=== PATIENT | female | born 1960 | race African-American/Black ===

== ENCOUNTER 2016-10-30 14:44 | Inpatient (IN) | payer OTHER ==
[~2016-10-30] VITALS: Ht 162.6 cm; Wt 70.9 kg
[~2016-10-30 14:44] MED LIST: ALPR0.5T6 PO; AMLO10TA2 PO; CALC667C6 PO; CALC667T3 PO; CARV12.52 PO; DIVA250T4 PO; DIVA500T17 PO; GABA-586 PO; HYDR-2869 PO; LAMO25TA PO; LEVO125T5 PO; NICO1PAT21 TP; OLAN10TA7 PO; ONDA4TAB10 SL; OXYC10TA PO; OXYC10TA57 PO; RISP4TAB2 PO; SERT100T PO; SEVE800T PO; SIMV40TA3 PO
--- NOTE | 2016-10-30 15:25 | PHYS DOC ---
Past Medical History Past Medical History: Diabetes-Type II, High Cholesterol, Hypertension, Hypothyroid, Hepatitis, Renal Disease, Renal Failure, Schizophrenia Additional Past Medical Histor: HEP C, CHRONIC BACK/HIP PAIN, DRUG SEEKING BEHAVIOR, PCP Past Surgical History: Cholecystectomy, Hysterectomy Additional Past Surgical Histo: R ARM Fistula, back surgery Alcohol Use: None Drug Use: Cocaine, Phencyclidine Adult General Chief Complaint Chief Complaint: ABDOMINAL PAIN HPI HPI 25-year-old female presenting to the emergency department today with abdominal pain in the left lower quadrant. She also reports missing dialysis on Sunday. Her pain is sharp intermittent and not associated with nausea or vomiting. She denies fevers or chills. She last ate approximately 10 AM. She reports having a bowel movement today that was formed. She denies chest pain or shortness of breath. The pain radiates to her left leg. Review of systems is negative for chest pain shortness of breath nausea vomiting fevers or chills. All other review of systems is negative unless otherwise noted in history of present illness. Review of Systems Review of Systems SEE ABOVE. Current Medications Current Medications Current Medications Medications (Trade) Dose Ordered Sig/Zayda Start Time Stop Time Status Last Admin Dose Admin Acetaminophen (Tylenol) 650 mg PRN Q6HRS PRN 10/30/16 19:30 UNV Acetaminophen/ Hydrocodone Bitart (Lortab 5/325) 1 tab PRN Q4HRS PRN 10/30/16 19:30 10/30/16 19:46 1 TAB Alprazolam (Xanax) 0.5 mg PRN Q8HRS PRN 10/30/16 19:30 10/30/16 22:05 0.5 MG Aspirin (Children'S Aspirin) 324 mg 1X ONCE 10/30/16 17:00 10/30/16 17:01 DC 10/30/16 17:05 324 MG Non-Formulary Medication 1 tab PRN BID PRN 10/30/16 19:30 10/30/16 19:34 DC Ondansetron HCl (Zofran) 4 mg PRN Q6HRS PRN 10/30/16 19:30 Allergies Allergies Allergies Coded Allergies Type Severity Reaction Last Updated Verified tramadol Adverse Reaction Intermediate VOMITING 04/05/16 Yes Physical Exam Physical Exam Constitutional: Well developed, well nourished, no acute distress, non-toxic appearance. HENT: Normocephalic, atraumatic, bilateral external ears normal, oropharynx moist, no oral exudates, nose normal. [] Eyes: PERRLA, EOMI, conjunctiva normal, no discharge. [] Neck: Normal range of motion, no tenderness, supple, no stridor. Cardiovascular:Heart rate regular rhythm, no murmur [] Lungs & Thorax: Bilateral breath sounds clear to auscultation [] Abdomen: Soft mild tenderness in left lower quadrant without rebound tenderness or guarding present. Skin: Warm, dry, no erythema, no rash. [] Back: No tenderness, no CVA tenderness. Extremities: No tenderness, no cyanosis, no clubbing, ROM intact, no edema. [] Neurologic: Alert and oriented X 3, normal motor function, normal sensory function, no focal deficits noted. Psychologic: Affect normal, judgement normal, mood normal. Current Patient Data Vital Signs Vital Signs Date Time Temp Pulse Resp B/P Pulse Ox O2 Delivery O2 Flow Rate FiO2 10/30/16 19:30 78 18 151/73 98 Room Air 10/30/16 15:00 98.3 98.3 Lab Values Laboratory Tests Test 10/30/16 16:10 10/30/16 16:25 10/30/16 17:20 White Blood Count 5.7x10^3/uL (4.0-11.0) Red Blood Count 2.61x10^6/uL (3.50-5.40) L Hemoglobin 7.4g/dL (12.0-15.5) L Hematocrit 22.7% (36.0-47.0) L Mean Corpuscular Volume 87fL (79-100) Mean Corpuscular Hemoglobin 28pg (25-35) Mean Corpuscular Hemoglobin Concent 33g/dL (31-37) Red Cell Distribution Width 16.6% (11.5-14.5) H Platelet Count 136x10^3/uL (140-400) L Neutrophils (%) (Auto) 65% (31-73) Lymphocytes (%) (Auto) 18% (24-48) L Monocytes (%) (Auto) 14% (0-9) H Eosinophils (%) (Auto) 2% (0-3) Basophils (%) (Auto) 1% (0-3) Neutrophils # (Auto) 3.7x10^3uL (1.8-7.7) Lymphocytes # (Auto) 1.0x10^3/uL (1.0-4.8) Monocytes # (Auto) 0.8x10^3/uL (0.0-1.1) Eosinophils # (Auto) 0.1x10^3/uL (0.0-0.7) Basophils # (Auto) 0.0x10^3/uL (0.0-0.2) Sodium Level 141mmol/L (136-145) Potassium Level 5.1mmol/L (3.5-5.1) Chloride Level 102mmol/L (98-107) Carbon Dioxide Level 24mmol/L (21-32) Anion Gap 15 (6-14) H Blood Urea Nitrogen 74mg/dL (7-20) H Creatinine 9.7mg/dL (0.6-1.0) H Estimated GFR (Cockcroft-Gault) 5.1 Glucose Level 90mg/dL (70-99) Lactic Acid Level 0.4mmol/L (0.4-2.0) Calcium Level 8.6mg/dL (8.5-10.1) Total Bilirubin 0.5mg/dL (0.2-1.0) Direct Bilirubin 0.2mg/dL (0.0-0.2) Aspartate Amino Transferase (AST) 37U/L (15-37) Alanine Aminotransferase (ALT) 25U/L (14-59) Alkaline Phosphatase 111U/L (46-116) Troponin I Quantitative 0.371ng/mL (0.000-0.055) VY-Exm-V-Type Natriuretic Peptide > 31232bb/mL (0-124) H Total Protein 6.8g/dL (6.4-8.2) Albumin 3.0g/dL (3.4-5.0) L Lipase 151U/L (73-393) POC Urine HCG, Qualitative Hcg negative (Negative) Urine Collection Type Unknown Urine Color Yellow Urine Clarity Cloudy Urine pH 8.0 Urine Specific [place] 1.015 Urine Protein >=300mg/dL (NEG-TRACE) Urine Glucose (UA) 100mg/dL (NEG) Urine Ketones (Stick) Negativemg/dL (NEG) Urine Blood Small (NEG) Urine Nitrite Negative (NEG) Urine Bilirubin Negative (NEG) Urine Urobilinogen Dipstick 0.2mg/dL (0.2 mg/dL) Urine Leukocyte Esterase Negative (NEG) Urine RBC Occ/HPF (0-2) Urine WBC 1-4/HPF (0-4) Urine Squamous Epithelial Cells Many/LPF Urine Bacteria Moderate/HPF (0-FEW) Urine Yeast Present/HPF Laboratory Tests 10/30/16 16:10 Laboratory Tests 10/30/16 16:10 EKG EKG [] Radiology/Procedures Radiology/Procedures [] Course & Med Decision Making Course & Med Decision Making Pertinent Labs and Imaging studies reviewed. (See chart for details) [] 55-year-old female presenting to the emergency department today with abdominal pain and after missing dialysis on Sunday. Initially the patient's vital signs afebrile normal heart rate. Mild hypertension present. Saturating well on room air. Pertinent physical exam showed mild tenderness in the left lower quadrant. IV established, blood work obtained, CT the abdomen pelvis performed. Troponin positive. ProBNP significantly elevated likely secondary to not being dialyzed on Sunday. Lactic acid within normal limits. CBC shows anemia of 7.4 down approximately 1. from previous. Urinalysis shows moderate bacteria with many squamous cells contaminated probably. Given the patient's anemia lack of dialysis and significant abdominal pain. The patient was admitted for further evaluation workup and care. Dragon Disclaimer Dragon Disclaimer This electronic medical record was generated, in whole or in part, using a voice recognition dictation system. Departure Departure Impression: Primary Impression: Abdominal pain Additional Impression: ESRD (end stage renal disease) Disposition: ADMITTED INPATIENT Condition: STABLE Referrals: NO PCP (PCP) ROLA STACY MD Patient Instructions: Abdominal Pain Problem Qualifiers ARIANNA ALLEN MD Oct 30, 2016 15:25
--- NOTE | 2016-10-30 15:33 | RAD ---
Portable chest, 10/30/2016: History: Weakness, difficulty urinating Comparison is made to a study from 04/23/2016. The heart is generally enlarged. The pulmonary vascularity is within normal limits. No pulmonary consolidation is seen. There is no evidence of pleural fluid. IMPRESSION: Moderate unchanged cardiomegaly.
--- NOTE | 2016-10-30 15:54 | RAD ---
Indication abdominal pain and flank pain. The study is limited. No IV or gastrointestinal contrast was administered. No prior CT imaging of the abdomen or pelvis is available. There are pleural-parenchymal changes at the lung bases probably reflecting scar. There is diffuse soft tissue swelling suggesting a systemic process such as anasarca. There is some generalized cardiomegaly. A focal mass lesion is not seen in the liver or spleen. The pancreas is grossly normal. There is some soft tissue prominence surrounding the aorta. It is uncertain whether these represents unopacified bowel loops or adenopathy. Multiple surgical clips are seen in the retroperitoneum. The circle kidneys are very small. There is no suggested hydronephrosis. Acute finding in the abdomen is not seen. There is some diastases of the rectus muscles at the level of the umbilicus. Significant plaquing is noted associated with the abdominal aorta. There is a small to moderate amount of free fluid in the pelvis. No definite acute finding is not seen. IMPRESSION: Probable pleural-parenchymal scarring at the lung bases. [place] kidneys are very small. Clinical correlation advised. Retroperitoneal adenopathy versus unopacified bowel loops. Suggested anasarca. Moderate amount of free fluid in the pelvis. No definite acute finding seen in the abdomen or pelvis PQRS Compliance Statement: One or more of the following individualized dose reduction techniques were utilized for this examination: 1. Automated exposure control 2. Adjustment of the mA and/or kV according to patient size 3. Use of iterative reconstruction technique
--- NOTE | 2016-10-30 16:15 | EKG ---
[facility] [address] [place] [address] Test Date: 2016-10-30 Test Time: 15:47:15 Pat Name: BUDDY GUERRA Department: Room: Gender: F Container Washer: : 1960 Requested By: ARIANNA ALLEN Order Number: [id number] Reading MD: Tien Turcios Measurements Intervals [place] Rate: 75 P: 51 ID: [id number] QRS: -43 QRSD: 118 T: 18 QT: 442 QTc: 497 Interpretive Statements SINUS RHYTHM LEFT ATRIAL ABNORMALITY ABNORMAL LEFT AXIS DEVIATION LEFT ANTERIOR FASCICULAR BLOCK INCOMPLETE RIGHT BUNDLE BRANCH BLOCK QRS(T) CONTOUR ABNORMALITY CONSIDER ANTEROSEPTAL MYOCARDIAL DAMAGE PROLONGED QT ABNORMAL ECG Electronically Signed On 11-13-2016 15:26:52 CDT by Tien Turcios
[2016-10-30 16:31] LABS: BASO % 1 % (0-3); EOS % 2 % (0-3); HEMATOCRIT 22.7 % (36.0-47.0); HEMOGLOBIN 7.4 g/dL (12.0-15.5); LYMPH % 18 % (24-48); MEAN CORPUSCULAR HEMOGLOBIN 28 pg (25-35); MEAN CORPUSCULAR HGB CONC 33 g/dL (31-37); MEAN CORPUSCULAR VOLUME 87 fL (79-100); MONO % 14 % (0-9); NEUT % 65 % (31-73); PLATELET COUNT 136 x10^3/uL (140-400); RED BLOOD COUNT 2.61 x10^6/uL (3.50-5.40); RED CELL DISTRIBUTION WIDTH 16.6 % (11.5-14.5); WHITE BLOOD COUNT 5.7 x10^3/uL (4.0-11.0)
[2016-10-30 16:42] LABS: CALCIUM 8.6 mg/dL (8.5-10.1); CREATININE 9.7 mg/dL (0.6-1.0); GFR 5.1; POTASSIUM 5.1 mmol/L (3.5-5.1)
[2016-10-30 16:49] LABS: DIRECT BILIRUBIN 0.2 mg/dL (0.0-0.2); TOTAL BILIRUBIN 0.5 mg/dL (0.2-1.0); TOTAL PROTEIN 6.8 g/dL (6.4-8.2)
[2016-10-30] MEDS ORDERED: ASPIRIN 81 MG TAB.CHEW PO ONE (17:00)
[2016-10-30 17:38] LABS: BILIRUBIN,URINE NEGATIVE (NEG); GLUCOSE,URINE 100 mg/dL (NEG); NITRITE,URINE NEGATIVE (NEG); PROTEIN,URINE >=300 mg/dL (NEG-TRACE); UROBILINOGEN,URINE 0.2 mg/dL (0.2 mg/dL)
[2016-10-30 17:48] LABS: BACTERIA,URINE MODERATE /HPF (0-FEW); RBC,URINE OCC /HPF (0-2); SQUAMOUS EPITHELIAL CELL,UR MANY /LPF; YEAST,URINE PRESENT /HPF
[2016-10-30] MEDS ORDERED: ACETAMINOPHEN 325 MG TABLET. PO PRN (19:30)
[2016-10-30] MEDS ORDERED: NON FORMULARY ITEM (Oxycodone Hcl 1 TAB) PO PRN (19:30)
[2016-10-30] MEDS ORDERED: hydrALAZINE 20 MG/ML VIAL. IVP PRN (19:45)
[2016-10-30] MEDS: HYDROCODONE/APAP 5/325MG TABLET. PO PRN (19:46)
--- NOTE | 2016-10-30 19:48 | PDOC1 ---
History and Physical Date of Admission Date of Admission 10/30/16 Identification/Chief Complaint Chief Complaint LLQ pain Problems: Source Source: Chart review, Patient History of Present Illness History of Present Illness HPI HPI 55-year-old female presenting to the emergency department today with abdominal pain in the left lower quadrant. 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 Very uncompliant to her HD, missed her HD again last Sat, and signed AMA to [facility] before and nobody would like to take her. She said she started to have LLQ abd pain from yesterday, with some nausea, no vomiting, usually has constipation last time was today, normal to her. She said she was in [facility] last week for gib , got EGD found she has stomach bleeding. She also said she has rectal bleeding yesterday. denies fever, chills, cough, sob, chest pain. CT found some free pelvic fluid, otherwise unremarkable. Past Medical History Cardiovascular: HTN Pulmonary: No pertinent hx CENTRAL NERVOUS SYSTEM: Carpal Tunnel Syndrome GI: No pertinent hx Heme/Onc: Anemia NOS Renal/: Chronic renal failure Endocrine: No pertinent hx, Diabetes, Hyperparathyroidism Past Surgical History Past Surgical History: No pertinent history Family History Family History: No Significant Social History Smoke: 1 pack per day ALCOHOL: none Drugs: None Current Problem List Problem List Problems Medical Problems: (1) Abdominal pain Status: Acute Current Medications Current Medications Current Medications Medications (Trade) Dose Ordered Sig/Zayda Start Time Stop Time Status Last Admin Dose Admin Acetaminophen (Tylenol) 650 mg PRN Q6HRS PRN 10/30/16 19:45 Acetaminophen/ Hydrocodone Bitart (Lortab 5/325) 1 tab PRN Q4HRS PRN 10/30/16 19:30 Alprazolam (Xanax) 0.5 mg PRN Q8HRS PRN 10/30/16 19:30 Amlodipine Besylate (Norvasc) 10 mg DAILY 10/31/16 09:00 UNV Aspirin (Children'S Aspirin) 324 mg 1X ONCE 10/30/16 17:00 10/30/16 17:01 DC 10/30/16 17:05 324 MG Calcium Acetate (Phoslo) 667 mg TIDWMEALS 10/31/16 08:00 UNV Carvedilol (Coreg) 12.5 mg BIDWMEALS 10/31/16 08:00 UNV Divalproex Sodium (Depakote) 250 mg TID 10/30/16 21:00 UNV Gabapentin (Neurontin) 300 mg DAILY 10/31/16 09:00 UNV Heparin Sodium (Porcine) 5,000 unit Q8HRS 10/30/16 22:00 UNV Hydralazine HCl (Apresoline) 10 mg PRN Q5MIN PRN 10/30/16 19:45 UNV Lamotrigine (LaMICtal) 25 mg DAILY 10/31/16 09:00 UNV Levothyroxine Sodium (Synthroid) 125 mcg DAILYAC 10/31/16 07:30 UNV Nicotine (Nicoderm Cq 21mg) 1 patch DAILY 10/31/16 09:00 UNV Non-Formulary Medication 800 mg TIDWMEALS 10/31/16 08:00 UNV Ondansetron HCl (Zofran) 4 mg PRN Q6HRS PRN 10/30/16 19:30 Simvastatin (Zocor) 40 mg HS 10/30/16 21:00 UNV Allergies Allergies Allergies Coded Allergies Type Severity Reaction Last Updated Verified tramadol Adverse Reaction Intermediate VOMITING 04/05/16 Yes ROS Review of System CONSTITUTIONAL: No fever or chills EYES: No recent changes SKIN: No rash or itching CARDIOVASCULAR: No chest pain, syncope, palpitations, or edema RESPIRATORY: No SOB or cough GASTROINTESTINAL: No nausea, vomiting or abdominal pain NEUROLOGICAL: No headaches or weakness ENDOCRINE: No cold or heat intolerance GENITOURINARY: No urgency or frequency of urination MUSCULOSKELETAL: No back pain or joint pain LYMPHATICS: No enlarged lymph nodes PSYCHIATRIC: No anxiety or depression Physical Exam Physical Exam GEN.: No apparent distress. Alert and oriented. HEENT: Head is normocephalic, atraumatic NECK: Supple. LUNGS: Clear to auscultation. HEART: RRR, S1, S2 present. Peripheral pulses intact ABDOMEN: Soft, Positive bowel sounds. mild epigastric and LLQ tenderness EXTREMITIES: Without any cyanosis. NEUROLOGIC: Normal speech, normal tone PSYCHIATRIC: Normal affect, normal mood. SKIN: No ulcerations Vitals Vitals Vital Signs Date Time Temp Pulse Resp B/P Pulse Ox O2 Delivery O2 Flow Rate FiO2 10/30/16 18:30 80 18 149/74 98 Room Air 10/30/16 15:00 98.3 98.3 Labs Labs Laboratory Tests Test 10/30/16 16:10 10/30/16 16:25 10/30/16 17:20 White Blood Count 5.7x10^3/uL (4.0-11.0) Red Blood Count 2.61x10^6/uL (3.50-5.40) Hemoglobin 7.4g/dL (12.0-15.5) Hematocrit 22.7% (36.0-47.0) Mean Corpuscular Volume 87fL (79-100) Mean Corpuscular Hemoglobin 28pg (25-35) Mean Corpuscular Hemoglobin Concent 33g/dL (31-37) Red Cell Distribution Width 16.6% (11.5-14.5) Platelet Count 136x10^3/uL (140-400) Neutrophils (%) (Auto) 65% (31-73) Lymphocytes (%) (Auto) 18% (24-48) Monocytes (%) (Auto) 14% (0-9) Eosinophils (%) (Auto) 2% (0-3) Basophils (%) (Auto) 1% (0-3) Neutrophils # (Auto) 3.7x10^3uL (1.8-7.7) Lymphocytes # (Auto) 1.0x10^3/uL (1.0-4.8) Monocytes # (Auto) 0.8x10^3/uL (0.0-1.1) Eosinophils # (Auto) 0.1x10^3/uL (0.0-0.7) Basophils # (Auto) 0.0x10^3/uL (0.0-0.2) Sodium Level 141mmol/L (136-145) Potassium Level 5.1mmol/L (3.5-5.1) Chloride Level 102mmol/L (98-107) Carbon Dioxide Level 24mmol/L (21-32) Anion Gap 15 (6-14) Blood Urea Nitrogen 74mg/dL (7-20) Creatinine 9.7mg/dL (0.6-1.0) Estimated GFR (Cockcroft-Gault) 5.1 Glucose Level 90mg/dL (70-99) Lactic Acid Level 0.4mmol/L (0.4-2.0) Calcium Level 8.6mg/dL (8.5-10.1) Total Bilirubin 0.5mg/dL (0.2-1.0) Direct Bilirubin 0.2mg/dL (0.0-0.2) Aspartate Amino Transf (AST/SGOT) 37U/L (15-37) Alanine Aminotransferase (ALT/SGPT) 25U/L (14-59) Alkaline Phosphatase 111U/L (46-116) Troponin I Quantitative 0.371ng/mL (0.000-0.055) UT-Jpo-R-Type Natriuretic Peptide > 39024uc/mL (0-124) Total Protein 6.8g/dL (6.4-8.2) Albumin 3.0g/dL (3.4-5.0) Lipase 151U/L (73-393) Bedside Urine HCG, Qualitative Hcg negative (Negative) Urine Collection Type Unknown Urine Color Yellow Urine Clarity Cloudy Urine pH 8.0 Urine Specific [place] 1.015 Urine Protein >=300mg/dL (NEG-TRACE) Urine Glucose (UA) 100mg/dL (NEG) Urine Ketones (Stick) Negativemg/dL (NEG) Urine Blood Small (NEG) Urine Nitrite Negative (NEG) Urine Bilirubin Negative (NEG) Urine Urobilinogen Dipstick 0.2mg/dL (0.2 mg/dL) Urine Leukocyte Esterase Negative (NEG) Urine RBC Occ/HPF (0-2) Urine WBC 1-4/HPF (0-4) Urine Squamous Epithelial Cells Many/LPF Urine Bacteria Moderate/HPF (0-FEW) Urine Yeast Present/HPF Laboratory Tests Test 10/30/16 16:10 10/30/16 16:25 10/30/16 17:20 White Blood Count 5.7x10^3/uL (4.0-11.0) Red Blood Count 2.61x10^6/uL (3.50-5.40) Hemoglobin 7.4g/dL (12.0-15.5) Hematocrit 22.7% (36.0-47.0) Mean Corpuscular Volume 87fL (79-100) Mean Corpuscular Hemoglobin 28pg (25-35) Mean Corpuscular Hemoglobin Concent 33g/dL (31-37) Red Cell Distribution Width 16.6% (11.5-14.5) Platelet Count 136x10^3/uL (140-400) Neutrophils (%) (Auto) 65% (31-73) Lymphocytes (%) (Auto) 18% (24-48) Monocytes (%) (Auto) 14% (0-9) Eosinophils (%) (Auto) 2% (0-3) Basophils (%) (Auto) 1% (0-3) Neutrophils # (Auto) 3.7x10^3uL (1.8-7.7) Lymphocytes # (Auto) 1.0x10^3/uL (1.0-4.8) Monocytes # (Auto) 0.8x10^3/uL (0.0-1.1) Eosinophils # (Auto) 0.1x10^3/uL (0.0-0.7) Basophils # (Auto) 0.0x10^3/uL (0.0-0.2) Sodium Level 141mmol/L (136-145) Potassium Level 5.1mmol/L (3.5-5.1) Chloride Level 102mmol/L (98-107) Carbon Dioxide Level 24mmol/L (21-32) Anion Gap 15 (6-14) Blood Urea Nitrogen 74mg/dL (7-20) Creatinine 9.7mg/dL (0.6-1.0) Estimated GFR (Cockcroft-Gault) 5.1 Glucose Level 90mg/dL (70-99) Lactic Acid Level 0.4mmol/L (0.4-2.0) Calcium Level 8.6mg/dL (8.5-10.1) Total Bilirubin 0.5mg/dL (0.2-1.0) Direct Bilirubin 0.2mg/dL (0.0-0.2) Aspartate Amino Transf (AST/SGOT) 37U/L (15-37) Alanine Aminotransferase (ALT/SGPT) 25U/L (14-59) Alkaline Phosphatase 111U/L (46-116) Troponin I Quantitative 0.371ng/mL (0.000-0.055) GY-Jqa-W-Type Natriuretic Peptide > 64241jp/mL (0-124) Total Protein 6.8g/dL (6.4-8.2) Albumin 3.0g/dL (3.4-5.0) Lipase 151U/L (73-393) Bedside Urine HCG, Qualitative Hcg negative (Negative) Urine Collection Type Unknown Urine Color Yellow Urine Clarity Cloudy Urine pH 8.0 Urine Specific [place] 1.015 Urine Protein >=300mg/dL (NEG-TRACE) Urine Glucose (UA) 100mg/dL (NEG) Urine Ketones (Stick) Negativemg/dL (NEG) Urine Blood Small (NEG) Urine Nitrite Negative (NEG) Urine Bilirubin Negative (NEG) Urine Urobilinogen Dipstick 0.2mg/dL (0.2 mg/dL) Urine Leukocyte Esterase Negative (NEG) Urine RBC Occ/HPF (0-2) Urine WBC 1-4/HPF (0-4) Urine Squamous Epithelial Cells Many/LPF Urine Bacteria Moderate/HPF (0-FEW) Urine Yeast Present/HPF VTE Prophylaxis Ordered VTE Prophylaxis Devices: Yes VTE Pharmacological Prophylaxi: Yes Assessment/Plan Assessment/Plan 1. abd pain, with chronic constipation likely 2. ESRD on HD 3. Type 2 diabetes 4. High cholesterol 5. Hypertension 6. Hypothyroidism 7. Hepatitis C 8. h/o PCP Abuse 9. Chronic back and hip pain 10. acute on chronic anemia, with ESRD, recent GIB 11. NON compliance 12. H/O Schizophrenia, suicidal idea 13. HOMELESS plan: 1. renal, gi consult 2. cont home meds 3, need HD tmr 4. sw for homeless pt wants to be dced tmr, since she has an appt with pcp in . gi ppx TIFFANIE JASON MD Oct 30, 2016 19:48
[2016-10-30 21:10] VITALS: BP 142/76
[2016-10-30] MEDS: HEPARIN PF for SUB-Q USE 5,000 UNIT/0.5 ML VIAL. SQ SCH (22:00)
[2016-10-30] MEDS: DIVALPROEX DELAYED RELEASE 250 MG TABLET.DR. PO SCH (22:04)
[2016-10-30] MEDS: OLANZAPINE 5 MG TABLET. PO SCH (22:05)
[2016-10-30] MEDS: ALPRAZOLAM 0.5 MG TABLET PO PRN (22:05)
[2016-10-30] MEDS: ATORVASTATIN CALCIUM 20 MG TABLET PO SCH (22:05)
[2016-10-30] MEDS: HYDRALAZINE 50 MG TABLET PO SCH (22:07)
[2016-10-30 23:00] VITALS: BP 147/65
--- NOTE | 2016-10-31 00:06 | ACF ---
Admission Forms Criteria ABDOMINAL PAIN Clinical Indications for Admission to Inpatient Care (Place 'X' for any and all applicable criteria): Admission is indicated for ANY ONE of the following(1)(2)(3)(4)(5): [ X]I. Inpatient admission required rather than observation care (Also use Abdominal Pain: Observation Care, as appropriate) because of ANY ONE of the following: [ ]a) Severe pain requiring acute inpatient management [ ]b) Identification of etiology/finding that requires inpatient care (eg, aortic dissection, free air) [ ]c) Absent bowel sounds with complete ileus(6) [ ]d) Suspected toxic megacolon [ ]e) Severe electrolyte abnormalities requiring inpatient care [ ]f) High fever or infection requiring inpatient admission as indicated by ANY ONE of following(7)(8): [ ] i) Appropriate outpatient or observational care antimicrobial treatment unavailable, not effective, or not feasible [ ] ii) Documented bacteremia [ ] iii) Temperature > 104.9 degrees F (oral) [ ] iv) T >103.1 F (oral) or < 96.8 F(rectal) that does not respond to all emergency treatment measures [ ]g) Signs of intestinal obstruction [B] [ ]h) Hemodynamic instability [ ]i) IV fluid to replace significant ongoing losses (greater than 3 L/m2 per day) (12)(13) [ ]j) Percutaneous or open drainage (eg, abscess, biliary tract ) procedures [ ]k) Parenteral nutrition regimen that must be implemented on inpatient basis [ X]l) Other condition,treatment or monitoring requiring inpatient admission. [ ]II. Peritoneal signs present [ ]III. Surgery needed that cannot be performed on an ambulatory basis. [ ]IV. Evaluation requires patient to not eat or drink for extended period ( eg, more than 24 hours). [ ]V. Contraindications and/or Inappropriate clinical situations for Observational Care in patients with abdominal pain, when ANY ONE of the following is required: [ ]a) Thorough evaluation is required to prevent catastrophic events due to delays in diagnosing (e.g.Mesenteric ischemia) 1,3 [ ]b) Patient with severe pathology or with chronic symptoms unlikely to improve in the ED stay (3) [ ]. General contraindications and/or Inappropriate clinical situations for Observational Care in patients with abdominal pain, when ANY ONE of the following is required: [ ]a) Prediction of prolongation of LOS based on ANY ONE of the following may be considered as a contraindication for observational care 2, 3, 4, 5, 6, 7, 8, 9, 10, 11 [ ]i) Age > 65 yrs. [ ]ii) Patient arriving by ambulance [ ]iii) Patient with high acuity [ ]iv) Patient requiring vital sign monitoring [ ]v) Patient on IV medication [ ]b) Systolic blood pressures 180mmHg 3,12 [ ]c) Patient with altered mental status including delirium and other alteration of consciousness, (3) [ ]d) Patient whose discharge disposition will be to a senior care home or rehabilitation home should not be managed in Emergency Department Observation Unit. CMS rule requires 3 days hospital stay before such placement.3,13 [ ]e) Patient with failure to thrive due to broad array of etiologies 3,16,17 [ ]f) Inability to ambulate 3,14 Extended stay beyond goal length of stay may be needed for(2)(3): [ ]a) Persistent abdominal pain with suspected intra-abdominal process [ ]b) Diagnosed condition requiring continued stay (e.g., pancreatitis, complicated diverticulitis) [ ]c) Surgery (e.g., colectomy) The original [facility] content created by [employer] has been revised. The portions of the content which have been revised are identified through the use of italic text or in bold, and [facility] has neither reviewed nor approved the modified material.All other unmodified content is copyright [employer] [facility]. Please see references footnoted in the original [facility] edition 2016 Admission Criteria Met?: Yes ADRIEL ALONSO Oct 31, 2016 00:06
[2016-10-31] MEDS: HYDROCODONE/APAP 5/325MG TABLET. PO PRN ×4 (00:13→19:26)
[2016-10-31 03:00] VITALS: BP 133/70
[2016-10-31 04:28] LABS: BASO % 1 % (0-3); EOS % 2 % (0-3); HEMATOCRIT 21.7 % (36.0-47.0); HEMOGLOBIN 7.1 g/dL (12.0-15.5); LYMPH # 1.3 x10^3/uL (1.0-4.8); LYMPH % 25 % (24-48); MEAN CORPUSCULAR HEMOGLOBIN 29 pg (25-35); MEAN CORPUSCULAR HGB CONC 33 g/dL (31-37); MEAN CORPUSCULAR VOLUME 88 fL (79-100); MONO % 14 % (0-9); NEUT % 59 % (31-73); PLATELET COUNT 127 x10^3/uL (140-400); RED BLOOD COUNT 2.48 x10^6/uL (3.50-5.40); RED CELL DISTRIBUTION WIDTH 16.7 % (11.5-14.5); WHITE BLOOD COUNT 5.3 x10^3/uL (4.0-11.0)
[2016-10-31 04:51] LABS: CALCIUM 8.4 mg/dL (8.5-10.1); CREATININE 10.8 mg/dL (0.6-1.0); GFR 4.5; POTASSIUM 5.2 mmol/L (3.5-5.1)
[2016-10-31 04:54] LABS: % SAT IRON 12 % (15-34); IRON,SERUM 38 ug/dL (50-170)
[2016-10-31 04:55] LABS: ALBUMIN 2.7 g/dL (3.4-5.0); PHOSPHORUS 7.2 mg/dL (2.6-4.7)
[2016-10-31] MEDS: HEPARIN PF for SUB-Q USE 5,000 UNIT/0.5 ML VIAL. SQ SCH ×3 (06:00→21:12)
[2016-10-31 07:00] VITALS: BP 137/81
[2016-10-31] MEDS ORDERED: CALCIUM ACETATE 667 MG CAPSULE PO SCH (08:00)
[2016-10-31] MEDS: SERTRALINE 50 MG TABLET. PO SCH (08:43)
[2016-10-31] MEDS: PANTOPRAZOLE 40 MG TABLET. PO SCH (08:44)
[2016-10-31] MEDS: DIVALPROEX DELAYED RELEASE 250 MG TABLET.DR. PO SCH ×3 (08:44→21:11)
[2016-10-31] MEDS: SEVELAMER CARBONATE 800 MG TABLET. PO SCH ×3 (08:44→17:00)
[2016-10-31] MEDS: LEVOTHYROXINE 125 MCG TABLET PO SCH (08:44)
[2016-10-31] MEDS: lamoTRIgine 25 MG TABLET. PO SCH (08:44)
[2016-10-31] MEDS: risperiDONE 1 MG TABLET. PO SCH (08:44)
[2016-10-31] MEDS: CARVEDILOL 12.5 MG TABLET PO SCH ×2 (08:45→17:00)
[2016-10-31] MEDS: NICOTINE 21MG PATCH. TD SCH (08:46)
[2016-10-31] MEDS: GABAPENTIN 300 MG CAPSULE. PO SCH (08:46)
[2016-10-31] MEDS: AMLODIPINE BESYLATE 10 MG TABLET PO SCH (09:00)
[2016-10-31] MEDS: HYDRALAZINE 50 MG TABLET PO SCH ×4 (09:00→21:11)
--- NOTE | 2016-10-31 09:57 | PDOC2 ---
GI CONSULT Reason For Consult: Abd pain HPI: HPI: 56 y/o female evaluated in the ER for LLQ pain and missed dialysis (on 10/28). PMH significant for polysubstance abuse (recent tox screen at [facility] + cocaine) and non-compliance. Recent GI eval at [facility] (admitted for suicidal ideation, h/ o substance abuse) for intermittent black stools and anemia (Hgb 6.7). EGD by Dr. Andersen on 10/22/16 showed normal esophagus, antral gastritis (path w/ reactive gastropathy), duodenal nodules (path: benign duodenal mucosa w/ reactive and hyperplastic mucosal changes), and duodenal angioma obliterated w/ cautery. Note is made also of EGD by Dr. Lizarraga which showed grade 1 esophagitis , moderate amount of retained food, [id number] cratered ulcer in the antrum (H. pylori negative), and normal small bowel. Another EGD by Dr. Moran from 2010 which revealed grade IV esophagitis, hypertrophic gastric folds, and duodenitis. Was also scoped by Dr. Case in 2007; EGD then revealed mild antral gastritis and colonoscopy showed uncomplicated internal hemorrhoids. [place] [facility] [place] tells me LLQ pain began about 1 day ago w/o precipitating events. She feels this may be due to constipation. Last BM yesterday, normal pattern of 1 stool daily w/ feeling of incomplete evacuation. Recently saw some "light red blood" in one stool. Denies melena. Unclear if she is taking iron as recently recommended at [facility]. No NSAID use. Denies change in appetite but reports a 60 pound weight loss within the past year. For heartburn, she is currently taking Protonix Q a.m. which improves symptoms. Did have some nausea the other day w/o vomiting. Additional h/o Hep C x 15 years w/o treatment. Asks for more pain medication this morning, also asks if she can DC today. Labs significant for Hgb 7.4 (now 7.1), plt 127, BUN 86, Cr 10.8, BNP >92159, and low iron. PMH: PMH: anxiety/depression, substance abuse, schizophrenia, hallucinations, HTN, GERD, Hep C, anemia, DM, ESRD on HD, hypothyroidism, arthritis, cholecystectomy, uterine cancer s/p hysterectomy Social History: Smoke: <1 pack per day ALCOHOL: none Drugs: Other (PCP, cocaine) ROS: GEN: Denies fevers, chills, sweats HEENT: Denies blurred vision, sore throat CV: Denies chest pain RESP: Denies shortness of air, cough GI: Per HPI : Denies hematuria, dysuria ENDO: +weight loss NEURO: Denies confusion, dizziness MSK: Denies weakness, joint pain/swelling SKIN: Denies jaundice, pruritus VItals: Vitals: Vital Signs Date Time Temp Pulse Resp B/P Pulse Ox O2 Delivery O2 Flow Rate FiO2 10/31/16 08:45 65 137/81 10/31/16 07:00 98.1 17 97 Room Air 98.1 Labs: Labs: Laboratory Tests Test 10/30/16 16:10 10/30/16 16:25 10/30/16 17:20 10/30/16 21:20 White Blood Count 5.7x10^3/uL (4.0-11.0) Red Blood Count 2.61x10^6/uL (3.50-5.40) Hemoglobin 7.4g/dL (12.0-15.5) Hematocrit 22.7% (36.0-47.0) Mean Corpuscular Volume 87fL (79-100) Mean Corpuscular Hemoglobin 28pg (25-35) Mean Corpuscular Hemoglobin Concent 33g/dL (31-37) Red Cell Distribution Width 16.6% (11.5-14.5) Platelet Count 136x10^3/uL (140-400) Neutrophils (%) (Auto) 65% (31-73) Lymphocytes (%) (Auto) 18% (24-48) Monocytes (%) (Auto) 14% (0-9) Eosinophils (%) (Auto) 2% (0-3) Basophils (%) (Auto) 1% (0-3) Neutrophils # (Auto) 3.7x10^3uL (1.8-7.7) Lymphocytes # (Auto) 1.0x10^3/uL (1.0-4.8) Monocytes # (Auto) 0.8x10^3/uL (0.0-1.1) Eosinophils # (Auto) 0.1x10^3/uL (0.0-0.7) Basophils # (Auto) 0.0x10^3/uL (0.0-0.2) Sodium Level 141mmol/L (136-145) Potassium Level 5.1mmol/L (3.5-5.1) Chloride Level 102mmol/L (98-107) Carbon Dioxide Level 24mmol/L (21-32) Anion Gap 15 (6-14) Blood Urea Nitrogen 74mg/dL (7-20) Creatinine 9.7mg/dL (0.6-1.0) Estimated GFR (Cockcroft-Gault) 5.1 Glucose Level 90mg/dL (70-99) Lactic Acid Level 0.4mmol/L (0.4-2.0) Calcium Level 8.6mg/dL (8.5-10.1) Total Bilirubin 0.5mg/dL (0.2-1.0) Direct Bilirubin 0.2mg/dL (0.0-0.2) Aspartate Amino Transf (AST/SGOT) 37U/L (15-37) Alanine Aminotransferase (ALT/SGPT) 25U/L (14-59) Alkaline Phosphatase 111U/L (46-116) Troponin I Quantitative 0.371ng/mL (0.000-0.055) OL-Mhn-D-Type Natriuretic Peptide > 92692aa/mL (0-124) Total Protein 6.8g/dL (6.4-8.2) Albumin 3.0g/dL (3.4-5.0) Lipase 151U/L (73-393) Bedside Urine HCG, Qualitative Hcg negative (Negative) Urine Collection Type Unknown Urine Color Yellow Urine Clarity Cloudy Urine pH 8.0 Urine Specific Tanner 1.015 Urine Protein >=300mg/dL (NEG-TRACE) Urine Glucose (UA) 100mg/dL (NEG) Urine Ketones (Stick) Negativemg/dL (NEG) Urine Blood Small (NEG) Urine Nitrite Negative (NEG) Urine Bilirubin Negative (NEG) Urine Urobilinogen Dipstick 0.2mg/dL (0.2 mg/dL) Urine Leukocyte Esterase Negative (NEG) Urine RBC Occ/HPF (0-2) Urine WBC 1-4/HPF (0-4) Urine Squamous Epithelial Cells Many/LPF Urine Bacteria Moderate/HPF (0-FEW) Urine Yeast Present/HPF Glucose (Fingerstick) 186mg/dL (70-99) Test 10/31/16 03:35 10/31/16 07:51 White Blood Count 5.3x10^3/uL (4.0-11.0) Red Blood Count 2.48x10^6/uL (3.50-5.40) Hemoglobin 7.1g/dL (12.0-15.5) Hematocrit 21.7% (36.0-47.0) Mean Corpuscular Volume 88fL (79-100) Mean Corpuscular Hemoglobin 29pg (25-35) Mean Corpuscular Hemoglobin Concent 33g/dL (31-37) Red Cell Distribution Width 16.7% (11.5-14.5) Platelet Count 127x10^3/uL (140-400) Neutrophils (%) (Auto) 59% (31-73) Lymphocytes (%) (Auto) 25% (24-48) Monocytes (%) (Auto) 14% (0-9) Eosinophils (%) (Auto) 2% (0-3) Basophils (%) (Auto) 1% (0-3) Neutrophils # (Auto) 3.1x10^3uL (1.8-7.7) Lymphocytes # (Auto) 1.3x10^3/uL (1.0-4.8) Monocytes # (Auto) 0.8x10^3/uL (0.0-1.1) Eosinophils # (Auto) 0.1x10^3/uL (0.0-0.7) Basophils # (Auto) 0.0x10^3/uL (0.0-0.2) Sodium Level 140mmol/L (136-145) Potassium Level 5.2mmol/L (3.5-5.1) Chloride Level 101mmol/L (98-107) Carbon Dioxide Level 24mmol/L (21-32) Anion Gap 15 (6-14) Blood Urea Nitrogen 86mg/dL (7-20) Creatinine 10.8mg/dL (0.6-1.0) Estimated GFR (Cockcroft-Gault) 4.5 Glucose Level 170mg/dL (70-99) Calcium Level 8.4mg/dL (8.5-10.1) Phosphorus Level 7.2mg/dL (2.6-4.7) Iron Level 38ug/dL (50-170) Total Iron Binding Capacity 323ug/dL (250-450) Iron Saturation 12% (15-34) Ferritin 91ng/mL (8-252) Albumin 2.7g/dL (3.4-5.0) Glucose (Fingerstick) 142mg/dL (70-99) Allergies: Coded Allergies: tramadol (Verified Adverse Reaction, Intermediate, VOMITING, 04/05/16) Medications: Current Medications Medications (Trade) Dose Ordered Sig/Zayda Route PRN Reason Start Time Stop Time Status Last Admin Dose Admin Aspirin (Children'S Aspirin) 324 mg 1X ONCE PO 10/30/16 17:00 10/30/16 17:01 DC 10/30/16 17:05 Alprazolam (Xanax) 0.5 mg PRN Q8HRS PRN PO ANXIETY / AGITATION 10/30/16 19:30 10/30/16 22:05 Calcium Acetate (Phoslo) 667 mg TIDWMEALS PO 10/31/16 08:00 10/31/16 08:43 Carvedilol (Coreg) 12.5 mg BIDWMEALS PO 10/31/16 08:00 10/31/16 08:45 Divalproex Sodium (Depakote) 250 mg TID PO 10/30/16 21:00 10/31/16 08:44 Gabapentin (Neurontin) 300 mg DAILY PO 10/31/16 09:00 10/31/16 08:46 Hydralazine HCl (Apresoline) 50 mg QID PO 10/30/16 21:00 10/30/16 22:07 Lamotrigine (LaMICtal) 25 mg DAILY PO 10/31/16 09:00 10/31/16 08:44 Levothyroxine Sodium (Synthroid) 125 mcg DAILY07 PO 10/31/16 07:00 10/31/16 08:44 Nicotine (Nicoderm Cq 21mg) 1 patch DAILY TD 10/31/16 09:00 10/31/16 08:46 Atorvastatin Calcium (Lipitor) 20 mg QHS PO 10/30/16 22:00 10/30/16 22:05 Olanzapine (Zyprexa) 10 mg QHS PO 10/30/16 21:30 10/30/16 22:05 Risperidone (Risperdal) 4 mg DAILY PO 10/31/16 09:00 10/31/16 08:44 Sertraline HCl (Zoloft) 200 mg DAILY PO 10/31/16 09:00 10/31/16 08:43 Sevelamer Carbonate (Renvela) 800 mg TIDWMEALS PO 10/31/16 08:00 10/31/16 08:44 Acetaminophen/ Hydrocodone Bitart (Lortab 5/325) 1 tab PRN Q4HRS PRN PO MILD PAIN 10/30/16 19:30 10/31/16 04:45 Pantoprazole Sodium (Protonix) 40 mg DAILYAC PO 10/31/16 07:30 10/31/16 08:44 Imaging: Imaging: CT A/P w/o contrast 10/30/16 IMPRESSION: Probable pleural-parenchymal scarring at the lung bases. [place] kidneys are very small. Clinical correlation advised. Retroperitoneal adenopathy versus unopacified bowel loops. Suggested anasarca. Moderate amount of free fluid in the pelvis. No definite acute finding seen in the abdomen or pelvis. CXR 10/30/16 IMPRESSION: Moderate unchanged cardiomegaly. PE: GEN: NAD HEENT: Atraumatic, PERRL LUNGS: CTAB anteriorly HEART: RRR +murm ABD: NABS, soft, LLQ tenderness, epigastric and RUQ tenderness EXTREMITY: No edema SKIN: No rashes, no jaundice NEURO/PSYCH: A & O 3 A/P: A/P: Abd pain -LLQ by history, more so in upper abd on exam HAYES -no current bleeding -?on iron GERD, h/o PUD -h/o erosive esophagitis, normal esophagus on recent EGD -h/o gastric ulcer in 2011 (H. pylori negative), no ulcers on recent EGD -on PPI QD, no NSAID use H/o duodenal angioma -recent EGD and cautery @ [facility] Constipation -describes feeling of incomplete evacuation ESRD on HD -missed dialysis over the weekend CRC screen -can document in 2007 w/ internal hemorrhoids only Hep C -no treatment -- Difficult w/ non-compliance. GI-hamlin, would continue PPI and iron. Will add Miralax for constipation. Not a candidate for Hep C treatment. ARNAUD KITCHEN Oct 31, 2016 09:57
[2016-10-31 10:42] VITALS: BP 123/71
[2016-10-31] MEDS ORDERED: MAGNESIUM SULFATE 2GM 50 ML IV PRN (10:45)
[2016-10-31] MEDS ORDERED: POLYETHYLENE GLYCOL 3350 17 GM PACKET. PO PRN (10:45)
--- NOTE | 2016-10-31 10:49 | PDOC2 ---
CONSULT Date of Consult Date of Consult DATE: 10/31/16 TIME: 10:39 Reason for Consult Reason for Consult: ESRD Referring Physician Referring Physician: Dr Schaefer Identification/Chief Complaint Chief Complaint Missed HD Problems: Source Source: Chart review, Patient History of Present Illness Reason for Visit: as dictated Past Medical History Cardiovascular: HTN Pulmonary: No pertinent hx CENTRAL NERVOUS SYSTEM: Carpal Tunnel Syndrome GI: No pertinent hx Heme/Onc: Anemia NOS Musculoskeletal: Stiffness Renal/: Chronic renal failure Endocrine: No pertinent hx, Diabetes, Hyperparathyroidism Past Surgical History Past Surgical History: No pertinent history Family History Family History: No Significant Social History <1 pack per day ALCOHOL: none Drugs: Other (PCP, cocaine) Lives: Homeless Current Problem List Problem List Problems Medical Problems: (1) Abdominal pain Status: Acute (2) ESRD (end stage renal disease) Status: Acute Current Medications Current Medications Current Medications Aspirin (Children'S Aspirin) 324 mg 1X ONCE PO Last administered on 10/30/16 17:05; Start 10/30/16 at 17:00; Stop 10/30/16 at 17:01; Status DC Alprazolam (Xanax) 0.5 mg PRN Q8HRS PRN PO ANXIETY / AGITATION Last administered on 10/30/16 22:05; Start 10/30/16 at 19:30 Amlodipine Besylate (Norvasc) 10 mg DAILY PO ; Start 10/31/16 at 09:00 Calcium Acetate (Phoslo) 667 mg TIDWMEALS PO Last administered on 10/31/16 08: 43; Start 10/31/16 at 08:00 Carvedilol (Coreg) 12.5 mg BIDWMEALS PO Last administered on 10/31/16 08:45; Start 10/31/16 at 08:00 Divalproex Sodium (Depakote) 250 mg TID PO Last administered on 10/31/16 08:44 ; Start 10/30/16 at 21:00 Gabapentin (Neurontin) 300 mg DAILY PO Last administered on 10/31/16 08:46; Start 10/31/16 at 09:00 Hydralazine HCl (Apresoline) 50 mg QID PO Last administered on 10/30/16 22:07 ; Start 10/30/16 at 21:00 Lamotrigine (LaMICtal) 25 mg DAILY PO Last administered on 10/31/16 08:44; Start 10/31/16 at 09:00 Levothyroxine Sodium (Synthroid) 125 mcg DAILY07 PO Last administered on 08:44; Start 10/31/16 at 07:00 Nicotine (Nicoderm Cq 21mg) 1 patch DAILY TD Last administered on 10/31/16 08: 46; Start 10/31/16 at 09:00 Atorvastatin Calcium (Lipitor) 20 mg QHS PO Last administered on 10/30/16 22: 05; Start 10/30/16 at 22:00 Olanzapine (Zyprexa) 10 mg QHS PO Last administered on 10/30/16 22:05; Start 10/30/16 at 21:30 Non-Formulary Medication 1 tab PRN BID PRN PO Severe pain; Start 10/30/16 at 19 :30; Stop 10/30/16 at 19:34; Status DC Risperidone (Risperdal) 4 mg DAILY PO Last administered on 10/31/16 08:44; Start 10/31/16 at 09:00 Sertraline HCl (Zoloft) 200 mg DAILY PO Last administered on 10/31/16 08:43; Start 10/31/16 at 09:00 Sevelamer Carbonate (Renvela) 800 mg TIDWMEALS PO Last administered on 08:44; Start 10/31/16 at 08:00 Ondansetron HCl (Zofran) 4 mg PRN Q6HRS PRN IV NAUSEA/VOMITING; Start 10/30/16 at 19:30 Acetaminophen/ Hydrocodone Bitart (Lortab 5/325) 1 tab PRN Q4HRS PRN PO MILD PAIN Last administered on 10/31/16 04:45; Start 10/30/16 at 19:30 Acetaminophen (Tylenol) 650 mg PRN Q6HRS PRN PO MILD PAIN / TEMP; Start at 19:30; Status UNV Heparin Sodium (Porcine) 5,000 unit Q8HRS SQ ; Start 10/30/16 at 22:00 Acetaminophen (Tylenol) 650 mg PRN Q6HRS PRN PO FEVER; Start 10/30/16 at 19:45 Hydralazine HCl (Apresoline) 10 mg PRN Q5MIN PRN IVP ELEVATED BP, SEE COMMENTS ; Start 10/30/16 at 19:45 Pantoprazole Sodium (Protonix) 40 mg DAILYAC PO Last administered on 10/31/16t 08:44; Start 10/31/16 at 07:30 Ferrous Sulfate 300 mg BIDWMEALS PO ; Start 10/31/16 at 10:00 Polyethylene Glycol (miraLAX PACKET) 17 gm DAILY PO ; Start 10/31/16 at 12:00 Active Scripts Active Alprazolam 0.5 Mg Tablet 0.5 Mg PO Q8HRS PRN Oxycodone Hcl 10 Mg Tablet 1 Tab PO PRN BID PRN Olanzapine Odt (Olanzapine) 10 Mg Tab.rapdis 10 Mg PO QHS Lamotrigine 25 Mg Tablet 25 Mg PO DAILY 30 Days Zoloft (Sertraline Hcl) 100 Mg Tablet 200 Mg PO DAILY Risperidone 4 Mg Tablet 4 Mg PO DAILY Zofran Odt (Ondansetron) 4 Mg Tab.rapdis 1 Tab SL Q8HRS Reported NICODERM CQ 21mg (Nicotine) 1 Each Patch.td24 1 Patch TP DAILY Depakote (Divalproex Sodium) 250 Mg Tablet.dr 250 Mg PO TID Amlodipine Besylate 10 Mg Tablet 10 Mg PO DAILY Hydralazine Hcl 50 Mg Tablet 50 Mg PO QID Renagel (Sevelamer Hcl) 800 Mg Tablet 800 Mg PO TIDWMEALS Simvastatin 40 Mg Tablet 40 Mg PO HS Levothyroxine Sodium 125 Mcg Tablet 125 Mcg PO DAILYAC Gabapentin 300 Mg Capsule 300 Mg PO DAILY Phoslo (Calcium Acetate) 667 Mg Capsule 667 Mg PO TIDWMEALS Carvedilol 12.5 Mg Tablet 12.5 Mg PO BIDWMEALS Allergies Allergies: Coded Allergies: tramadol (Verified Adverse Reaction, Intermediate, VOMITING, 04/05/16) ROS Review of System GEN: non Fevers no Chills EYES: no Visual Complaints ENT: no EN Drainage no Hearing deficiets CVS: no Orthopnea no CP RESP: no SOB no SAMPSON GI: no Nausea no Vomiting + Constipation + abd discomfort : no Dysuria no Urgency HEME: no easy bruising no Palp Ly Nodes NEURO no Focal Weakness no Sz + BOWIE PSYCH: no Suicidal Ideation + Depression SKIN: no Rashes ENDO: no Polyuria or Polydipsia no Hot/Cold Intolerance MU SK: no Arthraigia no Myalgia Physical Exam Physical Exam General Appearance: Awake Alert Oriented x 2 In no Distress Eyes: VIsion Unchanged Conjunctiva Normal EN: No EN Drainage Mucous Memb. moist Neck: no JVD no JVP Supple no Thyromegaly CVS: S1 S2 soft Murmur No Gallop No Rub no Edema Resp: no Rales no Rhonchi no Acc. Muscle use GI: BAS +ve NO Bruit Non Tender Non Distended : no CVA tenderness; no Suprapubic Tenderness SKIN: no Rashes Breast Exam deferred Mu.Sk: Adequate ROM no Muscle Atrophy Heme: Unable to palpate Obvious LAD no palp Splenomegaly NEURO: Good Strength and Tone Cranial Nerves II - XII grossly intact Psych: + Depressed no Active hallucination Vital Signs Vital Signs Date Time Temp Pulse Resp B/P Pulse Ox O2 Delivery O2 Flow Rate FiO2 10/31/16 09:32 Room Air 10/31/16 08:45 65 137/81 10/31/16 07:00 98.1 17 97 98.1 Assessment & Plan ESRD: Dialysis as below F 180 NR 3.5 Hrs 2 K 2.5 Ca 140 Na 35 HC03 Qb 350 + Qd 500+ Heparin 0 Units Uf to dry weight as tolerated May give 25-50 gms of 25% Albumin if needed to maintain Hemodynamic stability Treatment plan reviewed and discussed with inspector clip on sunglasses ^K - HD today Constipation - Miralax Anemia: Epogen as ordered, Appears Fe Def too so will be loaded. I believe she rarely goes to OP HD and so probably does not get much EPO or IV Fe . HTN: Current BP meds reviewed. See orders for changes. ^Phos - Ct Current binder regimne and alter dose based on trend an PO intake SW to help with Placement. Labs Labs Laboratory Tests Test 10/30/16 16:10 10/30/16 16:25 10/30/16 17:20 10/30/16 21:20 White Blood Count 5.7x10^3/uL (4.0-11.0) Red Blood Count 2.61x10^6/uL (3.50-5.40) Hemoglobin 7.4g/dL (12.0-15.5) Hematocrit 22.7% (36.0-47.0) Mean Corpuscular Volume 87fL (79-100) Mean Corpuscular Hemoglobin 28pg (25-35) Mean Corpuscular Hemoglobin Concent 33g/dL (31-37) Red Cell Distribution Width 16.6% (11.5-14.5) Platelet Count 136x10^3/uL (140-400) Neutrophils (%) (Auto) 65% (31-73) Lymphocytes (%) (Auto) 18% (24-48) Monocytes (%) (Auto) 14% (0-9) Eosinophils (%) (Auto) 2% (0-3) Basophils (%) (Auto) 1% (0-3) Neutrophils # (Auto) 3.7x10^3uL (1.8-7.7) Lymphocytes # (Auto) 1.0x10^3/uL (1.0-4.8) Monocytes # (Auto) 0.8x10^3/uL (0.0-1.1) Eosinophils # (Auto) 0.1x10^3/uL (0.0-0.7) Basophils # (Auto) 0.0x10^3/uL (0.0-0.2) Sodium Level 141mmol/L (136-145) Potassium Level 5.1mmol/L (3.5-5.1) Chloride Level 102mmol/L (98-107) Carbon Dioxide Level 24mmol/L (21-32) Anion Gap 15 (6-14) Blood Urea Nitrogen 74mg/dL (7-20) Creatinine 9.7mg/dL (0.6-1.0) Estimated GFR (Cockcroft-Gault) 5.1 Glucose Level 90mg/dL (70-99) Lactic Acid Level 0.4mmol/L (0.4-2.0) Calcium Level 8.6mg/dL (8.5-10.1) Total Bilirubin 0.5mg/dL (0.2-1.0) Direct Bilirubin 0.2mg/dL (0.0-0.2) Aspartate Amino Transf (AST/SGOT) 37U/L (15-37) Alanine Aminotransferase (ALT/SGPT) 25U/L (14-59) Alkaline Phosphatase 111U/L (46-116) Troponin I Quantitative 0.371ng/mL (0.000-0.055) TT-Ywg-[id number]-Type Natriuretic Peptide > 09744nd/mL (0-124) Total Protein 6.8g/dL (6.4-8.2) Albumin 3.0g/dL (3.4-5.0) Lipase 151U/L (73-393) Bedside Urine HCG, Qualitative Hcg negative (Negative) Urine Collection Type Unknown Urine Color Yellow Urine Clarity Cloudy Urine pH 8.0 Urine Specific [place] 1.015 Urine Protein >=300mg/dL (NEG-TRACE) Urine Glucose (UA) 100mg/dL (NEG) Urine Ketones (Stick) Negativemg/dL (NEG) Urine Blood Small (NEG) Urine Nitrite Negative (NEG) Urine Bilirubin Negative (NEG) Urine Urobilinogen Dipstick 0.2mg/dL (0.2 mg/dL) Urine Leukocyte Esterase Negative (NEG) Urine RBC Occ/HPF (0-2) Urine WBC 1-4/HPF (0-4) Urine Squamous Epithelial Cells Many/LPF Urine Bacteria Moderate/HPF (0-FEW) Urine Yeast Present/HPF Glucose (Fingerstick) 186mg/dL (70-99) Test 10/31/16 03:35 10/31/16 07:51 White Blood Count 5.3x10^3/uL (4.0-11.0) Red Blood Count 2.48x10^6/uL (3.50-5.40) Hemoglobin 7.1g/dL (12.0-15.5) Hematocrit 21.7% (36.0-47.0) Mean Corpuscular Volume 88fL (79-100) Mean Corpuscular Hemoglobin 29pg (25-35) Mean Corpuscular Hemoglobin Concent 33g/dL (31-37) Red Cell Distribution Width 16.7% (11.5-14.5) Platelet Count 127x10^3/uL (140-400) Neutrophils (%) (Auto) 59% (31-73) Lymphocytes (%) (Auto) 25% (24-48) Monocytes (%) (Auto) 14% (0-9) Eosinophils (%) (Auto) 2% (0-3) Basophils (%) (Auto) 1% (0-3) Neutrophils # (Auto) 3.1x10^3uL (1.8-7.7) Lymphocytes # (Auto) 1.3x10^3/uL (1.0-4.8) Monocytes # (Auto) 0.8x10^3/uL (0.0-1.1) Eosinophils # (Auto) 0.1x10^3/uL (0.0-0.7) Basophils # (Auto) 0.0x10^3/uL (0.0-0.2) Sodium Level 140mmol/L (136-145) Potassium Level 5.2mmol/L (3.5-5.1) Chloride Level 101mmol/L (98-107) Carbon Dioxide Level 24mmol/L (21-32) Anion Gap 15 (6-14) Blood Urea Nitrogen 86mg/dL (7-20) Creatinine 10.8mg/dL (0.6-1.0) Estimated GFR (Cockcroft-Gault) 4.5 Glucose Level 170mg/dL (70-99) Calcium Level 8.4mg/dL (8.5-10.1) Phosphorus Level 7.2mg/dL (2.6-4.7) Iron Level 38ug/dL (50-170) Total Iron Binding Capacity 323ug/dL (250-450) Iron Saturation 12% (15-34) Ferritin 91ng/mL (8-252) Albumin 2.7g/dL (3.4-5.0) Glucose (Fingerstick) 142mg/dL (70-99) Laboratory Tests Test 10/30/16 16:10 10/30/16 16:25 10/30/16 17:20 10/30/16 21:20 White Blood Count 5.7x10^3/uL (4.0-11.0) Red Blood Count 2.61x10^6/uL (3.50-5.40) Hemoglobin 7.4g/dL (12.0-15.5) Hematocrit 22.7% (36.0-47.0) Mean Corpuscular Volume 87fL (79-100) Mean Corpuscular Hemoglobin 28pg (25-35) Mean Corpuscular Hemoglobin Concent 33g/dL (31-37) Red Cell Distribution Width 16.6% (11.5-14.5) Platelet Count 136x10^3/uL (140-400) Neutrophils (%) (Auto) 65% (31-73) Lymphocytes (%) (Auto) 18% (24-48) Monocytes (%) (Auto) 14% (0-9) Eosinophils (%) (Auto) 2% (0-3) Basophils (%) (Auto) 1% (0-3) Neutrophils # (Auto) 3.7x10^3uL (1.8-7.7) Lymphocytes # (Auto) 1.0x10^3/uL (1.0-4.8) Monocytes # (Auto) 0.8x10^3/uL (0.0-1.1) Eosinophils # (Auto) 0.1x10^3/uL (0.0-0.7) Basophils # (Auto) 0.0x10^3/uL (0.0-0.2) Sodium Level 141mmol/L (136-145) Potassium Level 5.1mmol/L (3.5-5.1) Chloride Level 102mmol/L (98-107) Carbon Dioxide Level 24mmol/L (21-32) Anion Gap 15 (6-14) Blood Urea Nitrogen 74mg/dL (7-20) Creatinine 9.7mg/dL (0.6-1.0) Estimated GFR (Cockcroft-Gault) 5.1 Glucose Level 90mg/dL (70-99) Lactic Acid Level 0.4mmol/L (0.4-2.0) Calcium Level 8.6mg/dL (8.5-10.1) Total Bilirubin 0.5mg/dL (0.2-1.0) Direct Bilirubin 0.2mg/dL (0.0-0.2) Aspartate Amino Transf (AST/SGOT) 37U/L (15-37) Alanine Aminotransferase (ALT/SGPT) 25U/L (14-59) Alkaline Phosphatase 111U/L (46-116) Troponin I Quantitative 0.371ng/mL (0.000-0.055) NR-Ajs-O-Type Natriuretic Peptide > 60775mh/mL (0-124) Total Protein 6.8g/dL (6.4-8.2) Albumin 3.0g/dL (3.4-5.0) Lipase 151U/L (73-393) Bedside Urine HCG, Qualitative Hcg negative (Negative) Urine Collection Type Unknown Urine Color Yellow Urine Clarity Cloudy Urine pH 8.0 Urine Specific [place] 1.015 Urine Protein >=300mg/dL (NEG-TRACE) Urine Glucose (UA) 100mg/dL (NEG) Urine Ketones (Stick) Negativemg/dL (NEG) Urine Blood Small (NEG) Urine Nitrite Negative (NEG) Urine Bilirubin Negative (NEG) Urine Urobilinogen Dipstick 0.2mg/dL (0.2 mg/dL) Urine Leukocyte Esterase Negative (NEG) Urine RBC Occ/HPF (0-2) Urine WBC 1-4/HPF (0-4) Urine Squamous Epithelial Cells Many/LPF Urine Bacteria Moderate/HPF (0-FEW) Urine Yeast Present/HPF Glucose (Fingerstick) 186mg/dL (70-99) Test 10/31/16 03:35 10/31/16 07:51 White Blood Count 5.3x10^3/uL (4.0-11.0) Red Blood Count 2.48x10^6/uL (3.50-5.40) Hemoglobin 7.1g/dL (12.0-15.5) Hematocrit 21.7% (36.0-47.0) Mean Corpuscular Volume 88fL (79-100) Mean Corpuscular Hemoglobin 29pg (25-35) Mean Corpuscular Hemoglobin Concent 33g/dL (31-37) Red Cell Distribution Width 16.7% (11.5-14.5) Platelet Count 127x10^3/uL (140-400) Neutrophils (%) (Auto) 59% (31-73) Lymphocytes (%) (Auto) 25% (24-48) Monocytes (%) (Auto) 14% (0-9) Eosinophils (%) (Auto) 2% (0-3) Basophils (%) (Auto) 1% (0-3) Neutrophils # (Auto) 3.1x10^3uL (1.8-7.7) Lymphocytes # (Auto) 1.3x10^3/uL (1.0-4.8) Monocytes # (Auto) 0.8x10^3/uL (0.0-1.1) Eosinophils # (Auto) 0.1x10^3/uL (0.0-0.7) Basophils # (Auto) 0.0x10^3/uL (0.0-0.2) Sodium Level 140mmol/L (136-145) Potassium Level 5.2mmol/L (3.5-5.1) Chloride Level 101mmol/L (98-107) Carbon Dioxide Level 24mmol/L (21-32) Anion Gap 15 (6-14) Blood Urea Nitrogen 86mg/dL (7-20) Creatinine 10.8mg/dL (0.6-1.0) Estimated GFR (Cockcroft-Gault) 4.5 Glucose Level 170mg/dL (70-99) Calcium Level 8.4mg/dL (8.5-10.1) Phosphorus Level 7.2mg/dL (2.6-4.7) Iron Level 38ug/dL (50-170) Total Iron Binding Capacity 323ug/dL (250-450) Iron Saturation 12% (15-34) Ferritin 91ng/mL (8-252) Albumin 2.7g/dL (3.4-5.0) Glucose (Fingerstick) 142mg/dL (70-99) Images Images The study is limited. No IV or gastrointestinal contrast was administered. No prior CT imaging of the abdomen or pelvis is available. There are pleural-parenchymal changes at the lung bases probably reflecting scar. There is diffuse soft tissue swelling suggesting a systemic process such as anasarca. There is some generalized cardiomegaly. A focal mass lesion is not seen in the liver or spleen. The pancreas is grossly normal. There is some soft tissue prominence surrounding the aorta. It is uncertain whether these represents unopacified bowel loops or adenopathy. Multiple surgical clips are seen in the retroperitoneum. [place] kidneys are very small. There is no suggested hydronephrosis. Acute finding in the abdomen is not seen. There is some diastases of the rectus muscles at the level of the umbilicus. Significant plaquing is noted associated with the abdominal aorta. There is a small to moderate amount of free fluid in the pelvis. No definite acute finding is not seen. IMPRESSION: Probable pleural-parenchymal scarring at the lung bases. [place] kidneys are very small. Clinical correlation advised. Retroperitoneal adenopathy versus unopacified bowel loops. Suggested anasarca. Moderate amount of free fluid in the pelvis. No definite acute finding seen in the abdomen or pelvis SHYANNE TYLER MD Oct 31, 2016 10:49
[2016-10-31] MEDS: POLYETHYLENE GLYCOL 3350 17 GM PACKET. PO SCH (10:50)
[2016-10-31] MEDS: FERROUS SULFATE ORAL 300 MG/5 ML SOLUTION. PO SCH ×2 (10:50→17:00)
[2016-10-31 11:20] LABS: VITAMIN-B12 690 pg/mL (247-911)
[2016-10-31 11:23] LABS: FOLATE > 20.00 ng/ml (3.2-20.0)
[2016-10-31] MEDS: CALCIUM ACETATE 667 MG CAPSULE PO SCH ×2 (12:09→17:00)
[2016-10-31 15:00] VITALS: BP 118/68
[2016-10-31] MEDS ORDERED: IV NORMAL SALINE 1000ML BAG 1,000 ML IV PRN ×2 (16:46)
[2016-10-31] MEDS ORDERED: ALBUMIN HUMAN 25% 200 ML IV PRN (17:00)
[2016-10-31] MEDS ORDERED: DIALYSIS PATIENT. MC PRN (17:00)
[2016-10-31] MEDS ORDERED: ACETAMINOPHEN 500 MG TABLET PO PRN (17:00)
[2016-10-31] MEDS ORDERED: DIPHENHYDRAMINE 50 MG/ML VIAL IV PRN ×2 (17:00)
[2016-10-31] MEDS: ALPRAZOLAM 0.5 MG TABLET PO PRN (21:11)
[2016-10-31] MEDS: ATORVASTATIN CALCIUM 20 MG TABLET PO SCH (21:11)
[2016-10-31] MEDS: OLANZAPINE 5 MG TABLET. PO SCH (21:11)
--- NOTE | 2016-10-31 22:02 | PDOC ---
PROGRESS NOTES Chief Complaint Chief Complaint 1. abd pain, acute on chronic 2. ESRD on HD 3. Type 2 diabetes 4. High cholesterol 5. Hypertension 6. Hypothyroidism 7. Hepatitis C 8. h/o PCP Abuse 9. Chronic back and hip pain 10. acute on chronic anemia, with ESRD, recent GIB 11. NON compliance 12. H/O Schizophrenia, suicidal idea 13. Homelessness 14. constipation History of Present Illness History of Present Illness pt unable to DC due to arrival sched at homeless [facility]term and HD started at 1630 today Dc in AM Vitals Vitals Vital Signs Date Time Temp Pulse Resp B/P Pulse Ox O2 Delivery O2 Flow Rate FiO2 10/31/16 21:11 77 138/72 10/31/16 20:04 Room Air 10/31/16 19:26 97 10/31/16 15:00 98.1 18 98.1 Physical Exam General: Alert, Oriented X3, Cooperative Heart: Regular rate Lungs: Clear Abdomen: Normal bowel sounds Extremities: No clubbing Skin: No significant lesion Labs LABS Laboratory Tests Test 10/31/16 03:35 10/31/16 03:55 10/31/16 04:50 10/31/16 07:51 White Blood Count 5.3x10^3/uL (4.0-11.0) Red Blood Count 2.48x10^6/uL (3.50-5.40) Hemoglobin 7.1g/dL (12.0-15.5) Hematocrit 21.7% (36.0-47.0) Mean Corpuscular Volume 88fL (79-100) Mean Corpuscular Hemoglobin 29pg (25-35) Mean Corpuscular Hemoglobin Concent 33g/dL (31-37) Red Cell Distribution Width 16.7% (11.5-14.5) Platelet Count 127x10^3/uL (140-400) Neutrophils (%) (Auto) 59% (31-73) Lymphocytes (%) (Auto) 25% (24-48) Monocytes (%) (Auto) 14% (0-9) Eosinophils (%) (Auto) 2% (0-3) Basophils (%) (Auto) 1% (0-3) Neutrophils # (Auto) 3.1x10^3uL (1.8-7.7) Lymphocytes # (Auto) 1.3x10^3/uL (1.0-4.8) Monocytes # (Auto) 0.8x10^3/uL (0.0-1.1) Eosinophils # (Auto) 0.1x10^3/uL (0.0-0.7) Basophils # (Auto) 0.0x10^3/uL (0.0-0.2) Sodium Level 140mmol/L (136-145) Potassium Level 5.2mmol/L (3.5-5.1) Chloride Level 101mmol/L (98-107) Carbon Dioxide Level 24mmol/L (21-32) Anion Gap 15 (6-14) Blood Urea Nitrogen 86mg/dL (7-20) Creatinine 10.8mg/dL (0.6-1.0) Estimated GFR (Cockcroft-Gault) 4.5 Glucose Level 170mg/dL (70-99) Calcium Level 8.4mg/dL (8.5-10.1) Phosphorus Level 7.2mg/dL (2.6-4.7) Iron Level 38ug/dL (50-170) Total Iron Binding Capacity 323ug/dL (250-450) Iron Saturation 12% (15-34) Ferritin 91ng/mL (8-252) Albumin 2.7g/dL (3.4-5.0) Vitamin B12 Level 690pg/mL (247-911) Serum Folate > 20.00ng/ml (3.2-20.0) Nasal Screen MRSA (PCR) Negative (Negative) Glucose (Fingerstick) 142mg/dL (70-99) Test 10/31/16 10:38 Glucose (Fingerstick) 166mg/dL (70-99) Assessment and Plan Assessmemt and Plan Problems Medical Problems: (1) Abdominal pain Status: Acute (2) ESRD (end stage renal disease) Status: Acute Problems: Comment Review of Relevant I have reviewed the following items hemal (where applicable) has been applied. Labs Laboratory Tests Test 10/30/16 16:10 10/30/16 16:25 10/30/16 17:20 10/30/16 21:20 White Blood Count 5.7x10^3/uL (4.0-11.0) Red Blood Count 2.61x10^6/uL (3.50-5.40) Hemoglobin 7.4g/dL (12.0-15.5) Hematocrit 22.7% (36.0-47.0) Mean Corpuscular Volume 87fL (79-100) Mean Corpuscular Hemoglobin 28pg (25-35) Mean Corpuscular Hemoglobin Concent 33g/dL (31-37) Red Cell Distribution Width 16.6% (11.5-14.5) Platelet Count 136x10^3/uL (140-400) Neutrophils (%) (Auto) 65% (31-73) Lymphocytes (%) (Auto) 18% (24-48) Monocytes (%) (Auto) 14% (0-9) Eosinophils (%) (Auto) 2% (0-3) Basophils (%) (Auto) 1% (0-3) Neutrophils # (Auto) 3.7x10^3uL (1.8-7.7) Lymphocytes # (Auto) 1.0x10^3/uL (1.0-4.8) Monocytes # (Auto) 0.8x10^3/uL (0.0-1.1) Eosinophils # (Auto) 0.1x10^3/uL (0.0-0.7) Basophils # (Auto) 0.0x10^3/uL (0.0-0.2) Sodium Level 141mmol/L (136-145) Potassium Level 5.1mmol/L (3.5-5.1) Chloride Level 102mmol/L (98-107) Carbon Dioxide Level 24mmol/L (21-32) Anion Gap 15 (6-14) Blood Urea Nitrogen 74mg/dL (7-20) Creatinine 9.7mg/dL (0.6-1.0) Estimated GFR (Cockcroft-Gault) 5.1 Glucose Level 90mg/dL (70-99) Lactic Acid Level 0.4mmol/L (0.4-2.0) Calcium Level 8.6mg/dL (8.5-10.1) Total Bilirubin 0.5mg/dL (0.2-1.0) Direct Bilirubin 0.2mg/dL (0.0-0.2) Aspartate Amino Transf (AST/SGOT) 37U/L (15-37) Alanine Aminotransferase (ALT/SGPT) 25U/L (14-59) Alkaline Phosphatase 111U/L (46-116) Troponin I Quantitative 0.371ng/mL (0.000-0.055) ZH-Wcw-T-Type Natriuretic Peptide > 01896ps/mL (0-124) Total Protein 6.8g/dL (6.4-8.2) Albumin 3.0g/dL (3.4-5.0) Lipase 151U/L (73-393) Bedside Urine HCG, Qualitative Hcg negative (Negative) Urine Collection Type Unknown Urine Color Yellow Urine Clarity Cloudy Urine pH 8.0 Urine Specific [place] 1.015 Urine Protein >=300mg/dL (NEG-TRACE) Urine Glucose (UA) 100mg/dL (NEG) Urine Ketones (Stick) Negativemg/dL (NEG) Urine Blood Small (NEG) Urine Nitrite Negative (NEG) Urine Bilirubin Negative (NEG) Urine Urobilinogen Dipstick 0.2mg/dL (0.2 mg/dL) Urine Leukocyte Esterase Negative (NEG) Urine RBC Occ/HPF (0-2) Urine WBC 1-4/HPF (0-4) Urine Squamous Epithelial Cells Many/LPF Urine Bacteria Moderate/HPF (0-FEW) Urine Yeast Present/HPF Glucose (Fingerstick) 186mg/dL (70-99) Test 10/31/16 03:35 10/31/16 03:55 10/31/16 04:50 10/31/16 07:51 White Blood Count 5.3x10^3/uL (4.0-11.0) Red Blood Count 2.48x10^6/uL (3.50-5.40) Hemoglobin 7.1g/dL (12.0-15.5) Hematocrit 21.7% (36.0-47.0) Mean Corpuscular Volume 88fL (79-100) Mean Corpuscular Hemoglobin 29pg (25-35) Mean Corpuscular Hemoglobin Concent 33g/dL (31-37) Red Cell Distribution Width 16.7% (11.5-14.5) Platelet Count 127x10^3/uL (140-400) Neutrophils (%) (Auto) 59% (31-73) Lymphocytes (%) (Auto) 25% (24-48) Monocytes (%) (Auto) 14% (0-9) Eosinophils (%) (Auto) 2% (0-3) Basophils (%) (Auto) 1% (0-3) Neutrophils # (Auto) 3.1x10^3uL (1.8-7.7) Lymphocytes # (Auto) 1.3x10^3/uL (1.0-4.8) Monocytes # (Auto) 0.8x10^3/uL (0.0-1.1) Eosinophils # (Auto) 0.1x10^3/uL (0.0-0.7) Basophils # (Auto) 0.0x10^3/uL (0.0-0.2) Sodium Level 140mmol/L (136-145) Potassium Level 5.2mmol/L (3.5-5.1) Chloride Level 101mmol/L (98-107) Carbon Dioxide Level 24mmol/L (21-32) Anion Gap 15 (6-14) Blood Urea Nitrogen 86mg/dL (7-20) Creatinine 10.8mg/dL (0.6-1.0) Estimated GFR (Cockcroft-Gault) 4.5 Glucose Level 170mg/dL (70-99) Calcium Level 8.4mg/dL (8.5-10.1) Phosphorus Level 7.2mg/dL (2.6-4.7) Iron Level 38ug/dL (50-170) Total Iron Binding Capacity 323ug/dL (250-450) Iron Saturation 12% (15-34) Ferritin 91ng/mL (8-252) Albumin 2.7g/dL (3.4-5.0) Vitamin B12 Level 690pg/mL (247-911) Serum Folate > 20.00ng/ml (3.2-20.0) Nasal Screen MRSA (PCR) Negative (Negative) Glucose (Fingerstick) 142mg/dL (70-99) Test 10/31/16 10:38 Glucose (Fingerstick) 166mg/dL (70-99) Laboratory Tests Test 10/31/16 03:35 10/31/16 03:55 10/31/16 04:50 10/31/16 07:51 White Blood Count 5.3x10^3/uL (4.0-11.0) Red Blood Count 2.48x10^6/uL (3.50-5.40) Hemoglobin 7.1g/dL (12.0-15.5) Hematocrit 21.7% (36.0-47.0) Mean Corpuscular Volume 88fL (79-100) Mean Corpuscular Hemoglobin 29pg (25-35) Mean Corpuscular Hemoglobin Concent 33g/dL (31-37) Red Cell Distribution Width 16.7% (11.5-14.5) Platelet Count 127x10^3/uL (140-400) Neutrophils (%) (Auto) 59% (31-73) Lymphocytes (%) (Auto) 25% (24-48) Monocytes (%) (Auto) 14% (0-9) Eosinophils (%) (Auto) 2% (0-3) Basophils (%) (Auto) 1% (0-3) Neutrophils # (Auto) 3.1x10^3uL (1.8-7.7) Lymphocytes # (Auto) 1.3x10^3/uL (1.0-4.8) Monocytes # (Auto) 0.8x10^3/uL (0.0-1.1) Eosinophils # (Auto) 0.1x10^3/uL (0.0-0.7) Basophils # (Auto) 0.0x10^3/uL (0.0-0.2) Sodium Level 140mmol/L (136-145) Potassium Level 5.2mmol/L (3.5-5.1) Chloride Level 101mmol/L (98-107) Carbon Dioxide Level 24mmol/L (21-32) Anion Gap 15 (6-14) Blood Urea Nitrogen 86mg/dL (7-20) Creatinine 10.8mg/dL (0.6-1.0) Estimated GFR (Cockcroft-Gault) 4.5 Glucose Level 170mg/dL (70-99) Calcium Level 8.4mg/dL (8.5-10.1) Phosphorus Level 7.2mg/dL (2.6-4.7) Iron Level 38ug/dL (50-170) Total Iron Binding Capacity 323ug/dL (250-450) Iron Saturation 12% (15-34) Ferritin 91ng/mL (8-252) Albumin 2.7g/dL (3.4-5.0) Vitamin B12 Level 690pg/mL (247-911) Serum Folate > 20.00ng/ml (3.2-20.0) Nasal Screen MRSA (PCR) Negative (Negative) Glucose (Fingerstick) 142mg/dL (70-99) Test 10/31/16 10:38 Glucose (Fingerstick) 166mg/dL (70-99) Medications Current Medications Aspirin (Children'S Aspirin) 324 mg 1X ONCE PO Last administered on 10/30/16 17:05; Start 10/30/16 at 17:00; Stop 10/30/16 at 17:01; Status DC Alprazolam (Xanax) 0.5 mg PRN Q8HRS PRN PO ANXIETY / AGITATION Last administered on 10/31/16 21:11; Start 10/30/16 at 19:30 Amlodipine Besylate (Norvasc) 10 mg DAILY PO ; Start 10/31/16 at 09:00 Calcium Acetate (Phoslo) 667 mg TIDWMEALS PO Last administered on 10/31/16 08: 43; Start 10/31/16 at 08:00; Stop 10/31/16 at 10:52; Status DC Carvedilol (Coreg) 12.5 mg BIDWMEALS PO Last administered on 10/31/16 08:45; Start 10/31/16 at 08:00 Divalproex Sodium (Depakote) 250 mg TID PO Last administered on 10/31/16 21:11 ; Start 10/30/16 at 21:00 Gabapentin (Neurontin) 300 mg DAILY PO Last administered on 10/31/16 08:46; Start 10/31/16 at 09:00 Hydralazine HCl (Apresoline) 50 mg QID PO Last administered on 10/31/16 21:11 ; Start 10/30/16 at 21:00 Lamotrigine (LaMICtal) 25 mg DAILY PO Last administered on 10/31/16 08:44; Start 10/31/16 at 09:00 Levothyroxine Sodium (Synthroid) 125 mcg DAILY07 PO Last administered on 08:44; Start 10/31/16 at 07:00 Nicotine (Nicoderm Cq 21mg) 1 patch DAILY TD Last administered on 10/31/16 08: 46; Start 10/31/16 at 09:00 Atorvastatin Calcium (Lipitor) 20 mg QHS PO Last administered on 10/31/16 21: 11; Start 10/30/16 at 22:00 Olanzapine (Zyprexa) 10 mg QHS PO Last administered on 10/31/16 21:11; Start 10/30/16 at 21:30 Non-Formulary Medication 1 tab PRN BID PRN PO Severe pain; Start 10/30/16 at 19 :30; Stop 10/30/16 at 19:34; Status DC Risperidone (Risperdal) 4 mg DAILY PO Last administered on 10/31/16 08:44; Start 10/31/16 at 09:00 Sertraline HCl (Zoloft) 200 mg DAILY PO Last administered on 10/31/16 08:43; Start 10/31/16 at 09:00 Sevelamer Carbonate (Renvela) 800 mg TIDWMEALS PO Last administered on 12:09; Start 10/31/16 at 08:00 Ondansetron HCl (Zofran) 4 mg PRN Q6HRS PRN IV NAUSEA/VOMITING; Start 10/30/16 at 19:30 Acetaminophen/ Hydrocodone Bitart (Lortab 5/325) 1 tab PRN Q4HRS PRN PO MILD PAIN Last administered on 10/31/16 19:26; Start 10/30/16 at 19:30 Acetaminophen (Tylenol) 650 mg PRN Q6HRS PRN PO MILD PAIN / TEMP; Start at 19:30; Status UNV Heparin Sodium (Porcine) 5,000 unit Q8HRS SQ Last administered on 10/31/16 15: 32; Start 10/30/16 at 22:00 Acetaminophen (Tylenol) 650 mg PRN Q6HRS PRN PO FEVER; Start 10/30/16 at 19:45 Hydralazine HCl (Apresoline) 10 mg PRN Q5MIN PRN IVP ELEVATED BP, SEE COMMENTS ; Start 10/30/16 at 19:45 Pantoprazole Sodium (Protonix) 40 mg DAILYAC PO Last administered on 10/31/16 08:44; Start 10/31/16 at 07:30 Ferrous Sulfate 300 mg BIDWMEALS PO Last administered on 10/31/16 10:50; Start 10/31/16 at 10:00 Polyethylene Glycol 17 gm 17 gm DAILY PO Last administered on 10/31/16t 10:50; Start 10/31/16 at 12:00 Magnesium Sulfate/ Dextrose 50 ml @ 25 mls/hr PRN DAILY PRN IV for Mag < 1.7 on am labs; Start 10/31/16 at 10:45 Iron Sucrose/ Sodium Chloride (Venofer/Iv Sodium Chloride 0.9% 100ml) 110 ml @ 55 mls/hr 3X/WEEK IV ; Start 11/01/16 at 09:00; Stop 11/10/16 at 10:59 Polyethylene Glycol (miraLAX PACKET) 17 gm PRN DAILY PRN PO CONSTIPATION; Start 10/31/16 at 10:45 Calcium Acetate 2001 mg 2,001 mg TIDWMEALS PO Last administered on 10/31/16t 12 :09; Start 10/31/16 at 12:00 Sodium Chloride 1,000 ml @ 1,000 mls/hr Q1H PRN IV hypotension; Start 10/31/16 at 16:46; Stop 10/31/16 at 22:45 Albumin Human (Albuminar) 200 ml @ 200 mls/hr 1X PRN PRN IV Hypotension; Start 10/31/16 at 17:00; Stop 10/31/16 at 22:59 Acetaminophen (Tylenol) 500 mg 1X PRN PRN PO MILD PAIN / TEMP; Start 10/31/16 at 17:00; Stop 11/01/16 at 16:59 Diphenhydramine HCl (Benadryl) 25 mg 1X PRN PRN IV ITCHING; Start 10/31/16 at 17:00; Stop 11/01/16 at 16:59 Diphenhydramine HCl 25 mg 25 mg 1X PRN PRN IV ITCHING; Start 10/31/16 at 17:00 ; Stop 11/01/16 at 16:59 Sodium Chloride (Iv Sodium Chloride 0.9% 1000ml Bag) 1,000 ml @ 400 mls/hr Q2H30M PRN IV PATENCY; Start 10/31/16 at 16:46; Stop 11/01/16 at 04:45 Info (PHARMACY MONITORING -- do not chart) 1 each PRN DAILY PRN MC SEE COMMENTS ; Start 10/31/16 at 17:00 Active Scripts Active Alprazolam 0.5 Mg Tablet 0.5 Mg PO Q8HRS PRN Oxycodone Hcl 10 Mg Tablet 1 Tab PO PRN BID PRN Olanzapine Odt (Olanzapine) 10 Mg Tab.rapdis 10 Mg PO QHS Lamotrigine 25 Mg Tablet 25 Mg PO DAILY 30 Days Zoloft (Sertraline Hcl) 100 Mg Tablet 200 Mg PO DAILY Risperidone 4 Mg Tablet 4 Mg PO DAILY Zofran Odt (Ondansetron) 4 Mg Tab.rapdis 1 Tab SL Q8HRS Reported NICODERM CQ 21mg (Nicotine) 1 Each Patch.td24 1 Patch TP DAILY Depakote (Divalproex Sodium) 250 Mg Tablet.dr 250 Mg PO TID Amlodipine Besylate 10 Mg Tablet 10 Mg PO DAILY Hydralazine Hcl 50 Mg Tablet 50 Mg PO QID Renagel (Sevelamer Hcl) 800 Mg Tablet 800 Mg PO TIDWMEALS Simvastatin 40 Mg Tablet 40 Mg PO HS Levothyroxine Sodium 125 Mcg Tablet 125 Mcg PO DAILYAC Gabapentin 300 Mg Capsule 300 Mg PO DAILY Phoslo (Calcium Acetate) 667 Mg Capsule 667 Mg PO TIDWMEALS Carvedilol 12.5 Mg Tablet 12.5 Mg PO BIDWMEALS Vitals/I & O Vital Sign - Last 24 Hours 10/30/16 10/30/16 10/31/16 10/31/16 22:07 23:00 00:13 03:00 Temp 98.0 98.2 98.0 98.2 Pulse 73 69 71 Resp 20 18 B/P 142/76 147/65 133/70 Pulse Ox 94 98 96 O2 Delivery Room Air 10/31/16 10/31/16 10/31/16 10/31/16 04:45 05:45 07:00 08:00 Temp 98.1 98.1 Pulse 65 Resp 20 20 17 B/P 137/81 Pulse Ox 98 98 97 O2 Delivery Room Air Room Air Room Air 10/31/16 10/31/16 10/31/16 10/31/16 08:45 09:32 10:42 10:50 Temp 98.0 98.0 Pulse 65 61 Resp 14 B/P 137/81 123/71 O2 Delivery Room Air Room Air Room Air 10/31/16 10/31/16 10/31/16 10/31/16 12:00 15:00 19:26 20:04 Temp 98.1 98.1 Pulse 62 Resp 18 B/P 118/68 Pulse Ox 97 97 O2 Delivery Room Air Room Air Room Air Room Air 10/31/16 21:11 Pulse 77 B/P 138/72 Intake and Output 10/30/16 10/30/16 10/31/16 15:00 23:00 07:00 Intake Total 180 ml Balance 180 ml BRAYAN TAYLOR MD Oct 31, 2016 22:02
--- NOTE | 2016-10-31 22:51 | CONS ---
DATE OF CONSULTATION: PRIMARY PHYSICIAN: Dr. Larose REASON FOR CONSULTATION: ESRD dialysis, missed dialysis. HISTORY OF PRESENT ILLNESS: The patient is a 56-year-old -Citizen Of [place] female who is noted to be homeless by her own admission. She also often has transportation issues to get back and forth to dialysis due to the same. As a result of this, she missed her dialysis on Sunday. She presented to the ER with complaints of abdominal pain. She did undergo a CT which is nonrevealing for any obvious problems other than some free pelvic fluid. She has been evaluated by GI. Also, she does have issues with constipation by her own admission. In the setting her potassium was noted to be 5.2 today and we were asked to see her for dialysis needs. She usually dialyzes Sunday, and Saturdays at [facility] under the care of ____/Dr. Elizondo. For rest of the details, please see electronic renal consult note. SHYANNE TYLER MD DR: JUDE/mic JOB#: [id number] / [id number]
[2016-10-31 23:23] VITALS: BP 138/72
[2016-11-01] VITALS (11 sets, daily range): BP systolic 119–151; BP diastolic 60–76
[2016-11-01 05:49] LABS: ALBUMIN 2.6 g/dL (3.4-5.0); CALCIUM 8.3 mg/dL (8.5-10.1); CREATININE 6.3 mg/dL (0.6-1.0); GFR 8.4; PHOSPHORUS 4.6 mg/dL (2.6-4.7); POTASSIUM 4.3 mmol/L (3.5-5.1)
[2016-11-01] MEDS: LEVOTHYROXINE 125 MCG TABLET PO SCH (05:55)
[2016-11-01] MEDS: HEPARIN PF for SUB-Q USE 5,000 UNIT/0.5 ML VIAL. SQ SCH ×3 (05:55→21:52)
[2016-11-01] MEDS: ALPRAZOLAM 0.5 MG TABLET PO PRN ×2 (06:00→21:50)
[2016-11-01] MEDS: HYDROCODONE/APAP 5/325MG TABLET. PO PRN ×4 (06:01→21:50)
[2016-11-01] MEDS: POLYETHYLENE GLYCOL 3350 17 GM PACKET. PO SCH (08:19)
[2016-11-01] MEDS: FERROUS SULFATE ORAL 300 MG/5 ML SOLUTION. PO SCH ×2 (08:20→17:44)
[2016-11-01] MEDS: SERTRALINE 50 MG TABLET. PO SCH (08:20)
[2016-11-01] MEDS: GABAPENTIN 300 MG CAPSULE. PO SCH (08:20)
[2016-11-01] MEDS: NICOTINE 21MG PATCH. TD SCH (08:20)
[2016-11-01] MEDS: risperiDONE 1 MG TABLET. PO SCH (08:20)
[2016-11-01] MEDS: SEVELAMER CARBONATE 800 MG TABLET. PO SCH ×3 (08:20→17:42)
[2016-11-01] MEDS: DIVALPROEX DELAYED RELEASE 250 MG TABLET.DR. PO SCH ×3 (08:21→21:49)
[2016-11-01] MEDS: AMLODIPINE BESYLATE 10 MG TABLET PO SCH (08:21)
[2016-11-01] MEDS: lamoTRIgine 25 MG TABLET. PO SCH (08:21)
[2016-11-01] MEDS: PANTOPRAZOLE 40 MG TABLET. PO SCH (08:21)
[2016-11-01] MEDS: CALCIUM ACETATE 667 MG CAPSULE PO SCH ×3 (08:21→17:42)
[2016-11-01] MEDS: DOCUSATE SODIUM 100 MG CAPSULE PO SCH (08:21)
[2016-11-01] MEDS: CARVEDILOL 12.5 MG TABLET PO SCH ×2 (08:21→17:42)
[2016-11-01] MEDS: HYDRALAZINE 50 MG TABLET PO SCH ×4 (08:22→21:50)
[2016-11-01] MEDS: IRON SUCROSE COMPLEX 200 MG in IV NORMAL SALINE 100ML 100 ML IV SCH (10:14)
--- NOTE | 2016-11-01 10:31 | PDOC ---
Objective: Objective: Per RN - possible DC today after receives iron infusion. Vital Signs: Vital Signs Date Time Temp Pulse Resp B/P Pulse Ox O2 Delivery O2 Flow Rate FiO2 11/01/16 10:13 Room Air 11/01/16 08:22 82 151/74 11/01/16 07:01 96 11/01/16 07:00 97.6 16 97.6 Labs: Laboratory Tests Test 10/31/16 10:38 11/01/16 04:49 Glucose (Fingerstick) 166mg/dL Hemoglobin 6.8g/dL Sodium Level 143mmol/L Potassium Level 4.3mmol/L Chloride Level 102mmol/L Carbon Dioxide Level 30mmol/L Anion Gap 11 Blood Urea Nitrogen 43mg/dL Creatinine 6.3mg/dL Estimated GFR (Cockcroft-Gault) 8.4 Glucose Level 179mg/dL Calcium Level 8.3mg/dL Phosphorus Level 4.6mg/dL Magnesium Level 1.8mg/dL Albumin 2.6g/dL PE: GEN: NAD, sitting on edge of bed LUNGS: CTAB HEART: RRR ABD: S/ND/NT NEURO/PSYCH: A & O 3 A/P: HAYES -Hgb down a bit today, to receive IV iron -can document colonoscopy 2007 w/ internal hemorrhoids -ESRD on HD GERD, h/o PUD, h/o duodenal angioma -s/p cautery/EGD last week @ [facility] -on PPI, no NSAIDs Hep C -no treatment -- Continue PPI and iron indefinitely. ARNAUD KITCHEN Nov 01, 2016 10:31
[2016-11-01] MEDS ORDERED: FENTANYL PF 100 MCG/2 ML VIAL. IV ONE (11:15)
[2016-11-01] MEDS ORDERED: OXYC-323 PO (14:03)
--- NOTE | 2016-11-01 14:03 | PDOC ---
PROGRESS NOTES Chief Complaint Chief Complaint 1. abd pain, acute on chronic 2. ESRD on HD 3. Type 2 diabetes 4. High cholesterol 5. Hypertension 6. Hypothyroidism 7. Hepatitis C 8. h/o PCP Abuse 9. Chronic back and hip pain 10. acute on chronic anemia, with ESRD, recent GIB 11. NON compliance 12. H/O Schizophrenia, suicidal idea 13. Homelessness 14. constipation History of Present Illness History of Present Illness 1b u PRBC try to DC after pain present but stable no change Vitals Vitals Vital Signs Date Time Temp Pulse Resp B/P Pulse Ox O2 Delivery O2 Flow Rate FiO2 11/01/16 13:45 98.3 70 13 121/60 98.3 11/01/16 12:47 Room Air 11/01/16 11:00 98 Physical Exam General: Alert, Oriented X3, Cooperative Heart: Regular rate Lungs: Clear Abdomen: Normal bowel sounds Extremities: No clubbing Skin: No rashes, No significant lesion Labs LABS Laboratory Tests Test 11/01/16 04:49 Hemoglobin 6.8g/dL (12.0-15.5) Sodium Level 143mmol/L (136-145) Potassium Level 4.3mmol/L (3.5-5.1) Chloride Level 102mmol/L (98-107) Carbon Dioxide Level 30mmol/L (21-32) Anion Gap 11 (6-14) Blood Urea Nitrogen 43mg/dL (7-20) Creatinine 6.3mg/dL (0.6-1.0) Estimated GFR (Cockcroft-Gault) 8.4 Glucose Level 179mg/dL (70-99) Calcium Level 8.3mg/dL (8.5-10.1) Phosphorus Level 4.6mg/dL (2.6-4.7) Magnesium Level 1.8mg/dL (1.8-2.4) Albumin 2.6g/dL (3.4-5.0) Review of Systems Review of Systems no .v.d Assessment and Plan Assessmemt and Plan Problems Medical Problems: (1) Abdominal pain Status: Acute (2) ESRD (end stage renal disease) Status: Acute Problems: Comment Review of Relevant I have reviewed the following items heaml (where applicable) has been applied. Labs Laboratory Tests Test 10/30/16 16:10 10/30/16 16:25 10/30/16 17:20 10/30/16 21:20 White Blood Count 5.7x10^3/uL (4.0-11.0) Red Blood Count 2.61x10^6/uL (3.50-5.40) Hemoglobin 7.4g/dL (12.0-15.5) Hematocrit 22.7% (36.0-47.0) Mean Corpuscular Volume 87fL (79-100) Mean Corpuscular Hemoglobin 28pg (25-35) Mean Corpuscular Hemoglobin Concent 33g/dL (31-37) Red Cell Distribution Width 16.6% (11.5-14.5) Platelet Count 136x10^3/uL (140-400) Neutrophils (%) (Auto) 65% (31-73) Lymphocytes (%) (Auto) 18% (24-48) Monocytes (%) (Auto) 14% (0-9) Eosinophils (%) (Auto) 2% (0-3) Basophils (%) (Auto) 1% (0-3) Neutrophils # (Auto) 3.7x10^3uL (1.8-7.7) Lymphocytes # (Auto) 1.0x10^3/uL (1.0-4.8) Monocytes # (Auto) 0.8x10^3/uL (0.0-1.1) Eosinophils # (Auto) 0.1x10^3/uL (0.0-0.7) Basophils # (Auto) 0.0x10^3/uL (0.0-0.2) Sodium Level 141mmol/L (136-145) Potassium Level 5.1mmol/L (3.5-5.1) Chloride Level 102mmol/L (98-107) Carbon Dioxide Level 24mmol/L (21-32) Anion Gap 15 (6-14) Blood Urea Nitrogen 74mg/dL (7-20) Creatinine 9.7mg/dL (0.6-1.0) Estimated GFR (Cockcroft-Gault) 5.1 Glucose Level 90mg/dL (70-99) Lactic Acid Level 0.4mmol/L (0.4-2.0) Calcium Level 8.6mg/dL (8.5-10.1) Total Bilirubin 0.5mg/dL (0.2-1.0) Direct Bilirubin 0.2mg/dL (0.0-0.2) Aspartate Amino Transf (AST/SGOT) 37U/L (15-37) Alanine Aminotransferase (ALT/SGPT) 25U/L (14-59) Alkaline Phosphatase 111U/L (46-116) Troponin I Quantitative 0.371ng/mL (0.000-0.055) LB-Nzn-X-Type Natriuretic Peptide > 69924gq/mL (0-124) Total Protein 6.8g/dL (6.4-8.2) Albumin 3.0g/dL (3.4-5.0) Lipase 151U/L (73-393) Bedside Urine HCG, Qualitative Hcg negative (Negative) Urine Collection Type Unknown Urine Color Yellow Urine Clarity Cloudy Urine pH 8.0 Urine Specific [place] 1.015 Urine Protein >=300mg/dL (NEG-TRACE) Urine Glucose (UA) 100mg/dL (NEG) Urine Ketones (Stick) Negativemg/dL (NEG) Urine Blood Small (NEG) Urine Nitrite Negative (NEG) Urine Bilirubin Negative (NEG) Urine Urobilinogen Dipstick 0.2mg/dL (0.2 mg/dL) Urine Leukocyte Esterase Negative (NEG) Urine RBC Occ/HPF (0-2) Urine WBC 1-4/HPF (0-4) Urine Squamous Epithelial Cells Many/LPF Urine Bacteria Moderate/HPF (0-FEW) Urine Yeast Present/HPF Glucose (Fingerstick) 186mg/dL (70-99) Test 10/31/16 03:35 10/31/16 03:55 10/31/16 04:50 10/31/16 07:51 White Blood Count 5.3x10^3/uL (4.0-11.0) Red Blood Count 2.48x10^6/uL (3.50-5.40) Hemoglobin 7.1g/dL (12.0-15.5) Hematocrit 21.7% (36.0-47.0) Mean Corpuscular Volume 88fL (79-100) Mean Corpuscular Hemoglobin 29pg (25-35) Mean Corpuscular Hemoglobin Concent 33g/dL (31-37) Red Cell Distribution Width 16.7% (11.5-14.5) Platelet Count 127x10^3/uL (140-400) Neutrophils (%) (Auto) 59% (31-73) Lymphocytes (%) (Auto) 25% (24-48) Monocytes (%) (Auto) 14% (0-9) Eosinophils (%) (Auto) 2% (0-3) Basophils (%) (Auto) 1% (0-3) Neutrophils # (Auto) 3.1x10^3uL (1.8-7.7) Lymphocytes # (Auto) 1.3x10^3/uL (1.0-4.8) Monocytes # (Auto) 0.8x10^3/uL (0.0-1.1) Eosinophils # (Auto) 0.1x10^3/uL (0.0-0.7) Basophils # (Auto) 0.0x10^3/uL (0.0-0.2) Sodium Level 140mmol/L (136-145) Potassium Level 5.2mmol/L (3.5-5.1) Chloride Level 101mmol/L (98-107) Carbon Dioxide Level 24mmol/L (21-32) Anion Gap 15 (6-14) Blood Urea Nitrogen 86mg/dL (7-20) Creatinine 10.8mg/dL (0.6-1.0) Estimated GFR (Cockcroft-Gault) 4.5 Glucose Level 170mg/dL (70-99) Calcium Level 8.4mg/dL (8.5-10.1) Phosphorus Level 7.2mg/dL (2.6-4.7) Iron Level 38ug/dL (50-170) Total Iron Binding Capacity 323ug/dL (250-450) Iron Saturation 12% (15-34) Ferritin 91ng/mL (8-252) Albumin 2.7g/dL (3.4-5.0) Vitamin B12 Level 690pg/mL (247-911) Serum Folate > 20.00ng/ml (3.2-20.0) Nasal Screen MRSA (PCR) Negative (Negative) Glucose (Fingerstick) 142mg/dL (70-99) Test 10/31/16 10:38 11/01/16 04:49 Glucose (Fingerstick) 166mg/dL (70-99) Hemoglobin 6.8g/dL (12.0-15.5) Sodium Level 143mmol/L (136-145) Potassium Level 4.3mmol/L (3.5-5.1) Chloride Level 102mmol/L (98-107) Carbon Dioxide Level 30mmol/L (21-32) Anion Gap 11 (6-14) Blood Urea Nitrogen 43mg/dL (7-20) Creatinine 6.3mg/dL (0.6-1.0) Estimated GFR (Cockcroft-Gault) 8.4 Glucose Level 179mg/dL (70-99) Calcium Level 8.3mg/dL (8.5-10.1) Phosphorus Level 4.6mg/dL (2.6-4.7) Magnesium Level 1.8mg/dL (1.8-2.4) Albumin 2.6g/dL (3.4-5.0) Laboratory Tests Test 11/01/16 04:49 Hemoglobin 6.8g/dL (12.0-15.5) Sodium Level 143mmol/L (136-145) Potassium Level 4.3mmol/L (3.5-5.1) Chloride Level 102mmol/L (98-107) Carbon Dioxide Level 30mmol/L (21-32) Anion Gap 11 (6-14) Blood Urea Nitrogen 43mg/dL (7-20) Creatinine 6.3mg/dL (0.6-1.0) Estimated GFR (Cockcroft-Gault) 8.4 Glucose Level 179mg/dL (70-99) Calcium Level 8.3mg/dL (8.5-10.1) Phosphorus Level 4.6mg/dL (2.6-4.7) Magnesium Level 1.8mg/dL (1.8-2.4) Albumin 2.6g/dL (3.4-5.0) Medications Current Medications Aspirin (Children'S Aspirin) 324 mg 1X ONCE PO Last administered on 10/30/16 17:05; Start 10/30/16 at 17:00; Stop 10/30/16 at 17:01; Status DC Alprazolam (Xanax) 0.5 mg PRN Q8HRS PRN PO ANXIETY / AGITATION Last administered on 11/01/16 06:00; Start 10/30/16 at 19:30 Amlodipine Besylate (Norvasc) 10 mg DAILY PO Last administered on 11/01/16 08: 21; Start 10/31/16 at 09:00 Calcium Acetate (Phoslo) 667 mg TIDWMEALS PO Last administered on 10/31/16 08: 43; Start 10/31/16 at 08:00; Stop 10/31/16 at 10:52; Status DC Carvedilol (Coreg) 12.5 mg BIDWMEALS PO Last administered on 11/01/16 08:21; Start 10/31/16 at 08:00 Divalproex Sodium (Depakote) 250 mg TID PO Last administered on 11/01/16 08:21 ; Start 10/30/16 at 21:00 Gabapentin (Neurontin) 300 mg DAILY PO Last administered on 11/01/16 08:20; Start 10/31/16 at 09:00 Hydralazine HCl (Apresoline) 50 mg QID PO Last administered on 11/01/16 12:17 ; Start 10/30/16 at 21:00 Lamotrigine (LaMICtal) 25 mg DAILY PO Last administered on 11/01/16 08:21; Start 10/31/16 at 09:00 Levothyroxine Sodium (Synthroid) 125 mcg DAILY07 PO Last administered on 05:55; Start 10/31/16 at 07:00 Nicotine (Nicoderm Cq 21mg) 1 patch DAILY TD Last administered on 11/01/16 08: 20; Start 10/31/16 at 09:00 Atorvastatin Calcium (Lipitor) 20 mg QHS PO Last administered on 10/31/16 21: 11; Start 10/30/16 at 22:00 Olanzapine (Zyprexa) 10 mg QHS PO Last administered on 10/31/16 21:11; Start 10/30/16 at 21:30 Non-Formulary Medication 1 tab PRN BID PRN PO Severe pain; Start 10/30/16 at 19 :30; Stop 10/30/16 at 19:34; Status DC Risperidone (Risperdal) 4 mg DAILY PO Last administered on 11/01/16 08:20; Start 10/31/16 at 09:00 Sertraline HCl (Zoloft) 200 mg DAILY PO Last administered on 11/01/16 08:20; Start 10/31/16 at 09:00 Sevelamer Carbonate (Renvela) 800 mg TIDWMEALS PO Last administered on 12:17; Start 10/31/16 at 08:00 Ondansetron HCl (Zofran) 4 mg PRN Q6HRS PRN IV NAUSEA/VOMITING; Start 10/30/16 at 19:30 Acetaminophen/ Hydrocodone Bitart (Lortab 5/325) 1 tab PRN Q4HRS PRN PO MILD PAIN Last administered on 11/01/16 10:13; Start 10/30/16 at 19:30 Acetaminophen (Tylenol) 650 mg PRN Q6HRS PRN PO MILD PAIN / TEMP; Start at 19:30; Status UNV Heparin Sodium (Porcine) 5,000 unit Q8HRS SQ Last administered on 10/31/16 15: 32; Start 10/30/16 at 22:00 Acetaminophen (Tylenol) 650 mg PRN Q6HRS PRN PO FEVER; Start 10/30/16 at 19:45 Hydralazine HCl (Apresoline) 10 mg PRN Q5MIN PRN IVP ELEVATED BP, SEE COMMENTS ; Start 10/30/16 at 19:45 Pantoprazole Sodium (Protonix) 40 mg DAILYAC PO Last administered on 11/01/16 08:21; Start 10/31/16 at 07:30 Ferrous Sulfate 300 mg BIDWMEALS PO Last administered on 11/01/16 08:20; Start 10/31/16 at 10:00 Polyethylene Glycol 17 gm 17 gm DAILY PO Last administered on 11/01/16 08:19; Start 10/31/16 at 12:00 Magnesium Sulfate/ Dextrose 50 ml @ 25 mls/hr PRN DAILY PRN IV for Mag < 1.7 on am labs; Start 10/31/16 at 10:45 Iron Sucrose/ Sodium Chloride (Venofer/Iv Sodium Chloride 0.9% 100ml) 110 ml @ 55 mls/hr 3X/WEEK IV Last administered on 11/01/16 10:14; Start 11/01/16 at 09 :00; Stop 11/10/16 at 10:59 Polyethylene Glycol (miraLAX PACKET) 17 gm PRN DAILY PRN PO CONSTIPATION; Start 10/31/16 at 10:45 Calcium Acetate 2001 mg 2,001 mg TIDWMEALS PO Last administered on 11/01/16 12 :17; Start 10/31/16 at 12:00 Sodium Chloride 1,000 ml @ 1,000 mls/hr Q1H PRN IV hypotension; Start 10/31/16 at 16:46; Stop 10/31/16 at 22:45; Status DC Albumin Human (Albuminar) 200 ml @ 200 mls/hr 1X PRN PRN IV Hypotension; Start 10/31/16 at 17:00; Stop 10/31/16 at 22:59; Status DC Acetaminophen (Tylenol) 500 mg 1X PRN PRN PO MILD PAIN / TEMP; Start 10/31/16 at 17:00; Stop 11/01/16 at 16:59 Diphenhydramine HCl (Benadryl) 25 mg 1X PRN PRN IV ITCHING; Start 10/31/16 at 17:00; Stop 11/01/16 at 16:59 Diphenhydramine HCl 25 mg 25 mg 1X PRN PRN IV ITCHING; Start 10/31/16 at 17:00 ; Stop 11/01/16 at 16:59 Sodium Chloride (Iv Sodium Chloride 0.9% 1000ml Bag) 1,000 ml @ 400 mls/hr Q2H30M PRN IV PATENCY; Start 10/31/16 at 16:46; Stop 11/01/16 at 04:45; Status DC Info (PHARMACY MONITORING -- do not chart) 1 each PRN DAILY PRN MC SEE COMMENTS ; Start 10/31/16 at 17:00 Docusate Sodium (Colace) 100 mg DAILY PO Last administered on 11/01/16 08:21; Start 11/01/16 at 09:00 Fentanyl Citrate (Fentanyl 2ml Vial) 50 mcg 1X ONCE IV Last administered on 11:14; Start 11/01/16 at 11:15; Stop 11/01/16 at 11:16; Status DC Active Scripts Active Alprazolam 0.5 Mg Tablet 0.5 Mg PO Q8HRS PRN Oxycodone Hcl 10 Mg Tablet 1 Tab PO PRN BID PRN Olanzapine Odt (Olanzapine) 10 Mg Tab.rapdis 10 Mg PO QHS Lamotrigine 25 Mg Tablet 25 Mg PO DAILY 30 Days Zoloft (Sertraline Hcl) 100 Mg Tablet 200 Mg PO DAILY Risperidone 4 Mg Tablet 4 Mg PO DAILY Zofran Odt (Ondansetron) 4 Mg Tab.rapdis 1 Tab SL Q8HRS Reported NICODERM CQ 21mg (Nicotine) 1 Each Patch.td24 1 Patch TP DAILY Depakote (Divalproex Sodium) 250 Mg Tablet.dr 250 Mg PO TID Amlodipine Besylate 10 Mg Tablet 10 Mg PO DAILY Hydralazine Hcl 50 Mg Tablet 50 Mg PO QID Renagel (Sevelamer Hcl) 800 Mg Tablet 800 Mg PO TIDWMEALS Simvastatin 40 Mg Tablet 40 Mg PO HS Levothyroxine Sodium 125 Mcg Tablet 125 Mcg PO DAILYAC Gabapentin 300 Mg Capsule 300 Mg PO DAILY Phoslo (Calcium Acetate) 667 Mg Capsule 667 Mg PO TIDWMEALS Carvedilol 12.5 Mg Tablet 12.5 Mg PO BIDWMEALS Vitals/I & O Vital Sign - Last 24 Hours 10/31/16 10/31/16 10/31/16 10/31/16 15:00 19:26 20:04 21:11 Temp 98.1 98.1 Pulse 62 77 Resp 18 B/P 118/68 138/72 Pulse Ox 97 97 O2 Delivery Room Air Room Air Room Air 10/31/16 11/01/16 11/01/16 11/01/16 23:23 02:50 06:01 07:00 Temp 98.0 97.6 98.0 97.6 Pulse 77 82 Resp 20 18 16 B/P 138/72 151/74 Pulse Ox 96 96 98 O2 Delivery Room Air Room Air Room Air 11/01/16 11/01/16 11/01/16 11/01/16 07:01 07:45 08:21 08:21 Pulse 82 82 B/P 151/74 151/74 Pulse Ox 96 O2 Delivery Room Air 11/01/16 11/01/16 11/01/16 11/01/16 08:22 10:13 11:00 11:14 Temp 97.8 97.8 Pulse 82 71 Resp 16 B/P 151/74 125/63 Pulse Ox 98 O2 Delivery Room Air Room Air Room Air 11/01/16 11/01/16 11/01/16 11/01/16 11:14 12:17 12:47 13:30 Temp 98.0 98.0 Pulse 71 68 Resp 14 B/P 125/63 134/69 O2 Delivery Room Air Room Air 11/01/16 13:45 Temp 98.3 98.3 Pulse 70 Resp 13 B/P 121/60 Intake and Output 10/31/16 10/31/16 11/01/16 15:00 23:00 07:00 Intake Total 510 ml 206 ml 360 ml Balance 510 ml 206 ml 360 ml BRAYAN TAYLOR MD Nov 01, 2016 14:02
--- NOTE | 2016-11-01 14:37 | PDOC ---
SUBJECTIVE ROS ESRD Denies new comcplaitns CVS: no Orthopnea, no CP RESP: no SOB, no SAMPSON GI: no Nausea, no Vomiting : no Dysuria, no Urgency OBJECTIVE Vital Signs Vital Signs Date Time Temp Pulse Resp B/P Pulse Ox O2 Delivery O2 Flow Rate FiO2 11/01/16 14:30 98.3 72 16 132/66 98.3 11/01/16 12:47 Room Air 11/01/16 11:00 98 I & 0 Intake and Output 11/01/16 07:00 Intake Total 1076 ml Balance 1076 ml Intake Oral 1076 ml PHYSICAL EXAM Physical Exam GEN: Awake, Oriented x 3, In no distress EYES: Vision Unchanged, Conjunctiva Normal EN: No EN Drainage, Mucous Membranes moist NECK: no JVD, no JVP, Supple, no Thyromegaly CVS: S1S2, + Murmur, No Gallop, No Rub,no Edema RESP: no Rales, no Rhonchi,no Acc. Muscle Use GI: BS + ve, NO Bruit, Non Tender, Non Distended : no CVA tenderness, no Suprapubic Tenderness DIAGNOSIS/ASSESSMENT Assessment & Plan ESRD: Current fluid and E-lyte status does not necessitate emergent need for dialysis. Will re-evaluate for dialysis in the am and continue on TTSat schedule. ANEMIA; Aranap as ordered, Transfuse as ongoing ^K - now resolved HTN: Current BP meds as reviewed. See orders for changes. Hyperphos - nwo better Homeless ness - contributing to HD non-compliance - SW to assess ICE PICA - suspect due to Fe def state - IV Fe as ordered Discussed Plan of Care with pt at bedside Problems: COMMENT/RELEVANT DATA Meds Current Medications Medications (Trade) Dose Ordered Sig/Zayda Start Time Stop Time Status Last Admin Dose Admin Acetaminophen (Tylenol) 500 mg 1X PRN PRN 10/31/16 17:00 11/01/16 16:59 Acetaminophen/ Hydrocodone Bitart (Lortab 5/325) 1 tab PRN Q4HRS PRN 10/30/16 19:30 11/01/16 10:13 1 TAB Albumin Human (Albuminar) 200 ml @ 200 mls/hr 1X PRN PRN 10/31/16 17:00 10/31/16 22:59 DC Alprazolam (Xanax) 0.5 mg PRN Q8HRS PRN 10/30/16 19:30 11/01/16 06:00 0.5 MG Amlodipine Besylate (Norvasc) 10 mg DAILY 10/31/16 09:00 11/01/16 08:21 10 MG Aspirin (Children'S Aspirin) 324 mg 1X ONCE 10/30/16 17:00 10/30/16 17:01 DC 10/30/16 17:05 324 MG Atorvastatin Calcium (Lipitor) 20 mg QHS 10/30/16 22:00 10/31/16 21:11 20 MG Calcium Acetate (Phoslo) 667 mg TIDWMEALS 10/31/16 08:00 10/31/16 10:52 DC 10/31/16 08:43 667 MG Calcium Acetate 2001 mg 2,001 mg TIDWMEALS 10/31/16 12:00 11/01/16 12:17 2,001 MG Carvedilol (Coreg) 12.5 mg BIDWMEALS 10/31/16 08:00 11/01/16 08:21 12.5 MG Diphenhydramine HCl (Benadryl) 25 mg 1X PRN PRN 10/31/16 17:00 11/01/16 16:59 Diphenhydramine HCl 25 mg 25 mg 1X PRN PRN 10/31/16 17:00 11/01/16 16:59 Divalproex Sodium (Depakote) 250 mg TID 10/30/16 21:00 11/01/16 14:28 250 MG Docusate Sodium (Colace) 100 mg DAILY 11/01/16 09:00 11/01/16 08:21 100 MG Fentanyl Citrate (Fentanyl 2ml Vial) 50 mcg 1X ONCE 11/01/16 11:15 11/01/16 11:16 DC 11/01/16 11:14 50 MCG Ferrous Sulfate 300 mg BIDWMEALS 10/31/16 10:00 11/01/16 08:20 300 MG Gabapentin (Neurontin) 300 mg DAILY 10/31/16 09:00 11/01/16 08:20 300 MG Heparin Sodium (Porcine) 5,000 unit Q8HRS 10/30/16 22:00 10/31/16 15:32 5,000 UNIT Hydralazine HCl (Apresoline) 10 mg PRN Q5MIN PRN 10/30/16 19:45 Info (PHARMACY MONITORING -- do not chart) 1 each PRN DAILY PRN 10/31/16 17:00 Iron Sucrose/ Sodium Chloride (Venofer/Iv Sodium Chloride 0.9% 100ml) 110 ml @ 55 mls/hr 3X/WEEK 11/01/16 09:00 11/10/16 10:59 11/01/16 10:14 55 MLS/HR Lamotrigine (LaMICtal) 25 mg DAILY 10/31/16 09:00 11/01/16 08:21 25 MG Levothyroxine Sodium (Synthroid) 125 mcg DAILY07 10/31/16 07:00 11/01/16 05:55 125 MCG Magnesium Sulfate/ Dextrose 50 ml @ 25 mls/hr PRN DAILY PRN 10/31/16 10:45 Nicotine (Nicoderm Cq 21mg) 1 patch DAILY 10/31/16 09:00 11/01/16 08:20 1 PATCH Non-Formulary Medication 1 tab PRN BID PRN 10/30/16 19:30 10/30/16 19:34 DC Olanzapine (Zyprexa) 10 mg QHS 10/30/16 21:30 10/31/16 21:11 10 MG Ondansetron HCl (Zofran) 4 mg PRN Q6HRS PRN 10/30/16 19:30 Pantoprazole Sodium (Protonix) 40 mg DAILYAC 10/31/16 07:30 11/01/16 08:21 40 MG Polyethylene Glycol (miraLAX PACKET) 17 gm PRN DAILY PRN 10/31/16 10:45 Polyethylene Glycol 17 gm 17 gm DAILY 10/31/16 12:00 11/01/16 08:19 17 GM Risperidone (Risperdal) 4 mg DAILY 10/31/16 09:00 11/01/16 08:20 4 MG Sertraline HCl (Zoloft) 200 mg DAILY 10/31/16 09:00 11/01/16 08:20 200 MG Sevelamer Carbonate (Renvela) 800 mg TIDWMEALS 10/31/16 08:00 11/01/16 12:17 800 MG Sodium Chloride (Iv Sodium Chloride 0.9% 1000ml Bag) 1,000 ml @ 400 mls/hr Q2H30M PRN 10/31/16 16:46 11/01/16 04:45 DC Lab Laboratory Tests Test 11/01/16 04:49 Hemoglobin 6.8g/dL (12.0-15.5) Sodium Level 143mmol/L (136-145) Potassium Level 4.3mmol/L (3.5-5.1) Chloride Level 102mmol/L (98-107) Carbon Dioxide Level 30mmol/L (21-32) Anion Gap 11 (6-14) Blood Urea Nitrogen 43mg/dL (7-20) Creatinine 6.3mg/dL (0.6-1.0) Estimated GFR (Cockcroft-Gault) 8.4 Glucose Level 179mg/dL (70-99) Calcium Level 8.3mg/dL (8.5-10.1) Phosphorus Level 4.6mg/dL (2.6-4.7) Magnesium Level 1.8mg/dL (1.8-2.4) Albumin 2.6g/dL (3.4-5.0) SHYANNE TYLER MD Nov 01, 2016 14:37
[2016-11-01] MEDS: OLANZAPINE 5 MG TABLET. PO SCH (21:49)
[2016-11-01] MEDS: ATORVASTATIN CALCIUM 20 MG TABLET PO SCH (21:49)
[2016-11-02] VITALS (14 sets, daily range): BP systolic 124–159; BP diastolic 47–70
[2016-11-02 04:09] LABS: ALBUMIN 2.4 g/dL (3.4-5.0); CALCIUM 8.7 mg/dL (8.5-10.1); CREATININE 7.7 mg/dL (0.6-1.0); GFR 6.6; POTASSIUM 4.6 mmol/L (3.5-5.1)
[2016-11-02] MEDS: HEPARIN PF for SUB-Q USE 5,000 UNIT/0.5 ML VIAL. SQ SCH ×3 (06:00→21:19)
[2016-11-02] MEDS: HYDROCODONE/APAP 5/325MG TABLET. PO PRN ×3 (06:24→21:14)
[2016-11-02] MEDS: LEVOTHYROXINE 125 MCG TABLET PO SCH (06:24)
[2016-11-02] MEDS: PANTOPRAZOLE 40 MG TABLET. PO SCH (07:30)
[2016-11-02] MEDS ORDERED: IV NORMAL SALINE 1000ML BAG 1,000 ML IV PRN ×2 (07:39)
[2016-11-02] MEDS ORDERED: DIALYSIS PATIENT. MC PRN (07:45)
[2016-11-02] MEDS ORDERED: DIPHENHYDRAMINE 50 MG/ML VIAL IV PRN (07:45)
[2016-11-02] MEDS ORDERED: LABETALOL 20 MG/4 ML DISP.SYRIN. IVP PRN (07:45)
[2016-11-02] MEDS ORDERED: ACETAMINOPHEN 500 MG TABLET PO PRN (07:45)
[2016-11-02] MEDS: SEVELAMER CARBONATE 800 MG TABLET. PO SCH ×3 (08:00→17:46)
[2016-11-02] MEDS: CALCIUM ACETATE 667 MG CAPSULE PO SCH ×3 (08:00→17:45)
[2016-11-02] MEDS: DIPHENHYDRAMINE 50 MG/ML VIAL IV PRN ×2 (08:27→15:55)
[2016-11-02] MEDS: ALPRAZOLAM 0.5 MG TABLET PO PRN ×2 (08:41→17:46)
[2016-11-02] MEDS: POLYETHYLENE GLYCOL 3350 17 GM PACKET. PO SCH (09:00)
[2016-11-02] MEDS: HYDRALAZINE 50 MG TABLET PO SCH ×4 (09:00→21:13)
--- NOTE | 2016-11-02 09:21 | PDOC ---
Dialysis Progress Note Dialysis Note Dialysis Note Seen on Hemodialysis, tolerating treatment Well Vitals on Hemodialysis: 147/74 68 100.4 this am; 98.5 at HD General Appearance: Awake: Alert Oriented x 2-3 Neck: No JVD or JVP Chest: CTA [place] Heart: S1 S2 Abdomen - Soft NTND Extremities - No Edema ESRD ARF: Dialysis as below F 180 NR 3.5 Hrs 2 K 2.5 Ca 140 Na 35 HC03 Qb 350 + Qd 500+ Heparin 0 Units Uf 3-4 Kgs or to dry weight as tolerated (pt wants 5 kg so will try) Transfuse PRCBC's on HD if needed May give 25-50 gms of 25% Albumin if needed to maintain Hemodynamic stability Treatment plan reviewed and discussed with research specialist [ ] Vitals Vital Signs Vital Signs Date Time Temp Pulse Resp B/P Pulse Ox O2 Delivery O2 Flow Rate FiO2 11/02/16 07:50 100.4 74 18 141/69 98 Room Air 100.4 Labs Last Labs Laboratory Tests Test 10/31/16 10:38 11/01/16 04:49 11/02/16 03:30 Glucose (Fingerstick) 166mg/dL (70-99) Hemoglobin 6.8g/dL (12.0-15.5) Sodium Level 143mmol/L (136-145) 141mmol/L (136-145) Potassium Level 4.3mmol/L (3.5-5.1) 4.6mmol/L (3.5-5.1) Chloride Level 102mmol/L (98-107) 102mmol/L (98-107) Carbon Dioxide Level 30mmol/L (21-32) 29mmol/L (21-32) Anion Gap 11 (6-14) 10 (6-14) Blood Urea Nitrogen 43mg/dL (7-20) 73mg/dL (7-20) Creatinine 6.3mg/dL (0.6-1.0) 7.7mg/dL (0.6-1.0) Estimated GFR (Cockcroft-Gault) 8.4 6.6 Glucose Level 179mg/dL (70-99) 114mg/dL (70-99) Calcium Level 8.3mg/dL (8.5-10.1) 8.7mg/dL (8.5-10.1) Phosphorus Level 4.6mg/dL (2.6-4.7) 4.0mg/dL (2.6-4.7) Magnesium Level 1.8mg/dL (1.8-2.4) 1.8mg/dL (1.8-2.4) Albumin 2.6g/dL (3.4-5.0) 2.4g/dL (3.4-5.0) Laboratory Tests Test 11/02/16 03:30 Sodium Level 141mmol/L (136-145) Potassium Level 4.6mmol/L (3.5-5.1) Chloride Level 102mmol/L (98-107) Carbon Dioxide Level 29mmol/L (21-32) Anion Gap 10 (6-14) Blood Urea Nitrogen 73mg/dL (7-20) Creatinine 7.7mg/dL (0.6-1.0) Estimated GFR (Cockcroft-Gault) 6.6 Glucose Level 114mg/dL (70-99) Calcium Level 8.7mg/dL (8.5-10.1) Phosphorus Level 4.0mg/dL (2.6-4.7) Magnesium Level 1.8mg/dL (1.8-2.4) Albumin 2.4g/dL (3.4-5.0) Assessment Assessment Problems Medical Problems: (1) Abdominal pain Status: Acute (2) ESRD (end stage renal disease) Status: Acute Problems: Plan Plan of Care Problems Medical Problems: (1) Abdominal pain Status: Acute (2) ESRD (end stage renal disease) Status: Acute SHYANNE TYLER MD Nov 02, 2016 09:21
--- NOTE | 2016-11-02 12:28 | PDOC ---
Infectious Disease Note Vital Sign Vital Signs Vital Signs Date Time Temp Pulse Resp B/P Pulse Ox O2 Delivery O2 Flow Rate FiO2 11/02/16 08:00 Room Air 11/02/16 07:50 100.4 74 18 141/69 98 100.4 Labs Lab Laboratory Tests Test 11/02/16 03:30 11/02/16 09:55 Sodium Level 141mmol/L (136-145) Potassium Level 4.6mmol/L (3.5-5.1) Chloride Level 102mmol/L (98-107) Carbon Dioxide Level 29mmol/L (21-32) Anion Gap 10 (6-14) Blood Urea Nitrogen 73mg/dL (7-20) Creatinine 7.7mg/dL (0.6-1.0) Estimated GFR (Cockcroft-Gault) 6.6 Glucose Level 114mg/dL (70-99) Calcium Level 8.7mg/dL (8.5-10.1) Phosphorus Level 4.0mg/dL (2.6-4.7) Magnesium Level 1.8mg/dL (1.8-2.4) Albumin 2.4g/dL (3.4-5.0) Hemoglobin 6.4g/dL (12.0-15.5) Objective Assessment Fever Left flank/groin pain ESRD Homeless Plan Plan of Care culture [facility] and [facility] supportive care JULIA TYLER MD Nov 02, 2016 12:28
[2016-11-02] MEDS: ACETAMINOPHEN 325 MG TABLET. PO PRN ×2 (12:58→18:08)
--- NOTE | 2016-11-02 13:53 | CONS ---
DATE OF CONSULTATION: 11/02/2016 REQUESTING PHYSICIAN: Dr. Schaefer. REASON FOR CONSULTATION: Fever. HISTORY OF PRESENT ILLNESS: This is a 56-year-old -[place] female. She says she is homeless who came in with left groin pain that has been going on for 3 days. The patient says she has not had any trauma, denies any urinary symptoms. She does get small amount of urine every day. She has had some nausea. No vomiting. No diarrhea. She has had running fever today 100.4, hence the consult. The patient is not on any antibiotics. The patient denies any headache, visual symptoms, chest pain or shortness of breath. PAST MEDICAL HISTORY: Positive for end-stage renal disease on hemodialysis. The patient has gastroesophageal reflux disease, hypertension, anemia and carpal tunnel syndrome. SOCIAL HISTORY: Negative for alcohol use or drug use. The patient does smoke. ALLERGIES: LISTED ALLERGIC TO TRAMADOL. CURRENT MEDICATIONS: Reviewed. The patient is not on any antibiotics. REVIEW OF SYSTEMS: As per HPI, all other systems reviewed are negative. PHYSICAL EXAMINATION: GENERAL: Alert, oriented female, not in distress. VITAL SIGNS: Stable. T-max 100.4. HEENT: Both pupils are round and reacting. No conjunctival lesion, no lesion in the mouth. NECK: Supple, no JVP. No lymphadenopathy. LUNGS: Clear. HEART: S1, S2 regular. ABDOMEN: Benign. EXTREMITIES: No edema or cyanosis. SKIN: Unremarkable. The patient's hip movements are normal. There is no tenderness locally as well as into the left lower quadrant. NEUROLOGIC: The patient is neurologically intact. LABORATORY DATA: White count is 5.3, hemoglobin down to 6.4, platelets are 127,000. BUN 73, creatinine 7.7. Urinalysis was actually ____ negative for any infection. MRSA screen negative. Abdominal CT did not reveal any acute changes. Chest x-ray was unremarkable other than cardiomegaly. 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 IMPRESSION: 1. Low-grade fever. It is unclear etiology. There is no obvious source of infection. 2. End-stage renal disease, on hemodialysis. 3. Hypertension. 4. Being homeless that will increase the risk of sudden interaction like tuberculosis or Bartonella things like that. We will get blood cultures done, supportive care, might consider starting vancomycin and Zosyn since she has been febrile after 3 days being in the hospital and we will continue to follow. If she continues to have fever, we will continue to do more workup. Thank you very much, Dr. Schaefer for giving me the opportunity to participate in this patient's care. JULIA TYLER MD DR: EMMIE/mic JOB#: [id number] / [id number]
[2016-11-02] MEDS: DIVALPROEX DELAYED RELEASE 250 MG TABLET.DR. PO SCH ×3 (14:00→21:13)
--- NOTE | 2016-11-02 14:14 | PDOC ---
Subjective: Subjective: Brown stool today. LLQ pain, asks for Fentanyl. Objective: Objective: Per RN - to transfuse another 2 units. Some pain. No bleeding. Vital Signs: Vital Signs Date Time Temp Pulse Resp B/P Pulse Ox O2 Delivery O2 Flow Rate FiO2 11/02/16 08:00 Room Air 11/02/16 07:50 100.4 74 18 141/69 98 100.4 Labs: Laboratory Tests Test 11/02/16 03:30 11/02/16 09:55 Sodium Level 141mmol/L Potassium Level 4.6mmol/L Chloride Level 102mmol/L Carbon Dioxide Level 29mmol/L Anion Gap 10 Blood Urea Nitrogen 73mg/dL Creatinine 7.7mg/dL Estimated GFR (Cockcroft-Gault) 6.6 Glucose Level 114mg/dL Calcium Level 8.7mg/dL Phosphorus Level 4.0mg/dL Magnesium Level 1.8mg/dL Albumin 2.4g/dL Hemoglobin 6.4g/dL PE: GEN: NAD, eating lunch LUNGS: clear anteriorly HEART: RRR ABD: NABS, S/ND, vaguely tender LLQ to left hip NEURO/PSYCH: A & O 3 A/P: HAYES -Hgb still in 6s to transfuse again -colonoscopy 2007 w/ internal hemorrhoids -ESRD on HD GERD, h/o PUD, h/o duodenal angioma -s/p cautery/EGD last week @ [facility] -on PPI Hep C -no treatment -- Continue PPI and iron. ARNAUD KITCHEN Nov 02, 2016 14:14
[2016-11-02] MEDS: FERROUS SULFATE ORAL 300 MG/5 ML SOLUTION. PO SCH ×2 (14:42→17:45)
[2016-11-02] MEDS: SERTRALINE 50 MG TABLET. PO SCH (14:42)
[2016-11-02] MEDS: risperiDONE 1 MG TABLET. PO SCH (14:43)
[2016-11-02] MEDS: AMLODIPINE BESYLATE 10 MG TABLET PO SCH (14:43)
[2016-11-02] MEDS: lamoTRIgine 25 MG TABLET. PO SCH (14:43)
[2016-11-02] MEDS: DOCUSATE SODIUM 100 MG CAPSULE PO SCH (14:43)
[2016-11-02] MEDS: CARVEDILOL 12.5 MG TABLET PO SCH ×2 (14:44→17:47)
[2016-11-02] MEDS: GABAPENTIN 300 MG CAPSULE. PO SCH (14:44)
[2016-11-02] MEDS: NICOTINE 21MG PATCH. TD SCH (14:44)
--- NOTE | 2016-11-02 15:35 | PDOC ---
PROGRESS NOTES Chief Complaint Chief Complaint anemia, refractory to PRBC 1. abd pain, acute on chronic 2. ESRD on HD 3. Type 2 diabetes 4. High cholesterol 5. Hypertension 6. Hypothyroidism 7. Hepatitis C 8. h/o PCP Abuse 9. Chronic back and hip pain 10. acute on chronic anemia, with ESRD, recent GIB 11. NON compliance 12. H/O Schizophrenia, suicidal idea 13. Homelessness 14. constipation History of Present Illness History of Present Illness 1b u PRBC did not help HGb still anemic today pain present but stable, LLQ no change Vitals Vitals Vital Signs Date Time Temp Pulse Resp B/P Pulse Ox O2 Delivery O2 Flow Rate FiO2 11/02/16 14:46 98.6 68 16 124/55 98.6 11/02/16 08:00 Room Air 11/02/16 07:50 98 Physical Exam General: Alert, Oriented X3, Cooperative Heart: Regular rate Lungs: Clear Abdomen: Normal bowel sounds, Soft, No tenderness, Other (pain not worsened unless she uses her abd muscles) Extremities: No clubbing Skin: No rashes, No significant lesion Labs LABS Laboratory Tests Test 11/02/16 03:30 11/02/16 09:55 Sodium Level 141mmol/L (136-145) Potassium Level 4.6mmol/L (3.5-5.1) Chloride Level 102mmol/L (98-107) Carbon Dioxide Level 29mmol/L (21-32) Anion Gap 10 (6-14) Blood Urea Nitrogen 73mg/dL (7-20) Creatinine 7.7mg/dL (0.6-1.0) Estimated GFR (Cockcroft-Gault) 6.6 Glucose Level 114mg/dL (70-99) Calcium Level 8.7mg/dL (8.5-10.1) Phosphorus Level 4.0mg/dL (2.6-4.7) Magnesium Level 1.8mg/dL (1.8-2.4) Albumin 2.4g/dL (3.4-5.0) Hemoglobin 6.4g/dL (12.0-15.5) Review of Systems Review of Systems LLQ pain, Assessment and Plan Assessmemt and Plan Problems Medical Problems: (1) Abdominal pain Status: Acute (2) ESRD (end stage renal disease) Status: Acute Problems: Comment Review of Relevant I have reviewed the following items hemal (where applicable) has been applied. Labs Laboratory Tests Test 11/01/16 04:49 11/02/16 03:30 11/02/16 09:55 Hemoglobin 6.8g/dL (12.0-15.5) 6.4g/dL (12.0-15.5) Sodium Level 143mmol/L (136-145) 141mmol/L (136-145) Potassium Level 4.3mmol/L (3.5-5.1) 4.6mmol/L (3.5-5.1) Chloride Level 102mmol/L (98-107) 102mmol/L (98-107) Carbon Dioxide Level 30mmol/L (21-32) 29mmol/L (21-32) Anion Gap 11 (6-14) 10 (6-14) Blood Urea Nitrogen 43mg/dL (7-20) 73mg/dL (7-20) Creatinine 6.3mg/dL (0.6-1.0) 7.7mg/dL (0.6-1.0) Estimated GFR (Cockcroft-Gault) 8.4 6.6 Glucose Level 179mg/dL (70-99) 114mg/dL (70-99) Calcium Level 8.3mg/dL (8.5-10.1) 8.7mg/dL (8.5-10.1) Phosphorus Level 4.6mg/dL (2.6-4.7) 4.0mg/dL (2.6-4.7) Magnesium Level 1.8mg/dL (1.8-2.4) 1.8mg/dL (1.8-2.4) Albumin 2.6g/dL (3.4-5.0) 2.4g/dL (3.4-5.0) Laboratory Tests Test 11/02/16 03:30 11/02/16 09:55 Sodium Level 141mmol/L (136-145) Potassium Level 4.6mmol/L (3.5-5.1) Chloride Level 102mmol/L (98-107) Carbon Dioxide Level 29mmol/L (21-32) Anion Gap 10 (6-14) Blood Urea Nitrogen 73mg/dL (7-20) Creatinine 7.7mg/dL (0.6-1.0) Estimated GFR (Cockcroft-Gault) 6.6 Glucose Level 114mg/dL (70-99) Calcium Level 8.7mg/dL (8.5-10.1) Phosphorus Level 4.0mg/dL (2.6-4.7) Magnesium Level 1.8mg/dL (1.8-2.4) Albumin 2.4g/dL (3.4-5.0) Hemoglobin 6.4g/dL (12.0-15.5) Microbiology 10/30/16 Urine Culture - Final, Complete 10/30/16 Urine Culture Result 1 (CHRISTOPH) - Final, Complete 10/30/16 Urine Culture Result 2 (CHRISTOPH) - Final, Complete Medications Current Medications Aspirin (Children'S Aspirin) 324 mg 1X ONCE PO Last administered on 10/30/16 17:05; Start 10/30/16 at 17:00; Stop 10/30/16 at 17:01; Status DC Alprazolam (Xanax) 0.5 mg PRN Q8HRS PRN PO ANXIETY / AGITATION Last administered on 11/02/16 08:41; Start 10/30/16 at 19:30 Amlodipine Besylate (Norvasc) 10 mg DAILY PO Last administered on 11/02/16 14: 43; Start 10/31/16 at 09:00 Calcium Acetate (Phoslo) 667 mg TIDWMEALS PO Last administered on 10/31/16 08: 43; Start 10/31/16 at 08:00; Stop 10/31/16 at 10:52; Status DC Carvedilol (Coreg) 12.5 mg BIDWMEALS PO Last administered on 11/02/16 14:44; Start 10/31/16 at 08:00 Divalproex Sodium (Depakote) 250 mg TID PO Last administered on 11/02/16 14:43 ; Start 10/30/16 at 21:00 Gabapentin (Neurontin) 300 mg DAILY PO Last administered on 11/02/16 14:44; Start 10/31/16 at 09:00 Hydralazine HCl (Apresoline) 50 mg QID PO Last administered on 11/02/16 14:43 ; Start 10/30/16 at 21:00 Lamotrigine (LaMICtal) 25 mg DAILY PO Last administered on 11/02/16 14:43; Start 10/31/16 at 09:00 Levothyroxine Sodium (Synthroid) 125 mcg DAILY07 PO Last administered on 06:24; Start 10/31/16 at 07:00 Nicotine (Nicoderm Cq 21mg) 1 patch DAILY TD Last administered on 11/02/16 14: 44; Start 10/31/16 at 09:00 Atorvastatin Calcium (Lipitor) 20 mg QHS PO Last administered on 11/01/16 21: 49; Start 10/30/16 at 22:00 Olanzapine (Zyprexa) 10 mg QHS PO Last administered on 11/01/16 21:49; Start 10/30/16 at 21:30 Non-Formulary Medication 1 tab PRN BID PRN PO Severe pain; Start 10/30/16 at 19 :30; Stop 10/30/16 at 19:34; Status DC Risperidone (Risperdal) 4 mg DAILY PO Last administered on 11/02/16 14:43; Start 10/31/16 at 09:00 Sertraline HCl (Zoloft) 200 mg DAILY PO Last administered on 11/02/16 14:42; Start 10/31/16 at 09:00 Sevelamer Carbonate (Renvela) 800 mg TIDWMEALS PO Last administered on 17:42; Start 10/31/16 at 08:00 Ondansetron HCl (Zofran) 4 mg PRN Q6HRS PRN IV NAUSEA/VOMITING; Start 10/30/16 at 19:30 Acetaminophen/ Hydrocodone Bitart (Lortab 5/325) 1 tab PRN Q4HRS PRN PO MILD PAIN Last administered on 11/02/16 06:24; Start 10/30/16 at 19:30 Acetaminophen (Tylenol) 650 mg PRN Q6HRS PRN PO MILD PAIN / TEMP; Start at 19:30; Status UNV Heparin Sodium (Porcine) 5,000 unit Q8HRS SQ Last administered on 11/02/16 14: 00; Start 10/30/16 at 22:00 Acetaminophen (Tylenol) 650 mg PRN Q6HRS PRN PO FEVER Last administered on 11/02 12:58; Start 10/30/16 at 19:45 Hydralazine HCl (Apresoline) 10 mg PRN Q5MIN PRN IVP ELEVATED BP, SEE COMMENTS ; Start 10/30/16 at 19:45 Pantoprazole Sodium (Protonix) 40 mg DAILYAC PO Last administered on 11/01/16 08:21; Start 10/31/16 at 07:30 Ferrous Sulfate 300 mg BIDWMEALS PO Last administered on 11/02/16 14:42; Start 10/31/16 at 10:00 Polyethylene Glycol 17 gm 17 gm DAILY PO Last administered on 11/02/16 09:00; Start 10/31/16 at 12:00 Magnesium Sulfate/ Dextrose 50 ml @ 25 mls/hr PRN DAILY PRN IV for Mag < 1.7 on am labs; Start 10/31/16 at 10:45 Iron Sucrose/ Sodium Chloride (Venofer/Iv Sodium Chloride 0.9% 100ml) 110 ml @ 55 mls/hr 3X/WEEK IV Last administered on 11/01/16 10:14; Start 11/01/16 at 09 :00; Stop 11/10/16 at 10:59 Polyethylene Glycol (miraLAX PACKET) 17 gm PRN DAILY PRN PO CONSTIPATION; Start 10/31/16 at 10:45 Calcium Acetate 2001 mg 2,001 mg TIDWMEALS PO Last administered on 11/01/16 17 :42; Start 10/31/16 at 12:00 Sodium Chloride 1,000 ml @ 1,000 mls/hr Q1H PRN IV hypotension; Start 10/31/16 at 16:46; Stop 10/31/16 at 22:45; Status DC Albumin Human (Albuminar) 200 ml @ 200 mls/hr 1X PRN PRN IV Hypotension; Start 10/31/16 at 17:00; Stop 10/31/16 at 22:59; Status DC Acetaminophen (Tylenol) 500 mg 1X PRN PRN PO MILD PAIN / TEMP; Start 10/31/16 at 17:00; Stop 11/01/16 at 16:59; Status DC Diphenhydramine HCl (Benadryl) 25 mg 1X PRN PRN IV ITCHING; Start 10/31/16 at 17:00; Stop 11/01/16 at 16:59; Status DC Diphenhydramine HCl 25 mg 25 mg 1X PRN PRN IV ITCHING; Start 10/31/16 at 17:00 ; Stop 11/01/16 at 16:59; Status DC Sodium Chloride (Iv Sodium Chloride 0.9% 1000ml Bag) 1,000 ml @ 400 mls/hr Q2H30M PRN IV PATENCY; Start 10/31/16 at 16:46; Stop 11/01/16 at 04:45; Status DC Info (PHARMACY MONITORING -- do not chart) 1 each PRN DAILY PRN MC SEE COMMENTS ; Start 10/31/16 at 17:00 Docusate Sodium (Colace) 100 mg DAILY PO Last administered on 11/02/16 14:43; Start 11/01/16 at 09:00 Fentanyl Citrate 50 mcg 50 mcg 1X ONCE IV Last administered on 11/01/16 11:14 ; Start 11/01/16 at 11:15; Stop 11/01/16 at 11:16; Status DC Sodium Chloride (Iv Sodium Chloride 0.9% 1000ml Bag) 1,000 ml @ 1,000 mls/hr Q1H PRN IV hypotension; Start 11/02/16 at 07:39; Stop 11/02/16 at 13:38; Status DC Acetaminophen (Tylenol) 500 mg 1X PRN PRN PO MILD PAIN / TEMP; Start 11/02/16 at 07:45; Stop 11/03/16 at 07:44 Diphenhydramine HCl (Benadryl) 25 mg 1X PRN PRN IV ITCHING Last administered on 11/02/16 08:27; Start 11/02/16 at 07:45; Stop 11/03/16 at 07:44 Diphenhydramine HCl (Benadryl) 25 mg 1X PRN PRN IV ITCHING Last administered on 11/02/16 08:41; Start 11/02/16 at 07:45; Stop 11/03/16 at 07:44 Labetalol HCl 10 mg 10 mg PRN Q1HR PRN IVP SBP > 180; Start 11/02/16 at 07:45; Stop 11/03/16 at 07:44 Sodium Chloride (Iv Sodium Chloride 0.9% 1000ml Bag) 1,000 ml @ 400 mls/hr Q2H30M PRN IV PATENCY; Start 11/02/16 at 07:39; Stop 11/02/16 at 19:38 Info (PHARMACY MONITORING -- do not chart) 1 each PRN DAILY PRN MC SEE COMMENTS ; Start 11/02/16 at 07:45; Stop 11/02/16 at 07:51; Status DC Calcium Carbonate/ Glycine (Tums) 500 mg PRN AFTMEALHC PRN PO INDIGESTION; Start 11/02/16 at 15:15 Active Scripts Active Percocet 5-325 Mg Tablet (Oxycodone/Acetaminophen) 1 Each Tablet 1 Tab PO QID PRN Alprazolam 0.5 Mg Tablet 0.5 Mg PO Q8HRS PRN Oxycodone Hcl 10 Mg Tablet 1 Tab PO PRN BID PRN Olanzapine Odt (Olanzapine) 10 Mg Tab.rapdis 10 Mg PO QHS Lamotrigine 25 Mg Tablet 25 Mg PO DAILY 30 Days Zoloft (Sertraline Hcl) 100 Mg Tablet 200 Mg PO DAILY Risperidone 4 Mg Tablet 4 Mg PO DAILY Zofran Odt (Ondansetron) 4 Mg Tab.rapdis 1 Tab SL Q8HRS Reported NICODERM CQ 21mg (Nicotine) 1 Each Patch.td24 1 Patch TP DAILY Depakote (Divalproex Sodium) 250 Mg Tablet.dr 250 Mg PO TID Amlodipine Besylate 10 Mg Tablet 10 Mg PO DAILY Hydralazine Hcl 50 Mg Tablet 50 Mg PO QID Renagel (Sevelamer Hcl) 800 Mg Tablet 800 Mg PO TIDWMEALS Simvastatin 40 Mg Tablet 40 Mg PO HS Levothyroxine Sodium 125 Mcg Tablet 125 Mcg PO DAILYAC Gabapentin 300 Mg Capsule 300 Mg PO DAILY Phoslo (Calcium Acetate) 667 Mg Capsule 667 Mg PO TIDWMEALS Carvedilol 12.5 Mg Tablet 12.5 Mg PO BIDWMEALS Vitals/I & O Vital Sign - Last 24 Hours 11/01/16 11/01/16 11/01/16 11/01/16 15:45 16:06 16:35 17:32 Temp 98.1 98.4 97.8 98.1 98.4 97.8 Pulse 76 72 77 Resp 16 16 B/P 129/71 138/71 144/76 O2 Delivery Room Air Room Air 11/01/16 11/01/16 11/01/16 11/01/16 17:42 17:44 19:00 20:00 Temp 98.4 98.4 Pulse 77 77 73 Resp 18 B/P 144/76 144/76 119/62 Pulse Ox 98 O2 Delivery Room Air Room Air 11/01/16 11/01/16 11/01/16 11/02/16 21:50 21:50 23:00 06:24 Temp 99.5 99.5 Pulse 73 76 Resp 18 18 B/P 119/62 137/61 Pulse Ox 96 98 O2 Delivery Room Air Room Air Room Air 11/02/16 11/02/16 11/02/16 11/02/16 07:39 07:50 08:00 14:30 Temp 100.4 99.3 100.4 99.3 Pulse 74 75 Resp 18 18 14 B/P 141/69 136/52 Pulse Ox 98 98 O2 Delivery Room Air Room Air Room Air 11/02/16 11/02/16 11/02/16 11/02/16 14:43 14:43 14:44 14:46 Temp 98.6 98.6 Pulse 75 75 75 68 Resp 16 B/P 136/52 136/52 136/52 124/55 Intake and Output 11/01/16 11/01/16 11/02/16 15:00 23:00 07:00 Intake Total 350 ml 1500 ml Output Total 50 ml Balance 350 ml 1500 ml -50 ml BRAYAN TAYLOR MD Nov 02, 2016 15:35
[2016-11-02] MEDS: LIDOCAINE (700MG/PATCH) PATCH. TD SCH (17:47)
[2016-11-02] MEDS ORDERED: VANCOMYCIN 1.75 GM in IV NORMAL SALINE 500ML BAG 500 ML IV ONE (18:30)
[2016-11-02] MEDS: VANCOMYCIN PER PHARMACY MC PRN (18:31)
[2016-11-02] MEDS: PIPERACILLIN/TAZOBACTAM 2.25 GM in IV NORMAL SALINE 50ML 50 ML IV SCH ×2 (19:46→23:38)
[2016-11-02] MEDS: ATORVASTATIN CALCIUM 20 MG TABLET PO SCH (21:13)
[2016-11-02] MEDS: OLANZAPINE 5 MG TABLET. PO SCH (21:13)
[2016-11-03] MEDS: ALPRAZOLAM 0.5 MG TABLET PO PRN ×2 (02:29→11:35)
[2016-11-03] MEDS: DIPHENHYDRAMINE HCL 25 MG CAPSULE PO PRN ×2 (02:29→15:42)
[2016-11-03] MEDS: HYDROCODONE/APAP 5/325MG TABLET. PO PRN ×3 (02:30→19:07)
[2016-11-03 05:19] LABS: BASO % 1 % (0-3); EOS % 2 % (0-3); HEMATOCRIT 22.4 % (36.0-47.0); HEMOGLOBIN 7.4 g/dL (12.0-15.5); LYMPH # 1.1 x10^3/uL (1.0-4.8); LYMPH % 22 % (24-48); MEAN CORPUSCULAR HEMOGLOBIN 28 pg (25-35); MEAN CORPUSCULAR HGB CONC 33 g/dL (31-37); MEAN CORPUSCULAR VOLUME 86 fL (79-100); MONO % 19 % (0-9); NEUT % 56 % (31-73); PLATELET COUNT 119 x10^3/uL (140-400); RED CELL DISTRIBUTION WIDTH 16.3 % (11.5-14.5); WHITE BLOOD COUNT 5.1 x10^3/uL (4.0-11.0)
[2016-11-03 05:40] LABS: ALBUMIN 2.3 g/dL (3.4-5.0); CALCIUM 8.6 mg/dL (8.5-10.1); CREATININE 5.1 mg/dL (0.6-1.0); GFR 10.7; PHOSPHORUS 2.6 mg/dL (2.6-4.7); POTASSIUM 3.9 mmol/L (3.5-5.1)
[2016-11-03] MEDS: HEPARIN PF for SUB-Q USE 5,000 UNIT/0.5 ML VIAL. SQ SCH ×3 (05:47→21:44)
[2016-11-03] MEDS: LEVOTHYROXINE 125 MCG TABLET PO SCH (05:47)
[2016-11-03] MEDS: PIPERACILLIN/TAZOBACTAM 2.25 GM in IV NORMAL SALINE 50ML 50 ML IV SCH ×3 (05:47→21:42)
[2016-11-03 07:00] VITALS: BP 151/67
[2016-11-03 07:33] LABS: % EOS 3 % (0-5)
[2016-11-03 07:34] LABS: ANISOCYTOSIS PRESENT; PLT ESTIMATE DECREASED (ADEQUATE)
[2016-11-03] MEDS: CALCIUM ACETATE 667 MG CAPSULE PO SCH ×3 (08:31→19:07)
[2016-11-03] MEDS: DOCUSATE SODIUM 100 MG CAPSULE PO SCH (08:31)
[2016-11-03] MEDS: SERTRALINE 50 MG TABLET. PO SCH (08:32)
[2016-11-03] MEDS: DIVALPROEX DELAYED RELEASE 250 MG TABLET.DR. PO SCH ×3 (08:32→21:41)
[2016-11-03] MEDS: CARVEDILOL 12.5 MG TABLET PO SCH ×2 (08:33→19:06)
[2016-11-03] MEDS: risperiDONE 1 MG TABLET. PO SCH (08:33)
[2016-11-03] MEDS: PANTOPRAZOLE 40 MG TABLET. PO SCH (08:33)
[2016-11-03] MEDS: SEVELAMER CARBONATE 800 MG TABLET. PO SCH ×3 (08:34→19:06)
[2016-11-03] MEDS: GABAPENTIN 300 MG CAPSULE. PO SCH (08:34)
[2016-11-03] MEDS: HYDRALAZINE 50 MG TABLET PO SCH ×4 (08:35→21:41)
[2016-11-03] MEDS: AMLODIPINE BESYLATE 10 MG TABLET PO SCH (08:35)
[2016-11-03] MEDS: lamoTRIgine 25 MG TABLET. PO SCH (08:35)
[2016-11-03] MEDS: NICOTINE 21MG PATCH. TD SCH (08:36)
[2016-11-03] MEDS: FERROUS SULFATE ORAL 300 MG/5 ML SOLUTION. PO SCH (08:36)
[2016-11-03] MEDS: POLYETHYLENE GLYCOL 3350 17 GM PACKET. PO SCH (08:37)
[2016-11-03] MEDS: LIDOCAINE (700MG/PATCH) PATCH. TD SCH (08:38)
[2016-11-03] MEDS: IRON SUCROSE COMPLEX 200 MG in IV NORMAL SALINE 100ML 100 ML IV SCH (09:13)
--- NOTE | 2016-11-03 10:30 | PDOC ---
SUBJECTIVE ROS ESRD c/o Subj SOB today CVS: no Orthopnea, no CP RESP: min SOB, no SAMPSON GI: no Nausea, no Vomiting : no Dysuria, no Urgency OBJECTIVE Vital Signs Vital Signs Date Time Temp Pulse Resp B/P Pulse Ox O2 Delivery O2 Flow Rate FiO2 11/03/16 08:35 72 151/67 11/03/16 07:00 98.7 18 96 Room Air 98.7 I & 0 Intake and Output 11/03/16 07:00 Intake Total 1375 ml Balance 1375 ml Intake Oral 1300 ml Blood Product IV Normal Saline Flush 75 ml PHYSICAL EXAM Physical Exam GEN: Awake, Oriented x 3, In no distress EYES: Vision Unchanged, Conjunctiva Normal EN: No EN Drainage, Mucous Membranes moist NECK: no JVD, no JVP, Supple, no Thyromegaly CVS: S1S2, + Murmur, No Gallop, No Rub,no Edema RESP: no Rales, no Rhonchi,no Acc. Muscle Use GI: BS + ve, NO Bruit, Non Tender, Non Distended : no CVA tenderness, no Suprapubic Tenderness DIAGNOSIS/ASSESSMENT Assessment & Plan ESRD: Pt with subj SOB and wishes to have HD today. Dialysis as below F 180 NR 3.0 Hrs 3 K 2.5 Ca 140 Na 30 HC03 Qb 350 + Qd 500+ Heparin 0 Units Uf 3-4 Kgs or to dry weight as tolerated May give 25-50 gms of 25% Albumin if needed to maintain Hemodynamic stability Treatment plan reviewed and discussed with lobby concierge ANEMIA; Aranesp as ordered, Transfuse with next HD as needed if hgb < 7 HTN: reval after Uf on HD. Current BP meds as reviewed. See orders for changes. Low Mag - IV Mag as ordered Discussed Plan of Care with pt at bedside Problems: COMMENT/RELEVANT DATA Meds Current Medications Medications (Trade) Dose Ordered Sig/Zayda Start Time Stop Time Status Last Admin Dose Admin Acetaminophen (Tylenol) 500 mg 1X PRN PRN 11/02/16 07:45 11/03/16 07:44 DC Acetaminophen/ Hydrocodone Bitart (Lortab 5/325) 1 tab PRN Q4HRS PRN 10/30/16 19:30 11/03/16 02:30 1 TAB Albumin Human (Albuminar) 200 ml @ 200 mls/hr 1X PRN PRN 10/31/16 17:00 10/31/16 22:59 DC Alprazolam (Xanax) 0.5 mg PRN Q8HRS PRN 10/30/16 19:30 11/03/16 02:29 0.5 MG Amlodipine Besylate (Norvasc) 10 mg DAILY 10/31/16 09:00 11/03/16 08:35 10 MG Aspirin (Children'S Aspirin) 324 mg 1X ONCE 10/30/16 17:00 10/30/16 17:01 DC 10/30/16 17:05 324 MG Atorvastatin Calcium (Lipitor) 20 mg QHS 10/30/16 22:00 11/02/16 21:13 20 MG Calcium Acetate (Phoslo) 667 mg TIDWMEALS 10/31/16 08:00 10/31/16 10:52 DC 10/31/16 08:43 667 MG Calcium Acetate 2001 mg 2,001 mg TIDWMEALS 10/31/16 12:00 11/03/16 08:31 2,001 MG Calcium Carbonate/ Glycine (Tums) 500 mg PRN AFTMEALHC PRN 11/02/16 15:15 Carvedilol (Coreg) 12.5 mg BIDWMEALS 10/31/16 08:00 11/03/16 08:33 12.5 MG Diphenhydramine HCl (Benadryl) 25 mg PRN Q6HRS PRN 11/03/16 02:00 11/03/16 02:29 25 MG Divalproex Sodium (Depakote) 250 mg TID 10/30/16 21:00 11/03/16 08:32 250 MG Docusate Sodium (Colace) 100 mg DAILY 11/01/16 09:00 11/03/16 08:31 100 MG Fentanyl Citrate (Fentanyl 2ml Vial) 50 mcg 1X ONCE 11/01/16 11:15 11/01/16 11:16 DC 11/01/16 11:14 50 MCG Ferrous Sulfate 300 mg BIDWMEALS 10/31/16 10:00 11/03/16 08:36 300 MG Gabapentin (Neurontin) 300 mg DAILY 10/31/16 09:00 11/03/16 08:34 300 MG Heparin Sodium (Porcine) 5,000 unit Q8HRS 10/30/16 22:00 11/02/16 14:00 5,000 UNIT Hydralazine HCl (Apresoline) 10 mg PRN Q5MIN PRN 10/30/16 19:45 Info (PHARMACY MONITORING -- do not chart) 1 each PRN DAILY PRN 11/02/16 07:45 11/02/16 07:51 DC Iron Sucrose/ Sodium Chloride (Venofer/Iv Sodium Chloride 0.9% 100ml) 110 ml @ 55 mls/hr 3X/WEEK 11/01/16 09:00 11/10/16 10:59 11/03/16 09:13 55 MLS/HR Labetalol HCl 10 mg 10 mg PRN Q1HR PRN 11/02/16 07:45 11/03/16 07:44 DC Lamotrigine (LaMICtal) 25 mg DAILY 10/31/16 09:00 11/03/16 08:35 25 MG Levothyroxine Sodium (Synthroid) 125 mcg DAILY07 10/31/16 07:00 11/03/16 05:47 125 MCG Lidocaine (Lidoderm) 1 patch DAILY 11/02/16 15:45 11/03/16 08:38 1 PATCH Magnesium Sulfate/ Dextrose 50 ml @ 25 mls/hr PRN DAILY PRN 10/31/16 10:45 Nicotine (Nicoderm Cq 21mg) 1 patch DAILY 10/31/16 09:00 11/03/16 08:36 1 PATCH Non-Formulary Medication 1 tab PRN BID PRN 10/30/16 19:30 10/30/16 19:34 DC Olanzapine (Zyprexa) 10 mg QHS 10/30/16 21:30 11/02/16 21:13 10 MG Ondansetron HCl (Zofran) 4 mg PRN Q6HRS PRN 10/30/16 19:30 Pantoprazole Sodium (Protonix) 40 mg DAILYAC 10/31/16 07:30 11/03/16 08:33 40 MG Piperacillin Sod/ Tazobactam Sod 2.25 gm/Sodium Chloride 50 ml @ 100 mls/hr Q8HRS 11/02/16 18:30 11/03/16 05:47 100 MLS/HR Polyethylene Glycol (miraLAX PACKET) 17 gm PRN DAILY PRN 10/31/16 10:45 Polyethylene Glycol 17 gm 17 gm DAILY 10/31/16 12:00 11/03/16 08:37 17 GM Risperidone (Risperdal) 4 mg DAILY 10/31/16 09:00 11/03/16 08:33 4 MG Sertraline HCl (Zoloft) 200 mg DAILY 10/31/16 09:00 11/03/16 08:32 200 MG Sevelamer Carbonate (Renvela) 800 mg TIDWMEALS 10/31/16 08:00 11/03/16 08:34 800 MG Sodium Chloride (Iv Sodium Chloride 0.9% 1000ml Bag) 1,000 ml @ 400 mls/hr Q2H30M PRN 11/02/16 07:39 11/02/16 19:38 DC Vancomycin HCl 1 each 1X ONCE 11/04/16 06:00 11/04/16 06:01 Vancomycin HCl 1 each 1 each PRN DAILY PRN 11/02/16 18:30 11/02/16 18:31 1 EACH Vancomycin HCl/ Sodium Chloride (Iv Sodium Chloride 0.9% 500ml Bag) 500 ml @ 250 mls/hr 1X ONCE 11/02/16 18:30 11/02/16 20:29 DC 11/02/16 21:12 250 MLS/HR Lab Laboratory Tests Test 11/03/16 04:30 White Blood Count 5.1x10^3/uL (4.0-11.0) Red Blood Count 2.60x10^6/uL (3.50-5.40) Hemoglobin 7.4g/dL (12.0-15.5) Hematocrit 22.4% (36.0-47.0) Mean Corpuscular Volume 86fL (79-100) Mean Corpuscular Hemoglobin 28pg (25-35) Mean Corpuscular Hemoglobin Concent 33g/dL (31-37) Red Cell Distribution Width 16.3% (11.5-14.5) Platelet Count 119x10^3/uL (140-400) Neutrophils (%) (Auto) 56% (31-73) Lymphocytes (%) (Auto) 22% (24-48) Monocytes (%) (Auto) 19% (0-9) Eosinophils (%) (Auto) 2% (0-3) Basophils (%) (Auto) 1% (0-3) Neutrophils # (Auto) 2.9x10^3uL (1.8-7.7) Lymphocytes # (Auto) 1.1x10^3/uL (1.0-4.8) Monocytes # (Auto) 1.0x10^3/uL (0.0-1.1) Eosinophils # (Auto) 0.1x10^3/uL (0.0-0.7) Basophils # (Auto) 0.0x10^3/uL (0.0-0.2) Segmented Neutrophils % 58% (35-66) Lymphocytes % 25% (24-48) Monocytes % 14% (0-10) Eosinophils % 3% (0-5) Platelet Estimate Decreased (ADEQUATE) Anisocytosis Present Sodium Level 140mmol/L (136-145) Potassium Level 3.9mmol/L (3.5-5.1) Chloride Level 102mmol/L (98-107) Carbon Dioxide Level 31mmol/L (21-32) Anion Gap 7 (6-14) Blood Urea Nitrogen 59mg/dL (7-20) Creatinine 5.1mg/dL (0.6-1.0) Estimated GFR (Cockcroft-Gault) 10.7 Glucose Level 207mg/dL (70-99) Calcium Level 8.6mg/dL (8.5-10.1) Phosphorus Level 2.6mg/dL (2.6-4.7) Magnesium Level 1.6mg/dL (1.8-2.4) Albumin 2.3g/dL (3.4-5.0) SHYANNE TYLER MD Nov 03, 2016 10:30
--- NOTE | 2016-11-03 10:52 | PDOC ---
Infectious Disease Note Subjective Subjective feeling ok ROS ROS GEN: Denies fevers, chills, sweats HEENT: Denies blurred vision, sore throat CV: Denies chest pain RESP: Denies shortness of air, cough GI: Denies n/v/d NEURO: Denies confusion, dizziness MSK: Denies weakness, joint pain/swelling Vital Sign Vital Signs Vital Signs Date Time Temp Pulse Resp B/P Pulse Ox O2 Delivery O2 Flow Rate FiO2 11/03/16 08:35 72 151/67 11/03/16 08:00 Room Air 11/03/16 07:00 98.7 18 96 98.7 Physical Exam PHYSICAL EXAM GENERAL: NAD, Alert HEENT: PERRL, OC/OP NECK: Supple, no JVD, no LN LUNGS: Clear HEART: S1S2, no gallop, no murmur ABD: Soft, NT, no organomegaly, no rebound EXT: No edema, no cyanosis NITROCELLULOSE MAKER: Alert, oriented x 3, no focal neurologic deficit SKIN: No rash IV: ok Labs Lab Laboratory Tests Test 11/03/16 04:30 White Blood Count 5.1x10^3/uL (4.0-11.0) Red Blood Count 2.60x10^6/uL (3.50-5.40) Hemoglobin 7.4g/dL (12.0-15.5) Hematocrit 22.4% (36.0-47.0) Mean Corpuscular Volume 86fL (79-100) Mean Corpuscular Hemoglobin 28pg (25-35) Mean Corpuscular Hemoglobin Concent 33g/dL (31-37) Red Cell Distribution Width 16.3% (11.5-14.5) Platelet Count 119x10^3/uL (140-400) Neutrophils (%) (Auto) 56% (31-73) Lymphocytes (%) (Auto) 22% (24-48) Monocytes (%) (Auto) 19% (0-9) Eosinophils (%) (Auto) 2% (0-3) Basophils (%) (Auto) 1% (0-3) Neutrophils # (Auto) 2.9x10^3uL (1.8-7.7) Lymphocytes # (Auto) 1.1x10^3/uL (1.0-4.8) Monocytes # (Auto) 1.0x10^3/uL (0.0-1.1) Eosinophils # (Auto) 0.1x10^3/uL (0.0-0.7) Basophils # (Auto) 0.0x10^3/uL (0.0-0.2) Segmented Neutrophils % 58% (35-66) Lymphocytes % 25% (24-48) Monocytes % 14% (0-10) Eosinophils % 3% (0-5) Platelet Estimate Decreased (ADEQUATE) Anisocytosis Present Sodium Level 140mmol/L (136-145) Potassium Level 3.9mmol/L (3.5-5.1) Chloride Level 102mmol/L (98-107) Carbon Dioxide Level 31mmol/L (21-32) Anion Gap 7 (6-14) Blood Urea Nitrogen 59mg/dL (7-20) Creatinine 5.1mg/dL (0.6-1.0) Estimated GFR (Cockcroft-Gault) 10.7 Glucose Level 207mg/dL (70-99) Calcium Level 8.6mg/dL (8.5-10.1) Phosphorus Level 2.6mg/dL (2.6-4.7) Magnesium Level 1.6mg/dL (1.8-2.4) Albumin 2.3g/dL (3.4-5.0) Objective Assessment Fever Left flank/groin pain ESRD Homeless Plan Plan of Care culture vanc and byronn supportive care JULIA TYLER MD Nov 03, 2016 10:52
[2016-11-03 11:06] VITALS: BP 145/69
[2016-11-03] MEDS: VANCOMYCIN PER PHARMACY MC PRN (12:14)
--- NOTE | 2016-11-03 12:50 | PDOC ---
Subjective: Subjective: "I'm in pain." Left hip/leg. Worse w/ movement. Eating okay. No bleeding. Asks for pain meds. Objective: Vital Signs: Vital Signs Date Time Temp Pulse Resp B/P Pulse Ox O2 Delivery O2 Flow Rate FiO2 11/03/16 11:36 Room Air 11/03/16 11:06 98.2 67 18 145/69 100 98.2 Labs: Laboratory Tests Test 11/03/16 04:30 White Blood Count 5.1x10^3/uL Red Blood Count 2.60x10^6/uL Hemoglobin 7.4g/dL Hematocrit 22.4% Mean Corpuscular Volume 86fL Mean Corpuscular Hemoglobin 28pg Mean Corpuscular Hemoglobin Concent 33g/dL Red Cell Distribution Width 16.3% Platelet Count 119x10^3/uL Neutrophils (%) (Auto) 56% Lymphocytes (%) (Auto) 22% Monocytes (%) (Auto) 19% Eosinophils (%) (Auto) 2% Basophils (%) (Auto) 1% Neutrophils # (Auto) 2.9x10^3uL Lymphocytes # (Auto) 1.1x10^3/uL Monocytes # (Auto) 1.0x10^3/uL Eosinophils # (Auto) 0.1x10^3/uL Basophils # (Auto) 0.0x10^3/uL Segmented Neutrophils % 58% Lymphocytes % 25% Monocytes % 14% Eosinophils % 3% Platelet Estimate Decreased Anisocytosis Present Sodium Level 140mmol/L Potassium Level 3.9mmol/L Chloride Level 102mmol/L Carbon Dioxide Level 31mmol/L Anion Gap 7 Blood Urea Nitrogen 59mg/dL Creatinine 5.1mg/dL Estimated GFR (Cockcroft-Gault) 10.7 Glucose Level 207mg/dL Calcium Level 8.6mg/dL Phosphorus Level 2.6mg/dL Magnesium Level 1.6mg/dL Albumin 2.3g/dL PE: GEN: NAd LUNGS: CTAB HEART: RRR ABD: NABS, S/ND/NT NEURO/PSYCH: A & O 3 A/P: HAYES -Hgb improved s/p transfusions -colonoscopy 2007 w/ internal hemorrhoids -ESRD on HD, also h/o Hep C GERD, h/o PUD, h/o duodenal angioma -s/p cautery/EGD last week @ [facility] -on PPI, iron -- Continue same per GI. ARNAUD KITCHEN Nov 03, 2016 12:50
--- NOTE | 2016-11-03 12:51 | PDOC ---
PROGRESS NOTES Chief Complaint Chief Complaint anemia, recurrent 1. abd pain, acute on chronic 2. ESRD on HD 3. Type 2 diabetes 4. High cholesterol 5. Hypertension 6. Hypothyroidism 7. Hepatitis C 8. h/o multisubstance Abuse 9. Chronic back and hip pain 10. acute on chronic anemia, with ESRD, recent GIB 11. NON compliance 12. H/O Schizophrenia, suicidal idea 13. Homelessness 14. constipation History of Present Illness History of Present Illness hgb better today, up 1 g/dl, 2 u given yesterday pain present but stable, LLQ out and trying to eat (items off renal diet) and trying to get out to smoke no change Vitals Vitals Vital Signs Date Time Temp Pulse Resp B/P Pulse Ox O2 Delivery O2 Flow Rate FiO2 11/03/16 11:36 Room Air 11/03/16 11:06 98.2 67 18 145/69 100 98.2 Physical Exam General: Alert, Oriented X3, Cooperative, No acute distress Heart: Regular rate Lungs: Clear Abdomen: Normal bowel sounds, Soft, No tenderness, Other (pain not worsened unless she uses her abd muscles) Extremities: No clubbing Skin: No rashes, No significant lesion Labs LABS Laboratory Tests Test 11/03/16 04:30 White Blood Count 5.1x10^3/uL (4.0-11.0) Red Blood Count 2.60x10^6/uL (3.50-5.40) Hemoglobin 7.4g/dL (12.0-15.5) Hematocrit 22.4% (36.0-47.0) Mean Corpuscular Volume 86fL (79-100) Mean Corpuscular Hemoglobin 28pg (25-35) Mean Corpuscular Hemoglobin Concent 33g/dL (31-37) Red Cell Distribution Width 16.3% (11.5-14.5) Platelet Count 119x10^3/uL (140-400) Neutrophils (%) (Auto) 56% (31-73) Lymphocytes (%) (Auto) 22% (24-48) Monocytes (%) (Auto) 19% (0-9) Eosinophils (%) (Auto) 2% (0-3) Basophils (%) (Auto) 1% (0-3) Neutrophils # (Auto) 2.9x10^3uL (1.8-7.7) Lymphocytes # (Auto) 1.1x10^3/uL (1.0-4.8) Monocytes # (Auto) 1.0x10^3/uL (0.0-1.1) Eosinophils # (Auto) 0.1x10^3/uL (0.0-0.7) Basophils # (Auto) 0.0x10^3/uL (0.0-0.2) Segmented Neutrophils % 58% (35-66) Lymphocytes % 25% (24-48) Monocytes % 14% (0-10) Eosinophils % 3% (0-5) Platelet Estimate Decreased (ADEQUATE) Anisocytosis Present Sodium Level 140mmol/L (136-145) Potassium Level 3.9mmol/L (3.5-5.1) Chloride Level 102mmol/L (98-107) Carbon Dioxide Level 31mmol/L (21-32) Anion Gap 7 (6-14) Blood Urea Nitrogen 59mg/dL (7-20) Creatinine 5.1mg/dL (0.6-1.0) Estimated GFR (Cockcroft-Gault) 10.7 Glucose Level 207mg/dL (70-99) Calcium Level 8.6mg/dL (8.5-10.1) Phosphorus Level 2.6mg/dL (2.6-4.7) Magnesium Level 1.6mg/dL (1.8-2.4) Albumin 2.3g/dL (3.4-5.0) Review of Systems Review of Systems nausea left lower abd pain no stool Assessment and Plan Assessmemt and Plan Problems Medical Problems: (1) Abdominal pain Status: Acute (2) ESRD (end stage renal disease) Status: Acute Problems: Comment Review of Relevant I have reviewed the following items hemal (where applicable) has been applied. Labs Laboratory Tests Test 11/02/16 03:30 11/02/16 09:55 11/03/16 04:30 Sodium Level 141mmol/L (136-145) 140mmol/L (136-145) Potassium Level 4.6mmol/L (3.5-5.1) 3.9mmol/L (3.5-5.1) Chloride Level 102mmol/L (98-107) 102mmol/L (98-107) Carbon Dioxide Level 29mmol/L (21-32) 31mmol/L (21-32) Anion Gap 10 (6-14) 7 (6-14) Blood Urea Nitrogen 73mg/dL (7-20) 59mg/dL (7-20) Creatinine 7.7mg/dL (0.6-1.0) 5.1mg/dL (0.6-1.0) Estimated GFR (Cockcroft-Gault) 6.6 10.7 Glucose Level 114mg/dL (70-99) 207mg/dL (70-99) Calcium Level 8.7mg/dL (8.5-10.1) 8.6mg/dL (8.5-10.1) Phosphorus Level 4.0mg/dL (2.6-4.7) 2.6mg/dL (2.6-4.7) Magnesium Level 1.8mg/dL (1.8-2.4) 1.6mg/dL (1.8-2.4) Albumin 2.4g/dL (3.4-5.0) 2.3g/dL (3.4-5.0) Hemoglobin 6.4g/dL (12.0-15.5) 7.4g/dL (12.0-15.5) White Blood Count 5.1x10^3/uL (4.0-11.0) Red Blood Count 2.60x10^6/uL (3.50-5.40) Hematocrit 22.4% (36.0-47.0) Mean Corpuscular Volume 86fL (79-100) Mean Corpuscular Hemoglobin 28pg (25-35) Mean Corpuscular Hemoglobin Concent 33g/dL (31-37) Red Cell Distribution Width 16.3% (11.5-14.5) Platelet Count 119x10^3/uL (140-400) Neutrophils (%) (Auto) 56% (31-73) Lymphocytes (%) (Auto) 22% (24-48) Monocytes (%) (Auto) 19% (0-9) Eosinophils (%) (Auto) 2% (0-3) Basophils (%) (Auto) 1% (0-3) Neutrophils # (Auto) 2.9x10^3uL (1.8-7.7) Lymphocytes # (Auto) 1.1x10^3/uL (1.0-4.8) Monocytes # (Auto) 1.0x10^3/uL (0.0-1.1) Eosinophils # (Auto) 0.1x10^3/uL (0.0-0.7) Basophils # (Auto) 0.0x10^3/uL (0.0-0.2) Segmented Neutrophils % 58% (35-66) Lymphocytes % 25% (24-48) Monocytes % 14% (0-10) Eosinophils % 3% (0-5) Platelet Estimate Decreased (ADEQUATE) Anisocytosis Present Laboratory Tests Test 11/03/16 04:30 White Blood Count 5.1x10^3/uL (4.0-11.0) Red Blood Count 2.60x10^6/uL (3.50-5.40) Hemoglobin 7.4g/dL (12.0-15.5) Hematocrit 22.4% (36.0-47.0) Mean Corpuscular Volume 86fL (79-100) Mean Corpuscular Hemoglobin 28pg (25-35) Mean Corpuscular Hemoglobin Concent 33g/dL (31-37) Red Cell Distribution Width 16.3% (11.5-14.5) Platelet Count 119x10^3/uL (140-400) Neutrophils (%) (Auto) 56% (31-73) Lymphocytes (%) (Auto) 22% (24-48) Monocytes (%) (Auto) 19% (0-9) Eosinophils (%) (Auto) 2% (0-3) Basophils (%) (Auto) 1% (0-3) Neutrophils # (Auto) 2.9x10^3uL (1.8-7.7) Lymphocytes # (Auto) 1.1x10^3/uL (1.0-4.8) Monocytes # (Auto) 1.0x10^3/uL (0.0-1.1) Eosinophils # (Auto) 0.1x10^3/uL (0.0-0.7) Basophils # (Auto) 0.0x10^3/uL (0.0-0.2) Segmented Neutrophils % 58% (35-66) Lymphocytes % 25% (24-48) Monocytes % 14% (0-10) Eosinophils % 3% (0-5) Platelet Estimate Decreased (ADEQUATE) Anisocytosis Present Sodium Level 140mmol/L (136-145) Potassium Level 3.9mmol/L (3.5-5.1) Chloride Level 102mmol/L (98-107) Carbon Dioxide Level 31mmol/L (21-32) Anion Gap 7 (6-14) Blood Urea Nitrogen 59mg/dL (7-20) Creatinine 5.1mg/dL (0.6-1.0) Estimated GFR (Cockcroft-Gault) 10.7 Glucose Level 207mg/dL (70-99) Calcium Level 8.6mg/dL (8.5-10.1) Phosphorus Level 2.6mg/dL (2.6-4.7) Magnesium Level 1.6mg/dL (1.8-2.4) Albumin 2.3g/dL (3.4-5.0) Microbiology 11/02/16 Blood Culture - Preliminary, Resulted NO GROWTH AFTER 1 DAY 10/30/16 Urine Culture - Final, Complete 10/30/16 Urine Culture Result 1 (CHRISTOPH) - Final, Complete 10/30/16 Urine Culture Result 2 (CHRISTOPH) - Final, Complete Medications Current Medications Aspirin (Children'S Aspirin) 324 mg 1X ONCE PO Last administered on 10/30/16 17:05; Start 10/30/16 at 17:00; Stop 10/30/16 at 17:01; Status DC Alprazolam (Xanax) 0.5 mg PRN Q8HRS PRN PO ANXIETY / AGITATION Last administered on 11/03/16 11:35; Start 10/30/16 at 19:30 Amlodipine Besylate (Norvasc) 10 mg DAILY PO Last administered on 11/03/16 08: 35; Start 10/31/16 at 09:00 Calcium Acetate (Phoslo) 667 mg TIDWMEALS PO Last administered on 10/31/16 08: 43; Start 10/31/16 at 08:00; Stop 10/31/16 at 10:52; Status DC Carvedilol (Coreg) 12.5 mg BIDWMEALS PO Last administered on 11/03/16 08:33; Start 10/31/16 at 08:00 Divalproex Sodium (Depakote) 250 mg TID PO Last administered on 11/03/16 08:32 ; Start 10/30/16 at 21:00 Gabapentin (Neurontin) 300 mg DAILY PO Last administered on 11/03/16 08:34; Start 10/31/16 at 09:00 Hydralazine HCl (Apresoline) 50 mg QID PO Last administered on 11/03/16 08:35 ; Start 10/30/16 at 21:00 Lamotrigine (LaMICtal) 25 mg DAILY PO Last administered on 11/03/16 08:35; Start 10/31/16 at 09:00 Levothyroxine Sodium (Synthroid) 125 mcg DAILY07 PO Last administered on 05:47; Start 10/31/16 at 07:00 Nicotine (Nicoderm Cq 21mg) 1 patch DAILY TD Last administered on 11/03/16 08: 36; Start 10/31/16 at 09:00 Atorvastatin Calcium (Lipitor) 20 mg QHS PO Last administered on 11/02/16 21: 13; Start 10/30/16 at 22:00 Olanzapine (Zyprexa) 10 mg QHS PO Last administered on 11/02/16 21:13; Start 10/30/16 at 21:30 Non-Formulary Medication 1 tab PRN BID PRN PO Severe pain; Start 10/30/16 at 19 :30; Stop 10/30/16 at 19:34; Status DC Risperidone (Risperdal) 4 mg DAILY PO Last administered on 11/03/16 08:33; Start 10/31/16 at 09:00 Sertraline HCl (Zoloft) 200 mg DAILY PO Last administered on 11/03/16 08:32; Start 10/31/16 at 09:00 Sevelamer Carbonate (Renvela) 800 mg TIDWMEALS PO Last administered on 11:35; Start 10/31/16 at 08:00 Ondansetron HCl (Zofran) 4 mg PRN Q6HRS PRN IV NAUSEA/VOMITING; Start 10/30/16 at 19:30 Acetaminophen/ Hydrocodone Bitart (Lortab 5/325) 1 tab PRN Q4HRS PRN PO MILD PAIN Last administered on 11/03/16 11:36; Start 10/30/16 at 19:30 Acetaminophen (Tylenol) 650 mg PRN Q6HRS PRN PO MILD PAIN / TEMP; Start at 19:30; Status UNV Heparin Sodium (Porcine) 5,000 unit Q8HRS SQ Last administered on 11/02/16 14: 00; Start 10/30/16 at 22:00 Acetaminophen (Tylenol) 650 mg PRN Q6HRS PRN PO FEVER Last administered on 11/02 18:08; Start 10/30/16 at 19:45 Hydralazine HCl (Apresoline) 10 mg PRN Q5MIN PRN IVP ELEVATED BP, SEE COMMENTS ; Start 10/30/16 at 19:45 Pantoprazole Sodium (Protonix) 40 mg DAILYAC PO Last administered on 11/03/16 08:33; Start 10/31/16 at 07:30 Ferrous Sulfate 300 mg BIDWMEALS PO Last administered on 11/03/16 08:36; Start 10/31/16 at 10:00; Stop 11/03/16 at 10:32; Status DC Polyethylene Glycol 17 gm 17 gm DAILY PO Last administered on 11/03/16 08:37; Start 10/31/16 at 12:00 Magnesium Sulfate/ Dextrose 50 ml @ 25 mls/hr PRN DAILY PRN IV for Mag < 1.7 on am labs; Start 10/31/16 at 10:45 Iron Sucrose/ Sodium Chloride (Venofer/Iv Sodium Chloride 0.9% 100ml) 110 ml @ 55 mls/hr 3X/WEEK IV Last administered on 11/03/16 09:13; Start 11/01/16 at 09 :00; Stop 11/10/16 at 10:59 Polyethylene Glycol (miraLAX PACKET) 17 gm PRN DAILY PRN PO CONSTIPATION; Start 10/31/16 at 10:45 Calcium Acetate 2001 mg 2,001 mg TIDWMEALS PO Last administered on 11/03/16 11 :36; Start 10/31/16 at 12:00 Sodium Chloride 1,000 ml @ 1,000 mls/hr Q1H PRN IV hypotension; Start 10/31/16 at 16:46; Stop 10/31/16 at 22:45; Status DC Albumin Human (Albuminar) 200 ml @ 200 mls/hr 1X PRN PRN IV Hypotension; Start 10/31/16 at 17:00; Stop 10/31/16 at 22:59; Status DC Acetaminophen (Tylenol) 500 mg 1X PRN PRN PO MILD PAIN / TEMP; Start 10/31/16 at 17:00; Stop 11/01/16 at 16:59; Status DC Diphenhydramine HCl (Benadryl) 25 mg 1X PRN PRN IV ITCHING; Start 10/31/16 at 17:00; Stop 11/01/16 at 16:59; Status DC Diphenhydramine HCl 25 mg 25 mg 1X PRN PRN IV ITCHING; Start 10/31/16 at 17:00 ; Stop 11/01/16 at 16:59; Status DC Sodium Chloride (Iv Sodium Chloride 0.9% 1000ml Bag) 1,000 ml @ 400 mls/hr Q2H30M PRN IV PATENCY; Start 10/31/16 at 16:46; Stop 11/01/16 at 04:45; Status DC Info (PHARMACY MONITORING -- do not chart) 1 each PRN DAILY PRN MC SEE COMMENTS ; Start 10/31/16 at 17:00 Docusate Sodium (Colace) 100 mg DAILY PO Last administered on 11/03/16 08:31; Start 11/01/16 at 09:00 Fentanyl Citrate 50 mcg 50 mcg 1X ONCE IV Last administered on 11/01/16 11:14 ; Start 11/01/16 at 11:15; Stop 11/01/16 at 11:16; Status DC Sodium Chloride (Iv Sodium Chloride 0.9% 1000ml Bag) 1,000 ml @ 1,000 mls/hr Q1H PRN IV hypotension; Start 11/02/16 at 07:39; Stop 11/02/16 at 13:38; Status DC Acetaminophen (Tylenol) 500 mg 1X PRN PRN PO MILD PAIN / TEMP; Start 11/02/16 at 07:45; Stop 11/03/16 at 07:44; Status DC Diphenhydramine HCl (Benadryl) 25 mg 1X PRN PRN IV ITCHING Last administered on 11/02/16 15:55; Start 11/02/16 at 07:45; Stop 11/03/16 at 07:44; Status DC Diphenhydramine HCl (Benadryl) 25 mg 1X PRN PRN IV ITCHING Last administered on 11/02/16 08:41; Start 11/02/16 at 07:45; Stop 11/03/16 at 07:44; Status DC Labetalol HCl 10 mg 10 mg PRN Q1HR PRN IVP SBP > 180; Start 11/02/16 at 07:45; Stop 11/03/16 at 07:44; Status DC Sodium Chloride (Iv Sodium Chloride 0.9% 1000ml Bag) 1,000 ml @ 400 mls/hr Q2H30M PRN IV PATENCY; Start 11/02/16 at 07:39; Stop 11/02/16 at 19:38; Status DC Info (PHARMACY MONITORING -- do not chart) 1 each PRN DAILY PRN MC SEE COMMENTS ; Start 11/02/16 at 07:45; Stop 11/02/16 at 07:51; Status DC Calcium Carbonate/ Glycine (Tums) 500 mg PRN AFTMEALHC PRN PO INDIGESTION; Start 11/02/16 at 15:15 Lidocaine (Lidoderm) 1 patch DAILY TD Last administered on 11/03/16 08:38; Start 11/02/16 at 15:45 Vancomycin HCl 1 each 1 each PRN DAILY PRN MC SEE COMMENTS Last administered on 11/03/16 12:14; Start 11/02/16 at 18:30 Piperacillin Sod/ Tazobactam Sod 2.25 gm/Sodium Chloride 50 ml @ 100 mls/hr Q8HRS IV Last administered on 11/03/16 05:47; Start 11/02/16 at 18:30 Vancomycin HCl/ Sodium Chloride (Iv Sodium Chloride 0.9% 500ml Bag) 500 ml @ 250 mls/hr 1X ONCE IV Last administered on 11/02/16 21:12; Start 11/02/16 at 18:30; Stop 11/02/16 at 20:29; Status DC Vancomycin HCl 1 each 1X ONCE MC ; Start 11/04/16 at 06:00; Stop 11/04/16 at 06 :01 Diphenhydramine HCl (Benadryl) 25 mg PRN Q6HRS PRN PO ITCHING Last administered on 11/03/16 02:29; Start 11/03/16 at 02:00 Darbepoetin Sourav (Aranesp) 60 mcg WEEKLYHS SQ ; Start 11/03/16 at 21:00 Active Scripts Active Percocet 5-325 Mg Tablet (Oxycodone/Acetaminophen) 1 Each Tablet 1 Tab PO QID PRN Alprazolam 0.5 Mg Tablet 0.5 Mg PO Q8HRS PRN Oxycodone Hcl 10 Mg Tablet 1 Tab PO PRN BID PRN Olanzapine Odt (Olanzapine) 10 Mg Tab.rapdis 10 Mg PO QHS Lamotrigine 25 Mg Tablet 25 Mg PO DAILY 30 Days Zoloft (Sertraline Hcl) 100 Mg Tablet 200 Mg PO DAILY Risperidone 4 Mg Tablet 4 Mg PO DAILY Zofran Odt (Ondansetron) 4 Mg Tab.rapdis 1 Tab SL Q8HRS Reported NICODERM CQ 21mg (Nicotine) 1 Each Patch.td24 1 Patch TP DAILY Depakote (Divalproex Sodium) 250 Mg Tablet.dr 250 Mg PO TID Amlodipine Besylate 10 Mg Tablet 10 Mg PO DAILY Hydralazine Hcl 50 Mg Tablet 50 Mg PO QID Renagel (Sevelamer Hcl) 800 Mg Tablet 800 Mg PO TIDWMEALS Simvastatin 40 Mg Tablet 40 Mg PO HS Levothyroxine Sodium 125 Mcg Tablet 125 Mcg PO DAILYAC Gabapentin 300 Mg Capsule 300 Mg PO DAILY Phoslo (Calcium Acetate) 667 Mg Capsule 667 Mg PO TIDWMEALS Carvedilol 12.5 Mg Tablet 12.5 Mg PO BIDWMEALS Vitals/I & O Vital Sign - Last 24 Hours 11/02/16 11/02/16 11/02/16 11/02/16 14:30 14:43 14:43 14:44 Temp 99.3 99.3 Pulse 75 75 75 75 Resp 14 B/P 136/52 136/52 136/52 136/52 11/02/16 11/02/16 11/02/16 11/02/16 14:46 14:50 15:50 15:56 Temp 98.6 98.6 99.5 98.6 98.6 99.5 Pulse 68 71 74 Resp 16 16 18 B/P 124/55 124/55 155/47 Pulse Ox 99 O2 Delivery Room Air Room Air 11/02/16 11/02/16 11/02/16 11/02/16 16:52 17:40 17:46 17:47 Temp 99.7 98.8 99.7 98.8 Pulse 72 76 76 76 Resp 16 16 B/P 139/61 145/57 145/57 145/57 11/02/16 11/02/16 11/02/16 11/02/16 18:45 18:57 18:58 19:00 Temp 99.5 100.6 100.6 97.6 99.5 100.6 100.6 97.6 Pulse 77 72 72 73 Resp 16 16 16 18 B/P 152/66 147/57 147/57 146/67 Pulse Ox 98 O2 Delivery Room Air 11/02/16 11/02/16 11/02/16 11/02/16 20:00 20:00 21:00 21:13 Temp 99.8 99.6 99.8 99.6 Pulse 74 73 74 Resp 20 20 B/P 143/63 131/58 143/63 O2 Delivery Room Air 11/02/16 11/02/16 11/02/16 11/03/16 21:14 22:13 23:13 02:30 Temp 97.9 97.9 Pulse 72 Resp 20 18 18 B/P 159/70 Pulse Ox 98 96 96 O2 Delivery Room Air Room Air Room Air 11/03/16 11/03/16 11/03/16 11/03/16 03:12 04:49 07:00 08:00 Temp 98.7 98.7 Pulse 72 Resp 18 B/P 151/67 Pulse Ox 96 96 O2 Delivery Room Air Room Air Room Air Room Air 11/03/16 11/03/16 11/03/16 11/03/16 08:33 08:35 08:35 11:06 Temp 98.2 98.2 Pulse 72 72 72 67 Resp 18 B/P 151/67 151/67 151/67 145/69 Pulse Ox 100 O2 Delivery Room Air 11/03/16 11:36 O2 Delivery Room Air Intake and Output 11/02/16 11/02/16 11/03/16 15:00 23:00 07:00 Intake Total 420 ml 595 ml 360 ml Balance 420 ml 595 ml 360 ml BRAYAN TAYLOR MD Nov 03, 2016 12:51
[2016-11-03] MEDS: ONDANSETRON PF 4 MG/2 ML VIAL. IV PRN (15:00)
[2016-11-03 19:00] VITALS: BP 124/59
[2016-11-03] MEDS: OLANZAPINE 5 MG TABLET. PO SCH (21:40)
[2016-11-03] MEDS: ATORVASTATIN CALCIUM 20 MG TABLET PO SCH (21:41)
[2016-11-03] MEDS: DARBEPOETIN ALFA 60 MCG/0.3 ML DISP.SYRIN. SQ SCH (21:42)
[2016-11-03 22:41] VITALS: BP 121/63
[2016-11-04] VITALS (9 sets, daily range): BP systolic 121–162; BP diastolic 46–87
[2016-11-04] MEDS: ALPRAZOLAM 0.5 MG TABLET PO PRN ×3 (02:08→21:09)
[2016-11-04] MEDS: HYDROCODONE/APAP 5/325MG TABLET. PO PRN ×4 (02:09→18:10)
[2016-11-04 05:49] LABS: RED BLOOD COUNT 2.34 x10^6/uL (3.50-5.40); RED CELL DISTRIBUTION WIDTH 16.6 % (11.5-14.5); WHITE BLOOD COUNT 6.1 x10^3/uL (4.0-11.0)
[2016-11-04 05:59] LABS: HEMATOCRIT 19.9 % (36.0-47.0); HEMOGLOBIN 6.7 g/dL (12.0-15.5)
[2016-11-04 06:00] LABS: ALBUMIN 2.3 g/dL (3.4-5.0); CALCIUM 8.8 mg/dL (8.5-10.1); CREATININE 4.5 mg/dL (0.6-1.0); GFR 12.3; PHOSPHORUS 2.1 mg/dL (2.6-4.7)
[2016-11-04] MEDS ORDERED: VANCOMYCIN RANDOM LEVEL. MC ONE (06:00)
[2016-11-04 06:01] LABS: POTASSIUM 5.3 mmol/L (3.5-5.1)
[2016-11-04] MEDS: HEPARIN PF for SUB-Q USE 5,000 UNIT/0.5 ML VIAL. SQ SCH (06:17)
[2016-11-04] MEDS ORDERED: IV NORMAL SALINE 1000ML BAG 1,000 ML IV PRN (06:23)
[2016-11-04] MEDS ORDERED: CLONIDINE HCL 0.1 MG TABLET PO PRN (06:30)
[2016-11-04] MEDS ORDERED: DIPHENHYDRAMINE 50 MG/ML VIAL IV PRN ×2 (06:30)
[2016-11-04] MEDS ORDERED: ACETAMINOPHEN 500 MG TABLET PO PRN (06:30)
[2016-11-04] MEDS ORDERED: LABETALOL 20 MG/4 ML DISP.SYRIN. IVP PRN (06:30)
[2016-11-04] MEDS ORDERED: ALBUMIN HUMAN 25% 200 ML IV PRN (06:30)
[2016-11-04] MEDS ORDERED: DIALYSIS PATIENT. MC PRN (06:30)
[2016-11-04] MEDS: DOCUSATE SODIUM 100 MG CAPSULE PO SCH (09:00)
[2016-11-04] MEDS: CALCIUM ACETATE 667 MG CAPSULE PO SCH ×3 (11:01→17:13)
[2016-11-04] MEDS: CARVEDILOL 12.5 MG TABLET PO SCH ×2 (11:01→17:14)
[2016-11-04] MEDS: GABAPENTIN 300 MG CAPSULE. PO SCH (11:01)
[2016-11-04] MEDS: PANTOPRAZOLE 40 MG TABLET. PO SCH (11:02)
[2016-11-04] MEDS: SERTRALINE 50 MG TABLET. PO SCH (11:02)
[2016-11-04] MEDS: NICOTINE 21MG PATCH. TD SCH (11:03)
[2016-11-04] MEDS: HYDRALAZINE 50 MG TABLET PO SCH ×4 (11:03→21:15)
[2016-11-04] MEDS: risperiDONE 1 MG TABLET. PO SCH (11:04)
[2016-11-04] MEDS: LIDOCAINE (700MG/PATCH) PATCH. TD SCH (11:04)
[2016-11-04] MEDS: lamoTRIgine 25 MG TABLET. PO SCH (11:04)
[2016-11-04] MEDS: SEVELAMER CARBONATE 800 MG TABLET. PO SCH ×3 (11:04→17:13)
--- NOTE | 2016-11-04 11:04 | PDOC ---
PROGRESS NOTES Subjective Subjective SEEN IN FOLLOW UP OF ESRD Objective Objective Vital Signs Date Time Temp Pulse Resp B/P Pulse Ox O2 Delivery O2 Flow Rate FiO2 11/04/16 09:57 98 Room Air 11/04/16 08:52 98.3 65 18 146/78 98.3 Intake and Output 11/04/16 07:00 Intake Total 1265 ml Balance 1265 ml Intake Oral 1055 ml IV Total 210 ml Physical Exam Abdomen: Normal bowel sounds, Soft, No tenderness, No hepatosplenomegaly, No masses Heart: Regular rate, Normal S1, Normal S2, No murmurs, Gallops Extremities: No clubbing, No cyanosis, No edema, Normal pulses, No tenderness/ swelling General: Alert, Oriented X3, Cooperative, No acute distress Lungs: Clear to auscultation, Normal air movement Diagnosis RENAL FAILURE: ESRD Assessment Assessment Problems Medical Problems: (1) Abdominal pain Status: Acute (2) ESRD (end stage renal disease) Status: Acute Plan Plan of Care DIALYSIS TODAY AND TOLERATED WELL Comment Review of Relevant I have reviewed the following items hemal (where applicable) has been applied. Labs Laboratory Tests Test 11/03/16 04:30 11/04/16 05:30 White Blood Count 5.1x10^3/uL (4.0-11.0) 6.1x10^3/uL (4.0-11.0) Red Blood Count 2.60x10^6/uL (3.50-5.40) 2.34x10^6/uL (3.50-5.40) Hemoglobin 7.4g/dL (12.0-15.5) 6.7g/dL (12.0-15.5) Hematocrit 22.4% (36.0-47.0) 19.9% (36.0-47.0) Mean Corpuscular Volume 86fL (79-100) 85fL (79-100) Mean Corpuscular Hemoglobin 28pg (25-35) 29pg (25-35) Mean Corpuscular Hemoglobin Concent 33g/dL (31-37) 34g/dL (31-37) Red Cell Distribution Width 16.3% (11.5-14.5) 16.6% (11.5-14.5) Platelet Count 119x10^3/uL (140-400) 132x10^3/uL (140-400) Neutrophils (%) (Auto) 56% (31-73) Lymphocytes (%) (Auto) 22% (24-48) Monocytes (%) (Auto) 19% (0-9) Eosinophils (%) (Auto) 2% (0-3) Basophils (%) (Auto) 1% (0-3) Neutrophils # (Auto) 2.9x10^3uL (1.8-7.7) Lymphocytes # (Auto) 1.1x10^3/uL (1.0-4.8) Monocytes # (Auto) 1.0x10^3/uL (0.0-1.1) Eosinophils # (Auto) 0.1x10^3/uL (0.0-0.7) Basophils # (Auto) 0.0x10^3/uL (0.0-0.2) Segmented Neutrophils % 58% (35-66) Lymphocytes % 25% (24-48) Monocytes % 14% (0-10) Eosinophils % 3% (0-5) Platelet Estimate Decreased (ADEQUATE) Anisocytosis Present Sodium Level 140mmol/L (136-145) 142mmol/L (136-145) Potassium Level 3.9mmol/L (3.5-5.1) 5.3mmol/L (3.5-5.1) Chloride Level 102mmol/L (98-107) 103mmol/L (98-107) Carbon Dioxide Level 31mmol/L (21-32) 32mmol/L (21-32) Anion Gap 7 (6-14) 7 (6-14) Blood Urea Nitrogen 59mg/dL (7-20) 63mg/dL (7-20) Creatinine 5.1mg/dL (0.6-1.0) 4.5mg/dL (0.6-1.0) Estimated GFR (Cockcroft-Gault) 10.7 12.3 Glucose Level 207mg/dL (70-99) 134mg/dL (70-99) Calcium Level 8.6mg/dL (8.5-10.1) 8.8mg/dL (8.5-10.1) Phosphorus Level 2.6mg/dL (2.6-4.7) 2.1mg/dL (2.6-4.7) Magnesium Level 1.6mg/dL (1.8-2.4) 1.9mg/dL (1.8-2.4) Albumin 2.3g/dL (3.4-5.0) 2.3g/dL (3.4-5.0) Random Vancomycin Level 17.3mcg/mL Laboratory Tests Test 11/04/16 05:30 White Blood Count 6.1x10^3/uL (4.0-11.0) Red Blood Count 2.34x10^6/uL (3.50-5.40) Hemoglobin 6.7g/dL (12.0-15.5) Hematocrit 19.9% (36.0-47.0) Mean Corpuscular Volume 85fL (79-100) Mean Corpuscular Hemoglobin 29pg (25-35) Mean Corpuscular Hemoglobin Concent 34g/dL (31-37) Red Cell Distribution Width 16.6% (11.5-14.5) Platelet Count 132x10^3/uL (140-400) Sodium Level 142mmol/L (136-145) Potassium Level 5.3mmol/L (3.5-5.1) Chloride Level 103mmol/L (98-107) Carbon Dioxide Level 32mmol/L (21-32) Anion Gap 7 (6-14) Blood Urea Nitrogen 63mg/dL (7-20) Creatinine 4.5mg/dL (0.6-1.0) Estimated GFR (Cockcroft-Gault) 12.3 Glucose Level 134mg/dL (70-99) Calcium Level 8.8mg/dL (8.5-10.1) Phosphorus Level 2.1mg/dL (2.6-4.7) Magnesium Level 1.9mg/dL (1.8-2.4) Albumin 2.3g/dL (3.4-5.0) Random Vancomycin Level 17.3mcg/mL Microbiology 11/02/16 Blood Culture - Preliminary, Resulted NO GROWTH AFTER 2 DAYS 10/30/16 Urine Culture - Final, Complete 10/30/16 Urine Culture Result 1 (CHRISTOPH) - Final, Complete 10/30/16 Urine Culture Result 2 (CHRISTOPH) - Final, Complete Medications Current Medications Aspirin (Children'S Aspirin) 324 mg 1X ONCE PO Last administered on 10/30/16 17:05; Start 10/30/16 at 17:00; Stop 10/30/16 at 17:01; Status DC Alprazolam (Xanax) 0.5 mg PRN Q8HRS PRN PO ANXIETY / AGITATION Last administered on 11/04/16 09:57; Start 10/30/16 at 19:30 Amlodipine Besylate (Norvasc) 10 mg DAILY PO Last administered on 11/03/16 08: 35; Start 10/31/16 at 09:00 Calcium Acetate (Phoslo) 667 mg TIDWMEALS PO Last administered on 10/31/16 08: 43; Start 10/31/16 at 08:00; Stop 10/31/16 at 10:52; Status DC Carvedilol (Coreg) 12.5 mg BIDWMEALS PO Last administered on 11/03/16 19:06; Start 10/31/16 at 08:00 Divalproex Sodium (Depakote) 250 mg TID PO Last administered on 11/03/16 21:41 ; Start 10/30/16 at 21:00 Gabapentin (Neurontin) 300 mg DAILY PO Last administered on 11/03/16 08:34; Start 10/31/16 at 09:00 Hydralazine HCl (Apresoline) 50 mg QID PO Last administered on 11/03/16 21:41 ; Start 10/30/16 at 21:00 Lamotrigine (LaMICtal) 25 mg DAILY PO Last administered on 11/03/16 08:35; Start 10/31/16 at 09:00 Levothyroxine Sodium (Synthroid) 125 mcg DAILY07 PO Last administered on 05:47; Start 10/31/16 at 07:00 Nicotine (Nicoderm Cq 21mg) 1 patch DAILY TD Last administered on 11/03/16 08: 36; Start 10/31/16 at 09:00 Atorvastatin Calcium (Lipitor) 20 mg QHS PO Last administered on 11/03/16 21: 41; Start 10/30/16 at 22:00 Olanzapine (Zyprexa) 10 mg QHS PO Last administered on 11/03/16 21:40; Start 10/30/16 at 21:30 Non-Formulary Medication 1 tab PRN BID PRN PO Severe pain; Start 10/30/16 at 19 :30; Stop 10/30/16 at 19:34; Status DC Risperidone (Risperdal) 4 mg DAILY PO Last administered on 11/03/16 08:33; Start 10/31/16 at 09:00 Sertraline HCl (Zoloft) 200 mg DAILY PO Last administered on 11/03/16 08:32; Start 10/31/16 at 09:00 Sevelamer Carbonate (Renvela) 800 mg TIDWMEALS PO Last administered on 19:06; Start 10/31/16 at 08:00 Ondansetron HCl (Zofran) 4 mg PRN Q6HRS PRN IV NAUSEA/VOMITING Last administered on 11/03/16 15:00; Start 10/30/16 at 19:30 Acetaminophen/ Hydrocodone Bitart (Lortab 5/325) 1 tab PRN Q4HRS PRN PO MILD PAIN Last administered on 11/04/16 09:57; Start 10/30/16 at 19:30 Acetaminophen (Tylenol) 650 mg PRN Q6HRS PRN PO MILD PAIN / TEMP; Start at 19:30; Status UNV Heparin Sodium (Porcine) 5,000 unit Q8HRS SQ Last administered on 11/02/16 14: 00; Start 10/30/16 at 22:00; Stop 11/04/16 at 08:43; Status DC Acetaminophen (Tylenol) 650 mg PRN Q6HRS PRN PO FEVER Last administered on 11/02 18:08; Start 10/30/16 at 19:45 Hydralazine HCl (Apresoline) 10 mg PRN Q5MIN PRN IVP ELEVATED BP, SEE COMMENTS ; Start 10/30/16 at 19:45 Pantoprazole Sodium (Protonix) 40 mg DAILYAC PO Last administered on 11/03/16 08:33; Start 10/31/16 at 07:30 Ferrous Sulfate 300 mg BIDWMEALS PO Last administered on 11/03/16 08:36; Start 10/31/16 at 10:00; Stop 11/03/16 at 10:32; Status DC Polyethylene Glycol 17 gm 17 gm DAILY PO Last administered on 11/03/16 08:37; Start 10/31/16 at 12:00 Magnesium Sulfate/ Dextrose 50 ml @ 25 mls/hr PRN DAILY PRN IV for Mag < 1.7 on am labs; Start 10/31/16 at 10:45 Iron Sucrose/ Sodium Chloride (Venofer/Iv Sodium Chloride 0.9% 100ml) 110 ml @ 55 mls/hr 3X/WEEK IV Last administered on 11/03/16 09:13; Start 11/01/16 at 09 :00; Stop 11/10/16 at 10:59 Polyethylene Glycol (miraLAX PACKET) 17 gm PRN DAILY PRN PO CONSTIPATION; Start 10/31/16 at 10:45 Calcium Acetate 2001 mg 2,001 mg TIDWMEALS PO Last administered on 11/03/16 19 :07; Start 10/31/16 at 12:00 Sodium Chloride 1,000 ml @ 1,000 mls/hr Q1H PRN IV hypotension; Start 10/31/16 at 16:46; Stop 10/31/16 at 22:45; Status DC Albumin Human (Albuminar) 200 ml @ 200 mls/hr 1X PRN PRN IV Hypotension; Start 10/31/16 at 17:00; Stop 10/31/16 at 22:59; Status DC Acetaminophen (Tylenol) 500 mg 1X PRN PRN PO MILD PAIN / TEMP; Start 10/31/16 at 17:00; Stop 11/01/16 at 16:59; Status DC Diphenhydramine HCl (Benadryl) 25 mg 1X PRN PRN IV ITCHING; Start 10/31/16 at 17:00; Stop 11/01/16 at 16:59; Status DC Diphenhydramine HCl 25 mg 25 mg 1X PRN PRN IV ITCHING; Start 10/31/16 at 17:00 ; Stop 11/01/16 at 16:59; Status DC Sodium Chloride (Iv Sodium Chloride 0.9% 1000ml Bag) 1,000 ml @ 400 mls/hr Q2H30M PRN IV PATENCY; Start 10/31/16 at 16:46; Stop 11/01/16 at 04:45; Status DC Info (PHARMACY MONITORING -- do not chart) 1 each PRN DAILY PRN MC SEE COMMENTS ; Start 10/31/16 at 17:00 Docusate Sodium (Colace) 100 mg DAILY PO Last administered on 11/03/16 08:31; Start 11/01/16 at 09:00 Fentanyl Citrate 50 mcg 50 mcg 1X ONCE IV Last administered on 11/01/16 11:14 ; Start 11/01/16 at 11:15; Stop 11/01/16 at 11:16; Status DC Sodium Chloride (Iv Sodium Chloride 0.9% 1000ml Bag) 1,000 ml @ 1,000 mls/hr Q1H PRN IV hypotension; Start 11/02/16 at 07:39; Stop 11/02/16 at 13:38; Status DC Acetaminophen (Tylenol) 500 mg 1X PRN PRN PO MILD PAIN / TEMP; Start 11/02/16 at 07:45; Stop 11/03/16 at 07:44; Status DC Diphenhydramine HCl (Benadryl) 25 mg 1X PRN PRN IV ITCHING Last administered on 11/02/16 15:55; Start 11/02/16 at 07:45; Stop 11/03/16 at 07:44; Status DC Diphenhydramine HCl (Benadryl) 25 mg 1X PRN PRN IV ITCHING Last administered on 11/02/16 08:41; Start 11/02/16 at 07:45; Stop 11/03/16 at 07:44; Status DC Labetalol HCl 10 mg 10 mg PRN Q1HR PRN IVP SBP > 180; Start 11/02/16 at 07:45; Stop 11/03/16 at 07:44; Status DC Sodium Chloride (Iv Sodium Chloride 0.9% 1000ml Bag) 1,000 ml @ 400 mls/hr Q2H30M PRN IV PATENCY; Start 11/02/16 at 07:39; Stop 11/02/16 at 19:38; Status DC Info (PHARMACY MONITORING -- do not chart) 1 each PRN DAILY PRN MC SEE COMMENTS ; Start 11/02/16 at 07:45; Stop 11/02/16 at 07:51; Status DC Calcium Carbonate/ Glycine (Tums) 500 mg PRN AFTMEALHC PRN PO INDIGESTION; Start 11/02/16 at 15:15 Lidocaine (Lidoderm) 1 patch DAILY TD Last administered on 11/03/16 08:38; Start 11/02/16 at 15:45 Vancomycin HCl 1 each 1 each PRN DAILY PRN MC SEE COMMENTS Last administered on 11/03/16 12:14; Start 11/02/16 at 18:30 Piperacillin Sod/ Tazobactam Sod 2.25 gm/Sodium Chloride 50 ml @ 100 mls/hr Q8HRS IV Last administered on 11/03/16 21:42; Start 11/02/16 at 18:30 Vancomycin HCl/ Sodium Chloride (Iv Sodium Chloride 0.9% 500ml Bag) 500 ml @ 250 mls/hr 1X ONCE IV Last administered on 11/02/16 21:12; Start 11/02/16 at 18:30; Stop 11/02/16 at 20:29; Status DC Vancomycin HCl 1 each 1X ONCE MC Last administered on 11/04/16 06:00; Start 11/04/16 at 06:00; Stop 11/04/16 at 06:01; Status DC Diphenhydramine HCl (Benadryl) 25 mg PRN Q6HRS PRN PO ITCHING Last administered on 11/03/16 15:42; Start 11/03/16 at 02:00 Darbepoetin Sourav 60 mcg 60 mcg WEEKLYHS SQ Last administered on 11/03/16 21:42 ; Start 11/03/16 at 21:00 Sodium Chloride 1,000 ml @ 1,000 mls/hr Q1H PRN IV hypotension; Start 11/04/16 at 06:23; Stop 11/04/16 at 12:22 Albumin Human (Albuminar) 200 ml @ 200 mls/hr 1X PRN PRN IV Hypotension; Start 11/04/16 at 06:30; Stop 11/04/16 at 12:29 Acetaminophen (Tylenol) 500 mg 1X PRN PRN PO MILD PAIN / TEMP; Start 11/04/16 at 06:30; Stop 11/05/16 at 06:29 Diphenhydramine HCl (Benadryl) 25 mg 1X PRN PRN IV ITCHING Last administered on 11/04/16 06:57; Start 11/04/16 at 06:30; Stop 11/05/16 at 06:29 Diphenhydramine HCl (Benadryl) 25 mg 1X PRN PRN IV ITCHING; Start 11/04/16 at 06:30; Stop 11/05/16 at 06:29 Labetalol HCl (Normodyne) 10 mg PRN Q1HR PRN IVP SBP > 180; Start 11/04/16 at 06:30; Stop 11/05/16 at 06:29 Clonidine HCl (Catapres) 0.1 mg 1X PRN PRN PO SBP > 180; Start 11/04/16 at 06: 30; Stop 11/05/16 at 06:29 Info (PHARMACY MONITORING -- do not chart) 1 each PRN DAILY PRN MC SEE COMMENTS ; Start 11/04/16 at 06:30 Active Scripts Active Percocet 5-325 Mg Tablet (Oxycodone/Acetaminophen) 1 Each Tablet 1 Tab PO QID PRN Alprazolam 0.5 Mg Tablet 0.5 Mg PO Q8HRS PRN Oxycodone Hcl 10 Mg Tablet 1 Tab PO PRN BID PRN Olanzapine Odt (Olanzapine) 10 Mg Tab.rapdis 10 Mg PO QHS Lamotrigine 25 Mg Tablet 25 Mg PO DAILY 30 Days Zoloft (Sertraline Hcl) 100 Mg Tablet 200 Mg PO DAILY Risperidone 4 Mg Tablet 4 Mg PO DAILY Zofran Odt (Ondansetron) 4 Mg Tab.rapdis 1 Tab SL Q8HRS Reported NICODERM CQ 21mg (Nicotine) 1 Each Patch.td24 1 Patch TP DAILY Depakote (Divalproex Sodium) 250 Mg Tablet.dr 250 Mg PO TID Amlodipine Besylate 10 Mg Tablet 10 Mg PO DAILY Hydralazine Hcl 50 Mg Tablet 50 Mg PO QID Renagel (Sevelamer Hcl) 800 Mg Tablet 800 Mg PO TIDWMEALS Simvastatin 40 Mg Tablet 40 Mg PO HS Levothyroxine Sodium 125 Mcg Tablet 125 Mcg PO DAILYAC Gabapentin 300 Mg Capsule 300 Mg PO DAILY Phoslo (Calcium Acetate) 667 Mg Capsule 667 Mg PO TIDWMEALS Carvedilol 12.5 Mg Tablet 12.5 Mg PO BIDWMEALS Vitals/I & O Vital Sign - Last 24 Hours 11/03/16 11/03/16 11/03/16 11/03/16 11:06 11:36 19:00 19:06 Temp 98.2 98.1 98.2 98.1 Pulse 67 65 67 Resp 18 18 B/P 145/69 124/59 145/69 Pulse Ox 100 95 O2 Delivery Room Air Room Air Room Air 11/03/16 11/03/16 11/03/16 11/03/16 19:06 19:07 21:40 21:41 Pulse 67 67 B/P 145/69 145/69 O2 Delivery Room Air Room Air 11/03/16 11/04/16 11/04/16 11/04/16 22:41 02:09 03:00 03:10 Temp 98.5 98.0 98.5 98.0 Pulse 67 72 Resp 18 20 18 20 B/P 121/63 128/87 Pulse Ox 96 98 O2 Delivery Room Air Room Air Room Air Room Air 11/04/16 11/04/16 11/04/16 11/04/16 08:18 08:30 08:45 08:52 Temp 97.9 97.8 97.9 98.3 97.9 97.8 97.9 98.3 Pulse 65 63 68 65 Resp B/P 137/64 136/68 162/76 146/78 11/04/16 09:57 Pulse Ox 98 O2 Delivery Room Air Intake and Output 11/03/16 11/03/16 11/04/16 15:00 23:00 07:00 Intake Total 110 ml 850 ml 305 ml Balance 110 ml 850 ml 305 ml ROLA FRANKLIN MD Nov 04, 2016 11:04
[2016-11-04] MEDS: AMLODIPINE BESYLATE 10 MG TABLET PO SCH (11:05)
[2016-11-04] MEDS: POLYETHYLENE GLYCOL 3350 17 GM PACKET. PO SCH (11:05)
[2016-11-04] MEDS: LEVOTHYROXINE 125 MCG TABLET PO SCH (11:05)
--- NOTE | 2016-11-04 11:11 | PDOC ---
Infectious Disease Note Subjective Subjective c/o abdominal pain and nausea. Denies vomiting, diarrhea or constipation No fever last 24 hours ROS ROS GEN: Denies chills, sweats CV: Denies chest pain RESP: Denies shortness of air, cough Vital Sign Vital Signs Vital Signs Date Time Temp Pulse Resp B/P Pulse Ox O2 Delivery O2 Flow Rate FiO2 11/04/16 11:05 65 146/78 11/04/16 09:57 98 Room Air 11/04/16 08:52 98.3 18 98.3 Physical Exam PHYSICAL EXAM GENERAL: Propped up in bed, finishing dialyzing, NAD HEENT: OC/OP clear LUNGS: Clear HEART: S1S2, + murmur ABD: Soft, NT EXT: No edema, no cyanosis. RUE AV fistula TECHNICAL RECRUITER: Alert, oriented x 3, no focal neurologic deficit SKIN: No rash IV: ok Labs Lab Laboratory Tests Test 11/04/16 05:30 White Blood Count 6.1x10^3/uL (4.0-11.0) Red Blood Count 2.34x10^6/uL (3.50-5.40) Hemoglobin 6.7g/dL (12.0-15.5) Hematocrit 19.9% (36.0-47.0) Mean Corpuscular Volume 85fL (79-100) Mean Corpuscular Hemoglobin 29pg (25-35) Mean Corpuscular Hemoglobin Concent 34g/dL (31-37) Red Cell Distribution Width 16.6% (11.5-14.5) Platelet Count 132x10^3/uL (140-400) Sodium Level 142mmol/L (136-145) Potassium Level 5.3mmol/L (3.5-5.1) Chloride Level 103mmol/L (98-107) Carbon Dioxide Level 32mmol/L (21-32) Anion Gap 7 (6-14) Blood Urea Nitrogen 63mg/dL (7-20) Creatinine 4.5mg/dL (0.6-1.0) Estimated GFR (Cockcroft-Gault) 12.3 Glucose Level 134mg/dL (70-99) Calcium Level 8.8mg/dL (8.5-10.1) Phosphorus Level 2.1mg/dL (2.6-4.7) Magnesium Level 1.9mg/dL (1.8-2.4) Albumin 2.3g/dL (3.4-5.0) Random Vancomycin Level 17.3mcg/mL Micro BLOOD CULTURE Preliminary NO GROWTH AFTER 2 DAYS URINE CULTURE RES 1 Final Yeast isolated. Mixed urogenital seth Objective Assessment Fever. better Left flank/groin pain ESRD/HD Homeless Anemia Plan Plan of Care vanc and Zosyn supportive care Patient seen and examined. Chart reviewed in detail. Case d/w WORLD GEOGRAPHY TEACHER.Agree with above plan MICHELLE WALL APRN Nov 04, 2016 11:11 CASPER PRUETT MD Nov 04, 2016 16:06
[2016-11-04] MEDS: PIPERACILLIN/TAZOBACTAM 2.25 GM in IV NORMAL SALINE 50ML 50 ML IV SCH ×3 (11:19→22:09)
[2016-11-04] MEDS: DIVALPROEX DELAYED RELEASE 250 MG TABLET.DR. PO SCH ×3 (11:19→21:09)
[2016-11-04] MEDS: ONDANSETRON PF 4 MG/2 ML VIAL. IV PRN ×2 (12:35→18:11)
--- NOTE | 2016-11-04 12:38 | PDOC ---
PROGRESS NOTES Chief Complaint Chief Complaint anemia, recurrent 1. abd pain, acute on chronic 2. ESRD on HD 3. Type 2 diabetes 4. High cholesterol 5. Hypertension 6. Hypothyroidism 7. Hepatitis C 8. h/o multisubstance Abuse 9. Chronic back and hip pain 10. acute on chronic anemia, with ESRD, recent GIB 11. NON compliance 12. H/O Schizophrenia, suicidal idea 13. Homelessness 14. constipation plan: 1. fu with renal for HD 2. fu with GI. 1u PRBC today again. total 4u PRBC this admission may need EGD, defer to GI cont other meds dc heparin History of Present Illness History of Present Illness dark stool for another 2 days, Hb <7 AGain pain present but stable, LLQ out and trying to eat (items off renal diet) and trying to get out to smoke Vitals Vitals Vital Signs Date Time Temp Pulse Resp B/P Pulse Ox O2 Delivery O2 Flow Rate FiO2 11/04/16 11:05 65 146/78 11/04/16 10:57 98 Room Air 11/04/16 08:52 98.3 18 98.3 Physical Exam General: Alert, Oriented X3, Cooperative, No acute distress Heart: Regular rate, Normal S1, Normal S2, No murmurs, Gallops Lungs: Clear Abdomen: Normal bowel sounds, Soft, No tenderness, No hepatosplenomegaly, No masses Extremities: No clubbing, No cyanosis, No edema, Normal pulses, No tenderness/ swelling Skin: No rashes, No significant lesion Labs LABS Laboratory Tests Test 11/04/16 05:30 White Blood Count 6.1x10^3/uL (4.0-11.0) Red Blood Count 2.34x10^6/uL (3.50-5.40) Hemoglobin 6.7g/dL (12.0-15.5) Hematocrit 19.9% (36.0-47.0) Mean Corpuscular Volume 85fL (79-100) Mean Corpuscular Hemoglobin 29pg (25-35) Mean Corpuscular Hemoglobin Concent 34g/dL (31-37) Red Cell Distribution Width 16.6% (11.5-14.5) Platelet Count 132x10^3/uL (140-400) Sodium Level 142mmol/L (136-145) Potassium Level 5.3mmol/L (3.5-5.1) Chloride Level 103mmol/L (98-107) Carbon Dioxide Level 32mmol/L (21-32) Anion Gap 7 (6-14) Blood Urea Nitrogen 63mg/dL (7-20) Creatinine 4.5mg/dL (0.6-1.0) Estimated GFR (Cockcroft-Gault) 12.3 Glucose Level 134mg/dL (70-99) Calcium Level 8.8mg/dL (8.5-10.1) Phosphorus Level 2.1mg/dL (2.6-4.7) Magnesium Level 1.9mg/dL (1.8-2.4) Albumin 2.3g/dL (3.4-5.0) Random Vancomycin Level 17.3mcg/mL Review of Systems Review of Systems no fever, chills, sob or chest pain Assessment and Plan Assessmemt and Plan Problems Medical Problems: (1) Abdominal pain Status: Acute (2) ESRD (end stage renal disease) Status: Acute Problems: Comment Review of Relevant I have reviewed the following items hemal (where applicable) has been applied. Labs Laboratory Tests Test 11/03/16 04:30 11/04/16 05:30 White Blood Count 5.1x10^3/uL (4.0-11.0) 6.1x10^3/uL (4.0-11.0) Red Blood Count 2.60x10^6/uL (3.50-5.40) 2.34x10^6/uL (3.50-5.40) Hemoglobin 7.4g/dL (12.0-15.5) 6.7g/dL (12.0-15.5) Hematocrit 22.4% (36.0-47.0) 19.9% (36.0-47.0) Mean Corpuscular Volume 86fL (79-100) 85fL (79-100) Mean Corpuscular Hemoglobin 28pg (25-35) 29pg (25-35) Mean Corpuscular Hemoglobin Concent 33g/dL (31-37) 34g/dL (31-37) Red Cell Distribution Width 16.3% (11.5-14.5) 16.6% (11.5-14.5) Platelet Count 119x10^3/uL (140-400) 132x10^3/uL (140-400) Neutrophils (%) (Auto) 56% (31-73) Lymphocytes (%) (Auto) 22% (24-48) Monocytes (%) (Auto) 19% (0-9) Eosinophils (%) (Auto) 2% (0-3) Basophils (%) (Auto) 1% (0-3) Neutrophils # (Auto) 2.9x10^3uL (1.8-7.7) Lymphocytes # (Auto) 1.1x10^3/uL (1.0-4.8) Monocytes # (Auto) 1.0x10^3/uL (0.0-1.1) Eosinophils # (Auto) 0.1x10^3/uL (0.0-0.7) Basophils # (Auto) 0.0x10^3/uL (0.0-0.2) Segmented Neutrophils % 58% (35-66) Lymphocytes % 25% (24-48) Monocytes % 14% (0-10) Eosinophils % 3% (0-5) Platelet Estimate Decreased (ADEQUATE) Anisocytosis Present Sodium Level 140mmol/L (136-145) 142mmol/L (136-145) Potassium Level 3.9mmol/L (3.5-5.1) 5.3mmol/L (3.5-5.1) Chloride Level 102mmol/L (98-107) 103mmol/L (98-107) Carbon Dioxide Level 31mmol/L (21-32) 32mmol/L (21-32) Anion Gap 7 (6-14) 7 (6-14) Blood Urea Nitrogen 59mg/dL (7-20) 63mg/dL (7-20) Creatinine 5.1mg/dL (0.6-1.0) 4.5mg/dL (0.6-1.0) Estimated GFR (Cockcroft-Gault) 10.7 12.3 Glucose Level 207mg/dL (70-99) 134mg/dL (70-99) Calcium Level 8.6mg/dL (8.5-10.1) 8.8mg/dL (8.5-10.1) Phosphorus Level 2.6mg/dL (2.6-4.7) 2.1mg/dL (2.6-4.7) Magnesium Level 1.6mg/dL (1.8-2.4) 1.9mg/dL (1.8-2.4) Albumin 2.3g/dL (3.4-5.0) 2.3g/dL (3.4-5.0) Random Vancomycin Level 17.3mcg/mL Laboratory Tests Test 11/04/16 05:30 White Blood Count 6.1x10^3/uL (4.0-11.0) Red Blood Count 2.34x10^6/uL (3.50-5.40) Hemoglobin 6.7g/dL (12.0-15.5) Hematocrit 19.9% (36.0-47.0) Mean Corpuscular Volume 85fL (79-100) Mean Corpuscular Hemoglobin 29pg (25-35) Mean Corpuscular Hemoglobin Concent 34g/dL (31-37) Red Cell Distribution Width 16.6% (11.5-14.5) Platelet Count 132x10^3/uL (140-400) Sodium Level 142mmol/L (136-145) Potassium Level 5.3mmol/L (3.5-5.1) Chloride Level 103mmol/L (98-107) Carbon Dioxide Level 32mmol/L (21-32) Anion Gap 7 (6-14) Blood Urea Nitrogen 63mg/dL (7-20) Creatinine 4.5mg/dL (0.6-1.0) Estimated GFR (Cockcroft-Gault) 12.3 Glucose Level 134mg/dL (70-99) Calcium Level 8.8mg/dL (8.5-10.1) Phosphorus Level 2.1mg/dL (2.6-4.7) Magnesium Level 1.9mg/dL (1.8-2.4) Albumin 2.3g/dL (3.4-5.0) Random Vancomycin Level 17.3mcg/mL Microbiology 11/02/16 Blood Culture - Preliminary, Resulted NO GROWTH AFTER 2 DAYS 10/30/16 Urine Culture - Final, Complete 10/30/16 Urine Culture Result 1 (CHRISTOPH) - Final, Complete 10/30/16 Urine Culture Result 2 (CHRISTOPH) - Final, Complete Medications Current Medications Aspirin (Children'S Aspirin) 324 mg 1X ONCE PO Last administered on 10/30/16 17:05; Start 10/30/16 at 17:00; Stop 10/30/16 at 17:01; Status DC Alprazolam (Xanax) 0.5 mg PRN Q8HRS PRN PO ANXIETY / AGITATION Last administered on 11/04/16 09:57; Start 10/30/16 at 19:30 Amlodipine Besylate (Norvasc) 10 mg DAILY PO Last administered on 11/04/16 11: 05; Start 10/31/16 at 09:00 Calcium Acetate (Phoslo) 667 mg TIDWMEALS PO Last administered on 10/31/16 08: 43; Start 10/31/16 at 08:00; Stop 10/31/16 at 10:52; Status DC Carvedilol (Coreg) 12.5 mg BIDWMEALS PO Last administered on 11/04/16 11:01; Start 10/31/16 at 08:00 Divalproex Sodium (Depakote) 250 mg TID PO Last administered on 11/04/16 11:19 ; Start 10/30/16 at 21:00 Gabapentin (Neurontin) 300 mg DAILY PO Last administered on 11/04/16 11:01; Start 10/31/16 at 09:00 Hydralazine HCl (Apresoline) 50 mg QID PO Last administered on 11/04/16 11:03 ; Start 10/30/16 at 21:00 Lamotrigine (LaMICtal) 25 mg DAILY PO Last administered on 11/04/16 11:04; Start 10/31/16 at 09:00 Levothyroxine Sodium (Synthroid) 125 mcg DAILY07 PO Last administered on 11:05; Start 10/31/16 at 07:00 Nicotine (Nicoderm Cq 21mg) 1 patch DAILY TD Last administered on 11/04/16 11: 03; Start 10/31/16 at 09:00 Atorvastatin Calcium (Lipitor) 20 mg QHS PO Last administered on 11/03/16 21: 41; Start 10/30/16 at 22:00 Olanzapine (Zyprexa) 10 mg QHS PO Last administered on 11/03/16 21:40; Start 10/30/16 at 21:30 Non-Formulary Medication 1 tab PRN BID PRN PO Severe pain; Start 10/30/16 at 19 :30; Stop 10/30/16 at 19:34; Status DC Risperidone (Risperdal) 4 mg DAILY PO Last administered on 11/04/16 11:04; Start 10/31/16 at 09:00 Sertraline HCl (Zoloft) 200 mg DAILY PO Last administered on 11/04/16 11:02; Start 10/31/16 at 09:00 Sevelamer Carbonate (Renvela) 800 mg TIDWMEALS PO Last administered on 11:04; Start 10/31/16 at 08:00 Ondansetron HCl (Zofran) 4 mg PRN Q6HRS PRN IV NAUSEA/VOMITING Last administered on 11/03/16 15:00; Start 10/30/16 at 19:30 Acetaminophen/ Hydrocodone Bitart (Lortab 5/325) 1 tab PRN Q4HRS PRN PO MILD PAIN Last administered on 11/04/16 09:57; Start 10/30/16 at 19:30 Acetaminophen (Tylenol) 650 mg PRN Q6HRS PRN PO MILD PAIN / TEMP; Start at 19:30; Status UNV Heparin Sodium (Porcine) 5,000 unit Q8HRS SQ Last administered on 11/02/16 14: 00; Start 10/30/16 at 22:00; Stop 11/04/16 at 08:43; Status DC Acetaminophen (Tylenol) 650 mg PRN Q6HRS PRN PO FEVER Last administered on 11/02 18:08; Start 10/30/16 at 19:45 Hydralazine HCl (Apresoline) 10 mg PRN Q5MIN PRN IVP ELEVATED BP, SEE COMMENTS ; Start 10/30/16 at 19:45 Pantoprazole Sodium (Protonix) 40 mg DAILYAC PO Last administered on 11/04/16 11:02; Start 10/31/16 at 07:30 Ferrous Sulfate 300 mg BIDWMEALS PO Last administered on 11/03/16 08:36; Start 10/31/16 at 10:00; Stop 11/03/16 at 10:32; Status DC Polyethylene Glycol 17 gm 17 gm DAILY PO Last administered on 11/04/16 11:05; Start 10/31/16 at 12:00 Magnesium Sulfate/ Dextrose 50 ml @ 25 mls/hr PRN DAILY PRN IV for Mag < 1.7 on am labs; Start 10/31/16 at 10:45 Iron Sucrose/ Sodium Chloride (Venofer/Iv Sodium Chloride 0.9% 100ml) 110 ml @ 55 mls/hr 3X/WEEK IV Last administered on 11/03/16 09:13; Start 11/01/16 at 09 :00; Stop 11/10/16 at 10:59 Polyethylene Glycol (miraLAX PACKET) 17 gm PRN DAILY PRN PO CONSTIPATION; Start 10/31/16 at 10:45 Calcium Acetate 2001 mg 2,001 mg TIDWMEALS PO Last administered on 11/04/16 11 :01; Start 10/31/16 at 12:00 Sodium Chloride 1,000 ml @ 1,000 mls/hr Q1H PRN IV hypotension; Start 10/31/16 at 16:46; Stop 10/31/16 at 22:45; Status DC Albumin Human (Albuminar) 200 ml @ 200 mls/hr 1X PRN PRN IV Hypotension; Start 10/31/16 at 17:00; Stop 10/31/16 at 22:59; Status DC Acetaminophen (Tylenol) 500 mg 1X PRN PRN PO MILD PAIN / TEMP; Start 10/31/16 at 17:00; Stop 11/01/16 at 16:59; Status DC Diphenhydramine HCl (Benadryl) 25 mg 1X PRN PRN IV ITCHING; Start 10/31/16 at 17:00; Stop 11/01/16 at 16:59; Status DC Diphenhydramine HCl 25 mg 25 mg 1X PRN PRN IV ITCHING; Start 10/31/16 at 17:00 ; Stop 11/01/16 at 16:59; Status DC Sodium Chloride (Iv Sodium Chloride 0.9% 1000ml Bag) 1,000 ml @ 400 mls/hr Q2H30M PRN IV PATENCY; Start 10/31/16 at 16:46; Stop 11/01/16 at 04:45; Status DC Info (PHARMACY MONITORING -- do not chart) 1 each PRN DAILY PRN MC SEE COMMENTS ; Start 10/31/16 at 17:00 Docusate Sodium (Colace) 100 mg DAILY PO Last administered on 11/04/16 09:00; Start 11/01/16 at 09:00 Fentanyl Citrate 50 mcg 50 mcg 1X ONCE IV Last administered on 11/01/16 11:14 ; Start 11/01/16 at 11:15; Stop 11/01/16 at 11:16; Status DC Sodium Chloride (Iv Sodium Chloride 0.9% 1000ml Bag) 1,000 ml @ 1,000 mls/hr Q1H PRN IV hypotension; Start 11/02/16 at 07:39; Stop 11/02/16 at 13:38; Status DC Acetaminophen (Tylenol) 500 mg 1X PRN PRN PO MILD PAIN / TEMP; Start 11/02/16 at 07:45; Stop 11/03/16 at 07:44; Status DC Diphenhydramine HCl (Benadryl) 25 mg 1X PRN PRN IV ITCHING Last administered on 11/02/16 15:55; Start 11/02/16 at 07:45; Stop 11/03/16 at 07:44; Status DC Diphenhydramine HCl (Benadryl) 25 mg 1X PRN PRN IV ITCHING Last administered on 11/02/16 08:41; Start 11/02/16 at 07:45; Stop 11/03/16 at 07:44; Status DC Labetalol HCl 10 mg 10 mg PRN Q1HR PRN IVP SBP > 180; Start 11/02/16 at 07:45; Stop 11/03/16 at 07:44; Status DC Sodium Chloride (Iv Sodium Chloride 0.9% 1000ml Bag) 1,000 ml @ 400 mls/hr Q2H30M PRN IV PATENCY; Start 11/02/16 at 07:39; Stop 11/02/16 at 19:38; Status DC Info (PHARMACY MONITORING -- do not chart) 1 each PRN DAILY PRN MC SEE COMMENTS ; Start 11/02/16 at 07:45; Stop 11/02/16 at 07:51; Status DC Calcium Carbonate/ Glycine (Tums) 500 mg PRN AFTMEALHC PRN PO INDIGESTION; Start 11/02/16 at 15:15 Lidocaine (Lidoderm) 1 patch DAILY TD Last administered on 11/04/16 11:04; Start 11/02/16 at 15:45 Vancomycin HCl 1 each 1 each PRN DAILY PRN MC SEE COMMENTS Last administered on 11/03/16 12:14; Start 11/02/16 at 18:30 Piperacillin Sod/ Tazobactam Sod 2.25 gm/Sodium Chloride 50 ml @ 100 mls/hr Q8HRS IV Last administered on 11/04/16 11:19; Start 11/02/16 at 18:30 Vancomycin HCl/ Sodium Chloride (Iv Sodium Chloride 0.9% 500ml Bag) 500 ml @ 250 mls/hr 1X ONCE IV Last administered on 11/02/16 21:12; Start 11/02/16 at 18:30; Stop 11/02/16 at 20:29; Status DC Vancomycin HCl 1 each 1X ONCE MC Last administered on 11/04/16 06:00; Start 11/04/16 at 06:00; Stop 11/04/16 at 06:01; Status DC Diphenhydramine HCl (Benadryl) 25 mg PRN Q6HRS PRN PO ITCHING Last administered on 11/03/16 15:42; Start 11/03/16 at 02:00 Darbepoetin Sourav 60 mcg 60 mcg WEEKLYHS SQ Last administered on 11/03/16 21:42 ; Start 11/03/16 at 21:00 Sodium Chloride 1,000 ml @ 1,000 mls/hr Q1H PRN IV hypotension; Start 11/04/16 at 06:23; Stop 11/04/16 at 12:22; Status DC Albumin Human (Albuminar) 200 ml @ 200 mls/hr 1X PRN PRN IV Hypotension; Start 11/04/16 at 06:30; Stop 11/04/16 at 12:29; Status DC Acetaminophen (Tylenol) 500 mg 1X PRN PRN PO MILD PAIN / TEMP; Start 11/04/16 at 06:30; Stop 11/05/16 at 06:29 Diphenhydramine HCl (Benadryl) 25 mg 1X PRN PRN IV ITCHING Last administered on 11/04/16 06:57; Start 11/04/16 at 06:30; Stop 11/05/16 at 06:29 Diphenhydramine HCl (Benadryl) 25 mg 1X PRN PRN IV ITCHING; Start 11/04/16 at 06:30; Stop 11/05/16 at 06:29 Labetalol HCl (Normodyne) 10 mg PRN Q1HR PRN IVP SBP > 180; Start 11/04/16 at 06:30; Stop 11/05/16 at 06:29 Clonidine HCl (Catapres) 0.1 mg 1X PRN PRN PO SBP > 180; Start 11/04/16 at 06: 30; Stop 11/05/16 at 06:29 Info (PHARMACY MONITORING -- do not chart) 1 each PRN DAILY PRN MC SEE COMMENTS ; Start 11/04/16 at 06:30 Active Scripts Active Percocet 5-325 Mg Tablet (Oxycodone/Acetaminophen) 1 Each Tablet 1 Tab PO QID PRN Alprazolam 0.5 Mg Tablet 0.5 Mg PO Q8HRS PRN Oxycodone Hcl 10 Mg Tablet 1 Tab PO PRN BID PRN Olanzapine Odt (Olanzapine) 10 Mg Tab.rapdis 10 Mg PO QHS Lamotrigine 25 Mg Tablet 25 Mg PO DAILY 30 Days Zoloft (Sertraline Hcl) 100 Mg Tablet 200 Mg PO DAILY Risperidone 4 Mg Tablet 4 Mg PO DAILY Zofran Odt (Ondansetron) 4 Mg Tab.rapdis 1 Tab SL Q8HRS Reported NICODERM CQ 21mg (Nicotine) 1 Each Patch.td24 1 Patch TP DAILY Depakote (Divalproex Sodium) 250 Mg Tablet.dr 250 Mg PO TID Amlodipine Besylate 10 Mg Tablet 10 Mg PO DAILY Hydralazine Hcl 50 Mg Tablet 50 Mg PO QID Renagel (Sevelamer Hcl) 800 Mg Tablet 800 Mg PO TIDWMEALS Simvastatin 40 Mg Tablet 40 Mg PO HS Levothyroxine Sodium 125 Mcg Tablet 125 Mcg PO DAILYAC Gabapentin 300 Mg Capsule 300 Mg PO DAILY Phoslo (Calcium Acetate) 667 Mg Capsule 667 Mg PO TIDWMEALS Carvedilol 12.5 Mg Tablet 12.5 Mg PO BIDWMEALS Vitals/I & O Vital Sign - Last 24 Hours 11/03/16 11/03/16 11/03/16 11/03/16 19:00 19:06 19:06 19:07 Temp 98.1 98.1 Pulse 65 67 67 Resp 18 B/P 124/59 145/69 145/69 Pulse Ox 95 O2 Delivery Room Air Room Air 11/03/16 11/03/16 11/03/16 11/04/16 21:40 21:41 22:41 02:09 Temp 98.5 98.5 Pulse 67 67 Resp 18 20 B/P 145/69 121/63 Pulse Ox 96 O2 Delivery Room Air Room Air Room Air 11/04/16 11/04/16 11/04/16 11/04/16 03:00 03:10 08:00 08:18 Temp 98.0 97.9 98.0 97.9 Pulse 72 65 Resp 18 20 18 B/P 128/87 137/64 Pulse Ox 98 O2 Delivery Room Air Room Air 11/04/16 11/04/16 11/04/16 11/04/16 08:30 08:45 08:52 09:57 Temp 97.8 97.9 98.3 97.8 97.9 98.3 Pulse 63 68 65 Resp 20 18 B/P 136/68 162/76 146/78 Pulse Ox 98 O2 Delivery Room Air 11/04/16 11/04/16 11/04/16 11/04/16 10:57 11:01 11:03 11:05 Pulse 65 65 65 B/P 146/78 146/78 146/78 Pulse Ox 98 O2 Delivery Room Air Intake and Output 11/03/16 11/03/16 11/04/16 15:00 23:00 07:00 Intake Total 110 ml 850 ml 305 ml Balance 110 ml 850 ml 305 ml TIFFANIE JASON MD Nov 04, 2016 12:38
[2016-11-04] MEDS: VANCOMYCIN PER PHARMACY MC PRN (14:19)
[2016-11-04] MEDS ORDERED: VANCOMYCIN 500 MG in IV NORMAL SALINE 100ML 100 ML IV SCH (16:00)
[2016-11-04] MEDS: ATORVASTATIN CALCIUM 20 MG TABLET PO SCH (21:09)
[2016-11-04] MEDS: OLANZAPINE 5 MG TABLET. PO SCH (21:10)
[2016-11-04] MEDS: DIPHENHYDRAMINE HCL 25 MG CAPSULE PO PRN (22:08)
[2016-11-05] VITALS (11 sets, daily range): BP systolic 120–145; BP diastolic 64–84
[2016-11-05] MEDS: HYDROCODONE/APAP 5/325MG TABLET. PO PRN ×2 (00:14→09:17)
[2016-11-05] MEDS: ONDANSETRON PF 4 MG/2 ML VIAL. IV PRN ×3 (00:17→20:25)
[2016-11-05 05:53] LABS: ALBUMIN 2.3 g/dL (3.4-5.0); CALCIUM 8.6 mg/dL (8.5-10.1); CREATININE 3.9 mg/dL (0.6-1.0); GFR 14.5; PHOSPHORUS 2.4 mg/dL (2.6-4.7); POTASSIUM 4.5 mmol/L (3.5-5.1)
[2016-11-05] MEDS: PIPERACILLIN/TAZOBACTAM 2.25 GM in IV NORMAL SALINE 50ML 50 ML IV SCH ×3 (06:31→21:45)
[2016-11-05 06:37] LABS: BASO % 1 % (0-3); EOS % 2 % (0-3); LYMPH # 1.6 x10^3/uL (1.0-4.8); LYMPH % 24 % (24-48); MEAN CORPUSCULAR HEMOGLOBIN 29 pg (25-35); MEAN CORPUSCULAR HGB CONC 33 g/dL (31-37); MEAN CORPUSCULAR VOLUME 89 fL (79-100); MONO % 16 % (0-9); NEUT % 58 % (31-73); PLATELET COUNT 130 x10^3/uL (140-400); RED BLOOD COUNT 2.23 x10^6/uL (3.50-5.40); WHITE BLOOD COUNT 6.7 x10^3/uL (4.0-11.0)
[2016-11-05 06:47] LABS: HEMATOCRIT 19.7 % (36.0-47.0); HEMOGLOBIN 6.5 g/dL (12.0-15.5)
[2016-11-05] MEDS: LIDOCAINE (700MG/PATCH) PATCH. TD SCH (08:30)
[2016-11-05] MEDS: POLYETHYLENE GLYCOL 3350 17 GM PACKET. PO SCH (08:31)
[2016-11-05] MEDS: lamoTRIgine 25 MG TABLET. PO SCH (08:31)
[2016-11-05] MEDS: NICOTINE 21MG PATCH. TD SCH (08:31)
[2016-11-05] MEDS: SERTRALINE 50 MG TABLET. PO SCH (08:31)
[2016-11-05] MEDS: AMLODIPINE BESYLATE 10 MG TABLET PO SCH (08:32)
[2016-11-05] MEDS: DOCUSATE SODIUM 100 MG CAPSULE PO SCH (08:32)
[2016-11-05] MEDS: HYDRALAZINE 50 MG TABLET PO SCH ×4 (08:32→20:25)
[2016-11-05] MEDS: GABAPENTIN 300 MG CAPSULE. PO SCH (08:33)
[2016-11-05] MEDS: CALCIUM ACETATE 667 MG CAPSULE PO SCH ×3 (08:33→17:21)
[2016-11-05] MEDS: PANTOPRAZOLE 40 MG TABLET. PO SCH (08:33)
[2016-11-05] MEDS: DIVALPROEX DELAYED RELEASE 250 MG TABLET.DR. PO SCH ×3 (08:33→20:26)
[2016-11-05] MEDS: SEVELAMER CARBONATE 800 MG TABLET. PO SCH ×3 (08:33→17:21)
[2016-11-05] MEDS: CARVEDILOL 12.5 MG TABLET PO SCH ×2 (08:34→17:21)
[2016-11-05] MEDS: LEVOTHYROXINE 125 MCG TABLET PO SCH (08:34)
[2016-11-05] MEDS: risperiDONE 1 MG TABLET. PO SCH (08:34)
[2016-11-05] MEDS: ALPRAZOLAM 0.5 MG TABLET PO PRN ×2 (09:17→20:25)
--- NOTE | 2016-11-05 09:32 | PDOC ---
Infectious Disease Note Subjective Subjective c/o LLQ abdominal pain + diarrhea ow Denies nausea, vomiting No fever last 24 hours ROS ROS GEN: Denies fevers, chills, sweats CV: Denies chest pain RESP: Denies shortness of air, cough Vital Sign Vital Signs Vital Signs Date Time Temp Pulse Resp B/P Pulse Ox O2 Delivery O2 Flow Rate FiO2 11/05/16 09:17 100 Room Air 11/05/16 08:34 68 138/74 11/05/16 03:18 98.6 20 98.6 Physical Exam PHYSICAL EXAM GENERAL: Propped up in bed, NAD HEENT: OC/OP clear LUNGS: Clear HEART: S1S2, + murmur ABD: Soft, NT EXT: No edema, no cyanosis. RUE AV fistula FERRY OPERATOR: Alert, oriented x 3, no focal neurologic deficit SKIN: No rash Labs Lab Laboratory Tests Test 11/05/16 04:33 White Blood Count 6.7x10^3/uL (4.0-11.0) Red Blood Count 2.23x10^6/uL (3.50-5.40) Hemoglobin 6.5g/dL (12.0-15.5) Hematocrit 19.7% (36.0-47.0) Mean Corpuscular Volume 89fL (79-100) Mean Corpuscular Hemoglobin 29pg (25-35) Mean Corpuscular Hemoglobin Concent 33g/dL (31-37) Red Cell Distribution Width 16.0% (11.5-14.5) Platelet Count 130x10^3/uL (140-400) Neutrophils (%) (Auto) 58% (31-73) Lymphocytes (%) (Auto) 24% (24-48) Monocytes (%) (Auto) 16% (0-9) Eosinophils (%) (Auto) 2% (0-3) Basophils (%) (Auto) 1% (0-3) Neutrophils # (Auto) 3.9x10^3uL (1.8-7.7) Lymphocytes # (Auto) 1.6x10^3/uL (1.0-4.8) Monocytes # (Auto) 1.1x10^3/uL (0.0-1.1) Eosinophils # (Auto) 0.1x10^3/uL (0.0-0.7) Basophils # (Auto) 0.0x10^3/uL (0.0-0.2) Sodium Level 140mmol/L (136-145) Potassium Level 4.5mmol/L (3.5-5.1) Chloride Level 103mmol/L (98-107) Carbon Dioxide Level 29mmol/L (21-32) Anion Gap 8 (6-14) Blood Urea Nitrogen 61mg/dL (7-20) Creatinine 3.9mg/dL (0.6-1.0) Estimated GFR (Cockcroft-Gault) 14.5 Glucose Level 132mg/dL (70-99) Calcium Level 8.6mg/dL (8.5-10.1) Phosphorus Level 2.4mg/dL (2.6-4.7) Magnesium Level 1.8mg/dL (1.8-2.4) Albumin 2.3g/dL (3.4-5.0) Micro BLOOD CULTURE Preliminary NO GROWTH AFTER 2 DAYS URINE CULTURE RES 1 Final Yeast isolated. Mixed urogenital seth Objective Assessment Fever. better Left flank/groin pain ESRD/HD Homeless Anemia Plan Plan of Care [facility] supportive care Patient seen and examined. Chart reviewed. Case discussed with FIG BAR MACHINE OPERATOR. CT result viewed. Agree with above plan. MICHELLE WALL APRN Nov 05, 2016 09:31 CASPER PRUETT MD Nov 05, 2016 16:02
--- NOTE | 2016-11-05 11:54 | PDOC ---
PROGRESS NOTES Chief Complaint Chief Complaint anemia, recurrent 1. abd pain, acute on chronic 2. ESRD on HD 3. Type 2 diabetes 4. High cholesterol 5. Hypertension 6. Hypothyroidism 7. Hepatitis C 8. h/o multisubstance Abuse 9. Chronic back and hip pain 10. acute on chronic anemia, with ESRD, recent GIB 11. NON compliance 12. H/O Schizophrenia, suicidal idea 13. Homelessness 14. constipation plan: 1. fu with renal for HD 2. fu with GI. 1u PRBC today again. total 5u PRBC this admission may need EGD, defer to GI cont other meds dc heparin slightly increase pain meds History of Present Illness History of Present Illness dark stool for another 3 days, Hb <7 AGain, not responding to transfusion pain present but stable, LLQ, c/p pain meds not work (as she always dose0 out and trying to eat (items off renal diet) and trying to get out to smoke Vitals Vitals Vital Signs Date Time Temp Pulse Resp B/P Pulse Ox O2 Delivery O2 Flow Rate FiO2 11/05/16 09:17 100 Room Air 11/05/16 08:34 68 138/74 11/05/16 03:18 98.6 20 98.6 Physical Exam General: Alert, Oriented X3, Cooperative, No acute distress Heart: Regular rate, Normal S1, Normal S2, No murmurs, Gallops Lungs: Clear Abdomen: Normal bowel sounds, Soft, No tenderness, No hepatosplenomegaly, No masses Extremities: No clubbing, No cyanosis, No edema, Normal pulses, No tenderness/ swelling Skin: No rashes, No significant lesion Labs LABS Laboratory Tests Test 11/05/16 04:33 White Blood Count 6.7x10^3/uL (4.0-11.0) Red Blood Count 2.23x10^6/uL (3.50-5.40) Hemoglobin 6.5g/dL (12.0-15.5) Hematocrit 19.7% (36.0-47.0) Mean Corpuscular Volume 89fL (79-100) Mean Corpuscular Hemoglobin 29pg (25-35) Mean Corpuscular Hemoglobin Concent 33g/dL (31-37) Red Cell Distribution Width 16.0% (11.5-14.5) Platelet Count 130x10^3/uL (140-400) Neutrophils (%) (Auto) 58% (31-73) Lymphocytes (%) (Auto) 24% (24-48) Monocytes (%) (Auto) 16% (0-9) Eosinophils (%) (Auto) 2% (0-3) Basophils (%) (Auto) 1% (0-3) Neutrophils # (Auto) 3.9x10^3uL (1.8-7.7) Lymphocytes # (Auto) 1.6x10^3/uL (1.0-4.8) Monocytes # (Auto) 1.1x10^3/uL (0.0-1.1) Eosinophils # (Auto) 0.1x10^3/uL (0.0-0.7) Basophils # (Auto) 0.0x10^3/uL (0.0-0.2) Sodium Level 140mmol/L (136-145) Potassium Level 4.5mmol/L (3.5-5.1) Chloride Level 103mmol/L (98-107) Carbon Dioxide Level 29mmol/L (21-32) Anion Gap 8 (6-14) Blood Urea Nitrogen 61mg/dL (7-20) Creatinine 3.9mg/dL (0.6-1.0) Estimated GFR (Cockcroft-Gault) 14.5 Glucose Level 132mg/dL (70-99) Calcium Level 8.6mg/dL (8.5-10.1) Phosphorus Level 2.4mg/dL (2.6-4.7) Magnesium Level 1.8mg/dL (1.8-2.4) Albumin 2.3g/dL (3.4-5.0) Review of Systems Review of Systems no fever, chills, sob or chest pain Assessment and Plan Assessmemt and Plan Problems Medical Problems: (1) Abdominal pain Status: Acute (2) ESRD (end stage renal disease) Status: Acute Problems: Comment Review of Relevant I have reviewed the following items hemal (where applicable) has been applied. Labs Laboratory Tests Test 11/04/16 05:30 11/05/16 04:33 White Blood Count 6.1x10^3/uL (4.0-11.0) 6.7x10^3/uL (4.0-11.0) Red Blood Count 2.34x10^6/uL (3.50-5.40) 2.23x10^6/uL (3.50-5.40) Hemoglobin 6.7g/dL (12.0-15.5) 6.5g/dL (12.0-15.5) Hematocrit 19.9% (36.0-47.0) 19.7% (36.0-47.0) Mean Corpuscular Volume 85fL (79-100) 89fL (79-100) Mean Corpuscular Hemoglobin 29pg (25-35) 29pg (25-35) Mean Corpuscular Hemoglobin Concent 34g/dL (31-37) 33g/dL (31-37) Red Cell Distribution Width 16.6% (11.5-14.5) 16.0% (11.5-14.5) Platelet Count 132x10^3/uL (140-400) 130x10^3/uL (140-400) Sodium Level 142mmol/L (136-145) 140mmol/L (136-145) Potassium Level 5.3mmol/L (3.5-5.1) 4.5mmol/L (3.5-5.1) Chloride Level 103mmol/L (98-107) 103mmol/L (98-107) Carbon Dioxide Level 32mmol/L (21-32) 29mmol/L (21-32) Anion Gap 7 (6-14) 8 (6-14) Blood Urea Nitrogen 63mg/dL (7-20) 61mg/dL (7-20) Creatinine 4.5mg/dL (0.6-1.0) 3.9mg/dL (0.6-1.0) Estimated GFR (Cockcroft-Gault) 12.3 14.5 Glucose Level 134mg/dL (70-99) 132mg/dL (70-99) Calcium Level 8.8mg/dL (8.5-10.1) 8.6mg/dL (8.5-10.1) Phosphorus Level 2.1mg/dL (2.6-4.7) 2.4mg/dL (2.6-4.7) Magnesium Level 1.9mg/dL (1.8-2.4) 1.8mg/dL (1.8-2.4) Albumin 2.3g/dL (3.4-5.0) 2.3g/dL (3.4-5.0) Random Vancomycin Level 17.3mcg/mL Neutrophils (%) (Auto) 58% (31-73) Lymphocytes (%) (Auto) 24% (24-48) Monocytes (%) (Auto) 16% (0-9) Eosinophils (%) (Auto) 2% (0-3) Basophils (%) (Auto) 1% (0-3) Neutrophils # (Auto) 3.9x10^3uL (1.8-7.7) Lymphocytes # (Auto) 1.6x10^3/uL (1.0-4.8) Monocytes # (Auto) 1.1x10^3/uL (0.0-1.1) Eosinophils # (Auto) 0.1x10^3/uL (0.0-0.7) Basophils # (Auto) 0.0x10^3/uL (0.0-0.2) Laboratory Tests Test 11/05/16 04:33 White Blood Count 6.7x10^3/uL (4.0-11.0) Red Blood Count 2.23x10^6/uL (3.50-5.40) Hemoglobin 6.5g/dL (12.0-15.5) Hematocrit 19.7% (36.0-47.0) Mean Corpuscular Volume 89fL (79-100) Mean Corpuscular Hemoglobin 29pg (25-35) Mean Corpuscular Hemoglobin Concent 33g/dL (31-37) Red Cell Distribution Width 16.0% (11.5-14.5) Platelet Count 130x10^3/uL (140-400) Neutrophils (%) (Auto) 58% (31-73) Lymphocytes (%) (Auto) 24% (24-48) Monocytes (%) (Auto) 16% (0-9) Eosinophils (%) (Auto) 2% (0-3) Basophils (%) (Auto) 1% (0-3) Neutrophils # (Auto) 3.9x10^3uL (1.8-7.7) Lymphocytes # (Auto) 1.6x10^3/uL (1.0-4.8) Monocytes # (Auto) 1.1x10^3/uL (0.0-1.1) Eosinophils # (Auto) 0.1x10^3/uL (0.0-0.7) Basophils # (Auto) 0.0x10^3/uL (0.0-0.2) Sodium Level 140mmol/L (136-145) Potassium Level 4.5mmol/L (3.5-5.1) Chloride Level 103mmol/L (98-107) Carbon Dioxide Level 29mmol/L (21-32) Anion Gap 8 (6-14) Blood Urea Nitrogen 61mg/dL (7-20) Creatinine 3.9mg/dL (0.6-1.0) Estimated GFR (Cockcroft-Gault) 14.5 Glucose Level 132mg/dL (70-99) Calcium Level 8.6mg/dL (8.5-10.1) Phosphorus Level 2.4mg/dL (2.6-4.7) Magnesium Level 1.8mg/dL (1.8-2.4) Albumin 2.3g/dL (3.4-5.0) Microbiology 11/02/16 Blood Culture - Preliminary, Resulted NO GROWTH AFTER 3 DAYS 10/30/16 Urine Culture - Final, Complete 10/30/16 Urine Culture Result 1 (CHRISTOPH) - Final, Complete 10/30/16 Urine Culture Result 2 (CHRISTOPH) - Final, Complete Medications Current Medications Aspirin (Children'S Aspirin) 324 mg 1X ONCE PO Last administered on 10/30/16 17:05; Start 10/30/16 at 17:00; Stop 10/30/16 at 17:01; Status DC Alprazolam (Xanax) 0.5 mg PRN Q8HRS PRN PO ANXIETY / AGITATION Last administered on 11/05/16 09:17; Start 10/30/16 at 19:30 Amlodipine Besylate (Norvasc) 10 mg DAILY PO Last administered on 11/05/16 08: 32; Start 10/31/16 at 09:00 Calcium Acetate (Phoslo) 667 mg TIDWMEALS PO Last administered on 10/31/16 08: 43; Start 10/31/16 at 08:00; Stop 10/31/16 at 10:52; Status DC Carvedilol (Coreg) 12.5 mg BIDWMEALS PO Last administered on 11/05/16 08:34; Start 10/31/16 at 08:00 Divalproex Sodium (Depakote) 250 mg TID PO Last administered on 11/05/16 08:33 ; Start 10/30/16 at 21:00 Gabapentin (Neurontin) 300 mg DAILY PO Last administered on 11/05/16 08:33; Start 10/31/16 at 09:00 Hydralazine HCl (Apresoline) 50 mg QID PO Last administered on 11/05/16 08:32 ; Start 10/30/16 at 21:00 Lamotrigine (LaMICtal) 25 mg DAILY PO Last administered on 11/05/16 08:31; Start 10/31/16 at 09:00 Levothyroxine Sodium (Synthroid) 125 mcg DAILY07 PO Last administered on 08:34; Start 10/31/16 at 07:00 Nicotine (Nicoderm Cq 21mg) 1 patch DAILY TD Last administered on 11/05/16 08: 31; Start 10/31/16 at 09:00 Atorvastatin Calcium (Lipitor) 20 mg QHS PO Last administered on 11/04/16 21: 09; Start 10/30/16 at 22:00 Olanzapine (Zyprexa) 10 mg QHS PO Last administered on 11/04/16 21:10; Start 10/30/16 at 21:30 Non-Formulary Medication 1 tab PRN BID PRN PO Severe pain; Start 10/30/16 at 19 :30; Stop 10/30/16 at 19:34; Status DC Risperidone (Risperdal) 4 mg DAILY PO Last administered on 11/05/16 08:34; Start 10/31/16 at 09:00 Sertraline HCl (Zoloft) 200 mg DAILY PO Last administered on 11/05/16 08:31; Start 10/31/16 at 09:00 Sevelamer Carbonate (Renvela) 800 mg TIDWMEALS PO Last administered on 08:33; Start 10/31/16 at 08:00 Ondansetron HCl (Zofran) 4 mg PRN Q6HRS PRN IV NAUSEA/VOMITING Last administered on 11/05/16 00:17; Start 10/30/16 at 19:30 Acetaminophen/ Hydrocodone Bitart (Lortab 5/325) 1 tab PRN Q4HRS PRN PO MILD PAIN Last administered on 11/05/16 09:17; Start 10/30/16 at 19:30; Stop at 09:29; Status DC Acetaminophen (Tylenol) 650 mg PRN Q6HRS PRN PO MILD PAIN / TEMP; Start at 19:30; Status UNV Heparin Sodium (Porcine) 5,000 unit Q8HRS SQ Last administered on 11/02/16 14: 00; Start 10/30/16 at 22:00; Stop 11/04/16 at 08:43; Status DC Acetaminophen (Tylenol) 650 mg PRN Q6HRS PRN PO FEVER Last administered on 11/02 18:08; Start 10/30/16 at 19:45 Hydralazine HCl (Apresoline) 10 mg PRN Q5MIN PRN IVP ELEVATED BP, SEE COMMENTS ; Start 10/30/16 at 19:45 Pantoprazole Sodium (Protonix) 40 mg DAILYAC PO Last administered on 11/05/16 08:33; Start 10/31/16 at 07:30 Ferrous Sulfate 300 mg BIDWMEALS PO Last administered on 11/03/16 08:36; Start 10/31/16 at 10:00; Stop 11/03/16 at 10:32; Status DC Polyethylene Glycol 17 gm 17 gm DAILY PO Last administered on 11/05/16 08:31; Start 10/31/16 at 12:00 Magnesium Sulfate/ Dextrose 50 ml @ 25 mls/hr PRN DAILY PRN IV for Mag < 1.7 on am labs; Start 10/31/16 at 10:45 Iron Sucrose/ Sodium Chloride (Venofer/Iv Sodium Chloride 0.9% 100ml) 110 ml @ 55 mls/hr 3X/WEEK IV Last administered on 11/03/16 09:13; Start 11/01/16 at 09 :00; Stop 11/10/16 at 10:59 Polyethylene Glycol (miraLAX PACKET) 17 gm PRN DAILY PRN PO CONSTIPATION; Start 10/31/16 at 10:45 Calcium Acetate 2001 mg 2,001 mg TIDWMEALS PO Last administered on 11/05/16 08 :33; Start 10/31/16 at 12:00 Sodium Chloride 1,000 ml @ 1,000 mls/hr Q1H PRN IV hypotension; Start 10/31/16 at 16:46; Stop 10/31/16 at 22:45; Status DC Albumin Human (Albuminar) 200 ml @ 200 mls/hr 1X PRN PRN IV Hypotension; Start 10/31/16 at 17:00; Stop 10/31/16 at 22:59; Status DC Acetaminophen (Tylenol) 500 mg 1X PRN PRN PO MILD PAIN / TEMP; Start 10/31/16 at 17:00; Stop 11/01/16 at 16:59; Status DC Diphenhydramine HCl (Benadryl) 25 mg 1X PRN PRN IV ITCHING; Start 10/31/16 at 17:00; Stop 11/01/16 at 16:59; Status DC Diphenhydramine HCl 25 mg 25 mg 1X PRN PRN IV ITCHING; Start 10/31/16 at 17:00 ; Stop 11/01/16 at 16:59; Status DC Sodium Chloride (Iv Sodium Chloride 0.9% 1000ml Bag) 1,000 ml @ 400 mls/hr Q2H30M PRN IV PATENCY; Start 10/31/16 at 16:46; Stop 11/01/16 at 04:45; Status DC Info (PHARMACY MONITORING -- do not chart) 1 each PRN DAILY PRN MC SEE COMMENTS ; Start 10/31/16 at 17:00; Stop 11/04/16 at 13:14; Status DC Docusate Sodium (Colace) 100 mg DAILY PO Last administered on 11/05/16 08:32; Start 11/01/16 at 09:00 Fentanyl Citrate 50 mcg 50 mcg 1X ONCE IV Last administered on 11/01/16 11:14 ; Start 11/01/16 at 11:15; Stop 11/01/16 at 11:16; Status DC Sodium Chloride (Iv Sodium Chloride 0.9% 1000ml Bag) 1,000 ml @ 1,000 mls/hr Q1H PRN IV hypotension; Start 11/02/16 at 07:39; Stop 11/02/16 at 13:38; Status DC Acetaminophen (Tylenol) 500 mg 1X PRN PRN PO MILD PAIN / TEMP; Start 11/02/16 at 07:45; Stop 11/03/16 at 07:44; Status DC Diphenhydramine HCl (Benadryl) 25 mg 1X PRN PRN IV ITCHING Last administered on 11/02/16 15:55; Start 11/02/16 at 07:45; Stop 11/03/16 at 07:44; Status DC Diphenhydramine HCl (Benadryl) 25 mg 1X PRN PRN IV ITCHING Last administered on 11/02/16 08:41; Start 11/02/16 at 07:45; Stop 11/03/16 at 07:44; Status DC Labetalol HCl 10 mg 10 mg PRN Q1HR PRN IVP SBP > 180; Start 11/02/16 at 07:45; Stop 11/03/16 at 07:44; Status DC Sodium Chloride (Iv Sodium Chloride 0.9% 1000ml Bag) 1,000 ml @ 400 mls/hr Q2H30M PRN IV PATENCY; Start 11/02/16 at 07:39; Stop 11/02/16 at 19:38; Status DC Info (PHARMACY MONITORING -- do not chart) 1 each PRN DAILY PRN MC SEE COMMENTS ; Start 11/02/16 at 07:45; Stop 11/02/16 at 07:51; Status DC Calcium Carbonate/ Glycine (Tums) 500 mg PRN AFTMEALHC PRN PO INDIGESTION; Start 11/02/16 at 15:15 Lidocaine (Lidoderm) 1 patch DAILY TD Last administered on 11/05/16 08:30; Start 11/02/16 at 15:45 Vancomycin HCl 1 each 1 each PRN DAILY PRN MC SEE COMMENTS Last administered on 11/04/16 14:19; Start 11/02/16 at 18:30 Piperacillin Sod/ Tazobactam Sod 2.25 gm/Sodium Chloride 50 ml @ 100 mls/hr Q8HRS IV Last administered on 11/05/16 06:31; Start 11/02/16 at 18:30 Vancomycin HCl/ Sodium Chloride (Iv Sodium Chloride 0.9% 500ml Bag) 500 ml @ 250 mls/hr 1X ONCE IV Last administered on 11/02/16 21:12; Start 11/02/16 at 18:30; Stop 11/02/16 at 20:29; Status DC Vancomycin HCl 1 each 1X ONCE MC Last administered on 11/04/16 06:00; Start 11/04/16 at 06:00; Stop 11/04/16 at 06:01; Status DC Diphenhydramine HCl (Benadryl) 25 mg PRN Q6HRS PRN PO ITCHING Last administered on 11/04/16 22:08; Start 11/03/16 at 02:00 Darbepoetin Sourav 60 mcg 60 mcg [id number] SQ Last administered on 11/03/16 21:42 ; Start 11/03/16 at 21:00 Sodium Chloride 1,000 ml @ 1,000 mls/hr Q1H PRN IV hypotension; Start 11/04/16 at 06:23; Stop 11/04/16 at 12:22; Status DC Albumin Human (Albuminar) 200 ml @ 200 mls/hr 1X PRN PRN IV Hypotension; Start 11/04/16 at 06:30; Stop 11/04/16 at 12:29; Status DC Acetaminophen (Tylenol) 500 mg 1X PRN PRN PO MILD PAIN / TEMP; Start 11/04/16 at 06:30; Stop 11/05/16 at 06:29; Status DC Diphenhydramine HCl (Benadryl) 25 mg 1X PRN PRN IV ITCHING Last administered on 11/04/16 06:57; Start 11/04/16 at 06:30; Stop 11/05/16 at 06:29; Status DC Diphenhydramine HCl (Benadryl) 25 mg 1X PRN PRN IV ITCHING; Start 11/04/16 at 06:30; Stop 11/05/16 at 06:29; Status DC Labetalol HCl (Normodyne) 10 mg PRN Q1HR PRN IVP SBP > 180; Start 11/04/16 at 06:30; Stop 11/05/16 at 06:29; Status DC Clonidine HCl (Catapres) 0.1 mg 1X PRN PRN PO SBP > 180; Start 11/04/16 at 06: 30; Stop 11/05/16 at 06:29; Status DC Info 1 each 1 each PRN DAILY PRN MC SEE COMMENTS; Start 11/04/16 at 06:30 Vancomycin HCl/ Sodium Chloride (Iv Sodium Chloride 0.9% 100ml) 100 ml @ 100 mls/hr QTUTHSA IV Last administered on 11/04/16t 16:08; Start 11/04/16 at 16:00 Acetaminophen/ Hydrocodone Bitart (Lortab 7.5/325) 1 tab PRN Q6HRS PRN PO PAIN ; Start 11/05/16 at 09:30 Morphine Sulfate 1 mg PRN Q4HRS PRN IV PAIN; Start 11/05/16 at 09:30 Active Scripts Active Percocet 5-325 Mg Tablet (Oxycodone/Acetaminophen) 1 Each Tablet 1 Tab PO QID PRN Alprazolam 0.5 Mg Tablet 0.5 Mg PO Q8HRS PRN Oxycodone Hcl 10 Mg Tablet 1 Tab PO PRN BID PRN Olanzapine Odt (Olanzapine) 10 Mg Tab.rapdis 10 Mg PO QHS Lamotrigine 25 Mg Tablet 25 Mg PO DAILY 30 Days Zoloft (Sertraline Hcl) 100 Mg Tablet 200 Mg PO DAILY Risperidone 4 Mg Tablet 4 Mg PO DAILY Zofran Odt (Ondansetron) 4 Mg Tab.rapdis 1 Tab SL Q8HRS Reported NICODERM CQ 21mg (Nicotine) 1 Each Patch.td24 1 Patch TP DAILY Depakote (Divalproex Sodium) 250 Mg Tablet.dr 250 Mg PO TID Amlodipine Besylate 10 Mg Tablet 10 Mg PO DAILY Hydralazine Hcl 50 Mg Tablet 50 Mg PO QID Renagel (Sevelamer Hcl) 800 Mg Tablet 800 Mg PO TIDWMEALS Simvastatin 40 Mg Tablet 40 Mg PO HS Levothyroxine Sodium 125 Mcg Tablet 125 Mcg PO DAILYAC Gabapentin 300 Mg Capsule 300 Mg PO DAILY Phoslo (Calcium Acetate) 667 Mg Capsule 667 Mg PO TIDWMEALS Carvedilol 12.5 Mg Tablet 12.5 Mg PO BIDWMEALS Vitals/I & O Vital Sign - Last 24 Hours 11/04/16 11/04/16 11/04/16 11/04/16 14:19 14:20 15:00 17:13 Temp 98.8 98.8 Pulse 65 71 71 Resp 17 B/P 146/78 141/69 141/69 Pulse Ox 99 97 O2 Delivery Room Air Room Air 3/25/17 11/04/16 11/04/16 11/04/16 17:14 18:10 19:00 20:00 Temp 98.8 98.8 Pulse 71 76 Resp 20 B/P 141/69 121/46 Pulse Ox 97 98 O2 Delivery Room Air Room Air Room Air 11/04/16 11/04/16 11/05/16 11/05/16 21:15 23:00 00:14 01:14 Temp 98.2 98.2 Pulse 72 72 Resp 20 18 18 B/P 144/66 136/69 Pulse Ox 99 99 100 O2 Delivery Room Air Room Air Room Air 11/05/16 11/05/16 11/05/16 11/05/16 03:18 08:32 08:32 08:34 Temp 98.6 98.6 Pulse 68 68 68 68 Resp 20 B/P 138/74 138/74 138/74 138/74 Pulse Ox 100 O2 Delivery Room Air 11/05/16 09:17 Pulse Ox 100 O2 Delivery Room Air Intake and Output 11/04/16 11/04/16 11/05/16 15:00 23:00 07:00 Intake Total 540 ml 950 ml 360 ml Balance 540 ml 950 ml 360 ml TIFFANIE JASON MD Nov 05, 2016 11:54
[2016-11-05] MEDS: MORPHINE SULFATE 2 MG/ML DISP.SYRIN. IV PRN ×2 (12:57→19:31)
[2016-11-05] MEDS: HYDROCODONE/APAP 7.5/325MG TABLET. PO PRN (17:22)
[2016-11-05] MEDS: OLANZAPINE 5 MG TABLET. PO SCH (20:26)
[2016-11-05] MEDS: ATORVASTATIN CALCIUM 20 MG TABLET PO SCH (20:26)
--- NOTE | 2016-11-05 21:33 | PDOC ---
Provider Note Provider Note RENAL F/U : TAMY Doing OK No new issues reported. Resting. VSS Afberile Lungs : Non labored CVS :RRR ESRD CPM INEZ MORELOS MD Nov 05, 2016 21:33
[2016-11-06] VITALS (11 sets, daily range): BP systolic 117–150; BP diastolic 59–76
[2016-11-06] MEDS: HYDROCODONE/APAP 7.5/325MG TABLET. PO PRN ×3 (00:23→16:29)
[2016-11-06] MEDS: MORPHINE SULFATE 2 MG/ML DISP.SYRIN. IV PRN ×4 (01:18→18:06)
[2016-11-06 05:54] LABS: BASO % 0 % (0-3); EOS % 2 % (0-3); LYMPH # 1.8 x10^3/uL (1.0-4.8); LYMPH % 24 % (24-48); MEAN CORPUSCULAR HEMOGLOBIN 30 pg (25-35); MEAN CORPUSCULAR HGB CONC 34 g/dL (31-37); MEAN CORPUSCULAR VOLUME 88 fL (79-100); MONO % 14 % (0-9); NEUT % 60 % (31-73); PLATELET COUNT 144 x10^3/uL (140-400); RED BLOOD COUNT 2.22 x10^6/uL (3.50-5.40); RED CELL DISTRIBUTION WIDTH 15.9 % (11.5-14.5); WHITE BLOOD COUNT 7.6 x10^3/uL (4.0-11.0)
[2016-11-06] MEDS: PIPERACILLIN/TAZOBACTAM 2.25 GM in IV NORMAL SALINE 50ML 50 ML IV SCH (05:54)
[2016-11-06] MEDS: LEVOTHYROXINE 125 MCG TABLET PO SCH (05:54)
[2016-11-06] MEDS: PANTOPRAZOLE 40 MG TABLET. PO SCH (05:54)
[2016-11-06 05:57] LABS: ALBUMIN 2.5 g/dL (3.4-5.0); CALCIUM 9.1 mg/dL (8.5-10.1); CREATININE 5.9 mg/dL (0.6-1.0); PHOSPHORUS 3.3 mg/dL (2.6-4.7); POTASSIUM 5.2 mmol/L (3.5-5.1)
[2016-11-06 06:11] LABS: HEMOGLOBIN 6.7 g/dL (12.0-15.5)
[2016-11-06 06:12] LABS: HEMATOCRIT 19.9 % (36.0-47.0)
[2016-11-06 06:46] LABS: NEG OBC FOB NEG; POS OBC FOB POS
[2016-11-06] MEDS: ONDANSETRON PF 4 MG/2 ML VIAL. IV PRN (07:59)
[2016-11-06] MEDS: POLYETHYLENE GLYCOL 3350 17 GM PACKET. PO SCH (09:00)
[2016-11-06] MEDS: DOCUSATE SODIUM 100 MG CAPSULE PO SCH (09:00)
[2016-11-06] MEDS: CALCIUM ACETATE 667 MG CAPSULE PO SCH ×3 (09:35→16:30)
[2016-11-06] MEDS: LIDOCAINE (700MG/PATCH) PATCH. TD SCH (09:39)
[2016-11-06] MEDS: NICOTINE 21MG PATCH. TD SCH (09:41)
[2016-11-06] MEDS: ALPRAZOLAM 0.5 MG TABLET PO PRN ×2 (09:42→21:19)
[2016-11-06] MEDS: SERTRALINE 50 MG TABLET. PO SCH (09:42)
[2016-11-06] MEDS: GABAPENTIN 300 MG CAPSULE. PO SCH (09:42)
[2016-11-06] MEDS: lamoTRIgine 25 MG TABLET. PO SCH (09:43)
[2016-11-06] MEDS: risperiDONE 1 MG TABLET. PO SCH (09:43)
[2016-11-06] MEDS: DIVALPROEX DELAYED RELEASE 250 MG TABLET.DR. PO SCH ×3 (09:43→21:19)
[2016-11-06] MEDS: SEVELAMER CARBONATE 800 MG TABLET. PO SCH ×3 (09:43→16:30)
[2016-11-06] MEDS: AMLODIPINE BESYLATE 10 MG TABLET PO SCH (10:02)
[2016-11-06] MEDS: HYDRALAZINE 50 MG TABLET PO SCH ×4 (10:03→21:20)
[2016-11-06] MEDS: CARVEDILOL 12.5 MG TABLET PO SCH ×2 (10:03→16:33)
[2016-11-06] MEDS: IRON SUCROSE COMPLEX 200 MG in IV NORMAL SALINE 100ML 100 ML IV SCH (10:04)
--- NOTE | 2016-11-06 11:04 | PDOC ---
PROGRESS NOTES Chief Complaint Chief Complaint anemia, recurrent 1. abdominal pain, acute on chronic 2. ESRD on HD 3. Type 2 diabetes 4. High cholesterol 5. Hypertension 6. Hypothyroidism 7. Hepatitis C 8. h/o multisubstance Abuse 9. Chronic back and hip pain 10. Acute on chronic anemia, with ESRD, recent GIB 11. NON compliance 12. H/O Schizophrenia, suicidal idea 13. Homelessness 14. constipation Plan Drop in hemoglobin despite blood transfusion , Possible EGD in AM HD in am NPO, non compliance with recommendations Prognosis poor labs reviewed, History of Present Illness History of Present Illness no bloody diarrhea no fever Vitals Vitals Vital Signs Date Time Temp Pulse Resp B/P Pulse Ox O2 Delivery O2 Flow Rate FiO2 11/06/16 10:26 97.9 69 14 150/76 98 Room Air 97.9 Physical Exam General: Alert, Oriented X3, Cooperative, No acute distress Heart: Regular rate, Normal S1, Normal S2, No murmurs, Gallops Lungs: Clear Abdomen: Normal bowel sounds, Soft, No tenderness, No hepatosplenomegaly, No masses Extremities: No clubbing, No cyanosis, No edema, Normal pulses, No tenderness/ swelling Skin: No rashes, No significant lesion Labs LABS Laboratory Tests Test 11/06/16 05:00 11/06/16 05:05 Stool Occult Blood Positive (NEG) White Blood Count 7.6x10^3/uL (4.0-11.0) Red Blood Count 2.22x10^6/uL (3.50-5.40) Hemoglobin 6.7g/dL (12.0-15.5) Hematocrit 19.9% (36.0-47.0) Mean Corpuscular Volume 88fL (79-100) Mean Corpuscular Hemoglobin 30pg (25-35) Mean Corpuscular Hemoglobin Concent 34g/dL (31-37) Red Cell Distribution Width 15.9% (11.5-14.5) Platelet Count 144x10^3/uL (140-400) Neutrophils (%) (Auto) 60% (31-73) Lymphocytes (%) (Auto) 24% (24-48) Monocytes (%) (Auto) 14% (0-9) Eosinophils (%) (Auto) 2% (0-3) Basophils (%) (Auto) 0% (0-3) Neutrophils # (Auto) 4.5x10^3uL (1.8-7.7) Lymphocytes # (Auto) 1.8x10^3/uL (1.0-4.8) Monocytes # (Auto) 1.0x10^3/uL (0.0-1.1) Eosinophils # (Auto) 0.2x10^3/uL (0.0-0.7) Basophils # (Auto) 0.0x10^3/uL (0.0-0.2) Sodium Level 138mmol/L (136-145) Potassium Level 5.2mmol/L (3.5-5.1) Chloride Level 101mmol/L (98-107) Carbon Dioxide Level 27mmol/L (21-32) Anion Gap 10 (6-14) Blood Urea Nitrogen 100mg/dL (7-20) Creatinine 5.9mg/dL (0.6-1.0) Estimated GFR (Cockcroft-Gault) 9.0 Glucose Level 134mg/dL (70-99) Calcium Level 9.1mg/dL (8.5-10.1) Phosphorus Level 3.3mg/dL (2.6-4.7) Albumin 2.5g/dL (3.4-5.0) Assessment and Plan Assessmemt and Plan Problems Medical Problems: (1) Abdominal pain Status: Acute (2) ESRD (end stage renal disease) Status: Acute Problems: Comment Review of Relevant I have reviewed the following items hemal (where applicable) has been applied. Labs Laboratory Tests Test 11/05/16 04:33 11/06/16 05:00 11/06/16 05:05 White Blood Count 6.7x10^3/uL (4.0-11.0) 7.6x10^3/uL (4.0-11.0) Red Blood Count 2.23x10^6/uL (3.50-5.40) 2.22x10^6/uL (3.50-5.40) Hemoglobin 6.5g/dL (12.0-15.5) 6.7g/dL (12.0-15.5) Hematocrit 19.7% (36.0-47.0) 19.9% (36.0-47.0) Mean Corpuscular Volume 89fL (79-100) 88fL (79-100) Mean Corpuscular Hemoglobin 29pg (25-35) 30pg (25-35) Mean Corpuscular Hemoglobin Concent 33g/dL (31-37) 34g/dL (31-37) Red Cell Distribution Width 16.0% (11.5-14.5) 15.9% (11.5-14.5) Platelet Count 130x10^3/uL (140-400) 144x10^3/uL (140-400) Neutrophils (%) (Auto) 58% (31-73) 60% (31-73) Lymphocytes (%) (Auto) 24% (24-48) 24% (24-48) Monocytes (%) (Auto) 16% (0-9) 14% (0-9) Eosinophils (%) (Auto) 2% (0-3) 2% (0-3) Basophils (%) (Auto) 1% (0-3) 0% (0-3) Neutrophils # (Auto) 3.9x10^3uL (1.8-7.7) 4.5x10^3uL (1.8-7.7) Lymphocytes # (Auto) 1.6x10^3/uL (1.0-4.8) 1.8x10^3/uL (1.0-4.8) Monocytes # (Auto) 1.1x10^3/uL (0.0-1.1) 1.0x10^3/uL (0.0-1.1) Eosinophils # (Auto) 0.1x10^3/uL (0.0-0.7) 0.2x10^3/uL (0.0-0.7) Basophils # (Auto) 0.0x10^3/uL (0.0-0.2) 0.0x10^3/uL (0.0-0.2) Sodium Level 140mmol/L (136-145) 138mmol/L (136-145) Potassium Level 4.5mmol/L (3.5-5.1) 5.2mmol/L (3.5-5.1) Chloride Level 103mmol/L (98-107) 101mmol/L (98-107) Carbon Dioxide Level 29mmol/L (21-32) 27mmol/L (21-32) Anion Gap 8 (6-14) 10 (6-14) Blood Urea Nitrogen 61mg/dL (7-20) 100mg/dL (7-20) Creatinine 3.9mg/dL (0.6-1.0) 5.9mg/dL (0.6-1.0) Estimated GFR (Cockcroft-Gault) 14.5 9.0 Glucose Level 132mg/dL (70-99) 134mg/dL (70-99) Calcium Level 8.6mg/dL (8.5-10.1) 9.1mg/dL (8.5-10.1) Phosphorus Level 2.4mg/dL (2.6-4.7) 3.3mg/dL (2.6-4.7) Magnesium Level 1.8mg/dL (1.8-2.4) Albumin 2.3g/dL (3.4-5.0) 2.5g/dL (3.4-5.0) Stool Occult Blood Positive (NEG) Laboratory Tests Test 11/06/16 05:00 11/06/16 05:05 Stool Occult Blood Positive (NEG) White Blood Count 7.6x10^3/uL (4.0-11.0) Red Blood Count 2.22x10^6/uL (3.50-5.40) Hemoglobin 6.7g/dL (12.0-15.5) Hematocrit 19.9% (36.0-47.0) Mean Corpuscular Volume 88fL (79-100) Mean Corpuscular Hemoglobin 30pg (25-35) Mean Corpuscular Hemoglobin Concent 34g/dL (31-37) Red Cell Distribution Width 15.9% (11.5-14.5) Platelet Count 144x10^3/uL (140-400) Neutrophils (%) (Auto) 60% (31-73) Lymphocytes (%) (Auto) 24% (24-48) Monocytes (%) (Auto) 14% (0-9) Eosinophils (%) (Auto) 2% (0-3) Basophils (%) (Auto) 0% (0-3) Neutrophils # (Auto) 4.5x10^3uL (1.8-7.7) Lymphocytes # (Auto) 1.8x10^3/uL (1.0-4.8) Monocytes # (Auto) 1.0x10^3/uL (0.0-1.1) Eosinophils # (Auto) 0.2x10^3/uL (0.0-0.7) Basophils # (Auto) 0.0x10^3/uL (0.0-0.2) Sodium Level 138mmol/L (136-145) Potassium Level 5.2mmol/L (3.5-5.1) Chloride Level 101mmol/L (98-107) Carbon Dioxide Level 27mmol/L (21-32) Anion Gap 10 (6-14) Blood Urea Nitrogen 100mg/dL (7-20) Creatinine 5.9mg/dL (0.6-1.0) Estimated GFR (Cockcroft-Gault) 9.0 Glucose Level 134mg/dL (70-99) Calcium Level 9.1mg/dL (8.5-10.1) Phosphorus Level 3.3mg/dL (2.6-4.7) Albumin 2.5g/dL (3.4-5.0) Microbiology 11/02/16 Blood Culture - Preliminary, Resulted NO GROWTH AFTER 4 DAYS 10/30/16 Urine Culture - Final, Complete 10/30/16 Urine Culture Result 1 (CHRISTOPH) - Final, Complete 10/30/16 Urine Culture Result 2 (CHRISTOPH) - Final, Complete Medications Current Medications Aspirin (Children'S Aspirin) 324 mg 1X ONCE PO Last administered on 10/30/16 17:05; Start 10/30/16 at 17:00; Stop 10/30/16 at 17:01; Status DC Alprazolam (Xanax) 0.5 mg PRN Q8HRS PRN PO ANXIETY / AGITATION Last administered on 11/06/16 09:42; Start 10/30/16 at 19:30 Amlodipine Besylate (Norvasc) 10 mg DAILY PO Last administered on 11/06/16 10: 02; Start 10/31/16 at 09:00 Calcium Acetate (Phoslo) 667 mg TIDWMEALS PO Last administered on 10/31/16 08: 43; Start 10/31/16 at 08:00; Stop 10/31/16 at 10:52; Status DC Carvedilol (Coreg) 12.5 mg BIDWMEALS PO Last administered on 11/06/16 10:03; Start 10/31/16 at 08:00 Divalproex Sodium (Depakote) 250 mg TID PO Last administered on 11/06/16 09:43 ; Start 10/30/16 at 21:00 Gabapentin (Neurontin) 300 mg DAILY PO Last administered on 11/06/16 09:42; Start 10/31/16 at 09:00 Hydralazine HCl (Apresoline) 50 mg QID PO Last administered on 11/06/16 10:03 ; Start 10/30/16 at 21:00 Lamotrigine (LaMICtal) 25 mg DAILY PO Last administered on 11/06/16 09:43; Start 10/31/16 at 09:00 Levothyroxine Sodium (Synthroid) 125 mcg DAILY07 PO Last administered on 05:54; Start 10/31/16 at 07:00 Nicotine (Nicoderm Cq 21mg) 1 patch DAILY TD Last administered on 11/06/16 09: 41; Start 10/31/16 at 09:00 Atorvastatin Calcium (Lipitor) 20 mg QHS PO Last administered on 11/05/16 20: 26; Start 10/30/16 at 22:00 Olanzapine (Zyprexa) 10 mg QHS PO Last administered on 11/05/16 20:26; Start 10/30/16 at 21:30 Non-Formulary Medication 1 tab PRN BID PRN PO Severe pain; Start 10/30/16 at 19 :30; Stop 10/30/16 at 19:34; Status DC Risperidone (Risperdal) 4 mg DAILY PO Last administered on 11/06/16 09:43; Start 10/31/16 at 09:00 Sertraline HCl (Zoloft) 200 mg DAILY PO Last administered on 11/06/16 09:42; Start 10/31/16 at 09:00 Sevelamer Carbonate (Renvela) 800 mg TIDWMEALS PO Last administered on 09:43; Start 10/31/16 at 08:00 Ondansetron HCl (Zofran) 4 mg PRN Q6HRS PRN IV NAUSEA/VOMITING Last administered on 11/06/16 07:59; Start 10/30/16 at 19:30 Acetaminophen/ Hydrocodone Bitart (Lortab 5/325) 1 tab PRN Q4HRS PRN PO MILD PAIN Last administered on 11/05/16 09:17; Start 10/30/16 at 19:30; Stop at 09:29; Status DC Acetaminophen (Tylenol) 650 mg PRN Q6HRS PRN PO MILD PAIN / TEMP; Start at 19:30; Status UNV Heparin Sodium (Porcine) 5,000 unit Q8HRS SQ Last administered on 11/02/16 14: 00; Start 10/30/16 at 22:00; Stop 11/04/16 at 08:43; Status DC Acetaminophen (Tylenol) 650 mg PRN Q6HRS PRN PO FEVER Last administered on 11/02 18:08; Start 10/30/16 at 19:45 Hydralazine HCl (Apresoline) 10 mg PRN Q5MIN PRN IVP ELEVATED BP, SEE COMMENTS ; Start 10/30/16 at 19:45 Pantoprazole Sodium (Protonix) 40 mg DAILYAC PO Last administered on 11/06/16 05:54; Start 10/31/16 at 07:30 Ferrous Sulfate 300 mg BIDWMEALS PO Last administered on 11/03/16 08:36; Start 10/31/16 at 10:00; Stop 11/03/16 at 10:32; Status DC Polyethylene Glycol 17 gm 17 gm DAILY PO Last administered on 11/05/16 08:31; Start 10/31/16 at 12:00 Magnesium Sulfate/ Dextrose 50 ml @ 25 mls/hr PRN DAILY PRN IV for Mag < 1.7 on am labs; Start 10/31/16 at 10:45 Iron Sucrose/ Sodium Chloride (Venofer/Iv Sodium Chloride 0.9% 100ml) 110 ml @ 55 mls/hr 3X/WEEK IV Last administered on 11/06/16 10:04; Start 11/01/16 at 09 :00; Stop 11/10/16 at 10:59 Polyethylene Glycol (miraLAX PACKET) 17 gm PRN DAILY PRN PO CONSTIPATION; Start 10/31/16 at 10:45 Calcium Acetate 2001 mg 2,001 mg TIDWMEALS PO Last administered on 11/06/16 09 :35; Start 10/31/16 at 12:00 Sodium Chloride 1,000 ml @ 1,000 mls/hr Q1H PRN IV hypotension; Start 10/31/16 at 16:46; Stop 10/31/16 at 22:45; Status DC Albumin Human (Albuminar) 200 ml @ 200 mls/hr 1X PRN PRN IV Hypotension; Start 10/31/16 at 17:00; Stop 10/31/16 at 22:59; Status DC Acetaminophen (Tylenol) 500 mg 1X PRN PRN PO MILD PAIN / TEMP; Start 10/31/16 at 17:00; Stop 11/01/16 at 16:59; Status DC Diphenhydramine HCl (Benadryl) 25 mg 1X PRN PRN IV ITCHING; Start 10/31/16 at 17:00; Stop 11/01/16 at 16:59; Status DC Diphenhydramine HCl 25 mg 25 mg 1X PRN PRN IV ITCHING; Start 10/31/16 at 17:00 ; Stop 11/01/16 at 16:59; Status DC Sodium Chloride (Iv Sodium Chloride 0.9% 1000ml Bag) 1,000 ml @ 400 mls/hr Q2H30M PRN IV PATENCY; Start 10/31/16 at 16:46; Stop 11/01/16 at 04:45; Status DC Info (PHARMACY MONITORING -- do not chart) 1 each PRN DAILY PRN MC SEE COMMENTS ; Start 10/31/16 at 17:00; Stop 11/04/16 at 13:14; Status DC Docusate Sodium (Colace) 100 mg DAILY PO Last administered on 11/05/16 08:32; Start 11/01/16 at 09:00 Fentanyl Citrate 50 mcg 50 mcg 1X ONCE IV Last administered on 11/01/16 11:14 ; Start 11/01/16 at 11:15; Stop 11/01/16 at 11:16; Status DC Sodium Chloride (Iv Sodium Chloride 0.9% 1000ml Bag) 1,000 ml @ 1,000 mls/hr Q1H PRN IV hypotension; Start 11/02/16 at 07:39; Stop 11/02/16 at 13:38; Status DC Acetaminophen (Tylenol) 500 mg 1X PRN PRN PO MILD PAIN / TEMP; Start 11/02/16 at 07:45; Stop 11/03/16 at 07:44; Status DC Diphenhydramine HCl (Benadryl) 25 mg 1X PRN PRN IV ITCHING Last administered on 11/02/16 15:55; Start 11/02/16 at 07:45; Stop 11/03/16 at 07:44; Status DC Diphenhydramine HCl (Benadryl) 25 mg 1X PRN PRN IV ITCHING Last administered on 11/02/16 08:41; Start 11/02/16 at 07:45; Stop 11/03/16 at 07:44; Status DC Labetalol HCl 10 mg 10 mg PRN Q1HR PRN IVP SBP > 180; Start 11/02/16 at 07:45; Stop 11/03/16 at 07:44; Status DC Sodium Chloride (Iv Sodium Chloride 0.9% 1000ml Bag) 1,000 ml @ 400 mls/hr Q2H30M PRN IV PATENCY; Start 11/02/16 at 07:39; Stop 11/02/16 at 19:38; Status DC Info (PHARMACY MONITORING -- do not chart) 1 each PRN DAILY PRN MC SEE COMMENTS ; Start 11/02/16 at 07:45; Stop 11/02/16 at 07:51; Status DC Calcium Carbonate/ Glycine (Tums) 500 mg PRN AFTMEALHC PRN PO INDIGESTION; Start 11/02/16 at 15:15 Lidocaine (Lidoderm) 1 patch DAILY TD Last administered on 11/06/16 09:39; Start 11/02/16 at 15:45 Vancomycin HCl 1 each 1 each PRN DAILY PRN MC SEE COMMENTS Last administered on 11/04/16 14:19; Start 11/02/16 at 18:30 Piperacillin Sod/ Tazobactam Sod 2.25 gm/Sodium Chloride 50 ml @ 100 mls/hr Q8HRS IV Last administered on 11/06/16 05:54; Start 11/02/16 at 18:30 Vancomycin HCl/ Sodium Chloride (Iv Sodium Chloride 0.9% 500ml Bag) 500 ml @ 250 mls/hr 1X ONCE IV Last administered on 11/02/16 21:12; Start 11/02/16 at 18:30; Stop 11/02/16 at 20:29; Status DC Vancomycin HCl 1 each 1X ONCE MC Last administered on 11/04/16 06:00; Start 11/04/16 at 06:00; Stop 11/04/16 at 06:01; Status DC Diphenhydramine HCl (Benadryl) 25 mg PRN Q6HRS PRN PO ITCHING Last administered on 11/04/16 22:08; Start 11/03/16 at 02:00 Darbepoetin Sourav 60 mcg 60 mcg WEEKLYHS SQ Last administered on 11/03/16 21:42 ; Start 11/03/16 at 21:00 Sodium Chloride 1,000 ml @ 1,000 mls/hr Q1H PRN IV hypotension; Start 11/04/16 at 06:23; Stop 11/04/16 at 12:22; Status DC Albumin Human (Albuminar) 200 ml @ 200 mls/hr 1X PRN PRN IV Hypotension; Start 11/04/16 at 06:30; Stop 11/04/16 at 12:29; Status DC Acetaminophen (Tylenol) 500 mg 1X PRN PRN PO MILD PAIN / TEMP; Start 11/04/16 at 06:30; Stop 11/05/16 at 06:29; Status DC Diphenhydramine HCl (Benadryl) 25 mg 1X PRN PRN IV ITCHING Last administered on 11/04/16 06:57; Start 11/04/16 at 06:30; Stop 11/05/16 at 06:29; Status DC Diphenhydramine HCl (Benadryl) 25 mg 1X PRN PRN IV ITCHING; Start 11/04/16 at 06:30; Stop 11/05/16 at 06:29; Status DC Labetalol HCl (Normodyne) 10 mg PRN Q1HR PRN IVP SBP > 180; Start 11/04/16 at 06:30; Stop 11/05/16 at 06:29; Status DC Clonidine HCl (Catapres) 0.1 mg 1X PRN PRN PO SBP > 180; Start 11/04/16 at 06: 30; Stop 11/05/16 at 06:29; Status DC Info 1 each 1 each PRN DAILY PRN MC SEE COMMENTS; Start 11/04/16 at 06:30 Vancomycin HCl/ Sodium Chloride (Iv Sodium Chloride 0.9% 100ml) 100 ml @ 100 mls/hr QTUTHSA IV Last administered on 11/04/16 16:08; Start 11/04/16 at 16:00 Acetaminophen/ Hydrocodone Bitart (Lortab 7.5/325) 1 tab PRN Q6HRS PRN PO PAIN Last administered on 11/06/16 07:58; Start 11/05/16 at 09:30 Morphine Sulfate 1 mg PRN Q4HRS PRN IV PAIN Last administered on 11/06/16 05: 54; Start 11/05/16 at 09:30 Active Scripts Active Percocet 5-325 Mg Tablet (Oxycodone/Acetaminophen) 1 Each Tablet 1 Tab PO QID PRN Alprazolam 0.5 Mg Tablet 0.5 Mg PO Q8HRS PRN Oxycodone Hcl 10 Mg Tablet 1 Tab PO PRN BID PRN Olanzapine Odt (Olanzapine) 10 Mg Tab.rapdis 10 Mg PO QHS Lamotrigine 25 Mg Tablet 25 Mg PO DAILY 30 Days Zoloft (Sertraline Hcl) 100 Mg Tablet 200 Mg PO DAILY Risperidone 4 Mg Tablet 4 Mg PO DAILY Zofran Odt (Ondansetron) 4 Mg Tab.rapdis 1 Tab SL Q8HRS Reported NICODERM CQ 21mg (Nicotine) 1 Each Patch.td24 1 Patch TP DAILY Depakote (Divalproex Sodium) 250 Mg Tablet.dr 250 Mg PO TID Amlodipine Besylate 10 Mg Tablet 10 Mg PO DAILY Hydralazine Hcl 50 Mg Tablet 50 Mg PO QID Renagel (Sevelamer Hcl) 800 Mg Tablet 800 Mg PO TIDWMEALS Simvastatin 40 Mg Tablet 40 Mg PO HS Levothyroxine Sodium 125 Mcg Tablet 125 Mcg PO DAILYAC Gabapentin 300 Mg Capsule 300 Mg PO DAILY Phoslo (Calcium Acetate) 667 Mg Capsule 667 Mg PO TIDWMEALS Carvedilol 12.5 Mg Tablet 12.5 Mg PO BIDWMEALS Vitals/I & O Vital Sign - Last 24 Hours 11/05/16 11/05/16 11/05/16 11/05/16 12:34 12:54 12:57 13:11 Temp 98.0 97.5 98.0 97.5 Pulse 81 71 68 Resp 20 20 B/P 137/72 137/72 145/64 Pulse Ox 98 O2 Delivery Room Air 11/05/16 11/05/16 11/05/16 11/05/16 13:27 14:20 15:00 15:29 Temp 98.1 98.1 98.1 98.1 98.1 98.1 Pulse 67 67 64 Resp 18 20 B/P 145/66 145/66 135/64 Pulse Ox 98 98 O2 Delivery Room Air 11/05/16 11/05/16 11/05/16 11/05/16 16:36 17:21 17:21 17:22 Temp 99.3 99.3 Pulse 71 71 71 Resp 20 B/P 137/70 137/70 137/70 Pulse Ox 98 98 O2 Delivery Room Air Room Air 11/05/16 11/05/16 11/05/16 11/05/16 19:00 19:31 20:25 20:25 Temp 98.2 98.2 Pulse 70 70 Resp 20 20 B/P 137/71 137/71 Pulse Ox 98 O2 Delivery Room Air Room Air Room Air 11/05/16 11/06/16 11/06/16 11/06/16 23:00 00:23 01:18 03:04 Temp 98.2 98.0 98.2 98.0 Pulse 67 68 Resp 20 16 20 20 B/P 130/68 133/73 Pulse Ox 95 96 95 O2 Delivery Room Air Room Air Room Air Room Air 11/06/16 11/06/16 11/06/16 11/06/16 05:54 06:30 07:00 07:58 Temp 98.5 98.5 Pulse 75 Resp 20 20 16 B/P 134/71 Pulse Ox 100 100 O2 Delivery Room Air Room Air Room Air Room Air 11/06/16 11/06/16 11/06/16 11/06/16 08:00 08:58 10:02 10:03 Pulse 73 73 Resp 18 B/P 166/73 166/73 Pulse Ox 100 O2 Delivery Room Air Room Air 11/06/16 11/06/16 10:03 10:26 Temp 97.9 97.9 Pulse 73 69 Resp 14 B/P 166/73 150/76 Pulse Ox 98 O2 Delivery Room Air Intake and Output 11/05/16 11/05/16 11/06/16 15:00 23:00 07:00 Intake Total 529 ml 1188 ml 530 ml Balance 529 ml 1188 ml 530 ml BRANDI JARA MD Nov 06, 2016 11:04
--- NOTE | 2016-11-06 11:30 | PDOC ---
Infectious Disease Note Subjective Subjective better ROS ROS GEN: Denies fevers, chills, sweats HEENT: Denies blurred vision, sore throat CV: Denies chest pain RESP: Denies shortness of air, cough GI: Denies n/v/d NEURO: Denies confusion, dizziness MSK: Denies weakness, joint pain/swelling Vital Sign Vital Signs Vital Signs Date Time Temp Pulse Resp B/P Pulse Ox O2 Delivery O2 Flow Rate FiO2 11/06/16 10:26 97.9 69 14 150/76 98 Room Air 97.9 Physical Exam PHYSICAL EXAM GENERAL: NAD, Alert HEENT: PERRL, OC/OP NECK: Supple, no JVD, no LN LUNGS: Clear HEART: S1S2, no gallop, no murmur ABD: Soft, NT, no organomegaly, no rebound EXT: No edema, no cyanosis COMBAT SYSTEMS ENGINEER: Alert, oriented x 3, no focal neurologic deficit SKIN: No rash IV: ok Labs Lab Laboratory Tests Test 11/06/16 05:00 11/06/16 05:05 Stool Occult Blood Positive (NEG) White Blood Count 7.6x10^3/uL (4.0-11.0) Red Blood Count 2.22x10^6/uL (3.50-5.40) Hemoglobin 6.7g/dL (12.0-15.5) Hematocrit 19.9% (36.0-47.0) Mean Corpuscular Volume 88fL (79-100) Mean Corpuscular Hemoglobin 30pg (25-35) Mean Corpuscular Hemoglobin Concent 34g/dL (31-37) Red Cell Distribution Width 15.9% (11.5-14.5) Platelet Count 144x10^3/uL (140-400) Neutrophils (%) (Auto) 60% (31-73) Lymphocytes (%) (Auto) 24% (24-48) Monocytes (%) (Auto) 14% (0-9) Eosinophils (%) (Auto) 2% (0-3) Basophils (%) (Auto) 0% (0-3) Neutrophils # (Auto) 4.5x10^3uL (1.8-7.7) Lymphocytes # (Auto) 1.8x10^3/uL (1.0-4.8) Monocytes # (Auto) 1.0x10^3/uL (0.0-1.1) Eosinophils # (Auto) 0.2x10^3/uL (0.0-0.7) Basophils # (Auto) 0.0x10^3/uL (0.0-0.2) Sodium Level 138mmol/L (136-145) Potassium Level 5.2mmol/L (3.5-5.1) Chloride Level 101mmol/L (98-107) Carbon Dioxide Level 27mmol/L (21-32) Anion Gap 10 (6-14) Blood Urea Nitrogen 100mg/dL (7-20) Creatinine 5.9mg/dL (0.6-1.0) Estimated GFR (Cockcroft-Gault) 9.0 Glucose Level 134mg/dL (70-99) Calcium Level 9.1mg/dL (8.5-10.1) Phosphorus Level 3.3mg/dL (2.6-4.7) Albumin 2.5g/dL (3.4-5.0) Objective Assessment Fever Left flank/groin pain ESRD Homeless Plan Plan of Care d/c vanc and Renata supportive care d/c home JULIA Bernabe MD Nov 06, 2016 11:30
--- NOTE | 2016-11-06 11:59 | PDOC ---
Renal-Progress Notes Subjective Notes Notes NOTHING NEW History of Present Illness Hx of present illness STABLE Vitals Vitals Vital Signs Date Time Temp Pulse Resp B/P Pulse Ox O2 Delivery O2 Flow Rate FiO2 11/06/16 10:26 97.9 69 14 150/76 98 Room Air 97.9 Weight Weight [ ] I.O. Intake and Output Intake and Output 11/06/16 07:00 Intake Total 2247 ml Balance 2247 ml Intake Oral 1160 ml IV Total 100 ml Blood Product 329 ml Blood Product IV Normal Saline Flush 658 ml # Bowel Movements 1 Labs Labs Laboratory Tests Test 11/06/16 05:00 11/06/16 05:05 Stool Occult Blood Positive (NEG) White Blood Count 7.6x10^3/uL (4.0-11.0) Red Blood Count 2.22x10^6/uL (3.50-5.40) Hemoglobin 6.7g/dL (12.0-15.5) Hematocrit 19.9% (36.0-47.0) Mean Corpuscular Volume 88fL (79-100) Mean Corpuscular Hemoglobin 30pg (25-35) Mean Corpuscular Hemoglobin Concent 34g/dL (31-37) Red Cell Distribution Width 15.9% (11.5-14.5) Platelet Count 144x10^3/uL (140-400) Neutrophils (%) (Auto) 60% (31-73) Lymphocytes (%) (Auto) 24% (24-48) Monocytes (%) (Auto) 14% (0-9) Eosinophils (%) (Auto) 2% (0-3) Basophils (%) (Auto) 0% (0-3) Neutrophils # (Auto) 4.5x10^3uL (1.8-7.7) Lymphocytes # (Auto) 1.8x10^3/uL (1.0-4.8) Monocytes # (Auto) 1.0x10^3/uL (0.0-1.1) Eosinophils # (Auto) 0.2x10^3/uL (0.0-0.7) Basophils # (Auto) 0.0x10^3/uL (0.0-0.2) Sodium Level 138mmol/L (136-145) Potassium Level 5.2mmol/L (3.5-5.1) Chloride Level 101mmol/L (98-107) Carbon Dioxide Level 27mmol/L (21-32) Anion Gap 10 (6-14) Blood Urea Nitrogen 100mg/dL (7-20) Creatinine 5.9mg/dL (0.6-1.0) Estimated GFR (Cockcroft-Gault) 9.0 Glucose Level 134mg/dL (70-99) Calcium Level 9.1mg/dL (8.5-10.1) Phosphorus Level 3.3mg/dL (2.6-4.7) Albumin 2.5g/dL (3.4-5.0) Micro Micro Microbiology 11/02/16 Blood Culture - Preliminary, Resulted NO GROWTH AFTER 4 DAYS 10/30/16 Urine Culture - Final, Complete 10/30/16 Urine Culture Result 1 (CHRISTOPH) - Final, Complete 10/30/16 Urine Culture Result 2 (CHRISTOPH) - Final, Complete Review of Systems Constitutional: yes: no symptom reported Physical Exam General Appearance: no apparent distress Skin: warm Respiratory: bilateral CTA Genitourinary: bladder flat Extremities: pulses present Neurology: alert Musculoskeletal: Stiffness Assessment Assessment IMP ESRD ANEMIA ABD PAIN NON COMPLIANCE PLAN HD TOMORROW GI EVAL AND TX CONT ARANESP WILL FOLLOW YASMIN LEONARDO MD Nov 06, 2016 11:59
--- NOTE | 2016-11-06 13:59 | PDOC ---
Subjective: Subjective: Hip and back pain. Believes starting having dark stools over the weekend. Eating well. Objective: Objective: Per RN - stools are black w/ clots, to transfuse another unit pRBCs. Vital Signs: Vital Signs Date Time Temp Pulse Resp B/P Pulse Ox O2 Delivery O2 Flow Rate FiO2 11/06/16 13:50 97.9 71 16 140/64 97.9 11/06/16 13:07 98 Room Air Labs: Laboratory Tests Test 11/06/16 05:00 11/06/16 05:05 Stool Occult Blood Positive White Blood Count 7.6x10^3/uL Red Blood Count 2.22x10^6/uL Hemoglobin 6.7g/dL Hematocrit 19.9% Mean Corpuscular Volume 88fL Mean Corpuscular Hemoglobin 30pg Mean Corpuscular Hemoglobin Concent 34g/dL Red Cell Distribution Width 15.9% Platelet Count 144x10^3/uL Neutrophils (%) (Auto) 60% Lymphocytes (%) (Auto) 24% Monocytes (%) (Auto) 14% Eosinophils (%) (Auto) 2% Basophils (%) (Auto) 0% Neutrophils # (Auto) 4.5x10^3uL Lymphocytes # (Auto) 1.8x10^3/uL Monocytes # (Auto) 1.0x10^3/uL Eosinophils # (Auto) 0.2x10^3/uL Basophils # (Auto) 0.0x10^3/uL Sodium Level 138mmol/L Potassium Level 5.2mmol/L Chloride Level 101mmol/L Carbon Dioxide Level 27mmol/L Anion Gap 10 Blood Urea Nitrogen 100mg/dL Creatinine 5.9mg/dL Estimated GFR (Cockcroft-Gault) 9.0 Glucose Level 134mg/dL Calcium Level 9.1mg/dL Phosphorus Level 3.3mg/dL Albumin 2.5g/dL PE: GEN: NAD LUNGS: CTAB HEART: RRR ABD: NABS, S/ND/NT NEURO/PSYCH: A & O 3 A/P: HAYES, hemoccult positive/dark stool -Hgb in 6s, still requiring transfusions -colonoscopy 2007 w/ internal hemorrhoids -ESRD on HD (BUN/Cr elevated) GERD, h/o PUD, h/o duodenal angioma -s/p cautery/EGD <2 weeks ago @ [facility] -on PO PPI, IV iron Hep C -- Will review w/ Dr. Lora. ARNAUD KITCHEN Nov 06, 2016 13:59
[2016-11-06] MEDS ORDERED: ALPRAZOLAM 0.5 MG TABLET. ONE (20:33)
[2016-11-06] MEDS: ATORVASTATIN CALCIUM 20 MG TABLET PO SCH (21:19)
[2016-11-06] MEDS: OLANZAPINE 5 MG TABLET. PO SCH (21:19)
[2016-11-07] VITALS (7 sets, daily range): BP systolic 100–152; BP diastolic 55–79
[2016-11-07] MEDS: MORPHINE SULFATE 2 MG/ML DISP.SYRIN. IV PRN ×5 (00:26→20:31)
[2016-11-07] MEDS: ONDANSETRON PF 4 MG/2 ML VIAL. IV PRN (05:38)
[2016-11-07 06:46] LABS: BASO # 0.1 x10^3/uL (0.0-0.2); BASO % 1 % (0-3); EOS % 1 % (0-3); LYMPH # 1.6 x10^3/uL (1.0-4.8); LYMPH % 16 % (24-48); MEAN CORPUSCULAR HEMOGLOBIN 29 pg (25-35); MEAN CORPUSCULAR HGB CONC 33 g/dL (31-37); MEAN CORPUSCULAR VOLUME 88 fL (79-100); MONO % 13 % (0-9); NEUT % 69 % (31-73); PLATELET COUNT 136 x10^3/uL (140-400); RED BLOOD COUNT 2.14 x10^6/uL (3.50-5.40); RED CELL DISTRIBUTION WIDTH 16.9 % (11.5-14.5); WHITE BLOOD COUNT 9.9 x10^3/uL (4.0-11.0)
[2016-11-07 06:54] LABS: HEMATOCRIT 18.9 % (36.0-47.0); HEMOGLOBIN 6.3 g/dL (12.0-15.5)
[2016-11-07] MEDS: LEVOTHYROXINE 125 MCG TABLET PO SCH (07:00)
[2016-11-07 07:09] LABS: ALBUMIN 2.4 g/dL (3.4-5.0); CALCIUM 9.2 mg/dL (8.5-10.1); CREATININE 7.5 mg/dL (0.6-1.0); GFR 6.8; PHOSPHORUS 3.7 mg/dL (2.6-4.7)
[2016-11-07] MEDS: PANTOPRAZOLE 40 MG TABLET. PO SCH (07:30)
[2016-11-07] MEDS: CARVEDILOL 12.5 MG TABLET PO SCH ×2 (08:00→17:33)
[2016-11-07] MEDS: SEVELAMER CARBONATE 800 MG TABLET. PO SCH ×3 (08:00→15:54)
[2016-11-07] MEDS: CALCIUM ACETATE 667 MG CAPSULE PO SCH ×3 (08:00→15:54)
--- NOTE | 2016-11-07 08:05 | PDOC ---
PROGRESS NOTES Chief Complaint Chief Complaint anemia, recurrent 1. Abdominal pain, acute on chronic 2. ESRD on HD 3. Type 2 diabetes 4. High cholesterol 5. Hypertension 6. Hypothyroidism 7. Hepatitis C 8. h/o multisubstance Abuse 9. Chronic back and hip pain 10. Acute on chronic anemia, with ESRD, recent GIB 11. NON compliance 12. H/O Schizophrenia, suicidal idea 13. Homelessness 14. constipation Plan Drop in hemoglobin despite blood transfusion , Possible EGD today s/p 6 units of PRBC HD per nephrology Hematology consulted. History of Present Illness History of Present Illness no bloody diarrhea no fever Vitals Vitals Vital Signs Date Time Temp Pulse Resp B/P Pulse Ox O2 Delivery O2 Flow Rate FiO2 11/07/16 07:15 98.2 75 18 126/65 97 Room Air 98.2 Physical Exam General: Alert, Oriented X3, Cooperative, No acute distress Heart: Regular rate, Normal S1, Normal S2, No murmurs, Gallops Lungs: Clear Abdomen: Normal bowel sounds, Soft, No tenderness, No hepatosplenomegaly, No masses Extremities: No clubbing, No cyanosis, No edema, Normal pulses, No tenderness/ swelling Skin: No rashes, No significant lesion Labs LABS Laboratory Tests Test 11/07/16 06:30 White Blood Count 9.9x10^3/uL (4.0-11.0) Red Blood Count 2.14x10^6/uL (3.50-5.40) Hemoglobin 6.3g/dL (12.0-15.5) Hematocrit 18.9% (36.0-47.0) Mean Corpuscular Volume 88fL (79-100) Mean Corpuscular Hemoglobin 29pg (25-35) Mean Corpuscular Hemoglobin Concent 33g/dL (31-37) Red Cell Distribution Width 16.9% (11.5-14.5) Platelet Count 136x10^3/uL (140-400) Neutrophils (%) (Auto) 69% (31-73) Lymphocytes (%) (Auto) 16% (24-48) Monocytes (%) (Auto) 13% (0-9) Eosinophils (%) (Auto) 1% (0-3) Basophils (%) (Auto) 1% (0-3) Neutrophils # (Auto) 6.8x10^3uL (1.8-7.7) Lymphocytes # (Auto) 1.6x10^3/uL (1.0-4.8) Monocytes # (Auto) 1.3x10^3/uL (0.0-1.1) Eosinophils # (Auto) 0.1x10^3/uL (0.0-0.7) Basophils # (Auto) 0.1x10^3/uL (0.0-0.2) Sodium Level 135mmol/L (136-145) Potassium Level 6.0mmol/L (3.5-5.1) Chloride Level 98mmol/L (98-107) Carbon Dioxide Level 23mmol/L (21-32) Anion Gap 14 (6-14) Blood Urea Nitrogen 135mg/dL (7-20) Creatinine 7.5mg/dL (0.6-1.0) Estimated GFR (Cockcroft-Gault) 6.8 Glucose Level 158mg/dL (70-99) Calcium Level 9.2mg/dL (8.5-10.1) Phosphorus Level 3.7mg/dL (2.6-4.7) Albumin 2.4g/dL (3.4-5.0) Assessment and Plan Assessmemt and Plan Problems Medical Problems: (1) Abdominal pain Status: Acute (2) ESRD (end stage renal disease) Status: Acute Problems: Comment Review of Relevant I have reviewed the following items hemal (where applicable) has been applied. Labs Laboratory Tests Test 11/06/16 05:00 11/06/16 05:05 11/07/16 06:30 Stool Occult Blood Positive (NEG) White Blood Count 7.6x10^3/uL (4.0-11.0) 9.9x10^3/uL (4.0-11.0) Red Blood Count 2.22x10^6/uL (3.50-5.40) 2.14x10^6/uL (3.50-5.40) Hemoglobin 6.7g/dL (12.0-15.5) 6.3g/dL (12.0-15.5) Hematocrit 19.9% (36.0-47.0) 18.9% (36.0-47.0) Mean Corpuscular Volume 88fL (79-100) 88fL (79-100) Mean Corpuscular Hemoglobin 30pg (25-35) 29pg (25-35) Mean Corpuscular Hemoglobin Concent 34g/dL (31-37) 33g/dL (31-37) Red Cell Distribution Width 15.9% (11.5-14.5) 16.9% (11.5-14.5) Platelet Count 144x10^3/uL (140-400) 136x10^3/uL (140-400) Neutrophils (%) (Auto) 60% (31-73) 69% (31-73) Lymphocytes (%) (Auto) 24% (24-48) 16% (24-48) Monocytes (%) (Auto) 14% (0-9) 13% (0-9) Eosinophils (%) (Auto) 2% (0-3) 1% (0-3) Basophils (%) (Auto) 0% (0-3) 1% (0-3) Neutrophils # (Auto) 4.5x10^3uL (1.8-7.7) 6.8x10^3uL (1.8-7.7) Lymphocytes # (Auto) 1.8x10^3/uL (1.0-4.8) 1.6x10^3/uL (1.0-4.8) Monocytes # (Auto) 1.0x10^3/uL (0.0-1.1) 1.3x10^3/uL (0.0-1.1) Eosinophils # (Auto) 0.2x10^3/uL (0.0-0.7) 0.1x10^3/uL (0.0-0.7) Basophils # (Auto) 0.0x10^3/uL (0.0-0.2) 0.1x10^3/uL (0.0-0.2) Sodium Level 138mmol/L (136-145) 135mmol/L (136-145) Potassium Level 5.2mmol/L (3.5-5.1) 6.0mmol/L (3.5-5.1) Chloride Level 101mmol/L (98-107) 98mmol/L (98-107) Carbon Dioxide Level 27mmol/L (21-32) 23mmol/L (21-32) Anion Gap 10 (6-14) 14 (6-14) Blood Urea Nitrogen 100mg/dL (7-20) 135mg/dL (7-20) Creatinine 5.9mg/dL (0.6-1.0) 7.5mg/dL (0.6-1.0) Estimated GFR (Cockcroft-Gault) 9.0 6.8 Glucose Level 134mg/dL (70-99) 158mg/dL (70-99) Calcium Level 9.1mg/dL (8.5-10.1) 9.2mg/dL (8.5-10.1) Phosphorus Level 3.3mg/dL (2.6-4.7) 3.7mg/dL (2.6-4.7) Albumin 2.5g/dL (3.4-5.0) 2.4g/dL (3.4-5.0) Laboratory Tests Test 11/07/16 06:30 White Blood Count 9.9x10^3/uL (4.0-11.0) Red Blood Count 2.14x10^6/uL (3.50-5.40) Hemoglobin 6.3g/dL (12.0-15.5) Hematocrit 18.9% (36.0-47.0) Mean Corpuscular Volume 88fL (79-100) Mean Corpuscular Hemoglobin 29pg (25-35) Mean Corpuscular Hemoglobin Concent 33g/dL (31-37) Red Cell Distribution Width 16.9% (11.5-14.5) Platelet Count 136x10^3/uL (140-400) Neutrophils (%) (Auto) 69% (31-73) Lymphocytes (%) (Auto) 16% (24-48) Monocytes (%) (Auto) 13% (0-9) Eosinophils (%) (Auto) 1% (0-3) Basophils (%) (Auto) 1% (0-3) Neutrophils # (Auto) 6.8x10^3uL (1.8-7.7) Lymphocytes # (Auto) 1.6x10^3/uL (1.0-4.8) Monocytes # (Auto) 1.3x10^3/uL (0.0-1.1) Eosinophils # (Auto) 0.1x10^3/uL (0.0-0.7) Basophils # (Auto) 0.1x10^3/uL (0.0-0.2) Sodium Level 135mmol/L (136-145) Potassium Level 6.0mmol/L (3.5-5.1) Chloride Level 98mmol/L (98-107) Carbon Dioxide Level 23mmol/L (21-32) Anion Gap 14 (6-14) Blood Urea Nitrogen 135mg/dL (7-20) Creatinine 7.5mg/dL (0.6-1.0) Estimated GFR (Cockcroft-Gault) 6.8 Glucose Level 158mg/dL (70-99) Calcium Level 9.2mg/dL (8.5-10.1) Phosphorus Level 3.7mg/dL (2.6-4.7) Albumin 2.4g/dL (3.4-5.0) Microbiology 11/02/16 Blood Culture - Preliminary, Resulted NO GROWTH AFTER 4 DAYS 10/30/16 Urine Culture - Final, Complete 10/30/16 Urine Culture Result 1 (CHRISTOPH) - Final, Complete 10/30/16 Urine Culture Result 2 (CHRISTOPH) - Final, Complete Medications Current Medications Aspirin (Children'S Aspirin) 324 mg 1X ONCE PO Last administered on 10/30/16 17:05; Start 10/30/16 at 17:00; Stop 10/30/16 at 17:01; Status DC Alprazolam (Xanax) 0.5 mg PRN Q8HRS PRN PO ANXIETY / AGITATION Last administered on 11/06/16 21:19; Start 10/30/16 at 19:30 Amlodipine Besylate (Norvasc) 10 mg DAILY PO Last administered on 11/06/16 10: 02; Start 10/31/16 at 09:00 Calcium Acetate (Phoslo) 667 mg TIDWMEALS PO Last administered on 10/31/16 08: 43; Start 10/31/16 at 08:00; Stop 10/31/16 at 10:52; Status DC Carvedilol (Coreg) 12.5 mg BIDWMEALS PO Last administered on 11/06/16 16:33; Start 10/31/16 at 08:00 Divalproex Sodium (Depakote) 250 mg TID PO Last administered on 11/06/16 21:19 ; Start 10/30/16 at 21:00 Gabapentin (Neurontin) 300 mg DAILY PO Last administered on 11/06/16 09:42; Start 10/31/16 at 09:00 Hydralazine HCl (Apresoline) 50 mg QID PO Last administered on 11/06/16 21:20 ; Start 10/30/16 at 21:00 Lamotrigine (LaMICtal) 25 mg DAILY PO Last administered on 11/06/16 09:43; Start 10/31/16 at 09:00 Levothyroxine Sodium (Synthroid) 125 mcg DAILY07 PO Last administered on 05:54; Start 10/31/16 at 07:00 Nicotine (Nicoderm Cq 21mg) 1 patch DAILY TD Last administered on 11/06/16 09: 41; Start 10/31/16 at 09:00 Atorvastatin Calcium (Lipitor) 20 mg QHS PO Last administered on 11/06/16 21: 19; Start 10/30/16 at 22:00 Olanzapine (Zyprexa) 10 mg QHS PO Last administered on 11/06/16 21:19; Start 10/30/16 at 21:30 Non-Formulary Medication 1 tab PRN BID PRN PO Severe pain; Start 10/30/16 at 19 :30; Stop 10/30/16 at 19:34; Status DC Risperidone (Risperdal) 4 mg DAILY PO Last administered on 11/06/16 09:43; Start 10/31/16 at 09:00 Sertraline HCl (Zoloft) 200 mg DAILY PO Last administered on 11/06/16 09:42; Start 10/31/16 at 09:00 Sevelamer Carbonate (Renvela) 800 mg TIDWMEALS PO Last administered on 16:30; Start 10/31/16 at 08:00 Ondansetron HCl (Zofran) 4 mg PRN Q6HRS PRN IV NAUSEA/VOMITING Last administered on 11/07/16 05:38; Start 10/30/16 at 19:30 Acetaminophen/ Hydrocodone Bitart (Lortab 5/325) 1 tab PRN Q4HRS PRN PO MILD PAIN Last administered on 11/05/16 09:17; Start 10/30/16 at 19:30; Stop at 09:29; Status DC Acetaminophen (Tylenol) 650 mg PRN Q6HRS PRN PO MILD PAIN / TEMP; Start at 19:30; Status UNV Heparin Sodium (Porcine) 5,000 unit Q8HRS SQ Last administered on 11/02/16 14: 00; Start 10/30/16 at 22:00; Stop 11/04/16 at 08:43; Status DC Acetaminophen (Tylenol) 650 mg PRN Q6HRS PRN PO FEVER Last administered on 11/02 18:08; Start 10/30/16 at 19:45 Hydralazine HCl (Apresoline) 10 mg PRN Q5MIN PRN IVP ELEVATED BP, SEE COMMENTS ; Start 10/30/16 at 19:45 Pantoprazole Sodium (Protonix) 40 mg DAILYAC PO Last administered on 11/06/16 05:54; Start 10/31/16 at 07:30 Ferrous Sulfate 300 mg BIDWMEALS PO Last administered on 11/03/16 08:36; Start 10/31/16 at 10:00; Stop 11/03/16 at 10:32; Status DC Polyethylene Glycol 17 gm 17 gm DAILY PO Last administered on 11/05/16 08:31; Start 10/31/16 at 12:00 Magnesium Sulfate/ Dextrose 50 ml @ 25 mls/hr PRN DAILY PRN IV for Mag < 1.7 on am labs; Start 10/31/16 at 10:45 Iron Sucrose/ Sodium Chloride (Venofer/Iv Sodium Chloride 0.9% 100ml) 110 ml @ 55 mls/hr 3X/WEEK IV Last administered on 11/06/16 10:04; Start 11/01/16 at 09 :00; Stop 11/10/16 at 10:59 Polyethylene Glycol (miraLAX PACKET) 17 gm PRN DAILY PRN PO CONSTIPATION; Start 10/31/16 at 10:45 Calcium Acetate 2001 mg 2,001 mg TIDWMEALS PO Last administered on 11/06/16 16 :30; Start 10/31/16 at 12:00 Sodium Chloride 1,000 ml @ 1,000 mls/hr Q1H PRN IV hypotension; Start 10/31/16 at 16:46; Stop 10/31/16 at 22:45; Status DC Albumin Human (Albuminar) 200 ml @ 200 mls/hr 1X PRN PRN IV Hypotension; Start 10/31/16 at 17:00; Stop 10/31/16 at 22:59; Status DC Acetaminophen (Tylenol) 500 mg 1X PRN PRN PO MILD PAIN / TEMP; Start 10/31/16 at 17:00; Stop 11/01/16 at 16:59; Status DC Diphenhydramine HCl (Benadryl) 25 mg 1X PRN PRN IV ITCHING; Start 10/31/16 at 17:00; Stop 11/01/16 at 16:59; Status DC Diphenhydramine HCl 25 mg 25 mg 1X PRN PRN IV ITCHING; Start 10/31/16 at 17:00 ; Stop 11/01/16 at 16:59; Status DC Sodium Chloride (Iv Sodium Chloride 0.9% 1000ml Bag) 1,000 ml @ 400 mls/hr Q2H30M PRN IV PATENCY; Start 10/31/16 at 16:46; Stop 11/01/16 at 04:45; Status DC Info (PHARMACY MONITORING -- do not chart) 1 each PRN DAILY PRN MC SEE COMMENTS ; Start 10/31/16 at 17:00; Stop 11/04/16 at 13:14; Status DC Docusate Sodium (Colace) 100 mg DAILY PO Last administered on 11/05/16t 08:32; Start 11/01/16 at 09:00; Stop 11/06/16 at 14:07; Status DC Fentanyl Citrate 50 mcg 50 mcg 1X ONCE IV Last administered on 11/01/16t 11:14 ; Start 11/01/16 at 11:15; Stop 11/01/16 at 11:16; Status DC Sodium Chloride (Iv Sodium Chloride 0.9% 1000ml Bag) 1,000 ml @ 1,000 mls/hr Q1H PRN IV hypotension; Start 11/02/16 at 07:39; Stop 11/02/16 at 13:38; Status DC Acetaminophen (Tylenol) 500 mg 1X PRN PRN PO MILD PAIN / TEMP; Start 11/02/16 at 07:45; Stop 11/03/16 at 07:44; Status DC Diphenhydramine HCl (Benadryl) 25 mg 1X PRN PRN IV ITCHING Last administered on 11/02/16 15:55; Start 11/02/16 at 07:45; Stop 11/03/16 at 07:44; Status DC Diphenhydramine HCl (Benadryl) 25 mg 1X PRN PRN IV ITCHING Last administered on 11/02/16 08:41; Start 11/02/16 at 07:45; Stop 11/03/16 at 07:44; Status DC Labetalol HCl 10 mg 10 mg PRN Q1HR PRN IVP SBP > 180; Start 11/02/16 at 07:45; Stop 11/03/16 at 07:44; Status DC Sodium Chloride (Iv Sodium Chloride 0.9% 1000ml Bag) 1,000 ml @ 400 mls/hr Q2H30M PRN IV PATENCY; Start 11/02/16 at 07:39; Stop 11/02/16 at 19:38; Status DC Info (PHARMACY MONITORING -- do not chart) 1 each PRN DAILY PRN MC SEE COMMENTS ; Start 11/02/16 at 07:45; Stop 11/02/16 at 07:51; Status DC Calcium Carbonate/ Glycine (Tums) 500 mg PRN AFTMEALHC PRN PO INDIGESTION; Start 11/02/16 at 15:15 Lidocaine (Lidoderm) 1 patch DAILY TD Last administered on 11/06/16 09:39; Start 11/02/16 at 15:45 Vancomycin HCl 1 each 1 each PRN DAILY PRN MC SEE COMMENTS Last administered on 11/04/16 14:19; Start 11/02/16 at 18:30; Stop 11/06/16 at 11:31; Status DC Piperacillin Sod/ Tazobactam Sod 2.25 gm/Sodium Chloride 50 ml @ 100 mls/hr Q8HRS IV Last administered on 11/06/16 05:54; Start 11/02/16 at 18:30; Stop at 11:31; Status DC Vancomycin HCl/ Sodium Chloride (Iv Sodium Chloride 0.9% 500ml Bag) 500 ml @ 250 mls/hr 1X ONCE IV Last administered on 11/02/16 21:12; Start 11/02/16 at 18:30; Stop 11/02/16 at 20:29; Status DC Vancomycin HCl 1 each 1X ONCE MC Last administered on 11/04/16 06:00; Start 11/04/16 at 06:00; Stop 11/04/16 at 06:01; Status DC Diphenhydramine HCl (Benadryl) 25 mg PRN Q6HRS PRN PO ITCHING Last administered on 11/04/16 22:08; Start 11/03/16 at 02:00 Darbepoetin Sourav 60 mcg 60 mcg WEEKLYHS SQ Last administered on 11/03/16 21:42 ; Start 11/03/16 at 21:00 Sodium Chloride 1,000 ml @ 1,000 mls/hr Q1H PRN IV hypotension; Start 11/04/16 at 06:23; Stop 11/04/16 at 12:22; Status DC Albumin Human (Albuminar) 200 ml @ 200 mls/hr 1X PRN PRN IV Hypotension; Start 11/04/16 at 06:30; Stop 11/04/16 at 12:29; Status DC Acetaminophen (Tylenol) 500 mg 1X PRN PRN PO MILD PAIN / TEMP; Start 11/04/16 at 06:30; Stop 11/05/16 at 06:29; Status DC Diphenhydramine HCl (Benadryl) 25 mg 1X PRN PRN IV ITCHING Last administered on 11/04/16 06:57; Start 11/04/16 at 06:30; Stop 11/05/16 at 06:29; Status DC Diphenhydramine HCl (Benadryl) 25 mg 1X PRN PRN IV ITCHING; Start 11/04/16 at 06:30; Stop 11/05/16 at 06:29; Status DC Labetalol HCl (Normodyne) 10 mg PRN Q1HR PRN IVP SBP > 180; Start 11/04/16 at 06:30; Stop 11/05/16 at 06:29; Status DC Clonidine HCl (Catapres) 0.1 mg 1X PRN PRN PO SBP > 180; Start 11/04/16 at 06: 30; Stop 11/05/16 at 06:29; Status DC Info 1 each 1 each PRN DAILY PRN MC SEE COMMENTS; Start 11/04/16 at 06:30 Vancomycin HCl/ Sodium Chloride (Iv Sodium Chloride 0.9% 100ml) 100 ml @ 100 mls/hr QTUTHSA IV Last administered on 11/04/16 16:08; Start 11/04/16 at 16:00 ; Stop 11/06/16 at 11:31; Status DC Acetaminophen/ Hydrocodone Bitart (Lortab 7.5/325) 1 tab PRN Q6HRS PRN PO PAIN Last administered on 11/06/16 16:29; Start 11/05/16 at 09:30 Morphine Sulfate 1 mg PRN Q4HRS PRN IV PAIN Last administered on 11/07/16 05: 51; Start 11/05/16 at 09:30 Docusate Sodium (Colace) 100 mg DAILY PO ; Start 11/07/16 at 09:00 Alprazolam (Xanax) 0.5 mg STK-MED ONCE .ROUTE ; Start 11/06/16 at 20:33; Stop at 20:34; Status DC Active Scripts Active Percocet 5-325 Mg Tablet (Oxycodone/Acetaminophen) 1 Each Tablet 1 Tab PO QID PRN Alprazolam 0.5 Mg Tablet 0.5 Mg PO Q8HRS PRN Oxycodone Hcl 10 Mg Tablet 1 Tab PO PRN BID PRN Olanzapine Odt (Olanzapine) 10 Mg Tab.rapdis 10 Mg PO QHS Lamotrigine 25 Mg Tablet 25 Mg PO DAILY 30 Days Zoloft (Sertraline Hcl) 100 Mg Tablet 200 Mg PO DAILY Risperidone 4 Mg Tablet 4 Mg PO DAILY Zofran Odt (Ondansetron) 4 Mg Tab.rapdis 1 Tab SL Q8HRS Reported NICODERM CQ 21mg (Nicotine) 1 Each Patch.td24 1 Patch TP DAILY Depakote (Divalproex Sodium) 250 Mg Tablet.dr 250 Mg PO TID Amlodipine Besylate 10 Mg Tablet 10 Mg PO DAILY Hydralazine Hcl 50 Mg Tablet 50 Mg PO QID Renagel (Sevelamer Hcl) 800 Mg Tablet 800 Mg PO TIDWMEALS Simvastatin 40 Mg Tablet 40 Mg PO HS Levothyroxine Sodium 125 Mcg Tablet 125 Mcg PO DAILYAC Gabapentin 300 Mg Capsule 300 Mg PO DAILY Phoslo (Calcium Acetate) 667 Mg Capsule 667 Mg PO TIDWMEALS Carvedilol 12.5 Mg Tablet 12.5 Mg PO BIDWMEALS Vitals/I & O Vital Sign - Last 24 Hours 11/06/16 11/06/16 11/06/16 11/06/16 08:58 10:02 10:03 10:03 Pulse 73 73 73 Resp 18 B/P 166/73 166/73 166/73 11/06/16 11/06/16 11/06/16 11/06/16 10:26 12:37 13:18 13:50 Temp 97.9 97.9 97.9 97.9 Pulse 69 75 71 Resp 14 16 B/P 150/76 144/63 140/64 Pulse Ox 98 98 O2 Delivery Room Air Room Air 11/06/16 11/06/16 11/06/16 11/06/16 14:05 15:05 15:06 16:05 Temp 97.7 97.4 98.4 97.2 97.7 97.4 98.4 97.2 Pulse 70 67 69 68 Resp 16 17 16 B/P 137/61 117/59 121/63 133/72 Pulse Ox 96 O2 Delivery Room Air 11/06/16 11/06/16 11/06/16 11/06/16 16:24 16:29 16:30 16:33 Temp 97.2 97.2 Pulse 67 67 67 Resp 16 B/P 128/66 128/66 128/66 Pulse Ox 96 O2 Delivery Room Air 11/06/16 11/06/16 11/06/16 11/06/16 17:29 18:06 18:36 19:40 Temp 98.2 98.2 Pulse 68 Resp 20 B/P 125/66 Pulse Ox 96 96 96 96 O2 Delivery Room Air Room Air Room Air 11/06/16 11/06/16 11/06/16 11/07/16 20:00 21:20 22:40 00:26 Temp 98.0 98.0 Pulse 67 67 Resp 20 B/P 150/64 150/64 Pulse Ox 95 95 O2 Delivery Room Air Room Air Room Air 11/07/16 11/07/16 11/07/16 05:51 06:21 07:15 Temp 98.2 98.2 Pulse 75 Resp 18 B/P 126/65 Pulse Ox 97 O2 Delivery Room Air Room Air Room Air Intake and Output 311/06/16 11/07/16 15:00 23:00 07:00 Intake Total 150 ml Balance 150 ml BRANDI JARA MD Nov 07, 2016 08:05
[2016-11-07] MEDS ORDERED: IV NORMAL SALINE 1000ML BAG 1,000 ML IV PRN ×2 (08:23)
[2016-11-07] MEDS ORDERED: DIALYSIS PATIENT. MC PRN (08:30)
[2016-11-07] MEDS: HYDRALAZINE 50 MG TABLET PO SCH ×4 (08:49→20:30)
[2016-11-07] MEDS: DOCUSATE SODIUM 100 MG CAPSULE. PO SCH (08:50)
[2016-11-07] MEDS: DIVALPROEX DELAYED RELEASE 250 MG TABLET.DR. PO SCH ×3 (08:51→20:30)
[2016-11-07] MEDS: risperiDONE 1 MG TABLET. PO SCH (08:52)
[2016-11-07] MEDS: lamoTRIgine 25 MG TABLET. PO SCH (08:52)
[2016-11-07] MEDS: AMLODIPINE BESYLATE 10 MG TABLET PO SCH ×2 (08:52→11:39)
[2016-11-07] MEDS: POLYETHYLENE GLYCOL 3350 17 GM PACKET. PO SCH (08:52)
[2016-11-07] MEDS: GABAPENTIN 300 MG CAPSULE. PO SCH (08:52)
[2016-11-07] MEDS: NICOTINE 21MG PATCH. TD SCH (09:00)
[2016-11-07] MEDS ORDERED: IRON SUCROSE COMPLEX 500 MG in IV NORMAL SALINE 250ML 250 ML IV ONE (09:00)
[2016-11-07] MEDS: SERTRALINE 50 MG TABLET. PO SCH (09:00)
[2016-11-07] MEDS: LIDOCAINE (700MG/PATCH) PATCH. TD SCH (09:00)
--- NOTE | 2016-11-07 09:13 | PDOC ---
Provider Note Provider Note Heme consult dictated- [id number] Acute on chronic anemia s/p 5 units blood Recent GI bleed Iron deficiency CKD on HD, Aranesp Polysubstance abuse Untreated Hep C Anemia likely multifactorial with certainly large component of iron deficiency, blood loss Added larger dose Venofer Will follow EGD Hgb electrophoresis, haptoglobin, coomb's also added. CLIFFORD LOUISE DO Nov 07, 2016 09:13
--- NOTE | 2016-11-07 09:35 | PDOC ---
Infectious Disease Note Subjective Subjective still GI bleed ROS ROS GEN: Denies fevers, chills, sweats HEENT: Denies blurred vision, sore throat CV: Denies chest pain RESP: Denies shortness of air, cough GI: Denies n/v/d NEURO: Denies confusion, dizziness MSK: Denies weakness, joint pain/swelling Vital Sign Vital Signs Vital Signs Date Time Temp Pulse Resp B/P Pulse Ox O2 Delivery O2 Flow Rate FiO2 11/07/16 09:10 98.7 73 16 148/79 98.7 11/07/16 07:15 97 Room Air Physical Exam PHYSICAL EXAM GENERAL: NAD, Alert HEENT: PERRL, OC/OP NECK: Supple, no JVD, no LN LUNGS: Clear HEART: S1S2, no gallop, no murmur ABD: Soft, NT, no organomegaly, no rebound EXT: No edema, no cyanosis SNOWBOARD DESIGNER: Alert, oriented x 3, no focal neurologic deficit SKIN: No rash IV: ok Labs Lab Laboratory Tests Test 11/07/16 06:30 White Blood Count 9.9x10^3/uL (4.0-11.0) Red Blood Count 2.14x10^6/uL (3.50-5.40) Hemoglobin 6.3g/dL (12.0-15.5) Hematocrit 18.9% (36.0-47.0) Mean Corpuscular Volume 88fL (79-100) Mean Corpuscular Hemoglobin 29pg (25-35) Mean Corpuscular Hemoglobin Concent 33g/dL (31-37) Red Cell Distribution Width 16.9% (11.5-14.5) Platelet Count 136x10^3/uL (140-400) Neutrophils (%) (Auto) 69% (31-73) Lymphocytes (%) (Auto) 16% (24-48) Monocytes (%) (Auto) 13% (0-9) Eosinophils (%) (Auto) 1% (0-3) Basophils (%) (Auto) 1% (0-3) Neutrophils # (Auto) 6.8x10^3uL (1.8-7.7) Lymphocytes # (Auto) 1.6x10^3/uL (1.0-4.8) Monocytes # (Auto) 1.3x10^3/uL (0.0-1.1) Eosinophils # (Auto) 0.1x10^3/uL (0.0-0.7) Basophils # (Auto) 0.1x10^3/uL (0.0-0.2) Sodium Level 135mmol/L (136-145) Potassium Level 6.0mmol/L (3.5-5.1) Chloride Level 98mmol/L (98-107) Carbon Dioxide Level 23mmol/L (21-32) Anion Gap 14 (6-14) Blood Urea Nitrogen 135mg/dL (7-20) Creatinine 7.5mg/dL (0.6-1.0) Estimated GFR (Cockcroft-Gault) 6.8 Glucose Level 158mg/dL (70-99) Calcium Level 9.2mg/dL (8.5-10.1) Phosphorus Level 3.7mg/dL (2.6-4.7) Albumin 2.4g/dL (3.4-5.0) Objective Assessment Fever Left flank/groin pain ESRD Homeless Plan Plan of Care EGD today supportive care JULIA TYLER MD Nov 07, 2016 09:35
--- NOTE | 2016-11-07 11:23 | PDOC ---
Renal-Progress Notes Subjective Notes Notes C/O OF DRY LIPS History of Present Illness Hx of present illness STABLE Vitals Vitals Vital Signs Date Time Temp Pulse Resp B/P Pulse Ox O2 Delivery O2 Flow Rate FiO2 11/07/16 10:06 97.6 72 16 150/74 97.6 11/07/16 07:15 97 Room Air Weight Weight [ ] I.O. Intake and Output Intake and Output 11/07/16 07:00 Intake Total 150 ml Balance 150 ml Intake Oral 100 ml Blood Product IV Normal Saline Flush 50 ml Labs Labs Laboratory Tests Test 11/07/16 06:30 White Blood Count 9.9x10^3/uL (4.0-11.0) Red Blood Count 2.14x10^6/uL (3.50-5.40) Hemoglobin 6.3g/dL (12.0-15.5) Hematocrit 18.9% (36.0-47.0) Mean Corpuscular Volume 88fL (79-100) Mean Corpuscular Hemoglobin 29pg (25-35) Mean Corpuscular Hemoglobin Concent 33g/dL (31-37) Red Cell Distribution Width 16.9% (11.5-14.5) Platelet Count 136x10^3/uL (140-400) Neutrophils (%) (Auto) 69% (31-73) Lymphocytes (%) (Auto) 16% (24-48) Monocytes (%) (Auto) 13% (0-9) Eosinophils (%) (Auto) 1% (0-3) Basophils (%) (Auto) 1% (0-3) Neutrophils # (Auto) 6.8x10^3uL (1.8-7.7) Lymphocytes # (Auto) 1.6x10^3/uL (1.0-4.8) Monocytes # (Auto) 1.3x10^3/uL (0.0-1.1) Eosinophils # (Auto) 0.1x10^3/uL (0.0-0.7) Basophils # (Auto) 0.1x10^3/uL (0.0-0.2) Sodium Level 135mmol/L (136-145) Potassium Level 6.0mmol/L (3.5-5.1) Chloride Level 98mmol/L (98-107) Carbon Dioxide Level 23mmol/L (21-32) Anion Gap 14 (6-14) Blood Urea Nitrogen 135mg/dL (7-20) Creatinine 7.5mg/dL (0.6-1.0) Estimated GFR (Cockcroft-Gault) 6.8 Glucose Level 158mg/dL (70-99) Calcium Level 9.2mg/dL (8.5-10.1) Phosphorus Level 3.7mg/dL (2.6-4.7) Albumin 2.4g/dL (3.4-5.0) Thyroid Stimulating Hormone (TSH) 2.666uIU/mL (0.358-3.74) Micro Micro Microbiology 11/02/16 Blood Culture - Final, Complete NO GROWTH AFTER 5 DAYS 10/30/16 Urine Culture - Final, Complete 10/30/16 Urine Culture Result 1 (CHRISTOPH) - Final, Complete 10/30/16 Urine Culture Result 2 (CHRISTOPH) - Final, Complete Review of Systems Constitutional: yes: no symptom reported Physical Exam General Appearance: no apparent distress Skin: warm Respiratory: bilateral CTA Genitourinary: bladder flat Extremities: pulses present Neurology: alert Musculoskeletal: Stiffness Assessment Assessment IMP ESRD ANEMIA ABD PAIN NON COMPLIANCE PLAN HD TODAY UF TO DW PRBC TODAY WITH HD CONT ARANESP WILL FOLLOW YASMIN LEONARDO MD Nov 07, 2016 11:23
--- NOTE | 2016-11-07 11:45 | CONS ---
DATE OF CONSULTATION: 11/07/2016 REFERRING PROVIDER: Dr. Barrera. REASON FOR CONSULTATION: Ongoing anemia. HISTORY OF PRESENT ILLNESS: The patient is a 56-year-old female who has been admitted to the hospital on the with a history of left lower quadrant bleeding and recent GI bleeding at an outside hospital. Per review of GI notes, she had an EGD completed at [facility] last week, which did show some evidence of bleeding, gastritis and her hemoglobin was 6.7. She continued to have rectal bleeding and her fecal occult blood test has been positive. Here, she has been transfused 5 units of blood, but continues to have a hemoglobin around 6.5. Despite this, her iron levels are very low. She has multiple comorbidities, which could also be contributing as below. Repeat EGD is planned for later today. Her medical care is complicated by a strong history of noncompliance and homelessness. PAST MEDICAL HISTORY: Hypertension, end-stage renal disease on dialysis with repeatedly missed appointment, diabetes, hyperparathyroidism, hypothyroidism, hyperlipidemia, untreated hepatitis C, polysubstance abuse, schizophrenia, suicidal ideation and uterine cancer. PAST SURGICAL HISTORY: Dialysis fistula, hysterectomy. FAMILY HISTORY: Unknown to the patient. SOCIAL HISTORY: Smokes 1 pack per day. Homeless per chart review, history of polysubstance abuse per chart review. ALLERGIES: TRAMADOL. CURRENT MEDICATIONS: Morphine, Lortab, Aranesp, Benadryl, Tums, Venofer 200 mg 3 times a week with dialysis, PhosLo, MiraLax, Zoloft, Risperdal, Nicoderm, Lamictal, Neurontin, Norvasc, sevelamer, Coreg, pantoprazole, Synthroid, atorvastatin, Zyprexa, hydralazine, Tylenol, Zofran, Xanax. REVIEW OF SYSTEMS: Ten point review of systems completed, but somewhat limited. She does state that she has some shortness of breath and a new cough. She also reported dark stools. Otherwise, unremarkable. PHYSICAL EXAMINATION: VITAL SIGNS: Temperature 98.2, pulse 75, respiratory rate 18, blood pressure 126/65, 97% O2 on room air. GENERAL: She is alert and oriented, but appears very fatigued. She gives very minimal answers to questions. HEENT: No scleral icterus. Mucous membranes are dry. CARDIOVASCULAR: Heart is regular in rhythm and rate. LUNGS: Clear to auscultation bilaterally. ABDOMEN: Soft, nontender. EXTREMITIES: 1+ edema bilateral lower extremities. NEUROLOGIC: No focal deficits. IMAGING and LABORATORY DATA: Hemoglobin remains around 6.5. It is 6.3 today. Review of the medical record here shows that she has had some hemoglobin as high 10 in the past 2 years. Iron studies are low, platelets 136, B12 and folic acid have been normal. Fecal occult blood test is positive. ASSESSMENT AND PLAN: The patient is a 56-year-old female with the following medical problems: 1. Acute on chronic anemia with obvious iron deficiency anemia and a reported history of recent gastrointestinal bleed. Gastroenterology is following and planning to do a repeat EGD this afternoon. She has been receiving Venofer 200 mg 3 times a week with dialysis. With her recent bleeding and low iron levels, I suspect her iron deficiency is really quite profound. I am going to give her another boost of 500 mg of Venofer today. I have also added on haptoglobin and Bo test to see if there is any hemolytic component. Additionally, I have ordered a hemoglobin electrophoresis to see if there may be some inherited causes that could worsen her chronic anemia. 2. Recent gastrointestinal bleed with ongoing melena. EGD is planned today. 3. End-stage renal disease, on dialysis with repeated noncompliance. She is getting dialysis currently. Aranesp has been ordered by the auto club safety program coordinator. 4. Untreated hepatitis C could also worsen her blood counts. 5. Polysubstance abuse. Also, could worsen her blood counts. Thank you for this consultation. I will continue to follow along. CLIFFORD LOUISE DO DR: Ty JOB#: [id number] / [id number]
[2016-11-07] MEDS ORDERED: PROPOFOL 20 ML IV ONE (13:22)
--- NOTE | 2016-11-07 14:11 | PDOC4 ---
PROCEDURE Procedure EGD/BICAP Indication: HAYES, frequently needing transfusions. H/o UGI angiodysplasiae. Meds: per anesthesia. Findings: E--irregular Z-line c/w some degree of reflux. G--some amount of retained food. A few scattered angiodysplasiae in antrum and along greater curve, BICAP'd. D--a few small angiodysplasiae in second portion, also BICAP'd. Tolerated well. IMP: Mild reflux. Angidysplasiae in stomach and duodenum; some BICAP'd. Presence of these in UGI tract, though, strongly correlates with other lesions in the more distal small bowel. Today's treatment will probably not solve her ongoing issues. REC: Resume diet and med. Chronic iron supplementation/"marrow stimulator". Transfuse prn. Thanks. ROLA DREW MD Nov 07, 2016 14:11
[2016-11-07 17:20] LABS: HAPTOGLOBIN 66 mg/dL (34-200)
[2016-11-07] MEDS: CALCIUM CARBONATE 500 MG TAB.CHEW PO PRN (17:31)
[2016-11-07] MEDS: HYDROCODONE/APAP 7.5/325MG TABLET. PO PRN (17:32)
[2016-11-07] MEDS: ALPRAZOLAM 0.5 MG TABLET. PO PRN (17:41)
[2016-11-07] MEDS: OLANZAPINE 5 MG TABLET. PO SCH (20:30)
[2016-11-07] MEDS: ATORVASTATIN CALCIUM 20 MG TABLET PO SCH (20:30)
[2016-11-08] VITALS (11 sets, daily range): BP systolic 120–163; BP diastolic 59–72
[2016-11-08] MEDS: MORPHINE SULFATE 2 MG/ML DISP.SYRIN. IV PRN ×5 (02:31→21:34)
[2016-11-08] MEDS: HYDROCODONE/APAP 7.5/325MG TABLET. PO PRN ×3 (05:17→21:33)
[2016-11-08] MEDS: LEVOTHYROXINE 125 MCG TABLET PO SCH (05:34)
[2016-11-08] MEDS ORDERED: IRON SUCROSE COMPLEX 500 MG in IV NORMAL SALINE 250ML 250 ML IV ONE (06:30)
[2016-11-08] MEDS: NICOTINE 21MG PATCH. TD SCH (07:51)
[2016-11-08] MEDS: CALCIUM ACETATE 667 MG CAPSULE PO SCH ×3 (07:51→17:01)
[2016-11-08] MEDS: SEVELAMER CARBONATE 800 MG TABLET. PO SCH ×3 (07:52→17:01)
[2016-11-08] MEDS: risperiDONE 1 MG TABLET. PO SCH (07:52)
[2016-11-08] MEDS: SERTRALINE 50 MG TABLET. PO SCH (07:52)
[2016-11-08] MEDS: DIVALPROEX DELAYED RELEASE 250 MG TABLET.DR. PO SCH ×3 (07:57→21:33)
[2016-11-08] MEDS: HYDRALAZINE 50 MG TABLET PO SCH ×4 (07:57→21:33)
[2016-11-08] MEDS: PANTOPRAZOLE 40 MG TABLET. PO SCH (07:57)
[2016-11-08] MEDS: GABAPENTIN 300 MG CAPSULE. PO SCH (07:57)
[2016-11-08] MEDS: AMLODIPINE BESYLATE 10 MG TABLET PO SCH (07:58)
[2016-11-08] MEDS: CARVEDILOL 12.5 MG TABLET PO SCH ×2 (07:58→17:01)
[2016-11-08] MEDS: lamoTRIgine 25 MG TABLET. PO SCH (07:58)
[2016-11-08] MEDS: DOCUSATE SODIUM 100 MG CAPSULE. PO SCH (07:59)
[2016-11-08 08:52] LABS: RED BLOOD COUNT 2.17 x10^6/uL (3.50-5.40); WHITE BLOOD COUNT 8.9 x10^3/uL (4.0-11.0)
[2016-11-08] MEDS: LIDOCAINE (700MG/PATCH) PATCH. TD SCH (09:00)
[2016-11-08] MEDS: POLYETHYLENE GLYCOL 3350 17 GM PACKET. PO SCH (09:00)
[2016-11-08] MEDS: IRON SUCROSE COMPLEX 200 MG in IV NORMAL SALINE 100ML 100 ML IV SCH (09:00)
[2016-11-08 09:01] LABS: HEMATOCRIT 19.1 % (36.0-47.0); HEMOGLOBIN 6.4 g/dL (12.0-15.5)
[2016-11-08] MEDS ORDERED: ACETAMINOPHEN 325 MG TABLET. PO PRN (09:15)
--- NOTE | 2016-11-08 09:20 | PDOC ---
Subjective: Subjective: Onc f/u- Anemia No changes EGD yesterday- Angiodysplasia, likely also in small bowel. Hgb unchanged Receiving iron, aranesp Objective: Vital Signs: Vital Signs Date Time Temp Pulse Resp B/P Pulse Ox O2 Delivery O2 Flow Rate FiO2 11/08/16 08:06 15 Room Air 11/08/16 07:58 75 141/65 11/08/16 07:32 98.0 98 98.0 11/08/16 06:17 4.0 Physical Exam: Heart: Regular rate Extremities: No edema General: Other (resting comfortably) Lungs: Normal air movement Labs/Imaging: Hgb still 6.4 EGD reviewed as above Hapto, TSH WNL Electrophoresis pending Assessment/Plan A/P: 1. Acute on chronic anemia with obvious iron deficiency anemia and ongoing gastrointestinal bleed due to angiodysplasia s/p EGD 11/07. CKD, Hep C could also be contributing. - Giving her Venofer 500 mg again today, total 1000 mg bolus given in addition to 200 mg 3x/wk she is on with HD. Also on Aranesp with HD. - Hgb electrophoresis ordered to see if she has any hemoglobinopathies which could also lower her baseline - No evidence of hemolysis - 1 unit again ordered today, no meter changes records clerk last few days - Checking fibrinogen, INR again today 2. Angiodysplasia causing GI bleeding - Would octreotide be helpful? Doubt we can keep up with her needs by iron supplementation alone. 3. End-stage renal disease, on dialysis 4. Untreated hepatitis C 5. Reported Polysubstance abuse. CLIFFORD LOUISE DO Nov 08, 2016 09:20
--- NOTE | 2016-11-08 09:48 | PDOC ---
Infectious Disease Note Subjective Subjective still GI bleed ROS ROS GEN: Denies fevers, chills, sweats HEENT: Denies blurred vision, sore throat CV: Denies chest pain RESP: Denies shortness of air, cough GI: Denies n/v/d NEURO: Denies confusion, dizziness MSK: Denies weakness, joint pain/swelling Vital Sign Vital Signs Vital Signs Date Time Temp Pulse Resp B/P Pulse Ox O2 Delivery O2 Flow Rate FiO2 11/08/16 08:36 98 Room Air 11/08/16 08:06 15 11/08/16 07:58 75 141/65 11/08/16 07:32 98.0 98.0 11/08/16 06:17 4.0 Physical Exam PHYSICAL EXAM GENERAL: NAD, Alert HEENT: PERRL, OC/OP NECK: Supple, no JVD, no LN LUNGS: Clear HEART: S1S2, no gallop, no murmur ABD: Soft, NT, no organomegaly, no rebound EXT: No edema, no cyanosis [employer]ER: Alert, oriented x 3, no focal neurologic deficit SKIN: No rash IV: ok Labs Lab Laboratory Tests Test 11/08/16 08:35 White Blood Count 8.9x10^3/uL (4.0-11.0) Red Blood Count 2.17x10^6/uL (3.50-5.40) Hemoglobin 6.4g/dL (12.0-15.5) Hematocrit 19.1% (36.0-47.0) Mean Corpuscular Volume 88fL (79-100) Mean Corpuscular Hemoglobin 30pg (25-35) Mean Corpuscular Hemoglobin Concent 34g/dL (31-37) Red Cell Distribution Width 16.0% (11.5-14.5) Platelet Count 138x10^3/uL (140-400) Objective Assessment Fever Left flank/groin pain ESRD Homeless Plan Plan of Care no antibiotics will s/o , call if questions supportive care JULIA TYLER MD Nov 08, 2016 09:48
--- NOTE | 2016-11-08 10:04 | PDOC ---
PROGRESS NOTES Chief Complaint Chief Complaint anemia, recurrent 1. Abdominal pain, acute on chronic resolved. 2. ESRD on HD 3. Type 2 diabetes 4. High cholesterol 5. Hypertension 6. Hypothyroidism 7. Hepatitis C 8. h/o multisubstance Abuse 9. Chronic back and hip pain 10. Acute on chronic anemia, with ESRD, GI angiodysplasia, 11. Non compliance 12. H/O Schizophrenia, suicidal idea 13. Homelessness Plan Drop in hemoglobin despite blood transfusion , Possible EGD s/p 7 units of PRBC HD per nephrology IV Venofer GI and oncology following. DC planning based on subspecialty input History of Present Illness History of Present Illness no bloody diarrhea no fever Vitals Vitals Vital Signs Date Time Temp Pulse Resp B/P Pulse Ox O2 Delivery O2 Flow Rate FiO2 11/08/16 08:36 98 Room Air 11/08/16 08:06 15 11/08/16 07:58 75 141/65 11/08/16 07:32 98.0 98.0 11/08/16 06:17 4.0 Physical Exam General: Alert, Oriented X3, Other (resting comfortably) Heart: Regular rate Lungs: Clear Abdomen: Normal bowel sounds, Soft, No tenderness, No hepatosplenomegaly, No masses Extremities: No edema Skin: No rashes, No significant lesion Labs LABS Laboratory Tests Test 11/08/16 08:35 White Blood Count 8.9x10^3/uL (4.0-11.0) Red Blood Count 2.17x10^6/uL (3.50-5.40) Hemoglobin 6.4g/dL (12.0-15.5) Hematocrit 19.1% (36.0-47.0) Mean Corpuscular Volume 88fL (79-100) Mean Corpuscular Hemoglobin 30pg (25-35) Mean Corpuscular Hemoglobin Concent 34g/dL (31-37) Red Cell Distribution Width 16.0% (11.5-14.5) Platelet Count 138x10^3/uL (140-400) Assessment and Plan Assessmemt and Plan Problems Medical Problems: (1) Abdominal pain Status: Acute (2) ESRD (end stage renal disease) Status: Acute Problems: Comment Review of Relevant I have reviewed the following items hemal (where applicable) has been applied. Labs Laboratory Tests Test 11/07/16 06:30 11/08/16 08:35 White Blood Count 9.9x10^3/uL (4.0-11.0) 8.9x10^3/uL (4.0-11.0) Red Blood Count 2.14x10^6/uL (3.50-5.40) 2.17x10^6/uL (3.50-5.40) Hemoglobin 6.3g/dL (12.0-15.5) 6.4g/dL (12.0-15.5) Hematocrit 18.9% (36.0-47.0) 19.1% (36.0-47.0) Mean Corpuscular Volume 88fL (79-100) 88fL (79-100) Mean Corpuscular Hemoglobin 29pg (25-35) 30pg (25-35) Mean Corpuscular Hemoglobin Concent 33g/dL (31-37) 34g/dL (31-37) Red Cell Distribution Width 16.9% (11.5-14.5) 16.0% (11.5-14.5) Platelet Count 136x10^3/uL (140-400) 138x10^3/uL (140-400) Neutrophils (%) (Auto) 69% (31-73) Lymphocytes (%) (Auto) 16% (24-48) Monocytes (%) (Auto) 13% (0-9) Eosinophils (%) (Auto) 1% (0-3) Basophils (%) (Auto) 1% (0-3) Neutrophils # (Auto) 6.8x10^3uL (1.8-7.7) Lymphocytes # (Auto) 1.6x10^3/uL (1.0-4.8) Monocytes # (Auto) 1.3x10^3/uL (0.0-1.1) Eosinophils # (Auto) 0.1x10^3/uL (0.0-0.7) Basophils # (Auto) 0.1x10^3/uL (0.0-0.2) Haptoglobin 66mg/dL (34-200) Sodium Level 135mmol/L (136-145) Potassium Level 6.0mmol/L (3.5-5.1) Chloride Level 98mmol/L (98-107) Carbon Dioxide Level 23mmol/L (21-32) Anion Gap 14 (6-14) Blood Urea Nitrogen 135mg/dL (7-20) Creatinine 7.5mg/dL (0.6-1.0) Estimated GFR (Cockcroft-Gault) 6.8 Glucose Level 158mg/dL (70-99) Calcium Level 9.2mg/dL (8.5-10.1) Phosphorus Level 3.7mg/dL (2.6-4.7) Albumin 2.4g/dL (3.4-5.0) Thyroid Stimulating Hormone (TSH) 2.666uIU/mL (0.358-3.74) Laboratory Tests Test 11/08/16 08:35 White Blood Count 8.9x10^3/uL (4.0-11.0) Red Blood Count 2.17x10^6/uL (3.50-5.40) Hemoglobin 6.4g/dL (12.0-15.5) Hematocrit 19.1% (36.0-47.0) Mean Corpuscular Volume 88fL (79-100) Mean Corpuscular Hemoglobin 30pg (25-35) Mean Corpuscular Hemoglobin Concent 34g/dL (31-37) Red Cell Distribution Width 16.0% (11.5-14.5) Platelet Count 138x10^3/uL (140-400) Microbiology 11/02/16 Blood Culture - Final, Complete NO GROWTH AFTER 5 DAYS 10/30/16 Urine Culture - Final, Complete 10/30/16 Urine Culture Result 1 (CHRISTOPH) - Final, Complete 10/30/16 Urine Culture Result 2 (CHRISTOPH) - Final, Complete Medications Current Medications Aspirin (Children'S Aspirin) 324 mg 1X ONCE PO Last administered on 10/30/16 17:05; Start 10/30/16 at 17:00; Stop 10/30/16 at 17:01; Status DC Alprazolam (Xanax) 0.5 mg PRN Q8HRS PRN PO ANXIETY / AGITATION Last administered on 11/06/16 21:19; Start 10/30/16 at 19:30; Stop 11/07/16 at 13:38 ; Status DC Amlodipine Besylate (Norvasc) 10 mg DAILY PO Last administered on 11/08/16 07: 58; Start 10/31/16 at 09:00 Calcium Acetate (Phoslo) 667 mg TIDWMEALS PO Last administered on 10/31/16 08: 43; Start 10/31/16 at 08:00; Stop 10/31/16 at 10:52; Status DC Carvedilol (Coreg) 12.5 mg BIDWMEALS PO Last administered on 11/08/16 07:58; Start 10/31/16 at 08:00 Divalproex Sodium (Depakote) 250 mg TID PO Last administered on 11/08/16 07:57 ; Start 10/30/16 at 21:00 Gabapentin (Neurontin) 300 mg DAILY PO Last administered on 11/08/16 07:57; Start 10/31/16 at 09:00 Hydralazine HCl (Apresoline) 50 mg QID PO Last administered on 11/08/16 07:57 ; Start 10/30/16 at 21:00 Lamotrigine (LaMICtal) 25 mg DAILY PO Last administered on 11/08/16 07:58; Start 10/31/16 at 09:00 Levothyroxine Sodium (Synthroid) 125 mcg DAILY07 PO Last administered on 05:34; Start 10/31/16 at 07:00 Nicotine (Nicoderm Cq 21mg) 1 patch DAILY TD Last administered on 11/08/16 07: 51; Start 10/31/16 at 09:00 Atorvastatin Calcium (Lipitor) 20 mg QHS PO Last administered on 11/07/16 20: 30; Start 10/30/16 at 22:00 Olanzapine (Zyprexa) 10 mg QHS PO Last administered on 11/07/16 20:30; Start 10/30/16 at 21:30 Non-Formulary Medication 1 tab PRN BID PRN PO Severe pain; Start 10/30/16 at 19 :30; Stop 10/30/16 at 19:34; Status DC Risperidone (Risperdal) 4 mg DAILY PO Last administered on 11/08/16 07:52; Start 10/31/16 at 09:00 Sertraline HCl (Zoloft) 200 mg DAILY PO Last administered on 11/08/16 07:52; Start 10/31/16 at 09:00 Sevelamer Carbonate (Renvela) 800 mg TIDWMEALS PO Last administered on 07:52; Start 10/31/16 at 08:00 Ondansetron HCl (Zofran) 4 mg PRN Q6HRS PRN IV NAUSEA/VOMITING Last administered on 11/07/16 05:38; Start 10/30/16 at 19:30 Acetaminophen/ Hydrocodone Bitart (Lortab 5/325) 1 tab PRN Q4HRS PRN PO MILD PAIN Last administered on 11/05/16 09:17; Start 10/30/16 at 19:30; Stop at 09:29; Status DC Acetaminophen (Tylenol) 650 mg PRN Q6HRS PRN PO MILD PAIN / TEMP; Start at 19:30; Status UNV Heparin Sodium (Porcine) 5,000 unit Q8HRS SQ Last administered on 11/02/16 14: 00; Start 10/30/16 at 22:00; Stop 11/04/16 at 08:43; Status DC Acetaminophen (Tylenol) 650 mg PRN Q6HRS PRN PO FEVER Last administered on 11/02 18:08; Start 10/30/16 at 19:45 Hydralazine HCl (Apresoline) 10 mg PRN Q5MIN PRN IVP ELEVATED BP, SEE COMMENTS ; Start 10/30/16 at 19:45 Pantoprazole Sodium (Protonix) 40 mg DAILYAC PO Last administered on 11/08/16 07:57; Start 10/31/16 at 07:30 Ferrous Sulfate 300 mg BIDWMEALS PO Last administered on 11/03/16 08:36; Start 10/31/16 at 10:00; Stop 11/03/16 at 10:32; Status DC Polyethylene Glycol 17 gm 17 gm DAILY PO Last administered on 11/05/16 08:31; Start 10/31/16 at 12:00 Magnesium Sulfate/ Dextrose 50 ml @ 25 mls/hr PRN DAILY PRN IV for Mag < 1.7 on am labs; Start 10/31/16 at 10:45 Iron Sucrose/ Sodium Chloride (Venofer/Iv Sodium Chloride 0.9% 100ml) 110 ml @ 55 mls/hr 3X/WEEK IV Last administered on 11/06/16 10:04; Start 11/01/16 at 09 :00; Stop 11/10/16 at 10:59 Polyethylene Glycol (miraLAX PACKET) 17 gm PRN DAILY PRN PO CONSTIPATION; Start 10/31/16 at 10:45 Calcium Acetate 2001 mg 2,001 mg TIDWMEALS PO Last administered on 11/08/16 07 :51; Start 10/31/16 at 12:00 Sodium Chloride 1,000 ml @ 1,000 mls/hr Q1H PRN IV hypotension; Start 10/31/16 at 16:46; Stop 10/31/16 at 22:45; Status DC Albumin Human (Albuminar) 200 ml @ 200 mls/hr 1X PRN PRN IV Hypotension; Start 10/31/16 at 17:00; Stop 10/31/16 at 22:59; Status DC Acetaminophen (Tylenol) 500 mg 1X PRN PRN PO MILD PAIN / TEMP; Start 10/31/16 at 17:00; Stop 11/01/16 at 16:59; Status DC Diphenhydramine HCl (Benadryl) 25 mg 1X PRN PRN IV ITCHING; Start 10/31/16 at 17:00; Stop 11/01/16 at 16:59; Status DC Diphenhydramine HCl 25 mg 25 mg 1X PRN PRN IV ITCHING; Start 10/31/16 at 17:00 ; Stop 11/01/16 at 16:59; Status DC Sodium Chloride (Iv Sodium Chloride 0.9% 1000ml Bag) 1,000 ml @ 400 mls/hr Q2H30M PRN IV PATENCY; Start 10/31/16 at 16:46; Stop 11/01/16 at 04:45; Status DC Info (PHARMACY MONITORING -- do not chart) 1 each PRN DAILY PRN MC SEE COMMENTS ; Start 10/31/16 at 17:00; Stop 11/04/16 at 13:14; Status DC Docusate Sodium (Colace) 100 mg DAILY PO Last administered on 11/05/16 08:32; Start 11/01/16 at 09:00; Stop 11/06/16 at 14:07; Status DC Fentanyl Citrate 50 mcg 50 mcg 1X ONCE IV Last administered on 11/01/16 11:14 ; Start 11/01/16 at 11:15; Stop 11/01/16 at 11:16; Status DC Sodium Chloride (Iv Sodium Chloride 0.9% 1000ml Bag) 1,000 ml @ 1,000 mls/hr Q1H PRN IV hypotension; Start 11/02/16 at 07:39; Stop 11/02/16 at 13:38; Status DC Acetaminophen (Tylenol) 500 mg 1X PRN PRN PO MILD PAIN / TEMP; Start 11/02/16 at 07:45; Stop 11/03/16 at 07:44; Status DC Diphenhydramine HCl (Benadryl) 25 mg 1X PRN PRN IV ITCHING Last administered on 11/02/16 15:55; Start 11/02/16 at 07:45; Stop 11/03/16 at 07:44; Status DC Diphenhydramine HCl (Benadryl) 25 mg 1X PRN PRN IV ITCHING Last administered on 11/02/16 08:41; Start 11/02/16 at 07:45; Stop 11/03/16 at 07:44; Status DC Labetalol HCl 10 mg 10 mg PRN Q1HR PRN IVP SBP > 180; Start 11/02/16 at 07:45; Stop 11/03/16 at 07:44; Status DC Sodium Chloride (Iv Sodium Chloride 0.9% 1000ml Bag) 1,000 ml @ 400 mls/hr Q2H30M PRN IV PATENCY; Start 11/02/16 at 07:39; Stop 11/02/16 at 19:38; Status DC Info (PHARMACY MONITORING -- do not chart) 1 each PRN DAILY PRN MC SEE COMMENTS ; Start 11/02/16 at 07:45; Stop 11/02/16 at 07:51; Status DC Calcium Carbonate/ Glycine (Tums) 500 mg PRN AFTMEALHC PRN PO INDIGESTION Last administered on 11/07/16 17:31; Start 11/02/16 at 15:15 Lidocaine (Lidoderm) 1 patch DAILY TD Last administered on 11/06/16 09:39; Start 11/02/16 at 15:45 Vancomycin HCl 1 each 1 each PRN DAILY PRN MC SEE COMMENTS Last administered on 11/04/16 14:19; Start 11/02/16 at 18:30; Stop 11/06/16 at 11:31; Status DC Piperacillin Sod/ Tazobactam Sod 2.25 gm/Sodium Chloride 50 ml @ 100 mls/hr Q8HRS IV Last administered on 11/06/16 05:54; Start 11/02/16 at 18:30; Stop at 11:31; Status DC Vancomycin HCl/ Sodium Chloride (Iv Sodium Chloride 0.9% 500ml Bag) 500 ml @ 250 mls/hr 1X ONCE IV Last administered on 11/02/16 21:12; Start 11/02/16 at 18:30; Stop 11/02/16 at 20:29; Status DC Vancomycin HCl 1 each 1X ONCE MC Last administered on 11/04/16 06:00; Start 11/04/16 at 06:00; Stop 11/04/16 at 06:01; Status DC Diphenhydramine HCl (Benadryl) 25 mg PRN Q6HRS PRN PO ITCHING Last administered on 11/04/16 22:08; Start 11/03/16 at 02:00 Darbepoetin Sourav 60 mcg 60 mcg WEEKLYHS SQ Last administered on 11/03/16 21:42 ; Start 11/03/16 at 21:00 Sodium Chloride 1,000 ml @ 1,000 mls/hr Q1H PRN IV hypotension; Start 11/04/16 at 06:23; Stop 11/04/16 at 12:22; Status DC Albumin Human (Albuminar) 200 ml @ 200 mls/hr 1X PRN PRN IV Hypotension; Start 11/04/16 at 06:30; Stop 11/04/16 at 12:29; Status DC Acetaminophen (Tylenol) 500 mg 1X PRN PRN PO MILD PAIN / TEMP; Start 11/04/16 at 06:30; Stop 11/05/16 at 06:29; Status DC Diphenhydramine HCl (Benadryl) 25 mg 1X PRN PRN IV ITCHING Last administered on 11/04/16 06:57; Start 11/04/16 at 06:30; Stop 11/05/16 at 06:29; Status DC Diphenhydramine HCl (Benadryl) 25 mg 1X PRN PRN IV ITCHING; Start 11/04/16 at 06:30; Stop 11/05/16 at 06:29; Status DC Labetalol HCl (Normodyne) 10 mg PRN Q1HR PRN IVP SBP > 180; Start 11/04/16 at 06:30; Stop 11/05/16 at 06:29; Status DC Clonidine HCl (Catapres) 0.1 mg 1X PRN PRN PO SBP > 180; Start 11/04/16 at 06: 30; Stop 11/05/16 at 06:29; Status DC Info 1 each 1 each PRN DAILY PRN MC SEE COMMENTS; Start 11/04/16 at 06:30 Vancomycin HCl/ Sodium Chloride (Iv Sodium Chloride 0.9% 100ml) 100 ml @ 100 mls/hr QTUTHSA IV Last administered on 11/04/16 16:08; Start 11/04/16 at 16:00 ; Stop 11/06/16 at 11:31; Status DC Acetaminophen/ Hydrocodone Bitart (Lortab 7.5/325) 1 tab PRN Q6HRS PRN PO PAIN Last administered on 11/08/16 05:17; Start 11/05/16 at 09:30 Morphine Sulfate 1 mg PRN Q4HRS PRN IV PAIN Last administered on 11/08/16 08: 06; Start 11/05/16 at 09:30 Docusate Sodium (Colace) 100 mg DAILY PO Last administered on 11/08/16 07:59; Start 11/07/16 at 09:00 Alprazolam 0.5 mg 0.5 mg STK-MED ONCE .ROUTE Last administered on 11/07/16 20: 31; Start 11/06/16 at 20:33; Stop 11/06/16 at 20:34; Status DC Sodium Chloride 1,000 ml @ 1,000 mls/hr Q1H PRN IV hypotension; Start 11/07/16 at 08:23; Stop 11/07/16 at 14:22; Status DC Sodium Chloride (Iv Sodium Chloride 0.9% 1000ml Bag) 1,000 ml @ 400 mls/hr Q2H30M PRN IV PATENCY; Start 11/07/16 at 08:23; Stop 11/07/16 at 20:22; Status DC Info 1 each 1 each PRN DAILY PRN MC SEE COMMENTS; Start 11/07/16 at 08:30; Stop 11/07/16 at 13:47; Status DC Iron Sucrose 500 mg/Sodium Chloride 275 ml @ 78.571 mls/ hr 1X ONCE IV ; Start 11/07/16 at 09:00; Stop 11/07/16 at 12:29; Status DC Propofol (Diprivan) 20 ml @ As Directed STK-MED ONCE IV ; Start 11/07/16 at 13: 22; Stop 11/07/16 at 13:23; Status DC Alprazolam 0.5 mg 0.5 mg PRN Q8HRS PRN PO ANXIETY / AGITATION Last administered on 11/07/16 17:41; Start 11/07/16 at 13:45 Iron Sucrose/ Sodium Chloride (Venofer/Iv Sodium Chloride 0.9% 250ml) 275 ml @ 78.571 mls/ hr 1X ONCE IV Last administered on 11/08/16 06:30; Start at 06:30; Stop 11/08/16 at 09:59; Status DC Acetaminophen (Tylenol) 650 mg 1X PRN PRN PO PRN prior to blood transfusion; Start 11/08/16 at 09:15; Stop 11/09/16 at 09:14 Active Scripts Active Percocet 5-325 Mg Tablet (Oxycodone/Acetaminophen) 1 Each Tablet 1 Tab PO QID PRN Alprazolam 0.5 Mg Tablet 0.5 Mg PO Q8HRS PRN Oxycodone Hcl 10 Mg Tablet 1 Tab PO PRN BID PRN Olanzapine Odt (Olanzapine) 10 Mg Tab.rapdis 10 Mg PO QHS Lamotrigine 25 Mg Tablet 25 Mg PO DAILY 30 Days Zoloft (Sertraline Hcl) 100 Mg Tablet 200 Mg PO DAILY Risperidone 4 Mg Tablet 4 Mg PO DAILY Zofran Odt (Ondansetron) 4 Mg Tab.rapdis 1 Tab SL Q8HRS Reported NICODERM CQ 21mg (Nicotine) 1 Each Patch.td24 1 Patch TP DAILY Depakote (Divalproex Sodium) 250 Mg Tablet.dr 250 Mg PO TID Amlodipine Besylate 10 Mg Tablet 10 Mg PO DAILY Hydralazine Hcl 50 Mg Tablet 50 Mg PO QID Renagel (Sevelamer Hcl) 800 Mg Tablet 800 Mg PO TIDWMEALS Simvastatin 40 Mg Tablet 40 Mg PO HS Levothyroxine Sodium 125 Mcg Tablet 125 Mcg PO DAILYAC Gabapentin 300 Mg Capsule 300 Mg PO DAILY Phoslo (Calcium Acetate) 667 Mg Capsule 667 Mg PO TIDWMEALS Carvedilol 12.5 Mg Tablet 12.5 Mg PO BIDWMEALS Vitals/I & O Vital Sign - Last 24 Hours 11/07/16 11/07/16 11/07/16 11/07/16 10:06 11:33 11:39 11:40 Temp 97.6 98.6 97.6 98.6 Pulse 72 74 74 Resp 16 18 B/P 150/74 152/66 152/66 Pulse Ox 97 95 O2 Delivery Room Air Room Air 11/07/16 11/07/16 11/07/16 11/07/16 12:52 12:54 13:51 14:05 Temp 98.6 99.5 98.6 99.5 Pulse 76 92 81 Resp 16 20 20 B/P 188/93 152/68 Pulse Ox 100 100 98 O2 Delivery Room Air Nasal Cannula Room Air O2 Flow Rate 4.0 11/07/16 11/07/16 11/07/16 11/07/16 15:15 15:56 17:32 17:32 Temp 99.0 99.0 Pulse 69 77 Resp 20 B/P 148/75 156/75 Pulse Ox 96 96 96 O2 Delivery Room Air Room Air Room Air 11/07/16 11/07/16 11/07/16 11/07/16 17:33 19:00 20:00 20:30 Temp 98.8 98.8 Pulse 77 78 78 Resp 16 B/P 156/75 135/67 135/67 Pulse Ox 95 O2 Delivery Room Air Room Air 11/07/16 11/07/16 11/08/16 11/08/16 20:31 22:51 02:31 03:00 Temp 97.9 98.6 97.9 98.6 Pulse 75 72 Resp 18 16 16 B/P 100/55 131/60 Pulse Ox 92 92 97 O2 Delivery Room Air Room Air Room Air Room Air O2 Flow Rate 4.0 11/08/16 11/08/16 11/08/16 11/08/16 03:30 05:17 06:17 07:32 Temp 98.0 98.0 Pulse 75 Resp 18 18 18 18 B/P 141/65 Pulse Ox 92 92 98 O2 Delivery Room Air Room Air Room Air O2 Flow Rate 4.0 4.0 4.0 11/08/16 11/08/16 11/08/16 11/08/16 07:57 07:58 07:58 08:06 Pulse 75 75 75 Resp 15 B/P 141/65 141/65 141/65 O2 Delivery Room Air 11/08/16 08:36 Pulse Ox 98 O2 Delivery Room Air Intake and Output 11/07/16 11/07/16 11/08/16 15:00 23:00 07:00 Intake Total 1250 ml 0 ml 240 ml Balance 1250 ml 0 ml 240 ml BRANDI JARA MD Nov 08, 2016 10:04
--- NOTE | 2016-11-08 10:15 | PDOC ---
G I PROGRESS NOTE Subjective Feeling so-so. Says ate some today. Physical Exam Lungs clear anteriorly. RRR Abdomen soft, not distended nor particularly tender today. Review of Relevant I have reviewed the following items hemal (where applicable) has been applied. Labs Laboratory Tests Test 11/07/16 06:30 11/08/16 08:35 White Blood Count 9.9x10^3/uL (4.0-11.0) 8.9x10^3/uL (4.0-11.0) Red Blood Count 2.14x10^6/uL (3.50-5.40) 2.17x10^6/uL (3.50-5.40) Hemoglobin 6.3g/dL (12.0-15.5) 6.4g/dL (12.0-15.5) Hematocrit 18.9% (36.0-47.0) 19.1% (36.0-47.0) Mean Corpuscular Volume 88fL (79-100) 88fL (79-100) Mean Corpuscular Hemoglobin 29pg (25-35) 30pg (25-35) Mean Corpuscular Hemoglobin Concent 33g/dL (31-37) 34g/dL (31-37) Red Cell Distribution Width 16.9% (11.5-14.5) 16.0% (11.5-14.5) Platelet Count 136x10^3/uL (140-400) 138x10^3/uL (140-400) Neutrophils (%) (Auto) 69% (31-73) Lymphocytes (%) (Auto) 16% (24-48) Monocytes (%) (Auto) 13% (0-9) Eosinophils (%) (Auto) 1% (0-3) Basophils (%) (Auto) 1% (0-3) Neutrophils # (Auto) 6.8x10^3uL (1.8-7.7) Lymphocytes # (Auto) 1.6x10^3/uL (1.0-4.8) Monocytes # (Auto) 1.3x10^3/uL (0.0-1.1) Eosinophils # (Auto) 0.1x10^3/uL (0.0-0.7) Basophils # (Auto) 0.1x10^3/uL (0.0-0.2) Haptoglobin 66mg/dL (34-200) Sodium Level 135mmol/L (136-145) Potassium Level 6.0mmol/L (3.5-5.1) Chloride Level 98mmol/L (98-107) Carbon Dioxide Level 23mmol/L (21-32) Anion Gap 14 (6-14) Blood Urea Nitrogen 135mg/dL (7-20) Creatinine 7.5mg/dL (0.6-1.0) Estimated GFR (Cockcroft-Gault) 6.8 Glucose Level 158mg/dL (70-99) Calcium Level 9.2mg/dL (8.5-10.1) Phosphorus Level 3.7mg/dL (2.6-4.7) Albumin 2.4g/dL (3.4-5.0) Thyroid Stimulating Hormone (TSH) 2.666uIU/mL (0.358-3.74) Laboratory Tests Test 11/08/16 08:35 White Blood Count 8.9x10^3/uL (4.0-11.0) Red Blood Count 2.17x10^6/uL (3.50-5.40) Hemoglobin 6.4g/dL (12.0-15.5) Hematocrit 19.1% (36.0-47.0) Mean Corpuscular Volume 88fL (79-100) Mean Corpuscular Hemoglobin 30pg (25-35) Mean Corpuscular Hemoglobin Concent 34g/dL (31-37) Red Cell Distribution Width 16.0% (11.5-14.5) Platelet Count 138x10^3/uL (140-400) Microbiology 11/02/16 Blood Culture - Final, Complete NO GROWTH AFTER 5 DAYS 10/30/16 Urine Culture - Final, Complete 10/30/16 Urine Culture Result 1 (CHRISTOPH) - Final, Complete 10/30/16 Urine Culture Result 2 (CHRISTOPH) - Final, Complete No matter what we do, hemoglobin sticks ~6. She reset her "hemostat"? Medications Current Medications Aspirin (Children'S Aspirin) 324 mg 1X ONCE PO Last administered on 10/30/16t 17:05; Start 10/30/16 at 17:00; Stop 10/30/16 at 17:01; Status DC Alprazolam (Xanax) 0.5 mg PRN Q8HRS PRN PO ANXIETY / AGITATION Last administered on 11/06/16 21:19; Start 10/30/16 at 19:30; Stop 11/07/16 at 13:38 ; Status DC Amlodipine Besylate (Norvasc) 10 mg DAILY PO Last administered on 11/08/16 07: 58; Start 10/31/16 at 09:00 Calcium Acetate (Phoslo) 667 mg TIDWMEALS PO Last administered on 10/31/16 08: 43; Start 10/31/16 at 08:00; Stop 10/31/16 at 10:52; Status DC Carvedilol (Coreg) 12.5 mg BIDWMEALS PO Last administered on 11/08/16 07:58; Start 10/31/16 at 08:00 Divalproex Sodium (Depakote) 250 mg TID PO Last administered on 11/08/16 07:57 ; Start 10/30/16 at 21:00 Gabapentin (Neurontin) 300 mg DAILY PO Last administered on 11/08/16 07:57; Start 10/31/16 at 09:00 Hydralazine HCl (Apresoline) 50 mg QID PO Last administered on 11/08/16 07:57 ; Start 10/30/16 at 21:00 Lamotrigine (LaMICtal) 25 mg DAILY PO Last administered on 11/08/16 07:58; Start 10/31/16 at 09:00 Levothyroxine Sodium (Synthroid) 125 mcg DAILY07 PO Last administered on 05:34; Start 10/31/16 at 07:00 Nicotine (Nicoderm Cq 21mg) 1 patch DAILY TD Last administered on 11/08/16 07: 51; Start 10/31/16 at 09:00 Atorvastatin Calcium (Lipitor) 20 mg QHS PO Last administered on 11/07/16 20: 30; Start 10/30/16 at 22:00 Olanzapine (Zyprexa) 10 mg QHS PO Last administered on 11/07/16 20:30; Start 10/30/16 at 21:30 Non-Formulary Medication 1 tab PRN BID PRN PO Severe pain; Start 10/30/16 at 19 :30; Stop 10/30/16 at 19:34; Status DC Risperidone (Risperdal) 4 mg DAILY PO Last administered on 11/08/16 07:52; Start 10/31/16 at 09:00 Sertraline HCl (Zoloft) 200 mg DAILY PO Last administered on 11/08/16 07:52; Start 10/31/16 at 09:00 Sevelamer Carbonate (Renvela) 800 mg TIDWMEALS PO Last administered on 07:52; Start 10/31/16 at 08:00 Ondansetron HCl (Zofran) 4 mg PRN Q6HRS PRN IV NAUSEA/VOMITING Last administered on 11/07/16 05:38; Start 10/30/16 at 19:30 Acetaminophen/ Hydrocodone Bitart (Lortab 5/325) 1 tab PRN Q4HRS PRN PO MILD PAIN Last administered on 11/05/16 09:17; Start 10/30/16 at 19:30; Stop at 09:29; Status DC Acetaminophen (Tylenol) 650 mg PRN Q6HRS PRN PO MILD PAIN / TEMP; Start at 19:30; Status UNV Heparin Sodium (Porcine) 5,000 unit Q8HRS SQ Last administered on 11/02/16 14: 00; Start 10/30/16 at 22:00; Stop 11/04/16 at 08:43; Status DC Acetaminophen (Tylenol) 650 mg PRN Q6HRS PRN PO FEVER Last administered on 11/02 18:08; Start 10/30/16 at 19:45 Hydralazine HCl (Apresoline) 10 mg PRN Q5MIN PRN IVP ELEVATED BP, SEE COMMENTS ; Start 10/30/16 at 19:45 Pantoprazole Sodium (Protonix) 40 mg DAILYAC PO Last administered on 11/08/16 07:57; Start 10/31/16 at 07:30 Ferrous Sulfate 300 mg BIDWMEALS PO Last administered on 11/03/16 08:36; Start 10/31/16 at 10:00; Stop 11/03/16 at 10:32; Status DC Polyethylene Glycol 17 gm 17 gm DAILY PO Last administered on 11/05/16 08:31; Start 10/31/16 at 12:00 Magnesium Sulfate/ Dextrose 50 ml @ 25 mls/hr PRN DAILY PRN IV for Mag < 1.7 on am labs; Start 10/31/16 at 10:45 Iron Sucrose/ Sodium Chloride (Venofer/Iv Sodium Chloride 0.9% 100ml) 110 ml @ 55 mls/hr 3X/WEEK IV Last administered on 11/06/16 10:04; Start 11/01/16 at 09 :00; Stop 11/10/16 at 10:59 Polyethylene Glycol (miraLAX PACKET) 17 gm PRN DAILY PRN PO CONSTIPATION; Start 10/31/16 at 10:45 Calcium Acetate 2001 mg 2,001 mg TIDWMEALS PO Last administered on 11/08/16 07 :51; Start 10/31/16 at 12:00 Sodium Chloride 1,000 ml @ 1,000 mls/hr Q1H PRN IV hypotension; Start 10/31/16 at 16:46; Stop 10/31/16 at 22:45; Status DC Albumin Human (Albuminar) 200 ml @ 200 mls/hr 1X PRN PRN IV Hypotension; Start 10/31/16 at 17:00; Stop 10/31/16 at 22:59; Status DC Acetaminophen (Tylenol) 500 mg 1X PRN PRN PO MILD PAIN / TEMP; Start 10/31/16 at 17:00; Stop 11/01/16 at 16:59; Status DC Diphenhydramine HCl (Benadryl) 25 mg 1X PRN PRN IV ITCHING; Start 10/31/16 at 17:00; Stop 11/01/16 at 16:59; Status DC Diphenhydramine HCl 25 mg 25 mg 1X PRN PRN IV ITCHING; Start 10/31/16 at 17:00 ; Stop 11/01/16 at 16:59; Status DC Sodium Chloride (Iv Sodium Chloride 0.9% 1000ml Bag) 1,000 ml @ 400 mls/hr Q2H30M PRN IV PATENCY; Start 10/31/16 at 16:46; Stop 11/01/16 at 04:45; Status DC Info (PHARMACY MONITORING -- do not chart) 1 each PRN DAILY PRN MC SEE COMMENTS ; Start 10/31/16 at 17:00; Stop 11/04/16 at 13:14; Status DC Docusate Sodium (Colace) 100 mg DAILY PO Last administered on 11/05/16 08:32; Start 11/01/16 at 09:00; Stop 11/06/16 at 14:07; Status DC Fentanyl Citrate 50 mcg 50 mcg 1X ONCE IV Last administered on 11/01/16 11:14 ; Start 11/01/16 at 11:15; Stop 11/01/16 at 11:16; Status DC Sodium Chloride (Iv Sodium Chloride 0.9% 1000ml Bag) 1,000 ml @ 1,000 mls/hr Q1H PRN IV hypotension; Start 11/02/16 at 07:39; Stop 11/02/16 at 13:38; Status DC Acetaminophen (Tylenol) 500 mg 1X PRN PRN PO MILD PAIN / TEMP; Start 11/02/16 at 07:45; Stop 11/03/16 at 07:44; Status DC Diphenhydramine HCl (Benadryl) 25 mg 1X PRN PRN IV ITCHING Last administered on 11/02/16 15:55; Start 11/02/16 at 07:45; Stop 11/03/16 at 07:44; Status DC Diphenhydramine HCl (Benadryl) 25 mg 1X PRN PRN IV ITCHING Last administered on 11/02/16 08:41; Start 11/02/16 at 07:45; Stop 11/03/16 at 07:44; Status DC Labetalol HCl 10 mg 10 mg PRN Q1HR PRN IVP SBP > 180; Start 11/02/16 at 07:45; Stop 11/03/16 at 07:44; Status DC Sodium Chloride (Iv Sodium Chloride 0.9% 1000ml Bag) 1,000 ml @ 400 mls/hr Q2H30M PRN IV PATENCY; Start 11/02/16 at 07:39; Stop 11/02/16 at 19:38; Status DC Info (PHARMACY MONITORING -- do not chart) 1 each PRN DAILY PRN MC SEE COMMENTS ; Start 11/02/16 at 07:45; Stop 11/02/16 at 07:51; Status DC Calcium Carbonate/ Glycine (Tums) 500 mg PRN AFTMEALHC PRN PO INDIGESTION Last administered on 11/07/16 17:31; Start 11/02/16 at 15:15 Lidocaine (Lidoderm) 1 patch DAILY TD Last administered on 11/06/16 09:39; Start 11/02/16 at 15:45 Vancomycin HCl 1 each 1 each PRN DAILY PRN MC SEE COMMENTS Last administered on 11/04/16 14:19; Start 11/02/16 at 18:30; Stop 11/06/16 at 11:31; Status DC Piperacillin Sod/ Tazobactam Sod 2.25 gm/Sodium Chloride 50 ml @ 100 mls/hr Q8HRS IV Last administered on 11/06/16 05:54; Start 11/02/16 at 18:30; Stop at 11:31; Status DC Vancomycin HCl/ Sodium Chloride (Iv Sodium Chloride 0.9% 500ml Bag) 500 ml @ 250 mls/hr 1X ONCE IV Last administered on 11/02/16 21:12; Start 11/02/16 at 18:30; Stop 11/02/16 at 20:29; Status DC Vancomycin HCl 1 each 1X ONCE MC Last administered on 11/04/16 06:00; Start 11/04/16 at 06:00; Stop 11/04/16 at 06:01; Status DC Diphenhydramine HCl (Benadryl) 25 mg PRN Q6HRS PRN PO ITCHING Last administered on 11/04/16 22:08; Start 11/03/16 at 02:00 Darbepoetin Sourav 60 mcg 60 mcg WEEKLYHS SQ Last administered on 11/03/16 21:42 ; Start 11/03/16 at 21:00 Sodium Chloride 1,000 ml @ 1,000 mls/hr Q1H PRN IV hypotension; Start 11/04/16 at 06:23; Stop 11/04/16 at 12:22; Status DC Albumin Human (Albuminar) 200 ml @ 200 mls/hr 1X PRN PRN IV Hypotension; Start 11/04/16 at 06:30; Stop 11/04/16 at 12:29; Status DC Acetaminophen (Tylenol) 500 mg 1X PRN PRN PO MILD PAIN / TEMP; Start 11/04/16 at 06:30; Stop 11/05/16 at 06:29; Status DC Diphenhydramine HCl (Benadryl) 25 mg 1X PRN PRN IV ITCHING Last administered on 11/04/16 06:57; Start 11/04/16 at 06:30; Stop 11/05/16 at 06:29; Status DC Diphenhydramine HCl (Benadryl) 25 mg 1X PRN PRN IV ITCHING; Start 11/04/16 at 06:30; Stop 11/05/16 at 06:29; Status DC Labetalol HCl (Normodyne) 10 mg PRN Q1HR PRN IVP SBP > 180; Start 11/04/16 at 06:30; Stop 11/05/16 at 06:29; Status DC Clonidine HCl (Catapres) 0.1 mg 1X PRN PRN PO SBP > 180; Start 11/04/16 at 06: 30; Stop 11/05/16 at 06:29; Status DC Info 1 each 1 each PRN DAILY PRN MC SEE COMMENTS; Start 11/04/16 at 06:30 Vancomycin HCl/ Sodium Chloride (Iv Sodium Chloride 0.9% 100ml) 100 ml @ 100 mls/hr QTUTHSA IV Last administered on 11/04/16 16:08; Start 11/04/16 at 16:00 ; Stop 11/06/16 at 11:31; Status DC Acetaminophen/ Hydrocodone Bitart (Lortab 7.5/325) 1 tab PRN Q6HRS PRN PO PAIN Last administered on 11/08/16 05:17; Start 11/05/16 at 09:30 Morphine Sulfate 1 mg PRN Q4HRS PRN IV PAIN Last administered on 11/08/16 08: 06; Start 11/05/16 at 09:30 Docusate Sodium (Colace) 100 mg DAILY PO Last administered on 11/08/16 07:59; Start 11/07/16 at 09:00 Alprazolam 0.5 mg 0.5 mg STK-MED ONCE .ROUTE Last administered on 11/07/16 20: 31; Start 11/06/16 at 20:33; Stop 11/06/16 at 20:34; Status DC Sodium Chloride 1,000 ml @ 1,000 mls/hr Q1H PRN IV hypotension; Start 11/07/16 at 08:23; Stop 11/07/16 at 14:22; Status DC Sodium Chloride (Iv Sodium Chloride 0.9% 1000ml Bag) 1,000 ml @ 400 mls/hr Q2H30M PRN IV PATENCY; Start 11/07/16 at 08:23; Stop 11/07/16 at 20:22; Status DC Info 1 each 1 each PRN DAILY PRN MC SEE COMMENTS; Start 11/07/16 at 08:30; Stop 11/07/16 at 13:47; Status DC Iron Sucrose 500 mg/Sodium Chloride 275 ml @ 78.571 mls/ hr 1X ONCE IV ; Start 11/07/16 at 09:00; Stop 11/07/16 at 12:29; Status DC Propofol (Diprivan) 20 ml @ As Directed STK-MED ONCE IV ; Start 11/07/16 at 13: 22; Stop 11/07/16 at 13:23; Status DC Alprazolam 0.5 mg 0.5 mg PRN Q8HRS PRN PO ANXIETY / AGITATION Last administered on 11/07/16t 17:41; Start 11/07/16 at 13:45 Iron Sucrose/ Sodium Chloride (Venofer/Iv Sodium Chloride 0.9% 250ml) 275 ml @ 78.571 mls/ hr 1X ONCE IV Last administered on 11/08/16t 06:30; Start at 06:30; Stop 11/08/16 at 09:59; Status DC Acetaminophen (Tylenol) 650 mg 1X PRN PRN PO PRN prior to blood transfusion; Start 11/08/16 at 09:15; Stop 11/09/16 at 09:14 Active Scripts Active Percocet 5-325 Mg Tablet (Oxycodone/Acetaminophen) 1 Each Tablet 1 Tab PO QID PRN Alprazolam 0.5 Mg Tablet 0.5 Mg PO Q8HRS PRN Oxycodone Hcl 10 Mg Tablet 1 Tab PO PRN BID PRN Olanzapine Odt (Olanzapine) 10 Mg Tab.rapdis 10 Mg PO QHS Lamotrigine 25 Mg Tablet 25 Mg PO DAILY 30 Days Zoloft (Sertraline Hcl) 100 Mg Tablet 200 Mg PO DAILY Risperidone 4 Mg Tablet 4 Mg PO DAILY Zofran Odt (Ondansetron) 4 Mg Tab.rapdis 1 Tab SL Q8HRS Reported NICODERM CQ 21mg (Nicotine) 1 Each Patch.td24 1 Patch TP DAILY Depakote (Divalproex Sodium) 250 Mg Tablet.dr 250 Mg PO TID Amlodipine Besylate 10 Mg Tablet 10 Mg PO DAILY Hydralazine Hcl 50 Mg Tablet 50 Mg PO QID Renagel (Sevelamer Hcl) 800 Mg Tablet 800 Mg PO TIDWMEALS Simvastatin 40 Mg Tablet 40 Mg PO HS Levothyroxine Sodium 125 Mcg Tablet 125 Mcg PO DAILYAC Gabapentin 300 Mg Capsule 300 Mg PO DAILY Phoslo (Calcium Acetate) 667 Mg Capsule 667 Mg PO TIDWMEALS Carvedilol 12.5 Mg Tablet 12.5 Mg PO BIDWMEALS Vitals/I & O Vital Sign - Last 24 Hours 11/07/16 11/07/16 11/07/16 11/07/16 11:33 11:39 11:40 12:52 Temp 98.6 98.6 Pulse 74 74 Resp 18 B/P 152/66 152/66 Pulse Ox 97 95 O2 Delivery Room Air Room Air Room Air 11/07/16 11/07/16 11/07/16 11/07/16 12:54 13:51 14:05 15:15 Temp 98.6 99.5 99.0 98.6 99.5 99.0 Pulse 76 92 81 69 Resp 16 20 20 20 B/P 188/93 152/68 148/75 Pulse Ox 100 100 98 96 O2 Delivery Nasal Cannula Room Air Room Air O2 Flow Rate 4.0 11/07/16 11/07/16 11/07/16 11/07/16 15:56 17:32 17:32 17:33 Pulse 77 77 B/P 156/75 156/75 Pulse Ox 96 96 O2 Delivery Room Air Room Air 11/07/16 11/07/16 11/07/16 11/07/16 19:00 20:00 20:30 20:31 Temp 98.8 98.8 Pulse 78 78 Resp 16 18 B/P 135/67 135/67 Pulse Ox 95 O2 Delivery Room Air Room Air Room Air 11/07/16 11/08/16 11/08/16 11/08/16 22:51 02:31 03:00 03:30 Temp 97.9 98.6 97.9 98.6 Pulse 75 72 Resp 16 16 18 B/P 100/55 131/60 Pulse Ox 92 92 97 O2 Delivery Room Air Room Air Room Air O2 Flow Rate 4.0 4.0 11/08/16 11/08/16 11/08/16 11/08/16 05:17 06:17 07:32 07:57 Temp 98.0 98.0 Pulse 75 75 Resp 18 18 18 B/P 141/65 141/65 Pulse Ox 92 92 98 O2 Delivery Room Air Room Air Room Air O2 Flow Rate 4.0 4.0 11/08/16 11/08/16 11/08/16 11/08/16 07:58 07:58 08:06 08:36 Pulse 75 75 Resp 15 B/P 141/65 141/65 Pulse Ox 98 O2 Delivery Room Air Room Air Intake and Output 11/07/16 11/07/16 11/08/16 15:00 23:00 07:00 Intake Total 1250 ml 0 ml 240 ml Balance 1250 ml 0 ml 240 ml Problem List Problems Medical Problems: (1) Abdominal pain Status: Acute (2) ESRD (end stage renal disease) Status: Acute Assessment GI angiodysplasiae, likely more than we can see and in more distal small bowel beyond reach of our instruments here. Probably some reflux. "LLQ" pain probably not GI-related. Plan of Care: Continue current Tx, Mgmt Plan of Care Note Octreotide would not be helpful in this setting. Thalidomide has been reported to be of benefit, but carries thrombotic risk (even if she could afford/be compliant or we could obtain). We have all had anecdotal patients where OCP's or estrogens have worked, but not borne out in controlled trials (and still would have the issue of compliance). Would continue po/IV iron and periodic transfusions. ROLA DREW MD Nov 08, 2016 10:15
--- NOTE | 2016-11-08 11:11 | PDOC ---
Renal-Progress Notes Subjective Notes Notes NOTHING NEW History of Present Illness Hx of present illness STABLE Vitals Vitals Vital Signs Date Time Temp Pulse Resp B/P Pulse Ox O2 Delivery O2 Flow Rate FiO2 11/08/16 11:00 98.4 75 16 134/68 98.4 11/08/16 10:47 96 Room Air 11/08/16 06:17 4.0 Weight Weight [ ] I.O. Intake and Output Intake and Output 11/08/16 07:00 Intake Total 1490 ml Balance 1490 ml Intake Oral 240 ml IV Total 350 ml Blood Product IV Normal Saline Flush 900 ml # Bowel Movements 1 Labs Labs Laboratory Tests Test 11/08/16 08:35 White Blood Count 8.9x10^3/uL (4.0-11.0) Red Blood Count 2.17x10^6/uL (3.50-5.40) Hemoglobin 6.4g/dL (12.0-15.5) Hematocrit 19.1% (36.0-47.0) Mean Corpuscular Volume 88fL (79-100) Mean Corpuscular Hemoglobin 30pg (25-35) Mean Corpuscular Hemoglobin Concent 34g/dL (31-37) Red Cell Distribution Width 16.0% (11.5-14.5) Platelet Count 138x10^3/uL (140-400) Micro Micro Microbiology 11/02/16 Blood Culture - Final, Complete NO GROWTH AFTER 5 DAYS 10/30/16 Urine Culture - Final, Complete 10/30/16 Urine Culture Result 1 (CHRISTOPH) - Final, Complete 10/30/16 Urine Culture Result 2 (CHRISTOPH) - Final, Complete Review of Systems Constitutional: yes: no symptom reported Physical Exam General Appearance: no apparent distress Skin: warm Respiratory: bilateral CTA Genitourinary: bladder flat Extremities: pulses present Neurology: alert Musculoskeletal: Stiffness Assessment Assessment IMP ESRD ANEMIA GI BLEED/ANGIODYSPLASIA ABD PAIN NON COMPLIANCE PLAN HD TOMORROW PRBC NEEDED CONT ARANESP WILL FOLLOW YASMIN LEONARDO MD Nov 08, 2016 11:11
[2016-11-08 11:33] LABS: INR 1.2 (0.8-1.1)
[2016-11-08] MEDS: ONDANSETRON PF 4 MG/2 ML VIAL. IV PRN (18:09)
[2016-11-08] MEDS: OLANZAPINE 5 MG TABLET. PO SCH (21:32)
[2016-11-08] MEDS: ATORVASTATIN CALCIUM 20 MG TABLET PO SCH (21:32)
[2016-11-08] MEDS: CALCIUM CARBONATE 500 MG TAB.CHEW PO PRN (21:32)
[2016-11-08] MEDS: ALPRAZOLAM 0.5 MG TABLET. PO PRN (21:39)
[2016-11-09] VITALS (14 sets, daily range): BP systolic 123–189; BP diastolic 56–77
[2016-11-09] MEDS ORDERED: ONDANSETRON PF 4 MG/2 ML VIAL. ONE (02:07)
[2016-11-09] MEDS: ONDANSETRON PF 4 MG/2 ML VIAL. IV PRN ×2 (02:13→23:01)
[2016-11-09] MEDS ORDERED: ACETAMINOPHEN 325 MG TABLET. PO PRN (05:48)
[2016-11-09] MEDS: LEVOTHYROXINE 125 MCG TABLET PO SCH (06:25)
[2016-11-09] MEDS: HYDROCODONE/APAP 7.5/325MG TABLET. PO PRN ×2 (06:30→20:27)
[2016-11-09] MEDS: MORPHINE SULFATE 2 MG/ML DISP.SYRIN. IV PRN ×4 (06:30→23:07)
[2016-11-09] MEDS ORDERED: IV NORMAL SALINE 1000ML BAG 1,000 ML IV PRN ×2 (07:34)
[2016-11-09] MEDS ORDERED: DIALYSIS PATIENT. MC PRN ×2 (07:45)
[2016-11-09] MEDS ORDERED: DIPHENHYDRAMINE 50 MG/ML VIAL IV PRN (07:45)
[2016-11-09] MEDS: SEVELAMER CARBONATE 800 MG TABLET. PO SCH ×3 (08:00→17:42)
[2016-11-09] MEDS: CALCIUM ACETATE 667 MG CAPSULE PO SCH ×3 (08:00→17:42)
[2016-11-09] MEDS ORDERED: AMLODIPINE BESYLATE 10 MG TABLET. ONE (08:31)
[2016-11-09 08:45] LABS: RED BLOOD COUNT 2.01 x10^6/uL (3.50-5.40); RED CELL DISTRIBUTION WIDTH 16.9 % (11.5-14.5); WHITE BLOOD COUNT 7.4 x10^3/uL (4.0-11.0)
[2016-11-09] MEDS: LIDOCAINE (700MG/PATCH) PATCH. TD SCH (09:00)
[2016-11-09] MEDS: HYDRALAZINE 50 MG TABLET PO SCH ×4 (09:00→22:26)
[2016-11-09] MEDS: POLYETHYLENE GLYCOL 3350 17 GM PACKET. PO SCH (09:00)
[2016-11-09 09:05] LABS: HEMOGLOBIN 6.2 g/dL (12.0-15.5)
[2016-11-09 09:07] LABS: HEMATOCRIT 18.5 % (36.0-47.0)
[2016-11-09] MEDS ORDERED: DESMOPRESSIN 4 MCG/ML AMPUL. SQ ONE (09:30)
--- NOTE | 2016-11-09 09:37 | PDOC ---
PROGRESS NOTES Subjective Subjective c/c - Anemia and GI bleed ROS - has GI bleed Objective Objective Vital Signs Date Time Temp Pulse Resp B/P Pulse Ox O2 Delivery O2 Flow Rate FiO2 11/09/16 07:25 18 98 Room Air 11/09/16 06:30 4.0 11/09/16 03:00 97.9 76 154/66 97.9 Intake and Output 11/09/16 07:00 Intake Total 1810 ml Balance 1810 ml Intake Oral 1660 ml IV Total 110 ml Blood Product IV Normal Saline Flush 40 ml # Voids 3 Physical Exam Heart: Normal S1, Normal S2 General: Alert, Oriented X3 Lungs: Clear to auscultation Psych/Mental Status: Mental status NL Assessment Assessment Problems Medical Problems: (1) Abdominal pain Status: Acute (2) ESRD (end stage renal disease) Status: Acute A/P: 1. Acute on chronic anemia with obvious iron deficiency anemia and ongoing gastrointestinal bleed due to angiodysplasia s/p EGD 11/07. CKD, Hep C could also be contributing. - Giving her Venofer 500 mg again today, total 1000 mg bolus given in addition to 200 mg 3x/wk she is on with HD. Also on Aranesp with HD. - Hgb electrophoresis ordered to see if she has any hemoglobinopathies which could also lower her baseline - No evidence of hemolysis - Hb worse at 6.2, plan 2 units PRBC - Normal fibrinogen, and PT 2. GI bleed - Angiodysplasia causing GI bleeding - Ordered Amicar. - Ordered DDAVP management of uremic platelet dysfunction and ongoing GI bleed. 3. End-stage renal disease, on dialysis 4. Untreated hepatitis C 5. Reported Polysubstance abuse. Comment Review of Relevant I have reviewed the following items hemal (where applicable) has been applied. Labs Laboratory Tests Test 11/08/16 08:35 11/08/16 09:50 11/09/16 08:15 White Blood Count 8.9x10^3/uL (4.0-11.0) 7.4x10^3/uL (4.0-11.0) Red Blood Count 2.17x10^6/uL (3.50-5.40) 2.01x10^6/uL (3.50-5.40) Hemoglobin 6.4g/dL (12.0-15.5) 6.2g/dL (12.0-15.5) Hematocrit 19.1% (36.0-47.0) 18.5% (36.0-47.0) Mean Corpuscular Volume 88fL (79-100) 92fL (79-100) Mean Corpuscular Hemoglobin 30pg (25-35) 31pg (25-35) Mean Corpuscular Hemoglobin Concent 34g/dL (31-37) 33g/dL (31-37) Red Cell Distribution Width 16.0% (11.5-14.5) 16.9% (11.5-14.5) Platelet Count 138x10^3/uL (140-400) 135x10^3/uL (140-400) Prothrombin Time 14.0SEC (11.7-14.0) Prothromb Time International Ratio 1.2 (0.8-1.1) Fibrinogen 220mg/dL (200-440) Laboratory Tests Test 11/08/16 09:50 11/09/16 08:15 Prothrombin Time 14.0SEC (11.7-14.0) Prothromb Time International Ratio 1.2 (0.8-1.1) Fibrinogen 220mg/dL (200-440) White Blood Count 7.4x10^3/uL (4.0-11.0) Red Blood Count 2.01x10^6/uL (3.50-5.40) Hemoglobin 6.2g/dL (12.0-15.5) Hematocrit 18.5% (36.0-47.0) Mean Corpuscular Volume 92fL (79-100) Mean Corpuscular Hemoglobin 31pg (25-35) Mean Corpuscular Hemoglobin Concent 33g/dL (31-37) Red Cell Distribution Width 16.9% (11.5-14.5) Platelet Count 135x10^3/uL (140-400) Microbiology 11/02/16 Blood Culture - Final, Complete NO GROWTH AFTER 5 DAYS 10/30/16 Urine Culture - Final, Complete 10/30/16 Urine Culture Result 1 (CHRISTOPH) - Final, Complete 10/30/16 Urine Culture Result 2 (CHRISTOPH) - Final, Complete Medications Current Medications Aspirin (Children'S Aspirin) 324 mg 1X ONCE PO Last administered on 3/20/17at 17:05; Start 10/30/16 at 17:00; Stop 10/30/16 at 17:01; Status DC Alprazolam (Xanax) 0.5 mg PRN Q8HRS PRN PO ANXIETY / AGITATION Last administered on 11/06/16 21:19; Start 10/30/16 at 19:30; Stop 11/07/16 at 13:38 ; Status DC Amlodipine Besylate (Norvasc) 10 mg DAILY PO Last administered on 11/08/16 07: 58; Start 10/31/16 at 09:00 Calcium Acetate (Phoslo) 667 mg TIDWMEALS PO Last administered on 10/31/16 08: 43; Start 10/31/16 at 08:00; Stop 10/31/16 at 10:52; Status DC Carvedilol (Coreg) 12.5 mg BIDWMEALS PO Last administered on 11/08/16 17:01; Start 10/31/16 at 08:00; Stop 11/09/16 at 05:48; Status DC Divalproex Sodium (Depakote) 250 mg TID PO Last administered on 11/08/16 21:33 ; Start 10/30/16 at 21:00 Gabapentin (Neurontin) 300 mg DAILY PO Last administered on 11/08/16 07:57; Start 10/31/16 at 09:00 Hydralazine HCl (Apresoline) 50 mg QID PO Last administered on 11/08/16 21:33 ; Start 10/30/16 at 21:00 Lamotrigine (LaMICtal) 25 mg DAILY PO Last administered on 11/08/16 07:58; Start 10/31/16 at 09:00 Levothyroxine Sodium (Synthroid) 125 mcg DAILY07 PO Last administered on 06:25; Start 10/31/16 at 07:00 Nicotine (Nicoderm Cq 21mg) 1 patch DAILY TD Last administered on 11/08/16 07: 51; Start 10/31/16 at 09:00 Atorvastatin Calcium (Lipitor) 20 mg QHS PO Last administered on 11/08/16 21: 32; Start 10/30/16 at 22:00 Olanzapine (Zyprexa) 10 mg QHS PO Last administered on 11/08/16 21:32; Start 10/30/16 at 21:30 Non-Formulary Medication 1 tab PRN BID PRN PO Severe pain; Start 10/30/16 at 19 :30; Stop 10/30/16 at 19:34; Status DC Risperidone (Risperdal) 4 mg DAILY PO Last administered on 11/08/16 07:52; Start 10/31/16 at 09:00 Sertraline HCl (Zoloft) 200 mg DAILY PO Last administered on 11/08/16 07:52; Start 10/31/16 at 09:00 Sevelamer Carbonate (Renvela) 800 mg TIDWMEALS PO Last administered on 17:01; Start 10/31/16 at 08:00 Ondansetron HCl (Zofran) 4 mg PRN Q6HRS PRN IV NAUSEA/VOMITING Last administered on 11/09/16 02:13; Start 10/30/16 at 19:30; Stop 11/09/16 at 05:48 ; Status DC Acetaminophen/ Hydrocodone Bitart (Lortab 5/325) 1 tab PRN Q4HRS PRN PO MILD PAIN Last administered on 11/05/16 09:17; Start 10/30/16 at 19:30; Stop at 09:29; Status DC Acetaminophen (Tylenol) 650 mg PRN Q6HRS PRN PO MILD PAIN / TEMP; Start at 19:30; Status UNV Heparin Sodium (Porcine) 5,000 unit Q8HRS SQ Last administered on 11/02/16 14: 00; Start 10/30/16 at 22:00; Stop 11/04/16 at 08:43; Status DC Acetaminophen (Tylenol) 650 mg PRN Q6HRS PRN PO FEVER Last administered on 11/02 18:08; Start 10/30/16 at 19:45; Stop 11/09/16 at 05:48; Status DC Hydralazine HCl (Apresoline) 10 mg PRN Q5MIN PRN IVP ELEVATED BP, SEE COMMENTS ; Start 10/30/16 at 19:45 Pantoprazole Sodium (Protonix) 40 mg DAILYAC PO Last administered on 11/08/16 07:57; Start 10/31/16 at 07:30 Ferrous Sulfate 300 mg BIDWMEALS PO Last administered on 11/03/16 08:36; Start 10/31/16 at 10:00; Stop 11/03/16 at 10:32; Status DC Polyethylene Glycol 17 gm 17 gm DAILY PO Last administered on 11/05/16 08:31; Start 10/31/16 at 12:00 Magnesium Sulfate/ Dextrose 50 ml @ 25 mls/hr PRN DAILY PRN IV for Mag < 1.7 on am labs; Start 10/31/16 at 10:45 Iron Sucrose/ Sodium Chloride (Venofer/Iv Sodium Chloride 0.9% 100ml) 110 ml @ 55 mls/hr 3X/WEEK IV Last administered on 11/06/16 10:04; Start 11/01/16 at 09 :00; Stop 11/10/16 at 10:59 Polyethylene Glycol (miraLAX PACKET) 17 gm PRN DAILY PRN PO CONSTIPATION; Start 10/31/16 at 10:45 Calcium Acetate 2001 mg 2,001 mg TIDWMEALS PO Last administered on 11/08/16 17 :01; Start 10/31/16 at 12:00 Sodium Chloride 1,000 ml @ 1,000 mls/hr Q1H PRN IV hypotension; Start 10/31/16 at 16:46; Stop 10/31/16 at 22:45; Status DC Albumin Human (Albuminar) 200 ml @ 200 mls/hr 1X PRN PRN IV Hypotension; Start 10/31/16 at 17:00; Stop 10/31/16 at 22:59; Status DC Acetaminophen (Tylenol) 500 mg 1X PRN PRN PO MILD PAIN / TEMP; Start 10/31/16 at 17:00; Stop 11/01/16 at 16:59; Status DC Diphenhydramine HCl (Benadryl) 25 mg 1X PRN PRN IV ITCHING; Start 10/31/16 at 17:00; Stop 11/01/16 at 16:59; Status DC Diphenhydramine HCl 25 mg 25 mg 1X PRN PRN IV ITCHING; Start 10/31/16 at 17:00 ; Stop 11/01/16 at 16:59; Status DC Sodium Chloride (Iv Sodium Chloride 0.9% 1000ml Bag) 1,000 ml @ 400 mls/hr Q2H30M PRN IV PATENCY; Start 10/31/16 at 16:46; Stop 11/01/16 at 04:45; Status DC Info (PHARMACY MONITORING -- do not chart) 1 each PRN DAILY PRN MC SEE COMMENTS ; Start 10/31/16 at 17:00; Stop 11/04/16 at 13:14; Status DC Docusate Sodium (Colace) 100 mg DAILY PO Last administered on 11/05/16 08:32; Start 11/01/16 at 09:00; Stop 11/06/16 at 14:07; Status DC Fentanyl Citrate 50 mcg 50 mcg 1X ONCE IV Last administered on 11/01/16 11:14 ; Start 11/01/16 at 11:15; Stop 11/01/16 at 11:16; Status DC Sodium Chloride (Iv Sodium Chloride 0.9% 1000ml Bag) 1,000 ml @ 1,000 mls/hr Q1H PRN IV hypotension; Start 11/02/16 at 07:39; Stop 11/02/16 at 13:38; Status DC Acetaminophen (Tylenol) 500 mg 1X PRN PRN PO MILD PAIN / TEMP; Start 11/02/16 at 07:45; Stop 11/03/16 at 07:44; Status DC Diphenhydramine HCl (Benadryl) 25 mg 1X PRN PRN IV ITCHING Last administered on 11/02/16 15:55; Start 11/02/16 at 07:45; Stop 11/03/16 at 07:44; Status DC Diphenhydramine HCl (Benadryl) 25 mg 1X PRN PRN IV ITCHING Last administered on 11/02/16 08:41; Start 11/02/16 at 07:45; Stop 11/03/16 at 07:44; Status DC Labetalol HCl 10 mg 10 mg PRN Q1HR PRN IVP SBP > 180; Start 11/02/16 at 07:45; Stop 11/03/16 at 07:44; Status DC Sodium Chloride (Iv Sodium Chloride 0.9% 1000ml Bag) 1,000 ml @ 400 mls/hr Q2H30M PRN IV PATENCY; Start 11/02/16 at 07:39; Stop 11/02/16 at 19:38; Status DC Info (PHARMACY MONITORING -- do not chart) 1 each PRN DAILY PRN MC SEE COMMENTS ; Start 11/02/16 at 07:45; Stop 11/02/16 at 07:51; Status DC Calcium Carbonate/ Glycine (Tums) 500 mg PRN AFTMEALHC PRN PO INDIGESTION Last administered on 11/08/16 21:32; Start 11/02/16 at 15:15 Lidocaine (Lidoderm) 1 patch DAILY TD Last administered on 11/06/16 09:39; Start 11/02/16 at 15:45 Vancomycin HCl 1 each 1 each PRN DAILY PRN MC SEE COMMENTS Last administered on 11/04/16 14:19; Start 11/02/16 at 18:30; Stop 11/06/16 at 11:31; Status DC Piperacillin Sod/ Tazobactam Sod 2.25 gm/Sodium Chloride 50 ml @ 100 mls/hr Q8HRS IV Last administered on 11/06/16 05:54; Start 11/02/16 at 18:30; Stop at 11:31; Status DC Vancomycin HCl/ Sodium Chloride (Iv Sodium Chloride 0.9% 500ml Bag) 500 ml @ 250 mls/hr 1X ONCE IV Last administered on 11/02/16 21:12; Start 11/02/16 at 18:30; Stop 11/02/16 at 20:29; Status DC Vancomycin HCl 1 each 1X ONCE MC Last administered on 11/04/16 06:00; Start 11/04/16 at 06:00; Stop 11/04/16 at 06:01; Status DC Diphenhydramine HCl (Benadryl) 25 mg PRN Q6HRS PRN PO ITCHING Last administered on 11/04/16 22:08; Start 11/03/16 at 02:00 Darbepoetin Sourav 60 mcg 60 mcg WEEKLYHS SQ Last administered on 11/03/16 21:42 ; Start 11/03/16 at 21:00 Sodium Chloride 1,000 ml @ 1,000 mls/hr Q1H PRN IV hypotension; Start 11/04/16 at 06:23; Stop 11/04/16 at 12:22; Status DC Albumin Human (Albuminar) 200 ml @ 200 mls/hr 1X PRN PRN IV Hypotension; Start 11/04/16 at 06:30; Stop 11/04/16 at 12:29; Status DC Acetaminophen (Tylenol) 500 mg 1X PRN PRN PO MILD PAIN / TEMP; Start 11/04/16 at 06:30; Stop 11/05/16 at 06:29; Status DC Diphenhydramine HCl (Benadryl) 25 mg 1X PRN PRN IV ITCHING Last administered on 11/04/16 06:57; Start 11/04/16 at 06:30; Stop 11/05/16 at 06:29; Status DC Diphenhydramine HCl (Benadryl) 25 mg 1X PRN PRN IV ITCHING; Start 11/04/16 at 06:30; Stop 11/05/16 at 06:29; Status DC Labetalol HCl (Normodyne) 10 mg PRN Q1HR PRN IVP SBP > 180; Start 11/04/16 at 06:30; Stop 11/05/16 at 06:29; Status DC Clonidine HCl (Catapres) 0.1 mg 1X PRN PRN PO SBP > 180; Start 11/04/16 at 06: 30; Stop 11/05/16 at 06:29; Status DC Info 1 each 1 each PRN DAILY PRN MC SEE COMMENTS; Start 11/04/16 at 06:30 Vancomycin HCl/ Sodium Chloride (Iv Sodium Chloride 0.9% 100ml) 100 ml @ 100 mls/hr QTUTHSA IV Last administered on 11/04/16 16:08; Start 11/04/16 at 16:00 ; Stop 11/06/16 at 11:31; Status DC Acetaminophen/ Hydrocodone Bitart (Lortab 7.5/325) 1 tab PRN Q6HRS PRN PO PAIN Last administered on 11/09/16 06:30; Start 11/05/16 at 09:30 Morphine Sulfate 1 mg PRN Q4HRS PRN IV PAIN Last administered on 11/09/16 06: 30; Start 11/05/16 at 09:30 Docusate Sodium (Colace) 100 mg DAILY PO Last administered on 11/08/16 07:59; Start 11/07/16 at 09:00 Alprazolam 0.5 mg 0.5 mg STK-MED ONCE .ROUTE Last administered on 3/28/17at 20: 31; Start 11/06/16 at 20:33; Stop 11/06/16 at 20:34; Status DC Sodium Chloride 1,000 ml @ 1,000 mls/hr Q1H PRN IV hypotension; Start 11/07/16 at 08:23; Stop 11/07/16 at 14:22; Status DC Sodium Chloride (Iv Sodium Chloride 0.9% 1000ml Bag) 1,000 ml @ 400 mls/hr Q2H30M PRN IV PATENCY; Start 11/07/16 at 08:23; Stop 11/07/16 at 20:22; Status DC Info 1 each 1 each PRN DAILY PRN MC SEE COMMENTS; Start 11/07/16 at 08:30; Stop 11/07/16 at 13:47; Status DC Iron Sucrose 500 mg/Sodium Chloride 275 ml @ 78.571 mls/ hr 1X ONCE IV ; Start 11/07/16 at 09:00; Stop 11/07/16 at 12:29; Status DC Propofol (Diprivan) 20 ml @ As Directed STK-MED ONCE IV ; Start 11/07/16 at 13: 22; Stop 11/07/16 at 13:23; Status DC Alprazolam 0.5 mg 0.5 mg PRN Q8HRS PRN PO ANXIETY / AGITATION Last administered on 11/08/16 21:39; Start 11/07/16 at 13:45 Iron Sucrose/ Sodium Chloride (Venofer/Iv Sodium Chloride 0.9% 250ml) 275 ml @ 78.571 mls/ hr 1X ONCE IV Last administered on 11/08/16 06:30; Start at 06:30; Stop 11/08/16 at 09:59; Status DC Acetaminophen (Tylenol) 650 mg 1X PRN PRN PO PRN prior to blood transfusion; Start 11/08/16 at 09:15; Stop 11/09/16 at 09:14; Status DC Ondansetron HCl (Zofran) 4 mg STK-MED ONCE .ROUTE ; Start 11/09/16 at 02:07; Stop 11/09/16 at 02:08; Status DC Carvedilol (Coreg) 12.5 mg BIDWMEALS PO ; Start 11/09/16 at 08:00 Ondansetron HCl (Zofran) 4 mg PRN Q6HRS PRN IV NAUSEA/VOMITING; Start 11/09/16 at 05:48 Acetaminophen 650 mg 650 mg PRN Q6HRS PRN PO FEVER; Start 11/09/16 at 05:48 Sodium Chloride (Iv Sodium Chloride 0.9% 1000ml Bag) 1,000 ml @ 1,000 mls/hr Q1H PRN IV hypotension; Start 11/09/16 at 07:34; Stop 11/09/16 at 13:33 Diphenhydramine HCl 25 mg 25 mg 1X PRN PRN IV ITCHING; Start 11/09/16 at 07:45 ; Stop 11/10/16 at 07:44 Sodium Chloride (Iv Sodium Chloride 0.9% 1000ml Bag) 1,000 ml @ 400 mls/hr Q2H30M PRN IV PATENCY; Start 11/09/16 at 07:34; Stop 11/09/16 at 19:33 Info (PHARMACY MONITORING -- do not chart) 1 each PRN DAILY PRN MC SEE COMMENTS ; Start 11/09/16 at 07:45; Status UNV Info (PHARMACY MONITORING -- do not chart) 1 each PRN DAILY PRN MC SEE COMMENTS ; Start 11/09/16 at 07:45; Status UNV Amlodipine Besylate (Norvasc) 10 mg STK-MED ONCE .ROUTE ; Start 11/09/16 at 08: 31; Stop 11/09/16 at 08:32; Status DC Aminocaproic Acid (Amicar) 1,000 mg Q4HRS PO ; Start 11/09/16 at 12:00 Desmopressin Acetate (Ddavp) 20 mcg ONCE ONCE SQ ; Start 11/09/16 at 09:30; Stop 11/09/16 at 09:31; Status UNV Active Scripts Active Percocet 5-325 Mg Tablet (Oxycodone/Acetaminophen) 1 Each Tablet 1 Tab PO QID PRN Alprazolam 0.5 Mg Tablet 0.5 Mg PO Q8HRS PRN Oxycodone Hcl 10 Mg Tablet 1 Tab PO PRN BID PRN Olanzapine Odt (Olanzapine) 10 Mg Tab.rapdis 10 Mg PO QHS Lamotrigine 25 Mg Tablet 25 Mg PO DAILY 30 Days Zoloft (Sertraline Hcl) 100 Mg Tablet 200 Mg PO DAILY Risperidone 4 Mg Tablet 4 Mg PO DAILY Zofran Odt (Ondansetron) 4 Mg Tab.rapdis 1 Tab SL Q8HRS Reported NICODERM CQ 21mg (Nicotine) 1 Each Patch.td24 1 Patch TP DAILY Depakote (Divalproex Sodium) 250 Mg Tablet.dr 250 Mg PO TID Amlodipine Besylate 10 Mg Tablet 10 Mg PO DAILY Hydralazine Hcl 50 Mg Tablet 50 Mg PO QID Renagel (Sevelamer Hcl) 800 Mg Tablet 800 Mg PO TIDWMEALS Simvastatin 40 Mg Tablet 40 Mg PO HS Levothyroxine Sodium 125 Mcg Tablet 125 Mcg PO DAILYAC Gabapentin 300 Mg Capsule 300 Mg PO DAILY Phoslo (Calcium Acetate) 667 Mg Capsule 667 Mg PO TIDWMEALS Carvedilol 12.5 Mg Tablet 12.5 Mg PO BIDWMEALS Vitals/I & O Vital Sign - Last 24 Hours 11/08/16 11/08/16 11/08/16 11/08/16 10:47 11:00 11:15 12:12 Temp 98.4 98.4 98.5 98.6 98.4 98.4 98.5 98.6 Pulse 75 75 69 72 Resp 18 16 14 18 B/P 134/68 134/68 125/64 137/67 Pulse Ox 96 O2 Delivery Room Air 11/08/16 11/08/16 11/08/16 11/08/16 13:00 13:00 13:13 14:30 Temp 98.3 99.4 98.3 99.4 Pulse 72 75 74 Resp 12 18 B/P 137/67 144/72 133/65 Pulse Ox 96 95 O2 Delivery Room Air Room Air 11/08/16 11/08/16 11/08/16 11/08/16 14:31 14:59 15:59 17:01 Temp 99.4 99.4 Pulse 74 74 Resp 18 B/P 133/65 133/65 Pulse Ox 96 O2 Delivery Room Air O2 Flow Rate 4.0 4.0 11/08/16 11/08/16 11/08/16 11/08/16 17:01 17:02 19:00 20:03 Temp 98.5 98.5 Pulse 74 72 Resp 16 B/P 133/65 120/59 Pulse Ox 96 95 O2 Delivery Room Air Room Air Room Air O2 Flow Rate 4.0 11/08/16 11/08/16 11/08/1629/17 21:33 21:33 21:34 22:09 Pulse 72 Resp 18 18 B/P 120/59 Pulse Ox 95 O2 Delivery Room Air Room Air O2 Flow Rate 4.0 11/08/16 11/09/16 11/09/16 11/09/16 22:53 03:00 06:30 06:30 Temp 98.1 97.9 98.1 97.9 Pulse 73 76 Resp 20 20 18 18 B/P 163/65 154/66 Pulse Ox 95 98 98 98 O2 Delivery Room Air Room Air Room Air Room Air O2 Flow Rate 4.0 4.0 11/09/16 11/09/16 07:25 07:25 Resp 18 18 Pulse Ox 98 98 O2 Delivery Room Air Room Air Intake and Output 11/08/16 11/08/16 11/09/16 15:00 23:00 07:00 Intake Total 870 ml 300 ml 640 ml Balance 870 ml 300 ml 640 ml ESTRELLITA MACIAS MD Nov 09, 2016 09:37
--- NOTE | 2016-11-09 10:33 | PDOC ---
PROGRESS NOTES Chief Complaint Chief Complaint anemia, recurrent 1. Abdominal pain, acute on chronic resolved. 2. ESRD on HD 3. Type 2 diabetes 4. High cholesterol 5. Hypertension 6. Hypothyroidism 7. Hepatitis C untreated. 8. h/o multisubstance Abuse 9. Chronic back and hip pain 10. Acute on chronic anemia, with ESRD, GI angiodysplasia, possible platelet dysfunction due to uremia. 11. Non compliance 12. H/O Schizophrenia, suicidal idea 13. Homelessness Plan Drop in hemoglobin despite blood transfusion, s/p 8 units of PRBC Oncology following, Started on Amicar and DDAVP, Planning for 2 units of PRBC. HD per nephrology IV Venofer DC planning based on subspecialty input, not ready for DC due to active drop in hemoglobin and ongoing treatment. History of Present Illness History of Present Illness per pt she had blood bowel movement today no abdominal pain Vitals Vitals Vital Signs Date Time Temp Pulse Resp B/P Pulse Ox O2 Delivery O2 Flow Rate FiO2 11/09/16 07:25 18 98 Room Air 11/09/16 06:30 4.0 11/09/16 03:00 97.9 76 154/66 97.9 Physical Exam General: Alert, Oriented X3 Heart: Normal S1, Normal S2 Lungs: Clear Abdomen: Normal bowel sounds, Soft, No tenderness, No hepatosplenomegaly, No masses Extremities: No edema Skin: No rashes, No significant lesion Labs LABS Laboratory Tests Test 11/09/16 08:15 White Blood Count 7.4x10^3/uL (4.0-11.0) Red Blood Count 2.01x10^6/uL (3.50-5.40) Hemoglobin 6.2g/dL (12.0-15.5) Hematocrit 18.5% (36.0-47.0) Mean Corpuscular Volume 92fL (79-100) Mean Corpuscular Hemoglobin 31pg (25-35) Mean Corpuscular Hemoglobin Concent 33g/dL (31-37) Red Cell Distribution Width 16.9% (11.5-14.5) Platelet Count 135x10^3/uL (140-400) Reticulocyte Count (auto) 5.9% (0.5-2.5) Assessment and Plan Assessmemt and Plan Problems Medical Problems: (1) Abdominal pain Status: Acute (2) ESRD (end stage renal disease) Status: Acute Problems: Comment Review of Relevant I have reviewed the following items hemal (where applicable) has been applied. Labs Laboratory Tests Test 11/08/16 08:35 11/08/16 09:50 11/09/16 08:15 White Blood Count 8.9x10^3/uL (4.0-11.0) 7.4x10^3/uL (4.0-11.0) Red Blood Count 2.17x10^6/uL (3.50-5.40) 2.01x10^6/uL (3.50-5.40) Hemoglobin 6.4g/dL (12.0-15.5) 6.2g/dL (12.0-15.5) Hematocrit 19.1% (36.0-47.0) 18.5% (36.0-47.0) Mean Corpuscular Volume 88fL (79-100) 92fL (79-100) Mean Corpuscular Hemoglobin 30pg (25-35) 31pg (25-35) Mean Corpuscular Hemoglobin Concent 34g/dL (31-37) 33g/dL (31-37) Red Cell Distribution Width 16.0% (11.5-14.5) 16.9% (11.5-14.5) Platelet Count 138x10^3/uL (140-400) 135x10^3/uL (140-400) Prothrombin Time 14.0SEC (11.7-14.0) Prothromb Time International Ratio 1.2 (0.8-1.1) Fibrinogen 220mg/dL (200-440) Reticulocyte Count (auto) 5.9% (0.5-2.5) Laboratory Tests Test 11/09/16 08:15 White Blood Count 7.4x10^3/uL (4.0-11.0) Red Blood Count 2.01x10^6/uL (3.50-5.40) Hemoglobin 6.2g/dL (12.0-15.5) Hematocrit 18.5% (36.0-47.0) Mean Corpuscular Volume 92fL (79-100) Mean Corpuscular Hemoglobin 31pg (25-35) Mean Corpuscular Hemoglobin Concent 33g/dL (31-37) Red Cell Distribution Width 16.9% (11.5-14.5) Platelet Count 135x10^3/uL (140-400) Reticulocyte Count (auto) 5.9% (0.5-2.5) Microbiology 11/02/16 Blood Culture - Final, Complete NO GROWTH AFTER 5 DAYS 10/30/16 Urine Culture - Final, Complete 10/30/16 Urine Culture Result 1 (CHRISTOPH) - Final, Complete 10/30/16 Urine Culture Result 2 (CHRISTOPH) - Final, Complete Medications Current Medications Aspirin (Children'S Aspirin) 324 mg 1X ONCE PO Last administered on 10/30/16 17:05; Start 10/30/16 at 17:00; Stop 10/30/16 at 17:01; Status DC Alprazolam (Xanax) 0.5 mg PRN Q8HRS PRN PO ANXIETY / AGITATION Last administered on 11/06/16 21:19; Start 10/30/16 at 19:30; Stop 11/07/16 at 13:38 ; Status DC Amlodipine Besylate (Norvasc) 10 mg DAILY PO Last administered on 11/08/16 07: 58; Start 10/31/16 at 09:00 Calcium Acetate (Phoslo) 667 mg TIDWMEALS PO Last administered on 10/31/16 08: 43; Start 10/31/16 at 08:00; Stop 10/31/16 at 10:52; Status DC Carvedilol (Coreg) 12.5 mg BIDWMEALS PO Last administered on 11/08/16 17:01; Start 10/31/16 at 08:00; Stop 11/09/16 at 05:48; Status DC Divalproex Sodium (Depakote) 250 mg TID PO Last administered on 11/08/16 21:33 ; Start 10/30/16 at 21:00 Gabapentin (Neurontin) 300 mg DAILY PO Last administered on 11/08/16 07:57; Start 10/31/16 at 09:00 Hydralazine HCl (Apresoline) 50 mg QID PO Last administered on 11/08/16 21:33 ; Start 10/30/16 at 21:00 Lamotrigine (LaMICtal) 25 mg DAILY PO Last administered on 11/08/16 07:58; Start 10/31/16 at 09:00 Levothyroxine Sodium (Synthroid) 125 mcg DAILY07 PO Last administered on 06:25; Start 10/31/16 at 07:00 Nicotine (Nicoderm Cq 21mg) 1 patch DAILY TD Last administered on 11/08/16 07: 51; Start 10/31/16 at 09:00 Atorvastatin Calcium (Lipitor) 20 mg QHS PO Last administered on 11/08/16 21: 32; Start 10/30/16 at 22:00 Olanzapine (Zyprexa) 10 mg QHS PO Last administered on 11/08/16 21:32; Start 10/30/16 at 21:30 Non-Formulary Medication 1 tab PRN BID PRN PO Severe pain; Start 10/30/16 at 19 :30; Stop 10/30/16 at 19:34; Status DC Risperidone (Risperdal) 4 mg DAILY PO Last administered on 11/08/16 07:52; Start 10/31/16 at 09:00 Sertraline HCl (Zoloft) 200 mg DAILY PO Last administered on 11/08/16 07:52; Start 10/31/16 at 09:00 Sevelamer Carbonate (Renvela) 800 mg TIDWMEALS PO Last administered on 17:01; Start 10/31/16 at 08:00 Ondansetron HCl (Zofran) 4 mg PRN Q6HRS PRN IV NAUSEA/VOMITING Last administered on 11/09/16 02:13; Start 10/30/16 at 19:30; Stop 11/09/16 at 05:48 ; Status DC Acetaminophen/ Hydrocodone Bitart (Lortab 5/325) 1 tab PRN Q4HRS PRN PO MILD PAIN Last administered on 11/05/16 09:17; Start 10/30/16 at 19:30; Stop at 09:29; Status DC Acetaminophen (Tylenol) 650 mg PRN Q6HRS PRN PO MILD PAIN / TEMP; Start at 19:30; Status UNV Heparin Sodium (Porcine) 5,000 unit Q8HRS SQ Last administered on 11/02/16 14: 00; Start 10/30/16 at 22:00; Stop 11/04/16 at 08:43; Status DC Acetaminophen (Tylenol) 650 mg PRN Q6HRS PRN PO FEVER Last administered on 11/02 18:08; Start 10/30/16 at 19:45; Stop 11/09/16 at 05:48; Status DC Hydralazine HCl (Apresoline) 10 mg PRN Q5MIN PRN IVP ELEVATED BP, SEE COMMENTS ; Start 10/30/16 at 19:45 Pantoprazole Sodium (Protonix) 40 mg DAILYAC PO Last administered on 11/08/16 07:57; Start 10/31/16 at 07:30 Ferrous Sulfate 300 mg BIDWMEALS PO Last administered on 11/03/16 08:36; Start 10/31/16 at 10:00; Stop 11/03/16 at 10:32; Status DC Polyethylene Glycol 17 gm 17 gm DAILY PO Last administered on 11/05/16 08:31; Start 10/31/16 at 12:00 Magnesium Sulfate/ Dextrose 50 ml @ 25 mls/hr PRN DAILY PRN IV for Mag < 1.7 on am labs; Start 10/31/16 at 10:45 Iron Sucrose/ Sodium Chloride (Venofer/Iv Sodium Chloride 0.9% 100ml) 110 ml @ 55 mls/hr 3X/WEEK IV Last administered on 11/06/16 10:04; Start 11/01/16 at 09 :00; Stop 11/10/16 at 10:59 Polyethylene Glycol (miraLAX PACKET) 17 gm PRN DAILY PRN PO CONSTIPATION; Start 10/31/16 at 10:45 Calcium Acetate 2001 mg 2,001 mg TIDWMEALS PO Last administered on 11/08/16 17 :01; Start 10/31/16 at 12:00 Sodium Chloride 1,000 ml @ 1,000 mls/hr Q1H PRN IV hypotension; Start 10/31/16 at 16:46; Stop 10/31/16 at 22:45; Status DC Albumin Human (Albuminar) 200 ml @ 200 mls/hr 1X PRN PRN IV Hypotension; Start 10/31/16 at 17:00; Stop 10/31/16 at 22:59; Status DC Acetaminophen (Tylenol) 500 mg 1X PRN PRN PO MILD PAIN / TEMP; Start 10/31/16 at 17:00; Stop 11/01/16 at 16:59; Status DC Diphenhydramine HCl (Benadryl) 25 mg 1X PRN PRN IV ITCHING; Start 10/31/16 at 17:00; Stop 11/01/16 at 16:59; Status DC Diphenhydramine HCl 25 mg 25 mg 1X PRN PRN IV ITCHING; Start 10/31/16 at 17:00 ; Stop 11/01/16 at 16:59; Status DC Sodium Chloride (Iv Sodium Chloride 0.9% 1000ml Bag) 1,000 ml @ 400 mls/hr Q2H30M PRN IV PATENCY; Start 10/31/16 at 16:46; Stop 11/01/16 at 04:45; Status DC Info (PHARMACY MONITORING -- do not chart) 1 each PRN DAILY PRN MC SEE COMMENTS ; Start 10/31/16 at 17:00; Stop 11/04/16 at 13:14; Status DC Docusate Sodium (Colace) 100 mg DAILY PO Last administered on 11/05/16 08:32; Start 11/01/16 at 09:00; Stop 11/06/16 at 14:07; Status DC Fentanyl Citrate 50 mcg 50 mcg 1X ONCE IV Last administered on 11/01/16 11:14 ; Start 11/01/16 at 11:15; Stop 11/01/16 at 11:16; Status DC Sodium Chloride (Iv Sodium Chloride 0.9% 1000ml Bag) 1,000 ml @ 1,000 mls/hr Q1H PRN IV hypotension; Start 11/02/16 at 07:39; Stop 11/02/16 at 13:38; Status DC Acetaminophen (Tylenol) 500 mg 1X PRN PRN PO MILD PAIN / TEMP; Start 11/02/16 at 07:45; Stop 11/03/16 at 07:44; Status DC Diphenhydramine HCl (Benadryl) 25 mg 1X PRN PRN IV ITCHING Last administered on 11/02/16 15:55; Start 11/02/16 at 07:45; Stop 11/03/16 at 07:44; Status DC Diphenhydramine HCl (Benadryl) 25 mg 1X PRN PRN IV ITCHING Last administered on 11/02/16 08:41; Start 11/02/16 at 07:45; Stop 11/03/16 at 07:44; Status DC Labetalol HCl 10 mg 10 mg PRN Q1HR PRN IVP SBP > 180; Start 11/02/16 at 07:45; Stop 11/03/16 at 07:44; Status DC Sodium Chloride (Iv Sodium Chloride 0.9% 1000ml Bag) 1,000 ml @ 400 mls/hr Q2H30M PRN IV PATENCY; Start 11/02/16 at 07:39; Stop 11/02/16 at 19:38; Status DC Info (PHARMACY MONITORING -- do not chart) 1 each PRN DAILY PRN MC SEE COMMENTS ; Start 11/02/16 at 07:45; Stop 11/02/16 at 07:51; Status DC Calcium Carbonate/ Glycine (Tums) 500 mg PRN AFTMEALHC PRN PO INDIGESTION Last administered on 11/08/16 21:32; Start 11/02/16 at 15:15 Lidocaine (Lidoderm) 1 patch DAILY TD Last administered on 11/06/16 09:39; Start 11/02/16 at 15:45 Vancomycin HCl 1 each 1 each PRN DAILY PRN MC SEE COMMENTS Last administered on 11/04/16 14:19; Start 11/02/16 at 18:30; Stop 11/06/16 at 11:31; Status DC Piperacillin Sod/ Tazobactam Sod 2.25 gm/Sodium Chloride 50 ml @ 100 mls/hr Q8HRS IV Last administered on 11/06/16 05:54; Start 11/02/16 at 18:30; Stop at 11:31; Status DC Vancomycin HCl/ Sodium Chloride (Iv Sodium Chloride 0.9% 500ml Bag) 500 ml @ 250 mls/hr 1X ONCE IV Last administered on 11/02/16 21:12; Start 11/02/16 at 18:30; Stop 11/02/16 at 20:29; Status DC Vancomycin HCl 1 each 1X ONCE MC Last administered on 11/04/16 06:00; Start 11/04/16 at 06:00; Stop 11/04/16 at 06:01; Status DC Diphenhydramine HCl (Benadryl) 25 mg PRN Q6HRS PRN PO ITCHING Last administered on 11/04/16 22:08; Start 11/03/16 at 02:00 Darbepoetin Sourav 60 mcg 60 mcg WEEKLYHS SQ Last administered on 11/03/16 21:42 ; Start 11/03/16 at 21:00 Sodium Chloride 1,000 ml @ 1,000 mls/hr Q1H PRN IV hypotension; Start 11/04/16 at 06:23; Stop 11/04/16 at 12:22; Status DC Albumin Human (Albuminar) 200 ml @ 200 mls/hr 1X PRN PRN IV Hypotension; Start 11/04/16 at 06:30; Stop 11/04/16 at 12:29; Status DC Acetaminophen (Tylenol) 500 mg 1X PRN PRN PO MILD PAIN / TEMP; Start 11/04/16 at 06:30; Stop 11/05/16 at 06:29; Status DC Diphenhydramine HCl (Benadryl) 25 mg 1X PRN PRN IV ITCHING Last administered on 11/04/16 06:57; Start 11/04/16 at 06:30; Stop 11/05/16 at 06:29; Status DC Diphenhydramine HCl (Benadryl) 25 mg 1X PRN PRN IV ITCHING; Start 11/04/16 at 06:30; Stop 11/05/16 at 06:29; Status DC Labetalol HCl (Normodyne) 10 mg PRN Q1HR PRN IVP SBP > 180; Start 11/04/16 at 06:30; Stop 11/05/16 at 06:29; Status DC Clonidine HCl (Catapres) 0.1 mg 1X PRN PRN PO SBP > 180; Start 11/04/16 at 06: 30; Stop 11/05/16 at 06:29; Status DC Info 1 each 1 each PRN DAILY PRN MC SEE COMMENTS; Start 11/04/16 at 06:30 Vancomycin HCl/ Sodium Chloride (Iv Sodium Chloride 0.9% 100ml) 100 ml @ 100 mls/hr QTUTHSA IV Last administered on 11/04/16 16:08; Start 11/04/16 at 16:00 ; Stop 11/06/16 at 11:31; Status DC Acetaminophen/ Hydrocodone Bitart (Lortab 7.5/325) 1 tab PRN Q6HRS PRN PO PAIN Last administered on 11/09/16 06:30; Start 11/05/16 at 09:30 Morphine Sulfate 1 mg PRN Q4HRS PRN IV PAIN Last administered on 11/09/16 06: 30; Start 11/05/16 at 09:30 Docusate Sodium (Colace) 100 mg DAILY PO Last administered on 11/08/16 07:59; Start 11/07/16 at 09:00 Alprazolam 0.5 mg 0.5 mg STK-MED ONCE .ROUTE Last administered on 11/07/16 20: 31; Start 11/06/16 at 20:33; Stop 11/06/16 at 20:34; Status DC Sodium Chloride 1,000 ml @ 1,000 mls/hr Q1H PRN IV hypotension; Start 11/07/16 at 08:23; Stop 11/07/16 at 14:22; Status DC Sodium Chloride (Iv Sodium Chloride 0.9% 1000ml Bag) 1,000 ml @ 400 mls/hr Q2H30M PRN IV PATENCY; Start 11/07/16 at 08:23; Stop 11/07/16 at 20:22; Status DC Info 1 each 1 each PRN DAILY PRN MC SEE COMMENTS; Start 11/07/16 at 08:30; Stop 11/07/16 at 13:47; Status DC Iron Sucrose 500 mg/Sodium Chloride 275 ml @ 78.571 mls/ hr 1X ONCE IV ; Start 11/07/16 at 09:00; Stop 11/07/16 at 12:29; Status DC Propofol (Diprivan) 20 ml @ As Directed STK-MED ONCE IV ; Start 11/07/16 at 13: 22; Stop 11/07/16 at 13:23; Status DC Alprazolam 0.5 mg 0.5 mg PRN Q8HRS PRN PO ANXIETY / AGITATION Last administered on 11/08/16 21:39; Start 11/07/16 at 13:45 Iron Sucrose/ Sodium Chloride (Venofer/Iv Sodium Chloride 0.9% 250ml) 275 ml @ 78.571 mls/ hr 1X ONCE IV Last administered on 11/08/16 06:30; Start at 06:30; Stop 11/08/16 at 09:59; Status DC Acetaminophen (Tylenol) 650 mg 1X PRN PRN PO PRN prior to blood transfusion; Start 11/08/16 at 09:15; Stop 11/09/16 at 09:14; Status DC Ondansetron HCl (Zofran) 4 mg STK-MED ONCE .ROUTE ; Start 11/09/16 at 02:07; Stop 11/09/16 at 02:08; Status DC Carvedilol (Coreg) 12.5 mg BIDWMEALS PO ; Start 11/09/16 at 08:00 Ondansetron HCl (Zofran) 4 mg PRN Q6HRS PRN IV NAUSEA/VOMITING; Start 11/09/16 at 05:48 Acetaminophen 650 mg 650 mg PRN Q6HRS PRN PO FEVER; Start 11/09/16 at 05:48 Sodium Chloride (Iv Sodium Chloride 0.9% 1000ml Bag) 1,000 ml @ 1,000 mls/hr Q1H PRN IV hypotension; Start 11/09/16 at 07:34; Stop 11/09/16 at 13:33 Diphenhydramine HCl 25 mg 25 mg 1X PRN PRN IV ITCHING; Start 11/09/16 at 07:45 ; Stop 11/10/16 at 07:44 Sodium Chloride (Iv Sodium Chloride 0.9% 1000ml Bag) 1,000 ml @ 400 mls/hr Q2H30M PRN IV PATENCY; Start 11/09/16 at 07:34; Stop 11/09/16 at 19:33 Info (PHARMACY MONITORING -- do not chart) 1 each PRN DAILY PRN MC SEE COMMENTS ; Start 11/09/16 at 07:45; Status UNV Info (PHARMACY MONITORING -- do not chart) 1 each PRN DAILY PRN MC SEE COMMENTS ; Start 11/09/16 at 07:45; Status UNV Amlodipine Besylate (Norvasc) 10 mg STK-MED ONCE .ROUTE ; Start 11/09/16 at 08: 31; Stop 11/09/16 at 08:32; Status DC Aminocaproic Acid (Amicar) 1,000 mg Q4HRS PO ; Start 11/09/16 at 12:00 Desmopressin Acetate (Ddavp) 20 mcg ONCE ONCE SQ ; Start 11/09/16 at 09:30; Stop 11/09/16 at 09:32; Status DC Active Scripts Active Percocet 5-325 Mg Tablet (Oxycodone/Acetaminophen) 1 Each Tablet 1 Tab PO QID PRN Alprazolam 0.5 Mg Tablet 0.5 Mg PO Q8HRS PRN Oxycodone Hcl 10 Mg Tablet 1 Tab PO PRN BID PRN Olanzapine Odt (Olanzapine) 10 Mg Tab.rapdis 10 Mg PO QHS Lamotrigine 25 Mg Tablet 25 Mg PO DAILY 30 Days Zoloft (Sertraline Hcl) 100 Mg Tablet 200 Mg PO DAILY Risperidone 4 Mg Tablet 4 Mg PO DAILY Zofran Odt (Ondansetron) 4 Mg Tab.rapdis 1 Tab SL Q8HRS Reported NICODERM CQ 21mg (Nicotine) 1 Each Patch.td24 1 Patch TP DAILY Depakote (Divalproex Sodium) 250 Mg Tablet.dr 250 Mg PO TID Amlodipine Besylate 10 Mg Tablet 10 Mg PO DAILY Hydralazine Hcl 50 Mg Tablet 50 Mg PO QID Renagel (Sevelamer Hcl) 800 Mg Tablet 800 Mg PO TIDWMEALS Simvastatin 40 Mg Tablet 40 Mg PO HS Levothyroxine Sodium 125 Mcg Tablet 125 Mcg PO DAILYAC Gabapentin 300 Mg Capsule 300 Mg PO DAILY Phoslo (Calcium Acetate) 667 Mg Capsule 667 Mg PO TIDWMEALS Carvedilol 12.5 Mg Tablet 12.5 Mg PO BIDWMEALS Vitals/I & O Vital Sign - Last 24 Hours 11/08/16 11/08/16 11/08/16 11/08/16 10:47 11:00 11:15 12:12 Temp 98.4 98.4 98.5 98.6 98.4 98.4 98.5 98.6 Pulse 75 75 69 72 Resp 18 16 14 18 B/P 134/68 134/68 125/64 137/67 Pulse Ox 96 O2 Delivery Room Air 11/08/16 11/08/16 11/08/16 11/08/16 13:00 13:00 13:13 14:30 Temp 98.3 99.4 98.3 99.4 Pulse 72 75 74 Resp 12 18 B/P 137/67 144/72 133/65 Pulse Ox 96 95 O2 Delivery Room Air Room Air 11/08/16 11/08/16 11/08/16 11/08/16 14:31 14:59 15:59 17:01 Temp 99.4 99.4 Pulse 74 74 Resp 18 B/P 133/65 133/65 Pulse Ox 96 O2 Delivery Room Air O2 Flow Rate 4.0 4.0 11/08/16 11/08/16 11/08/16 11/08/16 17:01 17:02 19:00 20:03 Temp 98.5 98.5 Pulse 74 72 Resp 16 B/P 133/65 120/59 Pulse Ox 96 95 O2 Delivery Room Air Room Air Room Air O2 Flow Rate 4.0 11/08/16 11/08/16 11/08/16 11/08/16 21:33 21:33 21:34 22:09 Pulse 72 Resp 18 18 B/P 120/59 Pulse Ox 95 O2 Delivery Room Air Room Air O2 Flow Rate 4.0 11/08/16 11/09/16 11/09/16 11/09/16 22:53 03:00 06:30 06:30 Temp 98.1 97.9 98.1 97.9 Pulse 73 76 Resp 20 20 18 18 B/P 163/65 154/66 Pulse Ox 95 98 98 98 O2 Delivery Room Air Room Air Room Air Room Air O2 Flow Rate 4.0 4.0 11/09/16 11/09/16 07:25 07:25 Resp 18 18 Pulse Ox 98 98 O2 Delivery Room Air Room Air Intake and Output 11/08/16 11/08/16 11/09/16 15:00 23:00 07:00 Intake Total 870 ml 300 ml 640 ml Balance 870 ml 300 ml 640 ml BRANDI JARA MD Nov 09, 2016 10:33
--- NOTE | 2016-11-09 11:31 | PDOC ---
Renal-Progress Notes Subjective Notes Notes NO NEW COMPLAINTS History of Present Illness Hx of present illness NO CHANGE Vitals Vitals Vital Signs Date Time Temp Pulse Resp B/P Pulse Ox O2 Delivery O2 Flow Rate FiO2 11/09/16 07:25 18 98 Room Air 11/09/16 06:30 4.0 11/09/16 03:00 97.9 76 154/66 97.9 Weight Weight [ ] I.O. Intake and Output Intake and Output 11/09/16 07:00 Intake Total 1810 ml Balance 1810 ml Intake Oral 1660 ml IV Total 110 ml Blood Product IV Normal Saline Flush 40 ml # Voids 3 Labs Labs Laboratory Tests Test 11/09/16 08:15 White Blood Count 7.4x10^3/uL (4.0-11.0) Red Blood Count 2.01x10^6/uL (3.50-5.40) Hemoglobin 6.2g/dL (12.0-15.5) Hematocrit 18.5% (36.0-47.0) Mean Corpuscular Volume 92fL (79-100) Mean Corpuscular Hemoglobin 31pg (25-35) Mean Corpuscular Hemoglobin Concent 33g/dL (31-37) Red Cell Distribution Width 16.9% (11.5-14.5) Platelet Count 135x10^3/uL (140-400) Reticulocyte Count (auto) 5.9% (0.5-2.5) Micro Micro Microbiology 11/02/16 Blood Culture - Final, Complete NO GROWTH AFTER 5 DAYS 10/30/16 Urine Culture - Final, Complete 10/30/16 Urine Culture Result 1 (CHRISTOPH) - Final, Complete 10/30/16 Urine Culture Result 2 (CHRISTOPH) - Final, Complete Review of Systems Constitutional: yes: no symptom reported Physical Exam General Appearance: no apparent distress Skin: warm Respiratory: bilateral CTA Genitourinary: bladder flat Extremities: pulses present Neurology: alert Musculoskeletal: Stiffness Assessment Assessment IMP ESRD ANEMIA GI BLEED/ANGIODYSPLASIA ABD PAIN NON COMPLIANCE PLAN HD TODAY UF TO DW PRBC TODAY CONT ARANESP ENC COMPLIANCE WILL FOLLOW YASMIN LEONARDO MD Nov 09, 2016 11:31
[2016-11-09] MEDS: PANTOPRAZOLE 40 MG TABLET. PO SCH (11:45)
[2016-11-09] MEDS: CARVEDILOL 12.5 MG TABLET. PO SCH ×2 (11:46→17:41)
[2016-11-09] MEDS: DOCUSATE SODIUM 100 MG CAPSULE. PO SCH (11:50)
[2016-11-09] MEDS: DIVALPROEX DELAYED RELEASE 250 MG TABLET.DR. PO SCH ×3 (11:50→22:25)
[2016-11-09] MEDS: GABAPENTIN 300 MG CAPSULE. PO SCH (11:51)
[2016-11-09] MEDS: AMLODIPINE BESYLATE 10 MG TABLET PO SCH (11:52)
[2016-11-09] MEDS: risperiDONE 1 MG TABLET. PO SCH (11:53)
[2016-11-09] MEDS: SERTRALINE 50 MG TABLET. PO SCH (11:53)
[2016-11-09] MEDS: NICOTINE 21MG PATCH. TD SCH (11:56)
[2016-11-09] MEDS: AMINOCAPROIC ACID 500 MG TABLET. PO SCH ×4 (11:57→23:49)
--- NOTE | 2016-11-09 12:12 | PDOC ---
Subjective: Subjective: Still having dark "runny" stools. Objective: Vital Signs: Vital Signs Date Time Temp Pulse Resp B/P Pulse Ox O2 Delivery O2 Flow Rate FiO2 11/09/16 11:52 68 115/49 11/09/16 11:43 20 98 Room Air 11/09/16 06:30 4.0 11/09/16 03:00 97.9 97.9 Labs: Laboratory Tests Test 11/09/16 08:15 White Blood Count 7.4x10^3/uL Red Blood Count 2.01x10^6/uL Hemoglobin 6.2g/dL Hematocrit 18.5% Mean Corpuscular Volume 92fL Mean Corpuscular Hemoglobin 31pg Mean Corpuscular Hemoglobin Concent 33g/dL Red Cell Distribution Width 16.9% Platelet Count 135x10^3/uL Reticulocyte Count (auto) 5.9% PE: GEN: NAD LUNGS: CTAB HEART: RRR ABD: NABS, S/ND/NT NEURO/PSYCH: A & O 3 A/P: GI angiodysplasiae, HAYES -Hgb in 6s, still requiring transfusions -on PPI, iron -onc following, ordered Amicar and Ddavp -colonoscopy 2007 w/ internal hemorrhoids, EGD recently at [facility] and repeated here this week -ESRD on HD, h/o Hep C -- Other per Dr. Lora. ARNAUD KITCHEN Nov 09, 2016 12:12
[2016-11-09 12:13] LABS: CALCIUM 8.6 mg/dL (8.5-10.1); GFR 14.1; POTASSIUM 3.9 mmol/L (3.5-5.1)
[2016-11-09] MEDS: lamoTRIgine 25 MG TABLET. PO SCH (12:26)
[2016-11-09 15:27] LABS: HGB A 97.8 % (94.0-98.0); HGB A2 2.2 % (0.7-3.1); HGB ELECROPHORESIS COMMENT Note: (.)
[2016-11-09] MEDS: ALPRAZOLAM 0.5 MG TABLET. PO PRN (22:25)
[2016-11-09] MEDS: ATORVASTATIN CALCIUM 20 MG TABLET PO SCH (22:26)
[2016-11-09] MEDS: OLANZAPINE 5 MG TABLET. PO SCH (22:26)
[2016-11-10] VITALS (9 sets, daily range): BP systolic 120–160; BP diastolic 53–85
[2016-11-10] MEDS: HYDROCODONE/APAP 7.5/325MG TABLET. PO PRN ×2 (02:42→08:59)
[2016-11-10] MEDS: MORPHINE SULFATE 2 MG/ML DISP.SYRIN. IV PRN ×3 (03:21→20:00)
[2016-11-10] MEDS ORDERED: PANTOPRAZOLE 40 MG TABLET.DR. PO ONE (03:55)
[2016-11-10] MEDS: AMINOCAPROIC ACID 500 MG TABLET. PO SCH ×5 (04:05→19:56)
[2016-11-10] MEDS: PANTOPRAZOLE 40 MG TABLET.DR. PO SCH (06:19)
[2016-11-10] MEDS: LEVOTHYROXINE 125 MCG TABLET PO SCH (06:19)
[2016-11-10] MEDS: IRON SUCROSE COMPLEX 200 MG in IV NORMAL SALINE 100ML 100 ML IV SCH (08:45)
[2016-11-10] MEDS: CALCIUM ACETATE 667 MG CAPSULE PO SCH ×3 (08:47→17:14)
[2016-11-10] MEDS: AMLODIPINE BESYLATE 10 MG TABLET. PO SCH (08:48)
[2016-11-10] MEDS: HYDRALAZINE 50 MG TABLET PO SCH ×4 (08:49→22:11)
[2016-11-10] MEDS: risperiDONE 1 MG TABLET. PO SCH (08:49)
[2016-11-10] MEDS: DOCUSATE SODIUM 100 MG CAPSULE. PO SCH (08:49)
[2016-11-10] MEDS: DIVALPROEX DELAYED RELEASE 250 MG TABLET.DR. PO SCH ×3 (08:50→22:12)
[2016-11-10] MEDS: SERTRALINE 50 MG TABLET. PO SCH (08:50)
[2016-11-10] MEDS: GABAPENTIN 300 MG CAPSULE. PO SCH (08:50)
[2016-11-10] MEDS: CARVEDILOL 12.5 MG TABLET. PO SCH ×2 (08:51→17:14)
[2016-11-10] MEDS: NICOTINE 21MG PATCH. TD SCH (08:51)
[2016-11-10] MEDS: lamoTRIgine 25 MG TABLET. PO SCH (08:51)
[2016-11-10] MEDS: LIDOCAINE (700MG/PATCH) PATCH. TD SCH (08:52)
[2016-11-10] MEDS: POLYETHYLENE GLYCOL 3350 17 GM PACKET. PO SCH (09:00)
[2016-11-10] MEDS: ONDANSETRON PF 4 MG/2 ML VIAL. IV PRN ×2 (09:01→17:16)
[2016-11-10] MEDS: SEVELAMER CARBONATE 800 MG TABLET. PO SCH ×3 (09:12→17:15)
--- NOTE | 2016-11-10 10:11 | PDOC ---
PROGRESS NOTES Chief Complaint Chief Complaint anemia, recurrent 1. Abdominal pain, acute on chronic resolved. 2. ESRD on HD 3. Type 2 diabetes 4. High cholesterol 5. Hypertension 6. Hypothyroidism 7. Hepatitis C untreated. 8. h/o multisubstance Abuse 9. Chronic back and hip pain 10. Acute on chronic anemia, with ESRD, GI angiodysplasia, possible platelet dysfunction due to uremia. 11. Non compliance 12. H/O Schizophrenia, suicidal idea 13. Homelessness Plan Repeated drop in hemoglobin despite blood transfusion, stable at 8 today. Total s/p 10 units of PRBC during her stay. Oncology following, Started on Amicar and DDAVP, On Protonix HD per nephrology IV Venofer Close monitoring of hemoglobin. not ready fro DC. History of Present Illness History of Present Illness SMALL BM today no blood in it. Vitals Vitals Vital Signs Date Time Temp Pulse Resp B/P Pulse Ox O2 Delivery O2 Flow Rate FiO2 11/10/16 08:59 14 96 Room Air 11/10/16 08:51 72 154/80 11/10/16 07:30 98.4 98.4 Physical Exam General: Alert, Oriented X3 Heart: Normal S1, Normal S2 Lungs: Clear Abdomen: Normal bowel sounds, Soft, No tenderness, No hepatosplenomegaly, No masses Extremities: No edema Skin: No rashes, No significant lesion Labs LABS Laboratory Tests Test 11/09/16 11:50 Sodium Level 141mmol/L (136-145) Potassium Level 3.9mmol/L (3.5-5.1) Chloride Level 103mmol/L (98-107) Carbon Dioxide Level 30mmol/L (21-32) Anion Gap 8 (6-14) Blood Urea Nitrogen 55mg/dL (7-20) Creatinine 4.0mg/dL (0.6-1.0) Estimated GFR (Cockcroft-Gault) 14.1 Glucose Level 193mg/dL (70-99) Calcium Level 8.6mg/dL (8.5-10.1) Assessment and Plan Assessmemt and Plan Problems Medical Problems: (1) Abdominal pain Status: Acute (2) ESRD (end stage renal disease) Status: Acute Problems: Comment Review of Relevant I have reviewed the following items hemal (where applicable) has been applied. Labs Laboratory Tests Test 11/09/16 08:15 11/09/16 11:50 White Blood Count 7.4x10^3/uL (4.0-11.0) Red Blood Count 2.01x10^6/uL (3.50-5.40) Hemoglobin 6.2g/dL (12.0-15.5) Hematocrit 18.5% (36.0-47.0) Mean Corpuscular Volume 92fL (79-100) Mean Corpuscular Hemoglobin 31pg (25-35) Mean Corpuscular Hemoglobin Concent 33g/dL (31-37) Red Cell Distribution Width 16.9% (11.5-14.5) Platelet Count 135x10^3/uL (140-400) Reticulocyte Count (auto) 5.9% (0.5-2.5) Sodium Level 141mmol/L (136-145) Potassium Level 3.9mmol/L (3.5-5.1) Chloride Level 103mmol/L (98-107) Carbon Dioxide Level 30mmol/L (21-32) Anion Gap 8 (6-14) Blood Urea Nitrogen 55mg/dL (7-20) Creatinine 4.0mg/dL (0.6-1.0) Estimated GFR (Cockcroft-Gault) 14.1 Glucose Level 193mg/dL (70-99) Calcium Level 8.6mg/dL (8.5-10.1) Laboratory Tests Test 11/09/16 11:50 Sodium Level 141mmol/L (136-145) Potassium Level 3.9mmol/L (3.5-5.1) Chloride Level 103mmol/L (98-107) Carbon Dioxide Level 30mmol/L (21-32) Anion Gap 8 (6-14) Blood Urea Nitrogen 55mg/dL (7-20) Creatinine 4.0mg/dL (0.6-1.0) Estimated GFR (Cockcroft-Gault) 14.1 Glucose Level 193mg/dL (70-99) Calcium Level 8.6mg/dL (8.5-10.1) Microbiology 11/02/16 Blood Culture - Final, Complete NO GROWTH AFTER 5 DAYS 10/30/16 Urine Culture - Final, Complete 10/30/16 Urine Culture Result 1 (CHRISTOPH) - Final, Complete 3/20/17 Urine Culture Result 2 (CHRISTOPH) - Final, Complete Medications Current Medications Aspirin (Children'S Aspirin) 324 mg 1X ONCE PO Last administered on 10/30/16 17:05; Start 10/30/16 at 17:00; Stop 10/30/16 at 17:01; Status DC Alprazolam (Xanax) 0.5 mg PRN Q8HRS PRN PO ANXIETY / AGITATION Last administered on 11/06/16 21:19; Start 10/30/16 at 19:30; Stop 11/07/16 at 13:38 ; Status DC Amlodipine Besylate (Norvasc) 10 mg DAILY PO Last administered on 11/09/16 11: 52; Start 10/31/16 at 09:00; Stop 11/09/16 at 20:58; Status DC Calcium Acetate (Phoslo) 667 mg TIDWMEALS PO Last administered on 10/31/16 08: 43; Start 10/31/16 at 08:00; Stop 10/31/16 at 10:52; Status DC Carvedilol (Coreg) 12.5 mg BIDWMEALS PO Last administered on 11/08/16 17:01; Start 10/31/16 at 08:00; Stop 11/09/16 at 05:48; Status DC Divalproex Sodium (Depakote) 250 mg TID PO Last administered on 11/10/16 08:50 ; Start 10/30/16 at 21:00 Gabapentin (Neurontin) 300 mg DAILY PO Last administered on 11/10/16 08:50; Start 10/31/16 at 09:00 Hydralazine HCl (Apresoline) 50 mg QID PO Last administered on 11/10/16 08:49 ; Start 10/30/16 at 21:00 Lamotrigine (LaMICtal) 25 mg DAILY PO Last administered on 11/10/16 08:51; Start 10/31/16 at 09:00 Levothyroxine Sodium (Synthroid) 125 mcg DAILY07 PO Last administered on 06:19; Start 10/31/16 at 07:00 Nicotine (Nicoderm Cq 21mg) 1 patch DAILY TD Last administered on 11/10/16 08: 51; Start 10/31/16 at 09:00 Atorvastatin Calcium (Lipitor) 20 mg QHS PO Last administered on 11/09/16 22: 26; Start 10/30/16 at 22:00 Olanzapine (Zyprexa) 10 mg QHS PO Last administered on 11/09/16 22:26; Start 10/30/16 at 21:30 Non-Formulary Medication 1 tab PRN BID PRN PO Severe pain; Start 10/30/16 at 19 :30; Stop 10/30/16 at 19:34; Status DC Risperidone (Risperdal) 4 mg DAILY PO Last administered on 11/10/16 08:49; Start 10/31/16 at 09:00 Sertraline HCl (Zoloft) 200 mg DAILY PO Last administered on 11/10/16 08:50; Start 10/31/16 at 09:00 Sevelamer Carbonate (Renvela) 800 mg TIDWMEALS PO Last administered on 09:12; Start 10/31/16 at 08:00 Ondansetron HCl (Zofran) 4 mg PRN Q6HRS PRN IV NAUSEA/VOMITING Last administered on 11/09/16 02:13; Start 10/30/16 at 19:30; Stop 11/09/16 at 05:48 ; Status DC Acetaminophen/ Hydrocodone Bitart (Lortab 5/325) 1 tab PRN Q4HRS PRN PO MILD PAIN Last administered on 11/05/16 09:17; Start 10/30/16 at 19:30; Stop at 09:29; Status DC Acetaminophen (Tylenol) 650 mg PRN Q6HRS PRN PO MILD PAIN / TEMP; Start at 19:30; Status UNV Heparin Sodium (Porcine) 5,000 unit Q8HRS SQ Last administered on 11/02/16 14: 00; Start 10/30/16 at 22:00; Stop 11/04/16 at 08:43; Status DC Acetaminophen (Tylenol) 650 mg PRN Q6HRS PRN PO FEVER Last administered on 11/02 18:08; Start 10/30/16 at 19:45; Stop 11/09/16 at 05:48; Status DC Hydralazine HCl (Apresoline) 10 mg PRN Q5MIN PRN IVP ELEVATED BP, SEE COMMENTS ; Start 10/30/16 at 19:45 Pantoprazole Sodium (Protonix) 40 mg DAILYAC PO Last administered on 11/09/16 11:45; Start 10/31/16 at 07:30; Stop 11/10/16 at 05:40; Status DC Ferrous Sulfate 300 mg BIDWMEALS PO Last administered on 11/03/16 08:36; Start 10/31/16 at 10:00; Stop 11/03/16 at 10:32; Status DC Polyethylene Glycol 17 gm 17 gm DAILY PO Last administered on 11/05/16 08:31; Start 10/31/16 at 12:00 Magnesium Sulfate/ Dextrose 50 ml @ 25 mls/hr PRN DAILY PRN IV for Mag < 1.7 on am labs; Start 10/31/16 at 10:45 Iron Sucrose/ Sodium Chloride (Venofer/Iv Sodium Chloride 0.9% 100ml) 110 ml @ 55 mls/hr 3X/WEEK IV Last administered on 11/10/16 08:45; Start 11/01/16 at 09 :00; Stop 11/10/16 at 10:59 Polyethylene Glycol (miraLAX PACKET) 17 gm PRN DAILY PRN PO CONSTIPATION; Start 10/31/16 at 10:45 Calcium Acetate 2001 mg 2,001 mg TIDWMEALS PO Last administered on 11/10/16 08 :47; Start 10/31/16 at 12:00 Sodium Chloride 1,000 ml @ 1,000 mls/hr Q1H PRN IV hypotension; Start 10/31/16 at 16:46; Stop 10/31/16 at 22:45; Status DC Albumin Human (Albuminar) 200 ml @ 200 mls/hr 1X PRN PRN IV Hypotension; Start 10/31/16 at 17:00; Stop 10/31/16 at 22:59; Status DC Acetaminophen (Tylenol) 500 mg 1X PRN PRN PO MILD PAIN / TEMP; Start 10/31/16 at 17:00; Stop 11/01/16 at 16:59; Status DC Diphenhydramine HCl (Benadryl) 25 mg 1X PRN PRN IV ITCHING; Start 10/31/16 at 17:00; Stop 11/01/16 at 16:59; Status DC Diphenhydramine HCl 25 mg 25 mg 1X PRN PRN IV ITCHING; Start 10/31/16 at 17:00 ; Stop 11/01/16 at 16:59; Status DC Sodium Chloride (Iv Sodium Chloride 0.9% 1000ml Bag) 1,000 ml @ 400 mls/hr Q2H30M PRN IV PATENCY; Start 10/31/16 at 16:46; Stop 11/01/16 at 04:45; Status DC Info (PHARMACY MONITORING -- do not chart) 1 each PRN DAILY PRN MC SEE COMMENTS ; Start 10/31/16 at 17:00; Stop 11/04/16 at 13:14; Status DC Docusate Sodium (Colace) 100 mg DAILY PO Last administered on 11/05/16 08:32; Start 11/01/16 at 09:00; Stop 11/06/16 at 14:07; Status DC Fentanyl Citrate 50 mcg 50 mcg 1X ONCE IV Last administered on 11/01/16 11:14 ; Start 11/01/16 at 11:15; Stop 11/01/16 at 11:16; Status DC Sodium Chloride (Iv Sodium Chloride 0.9% 1000ml Bag) 1,000 ml @ 1,000 mls/hr Q1H PRN IV hypotension; Start 11/02/16 at 07:39; Stop 11/02/16 at 13:38; Status DC Acetaminophen (Tylenol) 500 mg 1X PRN PRN PO MILD PAIN / TEMP; Start 11/02/16 at 07:45; Stop 11/03/16 at 07:44; Status DC Diphenhydramine HCl (Benadryl) 25 mg 1X PRN PRN IV ITCHING Last administered on 11/02/16 15:55; Start 11/02/16 at 07:45; Stop 11/03/16 at 07:44; Status DC Diphenhydramine HCl (Benadryl) 25 mg 1X PRN PRN IV ITCHING Last administered on 11/02/16 08:41; Start 11/02/16 at 07:45; Stop 11/03/16 at 07:44; Status DC Labetalol HCl 10 mg 10 mg PRN Q1HR PRN IVP SBP > 180; Start 11/02/16 at 07:45; Stop 11/03/16 at 07:44; Status DC Sodium Chloride (Iv Sodium Chloride 0.9% 1000ml Bag) 1,000 ml @ 400 mls/hr Q2H30M PRN IV PATENCY; Start 11/02/16 at 07:39; Stop 11/02/16 at 19:38; Status DC Info (PHARMACY MONITORING -- do not chart) 1 each PRN DAILY PRN MC SEE COMMENTS ; Start 11/02/16 at 07:45; Stop 11/02/16 at 07:51; Status DC Calcium Carbonate/ Glycine (Tums) 500 mg PRN AFTMEALHC PRN PO INDIGESTION Last administered on 11/08/16 21:32; Start 11/02/16 at 15:15 Lidocaine (Lidoderm) 1 patch DAILY TD Last administered on 11/10/16 08:52; Start 11/02/16 at 15:45 Vancomycin HCl 1 each 1 each PRN DAILY PRN MC SEE COMMENTS Last administered on 11/04/16 14:19; Start 11/02/16 at 18:30; Stop 11/06/16 at 11:31; Status DC Piperacillin Sod/ Tazobactam Sod 2.25 gm/Sodium Chloride 50 ml @ 100 mls/hr Q8HRS IV Last administered on 11/06/16 05:54; Start 11/02/16 at 18:30; Stop at 11:31; Status DC Vancomycin HCl/ Sodium Chloride (Iv Sodium Chloride 0.9% 500ml Bag) 500 ml @ 250 mls/hr 1X ONCE IV Last administered on 11/02/16 21:12; Start 11/02/16 at 18:30; Stop 11/02/16 at 20:29; Status DC Vancomycin HCl 1 each 1X ONCE MC Last administered on 11/04/16 06:00; Start 11/04/16 at 06:00; Stop 11/04/16 at 06:01; Status DC Diphenhydramine HCl (Benadryl) 25 mg PRN Q6HRS PRN PO ITCHING Last administered on 11/04/16 22:08; Start 11/03/16 at 02:00 Darbepoetin Sourav 60 mcg 60 mcg WEEKLYHS SQ Last administered on 11/03/16 21:42 ; Start 11/03/16 at 21:00 Sodium Chloride 1,000 ml @ 1,000 mls/hr Q1H PRN IV hypotension; Start 11/04/16 at 06:23; Stop 11/04/16 at 12:22; Status DC Albumin Human (Albuminar) 200 ml @ 200 mls/hr 1X PRN PRN IV Hypotension; Start 11/04/16 at 06:30; Stop 11/04/16 at 12:29; Status DC Acetaminophen (Tylenol) 500 mg 1X PRN PRN PO MILD PAIN / TEMP; Start 11/04/16 at 06:30; Stop 11/05/16 at 06:29; Status DC Diphenhydramine HCl (Benadryl) 25 mg 1X PRN PRN IV ITCHING Last administered on 11/04/16 06:57; Start 11/04/16 at 06:30; Stop 11/05/16 at 06:29; Status DC Diphenhydramine HCl (Benadryl) 25 mg 1X PRN PRN IV ITCHING; Start 11/04/16 at 06:30; Stop 11/05/16 at 06:29; Status DC Labetalol HCl (Normodyne) 10 mg PRN Q1HR PRN IVP SBP > 180; Start 11/04/16 at 06:30; Stop 11/05/16 at 06:29; Status DC Clonidine HCl (Catapres) 0.1 mg 1X PRN PRN PO SBP > 180; Start 11/04/16 at 06: 30; Stop 11/05/16 at 06:29; Status DC Info 1 each 1 each PRN DAILY PRN MC SEE COMMENTS; Start 11/04/16 at 06:30 Vancomycin HCl/ Sodium Chloride (Iv Sodium Chloride 0.9% 100ml) 100 ml @ 100 mls/hr QTUTHSA IV Last administered on 11/04/16 16:08; Start 11/04/16 at 16:00 ; Stop 11/06/16 at 11:31; Status DC Acetaminophen/ Hydrocodone Bitart (Lortab 7.5/325) 1 tab PRN Q6HRS PRN PO PAIN Last administered on 11/10/16 08:59; Start 11/05/16 at 09:30 Morphine Sulfate 1 mg PRN Q4HRS PRN IV PAIN Last administered on 11/10/16 03: 21; Start 11/05/16 at 09:30 Docusate Sodium (Colace) 100 mg DAILY PO Last administered on 11/10/16 08:49; Start 11/07/16 at 09:00 Alprazolam 0.5 mg 0.5 mg STK-MED ONCE .ROUTE Last administered on 11/07/16 20: 31; Start 11/06/16 at 20:33; Stop 11/06/16 at 20:34; Status DC Sodium Chloride 1,000 ml @ 1,000 mls/hr Q1H PRN IV hypotension; Start 11/07/16 at 08:23; Stop 11/07/16 at 14:22; Status DC Sodium Chloride (Iv Sodium Chloride 0.9% 1000ml Bag) 1,000 ml @ 400 mls/hr Q2H30M PRN IV PATENCY; Start 11/07/16 at 08:23; Stop 11/07/16 at 20:22; Status DC Info 1 each 1 each PRN DAILY PRN MC SEE COMMENTS; Start 11/07/16 at 08:30; Stop 11/07/16 at 13:47; Status DC Iron Sucrose 500 mg/Sodium Chloride 275 ml @ 78.571 mls/ hr 1X ONCE IV ; Start 11/07/16 at 09:00; Stop 11/07/16 at 12:29; Status DC Propofol (Diprivan) 20 ml @ As Directed STK-MED ONCE IV ; Start 11/07/16 at 13: 22; Stop 11/07/16 at 13:23; Status DC Alprazolam 0.5 mg 0.5 mg PRN Q8HRS PRN PO ANXIETY / AGITATION Last administered on 11/09/16 22:25; Start 11/07/16 at 13:45 Iron Sucrose/ Sodium Chloride (Venofer/Iv Sodium Chloride 0.9% 250ml) 275 ml @ 78.571 mls/ hr 1X ONCE IV Last administered on 11/08/16 06:30; Start at 06:30; Stop 11/08/16 at 09:59; Status DC Acetaminophen (Tylenol) 650 mg 1X PRN PRN PO PRN prior to blood transfusion; Start 11/08/16 at 09:15; Stop 11/09/16 at 09:14; Status DC Ondansetron HCl (Zofran) 4 mg STK-MED ONCE .ROUTE ; Start 11/09/16 at 02:07; Stop 11/09/16 at 02:08; Status DC Carvedilol (Coreg) 12.5 mg BIDWMEALS PO Last administered on 11/10/16 08:51; Start 11/09/16 at 08:00 Ondansetron HCl (Zofran) 4 mg PRN Q6HRS PRN IV NAUSEA/VOMITING Last administered on 11/10/16 09:01; Start 11/09/16 at 05:48 Acetaminophen 650 mg 650 mg PRN Q6HRS PRN PO FEVER; Start 11/09/16 at 05:48 Sodium Chloride (Iv Sodium Chloride 0.9% 1000ml Bag) 1,000 ml @ 1,000 mls/hr Q1H PRN IV hypotension; Start 11/09/16 at 07:34; Stop 11/09/16 at 13:33; Status DC Diphenhydramine HCl 25 mg 25 mg 1X PRN PRN IV ITCHING; Start 11/09/16 at 07:45 ; Stop 11/10/16 at 07:44; Status DC Sodium Chloride (Iv Sodium Chloride 0.9% 1000ml Bag) 1,000 ml @ 400 mls/hr Q2H30M PRN IV PATENCY; Start 11/09/16 at 07:34; Stop 11/09/16 at 19:33; Status DC Info (PHARMACY MONITORING -- do not chart) 1 each PRN DAILY PRN MC SEE COMMENTS ; Start 11/09/16 at 07:45; Status UNV Info (PHARMACY MONITORING -- do not chart) 1 each PRN DAILY PRN MC SEE COMMENTS ; Start 11/09/16 at 07:45; Status UNV Amlodipine Besylate (Norvasc) 10 mg STK-MED ONCE .ROUTE ; Start 11/09/16 at 08: 31; Stop 11/09/16 at 08:32; Status DC Aminocaproic Acid (Amicar) 1,000 mg Q4HRS PO Last administered on 11/10/16 08: 46; Start 11/09/16 at 12:00 Desmopressin Acetate (Ddavp) 20 mcg ONCE ONCE SQ Last administered on 11:33; Start 11/09/16 at 09:30; Stop 11/09/16 at 09:32; Status DC Amlodipine Besylate (Norvasc) 10 mg DAILY PO Last administered on 11/10/16 08: 48; Start 11/10/16 at 09:00 Pantoprazole Sodium (Protonix) 40 mg STK-MED ONCE PO ; Start 11/10/16 at 03:55; Stop 11/10/16 at 03:56; Status DC Pantoprazole Sodium (Protonix) 40 mg DAILYAC PO Last administered on 11/10/16 06:19; Start 11/10/16 at 05:40 Active Scripts Active Percocet 5-325 Mg Tablet (Oxycodone/Acetaminophen) 1 Each Tablet 1 Tab PO QID PRN Alprazolam 0.5 Mg Tablet 0.5 Mg PO Q8HRS PRN Oxycodone Hcl 10 Mg Tablet 1 Tab PO PRN BID PRN Olanzapine Odt (Olanzapine) 10 Mg Tab.rapdis 10 Mg PO QHS Lamotrigine 25 Mg Tablet 25 Mg PO DAILY 30 Days Zoloft (Sertraline Hcl) 100 Mg Tablet 200 Mg PO DAILY Risperidone 4 Mg Tablet 4 Mg PO DAILY Zofran Odt (Ondansetron) 4 Mg Tab.rapdis 1 Tab SL Q8HRS Reported NICODERM CQ 21mg (Nicotine) 1 Each Patch.td24 1 Patch TP DAILY Depakote (Divalproex Sodium) 250 Mg Tablet.dr 250 Mg PO TID Amlodipine Besylate 10 Mg Tablet 10 Mg PO DAILY Hydralazine Hcl 50 Mg Tablet 50 Mg PO QID Renagel (Sevelamer Hcl) 800 Mg Tablet 800 Mg PO TIDWMEALS Simvastatin 40 Mg Tablet 40 Mg PO HS Levothyroxine Sodium 125 Mcg Tablet 125 Mcg PO DAILYAC Gabapentin 300 Mg Capsule 300 Mg PO DAILY Phoslo (Calcium Acetate) 667 Mg Capsule 667 Mg PO TIDWMEALS Carvedilol 12.5 Mg Tablet 12.5 Mg PO BIDWMEALS Vitals/I & O Vital Sign - Last 24 Hours 11/09/16 11/09/16 11/09/16 11/09/16 11:00 11:43 11:46 11:52 Temp 97.8 97.8 Pulse 88 68 68 Resp 18 20 B/P 123/56 115/49 115/49 Pulse Ox 95 98 O2 Delivery Room Air Room Air 11/09/16 11/09/16 11/09/16 11/09/16 12:26 13:00 14:57 15:00 Temp 98.7 98.0 98.7 98.0 Pulse 68 81 85 Resp 20 16 B/P 115/49 156/69 135/61 Pulse Ox 100 O2 Delivery Room Air Room Air 11/09/16 11/09/16 11/09/16 11/09/16 15:17 15:58 16:57 17:01 Temp 99.0 98.7 98.2 98.2 99.0 98.7 98.2 98.2 Pulse 79 77 85 85 Resp 20 20 20 20 B/P 166/72 189/64 157/72 157/72 11/09/16 11/09/16 11/09/16 11/09/16 17:41 17:41 17:43 17:54 Temp 98.7 98.7 Pulse 85 85 76 Resp 20 20 B/P 157/72 157/72 131/65 Pulse Ox 100 O2 Delivery Room Air 11/09/16 11/09/16 11/09/16 11/09/16 18:16 19:00 19:15 20:00 Temp 98.7 98.3 98.9 98.7 98.3 98.9 Pulse 76 81 78 Resp 20 20 20 B/P 131/65 158/77 150/69 Pulse Ox 99 O2 Delivery Room Air Room Air Room Air 11/09/16 11/09/16 11/09/16 11/09/16 20:27 22:26 22:26 23:07 Temp 98.9 98.9 Pulse 84 84 Resp 18 18 B/P 139/68 139/68 Pulse Ox 100 100 O2 Delivery Room Air Room Air Room Air 11/09/16 11/10/16 11/10/16 11/10/16 23:42 00:02 01:02 02:02 Temp 98.9 98.7 98.9 98.8 98.9 98.7 98.9 98.8 Pulse 77 77 79 76 Resp 20 18 16 20 B/P 124/66 120/57 129/60 135/75 11/10/16 11/10/16 11/10/16 11/10/16 02:42 03:00 03:02 03:21 Temp 97.9 98.6 97.9 98.6 Pulse 76 70 Resp 20 20 20 20 B/P 126/53 142/73 Pulse Ox 100 97 100 O2 Delivery Room Air Room Air Room Air 11/10/16 11/10/16 11/10/16 11/10/16 03:42 03:42 07:30 08:48 Temp 98.4 98.4 Pulse 72 72 Resp 20 20 16 B/P 154/80 154/80 Pulse Ox 100 100 96 O2 Delivery Room Air Room Air Room Air 11/10/16 11/10/16 11/10/16 08:49 08:51 08:59 Pulse 72 72 Resp 14 B/P 154/80 154/80 Pulse Ox 96 O2 Delivery Room Air Intake and Output 11/09/16 11/09/16 11/10/16 15:00 23:00 07:00 Intake Total 315 ml 530 ml 590 ml Balance 315 ml 530 ml 590 ml BRANDI JARA MD Nov 10, 2016 10:11
--- NOTE | 2016-11-10 10:36 | PDOC ---
Subjective: Subjective: Onc f/u- ongoing anemia Pt very sleepy this AM. Thinks she has still had GI bleeding, not sure. No new complaints. Objective: Vital Signs: Vital Signs Date Time Temp Pulse Resp B/P Pulse Ox O2 Delivery O2 Flow Rate FiO2 11/10/16 08:59 14 96 Room Air 11/10/16 08:51 72 154/80 11/10/16 07:30 98.4 98.4 Physical Exam: Heart: Regular rate Extremities: No edema General: Alert, Oriented X3, Cooperative, No acute distress, Other (fatigued this AM) Lungs: Other (no resp distress) Psych/Mental Status: Mental status NL, Mood NL Labs/Imaging: CBC pending Hemoglobin electrophoresis normal Assessment/Plan A/P: 1. Acute on chronic anemia with obvious iron deficiency anemia and ongoing gastrointestinal bleed due to angiodysplasia s/p EGD 11/07. CKD, Hep C could also be contributing. No additional tx options per GI. S/P 1000 mg Venofer boost with 200 mg 3xwk with HD. On Amicar since 11/09. Nml hgb electrophoresis. 2. Mild thrombocytopenia. Consider uremic platelets. S/p DDAVP 11/09. 3. Angiodysplasia causing GI bleeding\ 4. End-stage renal disease, on dialysis 5. Untreated hepatitis C Plan: - Daily CBC, today's pending - Continue amicar thru the weekend; if no help will DC - Continue aranesp, Venofer with HD - Transfuse for hgb < 7 Will need to have stable blood counts before DC. Unfortunately this will likely be a chronic problem prompting repeat admissions. CLIFFORD LOUISE DO Nov 10, 2016 10:36
[2016-11-10 10:49] LABS: HEMATOCRIT 24.5 % (36.0-47.0); HEMOGLOBIN 8.3 g/dL (12.0-15.5); RED BLOOD COUNT 2.72 x10^6/uL (3.50-5.40); RED CELL DISTRIBUTION WIDTH 16.5 % (11.5-14.5); WHITE BLOOD COUNT 8.2 x10^3/uL (4.0-11.0)
--- NOTE | 2016-11-10 11:59 | PDOC ---
Renal-Progress Notes Subjective Notes Notes NONE History of Present Illness Hx of present illness NO CHANGE Vitals Vitals Vital Signs Date Time Temp Pulse Resp B/P Pulse Ox O2 Delivery O2 Flow Rate FiO2 11/10/16 10:42 97.4 71 14 160/85 100 Room Air 97.4 Weight Weight [ ] I.O. Intake and Output Intake and Output 11/10/16 07:00 Intake Total 1435 ml Balance 1435 ml Intake Oral 790 ml Blood Product IV Normal Saline Flush 645 ml Labs Labs Laboratory Tests Test 11/10/16 10:30 White Blood Count 8.2x10^3/uL (4.0-11.0) Red Blood Count 2.72x10^6/uL (3.50-5.40) Hemoglobin 8.3g/dL (12.0-15.5) Hematocrit 24.5% (36.0-47.0) Mean Corpuscular Volume 90fL (79-100) Mean Corpuscular Hemoglobin 31pg (25-35) Mean Corpuscular Hemoglobin Concent 34g/dL (31-37) Red Cell Distribution Width 16.5% (11.5-14.5) Platelet Count 142x10^3/uL (140-400) Micro Micro Microbiology 11/02/16 Blood Culture - Final, Complete NO GROWTH AFTER 5 DAYS 10/30/16 Urine Culture - Final, Complete 10/30/16 Urine Culture Result 1 (CHRISTOPH) - Final, Complete 10/30/16 Urine Culture Result 2 (CHRISTOPH) - Final, Complete Review of Systems Constitutional: yes: no symptom reported Physical Exam General Appearance: no apparent distress Skin: warm Respiratory: bilateral CTA Genitourinary: bladder flat Extremities: pulses present Neurology: alert Musculoskeletal: Stiffness Assessment Assessment IMP ESRD ANEMIA GI BLEED/ANGIODYSPLASIA ABD PAIN NON COMPLIANCE PLAN HD TOMORROW PRBC NEEDED CONT ARANESP ENC COMPLIANCE WILL FOLLOW YASMIN LEONARDO MD Nov 10, 2016 11:59
--- NOTE | 2016-11-10 12:25 | PDOC ---
Subjective: Subjective: Did not awaken. Objective: Objective: Per RN - no dark stools she has seen. Vital Signs: Vital Signs Date Time Temp Pulse Resp B/P Pulse Ox O2 Delivery O2 Flow Rate FiO2 11/10/16 12:10 71 160/85 11/10/16 10:42 97.4 14 100 Room Air 97.4 Labs: Laboratory Tests Test 11/10/16 10:30 White Blood Count 8.2x10^3/uL Red Blood Count 2.72x10^6/uL Hemoglobin 8.3g/dL Hematocrit 24.5% Mean Corpuscular Volume 90fL Mean Corpuscular Hemoglobin 31pg Mean Corpuscular Hemoglobin Concent 34g/dL Red Cell Distribution Width 16.5% Platelet Count 142x10^3/uL PE: GEN: NAD, in chair NEURO/PSYCH: asleep A/P: GI angiodysplasiae, HAYES -Hgb improved to >8 today -additionally has ESRD on HD, Hep C -on PPI, Amicar, has received Venofer, also gets aranesp -colonoscopy 2007 w/ internal hemorrhoids, two recent EGDs w/ endotherapy -- Other per Dr. Lora. ARNAUD KITCHEN Nov 10, 2016 12:25
[2016-11-10] MEDS: ATORVASTATIN CALCIUM 20 MG TABLET PO SCH (22:11)
[2016-11-10] MEDS: DARBEPOETIN ALFA 60 MCG/0.3 ML DISP.SYRIN. SQ SCH (22:12)
[2016-11-10] MEDS: OLANZAPINE 5 MG TABLET. PO SCH (22:12)
[2016-11-11] MEDS: AMINOCAPROIC ACID 500 MG TABLET. PO SCH ×5 (00:12→15:50)
[2016-11-11] MEDS: ONDANSETRON PF 4 MG/2 ML VIAL. IV PRN ×2 (00:25→07:52)
[2016-11-11] MEDS: MORPHINE SULFATE 2 MG/ML DISP.SYRIN. IV PRN ×3 (00:25→16:32)
[2016-11-11] MEDS ORDERED: MORPHINE SULFATE 2 MG/ML DISP.SYRIN. IV ONE (04:30)
[2016-11-11] MEDS: LEVOTHYROXINE 125 MCG TABLET PO SCH (06:25)
[2016-11-11] MEDS: PANTOPRAZOLE 40 MG TABLET.DR. PO SCH (06:26)
[2016-11-11 06:47] LABS: CALCIUM 8.7 mg/dL (8.5-10.1); CREATININE 7.4 mg/dL (0.6-1.0); GFR 6.9
[2016-11-11 06:57] LABS: POTASSIUM 6.2 mmol/L (3.5-5.1)
[2016-11-11 07:00] VITALS: BP 111/57
[2016-11-11] MEDS ORDERED: GABAPENTIN 300 MG CAPSULE. PO ONE (07:39)
[2016-11-11] MEDS: NICOTINE 21MG PATCH. TD SCH (07:46)
[2016-11-11] MEDS: lamoTRIgine 25 MG TABLET. PO SCH (07:47)
[2016-11-11] MEDS: risperiDONE 1 MG TABLET. PO SCH (07:48)
[2016-11-11] MEDS: SERTRALINE 50 MG TABLET. PO SCH (07:48)
[2016-11-11] MEDS: CALCIUM ACETATE 667 MG CAPSULE PO SCH ×3 (07:48→16:33)
[2016-11-11] MEDS: DIVALPROEX DELAYED RELEASE 250 MG TABLET.DR. PO SCH ×2 (07:49→14:29)
[2016-11-11] MEDS: SEVELAMER CARBONATE 800 MG TABLET. PO SCH ×3 (07:49→16:34)
[2016-11-11] MEDS: DOCUSATE SODIUM 100 MG CAPSULE. PO SCH (07:50)
[2016-11-11] MEDS: HYDROCODONE/APAP 7.5/325MG TABLET. PO PRN ×2 (07:51→15:51)
[2016-11-11] MEDS ORDERED: IV NORMAL SALINE 1000ML BAG 1,000 ML IV PRN (07:51)
[2016-11-11] MEDS: GABAPENTIN 300 MG CAPSULE. PO SCH (07:51)
[2016-11-11] MEDS: CARVEDILOL 12.5 MG TABLET. PO SCH ×2 (07:55→16:34)
[2016-11-11] MEDS: POLYETHYLENE GLYCOL 3350 17 GM PACKET. PO SCH (07:56)
[2016-11-11] MEDS: HYDRALAZINE 50 MG TABLET PO SCH ×3 (07:56→16:34)
[2016-11-11] MEDS: AMLODIPINE BESYLATE 10 MG TABLET. PO SCH ×2 (07:56→12:05)
[2016-11-11] MEDS: LIDOCAINE (700MG/PATCH) PATCH. TD SCH (07:59)
[2016-11-11] MEDS ORDERED: DIALYSIS PATIENT. MC PRN (08:00)
[2016-11-11] MEDS ORDERED: LABETALOL 20 MG/4 ML DISP.SYRIN. IVP PRN (08:00)
[2016-11-11] MEDS ORDERED: DIPHENHYDRAMINE 50 MG/ML VIAL. IV PRN ×2 (08:00)
[2016-11-11] MEDS ORDERED: ALBUMIN HUMAN 25% 200 ML IV PRN (08:00)
[2016-11-11] MEDS ORDERED: CLONIDINE HCL 0.1 MG TABLET PO PRN (08:00)
[2016-11-11] MEDS ORDERED: ACETAMINOPHEN 500 MG TABLET PO PRN (08:00)
--- NOTE | 2016-11-11 10:34 | PDOC ---
G I PROGRESS NOTE Subjective In dialysis, sleeping. Did not awaken. Physical Exam No PE. Review of Relevant I have reviewed the following items hemal (where applicable) has been applied. Labs Laboratory Tests Test 11/09/16 11:50 11/10/16 10:30 11/11/16 06:00 Sodium Level 141mmol/L (136-145) 136mmol/L (136-145) Potassium Level 3.9mmol/L (3.5-5.1) 6.2mmol/L (3.5-5.1) Chloride Level 103mmol/L (98-107) 99mmol/L (98-107) Carbon Dioxide Level 30mmol/L (21-32) 23mmol/L (21-32) Anion Gap 8 (6-14) 14 (6-14) Blood Urea Nitrogen 55mg/dL (7-20) 102mg/dL (7-20) Creatinine 4.0mg/dL (0.6-1.0) 7.4mg/dL (0.6-1.0) Estimated GFR (Cockcroft-Gault) 14.1 6.9 Glucose Level 193mg/dL (70-99) 142mg/dL (70-99) Calcium Level 8.6mg/dL (8.5-10.1) 8.7mg/dL (8.5-10.1) White Blood Count 8.2x10^3/uL (4.0-11.0) Red Blood Count 2.72x10^6/uL (3.50-5.40) Hemoglobin 8.3g/dL (12.0-15.5) Hematocrit 24.5% (36.0-47.0) Mean Corpuscular Volume 90fL (79-100) Mean Corpuscular Hemoglobin 31pg (25-35) Mean Corpuscular Hemoglobin Concent 34g/dL (31-37) Red Cell Distribution Width 16.5% (11.5-14.5) Platelet Count 142x10^3/uL (140-400) Laboratory Tests Test 11/11/16 06:00 Sodium Level 136mmol/L (136-145) Potassium Level 6.2mmol/L (3.5-5.1) Chloride Level 99mmol/L (98-107) Carbon Dioxide Level 23mmol/L (21-32) Anion Gap 14 (6-14) Blood Urea Nitrogen 102mg/dL (7-20) Creatinine 7.4mg/dL (0.6-1.0) Estimated GFR (Cockcroft-Gault) 6.9 Glucose Level 142mg/dL (70-99) Calcium Level 8.7mg/dL (8.5-10.1) Microbiology 11/02/16 Blood Culture - Final, Complete NO GROWTH AFTER 5 DAYS 10/30/16 Urine Culture - Final, Complete 10/30/16 Urine Culture Result 1 (CHRISTOPH) - Final, Complete 10/30/16 Urine Culture Result 2 (CHRISTOPH) - Final, Complete Medications Current Medications Aspirin (Children'S Aspirin) 324 mg 1X ONCE PO Last administered on 10/30/16 17:05; Start 10/30/16 at 17:00; Stop 10/30/16 at 17:01; Status DC Alprazolam (Xanax) 0.5 mg PRN Q8HRS PRN PO ANXIETY / AGITATION Last administered on 11/06/16 21:19; Start 10/30/16 at 19:30; Stop 11/07/16 at 13:38 ; Status DC Amlodipine Besylate (Norvasc) 10 mg DAILY PO Last administered on 11/09/16 11: 52; Start 10/31/16 at 09:00; Stop 11/09/16 at 20:58; Status DC Calcium Acetate (Phoslo) 667 mg TIDWMEALS PO Last administered on 10/31/16 08: 43; Start 10/31/16 at 08:00; Stop 10/31/16 at 10:52; Status DC Carvedilol (Coreg) 12.5 mg BIDWMEALS PO Last administered on 11/08/16 17:01; Start 10/31/16 at 08:00; Stop 11/09/16 at 05:48; Status DC Divalproex Sodium (Depakote) 250 mg TID PO Last administered on 11/11/16 07:49 ; Start 10/30/16 at 21:00 Gabapentin (Neurontin) 300 mg DAILY PO Last administered on 11/11/16 07:51; Start 10/31/16 at 09:00 Hydralazine HCl (Apresoline) 50 mg QID PO Last administered on 11/10/16 22:11 ; Start 10/30/16 at 21:00 Lamotrigine (LaMICtal) 25 mg DAILY PO Last administered on 11/11/16 07:47; Start 10/31/16 at 09:00 Levothyroxine Sodium (Synthroid) 125 mcg DAILY07 PO Last administered on 06:25; Start 10/31/16 at 07:00 Nicotine (Nicoderm Cq 21mg) 1 patch DAILY TD Last administered on 11/11/16 07: 46; Start 10/31/16 at 09:00 Atorvastatin Calcium (Lipitor) 20 mg QHS PO Last administered on 11/10/16 22: 11; Start 10/30/16 at 22:00 Olanzapine (Zyprexa) 10 mg QHS PO Last administered on 11/10/16 22:12; Start 10/30/16 at 21:30 Non-Formulary Medication 1 tab PRN BID PRN PO Severe pain; Start 10/30/16 at 19 :30; Stop 10/30/16 at 19:34; Status DC Risperidone (Risperdal) 4 mg DAILY PO Last administered on 11/11/16 07:48; Start 10/31/16 at 09:00 Sertraline HCl (Zoloft) 200 mg DAILY PO Last administered on 11/11/16 07:48; Start 10/31/16 at 09:00 Sevelamer Carbonate (Renvela) 800 mg TIDWMEALS PO Last administered on 07:49; Start 10/31/16 at 08:00 Ondansetron HCl (Zofran) 4 mg PRN Q6HRS PRN IV NAUSEA/VOMITING Last administered on 11/09/16 02:13; Start 10/30/16 at 19:30; Stop 11/09/16 at 05:48 ; Status DC Acetaminophen/ Hydrocodone Bitart (Lortab 5/325) 1 tab PRN Q4HRS PRN PO MILD PAIN Last administered on 11/05/16 09:17; Start 10/30/16 at 19:30; Stop at 09:29; Status DC Acetaminophen (Tylenol) 650 mg PRN Q6HRS PRN PO MILD PAIN / TEMP; Start at 19:30; Status UNV Heparin Sodium (Porcine) 5,000 unit Q8HRS SQ Last administered on 11/02/16 14: 00; Start 10/30/16 at 22:00; Stop 11/04/16 at 08:43; Status DC Acetaminophen (Tylenol) 650 mg PRN Q6HRS PRN PO FEVER Last administered on 11/02 18:08; Start 10/30/16 at 19:45; Stop 11/09/16 at 05:48; Status DC Hydralazine HCl (Apresoline) 10 mg PRN Q5MIN PRN IVP ELEVATED BP, SEE COMMENTS ; Start 10/30/16 at 19:45 Pantoprazole Sodium (Protonix) 40 mg DAILYAC PO Last administered on 11/09/16 11:45; Start 10/31/16 at 07:30; Stop 11/10/16 at 05:40; Status DC Ferrous Sulfate 300 mg BIDWMEALS PO Last administered on 11/03/16 08:36; Start 10/31/16 at 10:00; Stop 11/03/16 at 10:32; Status DC Polyethylene Glycol 17 gm 17 gm DAILY PO Last administered on 11/05/16 08:31; Start 10/31/16 at 12:00 Magnesium Sulfate/ Dextrose 50 ml @ 25 mls/hr PRN DAILY PRN IV for Mag < 1.7 on am labs; Start 10/31/16 at 10:45 Iron Sucrose/ Sodium Chloride (Venofer/Iv Sodium Chloride 0.9% 100ml) 110 ml @ 55 mls/hr 3X/WEEK IV Last administered on 11/10/16 08:45; Start 11/01/16 at 09 :00; Stop 11/10/16 at 10:59; Status DC Polyethylene Glycol (miraLAX PACKET) 17 gm PRN DAILY PRN PO CONSTIPATION; Start 10/31/16 at 10:45 Calcium Acetate 2001 mg 2,001 mg TIDWMEALS PO Last administered on 11/11/16 07: 48; Start 10/31/16 at 12:00 Sodium Chloride 1,000 ml @ 1,000 mls/hr Q1H PRN IV hypotension; Start 10/31/16 at 16:46; Stop 10/31/16 at 22:45; Status DC Albumin Human (Albuminar) 200 ml @ 200 mls/hr 1X PRN PRN IV Hypotension; Start 10/31/16 at 17:00; Stop 10/31/16 at 22:59; Status DC Acetaminophen (Tylenol) 500 mg 1X PRN PRN PO MILD PAIN / TEMP; Start 10/31/16 at 17:00; Stop 11/01/16 at 16:59; Status DC Diphenhydramine HCl (Benadryl) 25 mg 1X PRN PRN IV ITCHING; Start 10/31/16 at 17:00; Stop 11/01/16 at 16:59; Status DC Diphenhydramine HCl 25 mg 25 mg 1X PRN PRN IV ITCHING; Start 10/31/16 at 17:00 ; Stop 11/01/16 at 16:59; Status DC Sodium Chloride (Iv Sodium Chloride 0.9% 1000ml Bag) 1,000 ml @ 400 mls/hr Q2H30M PRN IV PATENCY; Start 10/31/16 at 16:46; Stop 11/01/16 at 04:45; Status DC Info (PHARMACY MONITORING -- do not chart) 1 each PRN DAILY PRN MC SEE COMMENTS ; Start 10/31/16 at 17:00; Stop 11/04/16 at 13:14; Status DC Docusate Sodium (Colace) 100 mg DAILY PO Last administered on 11/05/16 08:32; Start 11/01/16 at 09:00; Stop 11/06/16 at 14:07; Status DC Fentanyl Citrate 50 mcg 50 mcg 1X ONCE IV Last administered on 11/01/16 11:14 ; Start 11/01/16 at 11:15; Stop 11/01/16 at 11:16; Status DC Sodium Chloride (Iv Sodium Chloride 0.9% 1000ml Bag) 1,000 ml @ 1,000 mls/hr Q1H PRN IV hypotension; Start 11/02/16 at 07:39; Stop 11/02/16 at 13:38; Status DC Acetaminophen (Tylenol) 500 mg 1X PRN PRN PO MILD PAIN / TEMP; Start 11/02/16 at 07:45; Stop 11/03/16 at 07:44; Status DC Diphenhydramine HCl (Benadryl) 25 mg 1X PRN PRN IV ITCHING Last administered on 11/02/16 15:55; Start 11/02/16 at 07:45; Stop 11/03/16 at 07:44; Status DC Diphenhydramine HCl (Benadryl) 25 mg 1X PRN PRN IV ITCHING Last administered on 11/02/16 08:41; Start 11/02/16 at 07:45; Stop 11/03/16 at 07:44; Status DC Labetalol HCl 10 mg 10 mg PRN Q1HR PRN IVP SBP > 180; Start 11/02/16 at 07:45; Stop 11/03/16 at 07:44; Status DC Sodium Chloride (Iv Sodium Chloride 0.9% 1000ml Bag) 1,000 ml @ 400 mls/hr Q2H30M PRN IV PATENCY; Start 11/02/16 at 07:39; Stop 11/02/16 at 19:38; Status DC Info (PHARMACY MONITORING -- do not chart) 1 each PRN DAILY PRN MC SEE COMMENTS ; Start 11/02/16 at 07:45; Stop 11/02/16 at 07:51; Status DC Calcium Carbonate/ Glycine (Tums) 500 mg PRN AFTMEALHC PRN PO INDIGESTION Last administered on 11/08/16 21:32; Start 11/02/16 at 15:15 Lidocaine (Lidoderm) 1 patch DAILY TD Last administered on 11/10/16 08:52; Start 11/02/16 at 15:45 Vancomycin HCl 1 each 1 each PRN DAILY PRN MC SEE COMMENTS Last administered on 11/04/16 14:19; Start 11/02/16 at 18:30; Stop 11/06/16 at 11:31; Status DC Piperacillin Sod/ Tazobactam Sod 2.25 gm/Sodium Chloride 50 ml @ 100 mls/hr Q8HRS IV Last administered on 11/06/16 05:54; Start 11/02/16 at 18:30; Stop at 11:31; Status DC Vancomycin HCl/ Sodium Chloride (Iv Sodium Chloride 0.9% 500ml Bag) 500 ml @ 250 mls/hr 1X ONCE IV Last administered on 11/02/16 21:12; Start 11/02/16 at 18:30; Stop 11/02/16 at 20:29; Status DC Vancomycin HCl 1 each 1X ONCE MC Last administered on 11/04/16 06:00; Start 11/04/16 at 06:00; Stop 11/04/16 at 06:01; Status DC Diphenhydramine HCl (Benadryl) 25 mg PRN Q6HRS PRN PO ITCHING Last administered on 11/04/16 22:08; Start 11/03/16 at 02:00 Darbepoetin Sourav 60 mcg 60 mcg WEEKLYHS SQ Last administered on 11/10/16 22:12 ; Start 11/03/16 at 21:00 Sodium Chloride 1,000 ml @ 1,000 mls/hr Q1H PRN IV hypotension; Start 11/04/16 at 06:23; Stop 11/04/16 at 12:22; Status DC Albumin Human (Albuminar) 200 ml @ 200 mls/hr 1X PRN PRN IV Hypotension; Start 11/04/16 at 06:30; Stop 11/04/16 at 12:29; Status DC Acetaminophen (Tylenol) 500 mg 1X PRN PRN PO MILD PAIN / TEMP; Start 11/04/16 at 06:30; Stop 11/05/16 at 06:29; Status DC Diphenhydramine HCl (Benadryl) 25 mg 1X PRN PRN IV ITCHING Last administered on 11/04/16 06:57; Start 11/04/16 at 06:30; Stop 11/05/16 at 06:29; Status DC Diphenhydramine HCl (Benadryl) 25 mg 1X PRN PRN IV ITCHING; Start 11/04/16 at 06:30; Stop 11/05/16 at 06:29; Status DC Labetalol HCl (Normodyne) 10 mg PRN Q1HR PRN IVP SBP > 180; Start 11/04/16 at 06:30; Stop 11/05/16 at 06:29; Status DC Clonidine HCl (Catapres) 0.1 mg 1X PRN PRN PO SBP > 180; Start 11/04/16 at 06: 30; Stop 11/05/16 at 06:29; Status DC Info 1 each 1 each PRN DAILY PRN MC SEE COMMENTS; Start 11/04/16 at 06:30 Vancomycin HCl/ Sodium Chloride (Iv Sodium Chloride 0.9% 100ml) 100 ml @ 100 mls/hr QTUTHSA IV Last administered on 11/04/16 16:08; Start 11/04/16 at 16:00 ; Stop 11/06/16 at 11:31; Status DC Acetaminophen/ Hydrocodone Bitart (Lortab 7.5/325) 1 tab PRN Q6HRS PRN PO PAIN Last administered on 11/11/16 07:51; Start 11/05/16 at 09:30 Morphine Sulfate 1 mg PRN Q4HRS PRN IV PAIN Last administered on 11/11/16 00:25 ; Start 11/05/16 at 09:30 Docusate Sodium (Colace) 100 mg DAILY PO Last administered on 11/11/16 07:50; Start 11/07/16 at 09:00 Alprazolam 0.5 mg 0.5 mg STK-MED ONCE .ROUTE Last administered on 11/07/16 20: 31; Start 11/06/16 at 20:33; Stop 11/06/16 at 20:34; Status DC Sodium Chloride 1,000 ml @ 1,000 mls/hr Q1H PRN IV hypotension; Start 11/07/16 at 08:23; Stop 11/07/16 at 14:22; Status DC Sodium Chloride (Iv Sodium Chloride 0.9% 1000ml Bag) 1,000 ml @ 400 mls/hr Q2H30M PRN IV PATENCY; Start 11/07/16 at 08:23; Stop 11/07/16 at 20:22; Status DC Info 1 each 1 each PRN DAILY PRN MC SEE COMMENTS; Start 11/07/16 at 08:30; Stop 11/07/16 at 13:47; Status DC Iron Sucrose 500 mg/Sodium Chloride 275 ml @ 78.571 mls/ hr 1X ONCE IV ; Start 11/07/16 at 09:00; Stop 11/07/16 at 12:29; Status DC Propofol (Diprivan) 20 ml @ As Directed STK-MED ONCE IV ; Start 11/07/16 at 13: 22; Stop 11/07/16 at 13:23; Status DC Alprazolam 0.5 mg 0.5 mg PRN Q8HRS PRN PO ANXIETY / AGITATION Last administered on 11/09/16 22:25; Start 11/07/16 at 13:45 Iron Sucrose/ Sodium Chloride (Venofer/Iv Sodium Chloride 0.9% 250ml) 275 ml @ 78.571 mls/ hr 1X ONCE IV Last administered on 11/08/16 06:30; Start at 06:30; Stop 11/08/16 at 09:59; Status DC Acetaminophen (Tylenol) 650 mg 1X PRN PRN PO PRN prior to blood transfusion; Start 11/08/16 at 09:15; Stop 11/09/16 at 09:14; Status DC Ondansetron HCl (Zofran) 4 mg STK-MED ONCE .ROUTE ; Start 11/09/16 at 02:07; Stop 11/09/16 at 02:08; Status DC Carvedilol (Coreg) 12.5 mg BIDWMEALS PO Last administered on 11/10/16 17:14; Start 11/09/16 at 08:00 Ondansetron HCl (Zofran) 4 mg PRN Q6HRS PRN IV NAUSEA/VOMITING Last administered on 11/11/16 07:52; Start 11/09/16 at 05:48 Acetaminophen 650 mg 650 mg PRN Q6HRS PRN PO FEVER; Start 11/09/16 at 05:48 Sodium Chloride (Iv Sodium Chloride 0.9% 1000ml Bag) 1,000 ml @ 1,000 mls/hr Q1H PRN IV hypotension; Start 11/09/16 at 07:34; Stop 11/09/16 at 13:33; Status DC Diphenhydramine HCl 25 mg 25 mg 1X PRN PRN IV ITCHING; Start 11/09/16 at 07:45 ; Stop 11/10/16 at 07:44; Status DC Sodium Chloride (Iv Sodium Chloride 0.9% 1000ml Bag) 1,000 ml @ 400 mls/hr Q2H30M PRN IV PATENCY; Start 11/09/16 at 07:34; Stop 11/09/16 at 19:33; Status DC Info (PHARMACY MONITORING -- do not chart) 1 each PRN DAILY PRN MC SEE COMMENTS ; Start 11/09/16 at 07:45; Status UNV Info (PHARMACY MONITORING -- do not chart) 1 each PRN DAILY PRN MC SEE COMMENTS ; Start 11/09/16 at 07:45; Status UNV Amlodipine Besylate (Norvasc) 10 mg STK-MED ONCE .ROUTE ; Start 11/09/16 at 08: 31; Stop 11/09/16 at 08:32; Status DC Aminocaproic Acid (Amicar) 1,000 mg Q4HRS PO Last administered on 11/11/16 07: 48; Start 11/09/16 at 12:00 Desmopressin Acetate (Ddavp) 20 mcg ONCE ONCE SQ Last administered on 11:33; Start 11/09/16 at 09:30; Stop 11/09/16 at 09:32; Status DC Amlodipine Besylate (Norvasc) 10 mg DAILY PO Last administered on 11/10/16 08: 48; Start 11/10/16 at 09:00 Pantoprazole Sodium (Protonix) 40 mg STK-MED ONCE PO ; Start 11/10/16 at 03:55; Stop 11/10/16 at 03:56; Status DC Pantoprazole Sodium (Protonix) 40 mg DAILYAC PO Last administered on 11/11/16 06:26; Start 11/10/16 at 05:40 Morphine Sulfate 1 mg 1X ONCE IV ; Start 11/11/16 at 04:30; Stop 11/11/16 at 04: 31; Status Cancel Gabapentin 300 mg 300 mg STK-MED ONCE PO ; Start 11/11/16 at 07:39; Stop 11/11/16 at 07:40; Status DC Sodium Chloride 1,000 ml @ 1,000 mls/hr Q1H PRN IV hypotension; Start 11/11/16 at 07:51; Stop 11/11/16 at 13:50 Albumin Human (Albuminar) 200 ml @ 200 mls/hr 1X PRN PRN IV Hypotension; Start 11/11/16 at 08:00; Stop 11/11/16 at 13:59 Acetaminophen (Tylenol) 500 mg 1X PRN PRN PO MILD PAIN / TEMP; Start 11/11/16 at 08:00; Stop 11/12/16 at 07:59 Diphenhydramine HCl (Benadryl) 25 mg 1X PRN PRN IV ITCHING; Start 11/11/16 at 08 :00; Stop 11/12/16 at 07:59 Diphenhydramine HCl (Benadryl) 25 mg 1X PRN PRN IV ITCHING; Start 11/11/16 at 08 :00; Stop 11/12/16 at 07:59 Labetalol HCl (Normodyne) 10 mg PRN Q1HR PRN IVP SBP > 180; Start 11/11/16 at 08 :00; Stop 11/12/16 at 07:59 Clonidine HCl (Catapres) 0.1 mg 1X PRN PRN PO SBP > 180; Start 11/11/16 at 08:00 ; Stop 11/12/16 at 07:59 Info (PHARMACY MONITORING -- do not chart) 1 each PRN DAILY PRN MC SEE COMMENTS ; Start 11/11/16 at 08:00 Active Scripts Active Percocet 5-325 Mg Tablet (Oxycodone/Acetaminophen) 1 Each Tablet 1 Tab PO QID PRN Alprazolam 0.5 Mg Tablet 0.5 Mg PO Q8HRS PRN Oxycodone Hcl 10 Mg Tablet 1 Tab PO PRN BID PRN Olanzapine Odt (Olanzapine) 10 Mg Tab.rapdis 10 Mg PO QHS Lamotrigine 25 Mg Tablet 25 Mg PO DAILY 30 Days Zoloft (Sertraline Hcl) 100 Mg Tablet 200 Mg PO DAILY Risperidone 4 Mg Tablet 4 Mg PO DAILY Zofran Odt (Ondansetron) 4 Mg Tab.rapdis 1 Tab SL Q8HRS Reported NICODERM CQ 21mg (Nicotine) 1 Each Patch.td24 1 Patch TP DAILY Depakote (Divalproex Sodium) 250 Mg Tablet.dr 250 Mg PO TID Amlodipine Besylate 10 Mg Tablet 10 Mg PO DAILY Hydralazine Hcl 50 Mg Tablet 50 Mg PO QID Renagel (Sevelamer Hcl) 800 Mg Tablet 800 Mg PO TIDWMEALS Simvastatin 40 Mg Tablet 40 Mg PO HS Levothyroxine Sodium 125 Mcg Tablet 125 Mcg PO DAILYAC Gabapentin 300 Mg Capsule 300 Mg PO DAILY Phoslo (Calcium Acetate) 667 Mg Capsule 667 Mg PO TIDWMEALS Carvedilol 12.5 Mg Tablet 12.5 Mg PO BIDWMEALS Vitals/I & O Vital Sign - Last 24 Hours 11/10/16 11/10/16 11/10/16 11/10/16 10:42 12:10 14:08 14:38 Temp 97.4 97.4 Pulse 71 71 Resp 14 16 B/P 160/85 160/85 Pulse Ox 100 100 O2 Delivery Room Air Room Air 11/10/16 11/10/16 11/10/16 11/10/16 17:13 17:14 19:00 20:00 Temp 98.1 98.1 Pulse 71 71 77 Resp 16 20 B/P 160/85 160/85 130/74 Pulse Ox 100 O2 Delivery Room Air Room Air 11/10/16 11/10/16 11/10/16 11/11/16 20:00 22:11 23:00 00:25 Temp 98.2 98.2 Pulse 77 73 Resp 16 20 B/P 130/74 129/72 Pulse Ox 93 O2 Delivery Room Air Room Air Nasal Cannula 11/11/16 11/11/16 11/11/16 11/11/16 00:55 07:00 07:51 07:55 Temp 98.0 98.0 Pulse 76 73 Resp 20 18 18 B/P 111/57 129/72 Pulse Ox 93 O2 Delivery Room Air Room Air 11/11/16 11/11/16 11/11/16 11/11/16 07:56 07:56 08:00 08:51 Pulse 73 73 B/P 129/72 129/72 Pulse Ox 93 O2 Delivery Room Air Room Air O2 Flow Rate 4.0 Intake and Output 11/10/16 11/10/16 11/11/16 15:00 23:00 07:00 Intake Total 800 ml Output Total 125 ml Balance -125 ml 800 ml Problem List Problems Medical Problems: (1) Abdominal pain Status: Acute (2) ESRD (end stage renal disease) Status: Acute Assessment Chronic GI bleeding/angiodysplasiae Plan of Care: Continue current Tx, Mgmt Plan of Care Note Follow counts on ROLA Cervantes MD Nov 11, 2016 10:34
[2016-11-11 11:00] VITALS: BP 139/70
[2016-11-11 11:28] LABS: BASO # 0.1 x10^3/uL (0.0-0.2); BASO % 1 % (0-3); EOS % 1 % (0-3); HEMATOCRIT 21.6 % (36.0-47.0); HEMOGLOBIN 7.1 g/dL (12.0-15.5); LYMPH # 1.4 x10^3/uL (1.0-4.8); LYMPH % 14 % (24-48); MEAN CORPUSCULAR HEMOGLOBIN 31 pg (25-35); MEAN CORPUSCULAR HGB CONC 33 g/dL (31-37); MEAN CORPUSCULAR VOLUME 94 fL (79-100); MONO % 17 % (0-9); NEUT % 67 % (31-73); PLATELET COUNT 130 x10^3/uL (140-400); RED CELL DISTRIBUTION WIDTH 16.4 % (11.5-14.5); WHITE BLOOD COUNT 10.2 x10^3/uL (4.0-11.0)
--- NOTE | 2016-11-11 11:39 | PDOC ---
SUBJECTIVE ROS ESRD HD Done earlier today CVS: no Orthopnea, no CP RESP: no SOB, no SAMPSON GI: no Nausea, no Vomiting : no Dysuria, no Urgency OBJECTIVE Vital Signs Vital Signs Date Time Temp Pulse Resp B/P Pulse Ox O2 Delivery O2 Flow Rate FiO2 11/11/16 10:45 14 Room Air 11/11/16 08:51 93 4.0 11/11/16 07:56 73 129/72 11/11/16 07:00 98.0 98.0 I & 0 Intake and Output 11/11/16 07:00 Intake Total 800 ml Output Total 125 ml Balance 675 ml Intake Oral 800 ml Output Urine Total 125 ml # Voids 4 PHYSICAL EXAM Physical Exam GEN: Awake, Oriented x 3, In no distress EYES: Vision Unchanged, Conjunctiva Normal EN: No EN Drainage, Mucous Membranes moist NECK: no JVD, no JVP, Supple, no Thyromegaly CVS: S1S2, + Murmur, No Gallop, No Rub,no Edema RESP: no Rales, no Rhonchi,no Acc. Muscle Use GI: BS + ve, NO Bruit, Non Tender, Non Distended : no CVA tenderness, no Suprapubic Tenderness DIAGNOSIS/ASSESSMENT Assessment & Plan ESRD: HD done earlier today. ^K - mostly due to dietary indiscretion. RN Reports pt eats food from the fridge whenever she wants recc ANEMIA; Aranesp as ordered, Transfuse with next HD as needed if hgb < 7 - ? Heme eval HTN: well controlle don Current BP meds as reviewed. See orders for changes. Discussed Plan of Care with pt at bedside COMMENT/RELEVANT DATA Meds Current Medications Medications (Trade) Dose Ordered Sig/Zayda Start Time Stop Time Status Last Admin Dose Admin Acetaminophen (Tylenol) 500 mg 1X PRN PRN 11/11/16 08:00 11/12/16 07:59 Acetaminophen/ Hydrocodone Bitart (Lortab 5/325) 1 tab PRN Q4HRS PRN 10/30/16 19:30 11/05/16 09:29 DC 11/05/16 09:17 1 TAB Acetaminophen/ Hydrocodone Bitart (Lortab 7.5/325) 1 tab PRN Q6HRS PRN 11/05/16 09:30 11/11/16 07:51 1 TAB Albumin Human (Albuminar) 200 ml @ 200 mls/hr 1X PRN PRN 11/11/16 08:00 11/11/16 13:59 Alprazolam (Xanax) 0.5 mg STK-MED ONCE 11/06/16 20:33 11/06/16 20:34 DC 11/07/16 20:31 0.5 MG Alprazolam 0.5 mg 0.5 mg PRN Q8HRS PRN 11/07/16 13:45 11/09/16 22:25 0.5 MG Aminocaproic Acid (Amicar) 1,000 mg Q4HRS 11/09/16 12:00 11/11/16 07:48 1,000 MG Amlodipine Besylate (Norvasc) 10 mg DAILY 11/10/16 09:00 11/10/16 08:48 10 MG Aspirin (Children'S Aspirin) 324 mg 1X ONCE 10/30/16 17:00 10/30/16 17:01 DC 10/30/16 17:05 324 MG Atorvastatin Calcium (Lipitor) 20 mg QHS 10/30/16 22:00 11/10/16 22:11 20 MG Calcium Acetate (Phoslo) 2,001 mg TIDWMEALS 10/31/16 12:00 11/11/16 07:48 2,001 MG Calcium Carbonate/ Glycine (Tums) 500 mg PRN AFTMEALHC PRN 11/02/16 15:15 11/08/16 21:32 500 MG Carvedilol (Coreg) 12.5 mg BIDWMEALS 11/09/16 08:00 11/10/16 17:14 12.5 MG Clonidine HCl (Catapres) 0.1 mg 1X PRN PRN 11/11/16 08:00 11/12/16 07:59 Clonidine HCl 0.1 mg 0.1 mg 1X PRN PRN 11/04/16 06:30 11/05/16 06:29 DC Darbepoetin Sourav (Aranesp) 60 mcg WEEKLYHS 11/03/16 21:00 11/10/16 22:12 60 MCG Desmopressin Acetate (Ddavp) 20 mcg ONCE ONCE 11/09/16 09:30 11/09/16 09:32 DC 11/09/16 11:33 20 MCG Diphenhydramine HCl (Benadryl) 25 mg 1X PRN PRN 11/11/16 08:00 11/12/16 07:59 Diphenhydramine HCl 25 mg 25 mg 1X PRN PRN 11/09/16 07:45 11/10/16 07:44 DC Divalproex Sodium (Depakote) 250 mg TID 10/30/16 21:00 11/11/16 07:49 250 MG Docusate Sodium (Colace) 100 mg DAILY 11/07/16 09:00 11/11/16 07:50 100 MG Fentanyl Citrate (Fentanyl 2ml Vial) 50 mcg 1X ONCE 11/01/16 11:15 11/01/16 11:16 DC 11/01/16 11:14 50 MCG Ferrous Sulfate 300 mg BIDWMEALS 10/31/16 10:00 11/03/16 10:32 DC 11/03/16 08:36 300 MG Gabapentin (Neurontin) 300 mg DAILY 10/31/16 09:00 11/11/16 07:51 300 MG Gabapentin 300 mg 300 mg STK-MED ONCE 11/11/16 07:39 11/11/16 07:40 DC Heparin Sodium (Porcine) 5,000 unit Q8HRS 10/30/16 22:00 11/04/16 08:43 DC 11/02/16 14:00 5,000 UNIT Hydralazine HCl (Apresoline) 10 mg PRN Q5MIN PRN 10/30/16 19:45 Info (PHARMACY MONITORING -- do not chart) 1 each PRN DAILY PRN 11/11/16 08:00 Info 1 each 1 each PRN DAILY PRN 11/07/16 08:30 11/07/16 13:47 DC Iron Sucrose 500 mg/Sodium Chloride 275 ml @ 78.571 mls/ hr 1X ONCE 11/07/16 09:00 11/07/16 12:29 DC Iron Sucrose/ Sodium Chloride (Venofer/Iv Sodium Chloride 0.9% 100ml) 110 ml @ 55 mls/hr 3X/WEEK 11/01/16 09:00 11/10/16 10:59 DC 11/10/16 08:45 55 MLS/HR Iron Sucrose/ Sodium Chloride (Venofer/Iv Sodium Chloride 0.9% 250ml) 275 ml @ 78.571 mls/ hr 1X ONCE 11/08/16 06:30 11/08/16 09:59 DC 11/08/16 06:30 78.571 MLS/HR Labetalol HCl (Normodyne) 10 mg PRN Q1HR PRN 11/11/16 08:00 11/12/16 07:59 Lamotrigine (LaMICtal) 25 mg DAILY 10/31/16 09:00 11/11/16 07:47 25 MG Levothyroxine Sodium (Synthroid) 125 mcg DAILY07 10/31/16 07:00 11/11/16 06:25 125 MCG Lidocaine (Lidoderm) 1 patch DAILY 11/02/16 15:45 11/10/16 08:52 1 PATCH Magnesium Sulfate/ Dextrose 50 ml @ 25 mls/hr PRN DAILY PRN 10/31/16 10:45 Morphine Sulfate 1 mg 1X ONCE 11/11/16 04:30 11/11/16 04:31 Cancel Nicotine (Nicoderm Cq 21mg) 1 patch DAILY 10/31/16 09:00 11/11/16 07:46 1 PATCH Non-Formulary Medication 1 tab PRN BID PRN 10/30/16 19:30 10/30/16 19:34 DC Olanzapine (Zyprexa) 10 mg QHS 10/30/16 21:30 11/10/16 22:12 10 MG Ondansetron HCl (Zofran) 4 mg PRN Q6HRS PRN 11/09/16 05:48 11/11/16 07:52 4 MG Pantoprazole Sodium (Protonix) 40 mg DAILYAC 11/10/16 05:40 11/11/16 06:26 40 MG Piperacillin Sod/ Tazobactam Sod 2.25 gm/Sodium Chloride 50 ml @ 100 mls/hr Q8HRS 11/02/16 18:30 11/06/16 11:31 DC 11/06/16 05:54 100 MLS/HR Polyethylene Glycol (miraLAX PACKET) 17 gm PRN DAILY PRN 10/31/16 10:45 Polyethylene Glycol 17 gm 17 gm DAILY 10/31/16 12:00 11/05/16 08:31 17 GM Propofol (Diprivan) 20 ml @ As Directed STK-MED ONCE 11/07/16 13:22 11/07/16 13:23 DC Risperidone (Risperdal) 4 mg DAILY 10/31/16 09:00 11/11/16 07:48 4 MG Sertraline HCl (Zoloft) 200 mg DAILY 10/31/16 09:00 11/11/16 07:48 200 MG Sevelamer Carbonate (Renvela) 800 mg TIDWMEALS 10/31/16 08:00 11/11/16 07:49 800 MG Sodium Chloride 1,000 ml @ 1,000 mls/hr Q1H PRN 11/11/16 07:51 11/11/16 13:50 Sodium Chloride (Iv Sodium Chloride 0.9% 1000ml Bag) 1,000 ml @ 400 mls/hr Q2H30M PRN 11/09/16 07:34 11/09/16 19:33 DC Vancomycin HCl 1 each 1X ONCE 11/04/16 06:00 11/04/16 06:01 DC 11/04/16 06:00 1 EACH Vancomycin HCl 1 each 1 each PRN DAILY PRN 11/02/16 18:30 11/06/16 11:31 DC 11/04/16 14:19 1 EACH Vancomycin HCl/ Sodium Chloride (Iv Sodium Chloride 0.9% 100ml) 100 ml @ 100 mls/hr QTUTHSA 11/04/16 16:00 11/06/16 11:31 DC 11/04/16 16:08 100 MLS/HR Vancomycin HCl/ Sodium Chloride (Iv Sodium Chloride 0.9% 500ml Bag) 500 ml @ 250 mls/hr 1X ONCE 11/02/16 18:30 11/02/16 20:29 DC 11/02/16 21:12 250 MLS/HR Lab Laboratory Tests Test 11/11/16 06:00 Sodium Level 136mmol/L (136-145) Potassium Level 6.2mmol/L (3.5-5.1) Chloride Level 99mmol/L (98-107) Carbon Dioxide Level 23mmol/L (21-32) Anion Gap 14 (6-14) Blood Urea Nitrogen 102mg/dL (7-20) Creatinine 7.4mg/dL (0.6-1.0) Estimated GFR (Cockcroft-Gault) 6.9 Glucose Level 142mg/dL (70-99) Calcium Level 8.7mg/dL (8.5-10.1) SHYANNE TYLER MD Nov 11, 2016 11:39
[2016-11-11] MEDS ORDERED: DESMOPRESSIN 4 MCG/ML AMPUL. SQ ONE (12:00)
--- NOTE | 2016-11-11 12:04 | PDOC ---
Subjective: Subjective: Heme f/u- Anemia Pt with continued melena, loose stools. CP yesterday, none now. No SOB. Occasional dizziness/ near syncope. Objective: Vital Signs: Vital Signs Date Time Temp Pulse Resp B/P Pulse Ox O2 Delivery O2 Flow Rate FiO2 11/11/16 10:45 14 Room Air 11/11/16 08:51 93 4.0 11/11/16 07:56 73 129/72 11/11/16 07:00 98.0 98.0 Physical Exam: Heart: Regular rate Extremities: No edema General: Alert, Oriented X3, Cooperative, No acute distress Lungs: Clear to auscultation, Normal air movement Psych/Mental Status: Mental status NL, Mood NL Labs/Imagin.3 -->7.1 today BMP noted- s/p HD this AM Assessment/Plan A/P: 1. Multifactorial acute on chronic anemia with iron deficiency anemia from GI bleed, anemia of chronic kidney disease, untreated Hep C. S/p Venofer 1000 mg bolus with 200 mg 3xwk with HD 2. Chronic GI bleeding, angiodysplasia s/p EGD 11/07. Hgb dropping again. 3. Mild thrombocytopenia. Quantitatively normal, but could have some qualitative defect with uremia. 4. End-stage renal disease, on dialysis. HD today. Plan: - Daily CBC - Continue amicar. - Redose DDAVP today given uremia. Received HD this AM. - Continue aranesp, Venofer with HD - Transfuse for hgb < 7 - If does not stabilize this weekend, consider surgery consult. No other heme options to control ongoing GI bleeding. CLIFFORD LOUISE DO Nov 11, 2016 12:04
[2016-11-11] MEDS ORDERED: DESMOPRESSIN IV SCH (13:00)
[2016-11-11] MEDS ORDERED: NORMAL SALINE IV SCH (13:00)
[2016-11-11 14:58] VITALS: BP 144/66
[2016-11-11 16:34] VITALS: BP 144/66
--- NOTE | 2016-11-11 17:28 | PDOC ---
PROGRESS NOTES Chief Complaint Chief Complaint anemia, recurrent ASSESSMENT AND PLAN: 1. Abdominal pain: acute on chronic. resolved. 2. GIB: ongoing. required mult transfusions. though to be 2/2 SB angiodysplsia. no nonsurgical options, save for amicar, DDAVP as per Heme consult 3. Anemia: GIB + baseline ESRD anemia. transfusions and EPO, iron 4. ESRD: on HD T// 5. DM2: well controlled 6. Hypothyroidism 7. HTN, HLD 8. Hepatitis C untreated. 9. Hx multisubstance Abuse 10. Chronic back and hip pain 11. Schizophrenia, hx suicidal ideation: has case reviewer at [facility] 12. Non compliance 13. Homelessness 14. Dispo: [facility] working on placement, poss Mon. H/H tenuous. pt wants to leave so she can smoke. " i'll come back if it gets worse" d/w her risk of severe bleed. prefers to go anyway. Vitals Vitals Vital Signs Date Time Temp Pulse Resp B/P Pulse Ox O2 Delivery O2 Flow Rate FiO2 11/11/16 16:34 70 144/66 11/11/16 16:32 96 Room Air 4.0 11/11/16 14:58 98.1 16 98.1 Physical Exam General: Alert, Oriented X3, Cooperative, No acute distress Heart: Regular rate Lungs: Clear Abdomen: Normal bowel sounds, Soft, No tenderness Extremities: No edema Skin: No rashes Labs LABS Laboratory Tests Test 11/11/16 06:00 White Blood Count 10.2x10^3/uL (4.0-11.0) Red Blood Count 2.30x10^6/uL (3.50-5.40) Hemoglobin 7.1g/dL (12.0-15.5) Hematocrit 21.6% (36.0-47.0) Mean Corpuscular Volume 94fL (79-100) Mean Corpuscular Hemoglobin 31pg (25-35) Mean Corpuscular Hemoglobin Concent 33g/dL (31-37) Red Cell Distribution Width 16.4% (11.5-14.5) Platelet Count 130x10^3/uL (140-400) Neutrophils (%) (Auto) 67% (31-73) Lymphocytes (%) (Auto) 14% (24-48) Monocytes (%) (Auto) 17% (0-9) Eosinophils (%) (Auto) 1% (0-3) Basophils (%) (Auto) 1% (0-3) Neutrophils # (Auto) 6.8x10^3uL (1.8-7.7) Lymphocytes # (Auto) 1.4x10^3/uL (1.0-4.8) Monocytes # (Auto) 1.8x10^3/uL (0.0-1.1) Eosinophils # (Auto) 0.1x10^3/uL (0.0-0.7) Basophils # (Auto) 0.1x10^3/uL (0.0-0.2) Sodium Level 136mmol/L (136-145) Potassium Level 6.2mmol/L (3.5-5.1) Chloride Level 99mmol/L (98-107) Carbon Dioxide Level 23mmol/L (21-32) Anion Gap 14 (6-14) Blood Urea Nitrogen 102mg/dL (7-20) Creatinine 7.4mg/dL (0.6-1.0) Estimated GFR (Cockcroft-Gault) 6.9 Glucose Level 142mg/dL (70-99) Calcium Level 8.7mg/dL (8.5-10.1) Review of Systems Review of Systems no pain, no BM. eating ok, no N/V Comment Review of Relevant I have reviewed the following items hemal (where applicable) has been applied. Labs Laboratory Tests Test 11/10/16 10:30 11/11/16 06:00 White Blood Count 8.2x10^3/uL (4.0-11.0) 10.2x10^3/uL (4.0-11.0) Red Blood Count 2.72x10^6/uL (3.50-5.40) 2.30x10^6/uL (3.50-5.40) Hemoglobin 8.3g/dL (12.0-15.5) 7.1g/dL (12.0-15.5) Hematocrit 24.5% (36.0-47.0) 21.6% (36.0-47.0) Mean Corpuscular Volume 90fL (79-100) 94fL (79-100) Mean Corpuscular Hemoglobin 31pg (25-35) 31pg (25-35) Mean Corpuscular Hemoglobin Concent 34g/dL (31-37) 33g/dL (31-37) Red Cell Distribution Width 16.5% (11.5-14.5) 16.4% (11.5-14.5) Platelet Count 142x10^3/uL (140-400) 130x10^3/uL (140-400) Neutrophils (%) (Auto) 67% (31-73) Lymphocytes (%) (Auto) 14% (24-48) Monocytes (%) (Auto) 17% (0-9) Eosinophils (%) (Auto) 1% (0-3) Basophils (%) (Auto) 1% (0-3) Neutrophils # (Auto) 6.8x10^3uL (1.8-7.7) Lymphocytes # (Auto) 1.4x10^3/uL (1.0-4.8) Monocytes # (Auto) 1.8x10^3/uL (0.0-1.1) Eosinophils # (Auto) 0.1x10^3/uL (0.0-0.7) Basophils # (Auto) 0.1x10^3/uL (0.0-0.2) Sodium Level 136mmol/L (136-145) Potassium Level 6.2mmol/L (3.5-5.1) Chloride Level 99mmol/L (98-107) Carbon Dioxide Level 23mmol/L (21-32) Anion Gap 14 (6-14) Blood Urea Nitrogen 102mg/dL (7-20) Creatinine 7.4mg/dL (0.6-1.0) Estimated GFR (Cockcroft-Gault) 6.9 Glucose Level 142mg/dL (70-99) Calcium Level 8.7mg/dL (8.5-10.1) Laboratory Tests Test 11/11/16 06:00 White Blood Count 10.2x10^3/uL (4.0-11.0) Red Blood Count 2.30x10^6/uL (3.50-5.40) Hemoglobin 7.1g/dL (12.0-15.5) Hematocrit 21.6% (36.0-47.0) Mean Corpuscular Volume 94fL (79-100) Mean Corpuscular Hemoglobin 31pg (25-35) Mean Corpuscular Hemoglobin Concent 33g/dL (31-37) Red Cell Distribution Width 16.4% (11.5-14.5) Platelet Count 130x10^3/uL (140-400) Neutrophils (%) (Auto) 67% (31-73) Lymphocytes (%) (Auto) 14% (24-48) Monocytes (%) (Auto) 17% (0-9) Eosinophils (%) (Auto) 1% (0-3) Basophils (%) (Auto) 1% (0-3) Neutrophils # (Auto) 6.8x10^3uL (1.8-7.7) Lymphocytes # (Auto) 1.4x10^3/uL (1.0-4.8) Monocytes # (Auto) 1.8x10^3/uL (0.0-1.1) Eosinophils # (Auto) 0.1x10^3/uL (0.0-0.7) Basophils # (Auto) 0.1x10^3/uL (0.0-0.2) Sodium Level 136mmol/L (136-145) Potassium Level 6.2mmol/L (3.5-5.1) Chloride Level 99mmol/L (98-107) Carbon Dioxide Level 23mmol/L (21-32) Anion Gap 14 (6-14) Blood Urea Nitrogen 102mg/dL (7-20) Creatinine 7.4mg/dL (0.6-1.0) Estimated GFR (Cockcroft-Gault) 6.9 Glucose Level 142mg/dL (70-99) Calcium Level 8.7mg/dL (8.5-10.1) Microbiology 11/02/16 Blood Culture - Final, Complete NO GROWTH AFTER 5 DAYS 10/30/16 Urine Culture - Final, Complete 10/30/16 Urine Culture Result 1 (CHRISTOPH) - Final, Complete 10/30/16 Urine Culture Result 2 (CHRISTOPH) - Final, Complete Medications Current Medications Aspirin (Children'S Aspirin) 324 mg 1X ONCE PO Last administered on 10/30/16t 17:05; Start 10/30/16 at 17:00; Stop 10/30/16 at 17:01; Status DC Alprazolam (Xanax) 0.5 mg PRN Q8HRS PRN PO ANXIETY / AGITATION Last administered on 11/06/16 21:19; Start 10/30/16 at 19:30; Stop 11/07/16 at 13:38 ; Status DC Amlodipine Besylate (Norvasc) 10 mg DAILY PO Last administered on 11/09/16 11: 52; Start 10/31/16 at 09:00; Stop 11/09/16 at 20:58; Status DC Calcium Acetate (Phoslo) 667 mg TIDWMEALS PO Last administered on 10/31/16 08: 43; Start 10/31/16 at 08:00; Stop 10/31/16 at 10:52; Status DC Carvedilol (Coreg) 12.5 mg BIDWMEALS PO Last administered on 11/08/16 17:01; Start 10/31/16 at 08:00; Stop 11/09/16 at 05:48; Status DC Divalproex Sodium (Depakote) 250 mg TID PO Last administered on 11/11/16 14:29 ; Start 10/30/16 at 21:00 Gabapentin (Neurontin) 300 mg DAILY PO Last administered on 11/11/16 07:51; Start 10/31/16 at 09:00; Stop 11/11/16 at 13:14; Status DC Hydralazine HCl (Apresoline) 50 mg QID PO Last administered on 11/11/16 16:34; Start 10/30/16 at 21:00 Lamotrigine (LaMICtal) 25 mg DAILY PO Last administered on 11/11/16 07:47; Start 10/31/16 at 09:00 Levothyroxine Sodium (Synthroid) 125 mcg DAILY07 PO Last administered on 06:25; Start 10/31/16 at 07:00 Nicotine (Nicoderm Cq 21mg) 1 patch DAILY TD Last administered on 11/11/16 07: 46; Start 10/31/16 at 09:00 Atorvastatin Calcium (Lipitor) 20 mg QHS PO Last administered on 11/10/16 22: 11; Start 10/30/16 at 22:00 Olanzapine (Zyprexa) 10 mg QHS PO Last administered on 11/10/16 22:12; Start 10/30/16 at 21:30 Non-Formulary Medication 1 tab PRN BID PRN PO Severe pain; Start 10/30/16 at 19 :30; Stop 10/30/16 at 19:34; Status DC Risperidone (Risperdal) 4 mg DAILY PO Last administered on 11/11/16 07:48; Start 10/31/16 at 09:00 Sertraline HCl (Zoloft) 200 mg DAILY PO Last administered on 11/11/16 07:48; Start 10/31/16 at 09:00 Sevelamer Carbonate (Renvela) 800 mg TIDWMEALS PO Last administered on 16:34; Start 10/31/16 at 08:00 Ondansetron HCl (Zofran) 4 mg PRN Q6HRS PRN IV NAUSEA/VOMITING Last administered on 11/09/16 02:13; Start 10/30/16 at 19:30; Stop 11/09/16 at 05:48 ; Status DC Acetaminophen/ Hydrocodone Bitart (Lortab 5/325) 1 tab PRN Q4HRS PRN PO MILD PAIN Last administered on 11/05/16 09:17; Start 10/30/16 at 19:30; Stop at 09:29; Status DC Acetaminophen (Tylenol) 650 mg PRN Q6HRS PRN PO MILD PAIN / TEMP; Start at 19:30; Status UNV Heparin Sodium (Porcine) 5,000 unit Q8HRS SQ Last administered on 11/02/16 14: 00; Start 10/30/16 at 22:00; Stop 11/04/16 at 08:43; Status DC Acetaminophen (Tylenol) 650 mg PRN Q6HRS PRN PO FEVER Last administered on 11/02 18:08; Start 10/30/16 at 19:45; Stop 11/09/16 at 05:48; Status DC Hydralazine HCl (Apresoline) 10 mg PRN Q5MIN PRN IVP ELEVATED BP, SEE COMMENTS ; Start 10/30/16 at 19:45 Pantoprazole Sodium (Protonix) 40 mg DAILYAC PO Last administered on 11/09/16 11:45; Start 10/31/16 at 07:30; Stop 11/10/16 at 05:40; Status DC Ferrous Sulfate 300 mg BIDWMEALS PO Last administered on 11/03/16 08:36; Start 10/31/16 at 10:00; Stop 11/03/16 at 10:32; Status DC Polyethylene Glycol 17 gm 17 gm DAILY PO Last administered on 11/05/16 08:31; Start 10/31/16 at 12:00 Magnesium Sulfate/ Dextrose 50 ml @ 25 mls/hr PRN DAILY PRN IV for Mag < 1.7 on am labs; Start 10/31/16 at 10:45 Iron Sucrose/ Sodium Chloride (Venofer/Iv Sodium Chloride 0.9% 100ml) 110 ml @ 55 mls/hr 3X/WEEK IV Last administered on 11/10/16 08:45; Start 11/01/16 at 09 :00; Stop 11/10/16 at 10:59; Status DC Polyethylene Glycol (miraLAX PACKET) 17 gm PRN DAILY PRN PO CONSTIPATION; Start 10/31/16 at 10:45 Calcium Acetate 2001 mg 2,001 mg TIDWMEALS PO Last administered on 11/11/16 16: 33; Start 10/31/16 at 12:00 Sodium Chloride 1,000 ml @ 1,000 mls/hr Q1H PRN IV hypotension; Start 10/31/16 at 16:46; Stop 10/31/16 at 22:45; Status DC Albumin Human (Albuminar) 200 ml @ 200 mls/hr 1X PRN PRN IV Hypotension; Start 10/31/16 at 17:00; Stop 10/31/16 at 22:59; Status DC Acetaminophen (Tylenol) 500 mg 1X PRN PRN PO MILD PAIN / TEMP; Start 10/31/16 at 17:00; Stop 11/01/16 at 16:59; Status DC Diphenhydramine HCl (Benadryl) 25 mg 1X PRN PRN IV ITCHING; Start 10/31/16 at 17:00; Stop 11/01/16 at 16:59; Status DC Diphenhydramine HCl 25 mg 25 mg 1X PRN PRN IV ITCHING; Start 10/31/16 at 17:00 ; Stop 11/01/16 at 16:59; Status DC Sodium Chloride (Iv Sodium Chloride 0.9% 1000ml Bag) 1,000 ml @ 400 mls/hr Q2H30M PRN IV PATENCY; Start 10/31/16 at 16:46; Stop 11/01/16 at 04:45; Status DC Info (PHARMACY MONITORING -- do not chart) 1 each PRN DAILY PRN MC SEE COMMENTS ; Start 10/31/16 at 17:00; Stop 11/04/16 at 13:14; Status DC Docusate Sodium (Colace) 100 mg DAILY PO Last administered on 11/05/16 08:32; Start 11/01/16 at 09:00; Stop 11/06/16 at 14:07; Status DC Fentanyl Citrate 50 mcg 50 mcg 1X ONCE IV Last administered on 11/01/16 11:14 ; Start 11/01/16 at 11:15; Stop 11/01/16 at 11:16; Status DC Sodium Chloride (Iv Sodium Chloride 0.9% 1000ml Bag) 1,000 ml @ 1,000 mls/hr Q1H PRN IV hypotension; Start 11/02/16 at 07:39; Stop 11/02/16 at 13:38; Status DC Acetaminophen (Tylenol) 500 mg 1X PRN PRN PO MILD PAIN / TEMP; Start 11/02/16 at 07:45; Stop 11/03/16 at 07:44; Status DC Diphenhydramine HCl (Benadryl) 25 mg 1X PRN PRN IV ITCHING Last administered on 11/02/16 15:55; Start 11/02/16 at 07:45; Stop 11/03/16 at 07:44; Status DC Diphenhydramine HCl (Benadryl) 25 mg 1X PRN PRN IV ITCHING Last administered on 11/02/16 08:41; Start 11/02/16 at 07:45; Stop 11/03/16 at 07:44; Status DC Labetalol HCl 10 mg 10 mg PRN Q1HR PRN IVP SBP > 180; Start 11/02/16 at 07:45; Stop 11/03/16 at 07:44; Status DC Sodium Chloride (Iv Sodium Chloride 0.9% 1000ml Bag) 1,000 ml @ 400 mls/hr Q2H30M PRN IV PATENCY; Start 11/02/16 at 07:39; Stop 11/02/16 at 19:38; Status DC Info (PHARMACY MONITORING -- do not chart) 1 each PRN DAILY PRN MC SEE COMMENTS ; Start 11/02/16 at 07:45; Stop 11/02/16 at 07:51; Status DC Calcium Carbonate/ Glycine (Tums) 500 mg PRN AFTMEALHC PRN PO INDIGESTION Last administered on 11/08/16 21:32; Start 11/02/16 at 15:15 Lidocaine (Lidoderm) 1 patch DAILY TD Last administered on 11/10/16 08:52; Start 11/02/16 at 15:45 Vancomycin HCl 1 each 1 each PRN DAILY PRN MC SEE COMMENTS Last administered on 11/04/16 14:19; Start 11/02/16 at 18:30; Stop 11/06/16 at 11:31; Status DC Piperacillin Sod/ Tazobactam Sod 2.25 gm/Sodium Chloride 50 ml @ 100 mls/hr Q8HRS IV Last administered on 11/06/16 05:54; Start 11/02/16 at 18:30; Stop at 11:31; Status DC Vancomycin HCl/ Sodium Chloride (Iv Sodium Chloride 0.9% 500ml Bag) 500 ml @ 250 mls/hr 1X ONCE IV Last administered on 11/02/16 21:12; Start 11/02/16 at 18:30; Stop 11/02/16 at 20:29; Status DC Vancomycin HCl 1 each 1X ONCE MC Last administered on 11/04/16 06:00; Start 11/04/16 at 06:00; Stop 11/04/16 at 06:01; Status DC Diphenhydramine HCl (Benadryl) 25 mg PRN Q6HRS PRN PO ITCHING Last administered on 11/04/16 22:08; Start 11/03/16 at 02:00 Darbepoetin Sourav 60 mcg 60 mcg WEEKLYHS SQ Last administered on 11/10/16 22:12 ; Start 11/03/16 at 21:00 Sodium Chloride 1,000 ml @ 1,000 mls/hr Q1H PRN IV hypotension; Start 11/04/16 at 06:23; Stop 11/04/16 at 12:22; Status DC Albumin Human (Albuminar) 200 ml @ 200 mls/hr 1X PRN PRN IV Hypotension; Start 11/04/16 at 06:30; Stop 11/04/16 at 12:29; Status DC Acetaminophen (Tylenol) 500 mg 1X PRN PRN PO MILD PAIN / TEMP; Start 11/04/16 at 06:30; Stop 11/05/16 at 06:29; Status DC Diphenhydramine HCl (Benadryl) 25 mg 1X PRN PRN IV ITCHING Last administered on 11/04/16 06:57; Start 11/04/16 at 06:30; Stop 11/05/16 at 06:29; Status DC Diphenhydramine HCl (Benadryl) 25 mg 1X PRN PRN IV ITCHING; Start 11/04/16 at 06:30; Stop 11/05/16 at 06:29; Status DC Labetalol HCl (Normodyne) 10 mg PRN Q1HR PRN IVP SBP > 180; Start 11/04/16 at 06:30; Stop 11/05/16 at 06:29; Status DC Clonidine HCl (Catapres) 0.1 mg 1X PRN PRN PO SBP > 180; Start 11/04/16 at 06: 30; Stop 11/05/16 at 06:29; Status DC Info 1 each 1 each PRN DAILY PRN MC SEE COMMENTS; Start 11/04/16 at 06:30 Vancomycin HCl/ Sodium Chloride (Iv Sodium Chloride 0.9% 100ml) 100 ml @ 100 mls/hr QTUTHSA IV Last administered on 11/04/16 16:08; Start 11/04/16 at 16:00 ; Stop 11/06/16 at 11:31; Status DC Acetaminophen/ Hydrocodone Bitart (Lortab 7.5/325) 1 tab PRN Q6HRS PRN PO PAIN Last administered on 11/11/16 15:51; Start 11/05/16 at 09:30 Morphine Sulfate 1 mg PRN Q4HRS PRN IV PAIN Last administered on 11/11/16 16:32 ; Start 11/05/16 at 09:30 Docusate Sodium (Colace) 100 mg DAILY PO Last administered on 11/11/16 07:50; Start 11/07/16 at 09:00 Alprazolam 0.5 mg 0.5 mg STK-MED ONCE .ROUTE Last administered on 11/07/16 20: 31; Start 11/06/16 at 20:33; Stop 11/06/16 at 20:34; Status DC Sodium Chloride 1,000 ml @ 1,000 mls/hr Q1H PRN IV hypotension; Start 11/07/16 at 08:23; Stop 11/07/16 at 14:22; Status DC Sodium Chloride (Iv Sodium Chloride 0.9% 1000ml Bag) 1,000 ml @ 400 mls/hr Q2H30M PRN IV PATENCY; Start 11/07/16 at 08:23; Stop 11/07/16 at 20:22; Status DC Info 1 each 1 each PRN DAILY PRN MC SEE COMMENTS; Start 11/07/16 at 08:30; Stop 11/07/16 at 13:47; Status DC Iron Sucrose 500 mg/Sodium Chloride 275 ml @ 78.571 mls/ hr 1X ONCE IV ; Start 11/07/16 at 09:00; Stop 11/07/16 at 12:29; Status DC Propofol (Diprivan) 20 ml @ As Directed STK-MED ONCE IV ; Start 11/07/16 at 13: 22; Stop 11/07/16 at 13:23; Status DC Alprazolam 0.5 mg 0.5 mg PRN Q8HRS PRN PO ANXIETY / AGITATION Last administered on 11/09/16 22:25; Start 11/07/16 at 13:45 Iron Sucrose/ Sodium Chloride (Venofer/Iv Sodium Chloride 0.9% 250ml) 275 ml @ 78.571 mls/ hr 1X ONCE IV Last administered on 11/08/16 06:30; Start at 06:30; Stop 11/08/16 at 09:59; Status DC Acetaminophen (Tylenol) 650 mg 1X PRN PRN PO PRN prior to blood transfusion; Start 11/08/16 at 09:15; Stop 11/09/16 at 09:14; Status DC Ondansetron HCl (Zofran) 4 mg STK-MED ONCE .ROUTE ; Start 11/09/16 at 02:07; Stop 11/09/16 at 02:08; Status DC Carvedilol (Coreg) 12.5 mg BIDWMEALS PO Last administered on 11/11/16 16:34; Start 11/09/16 at 08:00 Ondansetron HCl (Zofran) 4 mg PRN Q6HRS PRN IV NAUSEA/VOMITING Last administered on 11/11/16 07:52; Start 11/09/16 at 05:48 Acetaminophen 650 mg 650 mg PRN Q6HRS PRN PO FEVER; Start 11/09/16 at 05:48 Sodium Chloride (Iv Sodium Chloride 0.9% 1000ml Bag) 1,000 ml @ 1,000 mls/hr Q1H PRN IV hypotension; Start 11/09/16 at 07:34; Stop 11/09/16 at 13:33; Status DC Diphenhydramine HCl 25 mg 25 mg 1X PRN PRN IV ITCHING; Start 11/09/16 at 07:45 ; Stop 11/10/16 at 07:44; Status DC Sodium Chloride (Iv Sodium Chloride 0.9% 1000ml Bag) 1,000 ml @ 400 mls/hr Q2H30M PRN IV PATENCY; Start 11/09/16 at 07:34; Stop 11/09/16 at 19:33; Status DC Info (PHARMACY MONITORING -- do not chart) 1 each PRN DAILY PRN MC SEE COMMENTS ; Start 11/09/16 at 07:45; Status UNV Info (PHARMACY MONITORING -- do not chart) 1 each PRN DAILY PRN MC SEE COMMENTS ; Start 11/09/16 at 07:45; Status UNV Amlodipine Besylate (Norvasc) 10 mg STK-MED ONCE .ROUTE ; Start 11/09/16 at 08: 31; Stop 11/09/16 at 08:32; Status DC Aminocaproic Acid (Amicar) 1,000 mg Q4HRS PO Last administered on 11/11/16 15: 50; Start 11/09/16 at 12:00 Desmopressin Acetate (Ddavp) 20 mcg ONCE ONCE SQ Last administered on 11:33; Start 11/09/16 at 09:30; Stop 11/09/16 at 09:32; Status DC Amlodipine Besylate (Norvasc) 10 mg DAILY PO Last administered on 11/11/16 12: 05; Start 11/10/16 at 09:00 Pantoprazole Sodium (Protonix) 40 mg STK-MED ONCE PO ; Start 11/10/16 at 03:55; Stop 11/10/16 at 03:56; Status DC Pantoprazole Sodium (Protonix) 40 mg DAILYAC PO Last administered on 11/11/16t 06:26; Start 11/10/16 at 05:40 Morphine Sulfate 1 mg 1X ONCE IV ; Start 11/11/16 at 04:30; Stop 11/11/16 at 04: 31; Status Cancel Gabapentin 300 mg 300 mg STK-MED ONCE PO ; Start 11/11/16 at 07:39; Stop 11/11/16 at 07:40; Status DC Sodium Chloride 1,000 ml @ 1,000 mls/hr Q1H PRN IV hypotension; Start 11/11/16 at 07:51; Stop 11/11/16 at 13:50; Status DC Albumin Human (Albuminar) 200 ml @ 200 mls/hr 1X PRN PRN IV Hypotension; Start 11/11/16 at 08:00; Stop 11/11/16 at 13:59; Status DC Acetaminophen (Tylenol) 500 mg 1X PRN PRN PO MILD PAIN / TEMP; Start 11/11/16 at 08:00; Stop 11/12/16 at 07:59 Diphenhydramine HCl (Benadryl) 25 mg 1X PRN PRN IV ITCHING; Start 11/11/16 at 08 :00; Stop 11/12/16 at 07:59 Diphenhydramine HCl (Benadryl) 25 mg 1X PRN PRN IV ITCHING; Start 11/11/16 at 08 :00; Stop 11/12/16 at 07:59 Labetalol HCl (Normodyne) 10 mg PRN Q1HR PRN IVP SBP > 180; Start 11/11/16 at 08 :00; Stop 11/12/16 at 07:59 Clonidine HCl (Catapres) 0.1 mg 1X PRN PRN PO SBP > 180; Start 11/11/16 at 08:00 ; Stop 11/12/16 at 07:59 Info (PHARMACY MONITORING -- do not chart) 1 each PRN DAILY PRN MC SEE COMMENTS ; Start 11/11/16 at 08:00; Stop 11/11/16 at 12:01; Status DC Desmopressin Acetate 20 mcg 20 mcg ONCE ONCE SQ ; Start 11/11/16 at 12:00; Stop 11/11/16 at 12:01; Status UNV Desmopressin Acetate/Sodium Chloride (Ddavp/Iv Sodium Chloride 0.9% 100ml) 55 ml @ 110 mls/hr 1X IV ; Start 11/11/16 at 13:00; Stop 11/11/16 at 13:29; Status DC Gabapentin (Neurontin) 300 mg DAILY PO ; Start 11/12/16 at 09:00 Active Scripts Active Percocet 5-325 Mg Tablet (Oxycodone/Acetaminophen) 1 Each Tablet 1 Tab PO QID PRN Alprazolam 0.5 Mg Tablet 0.5 Mg PO Q8HRS PRN Oxycodone Hcl 10 Mg Tablet 1 Tab PO PRN BID PRN Olanzapine Odt (Olanzapine) 10 Mg Tab.rapdis 10 Mg PO QHS Lamotrigine 25 Mg Tablet 25 Mg PO DAILY 30 Days Zoloft (Sertraline Hcl) 100 Mg Tablet 200 Mg PO DAILY Risperidone 4 Mg Tablet 4 Mg PO DAILY Zofran Odt (Ondansetron) 4 Mg Tab.rapdis 1 Tab SL Q8HRS Reported NICODERM CQ 21mg (Nicotine) 1 Each Patch.td24 1 Patch TP DAILY Depakote (Divalproex Sodium) 250 Mg Tablet.dr 250 Mg PO TID Amlodipine Besylate 10 Mg Tablet 10 Mg PO DAILY Hydralazine Hcl 50 Mg Tablet 50 Mg PO QID Renagel (Sevelamer Hcl) 800 Mg Tablet 800 Mg PO TIDWMEALS Simvastatin 40 Mg Tablet 40 Mg PO HS Levothyroxine Sodium 125 Mcg Tablet 125 Mcg PO DAILYAC Gabapentin 300 Mg Capsule 300 Mg PO DAILY Phoslo (Calcium Acetate) 667 Mg Capsule 667 Mg PO TIDWMEALS Carvedilol 12.5 Mg Tablet 12.5 Mg PO BIDWMEALS Vitals/I & O Vital Sign - Last 24 Hours 11/10/16 11/10/16 11/10/16 11/10/16 17:13 17:14 19:00 20:00 Temp 98.1 98.1 Pulse 71 71 77 Resp 16 20 B/P 160/85 160/85 130/74 Pulse Ox 100 O2 Delivery Room Air Room Air 11/10/16 11/10/16 11/10/16 11/11/16 20:00 22:11 23:00 00:25 Temp 98.2 98.2 Pulse 77 73 Resp 16 20 B/P 130/74 129/72 Pulse Ox 93 O2 Delivery Room Air Room Air Nasal Cannula 11/11/16 11/11/16 11/11/16 11/11/16 00:55 07:00 07:51 07:55 Temp 98.0 98.0 Pulse 76 73 Resp 18 18 B/P 111/57 129/72 Pulse Ox 93 O2 Delivery Room Air Room Air 11/11/16 11/11/16 11/11/16 11/11/16 07:56 07:56 08:00 08:51 Pulse 73 73 B/P 129/72 129/72 Pulse Ox 93 O2 Delivery Room Air Room Air O2 Flow Rate 4.0 11/11/16 11/11/16 11/11/16 11/11/16 10:45 11:00 12:04 12:05 Temp 98.1 98.1 Pulse 71 73 73 Resp 14 16 B/P 139/70 129/72 129/72 Pulse Ox 98 O2 Delivery Room Air Room Air 11/11/16 11/11/16 11/11/16 11/11/16 12:59 14:58 15:51 16:32 Temp 98.1 98.1 Pulse 70 Resp 12 16 B/P 144/66 Pulse Ox 96 96 96 O2 Delivery Room Air Room Air Room Air O2 Flow Rate 4.0 4.0 11/11/16 11/11/16 16:34 16:34 Pulse 70 70 B/P 144/66 144/66 Intake and Output 11/10/16 11/10/16 11/11/16 15:00 23:00 07:00 Intake Total 800 ml Output Total 125 ml Balance -125 ml 800 ml WALT MALDONADO MD Nov 11, 2016 17:28
[2016-11-12] MEDS ORDERED: GABAPENTIN 300 MG CAPSULE. PO SCH (09:00)
--- NOTE | 2016-11-12 23:38 | DS ---
DATE OF DISCHARGE: 11/11/2016 CHIEF COMPLAINT: Anemia, recurrent. 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 She once again presented with significant anemia as well as abdominal pain. While the latter resolved, GI bleed was somewhat difficult to control. She received a total of in her hemoglobin. She was seen by GI as well as Hematology with treatments with DDAVP as well as Amicar. The patient had been advised to continue hospitalization for monitoring potentially further units of PRBC, the patient however insisted on going home on 11/11/2016. Other issues including end-stage renal disease, was treated with ongoing dialysis. Diabetes, hypertension, etc. remained well controlled. The patient unfortunately has difficulties outside of the hospital due to schizophrenia and lack of family support as well as having been in multiple facilities that now refused to take her back. She has a test case developer from [facility], who hopefully will be able to get in contact with her. DISCHARGE EXAMINATION: Please refer to note from same day. DISCHARGE DATE: 11/11/2016 DISCHARGE DISPOSITION: To home, AMA. DISCHARGE CONDITION: Tenuous. DISCHARGE MEDICATIONS: Please refer to MAR. DISCHARGE INSTRUCTIONS: The patient will follow up with her test case developer at [facility]. She will seek immediate medical help if she notices any further bleed. WALT MALDONADO MD DR: UR/nts JOB#: [id number] / [id number]
== END 2016-11-11 19:18 | disposition home or self-care (01) | DRG 377 ==
LOC: ER 14:44 → 5 NORTH 19:41 → OBSVTOIN 19:41
PROVIDERS: ADMIT Internal Medicine; ATTEND Internal Medicine
PROC: 30233N1 Transfusion of Nonautologous Red Blood Cells into Peripheral Vein, Percutaneous Approach (ICD-10-PCS; principal; 2016-11-07 13:30)
PROC: 0DJ08ZZ Inspection of Upper Intestinal Tract, Via Natural or Artificial Opening Endoscopic (ICD-10-PCS; principal; 2016-11-07 13:30)
DX: K55.21 Angiodysplasia of colon with hemorrhage (principal); N18.6 End stage renal disease; I13.11 Hypertensive heart and chronic kidney disease without heart failure, with stage 5 chronic kidney disease, or end stage renal disease; B19.20 Unspecified viral hepatitis C without hepatic coma; D64.9 Anemia, unspecified; D50.0 Iron deficiency anemia secondary to blood loss (chronic); D63.1 Anemia in chronic kidney disease; D69.6 Thrombocytopenia, unspecified; E03.9 Hypothyroidism, unspecified; E11.22 Type 2 diabetes mellitus with diabetic chronic kidney disease; E78.00 Pure hypercholesterolemia, unspecified; E78.5 Hyperlipidemia, unspecified; F17.210 Nicotine dependence, cigarettes, uncomplicated; F20.9 Schizophrenia, unspecified; F32.9 Major depressive disorder, single episode, unspecified; G89.29 Other chronic pain; I51.7 Cardiomegaly; K21.0 Gastro-esophageal reflux disease with esophagitis; K29.60 Other gastritis without bleeding; K31.9 Disease of stomach and duodenum, unspecified; K59.09 Other constipation; K64.8 Other hemorrhoids; M19.90 Unspecified osteoarthritis, unspecified site; Z59.0 Homelessness; Z85.42 Personal history of malignant neoplasm of other parts of uterus; Z87.11 Personal history of peptic ulcer disease; Z90.710 Acquired absence of both cervix and uterus; Z91.19 Patient's noncompliance with other medical treatment and regimen; Z99.2 Dependence on renal dialysis; F14.90 Cocaine use, unspecified, uncomplicated; Z76.5 Malingerer [conscious simulation]
CPT/HCPCS: 36415; 71010; 74176; 80048; 80069; 80076; 80202; 81001; 81025; 82274; 82607; 82728; 82746; 82947; 83010; 83020; 83540; 83550; 83605; 83690; 83735; 83880; 84443; 84484; 85007; 85018; 85027; 85045; 85384; 85610; 86850; 86870; 86880; 86900; 86901; 86920; 87040; 87086; 87641; 93005; J0881; J1200; J1756; J2270; J2405; J2543; J2597; J2704; J3010; J3370; J7040; J7050; P9016; Q0163; 99285-25; J7030

== ENCOUNTER 2016-12-07 15:19 | Inpatient (IN) | payer OTHER ==
[~2016-12-07] VITALS: Ht 162.6 cm; Wt 81.6 kg
[~2016-12-07 15:19] MED LIST changes: +OXYC-323 PO
[2016-12-07] MEDS ORDERED: HYDROcodone/APAP 5/325MG 1 TAB TABLET PO ONE (17:00)
--- NOTE | 2016-12-07 17:24 | ED.ADGEN ---
Past Medical History Past Medical History: Diabetes-Type II, High Cholesterol, Hypertension, Hypothyroid, Hepatitis, Renal Disease, Renal Failure, Schizophrenia Additional Past Medical Histor: HEP C, CHRONIC BACK/HIP PAIN, DRUG SEEKING BEHAVIOR, PCP Past Surgical History: Cholecystectomy, Hysterectomy Additional Past Surgical Histo: R ARM Fistula, back surgery Alcohol Use: None Drug Use: Cocaine, Phencyclidine Adult General Chief Complaint Chief Complaint: OTHER COMPLAINTS HPI HPI Patient is a 56 year old -N[place]alese female with history of schizophrenia, chronic kidney failure with end-stage renal disease requiring dialysis who presents with reports of right AV fistula. Patient ate she last dialyzed [facility] 2 days ago, was unable to complete dialysis due to nonworking fistula. Patient states she was supposed after fistula treated at [facility] but was discharged prior to that arrangements being made. Patient was scheduled for dialysis 's today but came to the ED for re-valuation of fistula. Patient denies any other acute symptoms or complaints. He is accompanied at bedside by her case work aide. Review of Systems Review of Systems ROS as per HPI. Current Medications Current Medications Current Medications Medications (Trade) Dose Ordered Sig/Zayda Start Time Stop Time Status Last Admin Dose Admin Acetaminophen/ Hydrocodone Bitart (Lortab 5/325) 1 tab 1X ONCE 12/07/16 17:00 12/07/16 17:01 DC 12/07/16 17:00 1 TAB Ondansetron HCl (Zofran) 4 mg PRN Q8HRS PRN 12/07/16 19:00 12/08/16 18:59 Sodium Polystyrene Sulfonate (Kayexalate) 30 gm 1X ONCE 12/07/16 18:45 12/07/16 18:46 DC 12/07/16 18:50 30 GM Allergies Allergies Allergies Coded Allergies Type Severity Reaction Last Updated Verified tramadol Adverse Reaction Intermediate VOMITING 11/07/16 Yes Physical Exam Physical Exam Constitutional: Well developed, well nourished, no acute distress, non-toxic appearance. HENT: Normocephalic, atraumatic, bilateral external ears normal, oropharynx moist. Eyes: PERRL. Neck: Normal range of motion, no tenderness, supple. Cardiovascular:Heart rate regular rhythm, no murmur. Lungs & Thorax: Bilateral breath sounds clear to auscultation. Abdomen: Bowel sounds normal, soft, no tenderness. Skin: Warm, dry. Back: No tenderness, no CVA tenderness. Extremities: Right upper extremity AV fistula, palpable thrill. Neurologic: Alert and oriented X 3, normal motor function. Psychologic: Affect normal, judgement normal, mood normal. Current Patient Data Vital Signs Vital Signs Date Time Temp Pulse Resp B/P Pulse Ox O2 Delivery O2 Flow Rate FiO2 12/07/16 18:50 77 20 132/74 92 12/07/16 15:28 97.4 Room Air 97.4 Lab Values Laboratory Tests Test 12/07/16 16:20 12/07/16 17:25 Sodium Level 139mmol/L (136-145) Potassium Level 6.1mmol/L (3.5-5.1) *H Chloride Level 102mmol/L (98-107) Carbon Dioxide Level 24mmol/L (21-32) Anion Gap 13 (6-14) Blood Urea Nitrogen 77mg/dL (7-20) H Creatinine 11.3mg/dL (0.6-1.0) H Estimated GFR (Cockcroft-Gault) 4.3 BUN/Creatinine Ratio 7 (6-20) Glucose Level 197mg/dL (70-99) H Calcium Level 8.9mg/dL (8.5-10.1) Total Bilirubin 0.6mg/dL (0.2-1.0) Aspartate Amino Transferase (AST) 56U/L (15-37) H Alanine Aminotransferase (ALT) 36U/L (14-59) Alkaline Phosphatase 135U/L (46-116) H Total Protein 7.5g/dL (6.4-8.2) Albumin 2.7g/dL (3.4-5.0) L Albumin/Globulin Ratio 0.6 (1.0-1.7) L White Blood Count 4.4x10^3/uL (4.0-11.0) Red Blood Count 2.92x10^6/uL (3.50-5.40) L Hemoglobin 9.1g/dL (12.0-15.5) L Hematocrit 28.0% (36.0-47.0) L Mean Corpuscular Volume 96fL (79-100) Mean Corpuscular Hemoglobin 31pg (25-35) Mean Corpuscular Hemoglobin Concent 33g/dL (31-37) Red Cell Distribution Width 18.3% (11.5-14.5) H Platelet Count 138x10^3/uL (140-400) L Neutrophils (%) (Auto) 71% (31-73) Lymphocytes (%) (Auto) 16% (24-48) L Monocytes (%) (Auto) 11% (0-9) H Eosinophils (%) (Auto) 2% (0-3) Basophils (%) (Auto) 1% (0-3) Neutrophils # (Auto) 3.1x10^3uL (1.8-7.7) Lymphocytes # (Auto) 0.7x10^3/uL (1.0-4.8) L Monocytes # (Auto) 0.5x10^3/uL (0.0-1.1) Eosinophils # (Auto) 0.1x10^3/uL (0.0-0.7) Basophils # (Auto) 0.0x10^3/uL (0.0-0.2) Laboratory Tests 12/07/16 17:25 Laboratory Tests 12/07/16 16:20 EKG EKG [EKG: Pending] Radiology/Procedures Radiology/Procedures [Right upper extremity vascular ultrasound: 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 (See chart for details) [Case reviewed with Dr. Martins operations dispatcher for nephrology. Recommendations are for Kayexalate, hospitalist service admission and assessment for dialysis tomorrow with possible interventional radiology consult as needed.] Dragon Disclaimer Dragon Disclaimer This electronic medical record was generated, in whole or in part, using a voice recognition dictation system. DAINA IBARRA DO Dec 07, 2016 17:24
[2016-12-07 17:31] LABS: BASO % 1 % (0-3); EOS % 2 % (0-3); HEMOGLOBIN 9.1 g/dL (12.0-15.5); LYMPH # 0.7 x10^3/uL (1.0-4.8); LYMPH % 16 % (24-48); MEAN CORPUSCULAR HEMOGLOBIN 31 pg (25-35); MEAN CORPUSCULAR HGB CONC 33 g/dL (31-37); MEAN CORPUSCULAR VOLUME 96 fL (79-100); MONO % 11 % (0-9); NEUT % 71 % (31-73); PLATELET COUNT 138 x10^3/uL (140-400); RED BLOOD COUNT 2.92 x10^6/uL (3.50-5.40); RED CELL DISTRIBUTION WIDTH 18.3 % (11.5-14.5); WHITE BLOOD COUNT 4.4 x10^3/uL (4.0-11.0)
--- NOTE | 2016-12-07 17:49 | RAD ---
Examination: Ultrasound right upper extremity venous duplex. HISTORY History of right arm pain COMPARISON None available. TECHNIQUE Grayscale, Doppler spectral waveforms of the right upper extremity venous system were performed. Findings. The visualized internal jugular vein, subclavian vein, axillary vein are patent. There is a AV shunt fistula identified from brachial artery to the basilic vein. The cephalic vein is patent. The brachial vein, radial vein, ulnar veins are patent. The AV fistula is patent. At least 2 bulges /aneurysmal changes identified in the AV fistula, most in the proximal portion measuring 3.9 centimeters. The velocity in the aneurysmal portion of the fistula is about 50 centimeters/second. IMPRESSION No evidence of DVT. The right arm AV fistula is patent from brachial artery to the basilic vein. Some aneurysmal changes identified within the AV fistula, most measuring 3.9 centimeters in the proximal portion. Electronically signed by: Esdras Morrison (Dec 07, 2016 17:49:03)
[2016-12-07 18:02] LABS: ALBUMIN 2.7 g/dL (3.4-5.0); ALBUMIN/GLOBULIN RATIO 0.6 (1.0-1.7); CALCIUM 8.9 mg/dL (8.5-10.1); CREATININE 11.3 mg/dL (0.6-1.0); GFR 4.3; TOTAL BILIRUBIN 0.6 mg/dL (0.2-1.0); TOTAL PROTEIN 7.5 g/dL (6.4-8.2)
[2016-12-07 18:11] LABS: POTASSIUM 6.1 mmol/L (3.5-5.1)
[2016-12-07] MEDS ORDERED: SODIUM POLYSTYRENE SULFONATE 15 GM/60 ML ORAL.SUSP. PO ONE (18:45)
[2016-12-07] MEDS ORDERED: ONDANSETRON PF 4 MG/2 ML VIAL. IV PRN (19:00)
--- NOTE | 2016-12-07 21:33 | PDOC1 ---
History and Physical Date of Admission Date of Admission DATE: 12/07/16 TIME: 21:30 Identification/Chief Complaint Chief Complaint back pain Problems: Source Source: Chart review, Patient History of Present Illness History of Present Illness Shena is a 56 year old -[place] female with history of schizophrenia , chronic kidney failure with end-stage renal disease requiring dialysis who presents with reports of not functional right AV fistula. Per report, was last dialyzed [facility] 2 days ago, when she was hospitalized there, and was unable to complete dialysis due to nonworking fistula. I could not understand her story of why would not address her fistula if not functional, she is largely unclear of other recent medical history, but she thinks she missed HD sunday and today She complains of acute on chronic back pain, and came to the ED for re- valuation of fistula. Past Medical History Cardiovascular: HTN Pulmonary: No pertinent hx CENTRAL NERVOUS SYSTEM: Carpal Tunnel Syndrome GI: No pertinent hx Heme/Onc: Anemia NOS Musculoskeletal: Stiffness Renal/: Chronic renal failure Endocrine: No pertinent hx, Diabetes, Hyperparathyroidism Past Surgical History Past Surgical History: No pertinent history Family History Family History: No Significant Social History Smoke: 1 pack per day ALCOHOL: none Drugs: Other Current Problem List Problem List Problems Medical Problems: (1) Acute on chronic renal failure Status: Acute (2) Hyperkalemia Status: Acute Problems: Current Medications Current Medications Current Medications Acetaminophen/ Hydrocodone Bitart (Lortab 5/325) 1 tab 1X ONCE PO Last administered on 12/07/16 17:00; Start 12/07/16 at 17:00; Stop 12/07/16 at 17:01 ; Status DC Sodium Polystyrene Sulfonate (Kayexalate) 30 gm 1X ONCE PO Last administered on 12/07/16t 18:50; Start 12/07/16 at 18:45; Stop 12/07/16 at 18:46; Status DC Ondansetron HCl (Zofran) 4 mg PRN Q8HRS PRN IV NAUSEA/VOMITING; Start 12/07/16 at 19:00; Stop 12/08/16 at 18:59 Active Scripts Active Percocet 5-325 Mg Tablet (Oxycodone/Acetaminophen) 1 Each Tablet 1 Tab PO QID PRN Alprazolam 0.5 Mg Tablet 0.5 Mg PO Q8HRS PRN Oxycodone Hcl 10 Mg Tablet 1 Tab PO PRN BID PRN Olanzapine Odt (Olanzapine) 10 Mg Tab.rapdis 10 Mg PO QHS Lamotrigine 25 Mg Tablet 25 Mg PO DAILY 30 Days Zoloft (Sertraline Hcl) 100 Mg Tablet 200 Mg PO DAILY Risperidone 4 Mg Tablet 4 Mg PO DAILY Zofran Odt (Ondansetron) 4 Mg Tab.rapdis 1 Tab SL Q8HRS Reported NICODERM CQ 21mg (Nicotine) 1 Each Patch.td24 1 Patch TP DAILY Depakote (Divalproex Sodium) 250 Mg Tablet.dr 250 Mg PO TID Amlodipine Besylate 10 Mg Tablet 10 Mg PO DAILY Hydralazine Hcl 50 Mg Tablet 50 Mg PO QID Renagel (Sevelamer Hcl) 800 Mg Tablet 800 Mg PO TIDWMEALS Simvastatin 40 Mg Tablet 40 Mg PO HS Levothyroxine Sodium 125 Mcg Tablet 125 Mcg PO DAILYAC Gabapentin 300 Mg Capsule 300 Mg PO DAILY Phoslo (Calcium Acetate) 667 Mg Capsule 667 Mg PO TIDWMEALS Carvedilol 12.5 Mg Tablet 12.5 Mg PO BIDWMEALS Allergies Allergies: Coded Allergies: tramadol (Verified Adverse Reaction, Intermediate, VOMITING, 11/07/16) ROS General: No: Appetite, Chills, Fatigue, Malaise, Night Sweats, Other PSYCHOLOGICAL ROS: YES: Anxiety, No: Behavioral Disorder, Concentration difficultie, Decreased libido, Depression, Disorientation, Hallucinations, Hostility, Irritablity, Memory difficulties, Mood Swings, Obsessive thoughts, Other, Physical abuse, Sexual abuse, Sleep disturbances, Suicidal ideation Respiratory: No: Cough, Hemoptysis, Orthopnea, Other, Pleuritic Pain, SOB with excertion, Shortness of breath, Sputum Changes, Stridor, Tachypnea, Wheezing Cardiovascular: yes Chest Pain, No Edema, No Lt Headedness, No Orthopnea, No Other, No Palpitations, No Paroxysmal Noc. Dyspnea Gastrointestinal: Yes Nausea Musculoskeletal: Yes Joint Pain, Yes Joint Stiffness, Yes Joint Swelling, Yes Muscle Pain (back), No Gait Disturbance, No Muscular Weakness, No Other, No Pain In:, No Swelling In: Neurological: Yes Gait Disturbance, Yes Headaches, Yes Memory Loss, No Behavorial Changes, No Bowel/Bladder ControlChng, No Confusion, No Dizziness, No Impaired Coord/balance, No Numbness/Tingling, No Other, No Seizures, No Speech Problems, No Tremors, No Visual Changes, No Weakness Skin: Yes Dry Skin Physical Exam General: Alert, Oriented X3, Cooperative, No acute distress, Other (cannot recall her renal doctor) Lungs: Clear to auscultation, Normal air movement Heart: no murmurs Extremities: No clubbing, No edema Skin: No rashes Neuro: Normal tone, Cranial nerves 3-12 NL Psych/Mental Status: Mood NL Vitals Vitals Vital Signs Date Time Temp Pulse Resp B/P Pulse Ox O2 Delivery O2 Flow Rate FiO2 12/07/16 20:46 87 20 154/70 94 12/07/16 15:28 97.4 Room Air 97.4 Labs Labs Laboratory Tests Test 12/07/16 16:20 12/07/16 17:25 Sodium Level 139mmol/L (136-145) Potassium Level 6.1mmol/L (3.5-5.1) Chloride Level 102mmol/L (98-107) Carbon Dioxide Level 24mmol/L (21-32) Anion Gap 13 (6-14) Blood Urea Nitrogen 77mg/dL (7-20) Creatinine 11.3mg/dL (0.6-1.0) Estimated GFR (Cockcroft-Gault) 4.3 BUN/Creatinine Ratio 7 (6-20) Glucose Level 197mg/dL (70-99) Calcium Level 8.9mg/dL (8.5-10.1) Total Bilirubin 0.6mg/dL (0.2-1.0) Aspartate Amino Transf (AST/SGOT) 56U/L (15-37) Alanine Aminotransferase (ALT/SGPT) 36U/L (14-59) Alkaline Phosphatase 135U/L (46-116) Total Protein 7.5g/dL (6.4-8.2) Albumin 2.7g/dL (3.4-5.0) Albumin/Globulin Ratio 0.6 (1.0-1.7) White Blood Count 4.4x10^3/uL (4.0-11.0) Red Blood Count 2.92x10^6/uL (3.50-5.40) Hemoglobin 9.1g/dL (12.0-15.5) Hematocrit 28.0% (36.0-47.0) Mean Corpuscular Volume 96fL (79-100) Mean Corpuscular Hemoglobin 31pg (25-35) Mean Corpuscular Hemoglobin Concent 33g/dL (31-37) Red Cell Distribution Width 18.3% (11.5-14.5) Platelet Count 138x10^3/uL (140-400) Neutrophils (%) (Auto) 71% (31-73) Lymphocytes (%) (Auto) 16% (24-48) Monocytes (%) (Auto) 11% (0-9) Eosinophils (%) (Auto) 2% (0-3) Basophils (%) (Auto) 1% (0-3) Neutrophils # (Auto) 3.1x10^3uL (1.8-7.7) Lymphocytes # (Auto) 0.7x10^3/uL (1.0-4.8) Monocytes # (Auto) 0.5x10^3/uL (0.0-1.1) Eosinophils # (Auto) 0.1x10^3/uL (0.0-0.7) Basophils # (Auto) 0.0x10^3/uL (0.0-0.2) Laboratory Tests Test 12/07/16 16:20 12/07/16 17:25 Sodium Level 139mmol/L (136-145) Potassium Level 6.1mmol/L (3.5-5.1) Chloride Level 102mmol/L (98-107) Carbon Dioxide Level 24mmol/L (21-32) Anion Gap 13 (6-14) Blood Urea Nitrogen 77mg/dL (7-20) Creatinine 11.3mg/dL (0.6-1.0) Estimated GFR (Cockcroft-Gault) 4.3 BUN/Creatinine Ratio 7 (6-20) Glucose Level 197mg/dL (70-99) Calcium Level 8.9mg/dL (8.5-10.1) Total Bilirubin 0.6mg/dL (0.2-1.0) Aspartate Amino Transf (AST/SGOT) 56U/L (15-37) Alanine Aminotransferase (ALT/SGPT) 36U/L (14-59) Alkaline Phosphatase 135U/L (46-116) Total Protein 7.5g/dL (6.4-8.2) Albumin 2.7g/dL (3.4-5.0) Albumin/Globulin Ratio 0.6 (1.0-1.7) White Blood Count 4.4x10^3/uL (4.0-11.0) Red Blood Count 2.92x10^6/uL (3.50-5.40) Hemoglobin 9.1g/dL (12.0-15.5) Hematocrit 28.0% (36.0-47.0) Mean Corpuscular Volume 96fL (79-100) Mean Corpuscular Hemoglobin 31pg (25-35) Mean Corpuscular Hemoglobin Concent 33g/dL (31-37) Red Cell Distribution Width 18.3% (11.5-14.5) Platelet Count 138x10^3/uL (140-400) Neutrophils (%) (Auto) 71% (31-73) Lymphocytes (%) (Auto) 16% (24-48) Monocytes (%) (Auto) 11% (0-9) Eosinophils (%) (Auto) 2% (0-3) Basophils (%) (Auto) 1% (0-3) Neutrophils # (Auto) 3.1x10^3uL (1.8-7.7) Lymphocytes # (Auto) 0.7x10^3/uL (1.0-4.8) Monocytes # (Auto) 0.5x10^3/uL (0.0-1.1) Eosinophils # (Auto) 0.1x10^3/uL (0.0-0.7) Basophils # (Auto) 0.0x10^3/uL (0.0-0.2) VTE Prophylaxis Ordered VTE Prophylaxis Devices: Yes VTE Pharmacological Prophylaxi: No Assessment/Plan Assessment/Plan hyperkalemia. she reports making some urine, will given 100 lasix IV to try to correct, renal consult from ER ESRD. HD, she has missed X2 now, clotted or aneurysm at AV fistula, consult renal, and IR schizophrenia anemia of CKD mod/severe malnutrition HTN, chronic diastolic CHF hyperlipids depression or Bipolar 2 back pain, requests additional pain meds, consult BRAYAN Bateman MD Dec 07, 2016 21:33
[2016-12-07 21:35] VITALS: BP 140/80
[2016-12-07] MEDS ORDERED: ZOLPIDEM 5 MG TABLET. PO PRN (22:00)
[2016-12-07] MEDS ORDERED: FUROSEMIDE 100 MG/10 ML VIAL. IVP ONE (22:30)
[2016-12-07] MEDS: OLANZapine 5 MG TABLET PO SCH (22:45)
[2016-12-07] MEDS: oxyCODONE IR 5 MG TABLET PO PRN (22:47)
[2016-12-07 23:35] VITALS: BP 155/85
[2016-12-08 03:25] VITALS: BP 131/72
[2016-12-08] MEDS: NICOTINE 21MG PATCH. TD SCH (05:29)
--- NOTE | 2016-12-08 06:13 | EKG ---
[facility] [address] [place] [address] Test Date: 2016-12-07 Test Time: 20:48:12 Pat Name: BUDDY GUERRA Department: Room: 258 1 Gender: F [employer] Professor: : [id number] Requested By: DAINA IBARRA Order Number: [id number] Reading MD: Jayjay Leigh Measurements Intervals Spruce Rate: 86 P: 51 DC: 138 QRS: -41 QRSD: 122 T: 32 QT: 422 QTc: 508 Interpretive Statements SINUS RHYTHM LEFT ATRIAL ABNORMALITY ABNORMAL LEFT AXIS DEVIATION LEFT ANTERIOR FASCICULAR BLOCK QRS(T) CONTOUR ABNORMALITY CONSISTENT WITH ANTEROSEPTAL INFARCT Electronically Signed On 12-08-2016 17:59:33 CDT by Jayjay Leigh
[2016-12-08 06:20] LABS: BASO % 1 % (0-3); EOS % 4 % (0-3); HEMATOCRIT 25.6 % (36.0-47.0); HEMOGLOBIN 8.2 g/dL (12.0-15.5); LYMPH % 21 % (24-48); MEAN CORPUSCULAR HEMOGLOBIN 31 pg (25-35); MEAN CORPUSCULAR HGB CONC 32 g/dL (31-37); MEAN CORPUSCULAR VOLUME 95 fL (79-100); MONO % 13 % (0-9); NEUT % 62 % (31-73); PLATELET COUNT 138 x10^3/uL (140-400); RED CELL DISTRIBUTION WIDTH 18.7 % (11.5-14.5); WHITE BLOOD COUNT 4.9 x10^3/uL (4.0-11.0)
[2016-12-08 06:41] LABS: CALCIUM 8.7 mg/dL (8.5-10.1); CREATININE 11.5 mg/dL (0.6-1.0); GFR 4.2
[2016-12-08 06:43] LABS: POTASSIUM 5.9 mmol/L (3.5-5.1)
[2016-12-08] MEDS: LEVOTHYROXINE 125 MCG TABLET PO SCH (06:59)
[2016-12-08 07:39] VITALS: BP 139/80
[2016-12-08] MEDS: CALCIUM ACETATE 667 MG CAPSULE PO SCH ×3 (08:00→16:23)
[2016-12-08] MEDS: SEVELAMER CARBONATE 800 MG TABLET. PO SCH ×3 (08:00→17:00)
[2016-12-08] MEDS: CARVEDILOL 12.5 MG TABLET. PO SCH ×2 (08:00→16:24)
--- NOTE | 2016-12-08 08:34 | ACF ---
Admit Criteria Forms Admit Criteria Forms Admit Criteria Forms HYPONATREMIA; HYPERNATREMIA; HYPOKALEMIA; HYPERKALEMIA; HYPOCALCEMIA; HYPERCALCEMIA Clinical Indications for Inpatient Care (Place 'X' for any and all applicable criteria): Ongoing inpatient care may be indicated for ANY ONE of the following [G](1)(2)(3 )(5): [ ]I. Hyponatremia with ANY ONE of the following: [ ]a) Sodium less than 130 mEq/L (mmol/L) (new) (6)(22) [ ]b) Sodium less than 135 mEq/L (mmol/L) with ANY ONE of the following: [ ]i) Severe medical etiology requiring inpatient management (eg, heart failure, hypovolemia) [ ]ii) Altered mental status [ ]iii) Seizures [ ]II. Hypernatremia with ANY ONE of the following: [ ]a) Sodium greater than 155 mEq/L (mmol/L) [ ]b) Sodium greater than 150 mEq/L (mmol/L) with ANY ONE of the following: [ ] i) Altered mental status [ ]ii) Seizures [ ]iii) Severe medical etiology (eg, hypovolemia, diabetes insipidus) [ ]iv) Severe weakness [ ]v) Severe medical etiology (eg, hemolysis, infection, drug overdose) [ ]III. Hypokalemia with ANY ONE of the following: [ ]a) Potassium less than 2.5 mEq/L (mmol/L) despite outpatient and emergency treatment [ ]b) Potassium less than 3.0 mEq/L (mmol/L) with ANY ONE of the following: [ ]i) Weakness [ ]ii) Cardiac abnormality (eg, arrhythmia, conduction disturbance) [ ]iii) Cardiac ischemia [ ]iv) Ileus [ ]v) Ongoing medical cause requiring inpatient management. ( e.g., acute renal wasting, SIADH) [ ]vi) Other severe symptoms [X] IV. Hyperkalemia with ANY ONE of the following: [ ]a) Potassium greater than 6.5 mEq/L (mmol/L) [X]b) Potassium greater than 5 mEq/L (mmol/L) with ANY ONE of the following: [ ]i) Severe ECG findings [H] [X]ii) Acute worsening of renal failure (creatinine greater than 2.5 mg/dL (221 micromoles/L) or significant elevation for age and size) [ ] V. Hypocalcemia with ANY ONE of the following: [ ]a) Calcium less than 7 mg/dL (1.75 mmol/L) despite outpatient and emergency treatment(19) [ ]b) Calcium less than 8 mg/dL (2 mmol/L) with significant symptoms or findings; examples include: [ ]i) Cardiac abnormality (eg, arrhythmia or conduction disturbance) [ ]ii) Altered mental status [ ]iii) Seizures [ ]iv) Breathing difficulty [ ]v) Muscle spasms [ ]. Hypercalcemia with ANY ONE of the following: [ ]a) Calcium greater than 14 mg/dL (3.5 mmol/L) [ ]b) Calcium greater than 12 mg/dL (3 mmol/L) with ANY ONE of the following: [ ]i) Significant dehydration or hypovolemia as indicated by ANY ONE of the following(2): [ ]1. Clinically significant dehydration as indicated by ANY ONE of the following: [ ]A. Acute loss of weight from baseline (5% of body weight in adults, 9% in pediatric patients) [ ]B. Hemodynamic instability [ ]C. Acute renal failure [ ]D. Serum sodium greater than 150 mEq/L (mmol/L) [ ]2) Dehydration that is persistent indicated by ALL of the following: [ ]A. Oral rehydration therapy not tolerated or insufficient to adequately correct dehydration [ ]B. Appropriate intravenous treatment (eg, fluids ) does not readily correct dehydration ie, after 12 to 24 hours of treatment) [ ]ii) Significant symptoms or findings; examples include: [ ]1) Altered mental status [ ]2) Cardiac abnormality (eg, arrhythmia, conduction disturbance) [ ]3) Cardiac abnormality (eg, arrhythmia, conduction disturbance) The original [employer] content created by [employer] has been revised. The portions of the content which have been revised are identified through the use of italic text or in bold, and [facility] [employer] has neither reviewed nor approved the modified material. All other unmodified content is copyright [facility] ([employer]) Please see references footnoted in the original [facility]) edition 2015 LIZZIE BARCENAS Dec 08, 2016 08:34
[2016-12-08 08:41] LABS: INR 1.2 (0.8-1.1); PROTHROMBIN TIME PATIENT 14.1 SEC (11.7-14.0)
[2016-12-08] MEDS: GABAPENTIN 300 MG CAPSULE. PO SCH (09:00)
[2016-12-08] MEDS: SERTRALINE 50 MG TABLET. PO SCH (09:00)
[2016-12-08] MEDS: DIVALPROEX DELAYED RELEASE 250 MG TABLET.DR. PO SCH ×3 (09:00→21:10)
[2016-12-08] MEDS: amLODIPine BESYLATE 10 MG TABLET PO SCH (09:00)
[2016-12-08] MEDS: risperiDONE 1 MG TABLET. PO SCH (09:00)
[2016-12-08] MEDS: lamoTRIgine 25 MG TABLET. PO SCH (09:00)
[2016-12-08] MEDS ORDERED: DEXTROSE 50% 25 GM / 50ML DISP.SYRIN. IV PRN (09:15)
--- NOTE | 2016-12-08 09:15 | PDOC ---
PROGRESS NOTES Chief Complaint Chief Complaint Uremia Noncompliance with HD ASSESSMENT AND PLAN: 1. Hyperkalemia: some improvement even prior to HD. 2. ESRD: s/p HD today 3. AV fistula malfxn: revision planned by Dr Olson 4. Anemia: 2/2 ESRD. on EPO 5. DM2: no diabetic home meds. on ISS. HgbA1c pending 6. CHF: chronic diastolic 7. HLD, HTN: well controlled. continue home regimen 8. Schizophrenia, bipolar 9. Hypoalbuminemia: moderate 10. Back pain: chronic. 11. Dispo: home today History of Present Illness History of Present Illness out to smoke (unbeknownst to staff). apparently has record of this Vitals Vitals Vital Signs Date Time Temp Pulse Resp B/P Pulse Ox O2 Delivery O2 Flow Rate FiO2 12/08/16 07:39 97.2 81 14 139/80 93 Room Air 97.2 Physical Exam General: Alert, Oriented X3, Cooperative, No acute distress Heart: Regular rate Lungs: Clear Abdomen: Normal bowel sounds, Soft, No tenderness Extremities: No clubbing, No edema Skin: No rashes Labs LABS Laboratory Tests Test 12/07/16 16:20 12/07/16 17:25 12/07/16 21:53 12/08/16 05:30 Sodium Level 139mmol/L (136-145) 139mmol/L (136-145) Potassium Level 6.1mmol/L (3.5-5.1) 5.9mmol/L (3.5-5.1) Chloride Level 102mmol/L (98-107) 101mmol/L (98-107) Carbon Dioxide Level 24mmol/L (21-32) 21mmol/L (21-32) Anion Gap 13 (6-14) 17 (6-14) Blood Urea Nitrogen 77mg/dL (7-20) 83mg/dL (7-20) Creatinine 11.3mg/dL (0.6-1.0) 11.5mg/dL (0.6-1.0) Estimated GFR (Cockcroft-Gault) 4.3 4.2 BUN/Creatinine Ratio 7 (6-20) Glucose Level 197mg/dL (70-99) 94mg/dL (70-99) Calcium Level 8.9mg/dL (8.5-10.1) 8.7mg/dL (8.5-10.1) Total Bilirubin 0.6mg/dL (0.2-1.0) Aspartate Amino Transf (AST/SGOT) 56U/L (15-37) Alanine Aminotransferase (ALT/SGPT) 36U/L (14-59) Alkaline Phosphatase 135U/L (46-116) Total Protein 7.5g/dL (6.4-8.2) Albumin 2.7g/dL (3.4-5.0) Albumin/Globulin Ratio 0.6 (1.0-1.7) White Blood Count 4.4x10^3/uL (4.0-11.0) 4.9x10^3/uL (4.0-11.0) Red Blood Count 2.92x10^6/uL (3.50-5.40) 2.70x10^6/uL (3.50-5.40) Hemoglobin 9.1g/dL (12.0-15.5) 8.2g/dL (12.0-15.5) Hematocrit 28.0% (36.0-47.0) 25.6% (36.0-47.0) Mean Corpuscular Volume 96fL (79-100) 95fL (79-100) Mean Corpuscular Hemoglobin 31pg (25-35) 31pg (25-35) Mean Corpuscular Hemoglobin Concent 33g/dL (31-37) 32g/dL (31-37) Red Cell Distribution Width 18.3% (11.5-14.5) 18.7% (11.5-14.5) Platelet Count 138x10^3/uL (140-400) 138x10^3/uL (140-400) Neutrophils (%) (Auto) 71% (31-73) 62% (31-73) Lymphocytes (%) (Auto) 16% (24-48) 21% (24-48) Monocytes (%) (Auto) 11% (0-9) 13% (0-9) Eosinophils (%) (Auto) 2% (0-3) 4% (0-3) Basophils (%) (Auto) 1% (0-3) 1% (0-3) Neutrophils # (Auto) 3.1x10^3uL (1.8-7.7) 3.0x10^3uL (1.8-7.7) Lymphocytes # (Auto) 0.7x10^3/uL (1.0-4.8) 1.0x10^3/uL (1.0-4.8) Monocytes # (Auto) 0.5x10^3/uL (0.0-1.1) 0.6x10^3/uL (0.0-1.1) Eosinophils # (Auto) 0.1x10^3/uL (0.0-0.7) 0.2x10^3/uL (0.0-0.7) Basophils # (Auto) 0.0x10^3/uL (0.0-0.2) 0.0x10^3/uL (0.0-0.2) Glucose (Fingerstick) 201mg/dL (70-99) Test 12/08/16 07:45 12/08/16 08:15 Glucose (Fingerstick) 79mg/dL (70-99) Prothrombin Time 14.1SEC (11.7-14.0) Prothromb Time International Ratio 1.2 (0.8-1.1) WALT MALDONADO MD Dec 08, 2016 09:15
[2016-12-08] MEDS: ONDANSETRON ODT 4 MG TAB.RAPDIS. PO PRN (10:10)
--- NOTE | 2016-12-08 10:56 | PDOC2 ---
CONSULT Date of Consult Date of Consult DATE: 12/08/16 TIME: 10:47 Reason for Consult Reason for Consult: ESRD, ^K Referring Physician Referring Physician: DIANN moreira Identification/Chief Complaint Chief Complaint AVF issues Problems: Source Source: Chart review, Patient History of Present Illness Reason for Visit: as dictated in HPI Past Medical History Cardiovascular: HTN Pulmonary: No pertinent hx CENTRAL NERVOUS SYSTEM: Carpal Tunnel Syndrome GI: No pertinent hx Heme/Onc: Anemia NOS Musculoskeletal: Stiffness Renal/: Chronic renal failure Endocrine: No pertinent hx, Diabetes, Hyperparathyroidism Past Surgical History Past Surgical History: No pertinent history Family History Family History: No Significant Social History 1 pack per day ALCOHOL: none Drugs: Other Lives: Homeless Current Problem List Problem List Problems Medical Problems: (1) Acute on chronic renal failure Status: Acute (2) Hyperkalemia Status: Acute Current Medications Current Medications Current Medications Acetaminophen/ Hydrocodone Bitart (Lortab 5/325) 1 tab 1X ONCE PO Last administered on 12/07/16 17:00; Start 12/07/16 at 17:00; Stop 12/07/16 at 17:01 ; Status DC Sodium Polystyrene Sulfonate (Kayexalate) 30 gm 1X ONCE PO Last administered on 12/07/16 18:50; Start 12/07/16 at 18:45; Stop 12/07/16 at 18:46; Status DC Ondansetron HCl (Zofran) 4 mg PRN Q8HRS PRN IV NAUSEA/VOMITING; Start 12/07/16 at 19:00; Stop 12/08/16 at 18:59 Alprazolam (Xanax) 0.5 mg PRN Q8HRS PRN PO ANXIETY / AGITATION; Start 12/07/16 at 21:30 Amlodipine Besylate (Norvasc) 10 mg DAILY PO ; Start 12/08/16 at 09:00 Calcium Acetate (Phoslo) 667 mg TIDWMEALS PO ; Start 12/08/16 at 08:00 Carvedilol (Coreg) 12.5 mg BIDWMEALS PO ; Start 12/08/16 at 08:00 Divalproex Sodium (Depakote) 250 mg TID PO ; Start 12/08/16 at 09:00 Hydralazine HCl (Apresoline) 50 mg QID PO ; Start 12/08/16 at 09:00 Lamotrigine (LaMICtal) 25 mg DAILY PO ; Start 12/08/16 at 09:00 Levothyroxine Sodium (Synthroid) 125 mcg DAILYAC PO Last administered on 06:59; Start 12/08/16 at 07:30 Nicotine (Nicoderm Cq 21mg) 1 patch DAILY TD Last administered on 12/08/16 05: 29; Start 12/08/16 at 06:00 Ondansetron HCl (Zofran Odt) 4 mg PRN Q8HRS PRN PO nausea Last administered on 12/08/16 10:10; Start 12/07/16 at 21:30 Atorvastatin Calcium (Lipitor) 20 mg QHS PO ; Start 12/08/16 at 21:00 Gabapentin (Neurontin) 300 mg DAILY PO ; Start 12/08/16 at 09:00 Olanzapine (Zyprexa) 10 mg QHS PO Last administered on 12/07/16 22:45; Start 12/07/16 at 21:45 Oxycodone HCl (Roxicodone) 10 mg PRN BID PRN PO SEVERE PAIN Last administered on 12/07/16 22:47; Start 12/07/16 at 21:45 Risperidone (Risperdal) 4 mg DAILY PO ; Start 12/08/16 at 09:00 Sertraline HCl (Zoloft) 200 mg DAILY PO ; Start 12/08/16 at 09:00 Sevelamer Carbonate (Renvela) 800 mg TIDWMEALS PO ; Start 12/08/16 at 08:00 Zolpidem Tartrate (Ambien) 5 mg PRN QHS PRN PO INSOMNIA, MAY REPEAT IN 1HR; Start 12/07/16 at 22:00 Furosemide (Lasix) 100 mg 1X ONCE IVP Last administered on 12/07/16 22:51; Start 12/07/16 at 22:30; Stop 12/07/16 at 22:31; Status DC Insulin Aspart (Novolog) 0-5 UNITS TIDWMEALS SQ ; Start 12/08/16 at 12:00 Dextrose (Dextrose 50%-Water Syringe) 12.5 gm PRN Q15MIN PRN IV SEE COMMENTS; Start 12/08/16 at 09:15 Active Scripts Active Percocet 5-325 Mg Tablet (Oxycodone/Acetaminophen) 1 Each Tablet 1 Tab PO QID PRN Alprazolam 0.5 Mg Tablet 0.5 Mg PO Q8HRS PRN Oxycodone Hcl 10 Mg Tablet 1 Tab PO PRN BID PRN Olanzapine Odt (Olanzapine) 10 Mg Tab.rapdis 10 Mg PO QHS Lamotrigine 25 Mg Tablet 25 Mg PO DAILY 30 Days Zoloft (Sertraline Hcl) 100 Mg Tablet 200 Mg PO DAILY Risperidone 4 Mg Tablet 4 Mg PO DAILY Zofran Odt (Ondansetron) 4 Mg Tab.rapdis 1 Tab SL Q8HRS Reported NICODERM CQ 21mg (Nicotine) 1 Each Patch.td24 1 Patch TP DAILY Depakote (Divalproex Sodium) 250 Mg Tablet.dr 250 Mg PO TID Amlodipine Besylate 10 Mg Tablet 10 Mg PO DAILY Hydralazine Hcl 50 Mg Tablet 50 Mg PO QID Renagel (Sevelamer Hcl) 800 Mg Tablet 800 Mg PO TIDWMEALS Simvastatin 40 Mg Tablet 40 Mg PO HS Levothyroxine Sodium 125 Mcg Tablet 125 Mcg PO DAILYAC Gabapentin 300 Mg Capsule 300 Mg PO DAILY Phoslo (Calcium Acetate) 667 Mg Capsule 667 Mg PO TIDWMEALS Carvedilol 12.5 Mg Tablet 12.5 Mg PO BIDWMEALS Allergies Allergies: Coded Allergies: tramadol (Verified Adverse Reaction, Intermediate, VOMITING, 11/07/16) ROS Review of System GEN: no Fevers no Chills EYES: no Visual Complaints ENT: no EN Drainage no Hearing deficiets CVS: no Orthopnea no CP RESP: no SOB no SAMPSON GI: n Nausea no Vomiting : no Dysuria no Urgency HEME: no easy bruising no Palp Ly Nodes NEURO no Focal Weakness no Sz PSYCH: no Suicidal Ideation no Depression SKIN: no Rashes ENDO: no Polyuria or Polydipsia no Hot/Cold Intolerance MU SK: no Arthraigia no Myalgia Physical Exam Physical Exam General Appearance: Awake Alert Oriented x 2 In no Distress Eyes: VIsion Unchanged Conjunctiva Normal EN: No EN Drainage Mucous Memb. moist Neck: no JVD no JVP Supple no Thyromegaly CVS: S1 S2 soft Murmur No Gallop No Rub no Edema Resp: no Rales no Rhonchi no Acc. Muscle use GI: BAS +ve NO Bruit Non Tender Non Distended : no CVA tenderness; no Suprapubic Tenderness SKIN: no Rashes Breast Exam deferred Mu.Sk: Adequate ROM no Muscle Atrophy Heme: Unable to palpate Obvious LAD no palp Splenomegaly NEURO: Good Strength and Tone Cranial Nerves II - XII grossly intact Psych: + Depressed no Active hallucination Vital Signs Assessment & Plan ESRD: Dialysis as below F 180 NR 3.5 Hrs 2 K 2.5 Ca 140 Na 35 HC03 Qb 350 + Qd 500+ Heparin 0 Units Uf to dry weight as tolerated May give 25-50 gms of 25% Albumin if needed to maintain Hemodynamic stability Treatment plan reviewed and discussed with support services specialist ^K - HD today as above AV Acess with Aneurysm - vasc Surgery eval here vs OP Anemia: Epogen as ordered, HTN: Current BP meds reviewed. See orders for changes. 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 Ct Current binder regimen and alter dose based on trend an PO intake Vital Signs Vital Signs Date Time Temp Pulse Resp B/P Pulse Ox O2 Delivery O2 Flow Rate FiO2 12/08/16 07:39 97.2 81 14 139/80 93 Room Air 97.2 Assessment & Plan Seen on Hemodialysis, tolerating treatment Okay - AVF functioning well but limited areas to access Vitals on Hemodialysis: 155/87 82 afeb Labs Labs Laboratory Tests Test 12/07/16 16:20 12/07/16 17:25 12/07/16 21:53 12/08/16 05:30 Sodium Level 139mmol/L (136-145) 139mmol/L (136-145) Potassium Level 6.1mmol/L (3.5-5.1) 5.9mmol/L (3.5-5.1) Chloride Level 102mmol/L (98-107) 101mmol/L (98-107) Carbon Dioxide Level 24mmol/L (21-32) 21mmol/L (21-32) Anion Gap 13 (6-14) 17 (6-14) Blood Urea Nitrogen 77mg/dL (7-20) 83mg/dL (7-20) Creatinine 11.3mg/dL (0.6-1.0) 11.5mg/dL (0.6-1.0) Estimated GFR (Cockcroft-Gault) 4.3 4.2 BUN/Creatinine Ratio 7 (6-20) Glucose Level 197mg/dL (70-99) 94mg/dL (70-99) Calcium Level 8.9mg/dL (8.5-10.1) 8.7mg/dL (8.5-10.1) Total Bilirubin 0.6mg/dL (0.2-1.0) Aspartate Amino Transf (AST/SGOT) 56U/L (15-37) Alanine Aminotransferase (ALT/SGPT) 36U/L (14-59) Alkaline Phosphatase 135U/L (46-116) Total Protein 7.5g/dL (6.4-8.2) Albumin 2.7g/dL (3.4-5.0) Albumin/Globulin Ratio 0.6 (1.0-1.7) White Blood Count 4.4x10^3/uL (4.0-11.0) 4.9x10^3/uL (4.0-11.0) Red Blood Count 2.92x10^6/uL (3.50-5.40) 2.70x10^6/uL (3.50-5.40) Hemoglobin 9.1g/dL (12.0-15.5) 8.2g/dL (12.0-15.5) Hematocrit 28.0% (36.0-47.0) 25.6% (36.0-47.0) Mean Corpuscular Volume 96fL (79-100) 95fL (79-100) Mean Corpuscular Hemoglobin 31pg (25-35) 31pg (25-35) Mean Corpuscular Hemoglobin Concent 33g/dL (31-37) 32g/dL (31-37) Red Cell Distribution Width 18.3% (11.5-14.5) 18.7% (11.5-14.5) Platelet Count 138x10^3/uL (140-400) 138x10^3/uL (140-400) Neutrophils (%) (Auto) 71% (31-73) 62% (31-73) Lymphocytes (%) (Auto) 16% (24-48) 21% (24-48) Monocytes (%) (Auto) 11% (0-9) 13% (0-9) Eosinophils (%) (Auto) 2% (0-3) 4% (0-3) Basophils (%) (Auto) 1% (0-3) 1% (0-3) Neutrophils # (Auto) 3.1x10^3uL (1.8-7.7) 3.0x10^3uL (1.8-7.7) Lymphocytes # (Auto) 0.7x10^3/uL (1.0-4.8) 1.0x10^3/uL (1.0-4.8) Monocytes # (Auto) 0.5x10^3/uL (0.0-1.1) 0.6x10^3/uL (0.0-1.1) Eosinophils # (Auto) 0.1x10^3/uL (0.0-0.7) 0.2x10^3/uL (0.0-0.7) Basophils # (Auto) 0.0x10^3/uL (0.0-0.2) 0.0x10^3/uL (0.0-0.2) Glucose (Fingerstick) 201mg/dL (70-99) Test 12/08/16 07:45 12/08/16 08:15 Glucose (Fingerstick) 79mg/dL (70-99) Prothrombin Time 14.1SEC (11.7-14.0) Prothromb Time International Ratio 1.2 (0.8-1.1) Laboratory Tests Test 12/07/16 16:20 12/07/16 17:25 12/07/16 21:53 12/08/16 05:30 Sodium Level 139mmol/L (136-145) 139mmol/L (136-145) Potassium Level 6.1mmol/L (3.5-5.1) 5.9mmol/L (3.5-5.1) Chloride Level 102mmol/L (98-107) 101mmol/L (98-107) Carbon Dioxide Level 24mmol/L (21-32) 21mmol/L (21-32) Anion Gap 13 (6-14) 17 (6-14) Blood Urea Nitrogen 77mg/dL (7-20) 83mg/dL (7-20) Creatinine 11.3mg/dL (0.6-1.0) 11.5mg/dL (0.6-1.0) Estimated GFR (Cockcroft-Gault) 4.3 4.2 BUN/Creatinine Ratio 7 (6-20) Glucose Level 197mg/dL (70-99) 94mg/dL (70-99) Calcium Level 8.9mg/dL (8.5-10.1) 8.7mg/dL (8.5-10.1) Total Bilirubin 0.6mg/dL (0.2-1.0) Aspartate Amino Transf (AST/SGOT) 56U/L (15-37) Alanine Aminotransferase (ALT/SGPT) 36U/L (14-59) Alkaline Phosphatase 135U/L (46-116) Total Protein 7.5g/dL (6.4-8.2) Albumin 2.7g/dL (3.4-5.0) Albumin/Globulin Ratio 0.6 (1.0-1.7) White Blood Count 4.4x10^3/uL (4.0-11.0) 4.9x10^3/uL (4.0-11.0) Red Blood Count 2.92x10^6/uL (3.50-5.40) 2.70x10^6/uL (3.50-5.40) Hemoglobin 9.1g/dL (12.0-15.5) 8.2g/dL (12.0-15.5) Hematocrit 28.0% (36.0-47.0) 25.6% (36.0-47.0) Mean Corpuscular Volume 96fL (79-100) 95fL (79-100) Mean Corpuscular Hemoglobin 31pg (25-35) 31pg (25-35) Mean Corpuscular Hemoglobin Concent 33g/dL (31-37) 32g/dL (31-37) Red Cell Distribution Width 18.3% (11.5-14.5) 18.7% (11.5-14.5) Platelet Count 138x10^3/uL (140-400) 138x10^3/uL (140-400) Neutrophils (%) (Auto) 71% (31-73) 62% (31-73) Lymphocytes (%) (Auto) 16% (24-48) 21% (24-48) Monocytes (%) (Auto) 11% (0-9) 13% (0-9) Eosinophils (%) (Auto) 2% (0-3) 4% (0-3) Basophils (%) (Auto) 1% (0-3) 1% (0-3) Neutrophils # (Auto) 3.1x10^3uL (1.8-7.7) 3.0x10^3uL (1.8-7.7) Lymphocytes # (Auto) 0.7x10^3/uL (1.0-4.8) 1.0x10^3/uL (1.0-4.8) Monocytes # (Auto) 0.5x10^3/uL (0.0-1.1) 0.6x10^3/uL (0.0-1.1) Eosinophils # (Auto) 0.1x10^3/uL (0.0-0.7) 0.2x10^3/uL (0.0-0.7) Basophils # (Auto) 0.0x10^3/uL (0.0-0.2) 0.0x10^3/uL (0.0-0.2) Glucose (Fingerstick) 201mg/dL (70-99) Test 12/08/16 07:45 12/08/16 08:15 Glucose (Fingerstick) 79mg/dL (70-99) Prothrombin Time 14.1SEC (11.7-14.0) Prothromb Time International Ratio 1.2 (0.8-1.1) SHYANNE TYLER MD Dec 08, 2016 10:56
[2016-12-08] MEDS ORDERED: IV NORMAL SALINE 1000ML BAG 1,000 ML IV PRN (11:25)
[2016-12-08] MEDS ORDERED: DIALYSIS PATIENT. MC PRN ×2 (11:30)
[2016-12-08] MEDS: INSULIN ASPART 300 UNITS/3 ML INSULN.PEN SQ SCH ×2 (12:00→17:00)
[2016-12-08] MEDS ORDERED: ACETAMINOPHEN 325 MG TABLET. PO PRN (12:30)
--- NOTE | 2016-12-08 13:15 | PDOC ---
Provider Note Provider Note Vascular Consult dictated Imp : Aneurysmal areas of Rt. UA fistula Plan: Schedule for PC and translocation, repair of aneurysmal areas, and revision of rt. UA fistula in OR next ROLA MEDRANO MD Dec 08, 2016 13:15
[2016-12-08 15:30] VITALS: BP 145/81
[2016-12-08 19:55] VITALS: BP 121/65
[2016-12-08] MEDS ORDERED: DARBEPOETIN ALFA 60 MCG/0.3 ML DISP.SYRIN. SQ SCH (21:00)
[2016-12-08] MEDS: ATORVASTATIN CALCIUM 20 MG TABLET PO SCH (21:09)
[2016-12-08] MEDS: OLANZapine 5 MG TABLET PO SCH (21:10)
[2016-12-08] MEDS: oxyCODONE IR 5 MG TABLET PO PRN (21:11)
[2016-12-08 23:45] VITALS: BP 131/68
--- NOTE | 2016-12-09 | CONS ---
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 HISTORY OF PRESENT ILLNESS: This is a 56-year-old black female who had placement of a right upper arm fistula at [facility] 5 years ago. She has developed some aneurysmal areas and some tenderness. A fistulogram showed that the fistula was widely patent with aneurysmal changes and no areas of stenosis. PAST MEDICAL HISTORY: Her main problem is her chronic renal failure on dialysis. Other illnesses include hypertension, which is the cause of her renal failure. She also has some diabetes and hyperparathyroidism. No history of any vascular problems elsewhere. ALLERGIES: TRAMADOL. MEDICATIONS: ____ she is not on aspirin. SOCIAL HISTORY: She is a smoker. PHYSICAL EXAMINATION: GENERAL: She presently is on dialysis and somewhat tearful. She is alert and oriented. CARDIOVASCULAR: Regular heart rate, nonlabored respirations. EXTREMITIES: She has got easily palpable pulse in her fistula and presently again dialyzed through that. There are some large aneurysmal areas. This is somewhat redundant fistula. There are lots of areas of the fistula, which are more normal size and redundant. 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 PLAN: I recommended a translocation of the right upper arm fistula with excision of the aneurysmal areas and then hopefully that will be enough redundant more normal size ____ together to maintain a fistula. If this was done under general anesthetic then she will not be able to use this for a month or 6 weeks, so we will also have to put a dialysis catheter in for that period of time. I discussed the nature of that operation with the patient to be done under general anesthetic and the risk of bleeding, infection and clotting. She does wish to proceed at this time, although she was offered the same procedure at last week and left AMA. We will tentatively schedule here for next Sunday. ROLA MEDRANO MD DR: SUNNY/mic JOB#: [id number] / [id number]
--- NOTE | 2016-12-09 00:54 | CONS ---
DATE OF CONSULTATION: 12/08/2016 LOCATION: She is in room 258. ATTENDING PHYSICIAN: Dr. Schaefer. The patient was seen at the request of Dr. Schaefer for rehab evaluation. HISTORY OF PRESENT ILLNESS: This is a 56-year-old right-handed female with known schizophrenia, chronic kidney failure with end-stage renal disease, on hemodialysis, admitted on 12/07/2016 with a nonfunctioning AV fistula. Last dialyzed at [facility] about 2 days prior to the hospitalization and at that time she was unable to complete dialysis due to nonworking fistula. The patient missed hemodialysis on Sunday and . She also complains of chronic neck and lower back pain with radiation to the extremities with some numbness in the right thigh. The patient with known hypertension, history of carpal tunnel syndrome, anemia, diabetes mellitus, hyperparathyroidism. She still smokes 1 pack of cigarettes per day. ALLERGIES: THE PATIENT IS KNOWN ALLERGIC TO TRAMADOL. PHYSICAL EXAMINATION: Today revealed a middle-aged female. She is alert, oriented to time, place, person and circumstance and follows commands appropriately. Moves all 4 extremities voluntarily where she had 5/5 grade muscle strength and deep tendon reflexes are absent at both knees and ankles and she had equal perception of touch and pinprick sensation bilaterally. Minimal tenderness to palpation over right sacroiliac joint area. Straight leg raising test is negative bilaterally. She is independent with bed mobility and transfers. I have not tested her ambulation skills at this time. She had pain free range of motion of all four extremity joints. She had edema of her lower extremities. ASSESSMENT: A middle-aged female with chronic neck and lower back pain, most probably from degenerative disk disease. No clinical evidence of ongoing cervical or lumbar radiculopathy. The patient with known end-stage renal disease, on hemodialysis; diabetes mellitus with peripheral neuropathy, schizophrenia, anemia. RECOMMENDATIONS: To try her with a lumbar corset. Dr. Schaefer, I appreciate asking me to participate in the care of this interesting patient. I will be glad to follow her with you as needed for her rehabilitation. AR NORMAN MD DR: RAHEEM/mic JOB#: [id number] / [id number]
--- NOTE | 2016-12-09 01:30 | CONS ---
DATE OF CONSULTATION: HISTORY OF PRESENT ILLNESS: The patient is a 56-year-old -[place] female who is pretty noncompliant with her outpatient dialysis schedule and regimen. She usually hops from hospital to hospital. She was discharged here towards the end of October. It appears that most recently she was at [facility]. This is unclear to me whether she signed out AMA or was discharged, but she claims she had problems with the staff there and presented to [place]. She told the ER physician that she had problems with her AV access. I was told that she was taken off of dialysis early. . ____ was kind enough to get a sonogram of her AV fistula and was noted to be patent, but she does have a 3.9 cm aneurysm. She was also noted to have elevated potassium on presentation, probably since she had not shown up to her outpatient dialysis for at least a month and a half to two months. In this setting, her care was discussed with me and we decided to admit her to the hospital to evaluate the functionality of her AV fistula as well as to see if that aneurysm needed further repair. Her hyperkalemia was treated in the ER with Kayexalate. For rest of detail, see electronic records. SHYANNE TYLER MD DR: JUDE/mic JOB#: [id number] / [id number]
[2016-12-09 03:00] VITALS: BP 146/73
[2016-12-09 07:10] VITALS: BP 129/81
[2016-12-09] MEDS: INSULIN ASPART 300 UNITS/3 ML INSULN.PEN SQ SCH ×3 (08:00→17:00)
[2016-12-09] MEDS: ONDANSETRON ODT 4 MG TAB.RAPDIS. PO PRN (08:10)
[2016-12-09] MEDS: DIVALPROEX DELAYED RELEASE 250 MG TABLET.DR. PO SCH ×3 (08:11→21:01)
[2016-12-09] MEDS: SERTRALINE 50 MG TABLET. PO SCH (08:11)
[2016-12-09] MEDS: risperiDONE 1 MG TABLET. PO SCH (08:12)
[2016-12-09] MEDS: lamoTRIgine 25 MG TABLET. PO SCH (08:12)
[2016-12-09] MEDS: SEVELAMER CARBONATE 800 MG TABLET. PO SCH ×3 (08:12→17:00)
[2016-12-09] MEDS: CARVEDILOL 12.5 MG TABLET. PO SCH ×2 (08:12→17:54)
[2016-12-09] MEDS: LEVOTHYROXINE 125 MCG TABLET PO SCH (08:12)
[2016-12-09] MEDS: GABAPENTIN 300 MG CAPSULE. PO SCH (08:13)
[2016-12-09] MEDS: amLODIPine BESYLATE 10 MG TABLET PO SCH (08:13)
[2016-12-09] MEDS: CALCIUM ACETATE 667 MG CAPSULE PO SCH ×3 (08:13→17:53)
[2016-12-09] MEDS: ALPRAZolam 0.5 MG TABLET PO PRN (08:13)
[2016-12-09] MEDS: NICOTINE 21MG PATCH. TD SCH (08:14)
[2016-12-09] MEDS: oxyCODONE IR 5 MG TABLET PO PRN ×2 (08:14→18:00)
--- NOTE | 2016-12-09 10:24 | PDOC ---
PROGRESS NOTES Subjective Subjective No new complaints. Objective Objective Vital Signs Date Time Temp Pulse Resp B/P Pulse Ox O2 Delivery O2 Flow Rate FiO2 12/09/16 09:46 16 12/09/16 08:14 Room Air 12/09/16 08:13 82 129/81 12/09/16 07:10 98.8 89 98.8 Intake and Output 12/09/16 07:00 Intake Total 1530 ml Balance 1530 ml Intake Oral 1530 ml # Voids 2 Physical Exam Physical Exam Her back pain in under control and lumbar corset is helping. Assessment Assessment Problems Medical Problems: (1) Acute on chronic renal failure Status: Acute (2) ESRD (end stage renal disease) Status: Acute (3) Hyperkalemia Status: Acute Plan Plan of Care To residential facility when arrangements are completed. Comment Review of Relevant I have reviewed the following items hemal (where applicable) has been applied. Labs Laboratory Tests Test 12/07/16 16:20 12/07/16 17:25 12/07/16 21:53 12/08/16 05:30 Sodium Level 139mmol/L (136-145) 139mmol/L (136-145) Potassium Level 6.1mmol/L (3.5-5.1) 5.9mmol/L (3.5-5.1) Chloride Level 102mmol/L (98-107) 101mmol/L (98-107) Carbon Dioxide Level 24mmol/L (21-32) 21mmol/L (21-32) Anion Gap 13 (6-14) 17 (6-14) Blood Urea Nitrogen 77mg/dL (7-20) 83mg/dL (7-20) Creatinine 11.3mg/dL (0.6-1.0) 11.5mg/dL (0.6-1.0) Estimated GFR (Cockcroft-Gault) 4.3 4.2 BUN/Creatinine Ratio 7 (6-20) Glucose Level 197mg/dL (70-99) 94mg/dL (70-99) Calcium Level 8.9mg/dL (8.5-10.1) 8.7mg/dL (8.5-10.1) Total Bilirubin 0.6mg/dL (0.2-1.0) Aspartate Amino Transf (AST/SGOT) 56U/L (15-37) Alanine Aminotransferase (ALT/SGPT) 36U/L (14-59) Alkaline Phosphatase 135U/L (46-116) Total Protein 7.5g/dL (6.4-8.2) Albumin 2.7g/dL (3.4-5.0) Albumin/Globulin Ratio 0.6 (1.0-1.7) White Blood Count 4.4x10^3/uL (4.0-11.0) 4.9x10^3/uL (4.0-11.0) Red Blood Count 2.92x10^6/uL (3.50-5.40) 2.70x10^6/uL (3.50-5.40) Hemoglobin 9.1g/dL (12.0-15.5) 8.2g/dL (12.0-15.5) Hematocrit 28.0% (36.0-47.0) 25.6% (36.0-47.0) Mean Corpuscular Volume 96fL (79-100) 95fL (79-100) Mean Corpuscular Hemoglobin 31pg (25-35) 31pg (25-35) Mean Corpuscular Hemoglobin Concent 33g/dL (31-37) 32g/dL (31-37) Red Cell Distribution Width 18.3% (11.5-14.5) 18.7% (11.5-14.5) Platelet Count 138x10^3/uL (140-400) 138x10^3/uL (140-400) Neutrophils (%) (Auto) 71% (31-73) 62% (31-73) Lymphocytes (%) (Auto) 16% (24-48) 21% (24-48) Monocytes (%) (Auto) 11% (0-9) 13% (0-9) Eosinophils (%) (Auto) 2% (0-3) 4% (0-3) Basophils (%) (Auto) 1% (0-3) 1% (0-3) Neutrophils # (Auto) 3.1x10^3uL (1.8-7.7) 3.0x10^3uL (1.8-7.7) Lymphocytes # (Auto) 0.7x10^3/uL (1.0-4.8) 1.0x10^3/uL (1.0-4.8) Monocytes # (Auto) 0.5x10^3/uL (0.0-1.1) 0.6x10^3/uL (0.0-1.1) Eosinophils # (Auto) 0.1x10^3/uL (0.0-0.7) 0.2x10^3/uL (0.0-0.7) Basophils # (Auto) 0.0x10^3/uL (0.0-0.2) 0.0x10^3/uL (0.0-0.2) Glucose (Fingerstick) 201mg/dL (70-99) Test 12/08/16 07:45 12/08/16 08:15 12/08/16 12:07 12/08/16 16:09 Glucose (Fingerstick) 79mg/dL (70-99) 104mg/dL (70-99) 111mg/dL (70-99) Prothrombin Time 14.1SEC (11.7-14.0) Prothromb Time International Ratio 1.2 (0.8-1.1) Test 12/08/16 20:52 Glucose (Fingerstick) 189mg/dL (70-99) Laboratory Tests Test 12/08/16 12:07 12/08/16 16:09 12/08/16 20:52 Glucose (Fingerstick) 104mg/dL (70-99) 111mg/dL (70-99) 189mg/dL (70-99) Medications Current Medications Acetaminophen/ Hydrocodone Bitart (Lortab 5/325) 1 tab 1X ONCE PO Last administered on 12/07/16 17:00; Start 12/07/16 at 17:00; Stop 12/07/16 at 17:01 ; Status DC Sodium Polystyrene Sulfonate (Kayexalate) 30 gm 1X ONCE PO Last administered on 12/07/16 18:50; Start 12/07/16 at 18:45; Stop 12/07/16 at 18:46; Status DC Ondansetron HCl (Zofran) 4 mg PRN Q8HRS PRN IV NAUSEA/VOMITING; Start 12/07/16 at 19:00; Stop 12/08/16 at 18:59; Status DC Alprazolam (Xanax) 0.5 mg PRN Q8HRS PRN PO ANXIETY / AGITATION Last administered on 12/09/16 08:13; Start 12/07/16 at 21:30 Amlodipine Besylate (Norvasc) 10 mg DAILY PO Last administered on 12/09/16 08: 13; Start 12/08/16 at 09:00 Calcium Acetate (Phoslo) 667 mg TIDWMEALS PO Last administered on 12/09/16 08: 13; Start 12/08/16 at 08:00 Carvedilol (Coreg) 12.5 mg BIDWMEALS PO Last administered on 12/09/16 08:12; Start 12/08/16 at 08:00 Divalproex Sodium (Depakote) 250 mg TID PO Last administered on 12/09/16 08:11 ; Start 12/08/16 at 09:00 Hydralazine HCl (Apresoline) 50 mg QID PO Last administered on 12/09/16 08:11 ; Start 12/08/16 at 09:00 Lamotrigine (LaMICtal) 25 mg DAILY PO Last administered on 12/09/16 08:12; Start 12/08/16 at 09:00 Levothyroxine Sodium (Synthroid) 125 mcg DAILYAC PO Last administered on 08:12; Start 12/08/16 at 07:30 Nicotine (Nicoderm Cq 21mg) 1 patch DAILY TD Last administered on 12/09/16 08: 14; Start 12/08/16 at 06:00 Ondansetron HCl (Zofran Odt) 4 mg PRN Q8HRS PRN PO nausea Last administered on 12/09/16 08:10; Start 12/07/16 at 21:30 Atorvastatin Calcium (Lipitor) 20 mg QHS PO Last administered on 12/08/16 21: 09; Start 12/08/16 at 21:00 Gabapentin (Neurontin) 300 mg DAILY PO Last administered on 12/09/16 08:13; Start 12/08/16 at 09:00 Olanzapine (Zyprexa) 10 mg QHS PO Last administered on 12/08/16 21:10; Start 12/07/16 at 21:45 Oxycodone HCl (Roxicodone) 10 mg PRN BID PRN PO SEVERE PAIN Last administered on 12/09/16 08:14; Start 12/07/16 at 21:45 Risperidone (Risperdal) 4 mg DAILY PO Last administered on 12/09/16 08:12; Start 12/08/16 at 09:00 Sertraline HCl (Zoloft) 200 mg DAILY PO Last administered on 12/09/16 08:11; Start 12/08/16 at 09:00 Sevelamer Carbonate (Renvela) 800 mg TIDWMEALS PO Last administered on 08:12; Start 12/08/16 at 08:00 Zolpidem Tartrate (Ambien) 5 mg PRN QHS PRN PO INSOMNIA, MAY REPEAT IN 1HR; Start 12/07/16 at 22:00 Furosemide (Lasix) 100 mg 1X ONCE IVP Last administered on 12/07/16 22:51; Start 12/07/16 at 22:30; Stop 12/07/16 at 22:31; Status DC Insulin Aspart (Novolog) 0-5 UNITS TIDWMEALS SQ ; Start 12/08/16 at 12:00 Dextrose (Dextrose 50%-Water Syringe) 12.5 gm PRN Q15MIN PRN IV SEE COMMENTS; Start 12/08/16 at 09:15 Darbepoetin Sourav 60 mcg 60 mcg WEEKLYHS SQ Last administered on 12/08/16 21:12 ; Start 12/08/16 at 21:00 Sodium Chloride (Iv Sodium Chloride 0.9% 1000ml Bag) 1,000 ml @ 1,000 mls/hr Q1H PRN IV hypotension; Start 12/08/16 at 11:25; Stop 12/08/16 at 17:24; Status DC Info (PHARMACY MONITORING -- do not chart) 1 each PRN DAILY PRN MC SEE COMMENTS ; Start 12/08/16 at 11:30; Status UNV Info (PHARMACY MONITORING -- do not chart) 1 each PRN DAILY PRN MC SEE COMMENTS ; Start 12/08/16 at 11:30 Acetaminophen (Tylenol) 650 mg PRN Q6HRS PRN PO PAIN Last administered on 12:47; Start 12/08/16 at 12:30 Active Scripts Active Percocet 5-325 Mg Tablet (Oxycodone/Acetaminophen) 1 Each Tablet 1 Tab PO QID PRN Alprazolam 0.5 Mg Tablet 0.5 Mg PO Q8HRS PRN Oxycodone Hcl 10 Mg Tablet 1 Tab PO PRN BID PRN Olanzapine Odt (Olanzapine) 10 Mg Tab.rapdis 10 Mg PO QHS Lamotrigine 25 Mg Tablet 25 Mg PO DAILY 30 Days Zoloft (Sertraline Hcl) 100 Mg Tablet 200 Mg PO DAILY Risperidone 4 Mg Tablet 4 Mg PO DAILY Zofran Odt (Ondansetron) 4 Mg Tab.rapdis 1 Tab SL Q8HRS Reported NICODERM CQ 21mg (Nicotine) 1 Each Patch.td24 1 Patch TP DAILY Depakote (Divalproex Sodium) 250 Mg Tablet.dr 250 Mg PO TID Amlodipine Besylate 10 Mg Tablet 10 Mg PO DAILY Hydralazine Hcl 50 Mg Tablet 50 Mg PO QID Renagel (Sevelamer Hcl) 800 Mg Tablet 800 Mg PO TIDWMEALS Simvastatin 40 Mg Tablet 40 Mg PO HS Levothyroxine Sodium 125 Mcg Tablet 125 Mcg PO DAILYAC Gabapentin 300 Mg Capsule 300 Mg PO DAILY Phoslo (Calcium Acetate) 667 Mg Capsule 667 Mg PO TIDWMEALS Carvedilol 12.5 Mg Tablet 12.5 Mg PO BIDWMEALS Vitals/I & O Vital Sign - Last 24 Hours 12/08/16 12/08/16 12/08/16 12/08/16 15:30 16:24 16:24 19:55 Temp 98.1 98.5 98.1 98.5 Pulse 88 88 88 80 Resp 17 20 B/P 145/81 145/81 145/81 121/65 Pulse Ox 92 95 O2 Delivery Room Air Room Air 12/08/16 12/08/16 12/08/16 12/08/16 20:00 21:09 21:11 22:11 Pulse 80 B/P 121/65 O2 Delivery Room Air Room Air Room Air 12/08/16 12/09/16 12/09/16 12/09/16 23:45 03:00 07:10 08:00 Temp 98.3 98.1 98.8 98.3 98.1 98.8 Pulse 83 85 82 Resp 21 18 20 B/P 131/68 146/73 129/81 Pulse Ox 95 98 89 O2 Delivery Room Air Room Air Room Air Room Air 12/09/16 12/09/16 12/09/16 12/09/16 08:11 08:12 08:13 08:14 Pulse 82 82 82 Resp 18 B/P 129/81 129/81 129/81 O2 Delivery Room Air 12/09/16 09:46 Resp 16 Intake and Output 12/08/16 12/08/16 12/09/16 15:00 23:00 07:00 Intake Total 1200 ml 330 ml Balance 1200 ml 330 ml Nutrition Consultation Dietary Evaluation: Recommendations by RD: Increase Calorie Intake, Protein supplementation Comments: Add Novasource Renal at lunch Discussed the potassium content of foods and provided an education handout Expected Outcomes/Goals: meet 75% estimated nutrition needs Malnutrition Findings: Reduced Rad Tech Strength: N/A Weight Status: Obese Fluid Accumulation (N/A): N/A AR NORMAN MD Dec 09, 2016 10:24
[2016-12-09 11:00] VITALS: BP 118/79
[2016-12-09 12:03] VITALS: BP 118/79
--- NOTE | 2016-12-09 14:00 | PDOC ---
PROGRESS NOTES Chief Complaint Chief Complaint cc: ESRD, uremia, nonadherence with hemodialysis ESRD Schizophrenia HTN Anemia Diabetes Mellitus hyperparathyroidism tobacco use carpal tunnel disease. History of Present Illness History of Present Illness Patient seen and evaluated at bedside. No acute events overnight. Patient resting comfortably, in no apparent distress. No complaints at this time. Per nursing, psychiatric social worker is working to address her living situation as she is currently homeless. Vitals Vitals Vital Signs Date Time Temp Pulse Resp B/P Pulse Ox O2 Delivery O2 Flow Rate FiO2 12/09/16 12:35 82 118/79 12/09/16 12:03 98.8 89 Room Air 98.8 12/09/16 09:46 16 Physical Exam General: Alert, Oriented X3, Cooperative, No acute distress Heart: Regular rate, Normal S1 Lungs: Clear, Other (negative chest retractions and/or other accessory muscle use. ) Abdomen: Normal bowel sounds, Soft, No tenderness Extremities: No clubbing, No edema, Other (AV fistula to RUE with palpable thrill. negative bleeding or signs of infection. ) Skin: No rashes Labs LABS Laboratory Tests Test 12/08/16 16:09 12/08/16 20:52 12/09/16 07:15 12/09/16 13:30 Glucose (Fingerstick) 111mg/dL (70-99) 189mg/dL (70-99) 102mg/dL (70-99) Potassium Level 5.1mmol/L (3.5-5.1) Review of Systems Review of Systems (+) acute on chronic back pain, improved with brace Denies chest pain, palpitations, sob, abdominal pain, n/v/d, lightheadedness/ dizziness, or fever/chills. Assessment and Plan Assessmemt and Plan Problems Medical Problems: (1) Acute on chronic renal failure Status: Acute (2) ESRD (end stage renal disease) Status: Acute (3) Hyperkalemia Status: Acute Assessment: 1.) Aneursym to AV fistula 2.) ESRD, Tues/thurs/sat., nonadherence to hemodialysis 3.) hyperkalemia 4.) schizophrenia 5.) anemia of chronic disease 6.) HTN 7.) chronic diastolic HF 8.) hyperlipidemia 9.) depression vs. bipolar type II 10.) acute on chronic back pain; improved with back brace. 11.) hyperlipidemia Plan: 1.) psychiatric social worker to address living situation and coordinate with resources for patient 2.) Plan for fistula repair on Sunday (12/12/16) per vascular surgery 3.) start kayleaxate to address hyperkalemia; may consider another dose of lasix to remove total body potassium 4.) monitor AM labs 5.) appreciate subspecialty input 6.) PT/OT 7.) continue hemodialysis management, per nephrology. 8.) continue home medications as appropriate 9.) SSI with glucose checks AC Problems: Comment Review of Relevant I have reviewed the following items hemal (where applicable) has been applied. Labs Laboratory Tests Test 12/07/16 16:20 12/07/16 17:25 12/07/16 21:53 12/08/16 05:30 Sodium Level 139mmol/L (136-145) 139mmol/L (136-145) Potassium Level 6.1mmol/L (3.5-5.1) 5.9mmol/L (3.5-5.1) Chloride Level 102mmol/L (98-107) 101mmol/L (98-107) Carbon Dioxide Level 24mmol/L (21-32) 21mmol/L (21-32) Anion Gap 13 (6-14) 17 (6-14) Blood Urea Nitrogen 77mg/dL (7-20) 83mg/dL (7-20) Creatinine 11.3mg/dL (0.6-1.0) 11.5mg/dL (0.6-1.0) Estimated GFR (Cockcroft-Gault) 4.3 4.2 BUN/Creatinine Ratio 7 (6-20) Glucose Level 197mg/dL (70-99) 94mg/dL (70-99) Calcium Level 8.9mg/dL (8.5-10.1) 8.7mg/dL (8.5-10.1) Total Bilirubin 0.6mg/dL (0.2-1.0) Aspartate Amino Transf (AST/SGOT) 56U/L (15-37) Alanine Aminotransferase (ALT/SGPT) 36U/L (14-59) Alkaline Phosphatase 135U/L (46-116) Total Protein 7.5g/dL (6.4-8.2) Albumin 2.7g/dL (3.4-5.0) Albumin/Globulin Ratio 0.6 (1.0-1.7) White Blood Count 4.4x10^3/uL (4.0-11.0) 4.9x10^3/uL (4.0-11.0) Red Blood Count 2.92x10^6/uL (3.50-5.40) 2.70x10^6/uL (3.50-5.40) Hemoglobin 9.1g/dL (12.0-15.5) 8.2g/dL (12.0-15.5) Hematocrit 28.0% (36.0-47.0) 25.6% (36.0-47.0) Mean Corpuscular Volume 96fL (79-100) 95fL (79-100) Mean Corpuscular Hemoglobin 31pg (25-35) 31pg (25-35) Mean Corpuscular Hemoglobin Concent 33g/dL (31-37) 32g/dL (31-37) Red Cell Distribution Width 18.3% (11.5-14.5) 18.7% (11.5-14.5) Platelet Count 138x10^3/uL (140-400) 138x10^3/uL (140-400) Neutrophils (%) (Auto) 71% (31-73) 62% (31-73) Lymphocytes (%) (Auto) 16% (24-48) 21% (24-48) Monocytes (%) (Auto) 11% (0-9) 13% (0-9) Eosinophils (%) (Auto) 2% (0-3) 4% (0-3) Basophils (%) (Auto) 1% (0-3) 1% (0-3) Neutrophils # (Auto) 3.1x10^3uL (1.8-7.7) 3.0x10^3uL (1.8-7.7) Lymphocytes # (Auto) 0.7x10^3/uL (1.0-4.8) 1.0x10^3/uL (1.0-4.8) Monocytes # (Auto) 0.5x10^3/uL (0.0-1.1) 0.6x10^3/uL (0.0-1.1) Eosinophils # (Auto) 0.1x10^3/uL (0.0-0.7) 0.2x10^3/uL (0.0-0.7) Basophils # (Auto) 0.0x10^3/uL (0.0-0.2) 0.0x10^3/uL (0.0-0.2) Glucose (Fingerstick) 201mg/dL (70-99) Test 12/08/16 07:45 12/08/16 08:15 12/08/16 12:07 12/08/16 16:09 Glucose (Fingerstick) 79mg/dL (70-99) 104mg/dL (70-99) 111mg/dL (70-99) Prothrombin Time 14.1SEC (11.7-14.0) Prothromb Time International Ratio 1.2 (0.8-1.1) Test 12/08/16 20:52 12/09/16 07:15 12/09/16 13:30 Glucose (Fingerstick) 189mg/dL (70-99) 102mg/dL (70-99) Potassium Level 5.1mmol/L (3.5-5.1) Laboratory Tests Test 12/08/16 16:09 12/08/16 20:52 12/09/16 07:15 12/09/16 13:30 Glucose (Fingerstick) 111mg/dL (70-99) 189mg/dL (70-99) 102mg/dL (70-99) Potassium Level 5.1mmol/L (3.5-5.1) Medications Current Medications Acetaminophen/ Hydrocodone Bitart (Lortab 5/325) 1 tab 1X ONCE PO Last administered on 12/07/16 17:00; Start 12/07/16 at 17:00; Stop 12/07/16 at 17:01 ; Status DC Sodium Polystyrene Sulfonate (Kayexalate) 30 gm 1X ONCE PO Last administered on 12/07/16 18:50; Start 12/07/16 at 18:45; Stop 12/07/16 at 18:46; Status DC Ondansetron HCl (Zofran) 4 mg PRN Q8HRS PRN IV NAUSEA/VOMITING; Start 12/07/16 at 19:00; Stop 12/08/16 at 18:59; Status DC Alprazolam (Xanax) 0.5 mg PRN Q8HRS PRN PO ANXIETY / AGITATION Last administered on 12/09/16 08:13; Start 12/07/16 at 21:30 Amlodipine Besylate (Norvasc) 10 mg DAILY PO Last administered on 12/09/16 08: 13; Start 12/08/16 at 09:00 Calcium Acetate (Phoslo) 667 mg TIDWMEALS PO Last administered on 12/09/16 12: 34; Start 12/08/16 at 08:00 Carvedilol (Coreg) 12.5 mg BIDWMEALS PO Last administered on 12/09/16 08:12; Start 12/08/16 at 08:00 Divalproex Sodium (Depakote) 250 mg TID PO Last administered on 12/09/16 08:11 ; Start 12/08/16 at 09:00 Hydralazine HCl (Apresoline) 50 mg QID PO Last administered on 12/09/16 12:35 ; Start 12/08/16 at 09:00 Lamotrigine (LaMICtal) 25 mg DAILY PO Last administered on 12/09/16 08:12; Start 12/08/16 at 09:00 Levothyroxine Sodium (Synthroid) 125 mcg DAILYAC PO Last administered on 08:12; Start 12/08/16 at 07:30 Nicotine (Nicoderm Cq 21mg) 1 patch DAILY TD Last administered on 12/09/16 08: 14; Start 12/08/16 at 06:00 Ondansetron HCl (Zofran Odt) 4 mg PRN Q8HRS PRN PO nausea Last administered on 12/09/16 08:10; Start 12/07/16 at 21:30 Atorvastatin Calcium (Lipitor) 20 mg QHS PO Last administered on 12/08/16 21: 09; Start 12/08/16 at 21:00 Gabapentin (Neurontin) 300 mg DAILY PO Last administered on 12/09/16 08:13; Start 12/08/16 at 09:00 Olanzapine (Zyprexa) 10 mg QHS PO Last administered on 12/08/16 21:10; Start 12/07/16 at 21:45 Oxycodone HCl (Roxicodone) 10 mg PRN BID PRN PO SEVERE PAIN Last administered on 12/09/16 08:14; Start 12/07/16 at 21:45 Risperidone (Risperdal) 4 mg DAILY PO Last administered on 12/09/16 08:12; Start 12/08/16 at 09:00 Sertraline HCl (Zoloft) 200 mg DAILY PO Last administered on 12/09/16 08:11; Start 12/08/16 at 09:00 Sevelamer Carbonate (Renvela) 800 mg TIDWMEALS PO Last administered on 12:35; Start 12/08/16 at 08:00 Zolpidem Tartrate (Ambien) 5 mg PRN QHS PRN PO INSOMNIA, MAY REPEAT IN 1HR; Start 12/07/16 at 22:00 Furosemide (Lasix) 100 mg 1X ONCE IVP Last administered on 12/07/16 22:51; Start 12/07/16 at 22:30; Stop 12/07/16 at 22:31; Status DC Insulin Aspart (Novolog) 0-5 UNITS TIDWMEALS SQ ; Start 12/08/16 at 12:00 Dextrose (Dextrose 50%-Water Syringe) 12.5 gm PRN Q15MIN PRN IV SEE COMMENTS; Start 12/08/16 at 09:15 Darbepoetin Sourav 60 mcg 60 mcg WEEKLYHS SQ Last administered on 12/08/16 21:12 ; Start 12/08/16 at 21:00 Sodium Chloride (Iv Sodium Chloride 0.9% 1000ml Bag) 1,000 ml @ 1,000 mls/hr Q1H PRN IV hypotension; Start 12/08/16 at 11:25; Stop 12/08/16 at 17:24; Status DC Info (PHARMACY MONITORING -- do not chart) 1 each PRN DAILY PRN MC SEE COMMENTS ; Start 12/08/16 at 11:30; Status UNV Info (PHARMACY MONITORING -- do not chart) 1 each PRN DAILY PRN MC SEE COMMENTS ; Start 12/08/16 at 11:30 Acetaminophen (Tylenol) 650 mg PRN Q6HRS PRN PO PAIN Last administered on 12:47; Start 12/08/16 at 12:30 Active Scripts Active Percocet 5-325 Mg Tablet (Oxycodone/Acetaminophen) 1 Each Tablet 1 Tab PO QID PRN Alprazolam 0.5 Mg Tablet 0.5 Mg PO Q8HRS PRN Oxycodone Hcl 10 Mg Tablet 1 Tab PO PRN BID PRN Olanzapine Odt (Olanzapine) 10 Mg Tab.rapdis 10 Mg PO QHS Lamotrigine 25 Mg Tablet 25 Mg PO DAILY 30 Days Zoloft (Sertraline Hcl) 100 Mg Tablet 200 Mg PO DAILY Risperidone 4 Mg Tablet 4 Mg PO DAILY Zofran Odt (Ondansetron) 4 Mg Tab.rapdis 1 Tab SL Q8HRS Reported NICODERM CQ 21mg (Nicotine) 1 Each Patch.td24 1 Patch TP DAILY Depakote (Divalproex Sodium) 250 Mg Tablet.dr 250 Mg PO TID Amlodipine Besylate 10 Mg Tablet 10 Mg PO DAILY Hydralazine Hcl 50 Mg Tablet 50 Mg PO QID Renagel (Sevelamer Hcl) 800 Mg Tablet 800 Mg PO TIDWMEALS Simvastatin 40 Mg Tablet 40 Mg PO HS Levothyroxine Sodium 125 Mcg Tablet 125 Mcg PO DAILYAC Gabapentin 300 Mg Capsule 300 Mg PO DAILY Phoslo (Calcium Acetate) 667 Mg Capsule 667 Mg PO TIDWMEALS Carvedilol 12.5 Mg Tablet 12.5 Mg PO BIDWMEALS Vitals/I & O Vital Sign - Last 24 Hours 12/08/16 12/08/16 12/08/16 12/08/16 15:30 16:24 16:24 19:55 Temp 98.1 98.5 98.1 98.5 Pulse 88 88 88 80 Resp 17 20 B/P 145/81 145/81 145/81 121/65 Pulse Ox 92 95 O2 Delivery Room Air Room Air 12/08/16 12/08/16 12/08/16 12/08/16 20:00 21:09 21:11 22:11 Pulse 80 B/P 121/65 O2 Delivery Room Air Room Air Room Air 12/08/16 12/09/16 12/09/16 12/09/16 23:45 03:00 07:10 08:00 Temp 98.3 98.1 98.8 98.3 98.1 98.8 Pulse 83 85 82 Resp 21 18 20 B/P 131/68 146/73 129/81 Pulse Ox 95 98 89 O2 Delivery Room Air Room Air Room Air Room Air 12/09/16 12/09/16 12/09/16 12/09/16 08:11 08:12 08:13 08:14 Pulse 82 82 82 Resp 18 B/P 129/81 129/81 129/81 O2 Delivery Room Air 12/09/16 12/09/16 12/09/16 12/09/16 09:46 11:00 12:03 12:35 Temp 98.8 98.8 98.8 98.8 Pulse 82 82 82 Resp 16 B/P 118/79 118/79 118/79 Pulse Ox 89 89 O2 Delivery Room Air Room Air Intake and Output 12/08/16 12/08/16 12/09/16 15:00 23:00 07:00 Intake Total 1200 ml 330 ml Balance 1200 ml 330 ml Nutrition Consultation Dietary Evaluation: Recommendations by RD: Increase Calorie Intake, Protein supplementation Comments: Add Novasource Renal at lunch Discussed the potassium content of foods and provided an education handout Expected Outcomes/Goals: meet 75% estimated nutrition needs Malnutrition Findings: Reduced Warper Fixer Strength: N/A Weight Status: Obese Fluid Accumulation (N/A): N/A MEE ALFONSO III DO Dec 09, 2016 14:00
--- NOTE | 2016-12-09 14:13 | PDOC ---
PROGRESS NOTES Chief Complaint Chief Complaint cc: ESRD, uremia, nonadherence with hemodialysis ESRD Schizophrenia HTN Anemia Diabetes Mellitus hyperparathyroidism tobacco use carpal tunnel disease. History of Present Illness History of Present Illness out to smoke (unbeknownst to staff). apparently has record of this Vitals Vitals Vital Signs Date Time Temp Pulse Resp B/P Pulse Ox O2 Delivery O2 Flow Rate FiO2 12/09/16 12:35 82 118/79 12/09/16 12:03 98.8 89 Room Air 98.8 12/09/16 09:46 16 Physical Exam General: Alert, Oriented X3, Cooperative, No acute distress Heart: Regular rate Lungs: Clear Abdomen: Normal bowel sounds, Soft, No tenderness Extremities: No clubbing, No edema Skin: No rashes Labs LABS Laboratory Tests Test 12/08/16 16:09 12/08/16 20:52 12/09/16 07:15 12/09/16 13:30 Glucose (Fingerstick) 111mg/dL (70-99) 189mg/dL (70-99) 102mg/dL (70-99) Potassium Level 5.1mmol/L (3.5-5.1) Assessment and Plan Assessmemt and Plan Problems Medical Problems: (1) Acute on chronic renal failure Status: Acute (2) ESRD (end stage renal disease) Status: Acute (3) Hyperkalemia Status: Acute Problems: Comment Review of Relevant I have reviewed the following items hemal (where applicable) has been applied. Labs Laboratory Tests Test 12/07/16 16:20 12/07/16 17:25 12/07/16 21:53 12/08/16 05:30 Sodium Level 139mmol/L (136-145) 139mmol/L (136-145) Potassium Level 6.1mmol/L (3.5-5.1) 5.9mmol/L (3.5-5.1) Chloride Level 102mmol/L (98-107) 101mmol/L (98-107) Carbon Dioxide Level 24mmol/L (21-32) 21mmol/L (21-32) Anion Gap 13 (6-14) 17 (6-14) Blood Urea Nitrogen 77mg/dL (7-20) 83mg/dL (7-20) Creatinine 11.3mg/dL (0.6-1.0) 11.5mg/dL (0.6-1.0) Estimated GFR (Cockcroft-Gault) 4.3 4.2 BUN/Creatinine Ratio 7 (6-20) Glucose Level 197mg/dL (70-99) 94mg/dL (70-99) Calcium Level 8.9mg/dL (8.5-10.1) 8.7mg/dL (8.5-10.1) Total Bilirubin 0.6mg/dL (0.2-1.0) Aspartate Amino Transf (AST/SGOT) 56U/L (15-37) Alanine Aminotransferase (ALT/SGPT) 36U/L (14-59) Alkaline Phosphatase 135U/L (46-116) Total Protein 7.5g/dL (6.4-8.2) Albumin 2.7g/dL (3.4-5.0) Albumin/Globulin Ratio 0.6 (1.0-1.7) White Blood Count 4.4x10^3/uL (4.0-11.0) 4.9x10^3/uL (4.0-11.0) Red Blood Count 2.92x10^6/uL (3.50-5.40) 2.70x10^6/uL (3.50-5.40) Hemoglobin 9.1g/dL (12.0-15.5) 8.2g/dL (12.0-15.5) Hematocrit 28.0% (36.0-47.0) 25.6% (36.0-47.0) Mean Corpuscular Volume 96fL (79-100) 95fL (79-100) Mean Corpuscular Hemoglobin 31pg (25-35) 31pg (25-35) Mean Corpuscular Hemoglobin Concent 33g/dL (31-37) 32g/dL (31-37) Red Cell Distribution Width 18.3% (11.5-14.5) 18.7% (11.5-14.5) Platelet Count 138x10^3/uL (140-400) 138x10^3/uL (140-400) Neutrophils (%) (Auto) 71% (31-73) 62% (31-73) Lymphocytes (%) (Auto) 16% (24-48) 21% (24-48) Monocytes (%) (Auto) 11% (0-9) 13% (0-9) Eosinophils (%) (Auto) 2% (0-3) 4% (0-3) Basophils (%) (Auto) 1% (0-3) 1% (0-3) Neutrophils # (Auto) 3.1x10^3uL (1.8-7.7) 3.0x10^3uL (1.8-7.7) Lymphocytes # (Auto) 0.7x10^3/uL (1.0-4.8) 1.0x10^3/uL (1.0-4.8) Monocytes # (Auto) 0.5x10^3/uL (0.0-1.1) 0.6x10^3/uL (0.0-1.1) Eosinophils # (Auto) 0.1x10^3/uL (0.0-0.7) 0.2x10^3/uL (0.0-0.7) Basophils # (Auto) 0.0x10^3/uL (0.0-0.2) 0.0x10^3/uL (0.0-0.2) Glucose (Fingerstick) 201mg/dL (70-99) Test 12/08/16 07:45 12/08/16 08:15 12/08/16 12:07 12/08/16 16:09 Glucose (Fingerstick) 79mg/dL (70-99) 104mg/dL (70-99) 111mg/dL (70-99) Prothrombin Time 14.1SEC (11.7-14.0) Prothromb Time International Ratio 1.2 (0.8-1.1) Test 12/08/16 20:52 12/09/16 07:15 12/09/16 13:30 Glucose (Fingerstick) 189mg/dL (70-99) 102mg/dL (70-99) Potassium Level 5.1mmol/L (3.5-5.1) Laboratory Tests Test 12/08/16 16:09 12/08/16 20:52 12/09/16 07:15 12/09/16 13:30 Glucose (Fingerstick) 111mg/dL (70-99) 189mg/dL (70-99) 102mg/dL (70-99) Potassium Level 5.1mmol/L (3.5-5.1) Medications Current Medications Acetaminophen/ Hydrocodone Bitart (Lortab 5/325) 1 tab 1X ONCE PO Last administered on 12/07/16 17:00; Start 12/07/16 at 17:00; Stop 12/07/16 at 17:01 ; Status DC Sodium Polystyrene Sulfonate (Kayexalate) 30 gm 1X ONCE PO Last administered on 12/07/16 18:50; Start 12/07/16 at 18:45; Stop 12/07/16 at 18:46; Status DC Ondansetron HCl (Zofran) 4 mg PRN Q8HRS PRN IV NAUSEA/VOMITING; Start 12/07/16 at 19:00; Stop 12/08/16 at 18:59; Status DC Alprazolam (Xanax) 0.5 mg PRN Q8HRS PRN PO ANXIETY / AGITATION Last administered on 12/09/16 08:13; Start 12/07/16 at 21:30 Amlodipine Besylate (Norvasc) 10 mg DAILY PO Last administered on 12/09/16 08: 13; Start 12/08/16 at 09:00 Calcium Acetate (Phoslo) 667 mg TIDWMEALS PO Last administered on 12/09/16 12: 34; Start 12/08/16 at 08:00 Carvedilol (Coreg) 12.5 mg BIDWMEALS PO Last administered on 12/09/16 08:12; Start 12/08/16 at 08:00 Divalproex Sodium (Depakote) 250 mg TID PO Last administered on 12/09/16 08:11 ; Start 12/08/16 at 09:00 Hydralazine HCl (Apresoline) 50 mg QID PO Last administered on 12/09/16 12:35 ; Start 12/08/16 at 09:00 Lamotrigine (LaMICtal) 25 mg DAILY PO Last administered on 12/09/16 08:12; Start 12/08/16 at 09:00 Levothyroxine Sodium (Synthroid) 125 mcg DAILYAC PO Last administered on 08:12; Start 12/08/16 at 07:30 Nicotine (Nicoderm Cq 21mg) 1 patch DAILY TD Last administered on 12/09/16 08: 14; Start 12/08/16 at 06:00 Ondansetron HCl (Zofran Odt) 4 mg PRN Q8HRS PRN PO nausea Last administered on 12/09/16 08:10; Start 12/07/16 at 21:30 Atorvastatin Calcium (Lipitor) 20 mg QHS PO Last administered on 12/08/16 21: 09; Start 12/08/16 at 21:00 Gabapentin (Neurontin) 300 mg DAILY PO Last administered on 12/09/16 08:13; Start 12/08/16 at 09:00 Olanzapine (Zyprexa) 10 mg QHS PO Last administered on 12/08/16 21:10; Start 12/07/16 at 21:45 Oxycodone HCl (Roxicodone) 10 mg PRN BID PRN PO SEVERE PAIN Last administered on 12/09/16 08:14; Start 12/07/16 at 21:45 Risperidone (Risperdal) 4 mg DAILY PO Last administered on 12/09/16 08:12; Start 12/08/16 at 09:00 Sertraline HCl (Zoloft) 200 mg DAILY PO Last administered on 12/09/16 08:11; Start 12/08/16 at 09:00 Sevelamer Carbonate (Renvela) 800 mg TIDWMEALS PO Last administered on 12:35; Start 12/08/16 at 08:00 Zolpidem Tartrate (Ambien) 5 mg PRN QHS PRN PO INSOMNIA, MAY REPEAT IN 1HR; Start 12/07/16 at 22:00 Furosemide (Lasix) 100 mg 1X ONCE IVP Last administered on 12/07/16 22:51; Start 12/07/16 at 22:30; Stop 12/07/16 at 22:31; Status DC Insulin Aspart (Novolog) 0-5 UNITS TIDWMEALS SQ ; Start 12/08/16 at 12:00 Dextrose (Dextrose 50%-Water Syringe) 12.5 gm PRN Q15MIN PRN IV SEE COMMENTS; Start 12/08/16 at 09:15 Darbepoetin Sourav 60 mcg 60 mcg WEEKLYHS SQ Last administered on 12/08/16 21:12 ; Start 12/08/16 at 21:00 Sodium Chloride (Iv Sodium Chloride 0.9% 1000ml Bag) 1,000 ml @ 1,000 mls/hr Q1H PRN IV hypotension; Start 12/08/16 at 11:25; Stop 12/08/16 at 17:24; Status DC Info (PHARMACY MONITORING -- do not chart) 1 each PRN DAILY PRN MC SEE COMMENTS ; Start 12/08/16 at 11:30; Status UNV Info (PHARMACY MONITORING -- do not chart) 1 each PRN DAILY PRN MC SEE COMMENTS ; Start 12/08/16 at 11:30 Acetaminophen (Tylenol) 650 mg PRN Q6HRS PRN PO PAIN Last administered on 12:47; Start 12/08/16 at 12:30 Active Scripts Active Percocet 5-325 Mg Tablet (Oxycodone/Acetaminophen) 1 Each Tablet 1 Tab PO QID PRN Alprazolam 0.5 Mg Tablet 0.5 Mg PO Q8HRS PRN Oxycodone Hcl 10 Mg Tablet 1 Tab PO PRN BID PRN Olanzapine Odt (Olanzapine) 10 Mg Tab.rapdis 10 Mg PO QHS Lamotrigine 25 Mg Tablet 25 Mg PO DAILY 30 Days Zoloft (Sertraline Hcl) 100 Mg Tablet 200 Mg PO DAILY Risperidone 4 Mg Tablet 4 Mg PO DAILY Zofran Odt (Ondansetron) 4 Mg Tab.rapdis 1 Tab SL Q8HRS Reported NICODERM CQ 21mg (Nicotine) 1 Each Patch.td24 1 Patch TP DAILY Depakote (Divalproex Sodium) 250 Mg Tablet.dr 250 Mg PO TID Amlodipine Besylate 10 Mg Tablet 10 Mg PO DAILY Hydralazine Hcl 50 Mg Tablet 50 Mg PO QID Renagel (Sevelamer Hcl) 800 Mg Tablet 800 Mg PO TIDWMEALS Simvastatin 40 Mg Tablet 40 Mg PO HS Levothyroxine Sodium 125 Mcg Tablet 125 Mcg PO DAILYAC Gabapentin 300 Mg Capsule 300 Mg PO DAILY Phoslo (Calcium Acetate) 667 Mg Capsule 667 Mg PO TIDWMEALS Carvedilol 12.5 Mg Tablet 12.5 Mg PO BIDWMEALS Vitals/I & O Vital Sign - Last 24 Hours 12/08/16 12/08/16 12/08/16 4/28/17 15:30 16:24 16:24 19:55 Temp 98.1 98.5 98.1 98.5 Pulse 88 88 88 80 Resp 17 20 B/P 145/81 145/81 145/81 121/65 Pulse Ox 92 95 O2 Delivery Room Air Room Air 12/08/16 12/08/16 12/08/16 12/08/16 20:00 21:09 21:11 22:11 Pulse 80 B/P 121/65 O2 Delivery Room Air Room Air Room Air 12/08/16 12/09/16 12/09/16 12/09/16 23:45 03:00 07:10 08:00 Temp 98.3 98.1 98.8 98.3 98.1 98.8 Pulse 83 85 82 Resp 21 18 20 B/P 131/68 146/73 129/81 Pulse Ox 95 98 89 O2 Delivery Room Air Room Air Room Air Room Air 12/09/16 12/09/16 12/09/16 12/09/16 08:11 08:12 08:13 08:14 Pulse 82 82 82 Resp 18 B/P 129/81 129/81 129/81 O2 Delivery Room Air 12/09/16 12/09/16 12/09/16 12/09/16 09:46 11:00 12:03 12:35 Temp 98.8 98.8 98.8 98.8 Pulse 82 82 82 Resp 16 B/P 118/79 118/79 118/79 Pulse Ox 89 89 O2 Delivery Room Air Room Air Intake and Output 12/08/16 12/08/16 12/09/16 15:00 23:00 07:00 Intake Total 1200 ml 330 ml Balance 1200 ml 330 ml Nutrition Consultation Dietary Evaluation: Recommendations by RD: Increase Calorie Intake, Protein supplementation Comments: Add Novasource Renal at lunch Discussed the potassium content of foods and provided an education handout Expected Outcomes/Goals: meet 75% estimated nutrition needs Malnutrition Findings: Reduced Radio Personality Strength: N/A Weight Status: Obese Fluid Accumulation (N/A): N/A MEE ALFONSO III DO Dec 09, 2016 14:13
[2016-12-09] MEDS ORDERED: SODIUM POLYSTYRENE SULFONATE 15 GM/60 ML ORAL.SUSP. PO ONE (14:30)
--- NOTE | 2016-12-09 18:04 | PDOC4 ---
PROCEDURE Procedure RENAL DIALYSIS / [facility] HD done. Seen on RX F 180 / HCO3 /3K Qb 450 Qd 600 UF to dry weight. No complications. Well tolerated. CPM. VSS Labs stable. INEZ MORELOS MD Dec 09, 2016 18:04
[2016-12-09 19:00] VITALS: BP 139/75
[2016-12-09] MEDS: ATORVASTATIN CALCIUM 20 MG TABLET PO SCH (21:03)
[2016-12-09] MEDS: OLANZapine 5 MG TABLET PO SCH (21:03)
[2016-12-10] MEDS: oxyCODONE IR 5 MG TABLET PO PRN ×4 (01:40→20:05)
[2016-12-10 03:22] VITALS: BP 148/85
[2016-12-10 05:23] LABS: BASO % 1 % (0-3); EOS % 2 % (0-3); HEMATOCRIT 25.7 % (36.0-47.0); HEMOGLOBIN 8.6 g/dL (12.0-15.5); LYMPH # 0.8 x10^3/uL (1.0-4.8); LYMPH % 19 % (24-48); MEAN CORPUSCULAR HEMOGLOBIN 31 pg (25-35); MEAN CORPUSCULAR HGB CONC 34 g/dL (31-37); MEAN CORPUSCULAR VOLUME 93 fL (79-100); MONO % 18 % (0-9); NEUT % 61 % (31-73); PLATELET COUNT 141 x10^3/uL (140-400); RED BLOOD COUNT 2.77 x10^6/uL (3.50-5.40); RED CELL DISTRIBUTION WIDTH 18.1 % (11.5-14.5); WHITE BLOOD COUNT 4.3 x10^3/uL (4.0-11.0)
[2016-12-10 05:29] LABS: CALCIUM 8.3 mg/dL (8.5-10.1); CREATININE 6.6 mg/dL (0.6-1.0); GFR 7.9
[2016-12-10 07:00] VITALS: BP 178/82
[2016-12-10] MEDS: INSULIN ASPART 300 UNITS/3 ML INSULN.PEN SQ SCH ×3 (08:00→16:43)
[2016-12-10] MEDS: CALCIUM ACETATE 667 MG CAPSULE PO SCH ×3 (08:42→16:31)
[2016-12-10] MEDS: LEVOTHYROXINE 125 MCG TABLET PO SCH (08:43)
[2016-12-10] MEDS: SERTRALINE 50 MG TABLET. PO SCH (08:43)
[2016-12-10] MEDS: SEVELAMER CARBONATE 800 MG TABLET. PO SCH ×3 (08:43→16:30)
[2016-12-10] MEDS: DIVALPROEX DELAYED RELEASE 250 MG TABLET.DR. PO SCH ×3 (08:43→20:05)
[2016-12-10] MEDS: risperiDONE 1 MG TABLET. PO SCH (08:44)
[2016-12-10] MEDS: amLODIPine BESYLATE 10 MG TABLET PO SCH (08:44)
[2016-12-10] MEDS: CARVEDILOL 12.5 MG TABLET. PO SCH ×2 (08:44→16:31)
[2016-12-10] MEDS: GABAPENTIN 300 MG CAPSULE. PO SCH (08:45)
[2016-12-10] MEDS: lamoTRIgine 25 MG TABLET. PO SCH (08:45)
[2016-12-10] MEDS: NICOTINE 21MG PATCH. TD SCH (08:46)
[2016-12-10 11:00] VITALS: BP 132/79
--- NOTE | 2016-12-10 11:06 | PDOC ---
PROGRESS NOTES Chief Complaint Chief Complaint cc: ESRD, uremia, nonadherence with hemodialysis 1. Hyperkalemia: resolved. 2. ESRD: HD per nephrology, pt is not following recommendations in the hospital. 3. AV fistula malfxn: revision planned by Dr Olson on Sunday 4. Anemia: 2/2 ESRD. on EPO 5. DM2: no diabetic home meds. on ISS. HgbA1c pending 6. CHF: chronic diastolic 7. HLD, HTN: well controlled. continue home regimen 8. Schizophrenia, bipolar 9. Hypoalbuminemia: moderate 10. Back pain: chronic. 11. Dispo: home less, SW consulted. History of Present Illness History of Present Illness wandering in the [place] ways back pain no fever Vitals Vitals Vital Signs Date Time Temp Pulse Resp B/P Pulse Ox O2 Delivery O2 Flow Rate FiO2 12/10/16 08:50 95 Room Air 12/10/16 08:44 78 178/82 12/10/16 07:00 98.4 22 98.4 Physical Exam General: Alert, Oriented X3, Cooperative, No acute distress Heart: Regular rate, Normal S1 Lungs: Clear, Other Abdomen: Normal bowel sounds, Soft, No tenderness Extremities: No clubbing, No edema, Other Skin: No rashes Labs LABS Laboratory Tests Test 12/09/16 13:30 12/09/16 18:04 12/09/16 20:45 12/10/16 03:50 Potassium Level 5.1mmol/L (3.5-5.1) 5.0mmol/L (3.5-5.1) Glucose (Fingerstick) 161mg/dL (70-99) 167mg/dL (70-99) White Blood Count 4.3x10^3/uL (4.0-11.0) Red Blood Count 2.77x10^6/uL (3.50-5.40) Hemoglobin 8.6g/dL (12.0-15.5) Hematocrit 25.7% (36.0-47.0) Mean Corpuscular Volume 93fL (79-100) Mean Corpuscular Hemoglobin 31pg (25-35) Mean Corpuscular Hemoglobin Concent 34g/dL (31-37) Red Cell Distribution Width 18.1% (11.5-14.5) Platelet Count 141x10^3/uL (140-400) Neutrophils (%) (Auto) 61% (31-73) Lymphocytes (%) (Auto) 19% (24-48) Monocytes (%) (Auto) 18% (0-9) Eosinophils (%) (Auto) 2% (0-3) Basophils (%) (Auto) 1% (0-3) Neutrophils # (Auto) 2.6x10^3uL (1.8-7.7) Lymphocytes # (Auto) 0.8x10^3/uL (1.0-4.8) Monocytes # (Auto) 0.8x10^3/uL (0.0-1.1) Eosinophils # (Auto) 0.1x10^3/uL (0.0-0.7) Basophils # (Auto) 0.0x10^3/uL (0.0-0.2) Sodium Level 140mmol/L (136-145) Chloride Level 100mmol/L (98-107) Carbon Dioxide Level 29mmol/L (21-32) Anion Gap 11 (6-14) Blood Urea Nitrogen 35mg/dL (7-20) Creatinine 6.6mg/dL (0.6-1.0) Estimated GFR (Cockcroft-Gault) 7.9 Glucose Level 165mg/dL (70-99) Calcium Level 8.3mg/dL (8.5-10.1) Test 12/10/16 07:09 12/10/16 10:14 Glucose (Fingerstick) 244mg/dL (70-99) 165mg/dL (70-99) Assessment and Plan Assessmemt and Plan Problems Medical Problems: (1) Acute on chronic renal failure Status: Acute (2) ESRD (end stage renal disease) Status: Acute (3) Hyperkalemia Status: Acute Problems: Comment Review of Relevant I have reviewed the following items hemal (where applicable) has been applied. Labs Laboratory Tests Test 12/08/16 12:07 12/08/16 16:09 12/08/16 20:52 12/09/16 07:15 Glucose (Fingerstick) 104mg/dL (70-99) 111mg/dL (70-99) 189mg/dL (70-99) 102mg/dL (70-99) Test 12/09/16 13:30 12/09/16 18:04 12/09/16 20:45 12/10/16 03:50 Potassium Level 5.1mmol/L (3.5-5.1) 5.0mmol/L (3.5-5.1) Glucose (Fingerstick) 161mg/dL (70-99) 167mg/dL (70-99) White Blood Count 4.3x10^3/uL (4.0-11.0) Red Blood Count 2.77x10^6/uL (3.50-5.40) Hemoglobin 8.6g/dL (12.0-15.5) Hematocrit 25.7% (36.0-47.0) Mean Corpuscular Volume 93fL (79-100) Mean Corpuscular Hemoglobin 31pg (25-35) Mean Corpuscular Hemoglobin Concent 34g/dL (31-37) Red Cell Distribution Width 18.1% (11.5-14.5) Platelet Count 141x10^3/uL (140-400) Neutrophils (%) (Auto) 61% (31-73) Lymphocytes (%) (Auto) 19% (24-48) Monocytes (%) (Auto) 18% (0-9) Eosinophils (%) (Auto) 2% (0-3) Basophils (%) (Auto) 1% (0-3) Neutrophils # (Auto) 2.6x10^3uL (1.8-7.7) Lymphocytes # (Auto) 0.8x10^3/uL (1.0-4.8) Monocytes # (Auto) 0.8x10^3/uL (0.0-1.1) Eosinophils # (Auto) 0.1x10^3/uL (0.0-0.7) Basophils # (Auto) 0.0x10^3/uL (0.0-0.2) Sodium Level 140mmol/L (136-145) Chloride Level 100mmol/L (98-107) Carbon Dioxide Level 29mmol/L (21-32) Anion Gap 11 (6-14) Blood Urea Nitrogen 35mg/dL (7-20) Creatinine 6.6mg/dL (0.6-1.0) Estimated GFR (Cockcroft-Gault) 7.9 Glucose Level 165mg/dL (70-99) Calcium Level 8.3mg/dL (8.5-10.1) Test 12/10/16 07:09 12/10/16 10:14 Glucose (Fingerstick) 244mg/dL (70-99) 165mg/dL (70-99) Laboratory Tests Test 12/09/16 13:30 12/09/16 18:04 12/09/16 20:45 12/10/16 03:50 Potassium Level 5.1mmol/L (3.5-5.1) 5.0mmol/L (3.5-5.1) Glucose (Fingerstick) 161mg/dL (70-99) 167mg/dL (70-99) White Blood Count 4.3x10^3/uL (4.0-11.0) Red Blood Count 2.77x10^6/uL (3.50-5.40) Hemoglobin 8.6g/dL (12.0-15.5) Hematocrit 25.7% (36.0-47.0) Mean Corpuscular Volume 93fL (79-100) Mean Corpuscular Hemoglobin 31pg (25-35) Mean Corpuscular Hemoglobin Concent 34g/dL (31-37) Red Cell Distribution Width 18.1% (11.5-14.5) Platelet Count 141x10^3/uL (140-400) Neutrophils (%) (Auto) 61% (31-73) Lymphocytes (%) (Auto) 19% (24-48) Monocytes (%) (Auto) 18% (0-9) Eosinophils (%) (Auto) 2% (0-3) Basophils (%) (Auto) 1% (0-3) Neutrophils # (Auto) 2.6x10^3uL (1.8-7.7) Lymphocytes # (Auto) 0.8x10^3/uL (1.0-4.8) Monocytes # (Auto) 0.8x10^3/uL (0.0-1.1) Eosinophils # (Auto) 0.1x10^3/uL (0.0-0.7) Basophils # (Auto) 0.0x10^3/uL (0.0-0.2) Sodium Level 140mmol/L (136-145) Chloride Level 100mmol/L (98-107) Carbon Dioxide Level 29mmol/L (21-32) Anion Gap 11 (6-14) Blood Urea Nitrogen 35mg/dL (7-20) Creatinine 6.6mg/dL (0.6-1.0) Estimated GFR (Cockcroft-Gault) 7.9 Glucose Level 165mg/dL (70-99) Calcium Level 8.3mg/dL (8.5-10.1) Test 12/10/16 07:09 12/10/16 10:14 Glucose (Fingerstick) 244mg/dL (70-99) 165mg/dL (70-99) Medications Current Medications Acetaminophen/ Hydrocodone Bitart (Lortab 5/325) 1 tab 1X ONCE PO Last administered on 12/07/16 17:00; Start 12/07/16 at 17:00; Stop 12/07/16 at 17:01 ; Status DC Sodium Polystyrene Sulfonate (Kayexalate) 30 gm 1X ONCE PO Last administered on 12/07/16 18:50; Start 12/07/16 at 18:45; Stop 12/07/16 at 18:46; Status DC Ondansetron HCl (Zofran) 4 mg PRN Q8HRS PRN IV NAUSEA/VOMITING; Start 12/07/16 at 19:00; Stop 12/08/16 at 18:59; Status DC Alprazolam (Xanax) 0.5 mg PRN Q8HRS PRN PO ANXIETY / AGITATION Last administered on 12/09/16 08:13; Start 12/07/16 at 21:30 Amlodipine Besylate (Norvasc) 10 mg DAILY PO Last administered on 12/10/16 08: 44; Start 12/08/16 at 09:00 Calcium Acetate (Phoslo) 667 mg TIDWMEALS PO Last administered on 12/10/16 08: 42; Start 12/08/16 at 08:00 Carvedilol (Coreg) 12.5 mg BIDWMEALS PO Last administered on 12/10/16 08:44; Start 12/08/16 at 08:00 Divalproex Sodium (Depakote) 250 mg TID PO Last administered on 12/10/16 08:43 ; Start 12/08/16 at 09:00 Hydralazine HCl (Apresoline) 50 mg QID PO Last administered on 12/10/16 08:43 ; Start 12/08/16 at 09:00 Lamotrigine (LaMICtal) 25 mg DAILY PO Last administered on 12/10/16 08:45; Start 12/08/16 at 09:00 Levothyroxine Sodium (Synthroid) 125 mcg DAILYAC PO Last administered on 08:43; Start 12/08/16 at 07:30 Nicotine (Nicoderm Cq 21mg) 1 patch DAILY TD Last administered on 12/10/16 08: 46; Start 12/08/16 at 06:00 Ondansetron HCl (Zofran Odt) 4 mg PRN Q8HRS PRN PO nausea Last administered on 12/09/16 08:10; Start 12/07/16 at 21:30 Atorvastatin Calcium (Lipitor) 20 mg QHS PO Last administered on 12/09/16 21: 03; Start 12/08/16 at 21:00 Gabapentin (Neurontin) 300 mg DAILY PO Last administered on 12/10/16 08:45; Start 12/08/16 at 09:00 Olanzapine (Zyprexa) 10 mg QHS PO Last administered on 12/09/16 21:03; Start 12/07/16 at 21:45 Oxycodone HCl (Roxicodone) 10 mg PRN BID PRN PO SEVERE PAIN Last administered on 12/09/16 18:00; Start 12/07/16 at 21:45; Stop 12/10/16 at 01:15; Status DC Risperidone (Risperdal) 4 mg DAILY PO Last administered on 12/10/16 08:44; Start 12/08/16 at 09:00 Sertraline HCl (Zoloft) 200 mg DAILY PO Last administered on 12/10/16 08:43; Start 12/08/16 at 09:00 Sevelamer Carbonate (Renvela) 800 mg TIDWMEALS PO Last administered on 08:43; Start 12/08/16 at 08:00 Zolpidem Tartrate (Ambien) 5 mg PRN QHS PRN PO INSOMNIA, MAY REPEAT IN 1HR; Start 12/07/16 at 22:00 Furosemide (Lasix) 100 mg 1X ONCE IVP Last administered on 12/07/16 22:51; Start 12/07/16 at 22:30; Stop 12/07/16 at 22:31; Status DC Insulin Aspart (Novolog) 0-5 UNITS TIDWMEALS SQ ; Start 12/08/16 at 12:00 Dextrose (Dextrose 50%-Water Syringe) 12.5 gm PRN Q15MIN PRN IV SEE COMMENTS; Start 12/08/16 at 09:15 Darbepoetin Sourav 60 mcg 60 mcg WEEKLYHS SQ Last administered on 12/08/16 21:12 ; Start 12/08/16 at 21:00 Sodium Chloride (Iv Sodium Chloride 0.9% 1000ml Bag) 1,000 ml @ 1,000 mls/hr Q1H PRN IV hypotension; Start 12/08/16 at 11:25; Stop 12/08/16 at 17:24; Status DC Info (PHARMACY MONITORING -- do not chart) 1 each PRN DAILY PRN MC SEE COMMENTS ; Start 12/08/16 at 11:30; Status UNV Info (PHARMACY MONITORING -- do not chart) 1 each PRN DAILY PRN MC SEE COMMENTS ; Start 12/08/16 at 11:30 Acetaminophen (Tylenol) 650 mg PRN Q6HRS PRN PO PAIN Last administered on 12:47; Start 12/08/16 at 12:30 Sodium Polystyrene Sulfonate (Kayexalate) 15 gm 1X ONCE PO Last administered on 12/09/16 17:54; Start 12/09/16 at 14:30; Stop 12/09/16 at 14:33; Status DC Oxycodone HCl (Roxicodone) 10 mg PRN Q2HR PRN PO SEVERE PAIN Last administered on 12/10/16 07:48; Start 12/10/16 at 01:15 Active Scripts Active Percocet 5-325 Mg Tablet (Oxycodone/Acetaminophen) 1 Each Tablet 1 Tab PO QID PRN Alprazolam 0.5 Mg Tablet 0.5 Mg PO Q8HRS PRN Oxycodone Hcl 10 Mg Tablet 1 Tab PO PRN BID PRN Olanzapine Odt (Olanzapine) 10 Mg Tab.rapdis 10 Mg PO QHS Lamotrigine 25 Mg Tablet 25 Mg PO DAILY 30 Days Zoloft (Sertraline Hcl) 100 Mg Tablet 200 Mg PO DAILY Risperidone 4 Mg Tablet 4 Mg PO DAILY Zofran Odt (Ondansetron) 4 Mg Tab.rapdis 1 Tab SL Q8HRS Reported NICODERM CQ 21mg (Nicotine) 1 Each Patch.td24 1 Patch TP DAILY Depakote (Divalproex Sodium) 250 Mg Tablet.dr 250 Mg PO TID Amlodipine Besylate 10 Mg Tablet 10 Mg PO DAILY Hydralazine Hcl 50 Mg Tablet 50 Mg PO QID Renagel (Sevelamer Hcl) 800 Mg Tablet 800 Mg PO TIDWMEALS Simvastatin 40 Mg Tablet 40 Mg PO HS Levothyroxine Sodium 125 Mcg Tablet 125 Mcg PO DAILYAC Gabapentin 300 Mg Capsule 300 Mg PO DAILY Phoslo (Calcium Acetate) 667 Mg Capsule 667 Mg PO TIDWMEALS Carvedilol 12.5 Mg Tablet 12.5 Mg PO BIDWMEALS Vitals/I & O Vital Sign - Last 24 Hours 12/09/16 12/09/16 12/09/16 12/09/16 12:03 12:35 17:53 17:54 Temp 98.8 98.8 Pulse 82 82 82 82 B/P 118/79 118/79 118/79 118/79 Pulse Ox 89 O2 Delivery Room Air 12/09/16 12/09/16 12/09/16 12/09/16 18:00 19:00 19:28 19:45 Temp 98.4 98.4 Pulse 81 Resp 20 B/P 139/75 Pulse Ox 89 94 89 O2 Delivery Room Air Room Air Room Air Room Air 12/09/16 12/10/16 12/10/16 12/10/16 21:02 01:40 02:43 03:22 Temp 97.8 97.8 Pulse 85 84 Resp 18 17 18 B/P 132/74 148/85 Pulse Ox 92 94 O2 Delivery Room Air Room Air 12/10/16 12/10/16 12/10/16 12/10/16 07:00 07:48 08:00 08:43 Temp 98.4 98.4 Pulse 78 78 Resp 22 B/P 178/82 178/82 Pulse Ox 95 95 O2 Delivery Room Air Room Air Room Air 12/10/16 12/10/16 12/10/16 08:44 08:44 08:50 Pulse 78 78 B/P 178/82 178/82 Pulse Ox 95 O2 Delivery Room Air Intake and Output 12/09/16 12/09/16 12/10/16 15:00 23:00 07:00 Intake Total 360 ml Balance 360 ml Nutrition Consultation Dietary Evaluation: Recommendations by RD: Increase Calorie Intake, Protein supplementation Comments: Add Novasource Renal at lunch Discussed the potassium content of foods and provided an education handout Expected Outcomes/Goals: meet 75% estimated nutrition needs Malnutrition Findings: Reduced [employer] Strength: N/A Weight Status: Obese Fluid Accumulation (N/A): N/A BRANDI JARA MD Dec 10, 2016 11:05
--- NOTE | 2016-12-10 13:12 | PDOC ---
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 ROLA MEDRANO MD Dec 10, 2016 13:12
[2016-12-10 14:53] VITALS: BP 149/84
[2016-12-10 19:00] VITALS: BP 128/75
[2016-12-10] MEDS: OLANZapine 5 MG TABLET PO SCH (20:05)
[2016-12-10] MEDS: ATORVASTATIN CALCIUM 20 MG TABLET PO SCH (20:05)
[2016-12-10 23:00] VITALS: BP 109/70
[2016-12-11 03:00] VITALS: BP 134/87
[2016-12-11 04:25] LABS: BASO % 1 % (0-3); EOS % 3 % (0-3); HEMATOCRIT 26.5 % (36.0-47.0); HEMOGLOBIN 8.3 g/dL (12.0-15.5); LYMPH % 25 % (24-48); MEAN CORPUSCULAR HEMOGLOBIN 31 pg (25-35); MEAN CORPUSCULAR HGB CONC 31 g/dL (31-37); MEAN CORPUSCULAR VOLUME 97 fL (79-100); MONO % 17 % (0-9); NEUT % 54 % (31-73); PLATELET COUNT 120 x10^3/uL (140-400); RED BLOOD COUNT 2.73 x10^6/uL (3.50-5.40); RED CELL DISTRIBUTION WIDTH 18.2 % (11.5-14.5); WHITE BLOOD COUNT 3.9 x10^3/uL (4.0-11.0)
[2016-12-11 05:57] LABS: CALCIUM 8.5 mg/dL (8.5-10.1); CREATININE 8.2 mg/dL (0.6-1.0); GFR 6.2
[2016-12-11 07:00] VITALS: BP 150/87
[2016-12-11] MEDS: oxyCODONE IR 5 MG TABLET PO PRN ×3 (07:16→20:40)
[2016-12-11] MEDS: SERTRALINE 50 MG TABLET. PO SCH (08:17)
[2016-12-11] MEDS: GABAPENTIN 300 MG CAPSULE. PO SCH (08:17)
[2016-12-11] MEDS: risperiDONE 1 MG TABLET. PO SCH (08:17)
[2016-12-11] MEDS: DIVALPROEX DELAYED RELEASE 250 MG TABLET.DR. PO SCH ×3 (08:18→20:36)
[2016-12-11] MEDS: lamoTRIgine 25 MG TABLET. PO SCH (08:18)
[2016-12-11] MEDS: SEVELAMER CARBONATE 800 MG TABLET. PO SCH ×3 (08:18→16:55)
[2016-12-11] MEDS: CALCIUM ACETATE 667 MG CAPSULE PO SCH ×3 (08:18→16:55)
[2016-12-11] MEDS: LEVOTHYROXINE 125 MCG TABLET PO SCH (08:19)
[2016-12-11] MEDS: CARVEDILOL 12.5 MG TABLET. PO SCH ×2 (08:19→16:56)
[2016-12-11] MEDS: NICOTINE 21MG PATCH. TD SCH (08:19)
[2016-12-11] MEDS: amLODIPine BESYLATE 10 MG TABLET PO SCH (08:19)
[2016-12-11] MEDS: INSULIN ASPART 300 UNITS/3 ML INSULN.PEN SQ SCH ×3 (08:26→16:59)
--- NOTE | 2016-12-11 10:17 | PDOC ---
PROGRESS NOTES Subjective Subjective She still admits some low back pain. Objective Objective Vital Signs Date Time Temp Pulse Resp B/P Pulse Ox O2 Delivery O2 Flow Rate FiO2 12/11/16 08:27 Room Air 12/11/16 08:19 83 150/87 12/11/16 07:16 18 92 12/11/16 07:00 98.9 98.9 Intake and Output 12/11/16 07:00 Intake Total 900 ml Balance 900 ml Intake Oral 900 ml # Voids 8 Physical Exam Physical Exam She is alert and I saw her walking in hallway with lumbar corset without any assistive devices. Assessment Assessment Problems Medical Problems: (1) Acute on chronic renal failure Status: Acute (2) ESRD (end stage renal disease) Status: Acute (3) Hyperkalemia Status: Acute Plan Plan of Shelter when medically stable with out patient follow up and to consider injections to low back if her pain persists. Comment Review of Relevant I have reviewed the following items hemal (where applicable) has been applied. Labs Laboratory Tests Test 12/09/16 13:30 12/09/16 18:04 12/09/16 20:45 12/10/16 03:50 Potassium Level 5.1mmol/L (3.5-5.1) 5.0mmol/L (3.5-5.1) Glucose (Fingerstick) 161mg/dL (70-99) 167mg/dL (70-99) White Blood Count 4.3x10^3/uL (4.0-11.0) Red Blood Count 2.77x10^6/uL (3.50-5.40) Hemoglobin 8.6g/dL (12.0-15.5) Hematocrit 25.7% (36.0-47.0) Mean Corpuscular Volume 93fL (79-100) Mean Corpuscular Hemoglobin 31pg (25-35) Mean Corpuscular Hemoglobin Concent 34g/dL (31-37) Red Cell Distribution Width 18.1% (11.5-14.5) Platelet Count 141x10^3/uL (140-400) Neutrophils (%) (Auto) 61% (31-73) Lymphocytes (%) (Auto) 19% (24-48) Monocytes (%) (Auto) 18% (0-9) Eosinophils (%) (Auto) 2% (0-3) Basophils (%) (Auto) 1% (0-3) Neutrophils # (Auto) 2.6x10^3uL (1.8-7.7) Lymphocytes # (Auto) 0.8x10^3/uL (1.0-4.8) Monocytes # (Auto) 0.8x10^3/uL (0.0-1.1) Eosinophils # (Auto) 0.1x10^3/uL (0.0-0.7) Basophils # (Auto) 0.0x10^3/uL (0.0-0.2) Sodium Level 140mmol/L (136-145) Chloride Level 100mmol/L (98-107) Carbon Dioxide Level 29mmol/L (21-32) Anion Gap 11 (6-14) Blood Urea Nitrogen 35mg/dL (7-20) Creatinine 6.6mg/dL (0.6-1.0) Estimated GFR (Cockcroft-Gault) 7.9 Glucose Level 165mg/dL (70-99) Calcium Level 8.3mg/dL (8.5-10.1) Test 12/10/16 07:09 12/10/16 10:14 12/10/16 16:38 12/10/16 20:59 Glucose (Fingerstick) 244mg/dL (70-99) 165mg/dL (70-99) 174mg/dL (70-99) 104mg/dL (70-99) Test 12/11/16 03:30 12/11/16 07:22 White Blood Count 3.9x10^3/uL (4.0-11.0) Red Blood Count 2.73x10^6/uL (3.50-5.40) Hemoglobin 8.3g/dL (12.0-15.5) Hematocrit 26.5% (36.0-47.0) Mean Corpuscular Volume 97fL (79-100) Mean Corpuscular Hemoglobin 31pg (25-35) Mean Corpuscular Hemoglobin Concent 31g/dL (31-37) Red Cell Distribution Width 18.2% (11.5-14.5) Platelet Count 120x10^3/uL (140-400) Neutrophils (%) (Auto) 54% (31-73) Lymphocytes (%) (Auto) 25% (24-48) Monocytes (%) (Auto) 17% (0-9) Eosinophils (%) (Auto) 3% (0-3) Basophils (%) (Auto) 1% (0-3) Neutrophils # (Auto) 2.1x10^3uL (1.8-7.7) Lymphocytes # (Auto) 1.0x10^3/uL (1.0-4.8) Monocytes # (Auto) 0.7x10^3/uL (0.0-1.1) Eosinophils # (Auto) 0.1x10^3/uL (0.0-0.7) Basophils # (Auto) 0.0x10^3/uL (0.0-0.2) Sodium Level 139mmol/L (136-145) Potassium Level 5.0mmol/L (3.5-5.1) Chloride Level 101mmol/L (98-107) Carbon Dioxide Level 26mmol/L (21-32) Anion Gap 12 (6-14) Blood Urea Nitrogen 46mg/dL (7-20) Creatinine 8.2mg/dL (0.6-1.0) Estimated GFR (Cockcroft-Gault) 6.2 Glucose Level 95mg/dL (70-99) Calcium Level 8.5mg/dL (8.5-10.1) Glucose (Fingerstick) 188mg/dL (70-99) Laboratory Tests Test 12/10/16 16:38 12/10/16 20:59 12/11/16 03:30 12/11/16 07:22 Glucose (Fingerstick) 174mg/dL (70-99) 104mg/dL (70-99) 188mg/dL (70-99) White Blood Count 3.9x10^3/uL (4.0-11.0) Red Blood Count 2.73x10^6/uL (3.50-5.40) Hemoglobin 8.3g/dL (12.0-15.5) Hematocrit 26.5% (36.0-47.0) Mean Corpuscular Volume 97fL (79-100) Mean Corpuscular Hemoglobin 31pg (25-35) Mean Corpuscular Hemoglobin Concent 31g/dL (31-37) Red Cell Distribution Width 18.2% (11.5-14.5) Platelet Count 120x10^3/uL (140-400) Neutrophils (%) (Auto) 54% (31-73) Lymphocytes (%) (Auto) 25% (24-48) Monocytes (%) (Auto) 17% (0-9) Eosinophils (%) (Auto) 3% (0-3) Basophils (%) (Auto) 1% (0-3) Neutrophils # (Auto) 2.1x10^3uL (1.8-7.7) Lymphocytes # (Auto) 1.0x10^3/uL (1.0-4.8) Monocytes # (Auto) 0.7x10^3/uL (0.0-1.1) Eosinophils # (Auto) 0.1x10^3/uL (0.0-0.7) Basophils # (Auto) 0.0x10^3/uL (0.0-0.2) Sodium Level 139mmol/L (136-145) Potassium Level 5.0mmol/L (3.5-5.1) Chloride Level 101mmol/L (98-107) Carbon Dioxide Level 26mmol/L (21-32) Anion Gap 12 (6-14) Blood Urea Nitrogen 46mg/dL (7-20) Creatinine 8.2mg/dL (0.6-1.0) Estimated GFR (Cockcroft-Gault) 6.2 Glucose Level 95mg/dL (70-99) Calcium Level 8.5mg/dL (8.5-10.1) Medications Current Medications Acetaminophen/ Hydrocodone Bitart (Lortab 5/325) 1 tab 1X ONCE PO Last administered on 12/07/16 17:00; Start 12/07/16 at 17:00; Stop 12/07/16 at 17:01 ; Status DC Sodium Polystyrene Sulfonate (Kayexalate) 30 gm 1X ONCE PO Last administered on 12/07/16 18:50; Start 12/07/16 at 18:45; Stop 12/07/16 at 18:46; Status DC Ondansetron HCl (Zofran) 4 mg PRN Q8HRS PRN IV NAUSEA/VOMITING; Start 12/07/16 at 19:00; Stop 12/08/16 at 18:59; Status DC Alprazolam (Xanax) 0.5 mg PRN Q8HRS PRN PO ANXIETY / AGITATION Last administered on 12/09/16 08:13; Start 12/07/16 at 21:30 Amlodipine Besylate (Norvasc) 10 mg DAILY PO Last administered on 12/11/16 08: 19; Start 12/08/16 at 09:00 Calcium Acetate (Phoslo) 667 mg TIDWMEALS PO Last administered on 12/11/16 08: 18; Start 12/08/16 at 08:00 Carvedilol (Coreg) 12.5 mg BIDWMEALS PO Last administered on 12/11/16 08:19; Start 12/08/16 at 08:00 Divalproex Sodium (Depakote) 250 mg TID PO Last administered on 12/11/16 08:18 ; Start 12/08/16 at 09:00 Hydralazine HCl (Apresoline) 50 mg QID PO Last administered on 12/11/16 08:17; Start 12/08/16 at 09:00 Lamotrigine (LaMICtal) 25 mg DAILY PO Last administered on 12/11/16 08:18; Start 12/08/16 at 09:00 Levothyroxine Sodium (Synthroid) 125 mcg DAILYAC PO Last administered on 08:19; Start 12/08/16 at 07:30 Nicotine (Nicoderm Cq 21mg) 1 patch DAILY TD Last administered on 12/11/16 08: 19; Start 12/08/16 at 06:00 Ondansetron HCl (Zofran Odt) 4 mg PRN Q8HRS PRN PO nausea Last administered on 12/09/16 08:10; Start 12/07/16 at 21:30 Atorvastatin Calcium (Lipitor) 20 mg QHS PO Last administered on 12/10/16 20: 05; Start 12/08/16 at 21:00 Gabapentin (Neurontin) 300 mg DAILY PO Last administered on 12/11/16 08:17; Start 12/08/16 at 09:00 Olanzapine (Zyprexa) 10 mg QHS PO Last administered on 12/10/16 20:05; Start 12/07/16 at 21:45 Oxycodone HCl (Roxicodone) 10 mg PRN BID PRN PO SEVERE PAIN Last administered on 12/09/16 18:00; Start 12/07/16 at 21:45; Stop 12/10/16 at 01:15; Status DC Risperidone (Risperdal) 4 mg DAILY PO Last administered on 12/11/16 08:17; Start 12/08/16 at 09:00 Sertraline HCl (Zoloft) 200 mg DAILY PO Last administered on 12/11/16 08:17; Start 12/08/16 at 09:00 Sevelamer Carbonate (Renvela) 800 mg TIDWMEALS PO Last administered on 08:18; Start 12/08/16 at 08:00 Zolpidem Tartrate (Ambien) 5 mg PRN QHS PRN PO INSOMNIA, MAY REPEAT IN 1HR; Start 12/07/16 at 22:00 Furosemide (Lasix) 100 mg 1X ONCE IVP Last administered on 12/07/16 22:51; Start 12/07/16 at 22:30; Stop 12/07/16 at 22:31; Status DC Insulin Aspart (Novolog) 0-5 UNITS TIDWMEALS SQ Last administered on 12/11/16 08:26; Start 12/08/16 at 12:00 Dextrose (Dextrose 50%-Water Syringe) 12.5 gm PRN Q15MIN PRN IV SEE COMMENTS; Start 12/08/16 at 09:15 Darbepoetin Sourav 60 mcg 60 mcg WEEKLYHS SQ Last administered on 12/08/16 21:12 ; Start 12/08/16 at 21:00 Sodium Chloride (Iv Sodium Chloride 0.9% 1000ml Bag) 1,000 ml @ 1,000 mls/hr Q1H PRN IV hypotension; Start 12/08/16 at 11:25; Stop 12/08/16 at 17:24; Status DC Info (PHARMACY MONITORING -- do not chart) 1 each PRN DAILY PRN MC SEE COMMENTS ; Start 12/08/16 at 11:30; Status UNV Info (PHARMACY MONITORING -- do not chart) 1 each PRN DAILY PRN MC SEE COMMENTS ; Start 12/08/16 at 11:30 Acetaminophen (Tylenol) 650 mg PRN Q6HRS PRN PO PAIN Last administered on 12:47; Start 12/08/16 at 12:30 Sodium Polystyrene Sulfonate (Kayexalate) 15 gm 1X ONCE PO Last administered on 12/09/16 17:54; Start 12/09/16 at 14:30; Stop 12/09/16 at 14:33; Status DC Oxycodone HCl (Roxicodone) 10 mg PRN Q2HR PRN PO SEVERE PAIN Last administered on 12/11/16 07:16; Start 12/10/16 at 01:15 Active Scripts Active Percocet 5-325 Mg Tablet (Oxycodone/Acetaminophen) 1 Each Tablet 1 Tab PO QID PRN Alprazolam 0.5 Mg Tablet 0.5 Mg PO Q8HRS PRN Oxycodone Hcl 10 Mg Tablet 1 Tab PO PRN BID PRN Olanzapine Odt (Olanzapine) 10 Mg Tab.rapdis 10 Mg PO QHS Lamotrigine 25 Mg Tablet 25 Mg PO DAILY 30 Days Zoloft (Sertraline Hcl) 100 Mg Tablet 200 Mg PO DAILY Risperidone 4 Mg Tablet 4 Mg PO DAILY Zofran Odt (Ondansetron) 4 Mg Tab.rapdis 1 Tab SL Q8HRS Reported NICODERM CQ 21mg (Nicotine) 1 Each Patch.td24 1 Patch TP DAILY Depakote (Divalproex Sodium) 250 Mg Tablet.dr 250 Mg PO TID Amlodipine Besylate 10 Mg Tablet 10 Mg PO DAILY Hydralazine Hcl 50 Mg Tablet 50 Mg PO QID Renagel (Sevelamer Hcl) 800 Mg Tablet 800 Mg PO TIDWMEALS Simvastatin 40 Mg Tablet 40 Mg PO HS Levothyroxine Sodium 125 Mcg Tablet 125 Mcg PO DAILYAC Gabapentin 300 Mg Capsule 300 Mg PO DAILY Phoslo (Calcium Acetate) 667 Mg Capsule 667 Mg PO TIDWMEALS Carvedilol 12.5 Mg Tablet 12.5 Mg PO BIDWMEALS Vitals/I & O Vital Sign - Last 24 Hours 12/10/16 12/10/16 12/10/16 12/10/16 11:00 12:23 12:23 14:53 Temp 97.9 98.1 97.9 98.1 Pulse 79 79 78 Resp 20 20 B/P 132/79 132/79 149/84 Pulse Ox 92 92 95 O2 Delivery Room Air Room Air Room Air 12/10/16 12/10/16 12/10/16 12/10/16 16:31 16:31 19:00 20:05 Temp 98.6 98.6 Pulse 78 78 74 Resp 16 18 B/P 149/84 149/84 128/75 Pulse Ox 91 95 O2 Delivery Room Air 12/10/16 12/10/16 12/10/16 12/10/16 20:06 20:36 20:57 23:00 Temp 98.3 98.3 Pulse 74 70 Resp 16 B/P 128/75 109/70 Pulse Ox 95 98 O2 Delivery Room Air 12/11/16 12/11/16 12/11/16 12/11/16 03:00 07:00 07:16 08:00 Temp 99.0 98.9 99.0 98.9 Pulse 77 83 Resp 18 18 B/P 134/87 150/87 Pulse Ox 92 94 92 O2 Delivery Room Air Room Air Room Air 12/11/16 12/11/16 12/11/16 12/11/16 08:17 08:19 08:19 08:27 Pulse 83 83 83 B/P 150/87 150/87 150/87 O2 Delivery Room Air Intake and Output 12/10/16 12/10/16 12/11/16 15:00 23:00 07:00 Intake Total 240 ml 180 ml 480 ml Balance 240 ml 180 ml 480 ml Nutrition Consultation Dietary Evaluation: Recommendations by RD: Increase Calorie Intake, Protein supplementation Comments: Add Novasource Renal at lunch Discussed the potassium content of foods and provided an education handout Expected Outcomes/Goals: meet 75% estimated nutrition needs Malnutrition Findings: Reduced Device Processing Engineer Strength: N/A Weight Status: Obese Fluid Accumulation (N/A): N/A AR NORMAN MD December 11, 2016 10:17
[2016-12-11 11:00] VITALS: BP 131/76
--- NOTE | 2016-12-11 12:10 | PDOC ---
PROGRESS NOTES Chief Complaint Chief Complaint cc: ESRD, uremia, nonadherence with hemodialysis 1. Hyperkalemia: resolved. 2. ESRD: HD per nephrology, pt is not following recommendations in the hospital. 3. AV fistula malfxn: revision planned by Dr Olson next week due to busy schedule. 4. Anemia: 2/2 ESRD. on EPO 5. DM2: no diabetic home meds. on ISS. HgbA1c pending 6. CHF: chronic diastolic 7. HLD, HTN: well controlled. continue home regimen 8. Schizophrenia, bipolar 9. Hypoalbuminemia: moderate 10. Back pain: chronic. 11. Dispo: home less, SW consulted. anticipated DC today , d/w RN, and pts lining caser. History of Present Illness History of Present Illness doing better no fever no chest pain Vitals Vitals Vital Signs Date Time Temp Pulse Resp B/P Pulse Ox O2 Delivery O2 Flow Rate FiO2 12/11/16 11:00 97.4 75 16 131/76 93 Room Air 97.4 Physical Exam General: Alert, Oriented X3, Cooperative, No acute distress Heart: Regular rate, Normal S1 Lungs: Clear, Other Abdomen: Normal bowel sounds, Soft, No tenderness Extremities: No clubbing, No edema, Other Skin: No rashes Labs LABS Laboratory Tests Test 12/10/16 16:38 12/10/16 20:59 12/11/16 03:30 12/11/16 07:22 Glucose (Fingerstick) 174mg/dL (70-99) 104mg/dL (70-99) 188mg/dL (70-99) White Blood Count 3.9x10^3/uL (4.0-11.0) Red Blood Count 2.73x10^6/uL (3.50-5.40) Hemoglobin 8.3g/dL (12.0-15.5) Hematocrit 26.5% (36.0-47.0) Mean Corpuscular Volume 97fL (79-100) Mean Corpuscular Hemoglobin 31pg (25-35) Mean Corpuscular Hemoglobin Concent 31g/dL (31-37) Red Cell Distribution Width 18.2% (11.5-14.5) Platelet Count 120x10^3/uL (140-400) Neutrophils (%) (Auto) 54% (31-73) Lymphocytes (%) (Auto) 25% (24-48) Monocytes (%) (Auto) 17% (0-9) Eosinophils (%) (Auto) 3% (0-3) Basophils (%) (Auto) 1% (0-3) Neutrophils # (Auto) 2.1x10^3uL (1.8-7.7) Lymphocytes # (Auto) 1.0x10^3/uL (1.0-4.8) Monocytes # (Auto) 0.7x10^3/uL (0.0-1.1) Eosinophils # (Auto) 0.1x10^3/uL (0.0-0.7) Basophils # (Auto) 0.0x10^3/uL (0.0-0.2) Sodium Level 139mmol/L (136-145) Potassium Level 5.0mmol/L (3.5-5.1) Chloride Level 101mmol/L (98-107) Carbon Dioxide Level 26mmol/L (21-32) Anion Gap 12 (6-14) Blood Urea Nitrogen 46mg/dL (7-20) Creatinine 8.2mg/dL (0.6-1.0) Estimated GFR (Cockcroft-Gault) 6.2 Glucose Level 95mg/dL (70-99) Calcium Level 8.5mg/dL (8.5-10.1) Test 12/11/16 11:42 Glucose (Fingerstick) 143mg/dL (70-99) Assessment and Plan Assessmemt and Plan Problems Medical Problems: (1) Acute on chronic renal failure Status: Acute (2) ESRD (end stage renal disease) Status: Acute (3) Hyperkalemia Status: Acute Problems: Comment Review of Relevant I have reviewed the following items hemal (where applicable) has been applied. Labs Laboratory Tests Test 12/09/16 13:30 12/09/16 18:04 12/09/16 20:45 12/10/16 03:50 Potassium Level 5.1mmol/L (3.5-5.1) 5.0mmol/L (3.5-5.1) Glucose (Fingerstick) 161mg/dL (70-99) 167mg/dL (70-99) White Blood Count 4.3x10^3/uL (4.0-11.0) Red Blood Count 2.77x10^6/uL (3.50-5.40) Hemoglobin 8.6g/dL (12.0-15.5) Hematocrit 25.7% (36.0-47.0) Mean Corpuscular Volume 93fL (79-100) Mean Corpuscular Hemoglobin 31pg (25-35) Mean Corpuscular Hemoglobin Concent 34g/dL (31-37) Red Cell Distribution Width 18.1% (11.5-14.5) Platelet Count 141x10^3/uL (140-400) Neutrophils (%) (Auto) 61% (31-73) Lymphocytes (%) (Auto) 19% (24-48) Monocytes (%) (Auto) 18% (0-9) Eosinophils (%) (Auto) 2% (0-3) Basophils (%) (Auto) 1% (0-3) Neutrophils # (Auto) 2.6x10^3uL (1.8-7.7) Lymphocytes # (Auto) 0.8x10^3/uL (1.0-4.8) Monocytes # (Auto) 0.8x10^3/uL (0.0-1.1) Eosinophils # (Auto) 0.1x10^3/uL (0.0-0.7) Basophils # (Auto) 0.0x10^3/uL (0.0-0.2) Sodium Level 140mmol/L (136-145) Chloride Level 100mmol/L (98-107) Carbon Dioxide Level 29mmol/L (21-32) Anion Gap 11 (6-14) Blood Urea Nitrogen 35mg/dL (7-20) Creatinine 6.6mg/dL (0.6-1.0) Estimated GFR (Cockcroft-Gault) 7.9 Glucose Level 165mg/dL (70-99) Calcium Level 8.3mg/dL (8.5-10.1) Test 12/10/16 07:09 12/10/16 10:14 12/10/16 16:38 12/10/16 20:59 Glucose (Fingerstick) 244mg/dL (70-99) 165mg/dL (70-99) 174mg/dL (70-99) 104mg/dL (70-99) Test 12/11/16 03:30 12/11/16 07:22 12/11/16 11:42 White Blood Count 3.9x10^3/uL (4.0-11.0) Red Blood Count 2.73x10^6/uL (3.50-5.40) Hemoglobin 8.3g/dL (12.0-15.5) Hematocrit 26.5% (36.0-47.0) Mean Corpuscular Volume 97fL (79-100) Mean Corpuscular Hemoglobin 31pg (25-35) Mean Corpuscular Hemoglobin Concent 31g/dL (31-37) Red Cell Distribution Width 18.2% (11.5-14.5) Platelet Count 120x10^3/uL (140-400) Neutrophils (%) (Auto) 54% (31-73) Lymphocytes (%) (Auto) 25% (24-48) Monocytes (%) (Auto) 17% (0-9) Eosinophils (%) (Auto) 3% (0-3) Basophils (%) (Auto) 1% (0-3) Neutrophils # (Auto) 2.1x10^3uL (1.8-7.7) Lymphocytes # (Auto) 1.0x10^3/uL (1.0-4.8) Monocytes # (Auto) 0.7x10^3/uL (0.0-1.1) Eosinophils # (Auto) 0.1x10^3/uL (0.0-0.7) Basophils # (Auto) 0.0x10^3/uL (0.0-0.2) Sodium Level 139mmol/L (136-145) Potassium Level 5.0mmol/L (3.5-5.1) Chloride Level 101mmol/L (98-107) Carbon Dioxide Level 26mmol/L (21-32) Anion Gap 12 (6-14) Blood Urea Nitrogen 46mg/dL (7-20) Creatinine 8.2mg/dL (0.6-1.0) Estimated GFR (Cockcroft-Gault) 6.2 Glucose Level 95mg/dL (70-99) Calcium Level 8.5mg/dL (8.5-10.1) Glucose (Fingerstick) 188mg/dL (70-99) 143mg/dL (70-99) Laboratory Tests Test 12/10/16 16:38 12/10/16 20:59 12/11/16 03:30 12/11/16 07:22 Glucose (Fingerstick) 174mg/dL (70-99) 104mg/dL (70-99) 188mg/dL (70-99) White Blood Count 3.9x10^3/uL (4.0-11.0) Red Blood Count 2.73x10^6/uL (3.50-5.40) Hemoglobin 8.3g/dL (12.0-15.5) Hematocrit 26.5% (36.0-47.0) Mean Corpuscular Volume 97fL (79-100) Mean Corpuscular Hemoglobin 31pg (25-35) Mean Corpuscular Hemoglobin Concent 31g/dL (31-37) Red Cell Distribution Width 18.2% (11.5-14.5) Platelet Count 120x10^3/uL (140-400) Neutrophils (%) (Auto) 54% (31-73) Lymphocytes (%) (Auto) 25% (24-48) Monocytes (%) (Auto) 17% (0-9) Eosinophils (%) (Auto) 3% (0-3) Basophils (%) (Auto) 1% (0-3) Neutrophils # (Auto) 2.1x10^3uL (1.8-7.7) Lymphocytes # (Auto) 1.0x10^3/uL (1.0-4.8) Monocytes # (Auto) 0.7x10^3/uL (0.0-1.1) Eosinophils # (Auto) 0.1x10^3/uL (0.0-0.7) Basophils # (Auto) 0.0x10^3/uL (0.0-0.2) Sodium Level 139mmol/L (136-145) Potassium Level 5.0mmol/L (3.5-5.1) Chloride Level 101mmol/L (98-107) Carbon Dioxide Level 26mmol/L (21-32) Anion Gap 12 (6-14) Blood Urea Nitrogen 46mg/dL (7-20) Creatinine 8.2mg/dL (0.6-1.0) Estimated GFR (Cockcroft-Gault) 6.2 Glucose Level 95mg/dL (70-99) Calcium Level 8.5mg/dL (8.5-10.1) Test 12/11/16 11:42 Glucose (Fingerstick) 143mg/dL (70-99) Medications Current Medications Acetaminophen/ Hydrocodone Bitart (Lortab 5/325) 1 tab 1X ONCE PO Last administered on 12/07/16 17:00; Start 12/07/16 at 17:00; Stop 12/07/16 at 17:01 ; Status DC Sodium Polystyrene Sulfonate (Kayexalate) 30 gm 1X ONCE PO Last administered on 12/07/16 18:50; Start 12/07/16 at 18:45; Stop 12/07/16 at 18:46; Status DC Ondansetron HCl (Zofran) 4 mg PRN Q8HRS PRN IV NAUSEA/VOMITING; Start 12/07/16 at 19:00; Stop 12/08/16 at 18:59; Status DC Alprazolam (Xanax) 0.5 mg PRN Q8HRS PRN PO ANXIETY / AGITATION Last administered on 12/09/16 08:13; Start 12/07/16 at 21:30 Amlodipine Besylate (Norvasc) 10 mg DAILY PO Last administered on 12/11/16 08: 19; Start 12/08/16 at 09:00 Calcium Acetate (Phoslo) 667 mg TIDWMEALS PO Last administered on 12/11/16 08: 18; Start 12/08/16 at 08:00 Carvedilol (Coreg) 12.5 mg BIDWMEALS PO Last administered on 12/11/16 08:19; Start 12/08/16 at 08:00 Divalproex Sodium (Depakote) 250 mg TID PO Last administered on 12/11/16 08:18 ; Start 12/08/16 at 09:00 Hydralazine HCl (Apresoline) 50 mg QID PO Last administered on 12/11/16 08:17; Start 12/08/16 at 09:00 Lamotrigine (LaMICtal) 25 mg DAILY PO Last administered on 12/11/16 08:18; Start 12/08/16 at 09:00 Levothyroxine Sodium (Synthroid) 125 mcg DAILYAC PO Last administered on 08:19; Start 12/08/16 at 07:30 Nicotine (Nicoderm Cq 21mg) 1 patch DAILY TD Last administered on 12/11/16 08: 19; Start 12/08/16 at 06:00 Ondansetron HCl (Zofran Odt) 4 mg PRN Q8HRS PRN PO nausea Last administered on 12/09/16 08:10; Start 12/07/16 at 21:30 Atorvastatin Calcium (Lipitor) 20 mg QHS PO Last administered on 12/10/16 20: 05; Start 12/08/16 at 21:00 Gabapentin (Neurontin) 300 mg DAILY PO Last administered on 12/11/16 08:17; Start 12/08/16 at 09:00 Olanzapine (Zyprexa) 10 mg QHS PO Last administered on 12/10/16 20:05; Start 12/07/16 at 21:45 Oxycodone HCl (Roxicodone) 10 mg PRN BID PRN PO SEVERE PAIN Last administered on 12/09/16 18:00; Start 12/07/16 at 21:45; Stop 12/10/16 at 01:15; Status DC Risperidone (Risperdal) 4 mg DAILY PO Last administered on 12/11/16 08:17; Start 12/08/16 at 09:00 Sertraline HCl (Zoloft) 200 mg DAILY PO Last administered on 12/11/16 08:17; Start 12/08/16 at 09:00 Sevelamer Carbonate (Renvela) 800 mg TIDWMEALS PO Last administered on 08:18; Start 12/08/16 at 08:00 Zolpidem Tartrate (Ambien) 5 mg PRN QHS PRN PO INSOMNIA, MAY REPEAT IN 1HR; Start 12/07/16 at 22:00 Furosemide (Lasix) 100 mg 1X ONCE IVP Last administered on 12/07/16 22:51; Start 12/07/16 at 22:30; Stop 12/07/16 at 22:31; Status DC Insulin Aspart (Novolog) 0-5 UNITS TIDWMEALS SQ Last administered on 12/11/16 08:26; Start 12/08/16 at 12:00 Dextrose (Dextrose 50%-Water Syringe) 12.5 gm PRN Q15MIN PRN IV SEE COMMENTS; Start 12/08/16 at 09:15 Darbepoetin Sourav 60 mcg 60 mcg WEEKLYHS SQ Last administered on 12/08/16 21:12 ; Start 12/08/16 at 21:00 Sodium Chloride (Iv Sodium Chloride 0.9% 1000ml Bag) 1,000 ml @ 1,000 mls/hr Q1H PRN IV hypotension; Start 12/08/16 at 11:25; Stop 12/08/16 at 17:24; Status DC Info (PHARMACY MONITORING -- do not chart) 1 each PRN DAILY PRN MC SEE COMMENTS ; Start 12/08/16 at 11:30; Status UNV Info (PHARMACY MONITORING -- do not chart) 1 each PRN DAILY PRN MC SEE COMMENTS ; Start 12/08/16 at 11:30 Acetaminophen (Tylenol) 650 mg PRN Q6HRS PRN PO PAIN Last administered on 12:47; Start 12/08/16 at 12:30 Sodium Polystyrene Sulfonate (Kayexalate) 15 gm 1X ONCE PO Last administered on 12/09/16 17:54; Start 12/09/16 at 14:30; Stop 12/09/16 at 14:33; Status DC Oxycodone HCl (Roxicodone) 10 mg PRN Q2HR PRN PO SEVERE PAIN Last administered on 12/11/16 07:16; Start 12/10/16 at 01:15 Active Scripts Active Percocet 5-325 Mg Tablet (Oxycodone/Acetaminophen) 1 Each Tablet 1 Tab PO QID PRN Alprazolam 0.5 Mg Tablet 0.5 Mg PO Q8HRS PRN Oxycodone Hcl 10 Mg Tablet 1 Tab PO PRN BID PRN Olanzapine Odt (Olanzapine) 10 Mg Tab.rapdis 10 Mg PO QHS Lamotrigine 25 Mg Tablet 25 Mg PO DAILY 30 Days Zoloft (Sertraline Hcl) 100 Mg Tablet 200 Mg PO DAILY Risperidone 4 Mg Tablet 4 Mg PO DAILY Zofran Odt (Ondansetron) 4 Mg Tab.rapdis 1 Tab SL Q8HRS Reported NICODERM CQ 21mg (Nicotine) 1 Each Patch.td24 1 Patch TP DAILY Depakote (Divalproex Sodium) 250 Mg Tablet.dr 250 Mg PO TID Amlodipine Besylate 10 Mg Tablet 10 Mg PO DAILY Hydralazine Hcl 50 Mg Tablet 50 Mg PO QID Renagel (Sevelamer Hcl) 800 Mg Tablet 800 Mg PO TIDWMEALS Simvastatin 40 Mg Tablet 40 Mg PO HS Levothyroxine Sodium 125 Mcg Tablet 125 Mcg PO DAILYAC Gabapentin 300 Mg Capsule 300 Mg PO DAILY Phoslo (Calcium Acetate) 667 Mg Capsule 667 Mg PO TIDWMEALS Carvedilol 12.5 Mg Tablet 12.5 Mg PO BIDWMEALS Vitals/I & O Vital Sign - Last 24 Hours 12/10/16 12/10/16 12/10/16 12/10/16 12:23 12:23 14:53 16:31 Temp 98.1 98.1 Pulse 79 78 78 Resp 20 B/P 132/79 149/84 149/84 Pulse Ox 92 95 O2 Delivery Room Air Room Air 12/10/16 12/10/16 12/10/16 12/10/16 16:31 19:00 20:05 20:06 Temp 98.6 98.6 Pulse 78 74 74 Resp 16 18 B/P 149/84 128/75 128/75 Pulse Ox 91 95 O2 Delivery Room Air 12/10/16 12/10/16 12/10/16 12/11/16 20:36 20:57 23:00 03:00 Temp 98.3 99.0 98.3 99.0 Pulse 70 77 Resp 18 16 18 B/P 109/70 134/87 Pulse Ox 95 98 92 O2 Delivery Room Air 12/11/16 12/11/16 12/11/16 12/11/16 07:00 07:16 08:00 08:17 Temp 98.9 98.9 Pulse 83 83 Resp 16 18 B/P 150/87 150/87 Pulse Ox 94 92 O2 Delivery Room Air Room Air Room Air 12/11/16 12/11/16 12/11/16 12/11/16 08:19 08:19 08:27 11:00 Temp 97.4 97.4 Pulse 83 83 75 Resp 16 B/P 150/87 150/87 131/76 Pulse Ox 93 O2 Delivery Room Air Room Air Intake and Output 12/10/16 12/10/16 12/11/16 14:59 22:59 06:59 Intake Total 240 ml 180 ml 480 ml Balance 240 ml 180 ml 480 ml Nutrition Consultation Dietary Evaluation: Recommendations by RD: Increase Calorie Intake, Protein supplementation Comments: Add Novasource Renal at lunch Discussed the potassium content of foods and provided an education handout Expected Outcomes/Goals: meet 75% estimated nutrition needs Malnutrition Findings: Reduced Drawing Frame Tender Strength: N/A Weight Status: Obese Fluid Accumulation (N/A): N/A BRANDI JARA MD December 11, 2016 12:10
[2016-12-11] MEDS ORDERED: Oxycodone Hcl PO (12:31)
--- NOTE | 2016-12-11 14:37 | PDOC ---
SUBJECTIVE ROS ESRD doing well overall CVS: no Orthopnea, no CP RESP: no SOB, no SAMPSON GI: no Nausea, no Vomiting : no Dysuria, no Urgency OBJECTIVE Vital Signs Vital Signs Date Time Temp Pulse Resp B/P Pulse Ox O2 Delivery O2 Flow Rate FiO2 12/11/16 11:00 97.4 75 16 131/76 93 Room Air 97.4 I & 0 Intake and Output 12/11/16 07:00 Intake Total 900 ml Balance 900 ml Intake Oral 900 ml # Voids 8 PHYSICAL EXAM Physical Exam General Appearance: Awake Alert Oriented x 2 In no Distress Eyes: VIsion Unchanged Conjunctiva Normal EN: No EN Drainage Mucous Memb. moist Neck: no JVD no JVP Supple no Thyromegaly CVS: S1 S2 soft Murmur No Gallop No Rub no Edema Resp: no Rales no Rhonchi no Acc. Muscle use GI: BAS +ve NO Bruit Non Tender Non Distended : no CVA tenderness; no Suprapubic Tenderness Assessment & Plan ESRD: Current fluid and E-lyte status does not necessitate emergent need for dialysis. Will re-evaluate for dialysis in the am and continue on TTSAt schedule. ^K OA - today marginal - HD in am AV Acess with Aneurysm - vasc Surgery eval noted Anemia: Epogen as ordered, HTN: Current BP meds reviewed. See orders for changes. 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 Ct Current binder regimen and alter dose based on trend an PO intake COMMENT/RELEVANT DATA Meds Current Medications Medications (Trade) Dose Ordered Sig/Zayda Start Time Stop Time Status Last Admin Dose Admin Acetaminophen (Tylenol) 650 mg PRN Q6HRS PRN 12/08/16 12:30 12/08/16 12:47 650 MG Acetaminophen/ Hydrocodone Bitart (Lortab 5/325) 1 tab 1X ONCE 12/07/16 17:00 12/07/16 17:01 DC 12/07/16 17:00 1 TAB Alprazolam (Xanax) 0.5 mg PRN Q8HRS PRN 12/07/16 21:30 12/09/16 08:13 0.5 MG Amlodipine Besylate (Norvasc) 10 mg DAILY 12/08/16 09:00 12/11/16 08:19 10 MG Atorvastatin Calcium (Lipitor) 20 mg QHS 12/08/16 21:00 12/10/16 20:05 20 MG Calcium Acetate (Phoslo) 667 mg TIDWMEALS 12/08/16 08:00 12/11/16 12:13 667 MG Carvedilol (Coreg) 12.5 mg BIDWMEALS 12/08/16 08:00 12/11/16 08:19 12.5 MG Darbepoetin Sourav 60 mcg 60 mcg WEEKLYHS 12/08/16 21:00 12/08/16 21:12 60 MCG Dextrose (Dextrose 50%-Water Syringe) 12.5 gm PRN Q15MIN PRN 12/08/16 09:15 Divalproex Sodium (Depakote) 250 mg TID 12/08/16 09:00 12/11/16 08:18 250 MG Furosemide (Lasix) 100 mg 1X ONCE 12/07/16 22:30 12/07/16 22:31 DC 12/07/16 22:51 100 MG Gabapentin (Neurontin) 300 mg DAILY 12/08/16 09:00 12/11/16 08:17 300 MG Hydralazine HCl (Apresoline) 50 mg QID 12/08/16 09:00 12/11/16 08:17 50 MG Info (PHARMACY MONITORING -- do not chart) 1 each PRN DAILY PRN 12/08/16 11:30 Insulin Aspart (Novolog) 0-5 UNITS TIDWMEALS 12/08/16 12:00 12/11/16 08:26 2 UNITS Lamotrigine (LaMICtal) 25 mg DAILY 12/08/16 09:00 12/11/16 08:18 25 MG Levothyroxine Sodium (Synthroid) 125 mcg DAILYAC 12/08/16 07:30 12/11/16 08:19 125 MCG Nicotine (Nicoderm Cq 21mg) 1 patch DAILY 12/08/16 06:00 12/11/16 08:19 1 PATCH Olanzapine (Zyprexa) 10 mg QHS 12/07/16 21:45 12/10/16 20:05 10 MG Ondansetron HCl (Zofran Odt) 4 mg PRN Q8HRS PRN 12/07/16 21:30 12/09/16 08:10 4 MG Ondansetron HCl (Zofran) 4 mg PRN Q8HRS PRN 12/07/16 19:00 12/08/16 18:59 DC Oxycodone HCl (Roxicodone) 10 mg PRN Q2HR PRN 12/10/16 01:15 12/11/16 07:16 10 MG Risperidone (Risperdal) 4 mg DAILY 12/08/16 09:00 12/11/16 08:17 4 MG Sertraline HCl (Zoloft) 200 mg DAILY 12/08/16 09:00 12/11/16 08:17 200 MG Sevelamer Carbonate (Renvela) 800 mg TIDWMEALS 12/08/16 08:00 12/11/16 12:13 800 MG Sodium Polystyrene Sulfonate (Kayexalate) 15 gm 1X ONCE 12/09/16 14:30 12/09/16 14:33 DC 12/09/16 17:54 15 GM Sodium Chloride (Iv Sodium Chloride 0.9% 1000ml Bag) 1,000 ml @ 1,000 mls/hr Q1H PRN 12/08/16 11:25 12/08/16 17:24 DC Zolpidem Tartrate (Ambien) 5 mg PRN QHS PRN 12/07/16 22:00 Lab Laboratory Tests Test 12/10/16 16:38 12/10/16 20:59 12/11/16 03:30 12/11/16 07:22 Glucose (Fingerstick) 174mg/dL (70-99) 104mg/dL (70-99) 188mg/dL (70-99) White Blood Count 3.9x10^3/uL (4.0-11.0) Red Blood Count 2.73x10^6/uL (3.50-5.40) Hemoglobin 8.3g/dL (12.0-15.5) Hematocrit 26.5% (36.0-47.0) Mean Corpuscular Volume 97fL (79-100) Mean Corpuscular Hemoglobin 31pg (25-35) Mean Corpuscular Hemoglobin Concent 31g/dL (31-37) Red Cell Distribution Width 18.2% (11.5-14.5) Platelet Count 120x10^3/uL (140-400) Neutrophils (%) (Auto) 54% (31-73) Lymphocytes (%) (Auto) 25% (24-48) Monocytes (%) (Auto) 17% (0-9) Eosinophils (%) (Auto) 3% (0-3) Basophils (%) (Auto) 1% (0-3) Neutrophils # (Auto) 2.1x10^3uL (1.8-7.7) Lymphocytes # (Auto) 1.0x10^3/uL (1.0-4.8) Monocytes # (Auto) 0.7x10^3/uL (0.0-1.1) Eosinophils # (Auto) 0.1x10^3/uL (0.0-0.7) Basophils # (Auto) 0.0x10^3/uL (0.0-0.2) Sodium Level 139mmol/L (136-145) Potassium Level 5.0mmol/L (3.5-5.1) Chloride Level 101mmol/L (98-107) Carbon Dioxide Level 26mmol/L (21-32) Anion Gap 12 (6-14) Blood Urea Nitrogen 46mg/dL (7-20) Creatinine 8.2mg/dL (0.6-1.0) Estimated GFR (Cockcroft-Gault) 6.2 Glucose Level 95mg/dL (70-99) Calcium Level 8.5mg/dL (8.5-10.1) Test 12/11/16 11:42 Glucose (Fingerstick) 143mg/dL (70-99) SHYANNE TYLER MD December 11, 2016 14:37
[2016-12-11] MEDS ORDERED: MAGNESIUM SULFATE 2GM 50 ML IV PRN (14:45)
[2016-12-11 15:06] VITALS: BP 138/84
[2016-12-11 19:00] VITALS: BP 119/62
[2016-12-11] MEDS: ATORVASTATIN CALCIUM 20 MG TABLET PO SCH (20:36)
[2016-12-11] MEDS: OLANZapine 5 MG TABLET PO SCH (20:36)
[2016-12-11] MEDS: ALPRAZolam 0.5 MG TABLET PO PRN (21:11)
[2016-12-11 23:00] VITALS: BP 109/62
[2016-12-12 07:00] VITALS: BP 115/67
[2016-12-12] MEDS: INSULIN ASPART 300 UNITS/3 ML INSULN.PEN SQ SCH (07:26)
[2016-12-12] MEDS: oxyCODONE IR 5 MG TABLET PO PRN (07:30)
[2016-12-12] MEDS: CALCIUM ACETATE 667 MG CAPSULE PO SCH ×2 (08:00→11:22)
[2016-12-12] MEDS: SEVELAMER CARBONATE 800 MG TABLET. PO SCH ×2 (08:00→11:22)
[2016-12-12] MEDS ORDERED: IV NORMAL SALINE 1000ML BAG 1,000 ML IV PRN ×2 (08:06)
[2016-12-12] MEDS ORDERED: DIALYSIS PATIENT. MC PRN (08:15)
[2016-12-12] MEDS: GABAPENTIN 300 MG CAPSULE. PO SCH (09:00)
--- NOTE | 2016-12-12 09:16 | PDOC ---
PROGRESS NOTES Subjective Subjective No new complaints. Objective Objective Vital Signs Date Time Temp Pulse Resp B/P Pulse Ox O2 Delivery O2 Flow Rate FiO2 12/12/16 07:34 Room Air 12/12/16 07:00 98.0 66 16 115/67 94 98.0 Intake and Output 12/12/16 07:00 Intake Total 960 ml Balance 960 ml Intake Oral 960 ml # Voids 1 Physical Exam Physical Exam She is comfortable on dialysis table.She continues to be independent with her mobility and self care. Assessment Assessment Problems Medical Problems: (1) Acute on chronic renal failure Status: Acute (2) ESRD (end stage renal disease) Status: Acute (3) Hyperkalemia Status: Acute Plan Plan of Care Waiting for placement. Comment Review of Relevant I have reviewed the following items hemal (where applicable) has been applied. Labs Laboratory Tests Test 12/10/16 10:14 12/10/16 16:38 12/10/16 20:59 12/11/16 03:30 Glucose (Fingerstick) 165mg/dL (70-99) 174mg/dL (70-99) 104mg/dL (70-99) White Blood Count 3.9x10^3/uL (4.0-11.0) Red Blood Count 2.73x10^6/uL (3.50-5.40) Hemoglobin 8.3g/dL (12.0-15.5) Hematocrit 26.5% (36.0-47.0) Mean Corpuscular Volume 97fL (79-100) Mean Corpuscular Hemoglobin 31pg (25-35) Mean Corpuscular Hemoglobin Concent 31g/dL (31-37) Red Cell Distribution Width 18.2% (11.5-14.5) Platelet Count 120x10^3/uL (140-400) Neutrophils (%) (Auto) 54% (31-73) Lymphocytes (%) (Auto) 25% (24-48) Monocytes (%) (Auto) 17% (0-9) Eosinophils (%) (Auto) 3% (0-3) Basophils (%) (Auto) 1% (0-3) Neutrophils # (Auto) 2.1x10^3uL (1.8-7.7) Lymphocytes # (Auto) 1.0x10^3/uL (1.0-4.8) Monocytes # (Auto) 0.7x10^3/uL (0.0-1.1) Eosinophils # (Auto) 0.1x10^3/uL (0.0-0.7) Basophils # (Auto) 0.0x10^3/uL (0.0-0.2) Sodium Level 139mmol/L (136-145) Potassium Level 5.0mmol/L (3.5-5.1) Chloride Level 101mmol/L (98-107) Carbon Dioxide Level 26mmol/L (21-32) Anion Gap 12 (6-14) Blood Urea Nitrogen 46mg/dL (7-20) Creatinine 8.2mg/dL (0.6-1.0) Estimated GFR (Cockcroft-Gault) 6.2 Glucose Level 95mg/dL (70-99) Calcium Level 8.5mg/dL (8.5-10.1) Test 12/11/16 07:22 12/11/16 11:42 12/11/16 20:58 12/12/16 03:17 Glucose (Fingerstick) 188mg/dL (70-99) 143mg/dL (70-99) 77mg/dL (70-99) 153mg/dL (70-99) Test 12/12/16 06:58 Glucose (Fingerstick) 113mg/dL (70-99) Laboratory Tests Test 12/11/16 11:42 12/11/16 20:58 12/12/16 03:17 12/12/16 06:58 Glucose (Fingerstick) 143mg/dL (70-99) 77mg/dL (70-99) 153mg/dL (70-99) 113mg/dL (70-99) Medications Current Medications Acetaminophen/ Hydrocodone Bitart (Lortab 5/325) 1 tab 1X ONCE PO Last administered on 12/07/16 17:00; Start 12/07/16 at 17:00; Stop 12/07/16 at 17:01 ; Status DC Sodium Polystyrene Sulfonate (Kayexalate) 30 gm 1X ONCE PO Last administered on 12/07/16 18:50; Start 12/07/16 at 18:45; Stop 12/07/16 at 18:46; Status DC Ondansetron HCl (Zofran) 4 mg PRN Q8HRS PRN IV NAUSEA/VOMITING; Start 12/07/16 at 19:00; Stop 12/08/16 at 18:59; Status DC Alprazolam (Xanax) 0.5 mg PRN Q8HRS PRN PO ANXIETY / AGITATION Last administered on 12/11/16 21:11; Start 12/07/16 at 21:30 Amlodipine Besylate (Norvasc) 10 mg DAILY PO Last administered on 12/11/16 08: 19; Start 12/08/16 at 09:00 Calcium Acetate (Phoslo) 667 mg TIDWMEALS PO Last administered on 12/11/16 16: 55; Start 12/08/16 at 08:00 Carvedilol (Coreg) 12.5 mg BIDWMEALS PO Last administered on 12/11/16 16:56; Start 12/08/16 at 08:00 Divalproex Sodium (Depakote) 250 mg TID PO Last administered on 12/11/16 20:36 ; Start 12/08/16 at 09:00 Hydralazine HCl (Apresoline) 50 mg QID PO Last administered on 12/11/16 20:36; Start 12/08/16 at 09:00 Lamotrigine (LaMICtal) 25 mg DAILY PO Last administered on 12/11/16 08:18; Start 12/08/16 at 09:00 Levothyroxine Sodium (Synthroid) 125 mcg DAILYAC PO Last administered on 08:19; Start 12/08/16 at 07:30 Nicotine (Nicoderm Cq 21mg) 1 patch DAILY TD Last administered on 12/11/16 08: 19; Start 12/08/16 at 06:00 Ondansetron HCl (Zofran Odt) 4 mg PRN Q8HRS PRN PO nausea Last administered on 12/09/16 08:10; Start 12/07/16 at 21:30 Atorvastatin Calcium (Lipitor) 20 mg QHS PO Last administered on 12/11/16 20:36 ; Start 12/08/16 at 21:00 Gabapentin (Neurontin) 300 mg DAILY PO Last administered on 12/11/16 08:17; Start 12/08/16 at 09:00 Olanzapine (Zyprexa) 10 mg QHS PO Last administered on 12/11/16 20:36; Start at 21:45 Oxycodone HCl (Roxicodone) 10 mg PRN BID PRN PO SEVERE PAIN Last administered on 12/09/16 18:00; Start 12/07/16 at 21:45; Stop 12/10/16 at 01:15; Status DC Risperidone (Risperdal) 4 mg DAILY PO Last administered on 12/11/16 08:17; Start 12/08/16 at 09:00 Sertraline HCl (Zoloft) 200 mg DAILY PO Last administered on 12/11/16 08:17; Start 12/08/16 at 09:00 Sevelamer Carbonate (Renvela) 800 mg TIDWMEALS PO Last administered on 16:55; Start 12/08/16 at 08:00 Zolpidem Tartrate (Ambien) 5 mg PRN QHS PRN PO INSOMNIA, MAY REPEAT IN 1HR; Start 12/07/16 at 22:00 Furosemide (Lasix) 100 mg 1X ONCE IVP Last administered on 12/07/16 22:51; Start 12/07/16 at 22:30; Stop 12/07/16 at 22:31; Status DC Insulin Aspart (Novolog) 0-5 UNITS TIDWMEALS SQ Last administered on 12/11/16 16:59; Start 12/08/16 at 12:00 Dextrose (Dextrose 50%-Water Syringe) 12.5 gm PRN Q15MIN PRN IV SEE COMMENTS; Start 12/08/16 at 09:15 Darbepoetin Sourav 60 mcg 60 mcg WEEKLYHS SQ Last administered on 12/08/16 21:12 ; Start 12/08/16 at 21:00 Sodium Chloride (Iv Sodium Chloride 0.9% 1000ml Bag) 1,000 ml @ 1,000 mls/hr Q1H PRN IV hypotension; Start 12/08/16 at 11:25; Stop 12/08/16 at 17:24; Status DC Info (PHARMACY MONITORING -- do not chart) 1 each PRN DAILY PRN MC SEE COMMENTS ; Start 12/08/16 at 11:30; Status UNV Info (PHARMACY MONITORING -- do not chart) 1 each PRN DAILY PRN MC SEE COMMENTS ; Start 12/08/16 at 11:30 Acetaminophen (Tylenol) 650 mg PRN Q6HRS PRN PO PAIN Last administered on 12:47; Start 12/08/16 at 12:30 Sodium Polystyrene Sulfonate (Kayexalate) 15 gm 1X ONCE PO Last administered on 12/09/16 17:54; Start 12/09/16 at 14:30; Stop 12/09/16 at 14:33; Status DC Oxycodone HCl 10 mg 10 mg PRN Q2HR PRN PO SEVERE PAIN Last administered on 07:30; Start 12/10/16 at 01:15 Magnesium Sulfate/ Dextrose 50 ml @ 25 mls/hr PRN DAILY PRN IV for mag < 1.7 on am labs; Start 12/11/16 at 14:45 Sodium Chloride 1,000 ml @ 1,000 mls/hr Q1H PRN IV hypotension; Start 12/12/16 at 08:06; Stop 12/12/16 at 14:05 Sodium Chloride (Iv Sodium Chloride 0.9% 1000ml Bag) 1,000 ml @ 400 mls/hr Q2H30M PRN IV PATENCY; Start 12/12/16 at 08:06; Stop 12/12/16 at 20:05 Info (PHARMACY MONITORING -- do not chart) 1 each PRN DAILY PRN MC SEE COMMENTS ; Start 12/12/16 at 08:15 Active Scripts Active [Oxycodone Hcl] 5 MG Tablet 5 Mg PO PRN Q2HR PRN Percocet 5-325 Mg Tablet (Oxycodone/Acetaminophen) 1 Each Tablet 1 Tab PO QID PRN Alprazolam 0.5 Mg Tablet 0.5 Mg PO Q8HRS PRN Oxycodone Hcl 10 Mg Tablet 1 Tab PO PRN BID PRN Olanzapine Odt (Olanzapine) 10 Mg Tab.rapdis 10 Mg PO QHS Lamotrigine 25 Mg Tablet 25 Mg PO DAILY 30 Days Zoloft (Sertraline Hcl) 100 Mg Tablet 200 Mg PO DAILY Risperidone 4 Mg Tablet 4 Mg PO DAILY Zofran Odt (Ondansetron) 4 Mg Tab.rapdis 1 Tab SL Q8HRS Reported NICODERM CQ 21mg (Nicotine) 1 Each Patch.td24 1 Patch TP DAILY Depakote (Divalproex Sodium) 250 Mg Tablet.dr 250 Mg PO TID Amlodipine Besylate 10 Mg Tablet 10 Mg PO DAILY Hydralazine Hcl 50 Mg Tablet 50 Mg PO QID Renagel (Sevelamer Hcl) 800 Mg Tablet 800 Mg PO TIDWMEALS Simvastatin 40 Mg Tablet 40 Mg PO HS Levothyroxine Sodium 125 Mcg Tablet 125 Mcg PO DAILYAC Gabapentin 300 Mg Capsule 300 Mg PO DAILY Phoslo (Calcium Acetate) 667 Mg Capsule 667 Mg PO TIDWMEALS Carvedilol 12.5 Mg Tablet 12.5 Mg PO BIDWMEALS Vitals/I & O Vital Sign - Last 24 Hours 12/11/16 12/11/16 12/11/16 12/11/16 11:00 14:29 14:30 15:06 Temp 97.4 98.1 97.4 98.1 Pulse 75 71 71 Resp 16 18 B/P 131/76 138/84 138/84 Pulse Ox 93 92 O2 Delivery Room Air Room Air Room Air 12/11/16 12/11/16 12/11/16 12/11/16 16:55 16:56 19:00 20:36 Temp 99.5 99.5 Pulse 69 69 70 70 Resp 18 B/P 118/71 118/71 119/62 119/62 Pulse Ox 97 12/11/16 12/11/16 12/12/16 12/12/16 20:40 23:00 07:00 07:30 Temp 98.2 98.0 98.2 98.0 Pulse 67 66 Resp 20 18 16 B/P 109/62 115/67 Pulse Ox 95 94 O2 Delivery Room Air Room Air Room Air 12/12/16 07:34 O2 Delivery Room Air Intake and Output 12/11/16 12/11/16 12/12/16 15:00 23:00 07:00 Intake Total 720 ml 240 ml Balance 720 ml 240 ml Nutrition Consultation Dietary Evaluation: Recommendations by RD: Increase Calorie Intake, Protein supplementation Comments: Add Nubiaasourjasvir Renal at lunch Discussed the potassium content of foods and provided an education handout Expected Outcomes/Goals: meet 75% estimated nutrition needs Malnutrition Findings: Reduced Historic Sites Supervisor Strength: N/A Weight Status: Obese Fluid Accumulation (N/A): N/A AR NORMAN MD December 12, 2016 09:16
--- NOTE | 2016-12-12 09:36 | PDOC ---
Dialysis Progress Note Dialysis Note Dialysis Note Seen on Hemodialysis, tolerating treatment Well Vitals on Hemodialysis: 144/59 77 afeb General Appearance: Asleep] Neck: No JVD or JVP Chest: CTA Calixto Heart: S1 S2 Abdomen - Soft NTND Extremities - No Edema ESRD : Dialysis as below F 180 NR 3.5 Hrs 2 K 2.5 Ca 140 Na 35 HC03 Qb 350 + Qd 500+ Heparin 0 Units Uf 3-4 Kgs or to dry weight as tolerated May give 25-50 gms of 25% Albumin if needed to maintain Hemodynamic stability Treatment plan reviewed and discussed with hand silvering supervisor Vitals Vital Signs Vital Signs Date Time Temp Pulse Resp B/P Pulse Ox O2 Delivery O2 Flow Rate FiO2 12/12/16 07:34 Room Air 12/12/16 07:00 98.0 66 16 115/67 94 98.0 Labs Last Labs Laboratory Tests Test 12/10/16 10:14 12/10/16 16:38 12/10/16 20:59 12/11/16 03:30 Glucose (Fingerstick) 165mg/dL (70-99) 174mg/dL (70-99) 104mg/dL (70-99) White Blood Count 3.9x10^3/uL (4.0-11.0) Red Blood Count 2.73x10^6/uL (3.50-5.40) Hemoglobin 8.3g/dL (12.0-15.5) Hematocrit 26.5% (36.0-47.0) Mean Corpuscular Volume 97fL (79-100) Mean Corpuscular Hemoglobin 31pg (25-35) Mean Corpuscular Hemoglobin Concent 31g/dL (31-37) Red Cell Distribution Width 18.2% (11.5-14.5) Platelet Count 120x10^3/uL (140-400) Neutrophils (%) (Auto) 54% (31-73) Lymphocytes (%) (Auto) 25% (24-48) Monocytes (%) (Auto) 17% (0-9) Eosinophils (%) (Auto) 3% (0-3) Basophils (%) (Auto) 1% (0-3) Neutrophils # (Auto) 2.1x10^3uL (1.8-7.7) Lymphocytes # (Auto) 1.0x10^3/uL (1.0-4.8) Monocytes # (Auto) 0.7x10^3/uL (0.0-1.1) Eosinophils # (Auto) 0.1x10^3/uL (0.0-0.7) Basophils # (Auto) 0.0x10^3/uL (0.0-0.2) Sodium Level 139mmol/L (136-145) Potassium Level 5.0mmol/L (3.5-5.1) Chloride Level 101mmol/L (98-107) Carbon Dioxide Level 26mmol/L (21-32) Anion Gap 12 (6-14) Blood Urea Nitrogen 46mg/dL (7-20) Creatinine 8.2mg/dL (0.6-1.0) Estimated GFR (Cockcroft-Gault) 6.2 Glucose Level 95mg/dL (70-99) Calcium Level 8.5mg/dL (8.5-10.1) Test 12/11/16 07:22 12/11/16 11:42 12/11/16 20:58 12/12/16 03:17 Glucose (Fingerstick) 188mg/dL (70-99) 143mg/dL (70-99) 77mg/dL (70-99) 153mg/dL (70-99) Test 12/12/16 06:58 Glucose (Fingerstick) 113mg/dL (70-99) Laboratory Tests Test 12/11/16 11:42 12/11/16 20:58 12/12/16 03:17 12/12/16 06:58 Glucose (Fingerstick) 143mg/dL (70-99) 77mg/dL (70-99) 153mg/dL (70-99) 113mg/dL (70-99) Assessment Assessment Problems Medical Problems: (1) Acute on chronic renal failure Status: Acute (2) ESRD (end stage renal disease) Status: Acute (3) Hyperkalemia Status: Acute Problems: Plan Plan of Care Problems Medical Problems: (1) Acute on chronic renal failure Status: Acute (2) ESRD (end stage renal disease) Status: Acute (3) Hyperkalemia Status: Acute SHYANNE TYLER MD December 12, 2016 09:36
--- NOTE | 2016-12-12 10:27 | PDOC ---
PROGRESS NOTES Subjective Subjective "I don't know if I am leaving today or not. I just keep sleeping." Objective Objective Vascular Surgery follow up: (pt seen while on dialysis) O: Had to wake pt up. Complains that right arm hurts while on dialysis. RUE: Obvious aneurysmal changes noted. Right hand warm. Assessment/Plan: 1. CKD on hemodialysis. 2. 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 Dr. Olson's office staff was provided phone and fax number to the location of where pt will be discharged to today. 3. Will plan for CLAY translocation + excision of aneurysmal areas for next week. Most likely will need a temp cath placed for dialysis Tu, Th, Sat 4. Ok to discharge today from vascular surgery perspective when arrangements can be coordinated. Vital Signs Date Time Temp Pulse Resp B/P Pulse Ox O2 Delivery O2 Flow Rate FiO2 12/12/16 07:34 Room Air 12/12/16 07:00 98.0 66 16 115/67 94 98.0 Intake and Output 12/12/16 07:00 Intake Total 960 ml Balance 960 ml Intake Oral 960 ml # Voids 1 Assessment Assessment Problems Medical Problems: (1) Acute on chronic renal failure Status: Acute (2) ESRD (end stage renal disease) Status: Acute (3) Hyperkalemia Status: Acute Comment Review of Relevant I have reviewed the following items hemal (where applicable) has been applied. Labs Laboratory Tests Test 12/10/16 16:38 12/10/16 20:59 12/11/16 03:30 12/11/16 07:22 Glucose (Fingerstick) 174mg/dL (70-99) 104mg/dL (70-99) 188mg/dL (70-99) White Blood Count 3.9x10^3/uL (4.0-11.0) Red Blood Count 2.73x10^6/uL (3.50-5.40) Hemoglobin 8.3g/dL (12.0-15.5) Hematocrit 26.5% (36.0-47.0) Mean Corpuscular Volume 97fL (79-100) Mean Corpuscular Hemoglobin 31pg (25-35) Mean Corpuscular Hemoglobin Concent 31g/dL (31-37) Red Cell Distribution Width 18.2% (11.5-14.5) Platelet Count 120x10^3/uL (140-400) Neutrophils (%) (Auto) 54% (31-73) Lymphocytes (%) (Auto) 25% (24-48) Monocytes (%) (Auto) 17% (0-9) Eosinophils (%) (Auto) 3% (0-3) Basophils (%) (Auto) 1% (0-3) Neutrophils # (Auto) 2.1x10^3uL (1.8-7.7) Lymphocytes # (Auto) 1.0x10^3/uL (1.0-4.8) Monocytes # (Auto) 0.7x10^3/uL (0.0-1.1) Eosinophils # (Auto) 0.1x10^3/uL (0.0-0.7) Basophils # (Auto) 0.0x10^3/uL (0.0-0.2) Sodium Level 139mmol/L (136-145) Potassium Level 5.0mmol/L (3.5-5.1) Chloride Level 101mmol/L (98-107) Carbon Dioxide Level 26mmol/L (21-32) Anion Gap 12 (6-14) Blood Urea Nitrogen 46mg/dL (7-20) Creatinine 8.2mg/dL (0.6-1.0) Estimated GFR (Cockcroft-Gault) 6.2 Glucose Level 95mg/dL (70-99) Calcium Level 8.5mg/dL (8.5-10.1) Test 12/11/16 11:42 12/11/16 20:58 12/12/16 03:17 12/12/16 06:58 Glucose (Fingerstick) 143mg/dL (70-99) 77mg/dL (70-99) 153mg/dL (70-99) 113mg/dL (70-99) Laboratory Tests Test 12/11/16 11:42 12/11/16 20:58 12/12/16 03:17 12/12/16 06:58 Glucose (Fingerstick) 143mg/dL (70-99) 77mg/dL (70-99) 153mg/dL (70-99) 113mg/dL (70-99) Medications Current Medications Acetaminophen/ Hydrocodone Bitart (Lortab 5/325) 1 tab 1X ONCE PO Last administered on 12/07/16 17:00; Start 12/07/16 at 17:00; Stop 12/07/16 at 17:01 ; Status DC Sodium Polystyrene Sulfonate (Kayexalate) 30 gm 1X ONCE PO Last administered on 12/07/16 18:50; Start 12/07/16 at 18:45; Stop 12/07/16 at 18:46; Status DC Ondansetron HCl (Zofran) 4 mg PRN Q8HRS PRN IV NAUSEA/VOMITING; Start 12/07/16 at 19:00; Stop 12/08/16 at 18:59; Status DC Alprazolam (Xanax) 0.5 mg PRN Q8HRS PRN PO ANXIETY / AGITATION Last administered on 12/11/16 21:11; Start 12/07/16 at 21:30 Amlodipine Besylate (Norvasc) 10 mg DAILY PO Last administered on 12/11/16 08: 19; Start 12/08/16 at 09:00 Calcium Acetate (Phoslo) 667 mg TIDWMEALS PO Last administered on 12/11/16 16: 55; Start 12/08/16 at 08:00 Carvedilol (Coreg) 12.5 mg BIDWMEALS PO Last administered on 12/11/16 16:56; Start 12/08/16 at 08:00 Divalproex Sodium (Depakote) 250 mg TID PO Last administered on 12/11/16 20:36 ; Start 12/08/16 at 09:00 Hydralazine HCl (Apresoline) 50 mg QID PO Last administered on 12/11/16 20:36; Start 12/08/16 at 09:00 Lamotrigine (LaMICtal) 25 mg DAILY PO Last administered on 12/11/16 08:18; Start 12/08/16 at 09:00 Levothyroxine Sodium (Synthroid) 125 mcg DAILYAC PO Last administered on 08:19; Start 12/08/16 at 07:30 Nicotine (Nicoderm Cq 21mg) 1 patch DAILY TD Last administered on 12/11/16 08: 19; Start 12/08/16 at 06:00 Ondansetron HCl (Zofran Odt) 4 mg PRN Q8HRS PRN PO nausea Last administered on 12/09/16 08:10; Start 12/07/16 at 21:30 Atorvastatin Calcium (Lipitor) 20 mg QHS PO Last administered on 12/11/16 20:36 ; Start 12/08/16 at 21:00 Gabapentin (Neurontin) 300 mg DAILY PO Last administered on 12/11/16 08:17; Start 12/08/16 at 09:00 Olanzapine (Zyprexa) 10 mg QHS PO Last administered on 12/11/16 20:36; Start at 21:45 Oxycodone HCl (Roxicodone) 10 mg PRN BID PRN PO SEVERE PAIN Last administered on 12/09/16 18:00; Start 12/07/16 at 21:45; Stop 12/10/16 at 01:15; Status DC Risperidone (Risperdal) 4 mg DAILY PO Last administered on 12/11/16 08:17; Start 12/08/16 at 09:00 Sertraline HCl (Zoloft) 200 mg DAILY PO Last administered on 12/11/16 08:17; Start 12/08/16 at 09:00 Sevelamer Carbonate (Renvela) 800 mg TIDWMEALS PO Last administered on 16:55; Start 12/08/16 at 08:00 Zolpidem Tartrate (Ambien) 5 mg PRN QHS PRN PO INSOMNIA, MAY REPEAT IN 1HR; Start 12/07/16 at 22:00 Furosemide (Lasix) 100 mg 1X ONCE IVP Last administered on 12/07/16 22:51; Start 12/07/16 at 22:30; Stop 12/07/16 at 22:31; Status DC Insulin Aspart (Novolog) 0-5 UNITS TIDWMEALS SQ Last administered on 12/11/16 16:59; Start 12/08/16 at 12:00 Dextrose (Dextrose 50%-Water Syringe) 12.5 gm PRN Q15MIN PRN IV SEE COMMENTS; Start 12/08/16 at 09:15 Darbepoetin Sourav 60 mcg 60 mcg WEEKLYHS SQ Last administered on 12/08/16 21:12 ; Start 12/08/16 at 21:00 Sodium Chloride (Iv Sodium Chloride 0.9% 1000ml Bag) 1,000 ml @ 1,000 mls/hr Q1H PRN IV hypotension; Start 12/08/16 at 11:25; Stop 12/08/16 at 17:24; Status DC Info (PHARMACY MONITORING -- do not chart) 1 each PRN DAILY PRN MC SEE COMMENTS ; Start 12/08/16 at 11:30; Status UNV Info (PHARMACY MONITORING -- do not chart) 1 each PRN DAILY PRN MC SEE COMMENTS ; Start 12/08/16 at 11:30 Acetaminophen (Tylenol) 650 mg PRN Q6HRS PRN PO PAIN Last administered on 12:47; Start 12/08/16 at 12:30 Sodium Polystyrene Sulfonate (Kayexalate) 15 gm 1X ONCE PO Last administered on 12/09/16 17:54; Start 12/09/16 at 14:30; Stop 12/09/16 at 14:33; Status DC Oxycodone HCl 10 mg 10 mg PRN Q2HR PRN PO SEVERE PAIN Last administered on 07:30; Start 12/10/16 at 01:15 Magnesium Sulfate/ Dextrose 50 ml @ 25 mls/hr PRN DAILY PRN IV for mag < 1.7 on am labs; Start 12/11/16 at 14:45 Sodium Chloride 1,000 ml @ 1,000 mls/hr Q1H PRN IV hypotension; Start 12/12/16 at 08:06; Stop 12/12/16 at 14:05 Sodium Chloride (Iv Sodium Chloride 0.9% 1000ml Bag) 1,000 ml @ 400 mls/hr Q2H30M PRN IV PATENCY; Start 12/12/16 at 08:06; Stop 12/12/16 at 20:05 Info (PHARMACY MONITORING -- do not chart) 1 each PRN DAILY PRN MC SEE COMMENTS ; Start 12/12/16 at 08:15 Active Scripts Active [Oxycodone Hcl] 5 MG Tablet 5 Mg PO PRN Q2HR PRN Percocet 5-325 Mg Tablet (Oxycodone/Acetaminophen) 1 Each Tablet 1 Tab PO QID PRN Alprazolam 0.5 Mg Tablet 0.5 Mg PO Q8HRS PRN Oxycodone Hcl 10 Mg Tablet 1 Tab PO PRN BID PRN Olanzapine Odt (Olanzapine) 10 Mg Tab.rapdis 10 Mg PO QHS Lamotrigine 25 Mg Tablet 25 Mg PO DAILY 30 Days Zoloft (Sertraline Hcl) 100 Mg Tablet 200 Mg PO DAILY Risperidone 4 Mg Tablet 4 Mg PO DAILY Zofran Odt (Ondansetron) 4 Mg Tab.rapdis 1 Tab SL Q8HRS Reported NICODERM CQ 21mg (Nicotine) 1 Each Patch.td24 1 Patch TP DAILY Depakote (Divalproex Sodium) 250 Mg Tablet.dr 250 Mg PO TID Amlodipine Besylate 10 Mg Tablet 10 Mg PO DAILY Hydralazine Hcl 50 Mg Tablet 50 Mg PO QID Renagel (Sevelamer Hcl) 800 Mg Tablet 800 Mg PO TIDWMEALS Simvastatin 40 Mg Tablet 40 Mg PO HS Levothyroxine Sodium 125 Mcg Tablet 125 Mcg PO DAILYAC Gabapentin 300 Mg Capsule 300 Mg PO DAILY Phoslo (Calcium Acetate) 667 Mg Capsule 667 Mg PO TIDWMEALS Carvedilol 12.5 Mg Tablet 12.5 Mg PO BIDWMEALS Vitals/I & O Vital Sign - Last 24 Hours 12/11/16 12/11/16 12/11/16 12/11/16 11:00 14:29 14:30 15:06 Temp 97.4 98.1 97.4 98.1 Pulse 75 71 71 Resp 16 18 B/P 131/76 138/84 138/84 Pulse Ox 93 92 O2 Delivery Room Air Room Air Room Air 12/11/16 12/11/16 12/11/16 12/11/16 16:55 16:56 19:00 20:36 Temp 99.5 99.5 Pulse 69 69 70 70 Resp 18 B/P 118/71 118/71 119/62 119/62 Pulse Ox 97 12/11/16 12/11/16 12/12/16 12/12/16 20:40 23:00 07:00 07:30 Temp 98.2 98.0 98.2 98.0 Pulse 67 66 Resp 20 18 16 B/P 109/62 115/67 Pulse Ox 95 94 O2 Delivery Room Air Room Air Room Air 12/12/16 07:34 O2 Delivery Room Air Intake and Output 12/11/16 12/11/16 12/12/16 15:00 23:00 07:00 Intake Total 720 ml 240 ml Balance 720 ml 240 ml Nutrition Consultation Dietary Evaluation: Recommendations by RD: Increase Calorie Intake, Protein supplementation Comments: Add Novasource Renal at lunch Discussed the potassium content of foods and provided an education handout Expected Outcomes/Goals: meet 75% estimated nutrition needs Malnutrition Findings: Reduced Ironworker Strength: N/A Weight Status: Obese Fluid Accumulation (N/A): N/A CAROLYNE OLSON APRN December 12, 2016 10:27
[2016-12-12 11:20] VITALS: BP 148/74
[2016-12-12] MEDS: CARVEDILOL 12.5 MG TABLET. PO SCH (11:21)
[2016-12-12] MEDS: LEVOTHYROXINE 125 MCG TABLET PO SCH (11:21)
[2016-12-12 11:22] VITALS: BP 148/74
[2016-12-12] MEDS: amLODIPine BESYLATE 10 MG TABLET PO SCH (11:22)
[2016-12-12] MEDS: risperiDONE 1 MG TABLET. PO SCH (11:22)
[2016-12-12] MEDS: lamoTRIgine 25 MG TABLET. PO SCH (11:22)
[2016-12-12] MEDS: SERTRALINE 50 MG TABLET. PO SCH (11:22)
[2016-12-12] MEDS: DIVALPROEX DELAYED RELEASE 250 MG TABLET.DR. PO SCH (11:22)
[2016-12-12] MEDS: NICOTINE 21MG PATCH. TD SCH (11:22)
--- NOTE | 2016-12-13 18:46 | DS ---
DATE OF DISCHARGE: 12/12/2016 DISCHARGE DIAGNOSES: 1. Hyperkalemia, resolved. 2. End-stage renal disease, on hemodialysis, noncompliance. 3. Arteriovenous fistula malfunction. 4. Outpatient followup with Dr. Fleming. 5. Anemia secondary to end-stage renal disease. 6. Type 2 diabetes mellitus, better controlled. 7. Congestive heart failure, chronic diastolic, stable. 8. Hypertension well controlled. 9. Schizophrenia, bipolar. 10. Hypoalbuminemia, moderate. 11. Back pain, chronic. BRIEF HOSPITAL COURSE: This is a 56-year-old female patient admitted to the hospital on 12/07/2016 for hyperkalemia. During hospitalization, the patient was evaluated by Nephrology and Vascular Surgery, Dr. Fleming. She underwent regular hemodialysis. With hemodialysis, her symptoms improved and the patient has a component of noncompliance and also due to her homelessness, she missed hemodialysis several times. She has a right AV fistula, which needs to be followed by Dr. Fleming and the patient has been increased to follow up with him. Today, she deemed clinically stable and she is being sent to home in [place]. DISCHARGE EXAMINATION: GENERAL: Alert, oriented x 3. HEART: S1, S2 present. LUNGS: Anterior chest clear. ABDOMEN: Soft, nontender, no organomegaly. EXTREMITIES: No edema. DISCHARGE DISPOSITION: Home. DISCHARGE CONDITION: Stable. MEDICATIONS: Reviewed and reconciled. Please see MRAD. DIET: Renal diet. Total time spent for discharge is 31 minutes for patient education, counseling, and coordination of care. BRANDI JARA MD DR: JOANNA/mic JOB#: [id number] / [id number] JUAN ANTONIO
== END 2016-12-12 13:06 | disposition home or self-care (01) | DRG 314 ==
LOC: ER 15:19 → 2 SOUTH 20:05 → 5 SOUTH 12-09 17:10
PROVIDERS: ADMIT Internal Medicine; ATTEND Internal Medicine
PROC: 5A1D60Z (ICD-10-PCS; principal; 2016-12-09)
DX: T82.898A Other specified complication of vascular prosthetic devices, implants and grafts, initial encounter (principal); E43 Unspecified severe protein-calorie malnutrition; N18.6 End stage renal disease; I50.32 Chronic diastolic (congestive) heart failure; I13.2 Hypertensive heart and chronic kidney disease with heart failure and with stage 5 chronic kidney disease, or end stage renal disease; D63.1 Anemia in chronic kidney disease; E03.9 Hypothyroidism, unspecified; E11.22 Type 2 diabetes mellitus with diabetic chronic kidney disease; E11.42 Type 2 diabetes mellitus with diabetic polyneuropathy; E78.00 Pure hypercholesterolemia, unspecified; E78.5 Hyperlipidemia, unspecified; E87.5 Hyperkalemia; F17.210 Nicotine dependence, cigarettes, uncomplicated; F20.9 Schizophrenia, unspecified; G89.29 Other chronic pain; Z59.0 Homelessness; Z99.2 Dependence on renal dialysis; B19.20 Unspecified viral hepatitis C without hepatic coma; E21.3 Hyperparathyroidism, unspecified; N28.9 Disorder of kidney and ureter, unspecified; M25.559 Pain in unspecified hip; F14.90 Cocaine use, unspecified, uncomplicated; Z68.30 Body mass index [BMI] 30.0-30.9, adult; M19.90 Unspecified osteoarthritis, unspecified site; Z88.8 Allergy status to other drugs, medicaments and biological substances; Z90.49 Acquired absence of other specified parts of digestive tract; Z90.710 Acquired absence of both cervix and uterus
CPT/HCPCS: 36415; 80048; 80053; 82947; 84132; 85027; 85610; 93005; 93971; 99406; J0881; J1815; Q0162; 99285-25

== ENCOUNTER 2017-05-14 16:53 | Emergency (ER) | payer OTHER ==
[~2017-05-14] VITALS: Ht 163.8 cm; Wt 61.2 kg
[~2017-05-14 16:53] MED LIST changes: +Oxycodone Hcl PO; -SEVE800T PO; +SEVE800T8 PO
[2017-05-14 17:54] LABS: CREATININE 9.2 mg/dL (0.6-1.0); GFR 5.4; POTASSIUM 4.3 mmol/L (3.5-5.1)
[2017-05-14 18:01] LABS: ALBUMIN 2.8 g/dL (3.4-5.0); ALBUMIN/GLOBULIN RATIO 0.6 (1.0-1.7); MAGNESIUM 2.4 mg/dL (1.8-2.4); TOTAL BILIRUBIN 0.7 mg/dL (0.2-1.0); TOTAL PROTEIN 7.8 g/dL (6.4-8.2)
[2017-05-14 18:18] LABS: PROTHROMBIN TIME PATIENT 15.3 SEC (11.7-14.0)
[2017-05-14 18:19] LABS: INR 1.3 (0.8-1.1)
[2017-05-14] MEDS ORDERED: HEPARIN PF for SUB-Q USE 5,000 UNIT/0.5 ML VIAL. SQ SCH (19:00)
--- NOTE | 2017-05-14 19:29 | PDOC1 ---
History and Physical Date of Admission Date of Admission 05/14/17 Identification/Chief Complaint Chief Complaint chest pain Problems: Source Source: Chart review, Patient History of Present Illness History of Present Illness 56yo F, with h/o ESRD on HD, comes for chest pain x1 day. Pt was here before for chest pain on HD, h/o uncompliance for HD. she was moved [email or web address], just move back now. She was doing HD in [facility], now supposed to be MWF. she didnot get Hd TODAY. sHE started to feel some chest pain last night, sharp, moving around, no radiation, diaphoresis, sob, N/V. BP >180/110 in ER. she takes her meds, not today tho EKG ok. troponin slightly high in ER. Past Medical History Cardiovascular: HTN Pulmonary: No pertinent hx CENTRAL NERVOUS SYSTEM: Carpal Tunnel Syndrome GI: No pertinent hx Heme/Onc: Anemia NOS Renal/: Chronic renal failure Endocrine: No pertinent hx, Diabetes, Hyperparathyroidism Past Surgical History Past Surgical History: No pertinent history Family History Family History: Hypertension Social History Smoke: No ALCOHOL: none Drugs: Other Current Medications Current Medications Current Medications Medications (Trade) Dose Ordered Sig/Zayda Start Time Stop Time Status Last Admin Dose Admin Clonidine HCl (Catapres) 0.1 mg 1X ONCE 05/14/17 19:15 05/14/17 19:16 DC Allergies Allergies Allergies Coded Allergies Type Severity Reaction Last Updated Verified tramadol Adverse Reaction Intermediate VOMITING 11/07/16 Yes ROS Review of System CONSTITUTIONAL: No fever or chills EYES: No recent changes SKIN: No rash or itching CARDIOVASCULAR: No chest pain, syncope, palpitations, or edema RESPIRATORY: No SOB or cough GASTROINTESTINAL: No nausea, vomiting or abdominal pain NEUROLOGICAL: No headaches or weakness ENDOCRINE: No cold or heat intolerance GENITOURINARY: No urgency or frequency of urination MUSCULOSKELETAL: No back pain or joint pain LYMPHATICS: No enlarged lymph nodes PSYCHIATRIC: No anxiety or depression Physical Exam Physical Exam GEN.: No apparent distress. Alert and oriented. HEENT: Head is normocephalic, atraumatic NECK: Supple. LUNGS: Clear to auscultation. HEART: RRR, S1, S2 present. Peripheral pulses intact ABDOMEN: Soft, nontender. Positive bowel sounds. EXTREMITIES: Without any cyanosis. bl arm AVF, using Left one for HD. NEUROLOGIC: Normal speech, normal tone PSYCHIATRIC: Normal affect, normal mood. SKIN: No ulcerations Vitals Vitals Vital Signs Date Time Temp Pulse Resp B/P (MAP) Pulse Ox O2 Delivery O2 Flow Rate FiO2 05/14/17 18:39 64 18 185/105 (131) 98 Room Air 05/14/17 17:08 99.0 99.0 Labs Labs Laboratory Tests Test 05/14/17 17:25 Prothrombin Time 15.3 SEC (11.7-14.0) Prothromb Time International Ratio 1.3 (0.8-1.1) Activated Partial Thromboplast Time 36 SEC (24-38) Sodium Level 136 mmol/L (136-145) Potassium Level 4.3 mmol/L (3.5-5.1) Chloride Level 96 mmol/L (98-107) Carbon Dioxide Level 27 mmol/L (21-32) Anion Gap 13 (6-14) Blood Urea Nitrogen 72 mg/dL (7-20) Creatinine 9.2 mg/dL (0.6-1.0) Estimated GFR (Cockcroft-Gault) 5.4 BUN/Creatinine Ratio 8 (6-20) Glucose Level 105 mg/dL (70-99) Calcium Level 9.0 mg/dL (8.5-10.1) Magnesium Level 2.4 mg/dL (1.8-2.4) Total Bilirubin 0.7 mg/dL (0.2-1.0) Aspartate Amino Transf (AST/SGOT) 30 U/L (15-37) Alanine Aminotransferase (ALT/SGPT) 15 U/L (14-59) Alkaline Phosphatase 58 U/L (46-116) Troponin I Quantitative 0.609 ng/mL (0.000-0.055) YC-[id number]-M-Type Natriuretic Peptide > 27244 pg/mL (0-124) Total Protein 7.8 g/dL (6.4-8.2) Albumin 2.8 g/dL (3.4-5.0) Albumin/Globulin Ratio 0.6 (1.0-1.7) Laboratory Tests Test 05/14/17 17:25 Prothrombin Time 15.3 SEC (11.7-14.0) Prothromb Time International Ratio 1.3 (0.8-1.1) Activated Partial Thromboplast Time 36 SEC (24-38) Sodium Level 136 mmol/L (136-145) Potassium Level 4.3 mmol/L (3.5-5.1) Chloride Level 96 mmol/L (98-107) Carbon Dioxide Level 27 mmol/L (21-32) Anion Gap 13 (6-14) Blood Urea Nitrogen 72 mg/dL (7-20) Creatinine 9.2 mg/dL (0.6-1.0) Estimated GFR (Cockcroft-Gault) 5.4 BUN/Creatinine Ratio 8 (6-20) Glucose Level 105 mg/dL (70-99) Calcium Level 9.0 mg/dL (8.5-10.1) Magnesium Level 2.4 mg/dL (1.8-2.4) Total Bilirubin 0.7 mg/dL (0.2-1.0) Aspartate Amino Transf (AST/SGOT) 30 U/L (15-37) Alanine Aminotransferase (ALT/SGPT) 15 U/L (14-59) Alkaline Phosphatase 58 U/L (46-116) Troponin I Quantitative 0.609 ng/mL (0.000-0.055) WL-Fzq-T-Type Natriuretic Peptide > 88167 pg/mL (0-124) Total Protein 7.8 g/dL (6.4-8.2) Albumin 2.8 g/dL (3.4-5.0) Albumin/Globulin Ratio 0.6 (1.0-1.7) VTE Prophylaxis Ordered VTE Prophylaxis Devices: Yes VTE Pharmacological Prophylaxi: Yes Assessment/Plan Assessment/Plan Chest pain, 2/2 HTN urgency likely ESRD on HD 3 times a week dm2 htn urgency hld hypothyroidism schizophrenia, h/o suicidal idea hep C CHronic back pain and hip pain h/o PCP abuse h/o non compliance normacytic anemia with ESRD mild malnutrition plan: renal card consult cycle ce, tsh, lipid panel Echo cont home meds need HD dvt ppx PTOT TIFFANIE JASON MD May 14, 2017 19:29
[2017-05-14] MEDS ORDERED: ALPRAZolam 0.5 MG TABLET PO PRN (19:30)
[2017-05-14] MEDS ORDERED: ONDANSETRON PF 4 MG/2 ML VIAL. IV PRN (19:30)
[2017-05-14] MEDS ORDERED: DOCUSATE SODIUM 100 MG CAPSULE. PO PRN (19:30)
[2017-05-14] MEDS ORDERED: NON FORMULARY ITEM (Oxycodone Hcl 1 TAB) PO PRN (19:30)
[2017-05-14] MEDS ORDERED: hydrALAZINE 20 MG/ML VIAL. IVP PRN (19:30)
[2017-05-14] MEDS ORDERED: oxyCODONE/APAP 5/325 1 TAB TABLET PO PRN (19:30)
[2017-05-14] MEDS ORDERED: ACETAMINOPHEN 325 MG TABLET. PO PRN (19:30)
[2017-05-14 20:23] VITALS: BP 189/102
[2017-05-14] MEDS: cloNIDine HCL 0.1 MG TABLET PO ONE (20:23)
[2017-05-14] MEDS ORDERED: OLANZAPINE 10 MG PO SCH (21:00)
[2017-05-14] MEDS ORDERED: DIVALPROEX DELAYED RELEASE 250 MG TABLET.DR. PO SCH (21:00)
[2017-05-14] MEDS ORDERED: SIMVASTATIN 40 MG TABLET. PO SCH (21:00)
--- NOTE | 2017-05-14 23:51 | PHYS DOC ---
Past Medical History Past Medical History: Diabetes-Type II, High Cholesterol, Hypertension, Hypothyroid, Hepatitis, Renal Disease, Renal Failure, Schizophrenia Additional Past Medical Histor: HEP C, CHRONIC BACK/HIP PAIN, DRUG SEEKING BEHAVIOR, PCP, schizoaffective Past Surgical History: Cholecystectomy, Hysterectomy Additional Past Surgical Histo: R ARM Fistula, back surgery, bilateral fistulas Additional Information: 2 ppd Alcohol Use: None Drug Use: Cocaine, Phencyclidine Social History Narrative: sober 7-8 months Adult General Chief Complaint Chief Complaint: CHEST PAIN HPI HPI Patient is a 56 year old female who presents with chest pain. The patient reports onset of pain 3 hours ago while riding in the car. Pain is pressure like/tight, substernal radiating across her chest. Reports shortness of breath & nausea, denies diaphoresis. Denies fevers/chills, cough, lower extremity pain /swelling. She denies previous history of similar pain, denies cardiac stents. She does have diabetes, hypertension, ESRD on HD. She states she has been living in [facility] for 5 months & just moved back today, has been compliant with dialysis but hasn't re-established with a PCP here in [facility]. Review of Systems Review of Systems Constitutional: Denies fever or chills Eyes: Denies change in visual acuity HENT: Denies nasal congestion or sore throat Respiratory: Denies cough, reports shortness of breath Cardiovascular: Reports chest pain, denies edema GI: Reports nausea. Denies abdominal pain, vomiting, bloody stools or diarrhea : Denies dysuria or hematuria Musculoskeletal: Denies back pain or joint pain Integument: Denies rash or skin lesions Neurologic: Denies headache, focal weakness or sensory changes Current Medications Current Medications Current Medications Medications (Trade) Dose Ordered Sig/Zayda Start Time Stop Time Status Last Admin Dose Admin Acetaminophen (Tylenol) 650 mg PRN Q6HRS PRN 05/14/17 19:30 05/14/17 20:37 DC Alprazolam (Xanax) 0.5 mg PRN Q8HRS PRN 05/14/17 19:30 05/14/17 20:37 DC Amlodipine Besylate (Norvasc) 10 mg DAILY 05/15/17 09:00 05/15/17 09:00 DC Calcium Acetate (Phoslo) 667 mg TIDWMEALS 05/15/17 08:00 05/15/17 08:00 DC Carvedilol (Coreg) 12.5 mg BIDWMEALS 05/15/17 08:00 05/15/17 08:00 DC Clonidine HCl (Catapres) 0.1 mg 1X ONCE 05/14/17 19:15 05/14/17 19:16 DC 05/14/17 20:23 0.1 MG Divalproex Sodium (Depakote) 250 mg TID 05/14/17 21:00 05/14/17 21:00 DC Docusate Sodium (Colace) 100 mg PRN DAILY PRN 05/14/17 19:30 05/14/17 20:37 DC Heparin Sodium (Porcine) (Heparin Sq) 5,000 unit Q8HRS 05/14/17 19:00 05/14/17 20:37 DC Hydralazine HCl (Apresoline) 10 mg PRN Q4HRS PRN 05/14/17 19:30 05/14/17 20:37 DC Lamotrigine (LaMICtal) 25 mg DAILY 05/15/17 09:00 05/15/17 09:00 DC Levothyroxine Sodium (Synthroid) 125 mcg DAILYAC 05/15/17 07:30 05/15/17 07:30 DC Non-Formulary Medication 800 mg TIDWMEALS 05/15/17 08:00 05/15/17 08:00 DC Ondansetron HCl (Zofran) 4 mg PRN Q6HRS PRN 05/14/17 19:30 05/14/17 20:37 DC Oxycodone/ Acetaminophen (Percocet 5/325) 1 tab PRN QID PRN 05/14/17 19:30 05/14/17 20:37 DC Simvastatin (Zocor) 40 mg HS 05/14/17 21:00 05/14/17 21:00 DC Allergies Allergies Allergies Coded Allergies Type Severity Reaction Last Updated Verified tramadol Adverse Reaction Intermediate VOMITING 11/07/16 Yes Physical Exam Physical Exam Constitutional: Well developed, well nourished, no acute distress, non-toxic appearance. HENT: Normocephalic, atraumatic, bilateral external ears normal, oropharynx moist, nose normal. Eyes: PERRLA, EOMI, conjunctiva normal, no discharge. Neck: supple, no stridor. Cardiovascular: RRR, no murmurs, no edema. Lungs & Thorax: LCTAB, no wheezing, no respiratory distress. no reproducible tenderness with palpation over anterior chest wall. Abdomen: soft, nontender, nondistended. Skin: Warm, dry, no erythema, no rash. Back: No tenderness. Extremities: No tenderness, no edema. no calf tenderness or swelling. Neurologic: Alert and oriented X 3, no focal deficits noted. Psychologic: Affect normal, judgement normal, mood normal. Current Patient Data Vital Signs Vital Signs Date Time Temp Pulse Resp B/P (MAP) Pulse Ox O2 Delivery O2 Flow Rate FiO2 05/14/17 20:23 66 189/102 05/14/17 20:00 20 99 05/14/17 18:39 Room Air 05/14/17 17:08 99.0 99.0 Lab Values Laboratory Tests Test 05/14/17 17:25 Prothrombin Time 15.3 SEC (11.7-14.0) H Prothrombin Time INR 1.3 (0.8-1.1) H PTT 36 SEC (24-38) Sodium Level 136 mmol/L (136-145) Potassium Level 4.3 mmol/L (3.5-5.1) Chloride Level 96 mmol/L (98-107) L Carbon Dioxide Level 27 mmol/L (21-32) Anion Gap 13 (6-14) Blood Urea Nitrogen 72 mg/dL (7-20) H Creatinine 9.2 mg/dL (0.6-1.0) H Estimated GFR (Cockcroft-Gault) 5.4 BUN/Creatinine Ratio 8 (6-20) Glucose Level 105 mg/dL (70-99) H Calcium Level 9.0 mg/dL (8.5-10.1) Magnesium Level 2.4 mg/dL (1.8-2.4) Total Bilirubin 0.7 mg/dL (0.2-1.0) Aspartate Amino Transferase (AST) 30 U/L (15-37) Alanine Aminotransferase (ALT) 15 U/L (14-59) Alkaline Phosphatase 58 U/L (46-116) Troponin I Quantitative 0.609 ng/mL (0.000-0.055) UK-Ffb-D-Type Natriuretic Peptide > 19469 pg/mL (0-124) H Total Protein 7.8 g/dL (6.4-8.2) Albumin 2.8 g/dL (3.4-5.0) L Albumin/Globulin Ratio 0.6 (1.0-1.7) L Laboratory Tests 05/14/17 17:25 EKG EKG interpreted by me: Sinus rhythm rate 68, RBBB & LAFB, no ST elevation, no ectopy.[] Radiology/Procedures Radiology/Procedures Chest x-ray, portable: Interpreted by me: Cardiomegaly, no focal infiltrate, no pneumothorax[] Course & Med Decision Making Course & Med Decision Making Pertinent Labs and Imaging studies reviewed. (See chart for details) The patient presents with chest pain. EMS administered aspirin and nitroglycerin and she was asymptomatic at time of my evaluation. Obtained labs, EKG, chest x-ray. Noted to have elevated troponin which is common during previous admission. No STEMI on EKG. Recommended admission to the hospital for further evaluation and treatment. She agrees with plan of care. Discussed with Dr. Yarbrough who agrees to consult, no need to give heparin at this time, likely elevated secondary to ESRD/CHF. We'll follow serial troponin and EKG. Discussed with Dr. Larose who agrees to admit to inpatient status. The patient was being held in the emergency department pending availability of an inpatient bed. She decided she wanted to leave to go home. I talked at length with the patient with the nurse present in the room. Discussed potentially serious nature of findings, concern for acute myocardial infarction and need for urgent dialysis. Patient is alert and oriented 3, not suicidal, voices understanding of reasons for admission. Discussed risks of leaving which include worsening condition, undiagnosed condition, possibly . She voices understanding and still prefers to leave AGAINST MEDICAL ADVICE. She does not have a good plan for follow-up and I encouraged her to return here at any time should she wish to receive further treatment. She is leaving AGAINST MEDICAL ADVICE. [] Dragon Disclaimer Dragon Disclaimer This electronic medical record was generated, in whole or in part, using a voice recognition dictation system. Departure Departure Impression: Primary Impression: Left against medical advice Additional Impressions: Chest pain Elevated troponin Elevated brain natriuretic peptide (BNP) level End stage renal disease Essential hypertension Disposition: AGAINST MEDICAL ADVICE Condition: GUARDED Referrals: NO PCP (PCP) Problem Qualifiers MIREYA WATERMAN MD May 14, 2017 23:51
--- NOTE | 2017-05-15 06:55 | EKG ---
[facility] [address] [place] [address] Test Date: 2017-05-14 Test Time: 17:02:08 Pat Name: BUDDY GUERRA Department: Room: Gender: F Kiss Mixer: : [id number] Requested By: MIREYA WATERMAN Order Number: [id number] Reading MD: Measurements Intervals [place] Rate: 68 P: 67 DC: 154 QRS: -45 QRSD: 148 T: -60 QT: 424 QTc: 451 Interpretive Statements SINUS RHYTHM LEFT ATRIAL ABNORMALITY ABNORMAL LEFT AXIS DEVIATION LEFT ANTERIOR FASCICULAR BLOCK RIGHT BUNDLE BRANCH BLOCK BIFASCICULAR BLOCK RI6.01 Unconfirmed report No previous ECG available for comparison
[2017-05-15] MEDS ORDERED: LEVOTHYROXINE 125 MCG TABLET PO SCH (07:30)
[2017-05-15] MEDS ORDERED: SEVELAMER HCL 800 MG PO SCH (08:00)
[2017-05-15] MEDS ORDERED: CALCIUM ACETATE 667 MG CAPSULE PO SCH (08:00)
[2017-05-15] MEDS ORDERED: CARVEDILOL 12.5 MG TABLET. PO SCH (08:00)
--- NOTE | 2017-05-15 08:55 | RAD ---
CHEST AP ONLY Clinical Indication: Chest pain Comparison: Chest radiograph dated 10/30/2016 Findings: Stable lung volume. No focal consolidations. Stable pulmonary vasculature. No pleural effusion or pneumothorax. Stable marked cardiomegaly. The great vessels of the arch is stable. No acute osseous abnormality. IMPRESSION: 1. No focal consolidation. 2. Stable marked cardiomegaly.
[2017-05-15] MEDS ORDERED: NON FORMULARY ITEM (Gabapentin 300 MG) PO SCH (09:00)
[2017-05-15] MEDS ORDERED: lamoTRIgine 25 MG TABLET. PO SCH (09:00)
[2017-05-15] MEDS ORDERED: amLODIPine BESYLATE 10 MG TABLET PO SCH (09:00)
[2017-05-15] MEDS ORDERED: SERTRALINE HCL 200 MG PO SCH (09:00)
[2017-05-15] MEDS ORDERED: RISPERIDONE 4 MG PO SCH (09:00)
== END 2017-05-14 20:37 | disposition left against medical advice (07) ==
LOC: ER 16:53
DX: R07.89 Other chest pain (principal); R06.02 Shortness of breath; R11.0 Nausea; R79.89 Other specified abnormal findings of blood chemistry; E11.22 Type 2 diabetes mellitus with diabetic chronic kidney disease; I12.0 Hypertensive chronic kidney disease with stage 5 chronic kidney disease or end stage renal disease; N18.6 End stage renal disease; E21.3 Hyperparathyroidism, unspecified; E78.00 Pure hypercholesterolemia, unspecified; E03.9 Hypothyroidism, unspecified; F20.9 Schizophrenia, unspecified; G89.29 Other chronic pain; F17.200 Nicotine dependence, unspecified, uncomplicated; Z99.2 Dependence on renal dialysis; Z86.19 Personal history of other infectious and parasitic diseases; Z88.5 Allergy status to narcotic agent
CPT/HCPCS: 36415; 71010; 80053; 83735; 83880; 84484; 85610; 85730; 93005; 99285-25

== ENCOUNTER 2017-06-02 00:42 | Emergency (ER) | payer OTHER ==
[~2017-06-02] VITALS: Ht 162.6 cm; Wt 59.9 kg
[2017-06-02] MEDS ORDERED: cloNIDine HCL 0.1 MG TABLET PO ONE (01:15)
[2017-06-02 01:42] LABS: BASO % 1 % (0-3); EOS % 1 % (0-3); HEMATOCRIT 32.1 % (36.0-47.0); HEMOGLOBIN 10.6 g/dL (12.0-15.5); LYMPH # 1.1 x10^3/uL (1.0-4.8); LYMPH % 23 % (24-48); MEAN CORPUSCULAR HEMOGLOBIN 31 pg (25-35); MEAN CORPUSCULAR HGB CONC 33 g/dL (31-37); MEAN CORPUSCULAR VOLUME 94 fL (79-100); MONO % 16 % (0-9); NEUT % 60 % (31-73); PLATELET COUNT 92 x10^3/uL (140-400); RED BLOOD COUNT 3.42 x10^6/uL (3.50-5.40); RED CELL DISTRIBUTION WIDTH 21.2 % (11.5-14.5); WHITE BLOOD COUNT 4.9 x10^3/uL (4.0-11.0)
--- NOTE | 2017-06-02 01:46 | RAD ---
CT head without contrast TECHNIQUE: [address] imaging skull base to vertex. HISTORY: Headache. FINDINGS: No intracranial hemorrhage, mass, hydrocephalus, extra-axial fluid collections or infarction. There is mild generalized brain atrophy. No acute ischemic changes. There are dural calcifications towards the vertex. Orbits, paranasal sinuses, mastoids and bones are unremarkable. IMPRESSION: No acute intracranial CT abnormality. Exposure: One or more of the following individualized dose reduction techniques were utilized for this examination: 1. Automated exposure control 2. Adjustment of the mA and/or kV according to patient size 3. Use of iterative reconstruction technique Electronically signed by: Ramesh Farr MD (06/02/2017 1:42 AM) [facility]
--- NOTE | 2017-06-02 01:46 | PHYS DOC ---
Past Medical History Past Medical History: Diabetes-Type II, High Cholesterol, Hypertension, Hypothyroid, Hepatitis, Renal Disease, Renal Failure, Schizophrenia Additional Past Medical Histor: HEP C, CHRONIC BACK/HIP PAIN, DRUG SEEKING BEHAVIOR, PCP, schizoaffective Past Surgical History: Cholecystectomy, Hysterectomy Additional Past Surgical Histo: R ARM Fistula, back surgery, bilateral fistulas Alcohol Use: None Drug Use: Cocaine, Phencyclidine Adult General Chief Complaint Chief Complaint: HYPERTENSION HPI HPI Patient is a 56 year old F who presents with hypertension. Patient states that she just moved here from [place] 2 weeks ago and is unable to refill her blood pressure medication. Patient states she did have an elevated blood pressures for the past week and tonight she started having a headache therefore came the emergency room. Patient is currently on dialysis. EMS got blood pressures in the 130s and in the room the patient is a bp pressure of 160/114. Patient states she has a slight headache. Patient denies any chest pain or shortness of breath. Patient states her fistula on her right arm is felt in her knee fistulas her left arm. Patient denies any nausea/vomiting/diarrhea. Patient dialyzed yesterday and her normal schedule is Sunday/Sunday/Sunday. After performing a chart review the patient's been living in [place] since 2016 is seen regularly at [facility]. Patient has a history of elevated blood pressures per multiple previous visits. Review of Systems Review of Systems GEN: Denies fevers, chills, sweats HEENT: Denies blurred vision, sore throat CV: Denies chest pain RESP: Denies shortness of air, cough GI: Denies n/v/d NEURO: Headache MSK: Denies weakness, joint pain/swelling Current Medications Current Medications Current Medications Medications (Trade) Dose Ordered Sig/Zayda Start Time Stop Time Status Last Admin Dose Admin Clonidine HCl (Catapres) 0.1 mg 1X ONCE 06/02/17 01:15 06/02/17 01:16 DC 06/02/17 01:27 0.1 MG Allergies Allergies Allergies Coded Allergies Type Severity Reaction Last Updated Verified tramadol Adverse Reaction Intermediate VOMITING 11/07/16 Yes Physical Exam Physical Exam GEN.: No apparent distress. Alert and oriented. HEENT: Head is normocephalic, atraumatic NECK: Supple. LUNGS: CTAB. HEART: RRR, 5/6 LEANA. Peripheral pulses intact ABDOMEN: Soft, nontender. Positive bowel sounds. EXTREMITIES: Without any cyanosis. 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 SKIN: No ulcerations Current Patient Data Vital Signs Vital Signs Date Time Temp Pulse Resp B/P (MAP) Pulse Ox O2 Delivery O2 Flow Rate FiO2 06/02/17 01:27 96 162/114 06/02/17 00:55 99.0 16 97 Room Air 99.0 Lab Values Laboratory Tests Test 06/02/17 01:34 White Blood Count 4.9 x10^3/uL (4.0-11.0) Red Blood Count 3.42 x10^6/uL (3.50-5.40) L Hemoglobin 10.6 g/dL (12.0-15.5) L Hematocrit 32.1 % (36.0-47.0) L Mean Corpuscular Volume 94 fL (79-100) Mean Corpuscular Hemoglobin 31 pg (25-35) Mean Corpuscular Hemoglobin Concent 33 g/dL (31-37) Red Cell Distribution Width 21.2 % (11.5-14.5) H Platelet Count 92 x10^3/uL (140-400) L Neutrophils (%) (Auto) 60 % (31-73) Lymphocytes (%) (Auto) 23 % (24-48) L Monocytes (%) (Auto) 16 % (0-9) H Eosinophils (%) (Auto) 1 % (0-3) Basophils (%) (Auto) 1 % (0-3) Neutrophils # (Auto) 2.9 x10^3uL (1.8-7.7) Lymphocytes # (Auto) 1.1 x10^3/uL (1.0-4.8) Monocytes # (Auto) 0.8 x10^3/uL (0.0-1.1) Eosinophils # (Auto) 0.1 x10^3/uL (0.0-0.7) Basophils # (Auto) 0.0 x10^3/uL (0.0-0.2) Platelet Estimate Pending Sodium Level 138 mmol/L (136-145) Potassium Level 4.2 mmol/L (3.5-5.1) Chloride Level 99 mmol/L (98-107) Carbon Dioxide Level 30 mmol/L (21-32) Anion Gap 9 (6-14) Blood Urea Nitrogen 30 mg/dL (7-20) H Creatinine 5.0 mg/dL (0.6-1.0) H Estimated GFR (Cockcroft-Gault) 10.9 Glucose Level 134 mg/dL (70-99) H Calcium Level 8.4 mg/dL (8.5-10.1) L Laboratory Tests 06/02/17 01:34 Laboratory Tests 06/02/17 01:34 EKG EKG [] Radiology/Procedures Radiology/Procedures CT scan the head NAD[] Course & Med Decision Making Course & Med Decision Making Pertinent Labs and Imaging studies reviewed. (See chart for details) ED course: Patient was seen and examined emergency room CBC, BMP, CT scan of head were ordered 0241: Repeat blood pressure is 149/116 a she is asymptomatic sitting up in bed eating in no acute distress. Patient stable for discharge. Recommended she follow up with her PCP to further evaluate and manage her blood pressure. MDM: After reviewing the chart, CC/HPI/PMH, physical exam, [lab results], [ radiological results], I do not believe the patient is having hypertensive emergency warranting further workup and/or admission to the hospital at this time. I believe patient has chronic elevated hypertension and the patient needs to follow-up with PCP for better management of her blood pressure. Patient is stable for discharge. Additional verbal discharge instructions were provided to the patient and that if symptoms get worse or any new symptoms arise that are worrisome to the patient she is to return to the emergency room immediately [] Dragon Disclaimer Dragon Disclaimer This electronic medical record was generated, in whole or in part, using a voice recognition dictation system. Departure Departure Impression: Primary Impression: Hypertension Disposition: HOME, SELF-CARE Condition: IMPROVED Referrals: NO PCP (PCP) Patient Instructions: Hypertension Additional Instructions: Please follow-up with your family physician in the next one to 2 days and return if symptoms increase REX RYAN DO Jun 02, 2017 01:46
[2017-06-02 02:10] LABS: CALCIUM 8.4 mg/dL (8.5-10.1); GFR 10.9; POTASSIUM 4.2 mmol/L (3.5-5.1)
[2017-06-02 02:30] VITALS: BP 149/116
[2017-06-02 04:20] LABS: ANISOCYTOSIS MOD; PLT ESTIMATE DECREASED (ADEQUATE); TARGET CELLS OCC; TEAR DROP CELLS OCC
[2017-06-11] MEDS ORDERED: ASCO500T3 PO (14:41)
[2017-06-11] MEDS ORDERED: PRAV40TA2 PO (14:41)
[2017-06-11] MEDS ORDERED: ZIPR80CA2 PO (14:41)
[2017-06-11] MEDS ORDERED: HYDR-971 PO (14:41)
[2017-06-11] MEDS ORDERED: HYDR25TA PO (14:41)
[2017-06-11] MEDS ORDERED: DOCU100C20 PO (14:41)
[2017-06-11] MEDS ORDERED: CARV6.252 PO (14:41)
[2017-06-11] MEDS ORDERED: MULT1TAB52 PO (14:41)
[2017-06-11] MEDS ORDERED: BUDE10.2 IH (14:41)
[2017-06-11] MEDS ORDERED: ROPI1TAB PO (14:41)
[2017-06-11] MEDS ORDERED: FURO20TA3 PO (14:41)
[2017-06-11] MEDS ORDERED: LURA40TA PO (14:41)
[2017-06-11] MEDS ORDERED: MINO2.5T12 PO (14:41)
[2017-06-11] MEDS ORDERED: PANT40TA3 PO (14:41)
[2017-06-11] MEDS ORDERED: TIOT18CA IH (14:41)
[2017-06-11] MEDS ORDERED: ASPI-630 PO (14:41)
== END 2017-06-02 03:02 | disposition home or self-care (01) ==
LOC: ER 00:42
DX: I12.9 Hypertensive chronic kidney disease with stage 1 through stage 4 chronic kidney disease, or unspecified chronic kidney disease (principal); E11.22 Type 2 diabetes mellitus with diabetic chronic kidney disease; N18.9 Chronic kidney disease, unspecified; E78.00 Pure hypercholesterolemia, unspecified; E03.9 Hypothyroidism, unspecified; F20.9 Schizophrenia, unspecified; G89.29 Other chronic pain; Z99.2 Dependence on renal dialysis; Z86.19 Personal history of other infectious and parasitic diseases; Z90.710 Acquired absence of both cervix and uterus; Z90.49 Acquired absence of other specified parts of digestive tract; Z88.5 Allergy status to narcotic agent
CPT/HCPCS: 36415; 70450; 80048; 85025; 99285-25

== ENCOUNTER 2017-06-25 16:22 | Emergency (ER) | payer OTHER ==
[~2017-06-25] VITALS: Ht 165.1 cm; Wt 58.5 kg
[~2017-06-25 16:22] MED LIST changes: +ASCO500T3 PO; +ASPI-630 PO; +BUDE10.2 IH; +CARV6.252 PO; +DOCU100C20 PO; +FURO20TA3 PO; +HYDR-971 PO; +HYDR25TA PO; +LURA40TA PO; +MINO2.5T12 PO; +MULT1TAB52 PO; +PANT40TA3 PO; +PRAV40TA2 PO; +ROPI1TAB PO; +TIOT18CA IH; +ZIPR80CA2 PO
[2017-06-25] MEDS ORDERED: fentaNYL PF VIAL 100 MCG/2 ML VIAL IV ONE (20:30)
[2017-06-25 20:39] VITALS: BP 153/89
--- NOTE | 2017-06-25 21:12 | PHYS DOC ---
Past Medical History Past Medical History: Anemia, CHF, Diabetes-Type II, GI Bleed, High Cholesterol , Heart Disease, Hypertension, Hypothyroid, Hepatitis, Liver Disease, Pneumonia , Renal Disease, Renal Failure, Schizophrenia, Other Additional Past Medical Histor: HEP C, CHRONIC BACK/HIP PAIN, DRUG SEEKING BEHAVIOR, PCP, schizoaffective, Past Surgical History: Cholecystectomy, Hysterectomy Additional Past Surgical Histo: R ARM Fistula AND REMOVAL, back surgery, LEFT FISTULA Additional Information: 0.5 TO 1 PPD Alcohol Use: None Drug Use: Cocaine, Phencyclidine Adult General Chief Complaint Chief Complaint: MULTIPLE COMPLAINTS HPI HPI 56-year-old female with an extensive medical history including schizophrenia, now presents the emergency department with multiple vague complaints but she finally decided that she is here because of left hip soreness. Patient states she has fallen previously but does not have syncope or near syncope. She is not fallen recently but she is concerned about her hip soreness she came to the emergency department. Patient denies chest pain or shortness of breath. She has no focal neurologic deficit and denies abdominal pain. She has no other complaints. Patient states she decided not to go to dialysis today so she could come to the emergency department to get checked out. Review of Systems Review of Systems Constitutional: Denies fever or chills [] Eyes: Denies change in visual acuity, redness, or eye pain [] HENT: Denies nasal congestion or sore throat [] Respiratory: Denies cough or shortness of breath [] Cardiovascular: No additional information not addressed in HPI [] GI: Denies abdominal pain, nausea, vomiting, bloody stools or diarrhea [] : Denies dysuria or hematuria [] Musculoskeletal: Denies back pain or joint pain [] Integument: Denies rash or skin lesions [] Neurologic: Denies headache, focal weakness or sensory changes [] Endocrine: Denies polyuria or polydipsia [] All other systems were reviewed and found to be within normal limits, except as documented in this note. Current Medications Current Medications Current Medications Medications (Trade) Dose Ordered Sig/Zayda Start Time Stop Time Status Last Admin Dose Admin Fentanyl Citrate (Fentanyl 2ml Vial) 25 mcg 1X ONCE 06/25/17 20:30 06/25/17 20:32 DC 06/25/17 20:38 25 MCG Allergies Allergies Allergies Coded Allergies Type Severity Reaction Last Updated Verified tramadol Adverse Reaction Intermediate VOMITING 11/07/16 Yes Physical Exam Physical Exam [place] weak appearing 56-year-old female who appears much older than her stated age in no acute distress. Benign exam except minimal soft tissue tenderness over the point of the left hip. No ecchymosis swelling or hematoma. Normal painless range of motion of the left lower extremity including hip and knee as well as ankle joints. Nontender stable pelvis. Remainder of exam is benign Constitutional: Well developed, well nourished, no acute distress, non-toxic appearance. [] HENT: Normocephalic, atraumatic, bilateral external ears normal, oropharynx moist, no oral exudates, nose normal. [] Eyes: PERRLA, EOMI, conjunctiva normal, no discharge. [] Neck: Normal range of motion, no tenderness, supple, no stridor. [] Cardiovascular:Heart rate regular rhythm, no murmur [] Lungs & Thorax: Bilateral breath sounds clear to auscultation [] Abdomen: Bowel sounds normal, soft, no tenderness, no masses, no pulsatile masses. [] Skin: Warm, dry, no erythema, no rash. [] Back: No tenderness, no CVA tenderness. [] Extremities: No tenderness, no cyanosis, no clubbing, ROM intact, no edema. [] Neurologic: Alert and oriented X 3, normal motor function, normal sensory function, no focal deficits noted. [] Psychologic: Affect normal, judgement normal, mood normal. [] Current Patient Data Vital Signs Vital Signs Date Time Temp Pulse Resp B/P (MAP) Pulse Ox O2 Delivery O2 Flow Rate FiO2 06/25/17 20:39 88 23 153/89 (110) 99 Room Air 06/25/17 16:23 98.3 98.3 Lab Values Laboratory Tests Test 06/25/17 19:42 06/25/17 19:45 POC Troponin I 0.04 ng/ml (<0.08) POC Hemoglobin 10.5 g/dL (12-15) L POC Hematocrit 31 % (36-40) L POC Sodium 135 mmol/L (135-145) POC Potassium 5.0 mmol/L (3.5-5.0) POC Chloride 98 mmol/L (98-110) POC Total CO2 25 mmol/L (23-32) Anion Gap 18 mmol/L (6-14) H POC Blood Urea Nitrogen 72 mg/dL (8-26) H POC Creatinine 8.3 mg/dL (0.5-1.4) H Glucose Level 101 mg/dL (70-99) H POC Ionized Calcium (Ashleigh) 1.13 mmol/L (1.13-1.32) Laboratory Tests 06/25/17 19:45 EKG EKG [] Radiology/Procedures Radiology/Procedures [] Course & Med Decision Making Course & Med Decision Making Pertinent Labs and Imaging studies reviewed. (See chart for details) Signs and symptoms consistent with manifestations of schizophrenia with mild paranoia about medical issues. Patient's workup is unremarkable. She has trace left soft tissue tenderness of the hip area but x-rays of the hip and pelvis are benign and patient has no evidence of ecchymosis hematoma or acute injury. No further workup or treatment indicated. Patient's potassium is benign she's were to follow up for dialysis tomorrow. She agrees with outpatient follow-up and strict return precautions given [] Dragon Disclaimer Dragon Disclaimer This electronic medical record was generated, in whole or in part, using a voice recognition dictation system. Departure Departure Impression: Primary Impression: Left hip pain Additional Impression: Noncompliance with renal dialysis Disposition: 01 HOME, SELF-CARE Condition: STABLE Referrals: NO PCP (PCP) Additional Instructions: It is not clear what is causing her left hip soreness today but your x-ray showed no fracture or bony abnormality. Take Tylenol as needed for discomfort and follow-up with your doctor in the morning for reevaluation and to reschedule the dialysis session that you did not attend today. Problem Qualifiers ROLA ABARCA MD Jun 25, 2017 21:12
--- NOTE | 2017-06-26 06:58 | EKG ---
[facility] [address] [place] [address] Test Date: 2017-06-25 Test Time: 16:34:45 Pat Name: BUDDY GUERRA Department: Room: Gender: F Is Technician: [id number] : 1960 Requested By: ROLA ABARCA Order Number: [id number] Reading MD: Jayjay Leigh MD Measurements Intervals [place] Rate: 58 P: 45 MT: 178 QRS: -44 QRSD: 146 T: 161 QT: 486 QTc: 481 Interpretive Statements SINUS RHYTHM ABNORMAL LEFT AXIS DEVIATION LEFT ANTERIOR FASCICULAR BLOCK RIGHT BUNDLE BRANCH BLOCK BIFASCICULAR BLOCK QRS(T) CONTOUR ABNORMALITY CONSISTENT WITH SEPTAL INFARCT Electronically Signed On 06-26-2017 15:14:56 STORE ASSOCIATE by Jayjay Leigh MD
--- NOTE | 2017-06-26 08:18 | RAD ---
Pelvis with left hip, 3 views, 06/25/2017: History: Hip pain No fracture or dislocation is identified. No destructive bony lesion is seen. The hip joint spaces are well-maintained. Moderate scattered vascular calcifications are present. Surgical clips are projected over the iliac regions bilaterally. IMPRESSION: No acute bony abnormality is detected.
== END 2017-06-25 21:20 | disposition home or self-care (01) ==
LOC: ER 16:22
DX: M25.552 Pain in left hip (principal); I13.0 Hypertensive heart and chronic kidney disease with heart failure and stage 1 through stage 4 chronic kidney disease, or unspecified chronic kidney disease; I50.9 Heart failure, unspecified; N18.9 Chronic kidney disease, unspecified; E11.22 Type 2 diabetes mellitus with diabetic chronic kidney disease; E78.00 Pure hypercholesterolemia, unspecified; E03.9 Hypothyroidism, unspecified; F20.9 Schizophrenia, unspecified; F17.220 Nicotine dependence, chewing tobacco, uncomplicated; F14.10 Cocaine abuse, uncomplicated; F16.10 Hallucinogen abuse, uncomplicated; Z91.15 Patient's noncompliance with renal dialysis; Z88.5 Allergy status to narcotic agent; Z99.2 Dependence on renal dialysis; Z87.01 Personal history of pneumonia (recurrent); Z90.49 Acquired absence of other specified parts of digestive tract; Z90.710 Acquired absence of both cervix and uterus
CPT/HCPCS: 73502; 80047; 84484; 85014; 85018; 93005; 96374; 99284; J3010; 36415

== ENCOUNTER 2017-06-26 15:59 | Emergency (ER) | payer OTHER ==
[~2017-06-26] VITALS: Ht 162.6 cm; Wt 58.5 kg
--- NOTE | 2017-06-26 16:21 | PHYS DOC ---
Past Medical History Past Medical History: Anemia, CHF, Diabetes-Type II, GI Bleed, High Cholesterol , Heart Disease, Hypertension, Hypothyroid, Hepatitis, Liver Disease, Pneumonia , Renal Disease, Renal Failure, Schizophrenia, Other Additional Past Medical Histor: HEP C, CHRONIC BACK/HIP PAIN, DRUG SEEKING BEHAVIOR, PCP, schizoaffective, Past Surgical History: Cholecystectomy, Hysterectomy Additional Past Surgical Histo: R ARM Fistula AND REMOVAL, back surgery, LEFT FISTULA Alcohol Use: None Drug Use: Cocaine, Phencyclidine Adult General Chief Complaint Chief Complaint: WEAKNESS/GENERALIZED HPI HPI Patient is a 56 year old F who presents with generalized weakness and wants to be dialyzed. Patient states she missed her dialysis yesterday because she had some important to do therefore today had increased generalized weakness and wants to be dialyzed. Patient has chronic pain and describes she has pain in her back and hips no recent trauma. Patient denies any fevers. Patient denies any chest pain returns of breath. Patient has no other complaints. Review of Systems Review of Systems GEN: Generalized weakness HEENT: Denies blurred vision, sore throat CV: Denies chest pain RESP: Denies shortness of air, cough GI: Denies n/v/d NEURO: Denies confusion, dizziness MSK: Chronic lower back pain and hip pain All other systems were reviewed and found to be within normal limits, except as documented in this note. Current Medications Current Medications Current Medications Medications (Trade) Dose Ordered Sig/Zayda Start Time Stop Time Status Last Admin Dose Admin Acetaminophen (Tylenol) 1,000 mg 1X ONCE 06/26/17 17:15 06/26/17 17:17 DC Calcium Gluconate (Calcium Gluconate) 1,000 mg 1X ONCE 06/26/17 18:15 06/26/17 18:16 DC 06/26/17 18:38 1,000 MG Dextrose (Dextrose 50%-Water Syringe) 25 gm 1X ONCE 06/26/17 18:15 06/26/17 18:16 DC 06/26/17 18:37 25 GM Insulin Human Regular (NovoLIN R VIAL) 10 unit 1X ONCE 06/26/17 18:15 06/26/17 18:16 DC 06/26/17 18:40 10 UNIT Sodium Bicarbonate 50 meq/Dextrose 1,050 ml @ 125 mls/hr 1X ONCE 06/26/17 18:15 06/26/17 19:35 DC Sodium Polystyrene Sulfonate (Kayexalate) 15 gm 1X ONCE 06/26/17 18:15 06/26/17 18:16 DC 06/26/17 18:37 15 GM Sodium Bicarbonate 50 meq 1X ONCE 06/26/17 18:45 06/26/17 18:46 DC 06/26/17 18:50 50 MEQ Allergies Allergies Allergies Coded Allergies Type Severity Reaction Last Updated Verified tramadol Adverse Reaction Intermediate VOMITING 11/07/16 Yes Physical Exam Physical Exam GEN.: No apparent distress. Alert and oriented. HEENT: Head is normocephalic, atraumatic, scleral icterus NECK: Supple. LUNGS: CTAB. HEART: RRR, S1, S2 present. Peripheral pulses intact ABDOMEN: Soft, nontender. Positive bowel sounds. EXTREMITIES: Without any cyanosis. NEUROLOGIC: Normal speech, normal tone PSYCHIATRIC: Normal affect, normal mood. SKIN: No ulcerations Current Patient Data Vital Signs Vital Signs Date Time Temp Pulse Resp B/P (MAP) Pulse Ox O2 Delivery O2 Flow Rate FiO2 06/26/17 19:10 63 20 06/26/17 16:04 98.2 164/77 (106) 98 Room Air 98.2 Lab Values Laboratory Tests Test 06/26/17 16:18 White Blood Count 4.8 x10^3/uL (4.0-11.0) Red Blood Count 3.05 x10^6/uL (3.50-5.40) L Hemoglobin 9.6 g/dL (12.0-15.5) L Hematocrit 28.1 % (36.0-47.0) L Mean Corpuscular Volume 92 fL (79-100) Mean Corpuscular Hemoglobin 31 pg (25-35) Mean Corpuscular Hemoglobin Concent 34 g/dL (31-37) Red Cell Distribution Width 16.9 % (11.5-14.5) H Platelet Count 104 x10^3/uL (140-400) L Neutrophils (%) (Auto) 52 % (31-73) Lymphocytes (%) (Auto) 34 % (24-48) Monocytes (%) (Auto) 11 % (0-9) H Eosinophils (%) (Auto) 2 % (0-3) Basophils (%) (Auto) 1 % (0-3) Neutrophils # (Auto) 2.5 x10^3uL (1.8-7.7) Lymphocytes # (Auto) 1.6 x10^3/uL (1.0-4.8) Monocytes # (Auto) 0.5 x10^3/uL (0.0-1.1) Eosinophils # (Auto) 0.1 x10^3/uL (0.0-0.7) Basophils # (Auto) 0.1 x10^3/uL (0.0-0.2) Sodium Level 135 mmol/L (136-145) L Potassium Level 5.9 mmol/L (3.5-5.1) H Chloride Level 97 mmol/L (98-107) L Carbon Dioxide Level 24 mmol/L (21-32) Anion Gap 14 (6-14) Blood Urea Nitrogen 96 mg/dL (7-20) H Creatinine 10.1 mg/dL (0.6-1.0) H Estimated GFR (Cockcroft-Gault) 4.8 BUN/Creatinine Ratio 10 (6-20) Glucose Level 132 mg/dL (70-99) H Calcium Level 8.9 mg/dL (8.5-10.1) Total Bilirubin 0.9 mg/dL (0.2-1.0) Aspartate Amino Transferase (AST) 31 U/L (15-37) Alanine Aminotransferase (ALT) 11 U/L (14-59) L Alkaline Phosphatase 67 U/L (46-116) Total Protein 8.1 g/dL (6.4-8.2) Albumin 2.7 g/dL (3.4-5.0) L Albumin/Globulin Ratio 0.5 (1.0-1.7) L Laboratory Tests 06/26/17 16:18 Laboratory Tests 06/26/17 16:18 EKG EKG 1634: EKG shows normal sinus rhythm rate of 88 no STEMI[] Radiology/Procedures Radiology/Procedures [] Course & Med Decision Making Course & Med Decision Making Pertinent Labs and Imaging studies reviewed. (See chart for details) ED course: Patient was seen and examined emergency room CBC, BMP, EKG were ordered 1811: Discussed CC/HP/PMH with Dr. Elizondo and recommends reducing the potassium with medication and Kayexalate and discharge home and have her follow-up tomorrow for dialysis, he did not feel the patient needed emergent dialysis tonight. 1820: Updated patient on plan to discharge and strongly urged the patient to follow-up tomorrow for dialysis. MDM: After reviewing the chart, CC/HPI/PMH, physical exam, [lab results], I do not believe the patient needs emergent dialysis even though the patient's potassium is 5.9 with no EKG changes. Patient was given calcium gluconate, sodium bicarbonate, 10 units insulin, an amp of D50, and Kayexalate prior to discharge. Patient was comfortable going home. Strongly urged the patient to follow-up tomorrow to have her dialysis completed. Additional verbal discharge instructions were provided to the patient and that if symptoms get worse or any new symptoms arise that are worrisome to the patient she is to return to the emergency room immediately [] Dragon Disclaimer Dragon Disclaimer This electronic medical record was generated, in whole or in part, using a voice recognition dictation system. Departure Departure Impression: Primary Impression: Hyperkalemia Additional Impression: ESRD on dialysis Disposition: HOME, SELF-CARE Condition: STABLE Referrals: NO PCP (PCP) Patient Instructions: Hyperkalemia Additional Instructions: Please go dialysis tomorrow and return if symptoms increase Problem Qualifiers REX RYAN DO Jun 26, 2017 16:20
[2017-06-26 16:40] LABS: BASO # 0.1 x10^3/uL (0.0-0.2); BASO % 1 % (0-3); EOS % 2 % (0-3); HEMATOCRIT 28.1 % (36.0-47.0); HEMOGLOBIN 9.6 g/dL (12.0-15.5); LYMPH # 1.6 x10^3/uL (1.0-4.8); LYMPH % 34 % (24-48); MEAN CORPUSCULAR HEMOGLOBIN 31 pg (25-35); MEAN CORPUSCULAR HGB CONC 34 g/dL (31-37); MEAN CORPUSCULAR VOLUME 92 fL (79-100); MONO % 11 % (0-9); NEUT % 52 % (31-73); PLATELET COUNT 104 x10^3/uL (140-400); RED BLOOD COUNT 3.05 x10^6/uL (3.50-5.40); RED CELL DISTRIBUTION WIDTH 16.9 % (11.5-14.5); WHITE BLOOD COUNT 4.8 x10^3/uL (4.0-11.0)
[2017-06-26 16:43] LABS: CALCIUM 8.9 mg/dL (8.5-10.1); CREATININE 10.1 mg/dL (0.6-1.0); GFR 4.8; POTASSIUM 5.9 mmol/L (3.5-5.1)
[2017-06-26 16:50] LABS: ALBUMIN 2.7 g/dL (3.4-5.0); ALBUMIN/GLOBULIN RATIO 0.5 (1.0-1.7); TOTAL BILIRUBIN 0.9 mg/dL (0.2-1.0); TOTAL PROTEIN 8.1 g/dL (6.4-8.2)
[2017-06-26] MEDS ORDERED: ACETAMINOPHEN 500 MG TABLET PO ONE (17:15)
[2017-06-26] MEDS ORDERED: SODIUM BICARBONATE VIAL 50 MEQ in IV DEXTROSE 5% 1,000 ML IV ONE (18:15)
[2017-06-26] MEDS ORDERED: CALCIUM GLUCONATE 1,000 MG/10 ML VIAL. IVP ONE (18:15)
[2017-06-26] MEDS ORDERED: INSULIN REGULAR 100 UNIT/ML 10ML VIAL. IV ONE (18:15)
[2017-06-26] MEDS ORDERED: SODIUM POLYSTYRENE SULFONATE 15 GM/60 ML ORAL.SUSP. PO ONE (18:15)
[2017-06-26] MEDS ORDERED: DEXTROSE 50% 25 GM / 50ML DISP.SYRIN. IV ONE (18:15)
[2017-06-26] MEDS ORDERED: SODIUM BICARB ADULT 8.4% 50 MEQ/50 ML DISP.SYRIN. IV ONE (18:45)
[2017-06-26 19:10] VITALS: BP 164/77
--- NOTE | 2017-06-27 08:51 | EKG ---
[facility] [address] [place] [address] Test Date: 2017-06-26 Test Time: 16:32:05 Pat Name: BUDDY GUERRA Department: Room: Gender: F Trichologist: : 1960 Requested By: REX RYAN Order Number: [id number] Reading MD: Francis Gray Measurements Intervals [place] Rate: 88 P: 37 MI: 196 QRS: -58 QRSD: 152 T: 86 QT: 424 QTc: 517 Interpretive Statements SINUS RHYTHM LEFT ATRIAL ABNORMALITY ABNORMAL LEFT AXIS DEVIATION LEFT ANTERIOR FASCICULAR BLOCK RIGHT BUNDLE BRANCH BLOCK BIFASCICULAR BLOCK POSSIBLE ISCHEMIA ABNORMAL ECG RI6.01 Compared to ECG 06/25/2017 16:34:45 Atrial abnormality now present Bifascicular block still present Electronically Signed On 06-27-2017 16:01:31 [employer]PECTOR [employer]AR[employer] by Francis Gray
== END 2017-06-26 19:31 | disposition home or self-care (01) ==
LOC: ER 15:59
DX: E87.5 Hyperkalemia (principal); E11.22 Type 2 diabetes mellitus with diabetic chronic kidney disease; I13.2 Hypertensive heart and chronic kidney disease with heart failure and with stage 5 chronic kidney disease, or end stage renal disease; I50.9 Heart failure, unspecified; N18.6 End stage renal disease; F14.10 Cocaine abuse, uncomplicated; F16.10 Hallucinogen abuse, uncomplicated; E78.00 Pure hypercholesterolemia, unspecified; E03.9 Hypothyroidism, unspecified; G89.29 Other chronic pain; F20.9 Schizophrenia, unspecified; Z86.19 Personal history of other infectious and parasitic diseases; Z87.01 Personal history of pneumonia (recurrent); Z90.710 Acquired absence of both cervix and uterus; Z90.49 Acquired absence of other specified parts of digestive tract; Z88.5 Allergy status to narcotic agent; Z99.2 Dependence on renal dialysis
CPT/HCPCS: 36415; 80053; 85025; 93005; 96374; 96375; 99285; J0610; J1815; J7042